=== PATIENT | male | born 1990 ===

== ENCOUNTER 2020-04-14 12:07 | Inpatient (IN) | payer OTHER, SELFPAY ==
[2020-04-14 12:13] VITALS: BP 138/104; PULSE 88; RESP 20; TEMP 36.9; O2SAT 97; BMI 32.1
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
--- NOTE | 2020-04-14 12:43 | PC.NURSE ---
A Lashawn in, pt w/ red raised area left arm due to injecting meth per pt.
[2020-04-14] MEDS: Lidocaine HCl 2 % MPF 5 ML VIAL SUBCUT (13:12)
--- NOTE | 2020-04-14 13:29 | PC.NURSE ---
Pt resting in room- was seen by Cortez Hardin, left arm abscess drained. Dressing clean, no drainage noted. Packing to be removed in 48 hrs per Cortez Hardin.
[2020-04-14 13:35] LABS: Amphetamine Screen Urine Not Detected (Not Detect); Barbiturates, Urine Not Detected (Not Detect); Benzodiazepines Screen Urine Not Detected (Not Detect); Cannabinoid Screen Urine Not Detected (Not Detect); Cocaine Screen Urine Not Detected (Not Detect); Opiate Screen Urine Not Detected (Not Detect); Phencyclidine Screen Urine Not Detected (Not Detect)
[2020-04-14 13:49] LABS: COVID-19 Test Negative (Negative)
[2020-04-14 14:00] VITALS: RESP 20
[2020-04-14 14:49] LABS: MANUAL DIFF FLAG NO
[2020-04-14 14:53] LABS: Basophils Percent Auto 0.2 % (0-2); Eosinophils Absolute Auto 0.1 X10*3/uL (0.0-0.4); Eosinophils Percent Auto 1.4 % (0-4); Hematocrit 37.1 % (42-52); Hemoglobin 12.5 g/dl (14.0-18.0); Imm Gran Abs Auto 0.01 X10*3/uL (0.00-0.03); Imm Gran Pct Auto 0.1 % (0.0-0.4); Lymphocytes Absolute Auto 2.3 X10*3/uL (1.2-4.9); Lymphocytes Percent Auto 25.5 % (20-40); Mean Corpuscular HGB Conc 33.7 g/dl (31.0-36.0); Mean Corpuscular Hemoglobin 29.5 pg (27.0-33.0); Mean Corpuscular Volume 87.5 fL (80-98); Mean Platelet Volume 9.9 fL (9.4-12.4); Monocytes Absolute Auto 0.4 X10*3/uL (0.1-1.2); Monocytes Percent Auto 4.9 % (2-11); Neutrophils Absolute Auto 6.1 X10*3/uL (2.0-8.3); Neutrophils Percent Auto 67.9 % (45-73); Platelet Count 242 X10*3/uL (160-400); Red Blood Count 4.24 X10*6/uL (4.60-5.80); Red Cell Distribution Width 13.4 % (11.0-16.0)
--- NOTE | 2020-04-14 15:02 | PC.NURSE ---
Called Clearance Representative in [place] to verify prespciption. Pt last received a week's prescription on 03/25/20.
[2020-04-14 15:18] LABS: Ethanol < 10 mg/dL
[2020-04-14 15:24] LABS: Alanine Aminotransferase 179 U/L (0-40); Albumin Level 3.6 g/dL (3.5-5.0); Alkaline Phosphatase 60 U/L (39-117); Anion Gap 9 (12-20); Aspartate Amino Transferase 105 U/L (5-37); Bilirubin Direct < 0.2 mg/dL (0.0-0.5); Bilirubin Total 0.2 mg/dL (0.0-1.0); Blood Urea Nitrogen 10 mg/dL (9-16); Calcium 8.9 mg/dL (8.4-10.2); Carbon Dioxide 30 mmol/L (22-29); Chloride 106 mmol/L (96-108); Creatinine Clr Calc Pharmacy 219.2; Estimated Glomerular Filt Rate > 60; Glucose Random 115 mg/dL (60-115); Potassium 4.2 mmol/L (3.3-5.1); Sodium 141 mmol/L (135-145); Total Protein 6.2 g/dL (6.5-8.0)
[2020-04-14] MEDS: Buprenorphine/Naloxone 8/2 mg FILM 1 FILM SUBLINGUAL ×2 (15:51→20:22)
[2020-04-14 16:00] VITALS: RESP 20
--- NOTE | 2020-04-14 16:34 | PC.NURSE ---
BHN in to evaluate
[2020-04-14 17:26] VITALS: BP 150/102; PULSE 78; RESP 16; TEMP 36.2; O2SAT 97
[2020-04-14 18:00] VITALS: RESP 20
--- NOTE | 2020-04-14 18:11 | PC.NURSE ---
Pt awake, dressing to left arm dry, intact, no concerns reported.
[2020-04-14 20:22] VITALS: BP 131/74; PULSE 75; RESP 18; TEMP 36.8; O2SAT 96
[2020-04-14] MEDS: Prazosin HCL 1 MG CAPSULE 2 MG PO (20:22)
--- NOTE | 2020-04-14 20:37 | PC.NURSE ---
Patient in bed resting quietly, no distress reported, compliant with HS PO medication, will continue to monitor.
[2020-04-15 01:05] VITALS: BP 140/72; PULSE 114; RESP 18; TEMP 36.7; O2SAT 97
[2020-04-15 01:56] VITALS: BMI 30.4
--- NOTE | 2020-04-15 02:33 | PC.ADMIT ---
Addendum entered by Cherry Britt RN 04/15/20 03:27: Medical hx: Tibia Tortion, IBS, HTN, per crisis information Original Note: Patient is a 29 year old Serbian speaking identified self as not a male which was confirmed with patient on admission. Pt was put in 505 to sleep tonight as the result. Communicate to staff coming to next shift to make room change and accommodate for this need as other patients may be d/c'd later on of the day. Patient was brought to [facility] ED via EMS secondary to patient contacting them for SI with plan to OD on meds or on heroin. Patient denied currently SI on admission but reports that he had SI with plan to OD on meds and stated that he experienced more nightmares but feel safe while on the unit. Patient disclosed the conflict between him and his mother and his sister about his SA. As the result he could not go back to the house. Patient stated that but I will able to be back to the house in 2 weeks . Patient did not staff to let his mother know about his SA. Patient denied any recent suicide attempts but reports he had had done in the past but not disclose any details. Medical hx: asthma ? , abscess on L upper arm which was drained while as in the ED on 04/14/20. Patient started on doxycycline 100 BID x7 days first dose given on the evening 04/14/20 with unknown dressing change order. Pysch hx: ADD, PTSD, anxiety, depression. Patient has hx of inpatient detox before for IV drug use heroin. Patient reports that his last use IV Meth a week ago which he had the abscess drained prior to be admitted to . Patient appeared angry/agitated and irritable, guarded on admission. He minimized his SA which lead to his stress and housing issues and family conflict. Utox neg and BAL neg. AST/ALT elevated (105/179). Patient is currently on Suboxone 8/2 mg BID which patient usually take 16mg once a day at home. Patient denied any alcohol abuse with last drink was a month ago. Patient signed CV, on 15 min checks for safety, contracted for safety. Most of medications were verified by this chief writer through [facility] preferred [facility] is currently closed. [facility]al [facility] as Pharm D from [facility] cannot access to the instruction how to take it. VSs stable, HR elevated at 114 as he got agitated prior to be brought up to M5. Continue to monitor for safety and recheck VS in the AM.
[2020-04-15] MEDS: lamoTRIgine 25 MG TABLET 50 MG PO (10:32)
[2020-04-15] MEDS: Buprenorphine/Naloxone 8/2 mg FILM 1 FILM SUBLINGUAL ×2 (10:34→21:07)
[2020-04-15 12:06] VITALS: BP 121/65; PULSE 87; RESP 18; TEMP 37.1; O2SAT 99
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
[2020-04-15 18:00] VITALS: BP 134/75; PULSE 79; TEMP 36.9
[2020-04-15 21:07] VITALS: BP 128/65; PULSE 72
[2020-04-15] MEDS: Prazosin HCL 1 MG CAPSULE 2 MG PO (21:07)
[2020-04-16 06:25] VITALS: BP 104/57; PULSE 66; RESP 18; TEMP 36.8; O2SAT 98
[2020-04-16 09:18] LABS: Cholesterol 140 mg/dL; HDL Cholesterol 44 mg/dL; LDL Cholesterol Calculated 82 mg/dl; Triglycerides 70 mg/dL
[2020-04-16 09:37] LABS: HBS Num1 122.35 mIU/mL (0-7.99); HBc Num1 0.31 S/CO (0.00-0.79); Hepatitis A Antibody IgM 0.13 Index (0-0.79); Hepatitis B Core Antibody Nonreactive (Nonreactive); ~HepC Num1 18.78 S/CO (0.00-0.79); ~Hepatitis A Antibody IgM Nonreactive (Nonreactive); ~Hepatitis B Surface Antibody REACTIVE (Nonreactive); ~Hepatitis C Antibody Reactive (Nonreactive)
[2020-04-16 09:40] LABS: Estimated Average Glucose 91 mg/dL; Hemoglobin A1c % 4.8 %
[2020-04-16 09:41] LABS: HBsAGNum1 0.22 S/CO (0.00-0.99); Hepatitis B Surface Antigen Negative (Negative)
[2020-04-16] MEDS: Buprenorphine/Naloxone 8/2 mg FILM 1 FILM SUBLINGUAL ×2 (09:53→21:29)
[2020-04-16] MEDS: lamoTRIgine 25 MG TABLET 50 MG PO (09:53)
[2020-04-16 10:30] LABS: Folate 14.5 ng/mL (> or = 4.0); Vitamin B12 640 pg/mL (200-900)
[2020-04-16 15:39] LABS: Influenza A PCR NEGATIVE (Negative); Influenza B PCR NEGATIVE (Negative); Resp Syncy Virus RNA Qual PCR NEGATIVE (Negative); SARS COV2 PCR INHOUSE NEGATIVE (Negative)
--- NOTE | 2020-04-16 16:03 | HO.PSYCHPN ---
Subjective Subjective Date of Service: 04/16/20 Reason For Visit: SI Interim History: Wayne has been in her room, no interaction with peers or staff. At times presents as irritable and minimally cooperative. Pt reports she continues to feel depressed. She reports everyone in my life has done something wrong to me, I can't trust anyone. She report she does not have anything to look forward to. She did agree that as she gets more stable she would like referrals to OP psychiatric treatment. She became very tearful talking about her son, and asked that I do not ask about him during our session today. Pt encourage to be more visible in the unit. He denies any plan or intent to hurt herself but does endorse passive suicidal ideation. No VH/AH. Medication Compliance: Yes Side effects from medications: No Attending Groups: No Review of Systems Review of Systems Yes all other systems are reviewed and are negative Constitutional: Reports no additional constitutional complaints, Denies body ache(s), Denies chills, Denies fever(s), Denies headache(s) and Denies weakness Eyes: Reports no additional eye complaints and Denies change in vision Reports system reviewed and no additional complaints, except as documented, Denies dizziness, Denies headache(s), Denies nasal congestion, Denies nasal discharge and Denies neck pain Cardiovascular: Reports no additional cardiovascular complaints, Denies chest pain, Denies leg edema and Denies dyspnea Respiratory: Reports no additional respiratory complaints, Denies cough and Denies dyspnea Gastrointestinal: Reports no additional gastrointestinal complaints, Denies abdominal pain, Denies diarrhea, Denies nausea and Denies vomiting Genitourinary: Denies urinary incontinence Musculoskeletal: Reports no additional musculoskeletal complaints, Denies back pain, Denies arthralgias, Denies joint swelling, Denies neck pain, Denies numbness and Denies tingling Skin/Breast: Reports system reviewed and no additional complaints, except as docu, Reports furuncle and Denies rash Reports system reviewed and no additional complaints, except as documented, Denies Abnormal speech present, Denies dizziness, Denies headache(s), Denies numbness, Denies tingling and Denies weakness Psychiatric: Denies anxiety, Reports depression, Denies visual hallucinations, Denies hallucinations, Denies tactile hallucinations, Denies homicidal ideation and Reports suicidal ideation Mental Status Exam Mental Status Exam Narrative: Appearance: MO, wearing hospital gown, disheveled, poor hygiene Behavior: irritable, guarded Psychomotor: intermittent agitation at times Speech: clear, normal rate/rhythm/volume, spontaneous TP: linear TC: no signs of psychosis, feeling depressed, suicidal, anxious Mood: depressed Affect: very irritable VH/AH: none Delusions: none Insight/judgment: poor x 2. memory/cog: alert, oriented x 3. Diagnostics Vital Signs (24Hr): Vital Signs - 24 hr 04/15/20 18:00 04/15/20 21:07 04/16/20 06:25 Temperature 98.5 F 98.3 F Pulse Rate 79 72 66 Respiratory Rate 18 Blood Pressure 134/75 128/65 104/57 L Pulse Oximetry 98 Body Mass Index 30.4 Labs Results: 04/14/20 14:42 04/14/20 14:42 Labs: Laboratory Results - last 48 hr 04/16/20 04/16/20 04/16/20 08:04 08:04 08:04 Estimat Average Glucose 91 Hemoglobin A1c % 4.8 Triglycerides Cholesterol LDL Cholesterol, Calc HDL Cholesterol Vitamin B12 640 Folate 14.5 Coronavirus (PCR) Hepatitis A IgM Ab Nonreactive Hep Bs Antigen Negative Hep Bs Antibody REACTIVE Hep B Core Total Ab Nonreactive Hepatitis C Ab (EIA) Reactive H Influenza Type A (PCR) Influenza Type B (PCR) RSV RNA Qual (PCR) 04/16/20 04/16/20 08:06 14:37 Estimat Average Glucose Hemoglobin A1c % Triglycerides 70 Cholesterol 140 LDL Cholesterol, Calc 82 HDL Cholesterol 44 Vitamin B12 Folate Coronavirus (PCR) NEGATIVE Hepatitis A IgM Ab Hep Bs Antigen Hep Bs Antibody Hep B Core Total Ab Hepatitis C Ab (EIA) Influenza Type A (PCR) NEGATIVE Influenza Type B (PCR) NEGATIVE RSV RNA Qual (PCR) NEGATIVE Medications Medications Current Medications Generic Name Dose Route Start Last Admin Trade Name Freq PRN Reason Stop Dose Admin Buprenorphine/Naloxone 1 film 04/14/20 21:00 04/16/20 09:53 Buprenorphine/Naloxone 8/2 Mg Film SUBLINGUAL 1 film BID ANGELES Administration Docusate Sodium 100 mg 04/15/20 00:29 Docusate Sodium 100 Mg Capsule PO BID PRN Constipation Doxycycline Hyclate 100 mg 04/14/20 21:00 04/16/20 09:53 Doxycycline Hyclate 100 Mg Tablet PO 04/21/20 21:00 100 mg BID ANGELES Administration Famotidine 20 mg 04/15/20 00:29 Famotidine 20 Mg Tablet PO TID PRN gerd Hydroxyzine HCl 50 mg 04/15/20 00:29 Hydroxyzine Hcl 25 Mg Tablet PO QID PRN Anxiety Ibuprofen 600 mg 04/15/20 00:29 Ibuprofen 600 Mg Tablet PO Q8H PRN Pain, Mild (Pain Scale 1-3) Lamotrigine 50 mg 04/15/20 09:00 04/16/20 09:53 Lamotrigine 25 Mg Tablet PO 50 mg DAILY ANGELES Administration Nicotine 21 mg 04/15/20 09:00 04/16/20 09:56 Nicotine 21 Mg Patch.Td24 TRANSDERMA Not Given DAILY ANGELES Nicotine Polacrilex 4 mg 04/15/20 00:29 Nicotine Polacrilex 2 Mg Gum BUCCAL Q2H PRN Nicotine Cravings Prazosin HCl 2 mg 04/14/20 21:00 04/15/20 21:07 Prazosin Hcl 1 Mg Capsule PO 2 mg BEDTIME ANGELES Administration Protocol Trazodone HCl 50 mg 04/15/20 00:29 Trazodone Hcl 50 Mg Tablet PO BEDTIME PRN Insomnia Allergies Allergies Allergy/AdvReac Type Severity Reaction Status Date / Time aripiprazole [From ABILIFY] Allergy Unknown UNKNOWN Unverified 11/22/19 19:33 Assessment & Plan Assessment & Plan (1) PTSD (post-traumatic stress disorder): Status: Acute Code(s): F43.10 - Post-traumatic stress disorder, unspecified Assessment and Plan: 1. Admit to M5 2. Increase Lamictal to 50mg po BID 3. Atarax 50mg po q6h 4. Prazosin 2mg po qhs. 5. Pt reports antidepressants have not been helpful. (2) Stimulant abuse: Status: Acute Code(s): F15.10 - Other stimulant abuse, uncomplicated Greater than 50% of the session was spent on counseling and/or coordination of care Reason for contiued inpatient stay Substantial Risk for: harm to self
[2020-04-16 18:00] VITALS: BP 129/70; PULSE 95; TEMP 36.4
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
[2020-04-16 21:28] VITALS: BP 141/70; PULSE 95
[2020-04-16] MEDS: Prazosin HCL 1 MG CAPSULE 2 MG PO (21:28)
[2020-04-17 06:30] VITALS: BP 107/66; PULSE 71; RESP 16; TEMP 36.6; O2SAT 99
[2020-04-17 07:00] VITALS: BMI 30.9
[2020-04-17] MEDS: lamoTRIgine 25 MG TABLET 50 MG PO ×2 (09:05→20:27)
[2020-04-17] MEDS: Buprenorphine/Naloxone 8/2 mg FILM 1 FILM SUBLINGUAL ×2 (09:06→20:28)
[2020-04-17] MEDS: Nicotine 21 MG PATCH.TD24 TRANSDERMA (09:06)
--- NOTE | 2020-04-17 15:20 | P.PNPSI_ITS ---
Subjective Subjective Date of Service: 04/17/20 Reason For Visit: SI Interim History: Wayne has been more visible today. She reports she feels less overwhelmed and depressed. She continues to report feeling hopeless and anxious at times but denies any plan or intent to hurt herself. She was encouraged to go to groups. She reports sleeping and eating better. She denies nightmares with prazosin but agrees to go back to higher dose as it also helps with anxiety. Review of Systems Review of Systems Yes all other systems are reviewed and are negative Constitutional: Reports no additional constitutional complaints, Denies body ac he(s), Denies chills, Denies fever(s), Denies headache(s) and Denies weakness Eyes: Reports no additional eye complaints and Denies change in vision Reports system reviewed and no additional complaints, except as documented, Denies dizziness, Denies headache(s), Denies nasal congestion, Denies nasal discharge and Denies neck pain Cardiovascular: Reports no additional cardiovascular complaints, Denies chest pain, Denies leg edema and Denies dyspnea Respiratory: Reports no additional respiratory complaints, Denies cough and Denies dyspnea Gastrointestinal: Reports no additional gastrointestinal complaints, Denies abdominal pain, Denies diarrhea, Denies nausea and Denies vomiting Genitourinary: Denies urinary incontinence Musculoskeletal: Reports no additional musculoskeletal complaints, Denies back pain, Denies arthralgias, Denies joint swelling, Denies neck pain, Denies numbness and Denies tingling Skin/Breast: Reports system reviewed and no additional complaints, except as docu, Reports furuncle and Denies rash Reports system reviewed and no additional complaints, except as documented, Denies Abnormal speech present, Denies dizziness, Denies headache(s), Denies numbness, Denies tingling and Denies weakness Psychiatric: Denies anxiety, Reports depression, Denies visual hallucinations, Denies hallucinations, Denies tactile hallucinations, Denies homicidal ideation and Reports suicidal ideation Mental Status Exam Mental Status Exam Narrative: Appearance: MO, wearing hospital gown, disheveled, poor hygiene Behavior: irritable, guarded Psychomotor: intermittent agitation at times Speech: clear, normal rate/rhythm/volume, spontaneous TP: linear TC: no signs of psychosis, feeling depressed, suicidal, anxious Mood: depressed Affect: very irritable VH/AH: none Delusions: none Insight/judgment: poor x 2. memory/cog: alert, oriented x 3. Diagnostics Vital Signs (24Hr): Vital Signs - 24 hr 04/16/20 18:00 04/16/20 21:28 04/17/20 06:30 Temperature 97.5 F 98 F Pulse Rate 95 95 71 Respiratory Rate 16 Blood Pressure 129/70 141/70 H 107/66 Pulse Oximetry 99 Body Mass Index 30.9 Labs Results: 04/14/20 14:42 04/14/20 14:42 Labs: Laboratory Results - last 48 hr 04/16/20 04/16/20 04/16/20 08:04 08:04 08:04 Estimat Average Glucose 91 Hemoglobin A1c % 4.8 Triglycerides Cholesterol LDL Cholesterol, Calc HDL Cholesterol Vitamin B12 640 Folate 14.5 Coronavirus (PCR) Hepatitis A IgM Ab Nonreactive Hep Bs Antigen Negative Hep Bs Antibody REACTIVE Hep B Core Total Ab Nonreactive Hepatitis C Ab (EIA) Reactive H Influenza Type A (PCR) Influenza Type B (PCR) RSV RNA Qual (PCR) 04/16/20 04/16/20 08:06 14:37 Estimat Average Glucose Hemoglobin A1c % Triglycerides 70 Cholesterol 140 LDL Cholesterol, Calc 82 HDL Cholesterol 44 Vitamin B12 Folate Coronavirus (PCR) NEGATIVE Hepatitis A IgM Ab Hep Bs Antigen Hep Bs Antibody Hep B Core Total Ab Hepatitis C Ab (EIA) Influenza Type A (PCR) NEGATIVE Influenza Type B (PCR) NEGATIVE RSV RNA Qual (PCR) NEGATIVE Medications Medications Current Medications Generic Name Dose Route Start Last Admin Trade Name Freq PRN Reason Stop Dose Admin Buprenorphine/Naloxone 1 film 04/14/20 21:00 04/17/20 09:06 Buprenorphine/Naloxone 8/2 Mg Film SUBLINGUAL 1 film BID ANGELES Administration Docusate Sodium 100 mg 04/15/20 00:29 Docusate Sodium 100 Mg Capsule PO BID PRN Constipation Doxycycline Hyclate 100 mg 04/14/20 21:00 04/17/20 09:06 Doxycycline Hyclate 100 Mg Tablet PO 04/21/20 21:00 100 mg BID ANGELES Administration Famotidine 20 mg 04/15/20 00:29 Famotidine 20 Mg Tablet PO TID PRN gerd Hydroxyzine HCl 50 mg 04/15/20 00:29 Hydroxyzine Hcl 25 Mg Tablet PO QID PRN Anxiety Ibuprofen 600 mg 04/15/20 00:29 Ibuprofen 600 Mg Tablet PO Q8H PRN Pain, Mild (Pain Scale 1-3) Lamotrigine 50 mg 04/15/20 09:00 04/17/20 09:05 Lamotrigine 25 Mg Tablet PO 50 mg DAILY ANGELES Administration Nicotine 21 mg 04/15/20 09:00 04/17/20 09:06 Nicotine 21 Mg Patch.Td24 TRANSDERMA 21 mg DAILY ANGELES Administration Nicotine Polacrilex 4 mg 04/15/20 00:29 Nicotine Polacrilex 2 Mg Gum BUCCAL Q2H PRN Nicotine Cravings Prazosin HCl 2 mg 04/14/20 21:00 04/16/20 21:28 Prazosin Hcl 1 Mg Capsule PO 2 mg BEDTIME ANGELES Administration Protocol Trazodone HCl 50 mg 04/15/20 00:29 Trazodone Hcl 50 Mg Tablet PO BEDTIME PRN Insomnia Allergies Allergies Allergy/AdvReac Type Severity Reaction Status Date / Time aripiprazole [From ABILIY] Allergy Unknown UNKNOWN Unverified 11/22/19 19:33 Assessment & Plan Assessment & Plan (1) Abscess: Status: Acute Code(s): L02.91 - Cutaneous abscess, unspecified Assessment and Plan: 1. Continue wound care, antibiotics (2) Acute post-traumatic stress disorder: Status: Acute Code(s): F43.11 - Post-traumatic stress disorder, acute Assessment and Plan: 1. increase Prazosin to 4mg po qhs 2. continue lamictal (3) PTSD (post-traumatic stress disorder): Status: Acute Code(s): F43.10 - Post-traumatic stress disorder, unspecified (4) Stimulant abuse: Status: Acute Code(s): F15.10 - Other stimulant abuse, uncomplicated Greater than 50% of the session was spent on counseling and/or coordination of care Reason for contiued inpatient stay Substantial Risk for: harm to self
[2020-04-17] MEDS: Nicotine Polacrilex 2 MG GUM 4 MG BUCCAL ×2 (16:23→19:25)
[2020-04-17 19:30] VITALS: BP 135/82; PULSE 99; TEMP 36.8
[2020-04-17 20:26] VITALS: BP 135/82; PULSE 99
[2020-04-17] MEDS: Prazosin HCL 1 MG CAPSULE 4 MG PO (20:26)
--- NOTE | 2020-04-17 23:26 | PC.NURSE ---
Pt expressed to this tag writer at that she would like her Suboxone 8/2mg SL BID order changed. Pt said she doesn't like to take the second dose of Suboxone so late. Pt said she hoped she could take it all at once in the AM, 16/4mg SL Daily. This tag writer explained that that might be too sedating and asked if she would tolerate Suboxone 8/2mg SL BID at 0800 and 1700 better and avoid the sedation of getting it all in one dose. Pt agreed that it would be acceptable if she got the second dose at 1700.
[2020-04-17] MEDS: hydrOXYzine HCL 25 MG TABLET 50 MG PO (23:45)
[2020-04-18 06:25] VITALS: BP 114/58; PULSE 76; RESP 18; TEMP 36.9; O2SAT 96
[2020-04-18] MEDS: Buprenorphine/Naloxone 8/2 mg FILM 1 FILM SUBLINGUAL ×2 (09:21→14:12)
[2020-04-18] MEDS: lamoTRIgine 25 MG TABLET 50 MG PO ×2 (09:21→20:22)
--- NOTE | 2020-04-18 13:26 | HO.PSYCHPN ---
Subjective Subjective Date of Service: 04/18/20 Reason For Visit: SI Interim History: Wayne was up this morning, more visible in the unit. She reports sleeping better, denies having nightmares. She reports feeling slightly more hopeful about her future but continues to report depressed mood. She reports eating as usual. However, she does continue to stay mostly in bed, minimally interactive with peers. Fair hygiene. Review of Systems Review of Systems Yes all other systems are reviewed and are negative Constitutional: Reports no additional constitutional complaints, Denies body ache(s), Denies chills, Denies fever(s), Denies headache(s) and Denies weakness Eyes: Reports no additional eye complaints and Denies change in vision Reports system reviewed and no additional complaints, except as documented, Denies dizziness, Denies headache(s), Denies nasal congestion, Denies nasal discharge and Denies neck pain Cardiovascular: Reports no additional cardiovascular complaints, Denies chest pain, Denies leg edema and Denies dyspnea Respiratory: Reports no additional respiratory complaints, Denies cough and Denies dyspnea Gastrointestinal: Reports no additional gastrointestinal complaints, Denies abdominal pain, Denies diarrhea, Denies nausea and Denies vomiting Genitourinary: Denies urinary incontinence Musculoskeletal: Reports no additional musculoskeletal complaints, Denies back pain, Denies arthralgias, Denies joint swelling, Denies neck pain, Denies numbness and Denies tingling Skin/Breast: Reports system reviewed and no additional complaints, except as docu, Reports furuncle and Denies rash Reports system reviewed and no additional complaints, except as documented, Denies Abnormal speech present, Denies dizziness, Denies headache(s), Denies numbness, Denies tingling and Denies weakness Psychiatric: Denies anxiety, Reports depression, Denies visual hallucinations, Denies hallucinations, Denies tactile hallucinations, Denies homicidal ideation and Reports suicidal ideation Mental Status Exam Mental Status Exam Narrative: Appearance: [place], wearing hospital gown, disheveled, poor hygiene Behavior: irritable, guarded Psychomotor: intermittent agitation at times Speech: clear, normal rate/rhythm/volume, spontaneous TP: linear TC: no signs of psychosis, feeling depressed, suicidal, anxious Mood: depressed Affect: very irritable VH/AH: none Si: passive, no plan HI: denies Delusions: none Insight/judgment: poor x 2. memory/cog: alert, oriented x 3. Diagnostics Vital Signs (24Hr): Vital Signs - 24 hr 04/17/20 19:30 04/17/20 20:26 04/18/20 06:25 Temperature 98.3 F 98.5 F Pulse Rate 99 99 76 Respiratory Rate 18 Blood Pressure 135/82 135/82 114/58 L Pulse Oximetry 96 Body Mass Index 30.9 Labs Results: 04/14/20 14:42 04/14/20 14:42 Labs: Laboratory Results - last 48 hr 04/16/20 14:37 Coronavirus (PCR) NEGATIVE Influenza Type A (PCR) NEGATIVE Influenza Type B (PCR) NEGATIVE RSV RNA Qual (PCR) NEGATIVE Medications Medications Current Medications Generic Name Dose Route Start Last Admin Trade Name Freq PRN Reason Stop Dose Admin Buprenorphine/Naloxone 1 film 04/14/20 21:00 04/18/20 09:21 Buprenorphine/Naloxone 8/2 Mg Film SUBLINGUAL 1 film BID ANGELES Administration Docusate Sodium 100 mg 04/15/20 00:29 Docusate Sodium 100 Mg Capsule PO BID PRN Constipation Doxycycline Hyclate 100 mg 04/14/20 21:00 04/18/20 09:21 Doxycycline Hyclate 100 Mg Tablet PO 04/21/20 21:00 100 mg BID ANGLEES Administration Famotidine 20 mg 04/15/20 00:29 Famotidine 20 Mg Tablet PO TID PRN gerd Hydroxyzine HCl 50 mg 04/15/20 00:29 04/17/20 23:45 Hydroxyzine Hcl 25 Mg Tablet PO 50 mg QID PRN Administration Anxiety Ibuprofen 600 mg 04/15/20 00:29 Ibuprofen 600 Mg Tablet PO Q8H PRN Pain, Mild (Pain Scale 1-3) Lamotrigine 50 mg 04/17/20 21:00 04/18/20 09:21 Lamotrigine 25 Mg Tablet PO 50 mg BID ANGELES Administration Nicotine 21 mg 04/15/20 09:00 04/18/20 12:15 Nicotine 21 Mg Patch.Td24 TRANSDERMA Not Given DAILY ANGELES Nicotine Polacrilex 4 mg 04/15/20 00:29 04/17/20 19:25 Nicotine Polacrilex 2 Mg Gum BUCCAL 4 mg Q2H PRN Administration Nicotine Cravings Prazosin HCl 4 mg 04/17/20 21:00 04/17/20 20:26 Prazosin Hcl 1 Mg Capsule PO 4 mg BEDTIME ANGELES Administration Protocol Trazodone HCl 50 mg 04/15/20 00:29 Trazodone Hcl 50 Mg Tablet PO BEDTIME PRN Insomnia Allergies Allergies Allergy/AdvReac Type Severity Reaction Status Date / Time aripiprazole [From [facility]] Allergy Unknown UNKNOWN Unverified 11/22/19 19:33 Assessment & Plan Assessment & Plan (1) Abscess: Status: Acute Code(s): L02.91 - Cutaneous abscess, unspecified Assessment and Plan: 1. Continue wound care, antibiotics (2) Acute post-traumatic stress disorder: Status: Acute Code(s): F43.11 - Post-traumatic stress disorder, acute Assessment and Plan: 1. increase Prazosin to 4mg po qhs 2. continue lamictal 50mg po BID (3) PTSD (post-traumatic stress disorder): Status: Acute Code(s): F43.10 - Post-traumatic stress disorder, unspecified (4) Stimulant abuse: Status: Acute Code(s): F15.10 - Other stimulant abuse, uncomplicated Greater than 50% of the session was spent on counseling and/or coordination of care Reason for contiued inpatient stay Substantial Risk for: harm to self
[2020-04-18] MEDS: Nicotine Polacrilex 2 MG GUM 4 MG BUCCAL ×2 (18:26→20:22)
[2020-04-18 20:15] VITALS: BP 125/70; PULSE 100; TEMP 37.4; O2SAT 100
[2020-04-18 20:23] VITALS: BP 125/70; PULSE 100
[2020-04-18] MEDS: Prazosin HCL 1 MG CAPSULE 4 MG PO (20:23)
[2020-04-18] MEDS: hydrOXYzine HCL 25 MG TABLET 50 MG PO (21:28)
[2020-04-18 22:40] VITALS: TEMP 37.1
[2020-04-19 06:45] VITALS: BP 92/49; PULSE 72; RESP 14; TEMP 36.3; O2SAT 98
[2020-04-19] MEDS: lamoTRIgine 25 MG TABLET 50 MG PO ×2 (09:19→20:33)
[2020-04-19] MEDS: Buprenorphine/Naloxone 8/2 mg FILM 2 FILM SUBLINGUAL (09:19)
[2020-04-19] MEDS: Nicotine 21 MG PATCH.TD24 TRANSDERMA (09:20)
[2020-04-19] MEDS: Nicotine Polacrilex 2 MG GUM 4 MG BUCCAL ×3 (10:09→21:11)
--- NOTE | 2020-04-19 14:50 | PC.NURSE ---
Gauze changed on L antecubital. No drainage, no complaints offered.
[2020-04-19 17:09] VITALS: BP 132/75; PULSE 109; RESP 18; TEMP 37.2; O2SAT 100
[2020-04-19 19:08] VITALS: BP 128/64; PULSE 83; TEMP 37.1
[2020-04-19 20:33] VITALS: BP 128/64; PULSE 83
[2020-04-19] MEDS: Prazosin HCL 1 MG CAPSULE 4 MG PO (20:33)
[2020-04-19] MEDS: hydrOXYzine HCL 25 MG TABLET 50 MG PO (20:36)
--- NOTE | 2020-04-19 22:16 | HO.PSYCHPN ---
Subjective Subjective Date of Service: 04/19/20 Reason For Visit: SI Interim History: Pt seen, chart reviewed, case discussed vitals reviewed: temp:99.7 Pt sitting in dark room; avoids eye contact; marginally cooperative. Pt says he's fine and agrees that he's better than when first admitted which he thinks is related to getting back on Lamictal. Pt says he's sleeping well. He denies SI. Pt says he does not need anything or have any complaints. Medication Compliance: Yes Attending Groups: No Mental Status Exam Mental Status Exam Narrative: Patient Appearance: Unkempt hair Patient Orientation: Person, Place, Time and Situation Level of Consciousness: Awake and Appropriate Patient Behavior: marginally Cooperative; avoiding Eye Contact Mood Description: irritable Affect Description: congruent Ability to Follow Directions: fair Speech Pattern: Clear and Appropriate Hallucinations: None Delusions: Not Present Thought Process: Intact Thought Content: denies SI Judgement and Insight: appears intact Diagnostics Vital Signs (24Hr): Vital Signs - 24 hr 04/18/20 22:40 04/19/20 06:45 04/19/20 17:09 Temperature 98.8 F 97.4 F 98.9 F Pulse Rate 72 109 H Respiratory Rate 14 18 Blood Pressure 92/49 L 132/75 Pulse Oximetry 98 100 04/19/20 19:08 04/19/20 20:33 Temperature 98.7 F Pulse Rate 83 83 Respiratory Rate Blood Pressure 128/64 128/64 Pulse Oximetry Body Mass Index 30.9 Labs Results: 04/14/20 14:42 04/14/20 14:42 Medications Medications Current Medications Generic Name Dose Route Start Last Admin Trade Name Kolbyq PRN Reason Stop Dose Admin Buprenorphine/Naloxone 2 film 04/19/20 09:00 04/19/20 09:19 Buprenorphine/Naloxone 8/2 Mg Film SUBLINGUAL 2 film DAILY ANGELES Administration Docusate Sodium 100 mg 04/15/20 00:29 Docusate Sodium 100 Mg Capsule PO BID PRN Constipation Doxycycline Hyclate 100 mg 04/14/20 21:00 04/19/20 20:33 Doxycycline Hyclate 100 Mg Tablet PO 04/21/20 21:00 100 mg BID ANGEELS Administration Famotidine 20 mg 04/15/20 00:29 Famotidine 20 Mg Tablet PO TID PRN gerd Hydroxyzine HCl 50 mg 04/15/20 00:29 04/19/20 20:36 Hydroxyzine Hcl 25 Mg Tablet PO 50 mg QID PRN Administration Anxiety Ibuprofen 600 mg 04/15/20 00:29 Ibuprofen 600 Mg Tablet PO Q8H PRN Pain, Mild (Pain Scale 1-3) Lamotrigine 50 mg 04/17/20 21:00 04/19/20 20:33 Lamotrigine 25 Mg Tablet PO 50 mg BID ANGELES Administration Nicotine 21 mg 04/15/20 09:00 04/19/20 09:20 Nicotine 21 Mg Patch.Td24 TRANSDERMA 21 mg DAILY ANGELES Administration Nicotine Polacrilex 4 mg 04/15/20 00:29 04/19/20 21:11 Nicotine Polacrilex 2 Mg Gum BUCCAL 4 mg Q2H PRN Administration Nicotine Cravings Prazosin HCl 4 mg 04/17/20 21:00 04/19/20 20:33 Prazosin Hcl 1 Mg Capsule PO 4 mg BEDTIME ANGELES Administration Protocol Trazodone HCl 50 mg 04/15/20 00:29 Trazodone Hcl 50 Mg Tablet PO BEDTIME PRN Insomnia Allergies Allergies Allergy/AdvReac Type Severity Reaction Status Date / Time aripiprazole [From [facility]] Allergy Unknown UNKNOWN Unverified 11/22/19 19:33 Assessment & Plan Impression: stabilizing; remains mostly isolated; adhering with meds DX ptsd, chronic plan: continue with current tx plan Greater than 50% of the session was spent on counseling and/or coordination of care Reason for contiued inpatient stay Substantial Risk for: med/psych decompensation
[2020-04-20 06:50] VITALS: BP 98/57; PULSE 65; RESP 1; TEMP 37.1; O2SAT 98
[2020-04-20] MEDS: Buprenorphine/Naloxone 8/2 mg FILM 2 FILM SUBLINGUAL (09:48)
[2020-04-20] MEDS: Nicotine 21 MG PATCH.TD24 TRANSDERMA (09:49)
[2020-04-20] MEDS: lamoTRIgine 25 MG TABLET 50 MG PO ×2 (09:49→21:00)
--- NOTE | 2020-04-20 10:30 | HO.PSYCHPN ---
Subjective Subjective Date of Service: 04/20/20 Reason For Visit: SI Interim History: Pt seen, chart reviewed, case discussed vitals reviewed: WNL Pt guarded; says he's good. He denies any complaints; says he does not need anything. Medication Compliance: Yes Attending Groups: No Mental Status Exam Mental Status Exam Narrative: Patient Appearance: Unkempt hair Patient Orientation: Person, Place, Time and Situation Level of Consciousness: Awake and Appropriate Patient Behavior: marginally Cooperative; avoiding Eye Contact Mood Description: irritable Affect Description: congruent Ability to Follow Directions: fair Speech Pattern: Clear and Appropriate Hallucinations: None Delusions: Not Present Thought Process: Intact Thought Content: denies SI Judgement and Insight: appears intact Diagnostics Vital Signs (24Hr): Vital Signs - 24 hr 04/19/20 17:09 04/19/20 19:08 04/19/20 20:33 Temperature 98.9 F 98.7 F Pulse Rate 109 H 83 83 Respiratory Rate 18 Blood Pressure 132/75 128/64 128/64 Pulse Oximetry 100 04/20/20 06:50 Temperature 98.7 F Pulse Rate 65 Respiratory Rate 1 L Blood Pressure 98/57 L Pulse Oximetry 98 Body Mass Index 30.9 Labs Results: 04/14/20 14:42 04/14/20 14:42 Medications Medications Current Medications Generic Name Dose Route Start Last Admin Trade Name Freq PRN Reason Stop Dose Admin Buprenorphine/Naloxone 2 film 04/19/20 09:00 04/20/20 09:48 Buprenorphine/Naloxone 8/2 Mg Film SUBLINGUAL 2 film DAILY ANGELES Administration Docusate Sodium 100 mg 04/15/20 00:29 Docusate Sodium 100 Mg Capsule PO BID PRN Constipation Doxycycline Hyclate 100 mg 04/14/20 21:00 04/20/20 09:49 Doxycycline Hyclate 100 Mg Tablet PO 04/21/20 21:00 100 mg BID ANGELES Administration Famotidine 20 mg 04/15/20 00:29 Famotidine 20 Mg Tablet PO TID PRN gerd Hydroxyzine HCl 50 mg 04/15/20 00:29 04/19/20 20:36 Hydroxyzine Hcl 25 Mg Tablet PO 50 mg QID PRN Administration Anxiety Ibuprofen 600 mg 04/15/20 00:29 Ibuprofen 600 Mg Tablet PO Q8H PRN Pain, Mild (Pain Scale 1-3) Lamotrigine 50 mg 04/17/20 21:00 04/20/20 09:49 Lamotrigine 25 Mg Tablet PO 50 mg BID ANGELES Administration Nicotine 21 mg 04/15/20 09:00 04/20/20 09:49 Nicotine 21 Mg Patch.Td24 TRANSDERMA 21 mg DAILY ANGELES Administration Nicotine Polacrilex 4 mg 04/15/20 00:29 04/19/20 21:11 Nicotine Polacrilex 2 Mg Gum BUCCAL 4 mg Q2H PRN Administration Nicotine Cravings Prazosin HCl 4 mg 04/17/20 21:00 04/19/20 20:33 Prazosin Hcl 1 Mg Capsule PO 4 mg BEDTIME ANGELES Administration Protocol Trazodone HCl 50 mg 04/15/20 00:29 Trazodone Hcl 50 Mg Tablet PO BEDTIME PRN Insomnia Allergies Allergies Allergy/AdvReac Type Severity Reaction Status Date / Time aripiprazole [From [facility]] Allergy Unknown UNKNOWN Unverified 11/22/19 19:33 Assessment & Plan Impression: stabilizing; less isolated today, out in milue more; adhering with meds DX ptsd, chronic plan: continue with current tx plan Greater than 50% of the session was spent on counseling and/or coordination of care Reason for contiued inpatient stay Substantial Risk for: med/psych decompensation
[2020-04-20] MEDS: Nicotine Polacrilex 2 MG GUM 4 MG BUCCAL ×3 (13:04→18:47)
[2020-04-20] MEDS: hydrOXYzine HCL 25 MG TABLET 50 MG PO ×2 (15:27→21:00)
[2020-04-20 16:51] VITALS: BP 123/68; PULSE 89; TEMP 37.2
[2020-04-20 21:00] VITALS: BP 149/84; PULSE 89
[2020-04-20] MEDS: Prazosin HCL 1 MG CAPSULE 4 MG PO (21:00)
[2020-04-21 06:50] VITALS: BP 113/57; PULSE 69; RESP 18; TEMP 36.9; O2SAT 98
[2020-04-21] MEDS: Nicotine 21 MG PATCH.TD24 TRANSDERMA (09:29)
[2020-04-21] MEDS: Buprenorphine/Naloxone 8/2 mg FILM 2 FILM SUBLINGUAL (09:29)
[2020-04-21] MEDS: lamoTRIgine 25 MG TABLET 50 MG PO ×2 (09:29→20:57)
[2020-04-21] MEDS: Nicotine Polacrilex 2 MG GUM 4 MG BUCCAL ×5 (13:59→23:18)
[2020-04-21 18:00] VITALS: BP 123/67; PULSE 79; TEMP 36.8
[2020-04-21] MEDS: hydrOXYzine HCL 25 MG TABLET 50 MG PO ×2 (18:24→21:05)
[2020-04-21 20:57] VITALS: BP 123/67; PULSE 79
[2020-04-21] MEDS: Prazosin HCL 1 MG CAPSULE 4 MG PO (20:57)
[2020-04-22 06:40] VITALS: BP 103/55; PULSE 72; RESP 16; TEMP 36.1; O2SAT 96
[2020-04-22] MEDS: lamoTRIgine 25 MG TABLET 50 MG PO (09:25)
[2020-04-22] MEDS: Nicotine 21 MG PATCH.TD24 TRANSDERMA (09:25)
[2020-04-22] MEDS: Buprenorphine/Naloxone 8/2 mg FILM 2 FILM SUBLINGUAL (09:25)
--- NOTE | 2020-04-22 09:34 | P.PNPSI_ITS ---
Subjective Subjective Date of Service: 04/21/20 Reason For Visit: SI Interim History: Pt seen, chart reviewed, case discussed vitals reviewed Pt guarded; asleep in dark room. [employer] woke pt up; pt says he's good. He denies any complaints; says he does not need anything. Medication Compliance: Yes Attending Groups: No Mental Status Exam Mental Status Exam Narrative: Patient Appearance: Unkempt hair Patient Orientation: Person, Place, Time and Situation Level of Consciousness: Awake and Appropriate Patient Behavior: marginally Cooperative; avoiding Eye Contact Mood Description: irritable Affect Description: congruent Ability to Follow Directions: fair Speech Pattern: Clear and Appropriate Hallucinations: None Delusions: Not Present Thought Process: Intact Thought Content: denies SI Judgement and Insight: appears intact Diagnostics Vital Signs (24Hr): Vital Signs - 24 hr 04/21/20 18:00 04/21/20 20:57 04/22/20 06:40 Temperature 98.3 F 96.9 F Pulse Rate 79 79 72 Respiratory Rate 16 Blood Pressure 123/67 123/67 103/55 L Pulse Oximetry 96 Body Mass Index 30.9 Labs Results: 04/14/20 14:42 04/14/20 14:42 Medications Medications Current Medications Generic Name Dose Route Start Last Admin Trade Name Freq PRN Reason Stop Dose Admin Buprenorphine/Naloxone 2 film 04/19/20 09:00 04/22/20 09:25 Buprenorphine/Naloxone 8/2 Mg Film SUBLINGUAL 2 film DAILY ANGELES Administration Docusate Sodium 100 mg 04/15/20 00:29 Docusate Sodium 100 Mg Capsule PO BID PRN Constipation Famotidine 20 mg 04/15/20 00:29 Famotidine 20 Mg Tablet PO TID PRN gerd Hydroxyzine HCl 50 mg 04/15/20 00:29 04/21/20 21:05 Hydroxyzine Hcl 25 Mg Tablet PO 50 mg QID PRN Administration Anxiety Ibuprofen 600 mg 04/15/20 00:29 Ibuprofen 600 Mg Tablet PO Q8H PRN Pain, Mild (Pain Scale 1-3) Lamotrigine 50 mg 04/17/20 21:00 04/22/20 09:25 Lamotrigine 25 Mg Tablet PO 50 mg BID ANGELES Administration Nicotine 21 mg 04/15/20 09:00 04/22/20 09:25 Nicotine 21 Mg Patch.Td24 TRANSDERMA 21 mg DAILY ANGELES Administration Nicotine Polacrilex 4 mg 04/15/20 00:29 04/21/20 23:18 Nicotine Polacrilex 2 Mg Gum BUCCAL 4 mg Q2H PRN Administration Nicotine Cravings Prazosin HCl 4 mg 04/17/20 21:00 04/21/20 20:57 Prazosin Hcl 1 Mg Capsule PO 4 mg BEDTIME ANGELES Administration Protocol Trazodone HCl 50 mg 04/15/20 00:29 Trazodone Hcl 50 Mg Tablet PO BEDTIME PRN Insomnia Allergies Allergies Allergy/AdvReac Type Severity Reaction Status Date / Time aripiprazole [From [facility]] Allergy Unknown UNKNOWN Unverified 11/22/19 19:33 Assessment & Plan Impression: stabilizing; less isolated today, out in milue more; adhering with meds DX ptsd, chronic plan: continue with current tx plan Greater than 50% of the session was spent on counseling and/or coordination of care Reason for contiued inpatient stay Substantial Risk for: med/psych decompensation
--- NOTE | 2020-04-22 10:49 | P.PNPSI_ITS ---
Subjective Subjective Date of Service: 04/22/20 Reason For Visit: SI Interim History: Pt slightly more visible over the weekend but does not attend groups, nor she interacts with peers. She reports overall feeling less overwhelmed. She reports decreased nightmares with prazosin. She continues to talk about self as someone who everybody despises, no one cares about me. She reports decreased anxious mood. She continues to endorse depressed mood, anhedonia, intermittent suicidal ideation but denies any plan or intent to hurt self. We discussed increasing Lamictal. Review of Systems Review of Systems Yes all other systems are reviewed and are negative Constitutional: Reports no additional constitutional complaints, Denies body ache(s), Denies chills, Denies fever(s), Denies headache(s) and Denies weakness Eyes: Reports no additional eye complaints and Denies change in vision Reports system reviewed and no additional complaints, except as documented, Denies dizziness, Denies headache(s), Denies nasal congestion, Denies nasal dis charge and Denies neck pain Cardiovascular: Reports no additional cardiovascular complaints, Denies chest pain, Denies leg edema and Denies dyspnea Respiratory: Reports no additional respiratory complaints, Denies cough and Denies dyspnea Gastrointestinal: Reports no additional gastrointestinal complaints, Denies abdominal pain, Denies diarrhea, Denies nausea and Denies vomiting Genitourinary: Denies urinary incontinence Musculoskeletal: Reports no additional musculoskeletal complaints, Denies back pain, Denies arthralgias, Denies joint swelling, Denies neck pain, Denies numbness and Denies tingling Skin/Breast: Reports system reviewed and no additional complaints, except as docu, Reports furuncle and Denies rash Reports system reviewed and no additional complaints, except as documented, Denies Abnormal speech present, Denies dizziness, Denies headache(s), Denies numbness, Denies tingling and Denies weakness Psychiatric: Denies anxiety, Reports depression, Denies visual hallucinations, Denies hallucinations, Denies tactile hallucinations, Denies homicidal ideation and Reports suicidal ideation Mental Status Exam Mental Status Exam Narrative: Patient Appearance: Unkempt hair Patient Orientation: Person, Place, Time and Situation Level of Consciousness: Awake and Appropriate Patient Behavior: marginally Cooperative; avoiding Eye Contact Mood Description: irritable Affect Description: congruent Ability to Follow Directions: fair Speech Pattern: Clear and Appropriate Hallucinations: None Delusions: Not Present Thought Process: Intact Thought Content: denies SI Judgement and Insight: appears intact Diagnostics Vital Signs (24Hr): Vital Signs - 24 hr 04/21/20 18:00 04/21/20 20:57 04/22/20 06:40 Temperature 98.3 F 96.9 F Pulse Rate 79 79 72 Respiratory Rate 16 Blood Pressure 123/67 123/67 103/55 L Pulse Oximetry 96 Body Mass Index 30.9 Labs Results: 04/14/20 14:42 04/14/20 14:42 Medications Medications Current Medications Generic Name Dose Route Start Last Admin Trade Name Freq PRN Reason Stop Dose Admin Buprenorphine/Naloxone 2 film 04/19/20 09:00 04/22/20 09:25 Buprenorphine/Naloxone 8/2 Mg Film SUBLINGUAL 2 film DAILY ANGELES Administration Docusate Sodium 100 mg 04/15/20 00:29 Docusate Sodium 100 Mg Capsule PO BID PRN Constipation Famotidine 20 mg 04/15/20 00:29 Famotidine 20 Mg Tablet PO TID PRN gerd Hydroxyzine HCl 50 mg 04/15/20 00:29 04/21/20 21:05 Hydroxyzine Hcl 25 Mg Tablet PO 50 mg QID PRN Administration Anxiety Ibuprofen 600 mg 04/15/20 00:29 Ibuprofen 600 Mg Tablet PO Q8H PRN Pain, Mild (Pain Scale 1-3) Nicotine 21 mg 04/15/20 09:00 04/22/20 09:25 Nicotine 21 Mg Patch.Td24 TRANSDERMA 21 mg DAILY ANGELES Administration Nicotine Polacrilex 4 mg 04/15/20 00:29 04/21/20 23:18 Nicotine Polacrilex 2 Mg Gum BUCCAL 4 mg Q2H PRN Administration Nicotine Cravings Prazosin HCl 4 mg 04/17/20 21:00 04/21/20 20:57 Prazosin Hcl 1 Mg Capsule PO 4 mg BEDTIME ANGELES Administration Protocol Trazodone HCl 50 mg 04/15/20 00:29 Trazodone Hcl 50 Mg Tablet PO BEDTIME PRN Insomnia Allergies Allergies Allergy/AdvReac Type Severity Reaction Status Date / Time aripiprazole [From [facility]] Allergy Unknown UNKNOWN Unverified 11/22/19 19:33 Assessment & Plan Assessment & Plan (1) Abscess: Status: Acute Code(s): L02.91 - Cutaneous abscess, unspecified Assessment and Plan: 1. Healed- no signs of infection. (2) Acute post-traumatic stress disorder: Status: Acute Code(s): F43.11 - Post-traumatic stress disorder, acute Assessment and Plan: 1. Continue Prazosin to 4mg po qhs 2. Increase lamictal 50mg po daily and 100mg po qhs. (3) PTSD (post-traumatic stress disorder): Status: Acute Code(s): F43.10 - Post-traumatic stress disorder, unspecified (4) Stimulant abuse: Status: Acute Code(s): F15.10 - Other stimulant abuse, uncomplicated Greater than 50% of the session was spent on counseling and/or coordination of care Reason for contiued inpatient stay Substantial Risk for: harm to self
[2020-04-22] MEDS: Nicotine Polacrilex 2 MG GUM 4 MG BUCCAL ×3 (13:30→21:40)
[2020-04-22] MEDS: hydrOXYzine HCL 25 MG TABLET 50 MG PO ×2 (14:03→21:40)
[2020-04-22] MEDS: Ibuprofen 600 MG TABLET PO (14:03)
[2020-04-22 21:35] VITALS: BP 121/65; PULSE 101; TEMP 37.1
[2020-04-22 21:41] VITALS: BP 121/65; PULSE 101
[2020-04-22] MEDS: lamoTRIgine 100 MG TABLET PO (21:41)
[2020-04-22] MEDS: Prazosin HCL 1 MG CAPSULE 4 MG PO (21:41)
[2020-04-23 06:25] VITALS: BP 102/54; PULSE 68; RESP 18; TEMP 36.7; O2SAT 97
[2020-04-23] MEDS: lamoTRIgine 25 MG TABLET 50 MG PO (09:28)
[2020-04-23] MEDS: Buprenorphine/Naloxone 8/2 mg FILM 2 FILM SUBLINGUAL (09:29)
[2020-04-23] MEDS: Nicotine 21 MG PATCH.TD24 TRANSDERMA (09:29)
[2020-04-23] MEDS: Nicotine Polacrilex 2 MG GUM 4 MG BUCCAL ×4 (10:25→20:35)
--- NOTE | 2020-04-23 10:51 | HO.PSYCHPN ---
Subjective Subjective Date of Service: 04/23/20 Reason For Visit: SI Interim History: Pt continues to present with brighter affect, non labile and much less irritable. She reports having some nightmares last night but states much better than without prazosin. She reports decreased symptoms of depression in that she is future oriented and willing to engage in OP psychiatric treatment. She reports less anxious mood during the day, but using PRN. She denies suicidal or homicidal ideation. Pt encouraged to attend groups. Review of Systems Review of Systems Yes all other systems are reviewed and are negative Constitutional: Reports no additional constitutional complaints, Denies body ache(s), Denies chills, Denies fever(s), Denies headache(s) and Denies weakness Eyes: Reports no additional eye complaints and Denies change in vision Reports system reviewed and no additional complaints, except as documented, Denies dizziness, Denies headache(s), Denies nasal congestion, Denies nasal discharge and Denies neck pain Cardiovascular: Reports no additional cardiovascular complaints, Denies chest pain, Denies leg edema and Denies dyspnea Respiratory: Reports no additional respiratory complaints, Denies cough and Denies dyspnea Gastrointestinal: Reports no additional gastrointestinal complaints, Denies abdominal pain, Denies diarrhea, Denies nausea and Denies vomiting Genitourinary: Denies urinary incontinence Musculoskeletal: Reports no additional musculoskeletal complaints, Denies back pain, Denies arthralgias, Denies joint swelling, Denies neck pain, Denies numbness and Denies tingling Skin/Breast: Reports system reviewed and no additional complaints, except as docu, Reports furuncle and Denies rash Reports system reviewed and no additional complaints, except as documented, Denies Abnormal speech present, Denies dizziness, Denies headache(s), Denies numbness, Denies tingling and Denies weakness Psychiatric: Denies anxiety, Reports depression, Denies visual hallucinations, Denies hallucinations, Denies tactile hallucinations, Denies homicidal ideation and Reports suicidal ideation Mental Status Exam Mental Status Exam Narrative: Patient Appearance: Unkempt hair Patient Orientation: Person, Place, Time and Situation Level of Consciousness: Awake and Appropriate Patient Behavior: marginally Cooperative; avoiding Eye Contact Mood Description: irritable Affect Description: congruent Ability to Follow Directions: fair Speech Pattern: Clear and Appropriate Hallucinations: None Delusions: Not Present Thought Process: Intact Thought Content: denies SI Judgement and Insight: appears intact Diagnostics Vital Signs (24Hr): Vital Signs - 24 hr 04/22/20 21:35 04/22/20 21:41 04/23/20 06:25 Temperature 98.7 F 98.1 F Pulse Rate 101 H 101 H 68 Respiratory Rate 18 Blood Pressure 121/65 121/65 102/54 L Pulse Oximetry 97 Body Mass Index 30.9 Labs Results: 04/14/20 14:42 04/14/20 14:42 Medications Medications Current Medications Generic Name Dose Route Start Last Admin Trade Name Freq PRN Reason Stop Dose Admin Buprenorphine/Naloxone 2 film 04/19/20 09:00 04/23/20 09:29 Buprenorphine/Naloxone 8/2 Mg Film SUBLINGUAL 2 film DAILY ANGELES Administration Docusate Sodium 100 mg 04/15/20 00:29 Docusate Sodium 100 Mg Capsule PO BID PRN Constipation Famotidine 20 mg 04/15/20 00:29 Famotidine 20 Mg Tablet PO TID PRN gerd Hydroxyzine HCl 50 mg 04/15/20 00:29 04/22/20 21:40 Hydroxyzine Hcl 25 Mg Tablet PO 50 mg QID PRN Administration Anxiety Ibuprofen 600 mg 04/15/20 00:29 04/22/20 14:03 Ibuprofen 600 Mg Tablet PO 600 mg Q8H PRN Administration Pain, Mild (Pain Scale 1-3) Lamotrigine 100 mg 04/22/20 21:00 04/22/20 21:41 Lamotrigine 100 Mg Tablet PO 100 mg BEDTIME ANGELES Administration Lamotrigine 50 mg 04/23/20 09:00 04/23/20 09:28 Lamotrigine 25 Mg Tablet PO 50 mg DAILY ANGELES Administration Nicotine 21 mg 04/15/20 09:00 04/23/20 09:29 Nicotine 21 Mg Patch.Td24 TRANSDERMA 21 mg DAILY ANGELES Administration Nicotine Polacrilex 4 mg 04/15/20 00:29 04/23/20 10:25 Nicotine Polacrilex 2 Mg Gum BUCCAL 4 mg Q2H PRN Administration Nicotine Cravings Prazosin HCl 4 mg 04/17/20 21:00 04/22/20 21:41 Prazosin Hcl 1 Mg Capsule PO 4 mg BEDTIME ANGELES Administration Protocol Trazodone HCl 50 mg 04/15/20 00:29 Trazodone Hcl 50 Mg Tablet PO BEDTIME PRN Insomnia Allergies Allergies Allergy/AdvReac Type Severity Reaction Status Date / Time aripiprazole [From ABILIFY] Allergy Unknown UNKNOWN Unverified 11/22/19 19:33 Assessment & Plan Assessment & Plan (1) Abscess: Status: Acute Code(s): L02.91 - Cutaneous abscess, unspecified Assessment and Plan: 1. Healed- no signs of infection. (2) Acute post-traumatic stress disorder: Status: Acute Code(s): F43.11 - Post-traumatic stress disorder, acute Assessment and Plan: 1. Continue Prazosin to 4mg po qhs 2. Increase lamictal 50mg po daily and 100mg po qhs. (3) PTSD (post-traumatic stress disorder): Status: Acute Code(s): F43.10 - Post-traumatic stress disorder, unspecified (4) Stimulant abuse: Status: Acute Code(s): F15.10 - Other stimulant abuse, uncomplicated Greater than 50% of the session was spent on counseling and/or coordination of care Reason for contiued inpatient stay Substantial Risk for: harm to self
[2020-04-23] MEDS: Ibuprofen 600 MG TABLET PO (10:58)
[2020-04-23] MEDS: hydrOXYzine HCL 25 MG TABLET 50 MG PO ×2 (15:53→20:48)
[2020-04-23] MEDS: Acetaminophen 325 MG TABLET 650 MG PO (16:38)
[2020-04-23 18:00] VITALS: BP 125/60; PULSE 97; TEMP 36.5
[2020-04-23 20:47] VITALS: BP 125/60; PULSE 97
[2020-04-23] MEDS: Prazosin HCL 1 MG CAPSULE 4 MG PO (20:47)
[2020-04-23] MEDS: lamoTRIgine 100 MG TABLET PO (20:48)
[2020-04-24 06:40] VITALS: BP 123/61; PULSE 77; RESP 16; TEMP 36; O2SAT 98
[2020-04-24] MEDS: lamoTRIgine 25 MG TABLET 50 MG PO (09:01)
[2020-04-24] MEDS: Nicotine 21 MG PATCH.TD24 TRANSDERMA (09:02)
[2020-04-24] MEDS: Buprenorphine/Naloxone 8/2 mg FILM 2 FILM SUBLINGUAL (09:02)
[2020-04-24 09:23] VITALS: BMI 32.8
--- NOTE | 2020-04-24 11:24 | PM.PSYDC ---
DS: Providers Provider Date of Service: 05/26/20 Date of admission: 04/14/20 23:33 Primary care physician: Unknown Physician Consults: 04/16/20 16:21 Consult to Wound Care Provider Routine Consulting Provider: Page Fay Reason for consultation: l antecubital dsd recommendations Has provider been notified: Yes DS: Diagnosis Discharge Diagnosis (1) Abscess: Status: Deleted Problem details: pt with PTSD other psych issues but with iv drug abuse and abscess in left antecubital area drained by ER - looks ok- cont with po antibx to completion, no need for packing just superficial gauze to be changed daily. pt and nursing staff understand and agree with the plan. warm compress prn (2) Acute post-traumatic stress disorder: Status: Deleted (3) PTSD (post-traumatic stress disorder): Status: Acute (4) Stimulant abuse: Status: Acute (5) Borderline personality disorder: Status: Acute DS: Medications Discharge Medications Home Medications: Home Medications Medication Instructions Recorded Confirmed buprenorphine-naloxone [Suboxone] 2 film BUCCAL DAILY 04/14/20 04/15/20 albuterol sulfate 180 puff PO Q4-6H PRN 04/15/20 04/15/20 Previous Rx's Medication Instructions Recorded acetaminophen 650 mg PO Q4H PRN 15 Days #30 tab 04/24/20 docusate sodium 100 mg PO BID PRN 30 Days #60 cap 04/24/20 famotidine 20 mg PO TID PRN 15 Days #45 tab 04/24/20 ibuprofen 600 mg PO Q8H PRN 15 Days #30 tab 04/24/20 lamotrigine 50 mg PO DAILY 30 Days #60 tab 04/24/20 lamotrigine 100 mg PO BEDTIME 30 Days #30 tab 04/24/20 nicotine 21 mg TRANSDERMAL DAILY 30 Days 04/24/20 #30 ea nicotine (polacrilex) 4 mg BUCCAL Q2H PRN 15 Days #60 ea 04/24/20 prazosin 4 mg PO BEDTIME 15 Days #60 cap 04/24/20 trazodone 50 mg PO BEDTIME PRN 30 Days #30 04/24/20 tab Discharge Plan Discharge Patient Disposition: Home, Self-Care Referrals: [facility] [Other] (Message left. Please follow up, or walk in if needed.) Discharge Medications: New acetaminophen 325 mg Tablet 650 mg PO Q4H PRN (Reason: Pain, Moderate (Pain Scale 4-6) 15 Days Qty: 30 RF: 0 trazodone 50 mg Tablet 50 mg PO BEDTIME PRN (Reason: Insomnia) 30 Days Qty: 30 RF: 0 nicotine (polacrilex) 2 mg Gum 4 mg buccal Q2H PRN (Reason: Nicotine Cravings) 15 Days Qty: 60 RF: 0 prazosin 1 mg Capsule 4 mg PO BEDTIME 15 Days Qty: 60 RF: 1 lamotrigine 25 mg Tablet 50 mg PO DAILY 30 Days Qty: 60 RF: 0 famotidine 20 mg Tablet 20 mg PO TID PRN (Reason: gerd) 15 Days Qty: 45 RF: 0 nicotine 21 mg/24 hr Patch 24 Hour 21 mg transdermal DAILY 30 Days Qty: 30 RF: 0 docusate sodium 100 mg Capsule 100 mg PO BID PRN (Reason: Constipation) 30 Days Qty: 60 RF: 0 ibuprofen 600 mg Tablet 600 mg PO Q8H PRN (Reason: Pain, Mild (Pain Scale 1-3)) 15 Days Qty: 30 RF: 0 lamotrigine 100 mg Tablet 100 mg PO BEDTIME 30 Days Qty: 30 RF: 0 buprenorphine-naloxone [Suboxone] 8-2 mg film 2 film buccal DAILY Qty: 14 RF: 0 Continued albuterol sulfate 90 mcg 180 puff PO Q4-6H PRN (Reason: Shortness Of Breath Or Wheezing) RF: 0 Discontinued lamotrigine 25 mg Tablet 50 mg PO DAILY RF: 0 prazosin 2 mg Capsule 4 mg PO BEDTIME RF: 0 buprenorphine-naloxone [Suboxone] 8-2 mg Film 2 film BUCCAL DAILY RF: 0 Discharge Orders: Discharge Order (Routine); Ordered 04/24/20 Ordered By: Page Fay Diet: regular diet Activity on Discharge: As tolerated Stand Alone Forms: Patient Portal Discharge page, Community Support Visit Report Forms: Patient Portal Discharge page Care Plan Goals: 1. Follow up with referrals 2. Take medications as prescribed. Health Concerns: 1. Follow up with PCP Plan of Treatment: 1. Follow up with referrals 2. Take medications as prescribed. Discharge Date/Time: 04/24/20 13:34 Mental Status Exam Mental Status Exam Narrative: Patient Appearance: Unkempt hair Patient Orientation: Person, Place, Time and Situation Level of Consciousness: Awake and Appropriate Patient Behavior: marginally Cooperative; avoiding Eye Contact Mood Description: irritable Affect Description: congruent Ability to Follow Directions: fair Speech Pattern: Clear and Appropriate Hallucinations: None Delusions: Not Present Thought Process: Intact Thought Content: denies SI Judgement and Insight: appears intact DS: Summary Hospital Course Hospital Course: Wayne is a 29 y/o transgender male to female (prefers she pronoun) who was brought [place] [facility] [place] after he called 911 reporting suicidal ideation with plan to either OD on heroin or on his medications. He reported that in past several days he has experienced increased flashbacks of past traumatic experiences, increased anxious mood, racing thoughts, suicidal ideation. Pt denies hx of VH/AH. He reports poor sleep, poor appetite. He continues to endorse suicidal ideation but denies any intent. Past Psychiatric History: Inpatient: 5 previous inpatient admissions. Most recent one at [facility] Jan 2020. OP: none currently. Suicide attempts: 2 OD 5-6 years ago and in 2019 he OD on heroin. PAST MEDICATION TRIALS: Depakote, trileptal, abilify, lamictal (reports it helpful at higher doses), prazosin, clonidine HOSPITAL COURSE On the unit, Wayne presented as very irritable, minimally cooperative with treatment team. She reported increased depression, suicidal ideation and a overall feeling of being rejected and not loved by anyone in the world. She was very hopeless, with themes of emptiness and despair. She did report no plan or intent to hurt herself. We discussed risks, benefits and alternative treatment options. She reported lamictal being helpful for mood. She also reported prazosin being helpful for anxiety. We discussed adding an antipsychotic for mood regulation but Wayne declined stating she had been on many in the past with no effect. Her affect gradually appear much less irritable, she was engaging appropriately with treatment team. She reported improved sleep, less nightmares of past trauma with prazosin. She was more visible in the unit and attended some groups. She continued to denied SI/HI. She minimized her substance use and need for ongoing dual diagnosis treatment. However, she agreed to be referred to OP psychiatric services. There were no incidences of disruptive behaviors nor use of restraints. Collateral information was gathered from mother who denied safety concerns in terms of suicidal or homicidal ideation and agreed that pt was back to baseline or close to. Time Spent with Patient Time attestation: Total time spent providing and/or coordinating discharge services:
[2020-04-24 12:44] LABS: COVID-19 Test Negative (Negative); IDNOW Serial# 9DD0AD1C
== END 2020-04-24 13:34 | disposition home or self-care (01) | DRG 755 ==
LOC: HO.ED 12:59 → HO.PM5 23:46
PROVIDERS: Nurse Practitioner Family; Psychiatry & Neurology Psychiatry; Admitting Provider Psychiatry & Neurology Psychiatry; Emergency Provider Emergency Medicine; Visit Provider Social Worker
DX: F43.10 Post-traumatic stress disorder, unspecified (principal); R45.851 Suicidal ideations; F11.20 Opioid dependence, uncomplicated; F15.10 Other stimulant abuse, uncomplicated; L02.414 Cutaneous abscess of left upper limb; Z91.5 Personal history of self-harm; F17.210 Nicotine dependence, cigarettes, uncomplicated; Z20.822 Contact with and (suspected) exposure to COVID-19; Z71.6 Tobacco abuse counseling; Z79.1 Long term (current) use of non-steroidal anti-inflammatories (NSAID); Z79.899 Other long term (current) drug therapy
CPT/HCPCS: 0241U; 36415; 80048; 80061; 80076; 80307; 80320; 82607; 82746; 83036; 85025; 86704; 86706; 86709; 86803; 87340; 87635; 99285

== ENCOUNTER 2020-05-26 04:51 | Emergency (ER) | payer MEDICAID, SELFPAY ==
[2020-05-26 04:56] VITALS: PULSE 70; RESP 18; TEMP 36.4; O2SAT 100; BMI 33.7
--- NOTE | 2020-05-26 05:16 | ED.PSYCH ---
HPI - Psych General Chief Complaint: Psychiatric Symptoms Stated Complaint: CRISIS,CALM AND COOP PER EMS Time Seen by Provider: 05/26/20 05:10 Source: patient and EMS Mode of arrival: EMS Limitations: no limitations History of Present Illness HPI Narrative: Patient is brought to the emergency room via EMS. Patient states that he feels suicidal, not homicidal. Patient asked several bystanders to call EMS. Patient states that he wants to kill himself by overdosing. Patient states that he used heroin last night. MD complaint: suicidal ideation and feels depressed Related Data Home Medications Medication Instructions Recorded Confirmed albuterol sulfate 180 puff PO Q4-6H PRN 04/15/20 04/15/20 Previous Rx's Medication Instructions Recorded acetaminophen 650 mg PO Q4H PRN 15 Days #30 tab 04/24/20 buprenorphine-naloxone [Suboxone] 2 film BUCCAL DAILY #14 ea 04/24/20 docusate sodium 100 mg PO BID PRN 30 Days #60 cap 04/24/20 famotidine 20 mg PO TID PRN 15 Days #45 tab 04/24/20 ibuprofen 600 mg PO Q8H PRN 15 Days #30 tab 04/24/20 lamotrigine 50 mg PO DAILY 30 Days #60 tab 04/24/20 lamotrigine 100 mg PO BEDTIME 30 Days #30 tab 04/24/20 nicotine 21 mg TRANSDERMAL DAILY 30 Days 04/24/20 #30 ea nicotine (polacrilex) 4 mg BUCCAL Q2H PRN 15 Days #60 ea 04/24/20 prazosin 4 mg PO BEDTIME 15 Days #60 cap 04/24/20 trazodone 50 mg PO BEDTIME PRN 30 Days #30 04/24/20 tab Allergies Allergy/AdvReac Type Severity Reaction Status Date / Time aripiprazole [From ABILIFY] Allergy Unknown UNKNOWN Unverified 11/22/19 19:33 Review of Systems Review of Systems: Constitutional : No Weight loss, No Fever, No Chills, No Night Sweats, No Fatigue, No Malaise ENT/Mouth : No Hearing loss, No Ear Pain, No Nasal Congestion, No Sinus Pain, No Hoarseness, No sore throat, No Rhinorrhea, No Swallowing Difficulty Eyes: No Eye Pain, No Swelling, No Redness, No Foreign Body, No Discharge, No Vision Changes Cardiovascular : No Chest Pain, No SOB, No Dyspnea on Exertion, No Orthopnea, No Edema, No Palpitations Respiratory : No Cough, No Sputum, No Wheezing, No Smoke Exposure, No Dyspnea Gastrointestinal : No Nausea, No Vomiting, No Diarrhea, No Constipation, No abdominal Pain, No Hematochezia, No Melena Genitourinary : no irregular bleeding, No Dysuria, No Urinary Frequency, No Hematuria, No Urinary Incontinence, No Urgency, No Flank Pain, No Urinary Flow Changes, No Hesitancy Musculoskeletal : No joint pain, No Myalgias, No Joint Swelling Skin : Denies having any abscesses Neuro : No Weakness, No Numbness, No Paresthesias, No Loss of Consciousness, No Dizziness, No Headache Psych : Denies hearing voices, complaining of feeling a bit anxious, depressed and suicidal, not homicidal Heme/Lymph: No Bruising, No Bleeding,No Lymphadenopathy Endocrine : No Polyuria, No Polydipsia, No Temperature Intolerance PMFSH Past Medical History Medical History Abscess of left upper extremity ADHD Anxiety Asthma Depression HTN (hypertension) IBS (irritable bowel syndrome) PTSD (post-traumatic stress disorder) Tibial torsion, bilateral Social History Social History Household Members: Family Housing: Apartment Smoking Status: Current every day smoker Packs Per Day: 1 Cigarettes Per Day: 20.0 Second Hand Smoke Exposure: Yes Substance Use Type: IV Drugs and Methamphetamine service: No Physical Exam Vital Signs: Vital Signs: Last Vital Signs Temp 97.5 F 05/26/20 04:56 Pulse 70 05/26/20 04:56 Resp 18 05/26/20 04:56 Pulse Ox 100 05/26/20 04:56 Body Mass Index 33.7 Appearance: Alert. Oriented X3. No acute distress. Disheveled Eyes: Pupils equal, round and reactive to light. ENT: Pharynx normal. Neck: Normal inspection. Neck supple. No lymph nodes noted. No crepitus CVS: Normal heart rate and rhythm. Pulses normal. Normal S1 and S2 Respiratory: No respiratory distress. Breath sounds normal. No Wheezing. No rales Abdomen: Soft and nontender. No rigidity. No distention. Skin: Skin warm and dry. Normal skin color. Normal skin turgor. Extremities: No lower extremity edema. No lower extremity edema. No Lacerations. No Rash Neuro: Oriented X 3. No motor deficit. No sensory deficit. Moving all extermities. No slurred speech. Psych: Calm, cooperative but angry, does not want to talk much, avoids eye contact, normal speech Course Course Course Narrative: Urine drug screen pending, consult to crisis pending as well. Sign-out given to Dr. Keane Discharge Plan Discharge Clinical Impression: Suicidal ideation, Substance abuse Prescriptions: No Action albuterol sulfate 90 mcg 180 puff PO Q4-6H PRN (Reason: Shortness Of Breath Or Wheezing) RF: 0 acetaminophen 325 mg Tablet 650 mg PO Q4H PRN (Reason: Pain, Moderate (Pain Scale 4-6) 15 Days Qty: 30 RF: 0 trazodone 50 mg Tablet 50 mg PO BEDTIME PRN (Reason: Insomnia) 30 Days Qty: 30 RF: 0 nicotine (polacrilex) 2 mg Gum 4 mg buccal Q2H PRN (Reason: Nicotine Cravings) 15 Days Qty: 60 RF: 0 prazosin 1 mg Capsule 4 mg PO BEDTIME 15 Days Qty: 60 RF: 1 lamotrigine 25 mg Tablet 50 mg PO DAILY 30 Days Qty: 60 RF: 0 famotidine 20 mg Tablet 20 mg PO TID PRN (Reason: gerd) 15 Days Qty: 45 RF: 0 nicotine 21 mg/24 hr Patch 24 Hour 21 mg transdermal DAILY 30 Days Qty: 30 RF: 0 docusate sodium 100 mg Capsule 100 mg PO BID PRN (Reason: Constipation) 30 Days Qty: 60 RF: 0 ibuprofen 600 mg Tablet 600 mg PO Q8H PRN (Reason: Pain, Mild (Pain Scale 1-3)) 15 Days Qty: 30 RF: 0 lamotrigine 100 mg Tablet 100 mg PO BEDTIME 30 Days Qty: 30 RF: 0 buprenorphine-naloxone [Suboxone] 8-2 mg film 2 film buccal DAILY Qty: 14 RF: 0
[2020-05-26 05:46] LABS: MANUAL DIFF FLAG NO
[2020-05-26 05:47] LABS: Basophils Percent Auto 0.5 % (0-2); Eosinophils Absolute Auto 0.4 X10*3/uL (0.0-0.4); Hematocrit 35.2 % (42-52); Hemoglobin 11.9 g/dl (14.0-18.0); Imm Gran Abs Auto 0.02 X10*3/uL (0.00-0.03); Imm Gran Pct Auto 0.2 % (0.0-0.4); Mean Corpuscular HGB Conc 33.8 g/dl (31.0-36.0); Mean Corpuscular Hemoglobin 29.3 pg (27.0-33.0); Mean Corpuscular Volume 86.7 fL (80-98); Neutrophils Absolute Auto 4.2 X10*3/uL (2.0-8.3); Neutrophils Percent Auto 48.3 % (45-73); Platelet Count 212 X10*3/uL (160-400); Red Blood Count 4.06 X10*6/uL (4.60-5.80); White Blood Count 8.7 X10*3/uL (4.8-10.8)
--- NOTE | 2020-05-26 05:51 | PC.NURSE ---
Patient wants to be referred to with female pronouns and she identifies as a woman
[2020-05-26 06:11] LABS: Alanine Aminotransferase 94 U/L (0-40); Albumin Level 3.9 g/dL (3.5-5.0); Alkaline Phosphatase 65 U/L (39-117); Anion Gap 13 (12-20); Aspartate Amino Transferase 89 U/L (5-37); Bilirubin Direct 0.4 mg/dL (0.0-0.5); Bilirubin Total 0.7 mg/dL (0.0-1.0); Blood Urea Nitrogen 15 mg/dL (9-16); Calcium 8.2 mg/dL (8.4-10.2); Carbon Dioxide 25 mmol/L (22-29); Chloride 101 mmol/L (96-108); Creatinine Clr Calc Pharmacy 189.6; Estimated Glomerular Filt Rate > 60; Glucose Random 109 mg/dL (60-115); Potassium 3.3 mmol/L (3.3-5.1); Sodium 136 mmol/L (135-145); Total Protein 6.5 g/dL (6.5-8.0)
--- NOTE | 2020-05-26 08:02 | PC.NURSE ---
Pt transferred from main ED to pod. Pt reports he is familiar w/ pod, no concerns reported. Pt awaiting [facility] evaluation.
[2020-05-26 08:06] LABS: COVID-19 Test Negative (Negative)
[2020-05-26 08:16] VITALS: BP 117/70; PULSE 73; RESP 16; TEMP 36.8; O2SAT 97
--- NOTE | 2020-05-26 08:59 | PC.NURSE ---
Pt resting out in common area- pt continues to be drowsy, arousable- encouraged to give urine sample.
[2020-05-26 10:00] VITALS: RESP 18
--- NOTE | 2020-05-26 11:58 | PC.NURSE ---
[facility] called to ask when a clinician might be available to evaluate- spoke w/ Clarissa, who states that a clinician should be available soon. Pt currently resting, resp unlabored.
[2020-05-26 12:00] VITALS: RESP 20
--- NOTE | 2020-05-26 13:02 | PC.NURSE ---
Pt resting in common area, [facility] in to evaluate.
[2020-05-26 14:00] VITALS: RESP 20
--- NOTE | 2020-05-26 14:00 | PC.NURSE ---
Pt seen by N, to be discharged to the waiting room to await N transportation to the Livingroom, pt aware of plan, no concerns reported.
--- NOTE | 2020-05-26 14:05 | PC.NURSE ---
[facility] in to transport pt to the Livingroom. Pt cooperative w/ transfer, no concerns reported.
== END 2020-05-26 14:09 | disposition home or self-care (01) ==
PROVIDERS: Emergency Provider Emergency Medicine
DX: F33.1 Major depressive disorder, recurrent, moderate (principal); R45.851 Suicidal ideations; F11.10 Opioid abuse, uncomplicated; F17.210 Nicotine dependence, cigarettes, uncomplicated; Z71.6 Tobacco abuse counseling; Z20.822 Contact with and (suspected) exposure to COVID-19; Z79.899 Other long term (current) drug therapy
CPT/HCPCS: 36415; 80053; 80076; 82248; 85025; 87635; 99285

== ENCOUNTER 2020-09-16 16:36 | Inpatient (IN) | payer MEDICAID, OTHER, SELFPAY ==
[2020-09-16 16:43] VITALS: BMI 31.5
--- NOTE | 2020-09-16 16:53 | ED_ITS ---
HPI - Overdose General Chief Complaint: Overdose <Guillermo Keane MD - Last Filed: 09/16/20 16:57> Stated Complaint: overdose <Guillermo Keane MD - Last Filed: 09/16/20 16:57> Time Seen by Provider: 09/16/20 16:53 <Guillermo Keane MD - Last Filed: 09/16/20 16:57> Source: patient and EMS <Guillermo Keane MD - Last Filed: 09/16/20 16:57> Mode of arrival: EMS <Guillermo Keane MD - Last Filed: 09/16/20 16:57> Limitations: no limitations <Guillermo Keane MD - Last Filed: 09/16/20 16:57> History of Present Illness HPI Narrative: A 29-year-old male came in by EMS after given Narcan, patient is known homeless, known IV drug abuser, patient confirmed that he used few bags of heroin and also IV injected heroin with cocaine, patient became responsive patient was given Narcan by his friends then patient responded to Narcan. On arrival to the emergency department patient is awake alert with stable vital signs. Patient IV claiming that his suicidal with no specific plan. <Guillermo Keane MD - Last Filed: 09/16/20 16:57> Related Data Home Medications: Home Medications Medication Instructions Recorded Confirmed albuterol sulfate 180 puff PO Q4-6H PRN 04/15/20 05/26/20 Previous Rx's Medication Instructions Recorded acetaminophen 650 mg PO Q4H PRN 15 Days #30 tab 04/24/20 buprenorphine-naloxone [Suboxone] 2 film BUCCAL DAILY #14 ea 04/24/20 docusate sodium 100 mg PO BID PRN 30 Days #60 cap 04/24/20 famotidine 20 mg PO TID PRN 15 Days #45 tab 04/24/20 ibuprofen 600 mg PO Q8H PRN 15 Days #30 tab 04/24/20 lamotrigine 50 mg PO DAILY 30 Days #60 tab 04/24/20 lamotrigine 100 mg PO BEDTIME 30 Days #30 tab 04/24/20 nicotine 21 mg TRANSDERMAL DAILY 30 Days 04/24/20 #30 ea nicotine (polacrilex) 4 mg BUCCAL Q2H PRN 15 Days #60 ea 04/24/20 prazosin 4 mg PO BEDTIME 15 Days #60 cap 04/24/20 trazodone 50 mg PO BEDTIME PRN 30 Days #30 04/24/20 tab <Guillermo Keane MD - Last Filed: 09/16/20 16:57> Allergies/Adverse Reactions: Allergies Allergy/AdvReac Type Severity Reaction Status Date / Time aripiprazole [From [facility]] Allergy Unknown UNKNOWN Unverified 05/26/20 05:24 <Guillermo Keane MD - Last Filed: 09/16/20 16:57> Review of Systems Review of Systems: All other systems are reviewed and are negative Constitutional: Reports as per HPI and Reports no additional constitutional complaints Eyes: Reports as per HPI and Reports no additional eye complaints Reports system reviewed and no additional complaints, except as documented Cardiovascular: Reports as per HPI and Reports no additional cardiovascular complaints Respiratory: Reports as per HPI and Reports no additional respiratory complaints Gastrointestinal: Reports as per HPI and Reports no additional gastrointestinal complaints Genitourinary: Reports no additional female genitourinary complaints Musculoskeletal: Reports no additional musculoskeletal complaints Skin/Breast: Reports system reviewed and no additional complaints, except as docu Psychiatric: Reports no additional psychiatric complaints Endocrine: Reports no additional endocrine complaints Hematologic/Lymphatic: Reports no additional hematologic/lymphatic complaints Allergic/Immunologic: Reports no additional allergic/immunologic complaints Reports system reviewed and no additional complaints, except as documented and Reports Abnormal speech present <Guillermo Keane MD - Last Filed: 09/16/20 16:57> [facility] Past Medical History Medical History: Medical History Abscess of left upper extremity ADHD Anxiety Asthma Depression HTN (hypertension) IBS (irritable bowel syndrome) PTSD (post-traumatic stress disorder) Tibial torsion, bilateral <Guillermo Keane MD - Last Filed: 09/16/20 16:57> Social History Social History: Social History Household Members: Family Housing: Apartment Do you presently have visiting nurse or other home services: No Alcohol intake: current Alcohol intake frequency: a few times a week Patient Tobacco Use Status: Current everyday Tobacco user Cigarette Packs Per Day: 1 Cigarettes Per Day: 20.0 Second Hand Smoke Exposure: Yes Use of substances other than those prescribed or required for medical reasons: Yes Substance Use Type: Crack/Cocaine and Heroin Advance Directives: No Advance Directives Information Provided: No service: No <Guillermo Keane MD - Last Filed: 09/16/20 16:57> Physical Exam Vital Signs: Vital Signs: Last Vital Signs Temp 97.8 F 09/16/20 22:07 Pulse 85 09/16/20 22:07 Resp 20 09/16/20 22:07 BP 127/73 09/16/20 22:07 Pulse Ox 97 09/16/20 22:07 Body Mass Index 31.5 Vital signs have been reviewed as appeared to be correct. Blood pressure normal. Heart rate normal. Respiration rate normal. Temperature normal. Oxygen saturation normal. <Guillermo Keane MD - Last Filed: 09/16/20 16:57> Vital Signs: Last Vital Signs Temp 97.8 F 09/16/20 22:07 Pulse 85 09/16/20 22:07 Resp 20 09/16/20 22:07 BP 127/73 09/16/20 22:07 Pulse Ox 97 09/16/20 22:07 Body Mass Index 31.5 <PRESTON Alonso - Last Filed: 09/17/20 08:40> Appearance: Alert. Oriented X3. No acute distress. Head: Normal external exam. Normocephalic. Atraumatic. No Dahl signs noted. No raccoon eyes noted Eyes: PERRLA. EOMI. Conjunctiva and sclera normal. Eyelids normal. ENT: TM's Normal. Pharynx normal. Uvula midline. Moist mucous membranes. No trismus noted. No drooling noted. No muffled voice noted. Neck: Normal inspection. Neck supple. FROM. No adenopathy. Thyroid Normal. No meningeal signs. No neck mass noted. CVS: Normal heart rate and rhythm. Heart sound normal. No murmurs noted. Pulses normal throughout. Respiratory: No respiratory distress. Painless inspiration. Breath sounds normal. No wheezes/rales/rhonchi noted. Chest nontender. No accessory muscle usage noted or decreased air movement noted. Abdomen: Soft and nontender. Bowel sounds normal in all 4 quadrants. No distention noted. No organomegaly noted. No visible injury noted. Back: No CVA tenderness. Full range of motion noted. Skin: Skin warm and dry. Normal skin color. Normal skin turgor. No rashes/lesions/lacerations noted. Extremities: No lower extremity edema. Extremities exhibit normal range of motion. Extremities nontender. Neuro: Oriented X 3. No motor deficit. No sensory deficit. Reflexes normal. <Guillermo Keane MD - Last Filed: 09/16/20 16:57> Course Course Course Narrative: Physician observation started at 5:00 . Patient placed in physician observation because the patient needed more time for N for evaluation, patient's vital sign were stable, patient is alert and oriented , neuro exam unchanged, unremarkable rest of physical exam. <Guillermo Keane MD - Last Filed: 09/16/20 16:57> Reevaluation(s) Reevaluation #1: 09/17/2020--physician observation continued. Vital signs are stable, patient is resting comfortably, respirations unlabored, pending evaluation by [facility]. <PRESTON Alonso - Last Filed: 09/17/20 08:40> Time: 08:39 <PRESTON Alonso - Last Filed: 09/17/20 08:40> MDM - Overdose Lab Data Labs: Lab Results 09/16/20 09/17/20 Range/Units 18:34 03:13 Urine Opiates Screen POSITIVE H (Not Detect) Ur Barbiturates Screen Not Detected (Not Detect) Ur Phencyclidine Scrn Not Detected (Not Detect) Ur Amphetamines Screen POSITIVE H (Not Detect) U Benzodiazepines Scrn Not Detected (Not Detect) Urine Cocaine Screen POSITIVE H (Not Detect) U Marijuana (THC) Screen POSITIVE H (Not Detect) COVID-19 (LOS) Negative (Negative) COVID-19 Clin Com See Note <Guillermo Keane MD - Last Filed: 09/16/20 16:57> Lab Results 09/16/20 09/17/20 Range/Units 18:34 03:13 Urine Opiates Screen POSITIVE H (Not Detect) Ur Barbiturates Screen Not Detected (Not Detect) Ur Phencyclidine Scrn Not Detected (Not Detect) Ur Amphetamines Screen POSITIVE H (Not Detect) U Benzodiazepines Scrn Not Detected (Not Detect) Urine Cocaine Screen POSITIVE H (Not Detect) U Marijuana (THC) Screen POSITIVE H (Not Detect) COVID-19 (LOS) Negative (Negative) COVID-19 Clin Com See Note <PRESTON Alonso - Last Filed: 09/17/20 08:40> Discharge Plan Discharge Clinical Impression: Drug overdose, Depression <Guillermo Keane MD - Last Filed: 09/16/20 16:57> Prescriptions: No Action albuterol sulfate 90 mcg 180 puff PO Q4-6H PRN (Reason: Shortness Of Breath Or Wheezing) RF: 0 acetaminophen 325 mg Tablet 650 mg PO Q4H PRN (Reason: Pain, Moderate (Pain Scale 4-6) 15 Days Qty: 30 RF: 0 trazodone 50 mg Tablet 50 mg PO BEDTIME PRN (Reason: Insomnia) 30 Days Qty: 30 RF: 0 nicotine (polacrilex) 2 mg Gum 4 mg buccal Q2H PRN (Reason: Nicotine Cravings) 15 Days Qty: 60 RF: 0 prazosin 1 mg Capsule 4 mg PO BEDTIME 15 Days Qty: 60 RF: 1 lamotrigine 25 mg Tablet 50 mg PO DAILY 30 Days Qty: 60 RF: 0 famotidine 20 mg Tablet 20 mg PO TID PRN (Reason: gerd) 15 Days Qty: 45 RF: 0 nicotine 21 mg/24 hr Patch 24 Hour 21 mg transdermal DAILY 30 Days Qty: 30 RF: 0 docusate sodium 100 mg Capsule 100 mg PO BID PRN (Reason: Constipation) 30 Days Qty: 60 RF: 0 ibuprofen 600 mg Tablet 600 mg PO Q8H PRN (Reason: Pain, Mild (Pain Scale 1-3)) 15 Days Qty: 30 RF: 0 lamotrigine 100 mg Tablet 100 mg PO BEDTIME 30 Days Qty: 30 RF: 0 buprenorphine-naloxone [Suboxone] 8-2 mg film 2 film buccal DAILY Qty: 14 RF: 0 <Guillermo Keane MD - Last Filed: 09/16/20 16:57>
[2020-09-16 16:56] VITALS: BP 134/72; PULSE 99; RESP 20; TEMP 36.4; O2SAT 99
[2020-09-16 19:21] LABS: Amphetamine Screen Urine POSITIVE (Not Detect); Barbiturates, Urine Not Detected (Not Detect); Benzodiazepines Screen Urine Not Detected (Not Detect); Cannabinoid Screen Urine POSITIVE (Not Detect); Cocaine Screen Urine POSITIVE (Not Detect); Opiate Screen Urine POSITIVE (Not Detect); Phencyclidine Screen Urine Not Detected (Not Detect)
--- NOTE | 2020-09-16 20:43 | MHC.RECOVSUP ---
Recovery support o Current location: [facility] o Identified substance use concern: OPIOID/COCAINE - Overdose - Withdrawal <del>-</del> <del>Seeking</del> <del>ATS</del> <del>(detox)</del> - Support ? Intervention: <del>o</del> <del>ATS</del> <del>bed</del> <del>search</del> <del>started/completed/in</del> <del>process</del> <del>o</del> <del>MAT</del> <del>started</del> <del>or</del> <del>to</del> <del>be</del> <del>started</del> o Community resources provided o Harm reduction discussion ? Plan: o Referral to [facility] <del>o</del> <del>Bed</del> <del>search</del> <del>in</del> <del>progress</del> <del>to</del> <del>o</del> <del>Follow</del> <del>up</del> <del>tomorrow</del> <del>o</del> <del>Patient</del> <del>awaiting</del> <del>crisis</del> <del>evaluation</del> o Patient to follow up with H after discharge ? Additional information: I was able to speak briefly with pt and he stated that he has been experiencing homelessness for more than a year. pt has been on MAT in the past but is not currently on MAT. pt also stated that he does have a hx of mental health. pt was not seeking to go into ATS and so I was able to provide him with recovery resources.
[2020-09-16 22:07] VITALS: BP 127/73; PULSE 85; RESP 20; TEMP 36.6; O2SAT 97
--- NOTE | 2020-09-17 03:04 | ECG_ITS ---
Test Reason : ETOH Blood Pressure : / mmHG Vent. Rate : 080 BPM Atrial Rate : 080 BPM P-R Int : 148 ms QRS Dur : 094 ms QT Int : 386 ms P-R-T Axes : 045 019 041 degrees QTc Int : 445 ms Normal sinus rhythm Normal ECG No previous ECGs available Referred By: Guillermo Keane Electronically Signed By:Tim Bell
[2020-09-17 03:35] LABS: COVID-19 Test Negative (Negative); IDNOW Serial# 9DD0AD1C
--- NOTE | 2020-09-17 07:15 | PC.NURSE ---
Patient is in bed asleep in no distress under 1:1 observation. Respirations are even and nonlabored
--- NOTE | 2020-09-17 07:28 | PC.NURSE ---
[facility] CALLED, CONFIRMED THAT PT IS ON THE LIST FOR CONSULT. PT HAS BEEN SLEEPING ALL NIGHT, COOPERATIVE WHILE AWAKE. NO SIGNS OR SYMPTOMS OF WITHDRAWAL.
--- NOTE | 2020-09-17 07:55 | PC.NURSE ---
MIKE callled to say someone would be in to see patient later this morning
[2020-09-17 08:46] VITALS: BP 132/60; PULSE 65; RESP 19; TEMP 36.8; O2SAT 99
--- NOTE | 2020-09-17 09:41 | PC.NURSE ---
Patient is lying in bed resting quietly in no distress
--- NOTE | 2020-09-17 10:52 | PC.NURSE ---
report taken from jasbir rn pt ambulated w this rn over to pod, calm and cooperative, pleasant w this rn. awaiting to meet w care team. javier.
--- NOTE | 2020-09-17 12:35 | MHC.CARE ---
Patient evaluated by the CARE Team to need inpatient psychiatric treatment, will remain in the ED until a placement is secured. Provider updated
--- NOTE | 2020-09-17 16:36 | PC.NURSE ---
Pt resting comfortably in bed at current, no complaints at this time, in behavioral control.
[2020-09-17 19:45] VITALS: BP 140/77; PULSE 97; TEMP 36.6; O2SAT 99
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
[2020-09-18 06:41] VITALS: BP 121/71; PULSE 61; TEMP 36.1; O2SAT 98
[2020-09-18 13:55] VITALS: BP 148/84; PULSE 94; PULSE 95
[2020-09-18] MEDS: Gabapentin 400 MG CAPSULE PO ×2 (14:47→21:30)
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
[2020-09-18 16:00] VITALS: PULSE 73
--- NOTE | 2020-09-18 16:00 | MHC.RECOVRN ---
T/w met with pt in 515 after consult placed to Addiction Medicine for pt to possibly restart MOUD. Pt reports being prescribed Suboxone through [facility] in [place] for a few years. Last dose approximately 2 weeks ago. Pt reports being prescribed two 8 mg films, taken together daily. Per [facility], pt has had two Sublocade prescriptions filled within the last two months. Pt reports not receiving them due to missing the appointments. Pt has been using heroin, IV, 1 bundle daily. Pt also reports using cocaine, IV. Last use 09/16. Pt reports hot/cold, body aches, difficulty sitting still but is able to, upset stomach. Pt not yawning, slightly irritable. Pt educated regarding precipitated withdrawal, pt understands and feels ready to start Suboxone. Case discussed with Laisha Huff APRN.
[2020-09-18] MEDS: Buprenorphine/Naloxone 2/0.5mg FILM 1 FILM SUBLINGUAL (16:15)
[2020-09-18] MEDS: Buprenorphine/Naloxone 4/1 mg FILM 1 FILM SUBLINGUAL ×2 (17:15→21:29)
[2020-09-18 21:15] VITALS: BP 130/65; PULSE 73; TEMP 36.3; O2SAT 97
[2020-09-18 21:30] VITALS: BP 130/65; PULSE 73
[2020-09-18] MEDS: lamoTRIgine 25 MG TABLET PO (21:30)
[2020-09-18] MEDS: Prazosin HCL 1 MG CAPSULE 2 MG PO (21:30)
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
[2020-09-19 06:00] VITALS: BP 118/68; PULSE 60; RESP 16; TEMP 36; O2SAT 95
[2020-09-19 08:00] VITALS: BP 118/68; PULSE 60; RESP 16; TEMP 36; O2SAT 95
[2020-09-19] MEDS: Buprenorphine/Naloxone 8/2 mg FILM 1 FILM SUBLINGUAL ×2 (08:25→20:41)
[2020-09-19] MEDS: Nicotine 21 MG PATCH.TD24 TRANSDERMA (08:25)
[2020-09-19] MEDS: Gabapentin 400 MG CAPSULE PO ×3 (08:25→20:41)
[2020-09-19 08:41] LABS: MANUAL DIFF FLAG NO
[2020-09-19 08:44] LABS: Basophils Absolute Auto 0.1 X10*3/uL (0.0-0.2); Basophils Percent Auto 0.9 % (0-2); Eosinophils Absolute Auto 0.3 X10*3/uL (0.0-0.4); Eosinophils Percent Auto 4.2 % (0-4); Hematocrit 39.9 % (42-52); Hemoglobin 12.8 g/dl (14.0-18.0); Imm Gran Abs Auto 0.01 X10*3/uL (0.00-0.03); Imm Gran Pct Auto 0.1 % (0.0-0.4); Lymphocytes Absolute Auto 2.5 X10*3/uL (1.2-4.9); Lymphocytes Percent Auto 37.7 % (20-40); Mean Corpuscular HGB Conc 32.1 g/dl (31.0-36.0); Mean Corpuscular Hemoglobin 29.5 pg (27.0-33.0); Mean Corpuscular Volume 91.9 fL (80-98); Mean Platelet Volume 9.6 fL (9.4-12.4); Monocytes Absolute Auto 0.5 X10*3/uL (0.1-1.2); Monocytes Percent Auto 7.6 % (2-11); Neutrophils Absolute Auto 3.3 X10*3/uL (2.0-8.3); Neutrophils Percent Auto 49.5 % (45-73); Platelet Count 308 X10*3/uL (160-400); Red Blood Count 4.34 X10*6/uL (4.60-5.80); White Blood Count 6.7 X10*3/uL (4.8-10.8)
[2020-09-19 09:07] LABS: Estimated Average Glucose 94 mg/dL; Hemoglobin A1c % 4.9 %
[2020-09-19 09:12] LABS: Alanine Aminotransferase 117 U/L (0-40); Albumin Level 3.8 g/dL (3.5-5.0); Alkaline Phosphatase 56 U/L (39-117); Anion Gap 11 (12-20); Aspartate Amino Transferase 64 U/L (5-37); Bilirubin Total 0.3 mg/dL (0.0-1.0); Blood Urea Nitrogen 13 mg/dL (9-16); Calcium 9.2 mg/dL (8.4-10.2); Carbon Dioxide 32 mmol/L (22-29); Chloride 106 mmol/L (96-108); Cholesterol 153 mg/dL; Creatinine Clr Calc Pharmacy 166.7; Estimated Glomerular Filt Rate > 60; Glucose Random 91 mg/dL (60-115); HDL Cholesterol 47 mg/dL; Iron 31 mcg/dL (45-160); LDL Cholesterol Calculated 91 mg/dl; Percent Iron Saturation 9 % (15-50); Potassium 4.8 mmol/L (3.3-5.1); Sodium 144 mmol/L (135-145); Total Iron Binding Capacity 359 mcg/dL (228-428); Total Protein 6.7 g/dL (6.5-8.0); Triglycerides 78 mg/dL; Unsaturated Iron Binding 328 ug/dL
[2020-09-19 09:27] LABS: HIV AB/AG Nonreactive (Nonreactive); HIV Num 1 0.09 S/CO (0.00-0.99)
[2020-09-19 09:30] LABS: Vitamin D 25-OH Total 27.4 ng/mL (>30)
[2020-09-19 09:35] LABS: Syphilis Screen Nonreactive (Nonreactive)
[2020-09-19 09:43] LABS: Folate 11.3 ng/mL (> or = 4.0); Vitamin B12 429 pg/mL (200-900)
[2020-09-19] MEDS: Nicotine Polacrilex 2 MG GUM BUCCAL ×2 (10:49→13:16)
--- NOTE | 2020-09-19 11:06 | MHC.RECOVRN ---
T/w met with pt to f/u after restarting Suboxone. Pt received a total of 10 mg on 09/18. Pt scheduled to receive 8/2mg BID starting today. Pt reports Suboxone is helping, denies withdrawal symptoms. Pt agreeable to BID scheduling. T/w available as needed. Case discussed with Christine Nowak NP.
[2020-09-19] MEDS: hydrOXYzine HCL 50 MG TABLET PO (13:16)
[2020-09-19 16:00] VITALS: BP 142/75; PULSE 76; RESP 14; TEMP 36.7; O2SAT 99
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
[2020-09-19 16:57] VITALS: BP 142/75; PULSE 76; RESP 14; TEMP 36.7; O2SAT 99
[2020-09-19] MEDS: Nicotine Polacrilex 2 MG GUM 4 MG BUCCAL (18:43)
[2020-09-19 20:00] VITALS: BP 138/73; PULSE 78; RESP 14; O2SAT 99
[2020-09-19 20:41] VITALS: BP 116/53; PULSE 76
[2020-09-19] MEDS: lamoTRIgine 25 MG TABLET PO (20:41)
[2020-09-19] MEDS: Prazosin HCL 1 MG CAPSULE 4 MG PO (20:41)
[2020-09-20 06:00] VITALS: BP 127/69; PULSE 70; RESP 16; TEMP 36.4; O2SAT 95
[2020-09-20 08:00] VITALS: PULSE 70
[2020-09-20] MEDS: Gabapentin 400 MG CAPSULE PO ×3 (09:31→20:25)
[2020-09-20] MEDS: Nicotine 21 MG PATCH.TD24 TRANSDERMA (09:31)
[2020-09-20] MEDS: Buprenorphine/Naloxone 8/2 mg FILM 1 FILM SUBLINGUAL ×2 (09:31→20:26)
[2020-09-20] MEDS: hydrOXYzine HCL 50 MG TABLET PO ×2 (11:02→20:25)
[2020-09-20] MEDS: Nicotine Polacrilex 2 MG GUM 4 MG BUCCAL ×3 (11:02→18:45)
[2020-09-20 18:00] VITALS: BP 178/80; PULSE 93
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
[2020-09-20] MEDS: lamoTRIgine 25 MG TABLET PO (20:25)
[2020-09-20 20:26] VITALS: BP 140/78; PULSE 104
[2020-09-20] MEDS: Prazosin HCL 1 MG CAPSULE 4 MG PO (20:26)
[2020-09-21 06:00] VITALS: BP 103/54; PULSE 67; RESP 16; TEMP 36.4; O2SAT 98
[2020-09-21] MEDS: Gabapentin 400 MG CAPSULE PO ×3 (07:58→20:07)
[2020-09-21] MEDS: Buprenorphine/Naloxone 8/2 mg FILM 1 FILM SUBLINGUAL ×2 (07:58→20:08)
[2020-09-21] MEDS: Nicotine 21 MG PATCH.TD24 TRANSDERMA (07:58)
[2020-09-21 08:00] VITALS: PULSE 67
--- NOTE | 2020-09-21 12:05 | MHC.RECOVSUP ---
Recovery Support note: This show card writer met with patient to discuss recovery and to see how she is doing with the Suboxone as prescribed. Patient reports that the Suboxone is helpful and that she does not have any issues with it. Patient reports previously getting Suboxone through [facility] in [place] however expressed interest in getting connected with a clinic in [place]. This show card writer discussed the CCC with patient and informed her that an appointment will be made prior to discharge. Patient reports no questions regarding this at time of consult. Patient reports nightmares last night and that she is currently trying to rest. Discussed nightmares and coping skills with patient. Encouraged patient to reach out to staff for support as needed.
[2020-09-21] MEDS: hydrOXYzine HCL 50 MG TABLET PO ×2 (13:05→20:07)
[2020-09-21] MEDS: Nicotine Polacrilex 2 MG GUM 4 MG BUCCAL ×3 (13:05→19:07)
[2020-09-21 14:20] VITALS: BP 137/69; PULSE 96; RESP 16; TEMP 36.6; O2SAT 98
[2020-09-21 16:00] VITALS: BP 143/77; PULSE 96; TEMP 37; O2SAT 97
--- NOTE | 2020-09-21 18:10 | P.PNPSI_ITS ---
Subjective Subjective Date of Service: 09/21/20 Reason For Visit: overdose Interim History: Visited with family. Agreeable to a room change (will continue in a private room). More interactive with peers, especially during the evening time but with evidenced anxious sx Medication Compliance: Yes Side effects from medications: No Attending Groups: Intermittent Review of Systems Psychiatric: Reports anxiety, Reports depression, Reports irritability and Reports mood swings Mental Status Exam Mental Status Exam Patient Appearance: Appropriate Patient Orientation: Person, Place, Time and Situation Level of Consciousness: Alert Patient Behavior: Talkative Mood Description: Anxious and Apprehensive Affect Description: Anxious and Apprehensive Patient Cognition Impaired: No Ability to Follow Directions: Good Speech Pattern: Spontaneous Speech Memory Description: Episodic Impaired Hallucinations: None Delusions: Not Present Thought Process: Intact Thought Content: positive for [place] and positive for Circumstantial Depressive Symptoms: Increased Anxiety, Increased Irritability and Low Self Es teem Judgement: Fair Diagnostics Vital Signs (24Hr): Vital Signs - 24 hr 09/20/20 20:26 09/21/20 06:00 09/21/20 14:20 Temperature 97.5 F 97.9 F Pulse Rate 104 H 67 96 Respiratory Rate 16 16 Blood Pressure 140/78 H 103/54 L 137/69 Pulse Oximetry 98 98 Body Mass Index 31.5 Labs Results: 09/19/20 08:29 09/19/20 08:29 Medications Medications Current Medications Generic Name Dose Route Start Last Admin Trade Name Freq PRN Reason Stop Dose Admin Acetaminophen 650 mg 09/17/20 18:24 Acetaminophen 325 Mg Tablet PO Q6H PRN Headache/Pain Mild Scale (1-3) Al Hydroxide/Mg Hydroxide 30 ml 09/17/20 18:24 Magnesium Hydrox/Alum Hydrox 30 Ml Oral.Susp PO Q6H PRN Heartburn/Nausea Albuterol Sulfate 1 puff 09/18/20 11:56 Albuterol Sulfate 90 Mcg 8 Gm Inhaler INHALE RQ6H PRN Wheezing Buprenorphine/Naloxone 1 film 09/19/20 09:00 09/21/20 07:58 Buprenorphine/Naloxone 8/2 Mg Film SUBLINGUAL 1 film BID ANGELES Administration Clonidine HCl 0.1 mg 09/17/20 20:15 Clonidine Hcl 0.1 Mg Tablet PO Q6H PRN Opiate Withdrawal Protocol Docusate Sodium 100 mg 09/18/20 11:59 Docusate Sodium 100 Mg Capsule PO BID PRN Constipation Famotidine 20 mg 09/18/20 11:58 Famotidine 20 Mg Tablet PO BID PRN GERD Gabapentin 400 mg 09/18/20 15:00 09/21/20 14:16 Gabapentin 400 Mg Capsule PO 400 mg TID ANGELES Administration Hydroxyzine HCl 50 mg 09/18/20 11:54 09/21/20 13:05 Hydroxyzine Hcl 50 Mg Tablet PO 50 mg Q6H PRN Administration Anxiety Ibuprofen 600 mg 09/18/20 12:00 Ibuprofen 600 Mg Tablet PO Q8H PRN Pain, Mild (Pain Scale 1-3) Lamotrigine 25 mg 09/18/20 21:00 09/20/20 20:25 Lamotrigine 25 Mg Tablet PO 25 mg BEDTIME ANGELES Administration Lorazepam 1 mg 09/18/20 12:02 Lorazepam 1 Mg Tablet PO Q4H PRN agitation Magnesium Hydroxide 30 ml 09/17/20 18:24 Milk Of Magnesia 30 Ml Oral.Susp PO DAILY PRN Constipation Nicotine 21 mg 09/18/20 11:00 09/21/20 07:58 Nicotine 21 Mg Patch.Td24 TRANSDERMA 21 mg DAILY ANGELES Administration Nicotine Polacrilex 4 mg 09/19/20 16:43 09/21/20 16:10 Nicotine Polacrilex 2 Mg Gum BUCCAL 4 mg Q2H PRN Administration Nicotine Cravings Non-Formulary Medication 30 mg 09/20/20 09:00 Vyvanse PO DAILY ANGELES Olanzapine 5 mg 09/18/20 12:01 Olanzapine 5 Mg Tablet PO Q4H PRN agitation Ondansetron HCl 4 mg 09/17/20 20:16 Ondansetron Odt 4 Mg Tab.Rapdis TRANSLINGU Q6H PRN Nausea Pharmacy Consult 1 each 09/17/20 16:27 Consult Rx Perform Med Rec MISCELLANE ONCE PRN Consult order Prazosin HCl 4 mg 09/19/20 21:00 09/20/20 20:26 Prazosin Hcl 1 Mg Capsule PO 4 mg BEDTIME ANGELES Administration Protocol Trazodone HCl 50 mg 09/17/20 18:24 Trazodone Hcl 50 Mg Tablet PO BEDTIME PRN Insomnia Allergies Allergies Allergy/AdvReac Type Severity Reaction Status Date / Time aripiprazole [From [facility]] Allergy Unknown UNKNOWN Unverified 05/26/20 05:24 Assessment & Plan Assessment & Plan (1) Opioid use disorder, severe, dependence: Status: Acute Code(s): F11.20 - Opioid dependence, uncomplicated Assessment and Plan: * suboxone 2mg given with no effect * additional 4mg ordered at dinner then another 4mg at HS (total of 10mg) * ordered 8mg BID for the morning. * Recovery support RN will follow up in AM (2) ADHD: Status: Acute Code(s): F90.9 - Attention-deficit hyperactivity disorder, unspecified type Assessment and Plan: By recent history pt has done well with Vyvanse 40 mg, 30 mg requested to re- start regime (3) PTSD (post-traumatic stress disorder): Status: Acute Code(s): F43.10 - Post-traumatic stress disorder, unspecified Assessment and Plan: 29 yo transgender male to female, with preference for female pronouns reports OD of cocaine and heroin in the community requiring Narcan with resulting reports of SI. Several stressors including inability to see 9 yo son who was adopted by pt's sister, boyfriend who is missing (came to ER before patient for treatment and has not been heard from), homelessness, need to re-establish Suboxone treatment and upcoming pre trial for possession of mushrooms. 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 (5) Cannabis use disorder, moderate, dependence: Status: Acute Code(s): F12.20 - Cannabis dependence, uncomplicated (6) Psychoactive substance-induced mood disorder: Status: Acute Code(s): F19.94 - Other psychoactive substance use, unspecified with psychoactive substance-induced mood disorder Greater than 50% of the session was spent on counseling and/or coordination of care Reason for contiued inpatient stay Substantial Risk for: harm to self, harm to others, inability to function and rapid decompensation
[2020-09-21 20:06] VITALS: BP 140/73; PULSE 95
[2020-09-21] MEDS: Prazosin HCL 1 MG CAPSULE 4 MG PO (20:06)
[2020-09-21] MEDS: lamoTRIgine 25 MG TABLET PO (20:07)
[2020-09-22 06:00] VITALS: BP 117/77; PULSE 86; RESP 16; TEMP 36.9; O2SAT 98
[2020-09-22 08:00] VITALS: BP 144/80; PULSE 99; RESP 18; TEMP 36.6
[2020-09-22] MEDS: Gabapentin 400 MG CAPSULE PO ×3 (08:21→20:45)
[2020-09-22] MEDS: Buprenorphine/Naloxone 8/2 mg FILM 1 FILM SUBLINGUAL ×2 (08:21→20:48)
[2020-09-22] MEDS: Nicotine Polacrilex 2 MG GUM 4 MG BUCCAL ×3 (12:30→18:45)
--- NOTE | 2020-09-22 12:51 | P.PNPSI_ITS ---
Subjective Subjective Date of Service: 09/22/20 Reason For Visit: overdose Interim History: pt reports feeling a bit depressed and more anxious today due to tenuous housing situation. he states he needs to make a lot of calls today, and that is always stressful for him. something about the effort and interaction with others. he has no other complaints. he does request that his hydroxyzine PRN dosing be increased from 50 mg each to 100 mg each, as the 50 mg dose does not touch him. MD agrees to the change. per staff, attending groups, euphoric. 0/10 depression and 3/10 anxiety last night. slept poorly. c/o restlessness. Mental Status Exam Mental Status Exam Narrative: low light in room. appropriately dressed and groomed as far as could be ascertained. no PMA/PMR. cooperative with interview. speech nml in amount, rate, loudness, tone, latency. thoughts linear and logical. affect constricted. no SI/HI/AVH expressed. Diagnostics Vital Signs (24Hr): Vital Signs - 24 hr 09/21/20 14:20 09/21/20 16:00 09/21/20 20:06 Temperature 97.9 F 98.6 F Pulse Rate 96 96 95 Respiratory Rate 16 Blood Pressure 137/69 143/77 H 140/73 H Pulse Oximetry 98 97 09/22/20 06:00 Temperature 98.4 F Pulse Rate 86 Respiratory Rate 16 Blood Pressure 117/77 Pulse Oximetry 98 Body Mass Index 31.5 Labs Results: 09/19/20 08:29 09/19/20 08:29 Medications Medications Current Medications Generic Name Dose Route Start Last Admin Trade Name Kolbyq PRN Reason Stop Dose Admin Acetaminophen 650 mg 09/17/20 18:24 Acetaminophen 325 Mg Tablet PO Q6H PRN Headache/Pain Mild Scale (1-3) Al Hydroxide/Mg Hydroxide 30 ml 09/17/20 18:24 Magnesium Hydrox/Alum Hydrox 30 Ml Oral.Susp PO Q6H PRN Heartburn/Nausea Albuterol Sulfate 1 puff 09/18/20 11:56 Albuterol Sulfate 90 Mcg 8 Gm Inhaler INHALE RQ6H PRN Wheezing Buprenorphine/Naloxone 1 film 09/19/20 09:00 09/22/20 08:21 Buprenorphine/Naloxone 8/2 Mg Film SUBLINGUAL 1 film BID ANGELES Administration Clonidine HCl 0.1 mg 09/17/20 20:15 Clonidine Hcl 0.1 Mg Tablet PO Q6H PRN Opiate Withdrawal Protocol Docusate Sodium 100 mg 09/18/20 11:59 Docusate Sodium 100 Mg Capsule PO BID PRN Constipation Famotidine 20 mg 09/18/20 11:58 Famotidine 20 Mg Tablet PO BID PRN GERD Gabapentin 400 mg 09/18/20 15:00 09/22/20 08:21 Gabapentin 400 Mg Capsule PO 400 mg TID ANGELES Administration Hydroxyzine HCl 100 mg 09/22/20 12:50 Hydroxyzine Hcl 50 Mg Tablet PO Q6H PRN Anxiety Ibuprofen 600 mg 09/18/20 12:00 Ibuprofen 600 Mg Tablet PO Q8H PRN Pain, Mild (Pain Scale 1-3) Lamotrigine 25 mg 09/18/20 21:00 09/21/20 20:07 Lamotrigine 25 Mg Tablet PO 25 mg BEDTIME ANGELES Administration Lorazepam 1 mg 09/18/20 12:02 Lorazepam 1 Mg Tablet PO Q4H PRN agitation Magnesium Hydroxide 30 ml 09/17/20 18:24 Milk Of Magnesia 30 Ml Oral.Susp PO DAILY PRN Constipation Nicotine 21 mg 09/18/20 11:00 09/21/20 07:58 Nicotine 21 Mg Patch.Td24 TRANSDERMA 21 mg DAILY ANGELES Administration Nicotine Polacrilex 4 mg 09/19/20 16:43 09/22/20 12:30 Nicotine Polacrilex 2 Mg Gum BUCCAL 4 mg Q2H PRN Administration Nicotine Cravings Non-Formulary Medication 30 mg 09/20/20 09:00 Vyvanse PO DAILY ANGELES Olanzapine 5 mg 09/18/20 12:01 Olanzapine 5 Mg Tablet PO Q4H PRN agitation Ondansetron HCl 4 mg 09/17/20 20:16 Ondansetron Odt 4 Mg Tab.Rapdis TRANSLINGU Q6H PRN Nausea Pharmacy Consult 1 each 09/17/20 16:27 Consult Rx Perform Med Rec MISCELLANE ONCE PRN Consult order Prazosin HCl 4 mg 09/19/20 21:00 09/21/20 20:06 Prazosin Hcl 1 Mg Capsule PO 4 mg BEDTIME ANGELES Administration Protocol Trazodone HCl 50 mg 09/17/20 18:24 Trazodone Hcl 50 Mg Tablet PO BEDTIME PRN Insomnia Allergies Allergies Allergy/AdvReac Type Severity Reaction Status Date / Time aripiprazole [From [facility]] Allergy Unknown UNKNOWN Unverified 05/26/20 05:24 Assessment & Plan Assessment & Plan (1) Opioid use disorder, severe, dependence: Status: Acute Code(s): F11.20 - Opioid dependence, uncomplicated Assessment and Plan: * suboxone 2mg given with no effect * additional 4mg ordered at dinner then another 4mg at HS (total of 10mg) * ordered 8mg BID for the morning. * Recovery support RN will follow up in AM (2) ADHD: Status: Acute Code(s): F90.9 - Attention-deficit hyperactivity disorder, unspecified type Assessment and Plan: By recent history pt has done well with Vyvanse 40 mg, 30 mg requested to re- start regime (3) PTSD (post-traumatic stress disorder): Status: Acute Code(s): F43.10 - Post-traumatic stress disorder, unspecified Assessment and Plan: 29 yo transgender male to female, with preference for female pronouns reports OD of cocaine and heroin in the community requiring Narcan with resulting reports of SI. Several stressors including inability to see 9 yo son who was adopted by pt's sister, boyfriend who is missing (came to ER before patient for treatment and has not been heard from), homelessness, need to re-establish Suboxone treatment and upcoming pre trial for possession of mushrooms. 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 (5) Cannabis use disorder, moderate, dependence: Status: Acute Code(s): F12.20 - Cannabis dependence, uncomplicated (6) Psychoactive substance-induced mood disorder: Status: Acute Code(s): F19.94 - Other psychoactive substance use, unspecified with psychoactive substance-induced mood disorder Greater than 50% of the session was spent on counseling and/or coordination of care Reason for contiued inpatient stay Substantial Risk for: harm to self, inability to function and rapid decompensation
[2020-09-22] MEDS: Nicotine 21 MG PATCH.TD24 TRANSDERMA (13:29)
--- NOTE | 2020-09-22 16:22 | MHC.CLN ---
NUTRITION CONSULT PATIENT REPORTED 30# WEIGHT LOSS OVER 3 WEEKS. STATED THAT [place]IVING [place] [address] . REPORTS THAT IS EATING WELL HERE AND GAINING BACK SOME WEIGHT. NO NEW NUTRITION INTERVENTIONS.
[2020-09-22 20:40] VITALS: BP 135/73; PULSE 91; TEMP 36.1
[2020-09-22 20:45] VITALS: PULSE 91
[2020-09-22] MEDS: lamoTRIgine 25 MG TABLET PO (20:45)
[2020-09-22 20:46] VITALS: BP 135/73; PULSE 91
[2020-09-22] MEDS: Prazosin HCL 1 MG CAPSULE 4 MG PO (20:46)
[2020-09-22] MEDS: hydrOXYzine HCL 50 MG TABLET 100 MG PO (20:52)
[2020-09-23 06:51] VITALS: BP 104/57; PULSE 89; RESP 14; TEMP 36.8; O2SAT 94
[2020-09-23] MEDS: Buprenorphine/Naloxone 8/2 mg FILM 1 FILM SUBLINGUAL ×2 (08:19→20:01)
[2020-09-23] MEDS: Gabapentin 400 MG CAPSULE PO ×3 (08:19→20:02)
[2020-09-23] MEDS: Nicotine 21 MG PATCH.TD24 TRANSDERMA (12:39)
[2020-09-23] MEDS: Nicotine Polacrilex 2 MG GUM 4 MG BUCCAL ×2 (12:42→19:06)
[2020-09-23 14:19] VITALS: BP 119/56; PULSE 87; RESP 16
[2020-09-23 16:00] VITALS: PULSE 95
[2020-09-23 16:48] VITALS: BP 108/54; PULSE 84; TEMP 36.3
--- NOTE | 2020-09-23 17:33 | P.PNPSI_ITS ---
Subjective Subjective Date of Service: 09/23/20 Reason For Visit: overdose Subjective Notes: Conditional Voluntary Healthcare Proxy: No Guardianship: No Medical Problems Affecting Mental Status: No Interim History: Max reports ongoing nightmares. Discussed adding another agent prn at hs and he agreed. [place] not approved for [place] [facility] [place]Adderall 10 mg bid ordered. By history pt approved for Vyvanse as an out patient-will file needed paperwork on discharge. Lamictal titrated to 50 mg HS. Medication Compliance: Yes Side effects from medications: No Attending Groups: Yes Review of Systems Reports behavioral changes Psychiatric: Reports anxiety, Reports behavioral changes, Reports depression, Reports difficulty concentrating, Reports hopelessness, Reports irritability, Reports anhedonia, Reports mood swings, Reports panic attacks, Reports paranoia and Reports suicidal ideation Mental Status Exam Mental Status Exam Patient Appearance: Fatigued and Appropriate Patient Orientation: Person, Place, Time and Situation Level of Consciousness: Awake and Alert Patient Behavior: Guarded, Talkative, Cooperative, Anxious, Fearful, Invasion - Personal Space, Fatigued, Distractible, Isolative and Good Eye Contact Mood Description: Labile Affect Description: Labile Patient Cognition Impaired: No Ability to Follow Directions: Good Speech Pattern: Clear, Perseverating, Appropriate, Spontaneous Speech, Coherent and Soft-Spoken Memory Description: Intact and Episodic Impaired Hallucinations: None Delusions: Not Present Perceptual Disturbances: Depersonalization and Derealization Thought Process: Intact, Racing, Distracted, Rumination and Goal Oriented Thought Content: positive for Racing, positive for Circumstantial and positive for Suicidal Ideation Depressive Symptoms: Increased Anxiety, Diff. Making Decisions, Increased Irritability, Loss of Int. in Activity, Feelings of Worthlessness, Hopelessness, Feelings of Guilt, Unhappiness, Increased Fatigue, Low Self Esteem, Loss of Energy and Difficulty Concentrating Judgement: Fair Diagnostics Vital Signs (24Hr): Vital Signs - 24 hr 09/22/20 20:40 09/22/20 20:46 09/23/20 06:51 Temperature 96.9 F 98.2 F Pulse Rate 91 91 89 Respiratory Rate 14 Blood Pressure 135/73 135/73 104/57 L Pulse Oximetry 94 09/23/20 14:19 09/23/20 16:48 Temperature 97.3 F Pulse Rate 87 84 Respiratory Rate 16 Blood Pressure 119/56 L 108/54 L Pulse Oximetry Body Mass Index 31.5 Labs Results: 09/19/20 08:29 09/19/20 08:29 Medications Medications Current Medications Generic Name Dose Route Start Last Admin Trade Name Freq PRN Reason Stop Dose Admin Acetaminophen 650 mg 09/17/20 18:24 Acetaminophen 325 Mg Tablet PO Q6H PRN Headache/Pain Mild Scale (1-3) Al Hydroxide/Mg Hydroxide 30 ml 09/17/20 18:24 Magnesium Hydrox/Alum Hydrox 30 Ml Oral.Susp PO Q6H PRN Heartburn/Nausea Albuterol Sulfate 1 puff 09/18/20 11:56 Albuterol Sulfate 90 Mcg 8 Gm Inhaler INHALE RQ6H PRN Wheezing Amphetamine/Dextroamphetamine 10 mg 09/24/20 08:00 Amphetamine Mixed Salts 10 Mg Tablet PO BID@0800,1700 ANGELES Buprenorphine/Naloxone 1 film 09/19/20 09:00 09/23/20 08:19 Buprenorphine/Naloxone 8/2 Mg Film SUBLINGUAL 1 film BID ANGELES Administration Clonidine HCl 0.1 mg 09/17/20 20:15 Clonidine Hcl 0.1 Mg Tablet PO Q6H PRN Opiate Withdrawal Protocol Docusate Sodium 100 mg 09/18/20 11:59 Docusate Sodium 100 Mg Capsule PO BID PRN Constipation Famotidine 20 mg 09/18/20 11:58 Famotidine 20 Mg Tablet PO BID PRN GERD Gabapentin 400 mg 09/18/20 15:00 09/23/20 14:12 Gabapentin 400 Mg Capsule PO 400 mg TID ANGELES Administration Hydroxyzine HCl 100 mg 09/22/20 12:50 09/22/20 20:52 Hydroxyzine Hcl 50 Mg Tablet PO 100 mg Q6H PRN Administration Anxiety Ibuprofen 600 mg 09/18/20 12:00 Ibuprofen 600 Mg Tablet PO Q8H PRN Pain, Mild (Pain Scale 1-3) Lamotrigine 50 mg 09/23/20 21:00 Lamotrigine 25 Mg Tablet PO BEDTIME ANGELES Lorazepam 1 mg 09/18/20 12:02 Lorazepam 1 Mg Tablet PO Q4H PRN agitation Magnesium Hydroxide 30 ml 09/17/20 18:24 Milk Of Magnesia 30 Ml Oral.Susp PO DAILY PRN Constipation Nicotine 21 mg 09/18/20 11:00 09/23/20 12:39 Nicotine 21 Mg Patch.Td24 TRANSDERMA 21 mg DAILY ANGELES Administration Nicotine Polacrilex 4 mg 09/19/20 16:43 09/23/20 12:42 Nicotine Polacrilex 2 Mg Gum BUCCAL 4 mg Q2H PRN Administration Nicotine Cravings Olanzapine 5 mg 09/18/20 12:01 Olanzapine 5 Mg Tablet PO Q4H PRN agitation Ondansetron HCl 4 mg 09/17/20 20:16 Ondansetron Odt 4 Mg Tab.Rapdis TRANSLINGU Q6H PRN Nausea Pharmacy Consult 1 each 09/17/20 16:27 Consult Rx Perform Med Rec MISCELLANE ONCE PRN Consult order Prazosin HCl 4 mg 09/19/20 21:00 09/22/20 20:46 Prazosin Hcl 1 Mg Capsule PO 4 mg BEDTIME ANGELES Administration Protocol Quetiapine Fumarate 50 mg 09/23/20 17:32 Quetiapine Fumarate 50 Mg Tablet PO BEDTIME PRN nightmares Trazodone HCl 50 mg 09/17/20 18:24 Trazodone Hcl 50 Mg Tablet PO BEDTIME PRN Insomnia Allergies Allergies Allergy/AdvReac Type Severity Reaction Status Date / Time [facility] Allergy Unknown UNKNOWN Unverified 05/26/20 05:24 Assessment & Plan Assessment & Plan (1) Opioid use disorder, severe, dependence: Status: Acute Code(s): F11.20 - Opioid dependence, uncomplicated Assessment and Plan: * suboxone 2mg given with no effect * additional 4mg ordered at dinner then another 4mg at HS (total of 10mg) * ordered 8mg BID for the morning. * Recovery support RN will follow up in AM (2) ADHD: Status: Acute Code(s): F90.9 - Attention-deficit hyperactivity disorder, unspecified type Assessment and Plan: By recent history pt has done well with Vyvanse 40 mg, 30 mg requested to re- start regime. Not [place] [facility] Adderall 10 mg bid (3) PTSD (post-traumatic stress disorder): Status: Acute Code(s): F43.10 - Post-traumatic stress disorder, unspecified Assessment and Plan: 29 yo transgender male to female, with preference for female pronouns reports OD of cocaine and heroin in the community requiring Narcan with resulting reports of SI. Several stressors including inability to see 9 yo son who was adopted by pt's sister, boyfriend who is missing (came to ER before patient for treatment and has not been heard from), homelessness, need to re-establish Suboxone treatment and upcoming pre trial for possession of mushrooms. 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 Plan: -Continue to re-establish regime- Lamictal, Gabapentin, Hydroxyzine, Prazosin (increase to 4 mg hs), Albuterol, Trazodone, Pepcid, Colace -09/23/20 Increase Lamictal to 50 mg HS -Seroquel 50 mg HS prn to help with mgt of nightmares. 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 (5) Cannabis use disorder, moderate, dependence: Status: Acute Code(s): F12.20 - Cannabis dependence, uncomplicated (6) Psychoactive substance-induced mood disorder: Status: Acute Code(s): F19.94 - Other psychoactive substance use, unspecified with psychoactive substance-induced mood disorder Greater than 50% of the session was spent on counseling and/or coordination of care Reason for contiued inpatient stay Substantial Risk for: harm to self, inability to function, rapid decompensation and med/psych decompensation
[2020-09-23 20:02] VITALS: BP 138/79; PULSE 96
[2020-09-23] MEDS: lamoTRIgine 25 MG TABLET 50 MG PO (20:02)
[2020-09-23] MEDS: Prazosin HCL 1 MG CAPSULE 4 MG PO (20:02)
[2020-09-23] MEDS: hydrOXYzine HCL 50 MG TABLET 100 MG PO (20:11)
[2020-09-23] MEDS: QUEtiapine Fumarate 50 MG TABLET PO (22:47)
[2020-09-24 05:45] VITALS: BP 121/78; PULSE 92; TEMP 36.1
[2020-09-24] MEDS: Nicotine 21 MG PATCH.TD24 TRANSDERMA (08:58)
[2020-09-24] MEDS: Amphetamine Mixed Salts 10 MG TABLET PO ×2 (08:58→13:51)
[2020-09-24] MEDS: Gabapentin 400 MG CAPSULE PO ×3 (08:58→20:24)
[2020-09-24] MEDS: Buprenorphine/Naloxone 8/2 mg FILM 1 FILM SUBLINGUAL ×2 (08:59→20:25)
[2020-09-24] MEDS: Ibuprofen 600 MG TABLET PO (12:38)
[2020-09-24] MEDS: Nicotine Polacrilex 2 MG GUM 4 MG BUCCAL ×2 (13:51→15:57)
[2020-09-24] MEDS: LORazepam 1 MG TABLET PO ×2 (15:03→20:24)
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
[2020-09-24 18:00] VITALS: BP 162/71; PULSE 87; TEMP 36.2
[2020-09-24] MEDS: lamoTRIgine 25 MG TABLET 50 MG PO (20:24)
[2020-09-24] MEDS: hydrOXYzine HCL 50 MG TABLET 100 MG PO (20:24)
[2020-09-24 20:25] VITALS: BP 162/71; PULSE 87
[2020-09-24] MEDS: Prazosin HCL 1 MG CAPSULE 4 MG PO (20:25)
[2020-09-25 06:00] VITALS: BP 111/51; PULSE 75; TEMP 35.9; O2SAT 97
[2020-09-25] MEDS: Amphetamine Mixed Salts 10 MG TABLET PO ×2 (07:50→13:11)
[2020-09-25] MEDS: Buprenorphine/Naloxone 8/2 mg FILM 1 FILM SUBLINGUAL ×2 (07:50→21:03)
[2020-09-25] MEDS: Gabapentin 400 MG CAPSULE PO ×3 (07:50→21:03)
[2020-09-25] MEDS: Nicotine Polacrilex 2 MG GUM 4 MG BUCCAL ×2 (11:24→16:10)
[2020-09-25] MEDS: Nicotine 21 MG PATCH.TD24 TRANSDERMA (11:24)
--- NOTE | 2020-09-25 12:12 | P.PNPSI_ITS ---
Subjective Subjective Date of Service: 09/25/20 Reason For Visit: overdose Subjective Notes: Conditional Voluntary Healthcare Proxy: No Guardianship: No Medical Problems Affecting Mental Status: No Interim History: Reports regime to be helpful-cites Lamictal/Adderall as helping him to organize thoughts. Anxious about discharge. Discussed feelings of vulnerability. Medication Compliance: Yes Side effects from medications: No Attending Groups: Intermittent Review of Systems Psychiatric: Reports anxiety, Reports depression, Reports hopelessness, Reports mood swings, Reports paranoia and Reports suicidal ideation (denies) Mental Status Exam Mental Status Exam Patient Appearance: Appropriate Patient Orientation: Person, Place, Time and Situation Level of Consciousness: Alert Patient Behavior: Appropriate, Talkative, Cooperative, Anxious and Good Eye Contact Mood Description: Anxious Affect Description: Constricted and Anxious Patient Cognition Impaired: No Ability to Follow Directions: Good Speech Pattern: Clear, Appropriate, Spontaneous Speech and Coherent Memory Description: Episodic Impaired Hallucinations: None Delusions: Not Present and Paranoid Ideation (trauma based) Thought Process: Distracted and Rumination Thought Content: positive for Circumstantial, positive for Goal Oriented and positive for Suicidal Ideation (denies) Depressive Symptoms: Increased Anxiety and Low Self Esteem Judgement: Good Diagnostics Vital Signs (24Hr): Vital Signs - 24 hr 09/24/20 18:00 09/24/20 20:25 09/25/20 06:00 Temperature 97.1 F 96.7 F L Pulse Rate 87 87 75 Blood Pressure 162/71 H 162/71 H 111/51 L Pulse Oximetry 97 Body Mass Index 31.5 Labs Results: 09/19/20 08:29 09/19/20 08:29 Medications Medications Current Medications Generic Name Dose Route Start Last Admin Trade Name Kolbyq PRN Reason Stop Dose Admin Acetaminophen 650 mg 09/17/20 18:24 Acetaminophen 325 Mg Tablet PO Q6H PRN Headache/Pain Mild Scale (1-3) Al Hydroxide/Mg Hydroxide 30 ml 09/17/20 18:24 Magnesium Hydrox/Alum Hydrox 30 Ml Oral.Susp PO Q6H PRN Heartburn/Nausea Albuterol Sulfate 1 puff 09/18/20 11:56 Albuterol Sulfate 90 Mcg 8 Gm Inhaler INHALE RQ6H PRN Wheezing Amphetamine/Dextroamphetamine 10 mg 09/24/20 13:45 09/25/20 07:50 Amphetamine Mixed Salts 10 Mg Tablet PO 10 mg 0800,1300 ANGELES Administration Buprenorphine/Naloxone 1 film 09/19/20 09:00 09/25/20 07:50 Buprenorphine/Naloxone 8/2 Mg Film SUBLINGUAL 1 film BID ANGELES Administration Clonidine HCl 0.1 mg 09/17/20 20:15 Clonidine Hcl 0.1 Mg Tablet PO Q6H PRN Opiate Withdrawal Protocol Docusate Sodium 100 mg 09/18/20 11:59 Docusate Sodium 100 Mg Capsule PO BID PRN Constipation Famotidine 20 mg 09/18/20 11:58 Famotidine 20 Mg Tablet PO BID PRN GERD Gabapentin 400 mg 09/18/20 15:00 09/25/20 07:50 Gabapentin 400 Mg Capsule PO 400 mg TID ANGELES Administration Hydroxyzine HCl 100 mg 09/22/20 12:50 09/24/20 20:24 Hydroxyzine Hcl 50 Mg Tablet PO 100 mg Q6H PRN Administration Anxiety Ibuprofen 600 mg 09/18/20 12:00 09/24/20 12:38 Ibuprofen 600 Mg Tablet PO 600 mg Q8H PRN Administration Pain, Mild (Pain Scale 1-3) Lamotrigine 50 mg 09/23/20 21:00 09/24/20 20:24 Lamotrigine 25 Mg Tablet PO 50 mg BEDTIME ANGELES Administration Lorazepam 1 mg 09/18/20 12:02 09/24/20 20:24 Lorazepam 1 Mg Tablet PO 1 mg Q4H PRN Administration agitation Magnesium Hydroxide 30 ml 09/17/20 18:24 Milk Of Magnesia 30 Ml Oral.Susp PO DAILY PRN Constipation Nicotine 21 mg 09/18/20 11:00 09/25/20 11:24 Nicotine 21 Mg Patch.Td24 TRANSDERMA 21 mg DAILY ANGELES Administration Nicotine Polacrilex 4 mg 09/19/20 16:43 09/25/20 11:24 Nicotine Polacrilex 2 Mg Gum BUCCAL 4 mg Q2H PRN Administration Nicotine Cravings Olanzapine 5 mg 09/18/20 12:01 Olanzapine 5 Mg Tablet PO Q4H PRN agitation Ondansetron HCl 4 mg 09/17/20 20:16 Ondansetron Odt 4 Mg Tab.Rapdis TRANSLINGU Q6H PRN Nausea Pharmacy Consult 1 each 09/17/20 16:27 Consult Rx Perform Med Rec MISCELLANE ONCE PRN Consult order Prazosin HCl 4 mg 09/19/20 21:00 09/24/20 20:25 Prazosin Hcl 1 Mg Capsule PO 4 mg BEDTIME ANGELES Administration Protocol Quetiapine Fumarate 50 mg 09/23/20 17:32 09/23/20 22:47 Quetiapine Fumarate 50 Mg Tablet PO 50 mg BEDTIME PRN Administration nightmares Trazodone HCl 50 mg 09/17/20 18:24 Trazodone Hcl 50 Mg Tablet PO BEDTIME PRN Insomnia Allergies Allergies Allergy/AdvReac Type Severity Reaction Status Date / Time aripiprazole [From [facility]] Allergy Unknown UNKNOWN Unverified 05/26/20 05:24 Assessment & Plan Assessment & Plan (1) Opioid use disorder, severe, dependence: Status: Acute Code(s): F11.20 - Opioid dependence, uncomplicated Assessment and Plan: * suboxone 2mg given with no effect * additional 4mg ordered at dinner then another 4mg at HS (total of 10mg) * ordered 8mg BID for the morning. * Recovery support RN will follow up in AM (2) ADHD: Status: Acute Code(s): F90.9 - Attention-deficit hyperactivity disorder, unspecified type Assessment and Plan: By recent history pt has done well with Vyvanse 40 mg, 30 mg requested to re- start regime. Not [place] [facility] [place] [facility] Increase Adderall 15 mg bid- 0800, 1300 (3) PTSD (post-traumatic stress disorder): Status: Acute Code(s): F43.10 - Post-traumatic stress disorder, unspecified Assessment and Plan: 29 yo transgender male to female, with preference for female pronouns reports OD of cocaine and heroin in the community requiring Narcan with resulting reports of SI. Several stressors including inability to see 9 yo son who was adopted by pt's sister, boyfriend who is missing (came to ER before patient for treatment and has not been heard from), homelessness, need to re-establish Suboxone treatment and upcoming pre trial for possession of mushrooms. 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 09/24/20: Continue current regime. 09/25/20: Continue current regime. 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 (5) Cannabis use disorder, moderate, dependence: Status: Acute Code(s): F12.20 - Cannabis dependence, uncomplicated (6) Psychoactive substance-induced mood disorder: Status: Acute Code(s): F19.94 - Other psychoactive substance use, unspecified with psychoactive substance-induced mood disorder Greater than 50% of the session was spent on counseling and/or coordination of care Reason for contiued inpatient stay Substantial Risk for: harm to self, inability to function and rapid decompensation
[2020-09-25] MEDS: LORazepam 1 MG TABLET PO ×2 (13:11→21:03)
[2020-09-25 18:20] VITALS: BP 153/85; PULSE 80; TEMP 36.5
[2020-09-25 21:02] VITALS: BP 145/89; PULSE 100
[2020-09-25] MEDS: Prazosin HCL 1 MG CAPSULE 4 MG PO (21:02)
[2020-09-25] MEDS: lamoTRIgine 25 MG TABLET 50 MG PO (21:03)
[2020-09-25] MEDS: hydrOXYzine HCL 50 MG TABLET 100 MG PO (21:03)
[2020-09-26 06:43] VITALS: BP 101/53; PULSE 73; RESP 16; TEMP 36.3; O2SAT 98
[2020-09-26] MEDS: Amphetamine Mixed Salts 10 MG TABLET 15 MG PO ×2 (08:37→12:40)
[2020-09-26] MEDS: Gabapentin 400 MG CAPSULE PO ×2 (08:38→14:00)
[2020-09-26] MEDS: Buprenorphine/Naloxone 8/2 mg FILM 1 FILM SUBLINGUAL ×2 (08:38→21:23)
[2020-09-26] MEDS: Nicotine 21 MG PATCH.TD24 TRANSDERMA (12:40)
[2020-09-26] MEDS: Ibuprofen 600 MG TABLET PO (12:41)
[2020-09-26 16:20] VITALS: BP 161/93; PULSE 95; TEMP 36.8
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
[2020-09-26] MEDS: LORazepam 1 MG TABLET PO ×2 (18:30→23:28)
[2020-09-26] MEDS: Docusate Sodium 100 MG CAPSULE PO ×2 (18:31→21:23)
[2020-09-26] MEDS: Nicotine Polacrilex 2 MG GUM 4 MG BUCCAL (18:31)
[2020-09-26 21:23] VITALS: BP 153/86; PULSE 99
[2020-09-26] MEDS: Prazosin HCL 1 MG CAPSULE 4 MG PO (21:23)
[2020-09-26] MEDS: Gabapentin 300 MG CAPSULE 600 MG PO (21:23)
[2020-09-26] MEDS: lamoTRIgine 25 MG TABLET 50 MG PO (21:23)
[2020-09-27] MEDS: Amphetamine Mixed Salts 10 MG TABLET 15 MG PO ×2 (08:45→12:34)
[2020-09-27] MEDS: Gabapentin 300 MG CAPSULE 600 MG PO ×3 (08:45→21:38)
[2020-09-27] MEDS: Docusate Sodium 100 MG CAPSULE PO ×2 (08:45→21:38)
[2020-09-27 10:14] VITALS: BP 108/54; PULSE 89; RESP 16; O2SAT 98
[2020-09-27] MEDS: Buprenorphine/Naloxone 8/2 mg FILM 1 FILM SUBLINGUAL ×2 (10:40→21:38)
[2020-09-27] MEDS: Nicotine Polacrilex 2 MG GUM 4 MG BUCCAL (12:35)
[2020-09-27] MEDS: Ibuprofen 600 MG TABLET PO ×2 (12:35→21:37)
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
[2020-09-27 21:38] VITALS: BP 170/99; PULSE 99
[2020-09-27] MEDS: lamoTRIgine 25 MG TABLET 50 MG PO (21:38)
[2020-09-27] MEDS: Prazosin HCL 1 MG CAPSULE 4 MG PO (21:38)
[2020-09-27] MEDS: hydrOXYzine HCL 50 MG TABLET 100 MG PO (21:41)
[2020-09-27] MEDS: LORazepam 1 MG TABLET PO (21:41)
[2020-09-27 21:45] VITALS: BP 170/99; PULSE 99; TEMP 36.1
[2020-09-28 06:00] VITALS: BP 111/65; PULSE 75; RESP 18; TEMP 36.4; O2SAT 100
[2020-09-28] MEDS: Docusate Sodium 100 MG CAPSULE PO ×2 (08:08→20:35)
[2020-09-28] MEDS: Gabapentin 300 MG CAPSULE 600 MG PO ×3 (08:08→20:34)
[2020-09-28] MEDS: Amphetamine Mixed Salts 10 MG TABLET 15 MG PO ×2 (08:08→13:13)
[2020-09-28] MEDS: Buprenorphine/Naloxone 8/2 mg FILM 1 FILM SUBLINGUAL ×2 (08:08→20:34)
[2020-09-28] MEDS: Nicotine 21 MG PATCH.TD24 TRANSDERMA (13:14)
[2020-09-28] MEDS: Nicotine Polacrilex 2 MG GUM 4 MG BUCCAL ×2 (14:39→18:31)
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
[2020-09-28] MEDS: Ibuprofen 600 MG TABLET PO (18:30)
[2020-09-28] MEDS: LORazepam 1 MG TABLET PO ×2 (18:30→22:38)
[2020-09-28] MEDS: lamoTRIgine 25 MG TABLET 50 MG PO (20:34)
[2020-09-28] MEDS: Prazosin HCL 1 MG CAPSULE 4 MG PO (20:35)
[2020-09-28] MEDS: hydrOXYzine HCL 50 MG TABLET 100 MG PO (20:36)
[2020-09-28 20:43] VITALS: BP 138/78; PULSE 96; TEMP 36.6
[2020-09-29 06:00] VITALS: BP 95/49; PULSE 75; RESP 18; TEMP 35.8; O2SAT 97
[2020-09-29] MEDS: Gabapentin 300 MG CAPSULE 600 MG PO ×3 (08:06→20:55)
[2020-09-29] MEDS: Amphetamine Mixed Salts 10 MG TABLET 15 MG PO ×2 (08:07→12:33)
[2020-09-29] MEDS: Buprenorphine/Naloxone 8/2 mg FILM 1 FILM SUBLINGUAL ×2 (08:08→20:56)
[2020-09-29] MEDS: Nicotine Polacrilex 2 MG GUM 4 MG BUCCAL ×2 (09:43→15:13)
[2020-09-29] MEDS: Ibuprofen 600 MG TABLET PO (12:33)
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
[2020-09-29] MEDS: LORazepam 1 MG TABLET PO ×2 (15:13→20:55)
[2020-09-29] MEDS: Nicotine 21 MG PATCH.TD24 TRANSDERMA (15:13)
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
[2020-09-29 18:00] VITALS: BP 142/87; PULSE 107; TEMP 37.1
[2020-09-29 20:55] VITALS: BP 142/85; PULSE 107
[2020-09-29] MEDS: hydrOXYzine HCL 50 MG TABLET 100 MG PO (20:55)
[2020-09-29] MEDS: Prazosin HCL 1 MG CAPSULE 4 MG PO (20:55)
[2020-09-29] MEDS: lamoTRIgine 25 MG TABLET 50 MG PO (20:55)
[2020-09-29] MEDS: Docusate Sodium 100 MG CAPSULE PO (20:55)
[2020-09-30 06:00] VITALS: BP 150/63; PULSE 85; RESP 18; TEMP 36.8; O2SAT 99
[2020-09-30] MEDS: Amphetamine Mixed Salts 10 MG TABLET 15 MG PO ×2 (09:06→12:03)
[2020-09-30] MEDS: Buprenorphine/Naloxone 8/2 mg FILM 1 FILM SUBLINGUAL ×2 (09:06→22:03)
[2020-09-30] MEDS: Gabapentin 300 MG CAPSULE 600 MG PO ×3 (09:06→22:04)
--- NOTE | 2020-09-30 11:07 | HO.PSYCHPN ---
Subjective Subjective Date of Service: 09/30/20 Reason For Visit: overdose Subjective Notes: Conditional Voluntary Healthcare Proxy: No Guardianship: No Medical Problems Affecting Mental Status: No Interim History: Pt interviewed with [facility] today- is in process of an eligibility interview and will probably have a bed early next week. Calmer today. Retracted TDN. Discussed Suboxone Rx. Pt prefers to dose once per day, in the a.m. Will make these changes. Discussed conflicts yesterday and was clear, on point and cohesive regarding how she wants these issues to be addressed. Medication Compliance: Yes Side effects from medications: No Attending Groups: Yes Review of Systems Psychiatric: Reports anxiety, Reports depression, Reports difficulty concentrating, Reports irritability, Reports panic attacks and Reports suicidal ideation Mental Status Exam Mental Status Exam Patient Appearance: Appropriate Patient Orientation: Person, Place, Time and Situation Level of Consciousness: Alert Patient Behavior: Appropriate, Talkative, Cooperative and Good Eye Contact Mood Description: Depressed and Anxious Affect Description: Flat Patient Cognition Impaired: No Ability to Follow Directions: Good Speech Pattern: Spontaneous Speech Memory Description: Episodic Impaired Hallucinations: None Delusions: Not Present Thought Process: Goal Oriented Thought Content: positive for [place], positive for Circumstantial and positive for Suicidal Ideation Depressive Symptoms: Increased Anxiety, Diff. Making Decisions, Thoughts of /Suicide and Low Self Esteem Judgement: Fair Diagnostics Vital Signs (24Hr): Vital Signs - 24 hr 09/29/20 18:00 09/29/20 20:55 09/30/20 06:00 Temperature 98.7 F 98.2 F Pulse Rate 107 H 107 H 85 Respiratory Rate 18 Blood Pressure 142/87 H 142/85 H 150/63 H Pulse Oximetry 99 Body Mass Index 31.5 Labs Results: 09/19/20 08:29 09/19/20 08:29 Medications Medications Current Medications Generic Name Dose Route Start Last Admin Trade Name Freq PRN Reason Stop Dose Admin Acetaminophen 650 mg 09/17/20 18:24 Acetaminophen 325 Mg Tablet PO Q6H PRN Headache/Pain Mild Scale (1-3) Al Hydroxide/Mg Hydroxide 30 ml 09/17/20 18:24 Magnesium Hydrox/Alum Hydrox 30 Ml Oral.Susp PO Q6H PRN Heartburn/Nausea Albuterol Sulfate 1 puff 09/18/20 11:56 Albuterol Sulfate 90 Mcg 8 Gm Inhaler INHALE RQ6H PRN Wheezing Amphetamine/Dextroamphetamine 15 mg 09/26/20 08:00 09/30/20 09:06 Amphetamine Mixed Salts 10 Mg Tablet PO 15 mg 0800,1300 ANGELES Administration Buprenorphine/Naloxone 1 film 09/19/20 09:00 09/30/20 09:06 Buprenorphine/Naloxone 8/2 Mg Film SUBLINGUAL 1 film BID ANGELES Administration Clonidine HCl 0.1 mg 09/17/20 20:15 Clonidine Hcl 0.1 Mg Tablet PO Q6H PRN Opiate Withdrawal Protocol Docusate Sodium 100 mg 09/18/20 11:59 09/26/20 18:31 Docusate Sodium 100 Mg Capsule PO 100 mg BID PRN Administration Constipation Docusate Sodium 100 mg 09/26/20 21:00 09/30/20 09:09 Docusate Sodium 100 Mg Capsule PO Not Given BID ANGELES Famotidine 20 mg 09/18/20 11:58 Famotidine 20 Mg Tablet PO BID PRN GERD Gabapentin 600 mg 09/26/20 21:00 09/30/20 09:06 Gabapentin 300 Mg Capsule PO 600 mg TID ANGELES Administration Hydroxyzine HCl 100 mg 09/22/20 12:50 09/29/20 20:55 Hydroxyzine Hcl 50 Mg Tablet PO 100 mg Q6H PRN Administration Anxiety Ibuprofen 600 mg 09/18/20 12:00 09/29/20 12:33 Ibuprofen 600 Mg Tablet PO 600 mg Q8H PRN Administration Pain, Mild (Pain Scale 1-3) Lamotrigine 100 mg 09/30/20 21:00 Lamotrigine 100 Mg Tablet PO BEDTIME ANGELES Lorazepam 1 mg 09/18/20 12:02 09/29/20 20:55 Lorazepam 1 Mg Tablet PO 1 mg Q4H PRN Administration agitation Magnesium Hydroxide 30 ml 09/17/20 18:24 Milk Of Magnesia 30 Ml Oral.Susp PO DAILY PRN Constipation Nicotine 21 mg 09/18/20 11:00 09/29/20 15:13 Nicotine 21 Mg Patch.Td24 TRANSDERMA 21 mg DAILY ANGELES Administration Nicotine Polacrilex 4 mg 09/19/20 16:43 09/29/20 15:13 Nicotine Polacrilex 2 Mg Gum BUCCAL 4 mg Q2H PRN Administration Nicotine Cravings Olanzapine 5 mg 09/18/20 12:01 Olanzapine 5 Mg Tablet PO Q4H PRN agitation Ondansetron HCl 4 mg 09/17/20 20:16 Ondansetron Odt 4 Mg Tab.Rapdis TRANSLINGU Q6H PRN Nausea Pharmacy Consult 1 each 09/17/20 16:27 Consult Rx Perform Med Rec MISCELLANE ONCE PRN Consult order Prazosin HCl 4 mg 09/19/20 21:00 09/29/20 20:55 Prazosin Hcl 1 Mg Capsule PO 4 mg BEDTIME ANEGLES Administration Protocol Quetiapine Fumarate 50 mg 09/23/20 17:32 09/23/20 22:47 Quetiapine Fumarate 50 Mg Tablet PO 50 mg BEDTIME PRN Administration nightmares Trazodone HCl 50 mg 09/17/20 18:24 Trazodone Hcl 50 Mg Tablet PO BEDTIME PRN Insomnia Allergies Allergies Allergy/AdvReac Type Severity Reaction Status Date / Time aripiprazole [From [facility]] Allergy Unknown UNKNOWN Unverified 05/26/20 05:24 Assessment & Plan Assessment & Plan (1) PTSD (post-traumatic stress disorder): Status: Acute Code(s): F43.10 - Post-traumatic stress disorder, unspecified Assessment and Plan: -Continue current regime -Three day notice is retracted -Continue to work with pt on safe discharge planning. Possible bed with [facility] early next week. Pt participating in the process. (2) Opioid use disorder, severe, dependence: Status: Acute Code(s): F11.20 - Opioid dependence, uncomplicated Assessment and Plan: -Continue Suboxone Greater than 50% of the session was spent on counseling and/or coordination of care Reason for contiued inpatient stay Substantial Risk for: harm to self, inability to function and rapid decompensation
[2020-09-30] MEDS: LORazepam 1 MG TABLET PO ×3 (11:44→22:04)
[2020-09-30] MEDS: Nicotine 21 MG PATCH.TD24 TRANSDERMA (11:45)
[2020-09-30] MEDS: Nicotine Polacrilex 2 MG GUM 4 MG BUCCAL ×3 (11:45→17:49)
[2020-09-30 18:00] VITALS: BP 144/88; PULSE 91; TEMP 37
[2020-09-30] MEDS: lamoTRIgine 100 MG TABLET PO (22:04)
[2020-09-30] MEDS: Docusate Sodium 100 MG CAPSULE PO (22:04)
[2020-09-30] MEDS: hydrOXYzine HCL 50 MG TABLET 100 MG PO (22:04)
[2020-09-30] MEDS: Prazosin HCL 1 MG CAPSULE 4 MG PO (22:04)
[2020-10-01 06:44] VITALS: BP 90/46; PULSE 80; TEMP 36.1; O2SAT 90
[2020-10-01] MEDS: Amphetamine Mixed Salts 10 MG TABLET 15 MG PO ×2 (09:08→12:28)
[2020-10-01] MEDS: Gabapentin 300 MG CAPSULE 600 MG PO ×3 (09:09→21:02)
[2020-10-01] MEDS: Buprenorphine/Naloxone 8/2 mg FILM 2 FILM SUBLINGUAL (09:28)
[2020-10-01] MEDS: Nicotine Polacrilex 2 MG GUM 4 MG BUCCAL ×2 (12:28→21:18)
[2020-10-01] MEDS: Nicotine 21 MG PATCH.TD24 TRANSDERMA (12:30)
[2020-10-01] MEDS: LORazepam 1 MG TABLET PO ×2 (12:38→21:19)
--- NOTE | 2020-10-01 17:09 | HO.PSYCHPN ---
Subjective Subjective Date of Service: 10/01/20 Reason For Visit: overdose Review of Systems Pleased with plan for admission to residential for next week. Does report difficulty with sleep and nightmares. Will increase Prazosin to 5 mg hs as she has had by history. Review of Systems Reports behavioral changes Psychiatric: Reports abnormal sleep pattern, Reports anxiety, Reports behavioral changes, Reports depression, Reports irritability, Reports mood swings and Reports suicidal ideation (denies-pleased with current plan of care.) Mental Status Exam Mental Status Exam Patient Appearance: Appropriate Patient Orientation: Person, Place, Time and Situation Level of Consciousness: Awake and Alert Patient Behavior: Appropriate, Talkative, Cooperative and Good Eye Contact Mood Description: Apprehensive Affect Description: Constricted Patient Cognition Impaired: No Ability to Follow Directions: Good Speech Pattern: Spontaneous Speech Memory Description: Intact Hallucinations: None Delusions: Not Present Thought Content: positive for [place], positive for Circumstantial and positive for Goal Oriented Depressive Symptoms: Increased Anxiety, Insomnia, Difficulty Sleeping, Thoughts of /Suicide (denies) and Low Self Esteem Judgement: Good Diagnostics Vital Signs (24Hr): Vital Signs - 24 hr 09/30/20 18:00 10/01/20 06:44 Temperature 98.6 F 96.9 F Pulse Rate 91 80 Blood Pressure 144/88 H 90/46 L Pulse Oximetry 90 L Body Mass Index 31.5 Labs Results: 09/19/20 08:29 09/19/20 08:29 Medications Medications Current Medications Generic Name Dose Route Start Last Admin Trade Name Freq PRN Reason Stop Dose Admin Acetaminophen 650 mg 09/17/20 18:24 Acetaminophen 325 Mg Tablet PO Q6H PRN Headache/Pain Mild Scale (1-3) Al Hydroxide/Mg Hydroxide 30 ml 09/17/20 18:24 Magnesium Hydrox/Alum Hydrox 30 Ml Oral.Susp PO Q6H PRN Heartburn/Nausea Albuterol Sulfate 1 puff 09/18/20 11:56 Albuterol Sulfate 90 Mcg 8 Gm Inhaler INHALE RQ6H PRN Wheezing Amphetamine/Dextroamphetamine 15 mg 09/26/20 08:00 10/01/20 12:28 Amphetamine Mixed Salts 10 Mg Tablet PO 15 mg 0800,1300 ANGELES Administration Buprenorphine/Naloxone 2 film 10/01/20 09:20 10/01/20 09:28 Buprenorphine/Naloxone 8/2 Mg Film SUBLINGUAL 2 film DAILY ANGELES Administration Clonidine HCl 0.1 mg 09/17/20 20:15 Clonidine Hcl 0.1 Mg Tablet PO Q6H PRN Opiate Withdrawal Protocol Docusate Sodium 100 mg 09/18/20 11:59 09/26/20 18:31 Docusate Sodium 100 Mg Capsule PO 100 mg BID PRN Administration Constipation Docusate Sodium 100 mg 09/26/20 21:00 10/01/20 09:11 Docusate Sodium 100 Mg Capsule PO Not Given BID ANGELES Famotidine 20 mg 09/18/20 11:58 Famotidine 20 Mg Tablet PO BID PRN GERD Gabapentin 600 mg 09/26/20 21:00 10/01/20 14:21 Gabapentin 300 Mg Capsule PO 600 mg TID ANGELES Administration Hydroxyzine HCl 100 mg 09/22/20 12:50 09/30/20 22:04 Hydroxyzine Hcl 50 Mg Tablet PO 100 mg Q6H PRN Administration Anxiety Ibuprofen 600 mg 09/18/20 12:00 09/29/20 12:33 Ibuprofen 600 Mg Tablet PO 600 mg Q8H PRN Administration Pain, Mild (Pain Scale 1-3) Lamotrigine 100 mg 09/30/20 21:00 09/30/20 22:04 Lamotrigine 100 Mg Tablet PO 100 mg BEDTIME ANGELES Administration Lorazepam 1 mg 09/18/20 12:02 10/01/20 12:38 Lorazepam 1 Mg Tablet PO 1 mg Q4H PRN Administration agitation Magnesium Hydroxide 30 ml 09/17/20 18:24 Milk Of Magnesia 30 Ml Oral.Susp PO DAILY PRN Constipation Nicotine 21 mg 09/18/20 11:00 10/01/20 12:30 Nicotine 21 Mg Patch.Td24 TRANSDERMA 21 mg DAILY ANGELES Administration Nicotine Polacrilex 4 mg 09/19/20 16:43 10/01/20 12:28 Nicotine Polacrilex 2 Mg Gum BUCCAL 4 mg Q2H PRN Administration Nicotine Cravings Olanzapine 5 mg 09/18/20 12:01 Olanzapine 5 Mg Tablet PO Q4H PRN agitation Ondansetron HCl 4 mg 09/17/20 20:16 Ondansetron Odt 4 Mg Tab.Rapdis TRANSLINGU Q6H PRN Nausea Pharmacy Consult 1 each 09/17/20 16:27 Consult Rx Perform Med Rec MISCELLANE ONCE PRN Consult order Prazosin HCl 5 mg 10/01/20 21:00 Prazosin Hcl 5 Mg Capsule PO BEDTIME ANGELES Protocol Quetiapine Fumarate 50 mg 09/23/20 17:32 09/23/20 22:47 Quetiapine Fumarate 50 Mg Tablet PO 50 mg BEDTIME PRN Administration nightmares Trazodone HCl 50 mg 09/17/20 18:24 Trazodone Hcl 50 Mg Tablet PO BEDTIME PRN Insomnia Allergies Allergies Allergy/AdvReac Type Severity Reaction Status Date / Time aripiprazole [From [facility]] Allergy Unknown UNKNOWN Unverified 05/26/20 05:24 Assessment & Plan Assessment & Plan (1) PTSD (post-traumatic stress disorder): Status: Acute Code(s): F43.10 - Post-traumatic stress disorder, unspecified Assessment and Plan: -Continue current regime -Three day notice is retracted -Continue to work with pt on safe discharge planning. Will discharge to [facility] on October 06, 2020. -Increase Prazosin to 5 mg HS. (2) Opioid use disorder, severe, dependence: Status: Acute Code(s): F11.20 - Opioid dependence, uncomplicated Assessment and Plan: -Continue Suboxone Greater than 50% of the session was spent on counseling and/or coordination of care Patient educated on: medication risk/benefits and therapeutic strategies Reason for contiued inpatient stay Substantial Risk for: harm to self, inability to function and rapid decompensation
[2020-10-01 18:00] VITALS: BP 152/81; PULSE 84; RESP 18; TEMP 35.9; O2SAT 98
[2020-10-01] MEDS: Ibuprofen 600 MG TABLET PO (21:03)
[2020-10-01 21:04] VITALS: BP 154/89; PULSE 93
[2020-10-01] MEDS: lamoTRIgine 100 MG TABLET PO (21:04)
[2020-10-01] MEDS: Prazosin HCL 5 MG CAPSULE PO (21:04)
[2020-10-01] MEDS: Docusate Sodium 100 MG CAPSULE PO (21:04)
[2020-10-01] MEDS: hydrOXYzine HCL 50 MG TABLET 100 MG PO (21:18)
[2020-10-02 06:26] VITALS: BP 88/45; PULSE 141; RESP 16; TEMP 36.1; O2SAT 96
[2020-10-02] MEDS: Buprenorphine/Naloxone 8/2 mg FILM 2 FILM SUBLINGUAL (09:22)
[2020-10-02] MEDS: Amphetamine Mixed Salts 10 MG TABLET 15 MG PO ×2 (09:22→12:44)
[2020-10-02] MEDS: Gabapentin 300 MG CAPSULE 600 MG PO ×3 (09:22→22:25)
[2020-10-02] MEDS: Nicotine 21 MG PATCH.TD24 TRANSDERMA (09:24)
[2020-10-02] MEDS: LORazepam 1 MG TABLET PO ×3 (11:05→22:25)
[2020-10-02] MEDS: Nicotine Polacrilex 2 MG GUM 4 MG BUCCAL ×2 (11:05→18:47)
[2020-10-02 12:34] VITALS: BMI 37.8
--- NOTE | 2020-10-02 13:23 | P.PNPSI_ITS ---
Subjective Subjective Date of Service: 10/02/20 Reason For Visit: overdose Subjective Notes: Conditional Voluntary Healthcare Proxy: No Guardianship: No Medical Problems Affecting Mental Status: No Interim History: Continues to report high levels of depressive and anxious sx, however, states he is very satisfied with discharge plan for 10/06/20 and his anticipation about this may be contributing. Reports increase in Prazosin helped him with improved sleep last night. Medication Compliance: Yes Side effects from medications: No Attending Groups: Intermittent Review of Systems Acute medical concerns: No Review of Systems Reports behavioral changes and Reports memory loss Psychiatric: Reports anxiety, Reports behavioral changes, Reports depression, Reports difficulty concentrating, Reports irritability, Reports anhedonia, Reports memory loss and Reports suicidal ideation (denies) Mental Status Exam Mental Status Exam Patient Appearance: Appropriate Patient Orientation: Person, Place and Time Level of Consciousness: Alert Patient Behavior: Talkative, Anxious and Good Eye Contact Mood Description: Constricted Affect Description: Constricted Patient Cognition Impaired: No Ability to Follow Directions: Good Speech Pattern: Spontaneous Speech Memory Description: Episodic Impaired Hallucinations: None Delusions: Not Present Perceptual Disturbances: Depersonalization Thought Process: Goal Oriented Thought Content: positive for Goal Oriented and positive for Suicidal Ideation (denies) Depressive Symptoms: Increased Anxiety, Diff. Making Decisions and Low Self Est eem Judgement: Fair Diagnostics Vital Signs (24Hr): Vital Signs - 24 hr 10/01/20 18:00 10/01/20 21:04 10/02/20 06:26 Temperature 96.7 F L 96.9 F Pulse Rate 84 93 141 H Respiratory Rate 18 16 Blood Pressure 152/81 H 154/89 H 88/45 L Pulse Oximetry 98 96 Body Mass Index 37.8 Labs Results: 09/19/20 08:29 09/19/20 08:29 Medications Medications Current Medications Generic Name Dose Route Start Last Admin Trade Name Freq PRN Reason Stop Dose Admin Acetaminophen 650 mg 09/17/20 18:24 Acetaminophen 325 Mg Tablet PO Q6H PRN Headache/Pain Mild Scale (1-3) Al Hydroxide/Mg Hydroxide 30 ml 09/17/20 18:24 Magnesium Hydrox/Alum Hydrox 30 Ml Oral.Susp PO Q6H PRN Heartburn/Nausea Albuterol Sulfate 1 puff 09/18/20 11:56 Albuterol Sulfate 90 Mcg 8 Gm Inhaler INHALE RQ6H PRN Wheezing Amphetamine/Dextroamphetamine 15 mg 09/26/20 08:00 10/02/20 12:44 Amphetamine Mixed Salts 10 Mg Tablet PO 15 mg 0800,1300 ANGELES Administration Buprenorphine/Naloxone 2 film 10/01/20 09:20 10/02/20 09:22 Buprenorphine/Naloxone 8/2 Mg Film SUBLINGUAL 2 film DAILY ANGELES Administration Clonidine HCl 0.1 mg 09/17/20 20:15 Clonidine Hcl 0.1 Mg Tablet PO Q6H PRN Opiate Withdrawal Protocol Docusate Sodium 100 mg 09/18/20 11:59 09/26/20 18:31 Docusate Sodium 100 Mg Capsule PO 100 mg BID PRN Administration Constipation Docusate Sodium 100 mg 09/26/20 21:00 10/02/20 09:24 Docusate Sodium 100 Mg Capsule PO Not Given BID ANGELES Famotidine 20 mg 09/18/20 11:58 Famotidine 20 Mg Tablet PO BID PRN GERD Gabapentin 600 mg 09/26/20 21:00 10/02/20 09:22 Gabapentin 300 Mg Capsule PO 600 mg TID ANGELES Administration Hydroxyzine HCl 100 mg 09/22/20 12:50 10/01/20 21:18 Hydroxyzine Hcl 50 Mg Tablet PO 100 mg Q6H PRN Administration Anxiety Ibuprofen 600 mg 09/18/20 12:00 10/01/20 21:03 Ibuprofen 600 Mg Tablet PO 600 mg Q8H PRN Administration Pain, Mild (Pain Scale 1-3) Lamotrigine 100 mg 09/30/20 21:00 10/01/20 21:04 Lamotrigine 100 Mg Tablet PO 100 mg BEDTIME ANGELES Administration Lorazepam 1 mg 09/18/20 12:02 10/02/20 11:05 Lorazepam 1 Mg Tablet PO 1 mg Q4H PRN Administration agitation Magnesium Hydroxide 30 ml 09/17/20 18:24 Milk Of Magnesia 30 Ml Oral.Susp PO DAILY PRN Constipation Nicotine 21 mg 09/18/20 11:00 10/02/20 09:24 Nicotine 21 Mg Patch.Td24 TRANSDERMA 21 mg DAILY ANGELES Administration Nicotine Polacrilex 4 mg 09/19/20 16:43 10/02/20 11:05 Nicotine Polacrilex 2 Mg Gum BUCCAL 4 mg Q2H PRN Administration Nicotine Cravings Olanzapine 5 mg 09/18/20 12:01 Olanzapine 5 Mg Tablet PO Q4H PRN agitation Ondansetron HCl 4 mg 09/17/20 20:16 Ondansetron Odt 4 Mg Tab.Rapdis TRANSLINGU Q6H PRN Nausea Pharmacy Consult 1 each 09/17/20 16:27 Consult Rx Perform Med Rec MISCELLANE ONCE PRN Consult order Prazosin HCl 5 mg 10/01/20 21:00 10/01/20 21:04 Prazosin Hcl 5 Mg Capsule PO 5 mg BEDTIME ANGELES Administration Protocol Trazodone HCl 50 mg 09/17/20 18:24 Trazodone Hcl 50 Mg Tablet PO BEDTIME PRN Insomnia Allergies Allergies Allergy/AdvReac Type Severity Reaction Status Date / Time aripiprazole [From [facility]] Allergy Unknown UNKNOWN Unverified 05/26/20 05:24 Assessment & Plan Assessment & Plan (1) PTSD (post-traumatic stress disorder): Status: Acute Code(s): F43.10 - Post-traumatic stress disorder, unspecified Assessment and Plan: -Continue current regime -Three day notice is retracted -Continue to work with pt on safe discharge planning. Will discharge to [facility] on October 06, 2020. -Continue Prazosin 5 mg HS-pt reports it has been helpful. (2) Opioid use disorder, severe, dependence: Status: Acute Code(s): F11.20 - Opioid dependence, uncomplicated Assessment and Plan: -Continue Suboxone Greater than 50% of the session was spent on counseling and/or coordination of care Patient educated on: medication risk/benefits and therapeutic strategies Informed Consent: understands and further education needed Reason for contiued inpatient stay Substantial Risk for: harm to self, harm to others, inability to function and rapid decompensation
[2020-10-02 17:30] VITALS: BP 108/64; PULSE 84; TEMP 36.4
[2020-10-02 22:25] VITALS: BP 126/59; PULSE 96
[2020-10-02] MEDS: Prazosin HCL 5 MG CAPSULE PO (22:25)
[2020-10-02] MEDS: lamoTRIgine 100 MG TABLET PO (22:25)
[2020-10-03] MEDS: hydrOXYzine HCL 50 MG TABLET 100 MG PO ×2 (01:51→21:05)
[2020-10-03] MEDS: Amphetamine Mixed Salts 10 MG TABLET 15 MG PO ×2 (08:49→12:54)
[2020-10-03] MEDS: Buprenorphine/Naloxone 8/2 mg FILM 2 FILM SUBLINGUAL (08:50)
[2020-10-03] MEDS: Gabapentin 300 MG CAPSULE 600 MG PO ×3 (08:50→20:59)
[2020-10-03 09:55] VITALS: BP 88/52; PULSE 81; RESP 16; O2SAT 96
[2020-10-03] MEDS: Nicotine 21 MG PATCH.TD24 TRANSDERMA (12:52)
[2020-10-03] MEDS: Nicotine Polacrilex 2 MG GUM 4 MG BUCCAL ×2 (12:52→16:48)
--- NOTE | 2020-10-03 16:22 | HO.PSYCHPN ---
Subjective Subjective Date of Service: 10/03/20 Reason For Visit: overdose Subjective Notes: Conditional Voluntary Healthcare Proxy: No Guardianship: No Medical Problems Affecting Mental Status: No Interim History: Expressed ambivalence about attending [facility] as she believes the rules are too constricting. Review of medicaitons-reports constipation not relieved with MOM/Colace. Magnesium Citrate ordered prn. Expressed anger that her opportunity to live with another patient was taken . It was not shared that the patient being referred to asked that this plan not take place as it was not a mutual agreement, but a plan pt's peer felt was forced upon her. Medication Compliance: Yes Side effects from medications: No Attending Groups: Intermittent Review of Systems Acute medical concerns: No constipation Medical Review of Systems: unchanged Review of Systems Reports behavioral changes Psychiatric: Reports anxiety, Reports behavioral changes, Reports difficulty concentrating, Reports irritability, Reports anhedonia and Reports mood swings Mental Status Exam Mental Status Exam Patient Appearance: Appropriate Patient Orientation: Person, Place, Time and Situation Level of Consciousness: Alert Patient Behavior: Talkative Mood Description: Constricted and Angry Affect Description: Constricted and Angry Patient Cognition Impaired: No Ability to Follow Directions: Good Speech Pattern: Spontaneous Speech Memory Description: Intact Hallucinations: None Delusions: Not Present Thought Process: Distracted and Goal Oriented Thought Content: positive for Circumstantial and positive for Goal Oriented Depressive Symptoms: Increased Irritability Judgement: Fair Diagnostics Vital Signs (24Hr): Vital Signs - 24 hr 10/02/20 17:30 10/02/20 22:25 10/03/20 09:55 Temperature 97.5 F Pulse Rate 84 96 81 Respiratory Rate 16 Blood Pressure 108/64 126/59 L 88/52 L Pulse Oximetry 96 Body Mass Index 37.8 Labs Results: 09/19/20 08:29 09/19/20 08:29 Medications Medications Current Medications Generic Name Dose Route Start Last Admin Trade Name Freq PRN Reason Stop Dose Admin Acetaminophen 650 mg 09/17/20 18:24 Acetaminophen 325 Mg Tablet PO Q6H PRN Headache/Pain Mild Scale (1-3) Al Hydroxide/Mg Hydroxide 30 ml 09/17/20 18:24 Magnesium Hydrox/Alum Hydrox 30 Ml Oral.Susp PO Q6H PRN Heartburn/Nausea Albuterol Sulfate 1 puff 09/18/20 11:56 Albuterol Sulfate 90 Mcg 8 Gm Inhaler INHALE RQ6H PRN Wheezing Amphetamine/Dextroamphetamine 15 mg 09/26/20 08:00 10/03/20 12:54 Amphetamine Mixed Salts 10 Mg Tablet PO 15 mg 0800,1300 ANGELES Administration Buprenorphine/Naloxone 2 film 10/01/20 09:20 10/03/20 08:50 Buprenorphine/Naloxone 8/2 Mg Film SUBLINGUAL 2 film DAILY ANGELES Administration Clonidine HCl 0.1 mg 09/17/20 20:15 Clonidine Hcl 0.1 Mg Tablet PO Q6H PRN Opiate Withdrawal Protocol Docusate Sodium 100 mg 09/18/20 11:59 09/26/20 18:31 Docusate Sodium 100 Mg Capsule PO 100 mg BID PRN Administration Constipation Docusate Sodium 100 mg 09/26/20 21:00 10/03/20 08:57 Docusate Sodium 100 Mg Capsule PO Not Given BID ANGELES Famotidine 20 mg 09/18/20 11:58 Famotidine 20 Mg Tablet PO BID PRN GERD Gabapentin 600 mg 09/26/20 21:00 10/03/20 14:43 Gabapentin 300 Mg Capsule PO 600 mg TID ANGELES Administration Hydroxyzine HCl 100 mg 09/22/20 12:50 10/03/20 01:51 Hydroxyzine Hcl 50 Mg Tablet PO 100 mg Q6H PRN Administration Anxiety Ibuprofen 600 mg 09/18/20 12:00 10/01/20 21:03 Ibuprofen 600 Mg Tablet PO 600 mg Q8H PRN Administration Pain, Mild (Pain Scale 1-3) Lamotrigine 100 mg 09/30/20 21:00 10/02/20 22:25 Lamotrigine 100 Mg Tablet PO 100 mg BEDTIME ANGELES Administration Lorazepam 1 mg 09/18/20 12:02 10/02/20 22:25 Lorazepam 1 Mg Tablet PO 1 mg Q4H PRN Administration agitation Magnesium Citrate 300 ml 10/03/20 16:16 Magnesium Citrate 300 Ml Solution PO ONCE PRN Constipation Magnesium Hydroxide 30 ml 09/17/20 18:24 Milk Of Magnesia 30 Ml Oral.Susp PO DAILY PRN Constipation Nicotine 21 mg 09/18/20 11:00 10/03/20 12:52 Nicotine 21 Mg Patch.Td24 TRANSDERMA 21 mg DAILY ANGELES Administration Nicotine Polacrilex 4 mg 09/19/20 16:43 10/03/20 12:52 Nicotine Polacrilex 2 Mg Gum BUCCAL 4 mg Q2H PRN Administration Nicotine Cravings Olanzapine 5 mg 09/18/20 12:01 Olanzapine 5 Mg Tablet PO Q4H PRN agitation Ondansetron HCl 4 mg 09/17/20 20:16 Ondansetron Odt 4 Mg Tab.Rapdis TRANSLINGU Q6H PRN Nausea Pharmacy Consult 1 each 09/17/20 16:27 Consult Rx Perform Med Rec MISCELLANE ONCE PRN Consult order Prazosin HCl 5 mg 10/01/20 21:00 10/02/20 22:25 Prazosin Hcl 5 Mg Capsule PO 5 mg BEDTIME ANGELES Administration Protocol Trazodone HCl 50 mg 09/17/20 18:24 Trazodone Hcl 50 Mg Tablet PO BEDTIME PRN Insomnia Allergies Allergies Allergy/AdvReac Type Severity Reaction Status Date / Time aripiprazole [From [facility]] Allergy Unknown UNKNOWN Unverified 05/26/20 05:24 Assessment & Plan Assessment & Plan (1) PTSD (post-traumatic stress disorder): Status: Acute Code(s): F43.10 - Post-traumatic stress disorder, unspecified Assessment and Plan: -Continue current regime -Three day notice is retracted -Continue to work with pt on safe discharge planning. Will discharge to [facility] on October 06, 2020. -Continue Prazosin 5 mg HS-pt reports it has been helpful. (2) Opioid use disorder, severe, dependence: Status: Acute Code(s): F11.20 - Opioid dependence, uncomplicated Assessment and Plan: -Continue Suboxone Greater than 50% of the session was spent on counseling and/or coordination of care Patient educated on: medication risk/benefits and therapeutic strategies Informed Consent: understands and further education needed Reason for contiued inpatient stay Substantial Risk for: harm to self, harm to others, inability to function and rapid decompensation
[2020-10-03] MEDS: LORazepam 1 MG TABLET PO ×2 (16:48→21:01)
[2020-10-03 18:00] VITALS: BP 141/77; PULSE 92; TEMP 36.7
[2020-10-03 20:58] VITALS: BP 141/77; PULSE 92
[2020-10-03] MEDS: Prazosin HCL 5 MG CAPSULE PO (20:58)
[2020-10-03] MEDS: lamoTRIgine 100 MG TABLET PO (20:59)
[2020-10-04 06:00] VITALS: BP 99/49; PULSE 80; RESP 18; TEMP 36.4; O2SAT 96
[2020-10-04] MEDS: Docusate Sodium 100 MG CAPSULE PO ×2 (08:55→20:24)
[2020-10-04] MEDS: Amphetamine Mixed Salts 10 MG TABLET 15 MG PO ×2 (08:55→12:39)
[2020-10-04] MEDS: Gabapentin 300 MG CAPSULE 600 MG PO ×3 (08:55→20:25)
[2020-10-04] MEDS: Buprenorphine/Naloxone 8/2 mg FILM 2 FILM SUBLINGUAL (08:56)
[2020-10-04] MEDS: Nicotine 21 MG PATCH.TD24 TRANSDERMA (08:56)
[2020-10-04] MEDS: Nicotine Polacrilex 2 MG GUM 4 MG BUCCAL (10:14)
[2020-10-04] MEDS: LORazepam 1 MG TABLET PO ×3 (10:14→20:25)
--- NOTE | 2020-10-04 14:21 | PC.NURSE ---
Pt signed a 3-Day Notice on TuesdayOctober 04, up on TuesdayOctober 08.
--- NOTE | 2020-10-04 15:55 | HO.PSYCHPN ---
Subjective Subjective Date of Service: 10/04/20 Reason For Visit: overdose Subjective Notes: Conditional Voluntary Interim History: Individual reports feeling trapped. She was found to have engaged in auto-erotic self strangulation and is angry that as a result she is on 5 minute checks. She is adamant that this was not a gesture of self harm but rather a way to relieve stress. Medication Compliance: Yes Side effects from medications: No Attending Groups: No Review of Systems Acute medical concerns: No Medical Review of Systems: unchanged Review of Systems Review of Systems Nothing new. Surgery consult pending for anal cysts Constitutional: Reports as per HPI, Denies chills and Denies fever(s) Cardiovascular: Denies chest pain, Denies dyspnea and Denies dyspnea on exertion Respiratory: Denies cough, Denies dyspnea and Denies dyspnea on exertion Gastrointestinal: Denies hematochezia and Denies change in bowel habits Genitourinary: Denies hematuria and Denies difficulty urinating Musculoskeletal: Denies back pain and Denies limited range of motion Reports behavioral changes, Reports confusion, Denies focal weakness, Reports memory loss and Denies convulsions Psychiatric: Reports abnormal sleep pattern, Reports anxiety, Reports behavioral changes, Reports change in appetite, Reports confusion, Reports depression, Reports difficulty concentrating, Reports hopelessness, Reports irritability, Reports anhedonia, Reports memory loss, Reports mood swings, Reports panic attacks, Reports paranoia and Reports suicidal ideation (denies) Mental Status Exam Mental Status Exam Narrative: Trans male to female, facial and body hair evidence with female clothing. Working on shaving all body hair. Irritable and angry. Engaged. Fair hygiene. Pressured speech. Reports mood is much improved and appears bright with some anxiety. No SI. No HI. No psychosis. Insight and judgment fair Patient Appearance: Appropriate Patient Orientation: Person, Place, Time and Situation Level of Consciousness: Alert Patient Behavior: Talkative and Belligerent Mood Description: Constricted and Angry Affect Description: Constricted and Angry Patient Cognition Impaired: No Ability to Follow Directions: Good Speech Pattern: Perseverating and Spontaneous Speech Memory Description: Intact Thought Process: Goal Oriented Thought Content: negative for Suicidal Ideation or negative for Homicidal Ideation Judgement: Fair Diagnostics Vital Signs (24Hr): Vital Signs - 24 hr 10/03/20 18:00 10/03/20 20:58 10/04/20 06:00 Temperature 98.1 F 97.6 F Pulse Rate 92 92 80 Respiratory Rate 18 Blood Pressure 141/77 H 141/77 H 99/49 L Pulse Oximetry 96 Body Mass Index 37.8 Labs Results: 09/19/20 08:29 09/19/20 08:29 Medications Medications Current Medications Generic Name Dose Route Start Last Admin Trade Name Freq PRN Reason Stop Dose Admin Acetaminophen 650 mg 09/17/20 18:24 Acetaminophen 325 Mg Tablet PO Q6H PRN Headache/Pain Mild Scale (1-3) Al Hydroxide/Mg Hydroxide 30 ml 09/17/20 18:24 Magnesium Hydrox/Alum Hydrox 30 Ml Oral.Susp PO Q6H PRN Heartburn/Nausea Albuterol Sulfate 1 puff 09/18/20 11:56 Albuterol Sulfate 90 Mcg 8 Gm Inhaler INHALE RQ6H PRN Wheezing Amphetamine/Dextroamphetamine 15 mg 09/26/20 08:00 10/04/20 12:39 Amphetamine Mixed Salts 10 Mg Tablet PO 15 mg 0800,1300 ANGELES Administration Buprenorphine/Naloxone 2 film 10/01/20 09:20 10/04/20 08:56 Buprenorphine/Naloxone 8/2 Mg Film SUBLINGUAL 2 film DAILY ANGELES Administration Clonidine HCl 0.1 mg 09/17/20 20:15 Clonidine Hcl 0.1 Mg Tablet PO Q6H PRN Opiate Withdrawal Protocol Docusate Sodium 100 mg 09/18/20 11:59 09/26/20 18:31 Docusate Sodium 100 Mg Capsule PO 100 mg BID PRN Administration Constipation Docusate Sodium 100 mg 09/26/20 21:00 10/04/20 08:55 Docusate Sodium 100 Mg Capsule PO 100 mg BID ANGELES Administration Famotidine 20 mg 09/18/20 11:58 Famotidine 20 Mg Tablet PO BID PRN GERD Gabapentin 600 mg 09/26/20 21:00 10/04/20 14:50 Gabapentin 300 Mg Capsule PO 600 mg TID ANGELES Administration Hydroxyzine HCl 100 mg 09/22/20 12:50 10/03/20 21:05 Hydroxyzine Hcl 50 Mg Tablet PO 100 mg Q6H PRN Administration Anxiety Ibuprofen 600 mg 09/18/20 12:00 10/01/20 21:03 Ibuprofen 600 Mg Tablet PO 600 mg Q8H PRN Administration Pain, Mild (Pain Scale 1-3) Lamotrigine 100 mg 09/30/20 21:00 10/03/20 20:59 Lamotrigine 100 Mg Tablet PO 100 mg BEDTIME ANGELES Administration Lorazepam 1 mg 09/18/20 12:02 10/04/20 14:50 Lorazepam 1 Mg Tablet PO 1 mg Q4H PRN Administration agitation Magnesium Citrate 300 ml 10/03/20 16:16 Magnesium Citrate 300 Ml Solution PO ONCE PRN Constipation Magnesium Hydroxide 30 ml 09/17/20 18:24 Milk Of Magnesia 30 Ml Oral.Susp PO DAILY PRN Constipation Nicotine 21 mg 09/18/20 11:00 10/04/20 08:56 Nicotine 21 Mg Patch.Td24 TRANSDERMA 21 mg DAILY ANGELES Administration Nicotine Polacrilex 4 mg 09/19/20 16:43 10/04/20 10:14 Nicotine Polacrilex 2 Mg Gum BUCCAL 4 mg Q2H PRN Administration Nicotine Cravings Olanzapine 5 mg 09/18/20 12:01 Olanzapine 5 Mg Tablet PO Q4H PRN agitation Ondansetron HCl 4 mg 09/17/20 20:16 Ondansetron Odt 4 Mg Tab.Rapdis TRANSLINGU Q6H PRN Nausea Pharmacy Consult 1 each 09/17/20 16:27 Consult Rx Perform Med Rec MISCELLANE ONCE PRN Consult order Prazosin HCl 5 mg 10/01/20 21:00 10/03/20 20:58 Prazosin Hcl 5 Mg Capsule PO 5 mg BEDTIME ANGELES Administration Protocol Trazodone HCl 50 mg 09/17/20 18:24 Trazodone Hcl 50 Mg Tablet PO BEDTIME PRN Insomnia Allergies Allergies Allergy/AdvReac Type Severity Reaction Status Date / Time aripiprazole [From [facility]] Allergy Unknown UNKNOWN Unverified 05/26/20 05:24 Assessment & Plan Assessment & Plan (1) PTSD (post-traumatic stress disorder): Status: Acute Code(s): F43.10 - Post-traumatic stress disorder, unspecified Assessment and Plan: -Continue current regime -Three day notice is retracted -Continue to work with pt on safe discharge planning. [facility] on October [facility], 2020. -Continue Prazosin 5 mg HS-pt reports it has been helpful. (2) Opioid use disorder, severe, dependence: Status: Acute Code(s): F11.20 - Opioid dependence, uncomplicated Assessment and Plan: -Continue Suboxone Assessment and Plan: Continue above treatment plan Greater than 50% of the session was spent on counseling and/or coordination of care Patient educated on: diagnosis and medication risk/benefits Informed Consent: further education needed Reason for contiued inpatient stay Substantial Risk for: inability to function and rapid decompensation
[2020-10-04 18:00] VITALS: BP 144/83; PULSE 104; TEMP 35.9
[2020-10-04] MEDS: hydrOXYzine HCL 50 MG TABLET 100 MG PO (20:25)
[2020-10-04] MEDS: lamoTRIgine 100 MG TABLET PO (20:25)
[2020-10-04 20:26] VITALS: BP 144/83; PULSE 104
[2020-10-04] MEDS: Prazosin HCL 5 MG CAPSULE PO (20:26)
[2020-10-05] MEDS: Gabapentin 300 MG CAPSULE 600 MG PO ×3 (09:13→20:32)
[2020-10-05] MEDS: Amphetamine Mixed Salts 10 MG TABLET 15 MG PO ×2 (09:13→12:17)
[2020-10-05] MEDS: Buprenorphine/Naloxone 8/2 mg FILM 2 FILM SUBLINGUAL (09:13)
[2020-10-05] MEDS: Nicotine 21 MG PATCH.TD24 TRANSDERMA (09:14)
[2020-10-05 09:18] VITALS: BP 112/53; PULSE 74; RESP 18; TEMP 36.5; O2SAT 99
[2020-10-05] MEDS: LORazepam 1 MG TABLET PO ×3 (10:44→20:34)
[2020-10-05] MEDS: Nicotine Polacrilex 2 MG GUM 4 MG BUCCAL ×2 (11:43→16:07)
--- NOTE | 2020-10-05 17:18 | P.PNPSI_ITS ---
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 There have been no further behavioral issues Medication Compliance: Yes Side effects from medications: No Attending Groups: No Review of Systems Acute medical concerns: No Medical Review of Systems: unchanged Review of Systems Review of Systems Nothing new. Surgery consult pending for anal cysts Constitutional: Reports as per HPI, Denies chills and Denies fever(s) Cardiovascular: Denies chest pain, Denies dyspnea and Denies dyspnea on exertion Respiratory: Denies cough, Denies dyspnea and Denies dyspnea on exertion Gastrointestinal: Denies hematochezia and Denies change in bowel habits Genitourinary: Denies hematuria and Denies difficulty urinating Musculoskeletal: Denies back pain and Denies limited range of motion Reports behavioral changes, Reports confusion, Denies focal weakness, Reports memory loss and Denies convulsions Psychiatric: Reports abnormal sleep pattern, Reports anxiety, Reports behavioral changes, Reports change in appetite, Reports confusion, Reports depression, Reports difficulty concentrating, Reports hopelessness, Reports irritability, Reports anhedonia, Reports memory loss, Reports mood swings, Reports panic attacks, Reports paranoia and Reports suicidal ideation (denies) Mental Status Exam Mental Status Exam Narrative: Trans male to female, facial and body hair evidence with female clothing. Working on shaving all body hair. Irritable and angry. Engaged. Fair hygiene. Pressured speech. Reports mood is much improved and appears bright with some anxiety. No SI. No HI. No psychosis. Insight and judgment fair Patient Appearance: Appropriate Patient Orientation: Person, Place, Time and Situation Level of Consciousness: Alert Patient Behavior: Guarded Mood Description: Constricted and Angry Affect Description: Constricted and Angry Patient Cognition Impaired: No Ability to Follow Directions: Good Speech Pattern: Perseverating and Spontaneous Speech Memory Description: Intact Thought Content: negative for Suicidal Ideation or negative for Homicidal Ideation Diagnostics Vital Signs (24Hr): Vital Signs - 24 hr 10/04/20 18:00 10/04/20 20:26 10/05/20 09:18 Temperature 96.7 F L 97.7 F Pulse Rate 104 H 104 H 74 Respiratory Rate 18 Blood Pressure 144/83 H 144/83 H 112/53 L Pulse Oximetry 99 Body Mass Index 37.8 Labs Results: 09/19/20 08:29 09/19/20 08:29 Medications Medications Current Medications Generic Name Dose Route Start Last Admin Trade Name Freq PRN Reason Stop Dose Admin Acetaminophen 650 mg 09/17/20 18:24 Acetaminophen 325 Mg Tablet PO Q6H PRN Headache/Pain Mild Scale (1-3) Al Hydroxide/Mg Hydroxide 30 ml 09/17/20 18:24 Magnesium Hydrox/Alum Hydrox 30 Ml Oral.Susp PO Q6H PRN Heartburn/Nausea Albuterol Sulfate 1 puff 09/18/20 11:56 Albuterol Sulfate 90 Mcg 8 Gm Inhaler INHALE RQ6H PRN Wheezing Amphetamine/Dextroamphetamine 15 mg 09/26/20 08:00 10/05/20 12:17 Amphetamine Mixed Salts 10 Mg Tablet PO 15 mg 0800,1300 ANGELES Administration Buprenorphine/Naloxone 2 film 10/01/20 09:20 10/05/20 09:13 Buprenorphine/Naloxone 8/2 Mg Film SUBLINGUAL 2 film DAILY ANGELES Administration Clonidine HCl 0.1 mg 09/17/20 20:15 Clonidine Hcl 0.1 Mg Tablet PO Q6H PRN Opiate Withdrawal Protocol Docusate Sodium 100 mg 09/18/20 11:59 09/26/20 18:31 Docusate Sodium 100 Mg Capsule PO 100 mg BID PRN Administration Constipation Docusate Sodium 100 mg 09/26/20 21:00 10/05/20 09:18 Docusate Sodium 100 Mg Capsule PO Not Given BID ANGELES Famotidine 20 mg 09/18/20 11:58 Famotidine 20 Mg Tablet PO BID PRN GERD Gabapentin 600 mg 09/26/20 21:00 10/05/20 14:35 Gabapentin 300 Mg Capsule PO 600 mg TID ANGELES Administration Hydroxyzine HCl 100 mg 09/22/20 12:50 10/04/20 20:25 Hydroxyzine Hcl 50 Mg Tablet PO 100 mg Q6H PRN Administration Anxiety Ibuprofen 600 mg 09/18/20 12:00 10/01/20 21:03 Ibuprofen 600 Mg Tablet PO 600 mg Q8H PRN Administration Pain, Mild (Pain Scale 1-3) Lamotrigine 100 mg 09/30/20 21:00 10/04/20 20:25 Lamotrigine 100 Mg Tablet PO 100 mg BEDTIME ANGELES Administration Lorazepam 1 mg 09/18/20 12:02 10/05/20 16:07 Lorazepam 1 Mg Tablet PO 1 mg Q4H PRN Administration agitation Magnesium Citrate 300 ml 10/03/20 16:16 Magnesium Citrate 300 Ml Solution PO ONCE PRN Constipation Magnesium Hydroxide 30 ml 09/17/20 18:24 Milk Of Magnesia 30 Ml Oral.Susp PO DAILY PRN Constipation Nicotine 21 mg 09/18/20 11:00 10/05/20 09:14 Nicotine 21 Mg Patch.Td24 TRANSDERMA 21 mg DAILY ANGELES Administration Nicotine Polacrilex 4 mg 09/19/20 16:43 10/05/20 16:07 Nicotine Polacrilex 2 Mg Gum BUCCAL 4 mg Q2H PRN Administration Nicotine Cravings Olanzapine 5 mg 09/18/20 12:01 Olanzapine 5 Mg Tablet PO Q4H PRN agitation Ondansetron HCl 4 mg 09/17/20 20:16 Ondansetron Odt 4 Mg Tab.Rapdis TRANSLINGU Q6H PRN Nausea Pharmacy Consult 1 each 09/17/20 16:27 Consult Rx Perform Med Rec MISCELLANE ONCE PRN Consult order Prazosin HCl 5 mg 10/01/20 21:00 10/04/20 20:26 Prazosin Hcl 5 Mg Capsule PO 5 mg BEDTIME ANGELES Administration Protocol Trazodone HCl 50 mg 09/17/20 18:24 Trazodone Hcl 50 Mg Tablet PO BEDTIME PRN Insomnia Allergies Allergies Allergy/AdvReac Type Severity Reaction Status Date / Time aripiprazole [From [facility]] Allergy Unknown UNKNOWN Unverified 05/26/20 05:24 Assessment & Plan Assessment & Plan (1) PTSD (post-traumatic stress disorder): Status: Acute Code(s): F43.10 - Post-traumatic stress disorder, unspecified Assessment and Plan: -Continue current regime -Three day notice is retracted -Continue to work with pt on safe discharge planning. Will discharge to [facility] on October 06, 2020. -Continue Prazosin 5 mg HS-pt reports it has been helpful. (2) Opioid use disorder, severe, dependence: Status: Acute Code(s): F11.20 - Opioid dependence, uncomplicated Assessment and Plan: -Continue Suboxone Assessment and Plan: Continue above treatment plan Greater than 50% of the session was spent on counseling and/or coordination of care Patient educated on: diagnosis and medication risk/benefits Informed Consent: further education needed Reason for contiued inpatient stay Substantial Risk for: rapid decompensation
[2020-10-05 18:00] VITALS: BP 145/73; PULSE 94; TEMP 36.7
[2020-10-05 20:31] VITALS: BP 145/73; PULSE 94
[2020-10-05] MEDS: Prazosin HCL 5 MG CAPSULE PO (20:31)
[2020-10-05] MEDS: lamoTRIgine 100 MG TABLET PO (20:32)
[2020-10-05] MEDS: hydrOXYzine HCL 50 MG TABLET 100 MG PO (20:34)
[2020-10-06] MEDS: LORazepam 1 MG TABLET PO ×2 (00:11→09:23)
[2020-10-06] MEDS: Amphetamine Mixed Salts 10 MG TABLET 15 MG PO (08:28)
[2020-10-06] MEDS: Buprenorphine/Naloxone 8/2 mg FILM 2 FILM SUBLINGUAL (08:29)
[2020-10-06] MEDS: Gabapentin 300 MG CAPSULE 600 MG PO (08:29)
--- NOTE | 2020-10-06 10:03 | P.DS_ITS ---
DS: Providers Provider Date of Service: 10/06/20 Date of admission: 09/17/20 18:24 Date of discharge: 10/06/20 Primary care physician: Lilian Francis DNP [facility] Admitting clinician: Vero Rosario Attending physician on admission: Erasto Gamboa Consults: 09/18/20 12:00 Addiction Medicine Routine Consulting Provider: Laisha Huff Reason for consultation: Pt interested in CCC and Suboxone Has provider been notified: No 09/26/20 12:06 Consult to General Surgery Routine Consulting Provider: Rae Capps Reason for consultation: cyst near anus with pain, warmth, edema Has provider been notified: No Attending physician on discharge: Erasto Gamboa Discharging clinician: Vero Rosario DS: Diagnosis Discharge Diagnosis (1) PTSD (post-traumatic stress disorder): Start date: 09/18/20 Status: Acute (2) Opioid use disorder, severe, dependence: Start date: 09/18/20 Status: Acute DS: Medications Discharge Medications Home Medications: Home Medications Medication Instructions Recorded Confirmed buprenorphine 8 mg-naloxone 2 mg 2 strip SUBLINGUAL DAILY 09/17/20 09/17/20 sublingual film (Suboxone) Previous Rx's Medication Instructions Recorded albuterol sulfate 90 mcg/actuation 1 puff INHALATION RQ6H PRN #1 g 10/03/20 aerosol inhaler (Ventolin HFA) clonidine HCl 0.1 mg tablet 0.1 mg PO Q6H PRN #30 tab 10/03/20 dextroamphetamine-amphetamine 10 15 mg PO 0800,1300 #14 tab 10/03/20 mg tablet docusate sodium 100 mg capsule 100 mg PO BID PRN #60 cap 10/03/20 famotidine 20 mg tablet 20 mg PO BID PRN #60 tab 10/03/20 gabapentin 300 mg capsule 600 mg PO TID #42 cap 10/03/20 hydroxyzine HCl 50 mg tablet 100 mg PO Q6H PRN #60 tab 10/03/20 lamotrigine 100 mg tablet 100 mg PO BEDTIME #30 tab 10/03/20 lisdexamfetamine 30 mg capsule 30 mg PO DAILY #14 cap 10/03/20 (Vyvanse) lorazepam 1 mg tablet 1 mg PO Q4H PRN #7 tab 10/03/20 naloxone 4 mg/actuation nasal 4 mg INTRANASAL Q2M PRN #2 ea 10/03/20 spray (Narcan) polyethylene glycol 3350 17 17 g PO DAILY PRN #119 g 10/03/20 gram/dose oral powder (Miralax) prazosin 5 mg capsule 1 cap PO BEDTIME #30 cap 10/03/20 trazodone 50 mg tablet 50 mg PO BEDTIME PRN #7 tab 10/03/20 Mental Status Exam Mental Status Exam Narrative: Trans male to female, facial and body hair evidence with female clothing. Working on shaving all body hair. Irritable and angry. Engaged. Fair hygiene. Pressured speech. Reports mood is much improved and appears bright with some anxiety. No SI. No HI. No psychosis. Insight and judgment fair Patient Appearance: Appropriate Patient Orientation: Person, Place, Time and Situation Level of Consciousness: Alert Patient Behavior: Guarded Mood Description: Constricted and Angry Affect Description: Constricted and Angry Patient Cognition Impaired: No Ability to Follow Directions: Good Speech Pattern: Perseverating and Spontaneous Speech Memory Description: Intact Thought Content: negative for Suicidal Ideation or negative for Homicidal Ideation DS: Summary Hospital Course Hospital Course: Pt admitted on a conditional voluntary with filing and retractions of three day notices throughout her admission. Pt was assisted with withdrawl symptom mgt and re-establishement of psychopharmacology regime. Lamictal was titrated to 100 mg and will need to continue in out patient care as by history 200 mg has had the best symptom management. Adderall 15 mg bid was initiated for ADHD as hospital pharmacy does not stock Vyvanse. Vyvanse was prescribed upon discharge and approved by insurance, so Adderall was stopped. Pt struggled with boundaries while in patient. 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 She became angry when told that this was a boundary violation and could not proceed and she proceeded with plans irregardless. Other patient asked for assistance in declining her plans to live with them and provide NEUROLOGIST services. Pt before discharge was reported to have constructed an area in her room for sexual asphyxia as she was bored with milieu activites. This act she assured was not an act of suicidality, but of erotic intent. Pt accepted admission to [facility] for ongoing support and structure for her addiction and psychiatric issues. Upon discharge she was non suicidal, non manic, non psychotic and willing to trial GRIT although she remained irritated that she was not allowed to pursue other patients for housing/work related matters. Time spent discussing smoking cessation with patient: 3 to 10 minutes Status at Discharge Cognitive/behavioral status at discharge: alert, oriented, non psychotic, non- manic, denies SI plan or intent. Functional status at discharge: independent ambulation Overall status at discharge: patient is progressing back to baseline Time Spent with Patient Time attestation: Total time spent providing and/or coordinating discharge services:40 Time spent: Greater than 30 minutes Discharge Plan Discharge Anticipated Discharge Date/Time: 10/06/20 11:00 Patient Disposition: Xfer Inpatient Rehab Fac Discharge Diagnosis: Bipolar Disorder ADHD PTSD Opiate Use Disorder, Severe, On Suboxone Therapy Cannabis Use Disorder, Severe Psychoactive Stimulant Use Disorder, Cocaine Referrals: Suboxone: [facility] [Other] - 10/09/20 2:00 pm Residential Program: [facility] [Other] - 1 Week (This program provides therapy and prescriber. ) PCP: Lilian Francis DNP, [facility]ICAL INSURANCE COLLECTOR ([facility]) [Other] - 10/27/20 2:00 pm Therapy & Medicaion: [facility] [Other] - 1 Week (If you decide you want a separate therapist from your program or you need services because you left the program call the above number. ) José Sandoval MD [Physician] - 3 Weeks (Tuesday, November 03 3pm. Call [phone] to see if you may be seen earlier due to cancellations. Email sent to [email or web address]) Discharge Medications: New clonidine HCl 0.1 mg Tablet 0.1 mg PO Q6H PRN (Reason: Opiate Withdrawal) Qty: 30 RF: 0 trazodone 50 mg Tablet 50 mg PO BEDTIME PRN (Reason: Insomnia) Qty: 7 RF: 4 dextroamphetamine-amphetamine 10 mg Tablet 15 mg PO 0800,1300 Qty: 14 RF: 0 hydroxyzine HCl 50 mg Tablet 100 mg PO Q6H PRN (Reason: Anxiety) Qty: 60 RF: 0 gabapentin 300 mg Capsule 600 mg PO TID Qty: 42 RF: 4 lorazepam 1 mg Tablet 1 mg PO Q4H PRN (Reason: agitation) Qty: 7 RF: 4 albuterol sulfate [Ventolin HFA] 90 mcg/actuation Hfa Aerosol Inhaler 1 puff inhalation RQ6H PRN (Reason: Wheezing) Qty: 1 RF: 0 lamotrigine 100 mg Tablet 100 mg PO BEDTIME Qty: 30 RF: 0 famotidine 20 mg Tablet 20 mg PO BID PRN (Reason: GERD) Qty: 60 RF: 0 docusate sodium 100 mg Capsule 100 mg PO BID PRN (Reason: Constipation) Qty: 60 RF: 0 Narcan 4 mg/actuation spray,non-aerosol 4 mg intranasal Q2M PRN (Reason: opioid overdose) Qty: 2 RF: 0 Vyvanse 30 mg capsule 30 mg PO DAILY Qty: 14 RF: 0 polyethylene glycol 3350 [Miralax] 17 gram/dose powder 17 g PO DAILY PRN (Reason: constipation) Qty: 119 RF: 0 Continued buprenorphine-naloxone [Suboxone] 8-2 mg film 2 strip sublingual DAILY RF: 0 prazosin 5 mg capsule 1 cap PO BEDTIME Qty: 30 RF: 0 Discontinued hydroxyzine HCl 50 mg tablet 1 tab PO QID PRN (Reason: anxiety) RF: 0 gabapentin 300 mg capsule 1 cap PO Q8H RF: 0 lamotrigine 25 mg tablet 50 mg PO DAILY RF: 0 nicotine (polacrilex) 2 mg Gum 4 mg buccal Q2H PRN (Reason: Nicotine Cravings) 15 Days Qty: 60 RF: 0 nicotine 21 mg/24 hr Patch 24 Hour 21 mg transdermal DAILY 30 Days Qty: 30 RF: 0 ibuprofen 600 mg Tablet 600 mg PO Q8H PRN (Reason: Pain, Mild (Pain Scale 1-3)) 15 Days Qty: 30 RF: 0 Discharge Orders: Discharge Order (Routine); Ordered 10/06/20 Ordered By: Vero Rosario Diet: advance to usual diet Activity on Discharge: As tolerated Stand Alone Forms: Patient Portal Discharge page, Community Support Care Plan Goals: Mood Stabilization Sobriety Health Concerns: Bipolar Disorder, ADHD, PTSD Opiate, Cocaine, Cannabis use disorder-on Suboxone Therapy Plan of Treatment: Transfer to [facility] program Take medications as directed Attend scheduled appointments Assessment: Alert, non-psychotic, non suicidal, no sx of farzana Discharge Date/Time: 10/06/20 10:00
== END 2020-10-06 10:00 | DRG 755 ==
LOC: HO.ED 09-17 17:44 → HO.PM5 09-17 18:33
PROVIDERS: Admitting Provider Psychiatry & Neurology Psychiatry; Emergency Provider Emergency Medicine; Visit Provider Clinical Nurse Specialist Psychiatric/Mental Health, Adult
DX: F43.10 Post-traumatic stress disorder, unspecified (principal); R45.851 Suicidal ideations; F11.20 Opioid dependence, uncomplicated; F17.210 Nicotine dependence, cigarettes, uncomplicated; F64.0 Transsexualism; K62.89 Other specified diseases of anus and rectum; F15.10 Other stimulant abuse, uncomplicated; Z71.6 Tobacco abuse counseling; F90.9 Attention-deficit hyperactivity disorder, unspecified type; F12.20 Cannabis dependence, uncomplicated; Z20.822 Contact with and (suspected) exposure to COVID-19; Z79.899 Other long term (current) drug therapy
CPT/HCPCS: 36415; 80053; 80061; 80307; 82306; 82607; 82746; 83036; 83540; 84443; 85025; 86780; 87389; 87635; 93005; 99285

== ENCOUNTER 2020-10-18 16:18 | Emergency (ER) | payer MEDICAID, SELFPAY ==
[2020-10-18 16:28] VITALS: BP 146/88; PULSE 84; RESP 16; TEMP 37; O2SAT 98; BMI 37.6
--- NOTE | 2020-10-18 16:52 | ED.GENADULT ---
HPI - General Adult General Chief complaint: General Medical Stated complaint: withdrawal Time Seen by Provider: 10/18/20 16:51 Source: patient Mode of arrival: ambulatory Limitations: no limitations History of Present Illness HPI narrative: 29-year-old trans male to female knee Emil but likes to be called Mahendra who presents ambulatory with program staff for reports to me that today has some nausea and vomiting after day at the pool. States over the past several weeks have been weaning down on the lorazepam she was initially on 1 mg q.4 hours and has been on 1 mg daily for the past several days has been doing well with this today would not able to fill her prescription as the pharmacy was closed and thought she may be in withdrawal from the lorazepam. Current dosing is 1 mg a day, otherwise no symptoms of muscle spasms, anxiety attacks, insomnia, seizure-like activity, abnormal body sensation, myalgias, delirium however does have mild nausea and episode of vomiting today. Overall aside from this has been doing well no recent travel, sick contact. Onset (ago): day(s) Radiation: non-radiation Severity: mild Quality: aching Pain Consistency: constant Exacerbating factors: none Associated symptoms: denies other symptoms Treatments prior to arrival: none Related Data Home Medications Medication Instructions Recorded Confirmed buprenorphine 8 mg-naloxone 2 mg 2 strip SUBLINGUAL DAILY 09/17/20 09/17/20 sublingual film (Suboxone) Previous Rx's Medication Instructions Recorded albuterol sulfate 90 mcg/actuation 1 puff INHALATION RQ6H PRN #1 g 10/03/20 aerosol inhaler (Ventolin HFA) clonidine HCl 0.1 mg tablet 0.1 mg PO Q6H PRN #30 tab 10/03/20 dextroamphetamine-amphetamine 10 15 mg PO 0800,1300 #14 tab 10/03/20 mg tablet docusate sodium 100 mg capsule 100 mg PO BID PRN #60 cap 10/03/20 famotidine 20 mg tablet 20 mg PO BID PRN #60 tab 10/03/20 gabapentin 300 mg capsule 600 mg PO TID #42 cap 10/03/20 hydroxyzine HCl 50 mg tablet 100 mg PO Q6H PRN #60 tab 10/03/20 lamotrigine 100 mg tablet 100 mg PO BEDTIME #30 tab 10/03/20 lisdexamfetamine 30 mg capsule 30 mg PO DAILY #14 cap 10/03/20 (Vyvanse) lorazepam 1 mg tablet 1 mg PO Q4H PRN #7 tab 10/03/20 naloxone 4 mg/actuation nasal 4 mg INTRANASAL Q2M PRN #2 ea 10/03/20 spray (Narcan) polyethylene glycol 3350 17 17 g PO DAILY PRN #119 g 10/03/20 gram/dose oral powder (Miralax) prazosin 5 mg capsule 1 cap PO BEDTIME #30 cap 10/03/20 trazodone 50 mg tablet 50 mg PO BEDTIME PRN #7 tab 10/03/20 Allergies Allergy/AdvReac Type Severity Reaction Status Date / Time aripiprazole [From ABILIFY] Allergy Unknown UNKNOWN Verified 10/18/20 16:33 Review of Systems Review of Systems: Constitutional: No Weight loss, No Fever, No Chills, No Night Sweats, No Fatigue, No Malaise ENT/Mouth: No Hearing loss, No Ear Pain, No Nasal Congestion, No Sinus Pain, No Hoarseness, No sore throat, No Rhinorrhea, No Swallowing Difficulty Eyes: No Eye Pain, No Swelling, No Redness, No Foreign Body, No Discharge, No Vision Changes Cardiovascular: No Chest Pain, No SOB, No Dyspnea on Exertion, No Orthopnea, No Edema, No Palpitations Respiratory: No Cough, No Sputum, No Wheezing, No Smoke Exposure, No Dyspnea Gastrointestinal: + Nausea, + Vomiting, No Diarrhea, No Constipation, No abdominal Pain, No Hematochezia, No Melena Genitourinary: no irregular bleeding, No Dysuria, No Urinary Frequency, No Hematuria, No Urinary Incontinence, No Urgency, No Flank Pain, No Urinary Flow Changes, No Hesitancy Musculoskeletal: No joint pain, No Myalgias, No Joint Swelling Skin: No Skin Lesions, No rash Neuro: No Weakness, No Numbness, No Paresthesias, No Loss of Consciousness, No Dizziness, No Headache Psych: No Anxiety/Panic, No Depression, No SI/HI/AH/VH, No Social Issues Heme/Lymph: No Bruising, No Bleeding,No Lymphadenopathy Endocrine: No Polyuria, No Polydipsia, No Temperature Intolerance Yes all other systems are reviewed and are negative PMFSH Past Medical History Medical History Abscess of left upper extremity ADHD Anxiety Asthma Borderline personality disorder Cocaine substance abuse Depression HTN (hypertension) IBS (irritable bowel syndrome) Opiate misuse Opioid use disorder, severe, dependence Perianal cyst PTSD (post-traumatic stress disorder) Tibial torsion, bilateral Social History Social History Household Members: None Housing: Homeless Do you presently have visiting nurse or other home services: No Alcohol intake: never Patient Tobacco Use Status: Current everyday Tobacco user Tobacco use type: Cigarette Cigarette Packs Per Day: 1 Cigarettes Per Day: 20.0 e-Cigarette/Vaping Use: Never Used Second Hand Smoke Exposure: Yes Use of substances other than those prescribed or required for medical reasons: No Substance Use Type: Crack/Cocaine, Heroin and Methamphetamine Substance Use Frequency: Chronic Longstanding Substance Use Frequency Other:: Remission x1 month Last Used Substance: Weeks (ago) Advance Directives: No Advance Directives Information Provided: Yes service: No Sexual orientation: Did not discuss Physical Exam Vital Signs: Vital Signs: Last Vital Signs Temp 98.6 F 10/18/20 16:28 Pulse 86 10/18/20 16:54 Resp 19 10/18/20 16:54 BP 137/86 10/18/20 16:54 Pulse Ox 99 10/18/20 16:54 Body Mass Index 37.6 Const: Other: Found patient resting comfortably with eyes closed and easy to arouse to her name General: cooperative and healthy appearing; No acute distress or intoxicated appearing Nutritional Appearance: average body habitus Orientation/consciousness: patient oriented x3 HENMT: Head: Yes normal to inspection Ears: hearing grossly normal bilaterally Eyes: General: appearance normal, both eyes and all related structures Visual James: normal visual james by confrontation Neck: Neck: Yes normal visual inspection, No positive Brudzinski's sign, No positive Kernig's sign and No tender Thyroid: Thyroid normal Chest: Chest palpation & inspection: normal inspection of the chest Resp: Effort & Inspection: normal respiratory effort Cardio: Jugular venous distension: no JVD Palpation: normal PMI Rate: regular rate Heart sounds: S1 normal heart sound present and S2 normal heart sound present GI: Inspection: Yes normal to inspection Percussion: Yes normal to percussion Auscultation: normal bowel sounds : General: Yes no CVA tenderness Back/Spine/Pelvis: Back: no CVA tenderness Skin: General skin exam: no rashes or lesions noted Neuro: General: patient oriented x3 and moves all extremities Cranial nerves: Yes CN's II-XII intact bilaterally Cognition (Neuro): normal cognition Gait exam (Neuro): Normal gait present Motor exam (neuro): 5/5 motor strength present throughout Sensory Exam: Normal double simultaneous stimulation for sensation Extrem: General: Yes normal to inspection Course Reevaluation(s) Reevaluation #1: Currently on 1 mg lorazepam was given today's dose that she missed. Otherwise well nontoxic appearing. Does not appear to be any withdrawal. Did have episode of nausea and vomiting which was acute question underlying mild gastroenteritis otherwise no complaint abdominal pain has been tolerating p.o. intake well here. Produce urine and ambulatory status with gait. Tolerating p.o. intake here. No signs or symptoms suggest benzodiazepine withdrawal syndrome. Labs reviewed with the patient as well as staff will follow-up with outpatient provider. Feels comfortable plan. Stable for discharge. Medical Decision Making Lab Data Result diagrams: 10/18/20 17:35 10/18/20 17:35 Labs: Lab Results 10/18/20 10/18/20 10/18/20 Range/Units 17:35 17:35 17:35 WBC 6.8 (4.8-10.8) X10*3/uL RBC 4.30 L (4.60-5.80) X10*6/uL Hgb 12.2 L (14.0-18.0) g/dl Hct 37.5 L (42-52) % MCV 87.2 (80-98) fL MCH 28.4 (27.0-33.0) pg MCHC 32.5 (31.0-36.0) g/dl RDW 13.5 (11.0-16.0) % Plt Count 240 (160-400) X10*3/uL MPV 9.4 (9.4-12.4) fL Immature Gran % (Auto) 0.1 (0.0-0.4) % Neut % (Auto) 40.4 L (45-73) % Lymph % (Auto) 45.3 H (20-40) % Crisp % (Auto) 9.5 (2-11) % Eos % (Auto) 4.1 H (0-4) % Baso % (Auto) 0.6 (0-2) % Lymph # (Auto) 3.1 (1.2-4.9) X10*3/uL Crisp # (Auto) 0.7 (0.1-1.2) X10*3/uL Eos # (Auto) 0.3 (0.0-0.4) X10*3/uL Baso # (Auto) 0.0 (0.0-0.2) X10*3/uL Abs Immat Gran (auto) 0.01 (0.00-0.03) X10*3/uL Absolute Neuts (auto) 2.8 (2.0-8.3) X10*3/uL Absolute Nucleated RBC 0.000 (0.0-0.012) X10*3/uL Nucleated RBC % (auto) 0.0 (0.0-0.2) /100WBC Sodium 140 (135-145) mmol/L Potassium 4.4 (3.3-5.1) mmol/L Chloride 107 (96-108) mmol/L Carbon Dioxide 23 (22-29) mmol/L Anion Gap 14 (12-20) BUN 12 (9-16) mg/dL Creatinine 0.77 (0.5-1.4) mg/dL Estim Creat Clear Calc 185.1 Estimated GFR > 60 Random Glucose 84 (60-115) mg/dL Calcium 9.1 (8.4-10.2) mg/dL Total Bilirubin 0.6 (0.0-1.0) mg/dL AST 73 H (5-37) U/L ALT 134 H (0-40) U/L Alkaline Phosphatase 72 D (39-117) U/L Total Protein 7.0 (6.5-8.0) g/dL Albumin 4.0 (3.5-5.0) g/dL Urine Color YELLOW Urine Appearance CLEAR Urine pH 5.5 (5.0-8.0) Ur Specific [place] <= 1.005 (1.005-1.025) Urine Protein NEG (NEG-TRACE) MG/DL Urine Glucose (UA) NEG (NEG) MG/DL Urine Ketones NEG (NEG) MG/DL Urine Blood NEG (NEG) Urine Nitrite NEG (NEG) Ur Leukocyte Esterase NEG (NEG) Urine RBC 0 (0) /HPF Urine WBC 0 (0-4) /HPF Ur Squamous Epith Cells NONE /LPF Urine Bacteria NONE /LPF Urine Opiates Screen (Not Detect) Urine Fentanyl Screen (Not Detect) Ur Barbiturates Screen (Not Detect) Ur Phencyclidine Scrn (Not Detect) Ur Amphetamines Screen (Not Detect) U Benzodiazepines Scrn (Not Detect) Urine Cocaine Screen (Not Detect) U Marijuana (THC) Screen (Not Detect) 10/18/20 Range/Units 17:35 WBC (4.8-10.8) X10*3/uL RBC (4.60-5.80) X10*6/uL Hgb (14.0-18.0) g/dl Hct (42-52) % MCV (80-98) fL MCH (27.0-33.0) pg MCHC (31.0-36.0) g/dl RDW (11.0-16.0) % Plt Count (160-400) X10*3/uL MPV (9.4-12.4) fL Immature Gran % (Auto) (0.0-0.4) % Neut % (Auto) (45-73) % Lymph % (Auto) (20-40) % Crisp % (Auto) (2-11) % Eos % (Auto) (0-4) % Baso % (Auto) (0-2) % Lymph # (Auto) (1.2-4.9) X10*3/uL Crisp # (Auto) (0.1-1.2) X10*3/uL Eos # (Auto) (0.0-0.4) X10*3/uL Baso # (Auto) (0.0-0.2) X10*3/uL Abs Immat Gran (auto) (0.00-0.03) X10*3/uL Absolute Neuts (auto) (2.0-8.3) X10*3/uL Absolute Nucleated RBC (0.0-0.012) X10*3/uL Nucleated RBC % (auto) (0.0-0.2) /100WBC Sodium (135-145) mmol/L Potassium (3.3-5.1) mmol/L Chloride (96-108) mmol/L Carbon Dioxide (22-29) mmol/L Anion Gap (12-20) BUN (9-16) mg/dL Creatinine (0.5-1.4) mg/dL Estim Creat Clear Calc Estimated GFR Random Glucose (60-115) mg/dL Calcium (8.4-10.2) mg/dL Total Bilirubin (0.0-1.0) mg/dL AST (5-37) U/L ALT (0-40) U/L Alkaline Phosphatase (39-117) U/L Total Protein (6.5-8.0) g/dL Albumin (3.5-5.0) g/dL Urine Color Urine Appearance Urine pH (5.0-8.0) Ur Specific [place] (1.005-1.025) Urine Protein (NEG-TRACE) MG/DL Urine Glucose (UA) (NEG) MG/DL Urine Ketones (NEG) MG/DL Urine Blood (NEG) Urine Nitrite (NEG) Ur Leukocyte Esterase (NEG) Urine RBC (0) /HPF Urine WBC (0-4) /HPF Ur Squamous Epith Cells /LPF Urine Bacteria /LPF Urine Opiates Screen Not Detected (Not Detect) Urine Fentanyl Screen Not Detected (Not Detect) Ur Barbiturates Screen Not Detected (Not Detect) Ur Phencyclidine Scrn Not Detected (Not Detect) Ur Amphetamines Screen POSITIVE H (Not Detect) U Benzodiazepines Scrn Not Detected (Not Detect) Urine Cocaine Screen Not Detected (Not Detect) U Marijuana (THC) Screen Not Detected (Not Detect) Discharge Plan Discharge Clinical Impression: Nausea & vomiting Patient Disposition: Home, Self-Care Instructions: Acute Nausea and Vomiting (ED) Additional Instructions: Rest, drink plenty of fluids Gradually increase diet as tolerated Taking medications prescribed Follow up with outpatient providers on Tuesday Return to emergency room if any concerns or worsening symptoms Thank you Prescriptions: No Action buprenorphine-naloxone [Suboxone] 8-2 mg film 2 strip sublingual DAILY RF: 0 clonidine HCl 0.1 mg Tablet 0.1 mg PO Q6H PRN (Reason: Opiate Withdrawal) Qty: 30 RF: 0 trazodone 50 mg Tablet 50 mg PO BEDTIME PRN (Reason: Insomnia) Qty: 7 RF: 4 dextroamphetamine-amphetamine 10 mg Tablet 15 mg PO 0800,1300 Qty: 14 RF: 0 hydroxyzine HCl 50 mg Tablet 100 mg PO Q6H PRN (Reason: Anxiety) Qty: 60 RF: 0 gabapentin 300 mg Capsule 600 mg PO TID Qty: 42 RF: 4 lorazepam 1 mg Tablet 1 mg PO Q4H PRN (Reason: agitation) Qty: 7 RF: 4 albuterol sulfate [Ventolin HFA] 90 mcg/actuation Hfa Aerosol Inhaler 1 puff inhalation RQ6H PRN (Reason: Wheezing) Qty: 1 RF: 0 lamotrigine 100 mg Tablet 100 mg PO BEDTIME Qty: 30 RF: 0 famotidine 20 mg Tablet 20 mg PO BID PRN (Reason: GERD) Qty: 60 RF: 0 docusate sodium 100 mg Capsule 100 mg PO BID PRN (Reason: Constipation) Qty: 60 RF: 0 Narcan 4 mg/actuation spray,non-aerosol 4 mg intranasal Q2M PRN (Reason: opioid overdose) Qty: 2 RF: 0 Vyvanse 30 mg capsule 30 mg PO DAILY Qty: 14 RF: 0 polyethylene glycol 3350 [Miralax] 17 gram/dose powder 17 g PO DAILY PRN (Reason: constipation) Qty: 119 RF: 0 prazosin 5 mg capsule 1 cap PO BEDTIME Qty: 30 RF: 0 Referrals: ED Physician,Generic [Emergency Provider] - 2 days
[2020-10-18 16:54] VITALS: BP 137/86; PULSE 86; RESP 19; O2SAT 99
[2020-10-18] MEDS: LORazepam 1 MG TABLET PO (17:25)
[2020-10-18] MEDS: 0.9 % Sodium Chloride 1,000 ML 999 ML IV (17:38)
[2020-10-18 17:42] LABS: MANUAL DIFF FLAG NO
[2020-10-18 17:43] LABS: Basophils Percent Auto 0.6 % (0-2); Eosinophils Absolute Auto 0.3 X10*3/uL (0.0-0.4); Eosinophils Percent Auto 4.1 % (0-4); Glucose Urine UA NEG (NEG); Hematocrit 37.5 % (42-52); Hemoglobin 12.2 g/dl (14.0-18.0); Imm Gran Abs Auto 0.01 X10*3/uL (0.00-0.03); Imm Gran Pct Auto 0.1 % (0.0-0.4); Leukocyte Esterase Urine NEG (NEG); Lymphocytes Absolute Auto 3.1 X10*3/uL (1.2-4.9); Lymphocytes Percent Auto 45.3 % (20-40); Mean Corpuscular HGB Conc 32.5 g/dl (31.0-36.0); Mean Corpuscular Hemoglobin 28.4 pg (27.0-33.0); Mean Corpuscular Volume 87.2 fL (80-98); Mean Platelet Volume 9.4 fL (9.4-12.4); Monocytes Absolute Auto 0.7 X10*3/uL (0.1-1.2); Monocytes Percent Auto 9.5 % (2-11); Neutrophils Absolute Auto 2.8 X10*3/uL (2.0-8.3); Neutrophils Percent Auto 40.4 % (45-73); Nitrite Urine NEG (NEG); PH 5.5 (5.0-8.0); Platelet Count 240 X10*3/uL (160-400); Red Cell Distribution Width 13.5 % (11.0-16.0); Specific Gravity - Urine <= 1.005 (1.005-1.025); Urine Blood NEG (NEG); Urine Ketones NEG (NEG); Urine Protein NEG (NEG-TRACE); White Blood Count 6.8 X10*3/uL (4.8-10.8)
[2020-10-18 17:44] LABS: Appearance Urine CLEAR; Color Urine YELLOW
[2020-10-18 17:50] LABS: RBC Urine 0 /HPF (0); WBC Urine 0 /HPF (0-4)
[2020-10-18 18:13] LABS: Alanine Aminotransferase 134 U/L (0-40); Alkaline Phosphatase 72 U/L (39-117); Anion Gap 14 (12-20); Aspartate Amino Transferase 73 U/L (5-37); Bilirubin Total 0.6 mg/dL (0.0-1.0); Blood Urea Nitrogen 12 mg/dL (9-16); Calcium 9.1 mg/dL (8.4-10.2); Carbon Dioxide 23 mmol/L (22-29); Chloride 107 mmol/L (96-108); Creatinine Clr Calc Pharmacy 185.1; Estimated Glomerular Filt Rate > 60; Glucose Random 84 mg/dL (60-115); Potassium 4.4 mmol/L (3.3-5.1); Sodium 140 mmol/L (135-145)
[2020-10-18 18:14] LABS: Amphetamine Screen Urine POSITIVE (Not Detect); Barbiturates, Urine Not Detected (Not Detect); Benzodiazepines Screen Urine Not Detected (Not Detect); Cannabinoid Screen Urine Not Detected (Not Detect); Cocaine Screen Urine Not Detected (Not Detect); Fentanyl, urine Not Detected (Not Detect); Opiate Screen Urine Not Detected (Not Detect); Phencyclidine Screen Urine Not Detected (Not Detect)
[2020-10-18 18:59] VITALS: BP 157/74; PULSE 78; RESP 20; O2SAT 99
== END 2020-10-18 19:05 | disposition home or self-care (01) ==
PROVIDERS: Nurse Practitioner Primary Care; Emergency Provider Emergency Medicine
DX: R11.2 Nausea with vomiting, unspecified (principal); I10 Essential (primary) hypertension; F11.20 Opioid dependence, uncomplicated; F14.10 Cocaine abuse, uncomplicated; F17.210 Nicotine dependence, cigarettes, uncomplicated; Z79.899 Other long term (current) drug therapy; Z59.0 Homelessness
CPT/HCPCS: 36415; 80053; 80307; 81001; 85025; 96360; 99284

== ENCOUNTER 2021-08-07 12:07 | Inpatient (IN) | payer MEDICAID, SELFPAY ==
--- NOTE | ~2021-08-07 | US_ITS ---
EXAMINATION: US VENOUS ULTRASOUND WITH DOPPLER LOWER EXTREMITY, RIGHT CLINICAL INFORMATION: Right swollen painful right lower extremity COMPARISON: None TECHNIQUE: Ultrasound of the deep veins is performed from the hip to the calf with compression sonography and color and pulse Doppler assessment. Spectral analysis with color-flow imaging is performed. FINDINGS: There is normal venous compression and respiratory variation and augmented flow. The visualized common femoral vein, superficial femoral vein, profunda femoral vein, popliteal vein, and the trifurcation region shows no evidence of deep venous thrombosis. There is no significant popliteal fossa cyst. No popliteal artery aneurysm. Edema is present within the subcutaneous soft tissues. US/US venous duplex LE RT IMPRESSION: No acute DVT demonstrated in the right lower extremity.
[2021-08-07 12:24] VITALS: BP 128/78; PULSE 95; RESP 17; TEMP 36.8; O2SAT 96; BMI 47.3
[2021-08-07 12:57] LABS: MANUAL DIFF FLAG NO
[2021-08-07 12:58] LABS: Appearance Urine HAZY; Color Urine YELLOW; Glucose Urine UA NEG (NEG); Leukocyte Esterase Urine NEG (NEG); Nitrite Urine NEG (NEG); Specific Gravity - Urine 1.015 (1.005-1.025); UACC Culture Trigger NO; Urine Blood NEG (NEG); Urine Ketones >=80 MG/DL (NEG); Urine Protein 1+ MG/DL (NEG-TRACE)
[2021-08-07 13:03] LABS: Basophils Percent Auto 0.1 % (0-2); Hematocrit 39.7 % (42.0-52.0); Hemoglobin 13.6 g/dl (14.0-18.0); Imm Gran Abs Auto 0.07 X10*3/uL (0.00-0.03); Imm Gran Pct Auto 0.4 % (0.0-0.4); Lymphocytes Absolute Auto 1.4 X10*3/uL (1.2-4.9); Lymphocytes Percent Auto 8.4 % (20-40); Mean Corpuscular HGB Conc 34.3 g/dl (31.0-36.0); Mean Corpuscular Hemoglobin 28.2 pg (27.0-33.0); Mean Corpuscular Volume 82.2 fL (80.0-98.0); Mean Platelet Volume 10.1 fL (9.4-12.4); Monocytes Percent Auto 5.7 % (2-11); Neutrophils Absolute Auto 14.6 x10*3/uL (2.0-8.3); Neutrophils Percent Auto 85.4 % (45-73); Platelet Count 257 X10*3/uL (160-400); Red Blood Count 4.83 X10*6/uL (4.60-5.80); Red Cell Distribution Width 13.1 % (11.0-16.0); White Blood Count 17.1 X10*3/uL (4.8-10.8)
[2021-08-07 13:06] LABS: Squamous Epithelial Cell Urine 2+ /LPF
[2021-08-07 13:07] LABS: UACC CULT YES
[2021-08-07 13:14] LABS: Alanine Aminotransferase 29 U/L (0-40); Albumin Level 3.6 g/dL (3.5-5.0); Alkaline Phosphatase 70 U/L (39-117); Anion Gap 15 (12-20); Aspartate Amino Transferase 23 U/L (5-37); Bilirubin Total 0.5 mg/dL (0.0-1.0); Blood Urea Nitrogen 9 mg/dL (9-16); C Reactive Protein 18.86 mg/dL (< or = 0.50); Calcium 9.3 mg/dL (8.4-10.2); Carbon Dioxide 25 mmol/L (22-29); Chloride 96 mmol/L (96-108); Creatinine Clr Calc Pharmacy 242.9; Estimated Glomerular Filt Rate > 60; Glucose Random 125 mg/dL (60-115); Potassium 3.5 mmol/L (3.3-5.1); Sodium 132 mmol/L (135-145); Total Protein 6.7 g/dL (6.5-8.0)
--- NOTE | 2021-08-07 13:26 | ED.GENADULT ---
HPI - General Adult General Chief complaint: General Medical Stated complaint: R leg pain no inj/Dizzy Time Seen by Provider: 08/07/21 12:53 Source: patient Mode of arrival: ambulatory Limitations: no limitations History of Present Illness HPI narrative: 30-year-old transgender female presents for 3 days of right lower extremity redness, swelling, warmth, and pain. Patient cut her leg shaving, and then the rash appeared. Patient has felt chills at home, but no fevers. Also endorses a headache for the last 3 days. The headache is frontal and started gradually. No fevers, no elevated blood pressure, headache is 3/10. Patient states the headache is worse with thinking . Patient did vomit once 2 days ago. She is on estrogen, 6 mg orally, which she took today. No history blood clots. Patient lives at the [facility], a residential treatment program for co occurring mental health and substance abuse disorder patient has past medical history of ADHD, IBS, hypertension, PTSD, borderline personality disorder, opioid use disorder, psychoactive substance induced mood disorder Related Data Home Medications Medication Instructions Recorded Confirmed albuterol sulfate 90 mcg/actuation 1 puff INHALATION Q6H PRN 08/07/21 08/07/21 aerosol inhaler (Ventolin HFA) buprenorphine 300 mg/1.5 mL 300 mg SUBCUT QMONTH 08/07/21 08/07/21 solution,exten.rel.subcutaneous syringe (Sublocade) clonidine HCl 0.1 mg tablet 0.1 mg PO BEDTIME PRN 08/07/21 08/07/21 clonidine HCl 0.1 mg tablet 0.1 mg PO DAILY 08/07/21 08/07/21 docusate sodium 100 mg capsule 100 mg PO BID 08/07/21 08/07/21 estradiol 2 mg tablet 2 mg PO TID 08/07/21 08/07/21 lamotrigine 100 mg tablet 200 mg PO DAILY 08/07/21 08/07/21 lisdexamfetamine 60 mg capsule 60 mg PO DAILY 08/07/21 08/07/21 (Vyvanse) lorazepam 1 mg tablet 1 mg PO BID PRN 08/07/21 08/07/21 ondansetron 4 mg disintegrating 4 mg PO Q8H PRN 08/07/21 08/07/21 tablet prazosin 2 mg capsule 2 mg PO BEDTIME 08/07/21 08/07/21 prazosin 5 mg capsule 5 mg PO BEDTIME 08/07/21 08/07/21 spironolactone 50 mg tablet 50 mg PO BID 08/07/21 08/07/21 Previous Rx's Medication Instructions Recorded famotidine 20 mg tablet 20 mg PO BID PRN #60 tab 10/03/20 gabapentin 300 mg capsule 600 mg PO TID #42 cap 10/03/20 hydroxyzine HCl 50 mg tablet 100 mg PO Q6H PRN #60 tab 10/03/20 naloxone 4 mg/actuation nasal 4 mg INTRANASAL Q2M PRN #2 ea 10/03/20 spray (Narcan) polyethylene glycol 3350 17 17 g PO DAILY PRN #119 g 10/03/20 gram/dose oral powder (Miralax) Allergies Allergy/AdvReac Type Severity Reaction Status Date / Time aripiprazole [From [facility]] Allergy Unknown UNKNOWN Verified 10/18/20 16:33 Review of Systems Constitutional: Constitutional: Denies body ache(s), Reports chills, Reports fatigue, Denies fever(s), Reports headache(s), Reports malaise and Denies weakness Eyes: Eyes: Denies diplopia ENT: Reports Normal hearing present, Denies vertigo, Denies dizziness, Denies otalgia, Reports headache(s), Denies nasal congestion, Denies nasal discharge, Denies neck pain, Denies sore throat and Denies throat swelling Cardiovascular: Cardiovascular: Denies chest pain, Denies syncope, Reports leg edema, Denies lightheadedness, Denies Loss of Consciousness, Denies palpitations, Denies dyspnea and Denies dyspnea on exertion Respiratory: Respiratory: Denies chest congestion, Denies cough, Denies dyspnea and Denies dyspnea on exertion Gastrointestinal: Gastrointestinal: Denies abdominal pain, Denies melena, Denies hematochezia, Denies constipation, Denies diarrhea, Denies nausea, Reports vomiting and Denies hematemesis Musculoskeletal: Musculoskeletal: Denies muscle cramps, Denies neck pain and Denies numbness Comments: swelling, redness, pain right lower extremity Integumentary/Breasts: Skin/Breast: Reports swelling, Reports erythema, Reports rash, Reports skin pain, Reports skin swelling and Reports wounds Neurologic: Reports Normal hearing present, Denies Abnormal speech present, Denies confusion, Denies vertigo, Denies dizziness, Denies syncope, Reports headache(s), Denies numbness, Denies Sensory deficit (Neuro) and Denies weakness Psychiatric: Psychiatric: Denies anxiety, Denies confusion and Denies depression Endocrine: Endocrine: Reports fatigue and Denies palpitations Allergic/Immunologic: Allergic/Immunologic: Denies throat swelling PMFSH Past Medical History Medical History Abscess of left upper extremity ADHD Anxiety Asthma Borderline personality disorder Cocaine substance abuse Depression HTN (hypertension) IBS (irritable bowel syndrome) Opiate misuse Opioid use disorder, severe, dependence Perianal cyst PTSD (post-traumatic stress disorder) Tibial torsion, bilateral Social History Social History Household Members: None Housing: Homeless Do you presently have visiting nurse or other home services: No Alcohol intake: never Patient Tobacco Use Status: Current everyday Tobacco user Tobacco use type: Cigarette Cigarette Packs Per Day: 1 Cigarettes Per Day: 20.0 e-Cigarette/Vaping Use: Never Used Second Hand Smoke Exposure: Yes Substance Use Type: Crack/Cocaine, Heroin and Methamphetamine Advance Directives: No Advance Directives Information Provided: No service: No Sexual orientation: Did not discuss Physical Exam ED Vital Signs: Vital Signs - 24 hr 08/07/21 12:24 08/07/21 16:47 Temperature 98.3 F 98.8 F Pulse Rate 95 82 Respiratory Rate 17 18 Blood Pressure 128/78 127/82 Pulse Oximetry 96 98 BMI result Body Mass Index 47.3 Const General: alert, awake, poor hygiene and tired appearing; No confusion Nutritional Appearance: obese centrally obese Orientation/consciousness: patient oriented x3 and No confusion Limitations: no limitations HENMT Head: Yes normal to inspection, Yes normocephalic and Yes atraumatic Ears: hearing grossly normal bilaterally and external ears normal General nose exam: Normal external nose present Face and sinus: Yes normal facial exam and Yes sinuses nontender Mouth: Normal oral and palatal mucosa present Throat: Yes posterior oropharynx normal Eyes Conjunctivae: conjunctivae normal Pupils: Equal, round and reactive pupils present EOM: EOMs intact bilaterally and No Nystagmus present Neck Neck: Yes full ROM, Yes no lymphadenopathy and Yes supple Resp Effort & Inspection: normal respiratory effort and able to speak in complete sentences Auscultation: clear to auscultation bilaterally, no crackles, no rales, no rhonchi and no wheezes Cardio Rate: regular rate Rhythm: regular rhythm Heart sounds: S1 normal heart sound present and S2 normal heart sound present GI Inspection: Yes Abdominal panniculus present and Yes obesity Palpation (GI): Soft to palpation, nontender, no guarding and not rigid Percussion: Yes normal to percussion Auscultation: normal bowel sounds Skin Other: redness, swelling, warmth, right lower extremity Neuro General: patient oriented x3 and No confusion Cranial nerves: Yes CN's II-XII intact bilaterally, Yes Facial sensation intact/muscles of mastication intact, Yes Equal, round and reactive pupils present, Yes Normal accommodation reflex present, Yes Bilaterally intact EOM present, Yes Nystagmus not present, Yes Normal facial strength present, Yes Midline tongue present, Yes Normal hearing present, Yes Ability to bilaterally rotate head present, Yes Ability to bilaterally elevate shoulders present and No Nystagmus present Cognition (Neuro): normal cognition Speech: No Abnormal speech present Gait exam (Neuro): Normal gait present Motor exam (neuro): 5/5 motor strength present throughout Sensory Exam: No Sensory deficit (Neuro) Deep tendon reflexes (DTR's): Right patellar reflex intensity grade: 1+ and Left patellar reflex intensity grade: 1+ Coordination: [id number] test normal and [id number] test normal Pupils: Normal pupillary reactivity/response: bilateral Extrem Right lower extremity: full ROM, normal capillary refill, edema Details: pitting and 2+, lower leg Details: erythema Location: of the proximal lower leg, of the mid lower leg and of the distal lower leg, tenderness Location: of the posterior calf, localized swelling Location: of the proximal lower leg, of the mid lower leg and of the distal lower leg, pitting edema Details: 2+, abrasion (anterior distal right henry) and warmth Location: of the proximal lower leg, of the mid lower leg and of the distal lower leg; Negative for no ecchymosis and no crepitus and foot Details: normal capillary refill, tenderness, toes with normal ROM and edema Location: diffusely; Negative for no unusual warmth Psych Appearance: grossly normal Affect: normal affect Attitude: cooperative Thought process: Normal thought process present Course Course Course Narrative: 30-year-old transgender female who is on estrogen presents for right lower extremity pain, swelling, redness for the last 3 days. the symptoms started after patient had some cuts on her leg after shaving. Also endorses a mild headache on exam, patient is neurologically intact, vital signs are stable, she is afebrile and normotensive patient has severe pain to palpation of right lower extremity, right lower extremity has diffuse +2 pitting edema, patchy erythematous areas, and is extremely tender to palpation. there are some healing abrasions on distal anterior henry, most likely from razor cuts from shaving patient has a leukocytosis of 17.1, elevated inflammatory markers; her ESR is 60, her CRP is 18.8. Patient has a sodium of 132, her lactic is 1.0. Got blood cultures, gave Tylenol, IV fluids, started IV antibiotic Ultrasound negative for DVT Covid negative Will persue admission due to extent of edema and erythema, going all the way into the foot, and patient's WBC count of 17.1 and elevated inflammatory markers Medical Decision Making Lab Data Result diagrams: 08/07/21 12:49 08/07/21 12:49 Labs: Lab Results 08/07/21 08/07/21 08/07/21 Range/Units 12:48 12:48 12:49 WBC 17.1 H (4.8-10.8) X10*3/uL RBC 4.83 (4.60-5.80) X10*6/uL Hgb 13.6 L (14.0-18.0) g/dl Hct 39.7 L (42.0-52.0) % MCV 82.2 (80.0-98.0) fL MCH 28.2 (27.0-33.0) pg MCHC 34.3 (31.0-36.0) g/dl RDW 13.1 (11.0-16.0) % Plt Count 257 (160-400) X10*3/uL MPV 10.1 (9.4-12.4) fL Immature Gran % (Auto) 0.4 (0.0-0.4) % Neut % (Auto) 85.4 H (45-73) % Lymph % (Auto) 8.4 L (20-40) % [place] % (Auto) 5.7 (2-11) % Eos % (Auto) 0.0 (0-4) % Baso % (Auto) 0.1 (0-2) % Lymph # (Auto) 1.4 (1.2-4.9) X10*3/uL [place] # (Auto) 1.0 (0.1-1.2) X10*3/uL Eos # (Auto) 0.0 (0.0-0.4) X10*3/uL Baso # (Auto) 0.0 (0.0-0.2) X10*3/uL Abs Immat Gran (auto) 0.07 H (0.00-0.03) X10*3/uL Absolute Neuts (auto) 14.6 H (2.0-8.3) x10*3/uL Absolute Nucleated RBC 0.000 (0.0-0.012) X10*3/uL Nucleated RBC % (auto) 0.0 (0.0-0.2) /100WBC ESR 60 H (0-15) MM/HR PT (9.9-13.0) SEC INR (0.9-1.1) APTT (24.1-38.0) SEC Sodium (135-145) mmol/L Potassium (3.3-5.1) mmol/L Chloride (96-108) mmol/L Carbon Dioxide (22-29) mmol/L Anion Gap (12-20) BUN (9-16) mg/dL Creatinine (0.5-1.4) mg/dL Estim Creat Clear Calc Estimated GFR Random Glucose (60-115) mg/dL Lactic Acid 1.0 (0.5-2.0) mmol/L Calcium (8.4-10.2) mg/dL Total Bilirubin (0.0-1.0) mg/dL AST (5-37) U/L ALT (0-40) U/L Alkaline Phosphatase (39-117) U/L C-Reactive Protein (< or = 0.50) mg/dL Total Protein (6.5-8.0) g/dL Albumin (3.5-5.0) g/dL Urine Color Urine Appearance Urine pH (5.0-8.0) Ur Specific [place] (1.005-1.025) Urine Protein (NEG-TRACE) MG/DL Urine Glucose (UA) (NEG) MG/DL Urine Ketones (NEG) MG/DL Urine Blood (NEG) Urine Nitrite (NEG) Ur Leukocyte Esterase (NEG) Urine RBC (0) /HPF Urine WBC (0-4) /HPF Ur Squamous Epith Cells /LPF Urine Bacteria /LPF Urine Opiates Screen (Not Detect) Urine Fentanyl Screen (Not Detect) Ur Barbiturates Screen (Not Detect) Ur Phencyclidine Scrn (Not Detect) Ur Amphetamines Screen (Not Detect) U Benzodiazepines Scrn (Not Detect) Urine Cocaine Screen (Not Detect) U Marijuana (THC) Screen (Not Detect) COVID-19 (LOS) (Negative) COVID-19 Clin Com 08/07/21 08/07/21 08/07/21 Range/Units 12:49 12:49 12:49 WBC (4.8-10.8) X10*3/uL RBC (4.60-5.80) X10*6/uL Hgb (14.0-18.0) g/dl Hct (42.0-52.0) % MCV (80.0-98.0) fL MCH (27.0-33.0) pg MCHC (31.0-36.0) g/dl RDW (11.0-16.0) % Plt Count (160-400) X10*3/uL MPV (9.4-12.4) fL Immature Gran % (Auto) (0.0-0.4) % Neut % (Auto) (45-73) % Lymph % (Auto) (20-40) % [place] % (Auto) (2-11) % Eos % (Auto) (0-4) % Baso % (Auto) (0-2) % Lymph # (Auto) (1.2-4.9) X10*3/uL [place] # (Auto) (0.1-1.2) X10*3/uL Eos # (Auto) (0.0-0.4) X10*3/uL Baso # (Auto) (0.0-0.2) X10*3/uL Abs Immat Gran (auto) (0.00-0.03) X10*3/uL Absolute Neuts (auto) (2.0-8.3) x10*3/uL Absolute Nucleated RBC (0.0-0.012) X10*3/uL Nucleated RBC % (auto) (0.0-0.2) /100WBC ESR (0-15) MM/HR PT (9.9-13.0) SEC INR (0.9-1.1) APTT (24.1-38.0) SEC Sodium 132 L (135-145) mmol/L Potassium 3.5 D (3.3-5.1) mmol/L Chloride 96 (96-108) mmol/L Carbon Dioxide 25 (22-29) mmol/L Anion Gap 15 (12-20) BUN 9 (9-16) mg/dL Creatinine 0.64 (0.5-1.4) mg/dL Estim Creat Clear Calc 242.9 Estimated GFR > 60 Random Glucose 125 H D (60-115) mg/dL Lactic Acid (0.5-2.0) mmol/L Calcium 9.3 (8.4-10.2) mg/dL Total Bilirubin 0.5 (0.0-1.0) mg/dL AST 23 D (5-37) U/L ALT 29 (0-40) U/L Alkaline Phosphatase 70 (39-117) U/L C-Reactive Protein 18.86 H (< or = 0.50) mg/dL Total Protein 6.7 (6.5-8.0) g/dL Albumin 3.6 (3.5-5.0) g/dL Urine Color YELLOW Urine Appearance HAZY Urine pH 7.0 (5.0-8.0) Ur Specific [place] 1.015 (1.005-1.025) Urine Protein 1+ H (NEG-TRACE) MG/DL Urine Glucose (UA) NEG (NEG) MG/DL Urine Ketones >=80 (NEG) MG/DL Urine Blood NEG (NEG) Urine Nitrite NEG (NEG) Ur Leukocyte Esterase NEG (NEG) Urine RBC 5-9 H (0) /HPF Urine WBC 5-9 H (0-4) /HPF Ur Squamous Epith Cells 2+ /LPF Urine Bacteria NONE /LPF Urine Opiates Screen Not Detected (Not Detect) Urine Fentanyl Screen Not Detected (Not Detect) Ur Barbiturates Screen Not Detected (Not Detect) Ur Phencyclidine Scrn Not Detected (Not Detect) Ur Amphetamines Screen POSITIVE H (Not Detect) U Benzodiazepines Scrn Not Detected (Not Detect) Urine Cocaine Screen Not Detected (Not Detect) U Marijuana (THC) Screen Not Detected (Not Detect) COVID-19 (LOS) (Negative) COVID-19 Clin Com 08/07/21 08/07/21 Range/Units 13:58 14:42 WBC (4.8-10.8) X10*3/uL RBC (4.60-5.80) X10*6/uL Hgb (14.0-18.0) g/dl Hct (42.0-52.0) % MCV (80.0-98.0) fL MCH (27.0-33.0) pg MCHC (31.0-36.0) g/dl RDW (11.0-16.0) % Plt Count (160-400) X10*3/uL MPV (9.4-12.4) fL Immature Gran % (Auto) (0.0-0.4) % Neut % (Auto) (45-73) % Lymph % (Auto) (20-40) % [place] % (Auto) (2-11) % Eos % (Auto) (0-4) % Baso % (Auto) (0-2) % Lymph # (Auto) (1.2-4.9) X10*3/uL [place] # (Auto) (0.1-1.2) X10*3/uL Eos # (Auto) (0.0-0.4) X10*3/uL Baso # (Auto) (0.0-0.2) X10*3/uL Abs Immat Gran (auto) (0.00-0.03) X10*3/uL Absolute Neuts (auto) (2.0-8.3) x10*3/uL Absolute Nucleated RBC (0.0-0.012) X10*3/uL Nucleated RBC % (auto) (0.0-0.2) /100WBC ESR (0-15) MM/HR PT 12.5 (9.9-13.0) SEC INR 1.1 (0.9-1.1) APTT 28.3 (24.1-38.0) SEC Sodium (135-145) mmol/L Potassium (3.3-5.1) mmol/L Chloride (96-108) mmol/L Carbon Dioxide (22-29) mmol/L Anion Gap (12-20) BUN (9-16) mg/dL Creatinine (0.5-1.4) mg/dL Estim Creat Clear Calc Estimated GFR Random Glucose (60-115) mg/dL Lactic Acid (0.5-2.0) mmol/L Calcium (8.4-10.2) mg/dL Total Bilirubin (0.0-1.0) mg/dL AST (5-37) U/L ALT (0-40) U/L Alkaline Phosphatase (39-117) U/L C-Reactive Protein (< or = 0.50) mg/dL Total Protein (6.5-8.0) g/dL Albumin (3.5-5.0) g/dL Urine Color Urine Appearance Urine pH (5.0-8.0) Ur Specific [place] (1.005-1.025) Urine Protein (NEG-TRACE) MG/DL Urine Glucose (UA) (NEG) MG/DL Urine Ketones (NEG) MG/DL Urine Blood (NEG) Urine Nitrite (NEG) Ur Leukocyte Esterase (NEG) Urine RBC (0) /HPF Urine WBC (0-4) /HPF Ur Squamous Epith Cells /LPF Urine Bacteria /LPF Urine Opiates Screen (Not Detect) Urine Fentanyl Screen (Not Detect) Ur Barbiturates Screen (Not Detect) Ur Phencyclidine Scrn (Not Detect) Ur Amphetamines Screen (Not Detect) U Benzodiazepines Scrn (Not Detect) Urine Cocaine Screen (Not Detect) U Marijuana (THC) Screen (Not Detect) COVID-19 (LOS) Negative (Negative) COVID-19 Clin Com See Note Discharge Plan Discharge Clinical Impression: Cellulitis Patient Disposition: Admitted As Inpatient
[2021-08-07 13:41] LABS: Erythrocyte Sedimentation Rate 60 MM/HR (0-15)
--- NOTE | 2021-08-07 14:04 | PC.NURSE ---
PT TOUGH STICK, 3RD RN TO TRY WITH US.
[2021-08-07 14:18] LABS: COVID-19 Test Negative (Negative)
[2021-08-07] MEDS: LORazepam 1 MG TABLET PO (14:22)
[2021-08-07] MEDS: Acetaminophen 325 MG TABLET 975 MG PO (14:23)
[2021-08-07] MEDS: ceFAZolin Sodium/Dextrose,Iso 2 GM/50 ML PIGGYBACK IV ×2 (14:46→22:33)
[2021-08-07] MEDS: 0.9 % Sodium Chloride 1,000 ML 999 ML IV (14:46)
[2021-08-07 14:57] LABS: INTERNATIONAL NORM RATIO 1.1 (0.9-1.1); Prothrombin Time 12.5 SEC (9.9-13.0)
[2021-08-07 15:00] LABS: Partial Thromboplastin Time 28.3 SEC (24.1-38.0)
--- NOTE | 2021-08-07 16:04 | PC.NURSE ---
PT SLEEPING, EASILY AWOKEN, TOLERATING IV FLUIDS, AWAITING RE EVAL.
[2021-08-07 16:47] VITALS: BP 127/82; PULSE 82; RESP 18; TEMP 37.1; O2SAT 98
--- NOTE | 2021-08-07 16:50 | PHA.MEDREC ---
MED REC COMPLETE, NO ISSUES Pharmacy Consult ? Medication Reconciliation Pharmacy has completed the medication reconciliation.
--- NOTE | 2021-08-07 16:52 | MHC.CM.PN ---
CM was asked to verify this patient's suboxone dosage by Savanna JOHNSTON and Chaya GUALLPA. Normally, suboxone is verified with the med rec. CM spoke with patient. She tells CM that she no longer takes suboxone and is unsure what pharmacy she uses. Pt tells CM that she now gets a monthly injection of Sublocaid. WALDEMAR spoke with Ian who suggested that a consult be made to Laisha Huff in Addiction/Recovery. Per Ian, this patient will need suboxone while hospitalized and then can continue her monthly injections when discharged at [facility], as this medication is given at the clinic only. Chaya GUALLPA notified.
[2021-08-07 17:09] LABS: Amphetamine Screen Urine POSITIVE (Not Detect); Barbiturates, Urine Not Detected (Not Detect); Benzodiazepines Screen Urine Not Detected (Not Detect); Cannabinoid Screen Urine Not Detected (Not Detect); Cocaine Screen Urine Not Detected (Not Detect); Fentanyl, urine Not Detected (Not Detect); Opiate Screen Urine Not Detected (Not Detect); Phencyclidine Screen Urine Not Detected (Not Detect)
--- NOTE | 2021-08-07 18:07 | PM.IMHP ---
History of Present Illness Date of Service: 08/07/21 Attending physician on admission: Kiersten Bhagat Chief Complaint: sepsis/leg cellulitis 30-year-old transgender female On estrogen, history of PTSD, ADHD, borderline personality, opioid use- who came to the hospital because of right leg erythema and pain- she says that 3-4 days ago she try to save her leg and afterwards started having erythema, swelling and pain- subsequently decided to come to the hospital for pain swelling of right leg area.headaches when she thinks? . patient denies any fever or chills or nausea or vomiting or abdominal pain or cough or phlegm or weakness or numbness. patient was seen by ED physician: Patient has white count of 17 and also was mild tachycardic heart rate of 95 initially. lactic acid normal, DVT study negative for the leg ESR and CRP elevated, blood cultures sent Qualified for sepsis, patient was given IV antibiotics and requested admission for cellulitis/sepsis. patient received IV antibiotic, Tylenol and lorazepam in the ED. Patient lives at the [facility],? a residential treatment program for co occurring mental health and substance abuse disorder Review of Systems Review of Systems: As above. Yes all other systems are reviewed and are negative PMFSH Medical History Abscess of left upper extremity ADHD Anxiety Asthma Borderline personality disorder Cocaine substance abuse Depression HTN (hypertension) IBS (irritable bowel syndrome) Opiate misuse Opioid use disorder, severe, dependence Perianal cyst PTSD (post-traumatic stress disorder) Tibial torsion, bilateral Pertinent family history: Patient is not sure about his family history of any medical problem Social History Household Members: None Housing: Homeless Do you presently have visiting nurse or other home services: No Alcohol intake: never Patient Tobacco Use Status: Current everyday Tobacco user Tobacco use type: Cigarette Cigarette Packs Per Day: 1 Cigarettes Per Day: 20.0 e-Cigarette/Vaping Use: Never Used Second Hand Smoke Exposure: Yes Substance Use Type: Crack/Cocaine, Heroin and Methamphetamine Advance Directives: No Advance Directives Information Provided: No service: No Sexual orientation: Did not discuss Meds Allergies Allergy/AdvReac Type Severity Reaction Status Date / Time aripiprazole [From ABILIFY] Allergy Unknown UNKNOWN Verified 10/18/20 16:33 Active Medications: Current Medications Albuterol Sulfate (Albuterol Sulfate 90 Mcg 8 Gm Inhaler) 1 puff INHALE Q6H PRN PRN Reason: Wheezing Clonidine HCl (Clonidine Hcl 0.1 Mg Tablet) 0.1 mg PO BEDTIME PRN; Protocol PRN Reason: Anxiety Clonidine HCl (Clonidine Hcl 0.1 Mg Tablet) 0.1 mg PO DAILY ANGELES; Protocol Docusate Sodium (Docusate Sodium 100 Mg Capsule) 100 mg PO BID ANGELES Estradiol (Estradiol 0.5 Mg Tablet) 2 mg PO TID ANGELES Famotidine (Famotidine 20 Mg Tablet) 20 mg PO BID PRN PRN Reason: GERD Gabapentin (Gabapentin 300 Mg Capsule) 600 mg PO TID ANGELES Heparin Sodium (Porcine) (Heparin Sodium,Porcine 5,000 Unit/Ml Vial) 5,000 unit SUBCUT Q8H ANGELES Hydroxyzine HCl (Hydroxyzine Hcl 50 Mg Tablet) 100 mg PO Q6H PRN PRN Reason: Anxiety Lactated Ringer's (Lr) 1,000 mls @ 100 mls/hr IVCONT .Q10H ANGELES Cefazolin Sodium 2 gm/ Sodium (Chloride) 50 mls @ 100 mls/hr IV Q8H ANGELES Lamotrigine (Lamotrigine 100 Mg Tablet) 200 mg PO DAILY ANGELES Lorazepam (Lorazepam 1 Mg Tablet) 1 mg PO BID PRN PRN Reason: Anxiety Naloxone HCl (Naloxone Hcl Nasal 4 Mg [place]) 4 mg NOSTRILALT Q2M PRN PRN Reason: opioid overdose Non-Formulary Medication (Lisdexamfetamine [Vyvanse]) 60 mg PO DAILY [facility] Non-Formulary Medication (Buprenorphine) 300 mg SUBCUT QMONTH ANGELES Ondansetron HCl (Ondansetron Odt 4 Mg Tab.Rapdis) 4 mg TRANSLINGU Q8H PRN PRN Reason: Nausea Pharmacy Consult (Consult Rx Perform Med Rec) 1 each MISCELLANE ONCE PRN PRN Reason: Consult order Polyethylene Glycol (Polyethylene Glycol 3350 17 Gm Powd.Pack) 17 gm PO DAILY PRN PRN Reason: constipation Prazosin HCl (Prazosin Hcl 1 Mg Capsule) 2 mg PO BEDTIME ANGELES; Protocol Prazosin HCl (Prazosin Hcl 5 Mg Capsule) 5 mg PO BEDTIME ANGELES; Protocol Sodium Chloride (0.9 % Sodium Chloride Flush 3 Ml Syringe) 3 ml IVFLUSH QSHIFT [facility] Spironolactone (Spironolactone 25 Mg Tablet) 50 mg PO BID [facility]; Protocol Home Medications Medication Instructions Recorded Confirmed Last Taken Type albuterol sulfate 90 mcg/actuation 1 puff INHALATION Q6H PRN 08/07/21 08/07/21 Unknown History aerosol inhaler (Ventolin HFA) buprenorphine 300 mg/1.5 mL 300 mg SUBCUT QMONTH 08/07/21 08/07/21 Unknown History solution,exten.rel.subcutaneous syringe (Sublocade) clonidine HCl 0.1 mg tablet 0.1 mg PO BEDTIME PRN 08/07/21 08/07/21 Unknown History clonidine HCl 0.1 mg tablet 0.1 mg PO DAILY 08/07/21 08/07/21 Unknown History docusate sodium 100 mg capsule 100 mg PO BID 08/07/21 08/07/21 Unknown History estradiol 2 mg tablet 2 mg PO TID 08/07/21 08/07/21 Unknown History lamotrigine 100 mg tablet 200 mg PO DAILY 08/07/21 08/07/21 Unknown History lisdexamfetamine 60 mg capsule 60 mg PO DAILY 08/07/21 08/07/21 Unknown History (Vyvanse) lorazepam 1 mg tablet 1 mg PO BID PRN 08/07/21 08/07/21 Unknown History ondansetron 4 mg disintegrating 4 mg PO Q8H PRN 08/07/21 08/07/21 Unknown History tablet prazosin 2 mg capsule 2 mg PO BEDTIME 08/07/21 08/07/21 Unknown History prazosin 5 mg capsule 5 mg PO BEDTIME 08/07/21 08/07/21 Unknown History spironolactone 50 mg tablet 50 mg PO BID 08/07/21 08/07/21 Unknown History Physical Exam Vital Signs and Narrative: Vital Signs: Last Vital Signs Temp 98.8 F 08/07/21 16:47 Pulse 82 08/07/21 16:47 Resp 18 08/07/21 16:47 BP 127/82 08/07/21 16:47 Pulse Ox 98 08/07/21 16:47 BMI result Body Mass Index 47.3 Appearance: Alert.? Oriented X3.? not in distress.? Eyes: Pupils equal, round and reactive to light.? Sclera nonicteric.? ENT: Pharynx normal.? Moist mucous membranes. cvs: [id number], [id number] , no murmur res: clear to auscultation ,no rhonchii or wheezing abd: no rebound or guarding ,nt, bs present. ext pulses present , no cyanosis ,right leg ext erythema/swelling , no flacutation ,warm-up [place] area . neuro: axo3 , nonfocal. Results Labs CBC and Chem 7: 08/07/21 12:49 08/07/21 12:49 Labs: Laboratory Results - last 24 hr 08/07/21 08/07/21 08/07/21 12:48 12:48 12:49 MCV 82.2 MCH 28.2 MCHC 34.3 RDW 13.1 Plt Count 257 MPV 10.1 Immature Gran % (Auto) 0.4 Neut % (Auto) 85.4 H Lymph % (Auto) 8.4 L [place] % (Auto) 5.7 Eos % (Auto) 0.0 Baso % (Auto) 0.1 Lymph # (Auto) 1.4 [place] # (Auto) 1.0 Eos # (Auto) 0.0 Baso # (Auto) 0.0 Abs Immat Gran (auto) 0.07 H Absolute Neuts (auto) 14.6 H Absolute Nucleated RBC 0.000 Nucleated RBC % (auto) 0.0 ESR 60 H PT INR APTT Anion Gap Estim Creat Clear Calc Estimated GFR Random Glucose Lactic Acid 1.0 Calcium Total Bilirubin AST ALT Alkaline Phosphatase C-Reactive Protein Total Protein Albumin Urine Color Urine Appearance Urine pH Ur Specific [place] Urine Protein Urine Glucose (UA) Urine Ketones Urine Blood Urine Nitrite Ur Leukocyte Esterase Urine RBC Urine WBC Ur Squamous Epith Cells Urine Bacteria Urine Opiates Screen Urine Fentanyl Screen Ur Barbiturates Screen Ur Phencyclidine Scrn Ur Amphetamines Screen U Benzodiazepines Scrn Urine Cocaine Screen U Marijuana (THC) Screen COVID-19 (LOS) COVID-19 Clin Com 08/07/21 08/07/21 08/07/21 12:49 12:49 12:49 MCV MCH MCHC RDW Plt Count MPV Immature Gran % (Auto) Neut % (Auto) Lymph % (Auto) [place] % (Auto) Eos % (Auto) Baso % (Auto) Lymph # (Auto) [place] # (Auto) Eos # (Auto) Baso # (Auto) Abs Immat Gran (auto) Absolute Neuts (auto) Absolute Nucleated RBC Nucleated RBC % (auto) ESR PT INR APTT Anion Gap 15 Estim Creat Clear Calc 242.9 Estimated GFR > 60 Random Glucose 125 H D Lactic Acid Calcium 9.3 Total Bilirubin 0.5 AST 23 D ALT 29 Alkaline Phosphatase 70 C-Reactive Protein 18.86 H Total Protein 6.7 Albumin 3.6 Urine Color YELLOW Urine Appearance HAZY Urine pH 7.0 Ur Specific [place] 1.015 Urine Protein 1+ H Urine Glucose (UA) NEG Urine Ketones >=80 Urine Blood NEG Urine Nitrite NEG Ur Leukocyte Esterase NEG Urine RBC 5-9 H Urine WBC 5-9 H Ur Squamous Epith Cells 2+ Urine Bacteria NONE Urine Opiates Screen Not Detected Urine Fentanyl Screen Not Detected Ur Barbiturates Screen Not Detected Ur Phencyclidine Scrn Not Detected Ur Amphetamines Screen POSITIVE H U Benzodiazepines Scrn Not Detected Urine Cocaine Screen Not Detected U Marijuana (THC) Screen Not Detected COVID-19 (LOS) COVID-19 MUBI 08/07/21 08/07/21 13:58 14:42 MCV MCH MCHC RDW Plt Count MPV Immature Gran % (Auto) Neut % (Auto) Lymph % (Auto) [place] % (Auto) Eos % (Auto) Baso % (Auto) Lymph # (Auto) [place] # (Auto) Eos # (Auto) Baso # (Auto) Abs Immat Gran (auto) Absolute Neuts (auto) Absolute Nucleated RBC Nucleated RBC % (auto) ESR PT 12.5 INR 1.1 APTT 28.3 Anion Gap Estim Creat Clear Calc Estimated GFR Random Glucose Lactic Acid Calcium Total Bilirubin AST ALT Alkaline Phosphatase C-Reactive Protein Total Protein Albumin Urine Color Urine Appearance Urine pH Ur Specific [place] Urine Protein Urine Glucose (UA) Urine Ketones Urine Blood Urine Nitrite Ur Leukocyte Esterase Urine RBC Urine WBC Ur Squamous Epith Cells Urine Bacteria Urine Opiates Screen Urine Fentanyl Screen Ur Barbiturates Screen Ur Phencyclidine Scrn Ur Amphetamines Screen U Benzodiazepines Scrn Urine Cocaine Screen U Marijuana (THC) Screen COVID-19 (LOS) Negative COVID-19 Clin Com See Note Imaging Radiologist's Impressions: Impressions Venous Duplex 08/07/21 15:04 IMPRESSION: No acute DVT demonstrated in the right lower extremity. Assessment and Plan (1) Cellulitis: Status: Acute (2) Sepsis: Status: Acute Plan 30-year-old transgender female with Sepsis/cellulitis. Sepsis/cellulitis ESR, CRP elevated, leukocytosis normal lactic acid blood cultures sent, sepsis exam completed started in on Kefzol, continue to monitor. gentle iv hydration id evaluation PTSD/ADHD/ borderline personality/psychoactive substance induced mood use disorder: continue home medications. history of opioid use disorder: On sublocade. addiction consult is placed. Morbid obesity: encouraged to cut down calories and weight loss. DVT prophylaxis:s/c lovenox. Above management discussed the patient in detail length she understand and in agreement with the above plan, time spent 70 minute, patient is full code. considering sepsis and cellulitis need of antibiotic and wait for blood culture, patient may benefit from 2 midnight. Quality Stroke Does the patient have a stroke diagnosis?: No VTE Prior VTE?: No VTE Risk Level:: Medical - moderate - high VTE Device Contraindication: N/A - Device Ordered VTE Drug Contraindication: N/A - Med Ordered
[2021-08-07] MEDS: Lactated Ringers 1,000 ML 100 ML IVCONT (18:26)
[2021-08-07 18:28] VITALS: BP 121/77; PULSE 91; RESP 18; TEMP 37.5; O2SAT 100
[2021-08-07 20:26] VITALS: BP 135/75; PULSE 86; RESP 18; TEMP 37.2; O2SAT 97
[2021-08-07 21:10] VITALS: BP 136/79; PULSE 80; RESP 17; TEMP 37; O2SAT 100
[2021-08-07] MEDS: Acetaminophen 325 MG TABLET 650 MG PO (22:28)
[2021-08-07] MEDS: estradioL 0.5 MG TABLET 2 MG PO (22:29)
[2021-08-07] MEDS: Enoxaparin Sodium 40 MG/0.4 ML SYRINGE SUBCUT (22:29)
[2021-08-07] MEDS: Gabapentin 300 MG CAPSULE 600 MG PO (22:29)
[2021-08-07] MEDS: Spironolactone 25 MG TABLET 50 MG PO (22:29)
[2021-08-07] MEDS: Prazosin HCL 5 MG CAPSULE PO (22:29)
[2021-08-07] MEDS: Prazosin HCL 1 MG CAPSULE 2 MG PO (22:29)
[2021-08-07] MEDS: 0.9 % Sodium Chloride Flush 3 ML SYRINGE IVFLUSH (22:45)
[2021-08-07 22:47] VITALS: BMI 46.5
[2021-08-07 23:48] VITALS: BP 102/55; PULSE 100; RESP 18; TEMP 37.3; O2SAT 94
[2021-08-08] VITALS (8 sets, daily range): BP systolic 106–131; BP diastolic 55–64; PULSE 78–90; RESP 16–19; TEMP 36.9–37.6; O2SAT 95–96
[2021-08-08] MEDS: Lactated Ringers 1,000 ML 100 ML IVCONT ×3 (03:52→22:09)
[2021-08-08] MEDS: ceFAZolin Sodium/Dextrose,Iso 2 GM/50 ML PIGGYBACK IV (05:50)
[2021-08-08 06:11] LABS: Hematocrit 34.4 % (42.0-52.0); Hemoglobin 11.9 g/dl (14.0-18.0); Mean Corpuscular HGB Conc 34.6 g/dl (31.0-36.0); Mean Corpuscular Hemoglobin 28.6 pg (27.0-33.0); Mean Corpuscular Volume 82.7 fL (80.0-98.0); Mean Platelet Volume 10.3 fL (9.4-12.4); Platelet Count 261 X10*3/uL (160-400); Red Blood Count 4.16 X10*6/uL (4.60-5.80); Red Cell Distribution Width 13.2 % (11.0-16.0); White Blood Count 13.5 X10*3/uL (4.8-10.8)
[2021-08-08 06:48] LABS: Anion Gap 12 (12-20); Blood Urea Nitrogen 8 mg/dL (9-16); Calcium 8.3 mg/dL (8.4-10.2); Carbon Dioxide 27 mmol/L (22-29); Chloride 99 mmol/L (96-108); Creatinine Clr Calc Pharmacy 236.7; Estimated Glomerular Filt Rate > 60; Glucose Random 101 mg/dL (60-115); Potassium 3.1 mmol/L (3.3-5.1); Sodium 135 mmol/L (135-145)
[2021-08-08 09:12] LABS: MRSA Nasal PCR POSITIVE (Negative); SA Nasal PCR POSITIVE (Negative)
[2021-08-08] MEDS: LORazepam 1 MG TABLET PO ×2 (09:14→20:46)
[2021-08-08] MEDS: Spironolactone 25 MG TABLET 50 MG PO ×2 (09:15→20:46)
[2021-08-08] MEDS: lamoTRIgine 100 MG TABLET 200 MG PO (09:15)
[2021-08-08] MEDS: Gabapentin 300 MG CAPSULE 600 MG PO ×3 (09:16→20:47)
[2021-08-08] MEDS: estradioL 0.5 MG TABLET 2 MG PO ×3 (09:16→20:45)
--- NOTE | 2021-08-08 09:33 | PM.EVENT ---
Event Note Date of Service: 08/08/21 Event Note: Patient's sublocade dosing verified, due for monthly injection. Substitute suboxone 16mg/4mg daily sub lingual while inpatient. Addiction/recovery clinician met with patient yesterday and this am.
[2021-08-08] MEDS: Buprenorphine/Naloxone 8/2 mg FILM 2 FILM SUBLINGUAL (10:29)
--- NOTE | 2021-08-08 10:40 | MHC.RECOVSUP ---
Recovery Support note: Patient is a 30 year old Bangladeshi speaking biological male who uses she/her pronouns and goes by Jaelyn. Patient reported to staff that she is due for her Sublocade injection. This mortgage or loan underwriter met with patient to discuss this. Patient reports no recent substance use and toxicology is negative for opiates and fentanyl. Patient is unsure of when her last injection was and the clinic is not open to confirm. [facility] indicates patient received injection around 07/11. Patient reports she would be prescribed 16mg Suboxone once daily when she was late for her injection. Patient is requesting Suboxone at this time. Discussed case with Maya CAMERON and patient's hospitalist. Plan for patient to receive Suboxone while in the hospital and follow up with her clinic outpatient for injection.
--- NOTE | 2021-08-08 11:55 | P.PNIM_ITS ---
Subjective Subjective Date of Service: 08/08/21 Interval History: sepsis/cellulitis Review of Systems Leg erythema slow slightly improving nasal MRSA came positive. Denies any chest pain or shortness of breath or abdominal pain or fever chills or cough or phlegm. Physical Exam Vital Signs: Vital Signs: Last Vital Signs Temp 98.9 F 08/08/21 07:53 Pulse 84 08/08/21 07:53 Resp 18 08/08/21 07:53 BP 124/61 08/08/21 07:53 Pulse Ox 96 08/08/21 07:53 BMI result Body Mass Index 46.5 ? Appearance: Alert.? Oriented X3.? not in distress.? cvs: rrr, [id number] , no murmur res: clear to auscultation ,no rhonchii or wheezing abd: no rebound or guarding ,nt, bs present. ext pulses present , no cyanosis ,right leg? ext erythema/swelling , no flacutation ,warm-up to knee area(please see Ed note pic) . neuro: axo3 , nonfocal. Objective Data Active Medications Acetaminophen (Acetaminophen 325 Mg Tablet) 650 mg PO Q6H PRN PRN Reason: Pain, Mild (Pain Scale 1-3) Last Admin: 08/07/21 22:28 Dose: 650 mg Documented by: JANEE Albuterol Sulfate (Albuterol Sulfate 90 Mcg 8 Gm Inhaler) 1 puff INHALE Q6H PRN PRN Reason: Wheezing Buprenorphine/Naloxone (Buprenorphine/Naloxone 8/2 Mg Film) 2 film SUBLINGUAL DAILY [facility] Last Admin: 08/08/21 10:29 Dose: 2 film Documented by: EMILIANO Clonidine HCl (Clonidine Hcl 0.1 Mg Tablet) 0.1 mg PO BEDTIME PRN; Protocol PRN Reason: Anxiety Clonidine HCl (Clonidine Hcl 0.1 Mg Tablet) 0.1 mg PO DAILY [facility]; Protocol Last Admin: 08/08/21 09:00 Dose: Not Given Documented by: EMILIANO Non-Admin Reason: Patient Refused Docusate Sodium (Docusate Sodium 100 Mg Capsule) 100 mg PO BID [facility] Last Admin: 08/08/21 09:01 Dose: Not Given Documented by: EMILIANO Non-Admin Reason: Patient Refused Enoxaparin Sodium (Enoxaparin Sodium 40 Mg/0.4 Ml Syringe) 40 mg SUBCUT Q24H [facility] Last Admin: 08/07/21 22:29 Dose: 40 mg Documented by: JANEE Estradiol (Estradiol 0.5 Mg Tablet) 2 mg PO TID [facility] Last Admin: 08/08/21 09:16 Dose: 2 mg Documented by: EMILIANO Famotidine (Famotidine 20 Mg Tablet) 20 mg PO BID PRN PRN Reason: GERD Gabapentin (Gabapentin 300 Mg Capsule) 600 mg PO TID [facility] Last Admin: 08/08/21 09:16 Dose: 600 mg Documented by: EMILIANO Hydroxyzine HCl (Hydroxyzine Hcl 50 Mg Tablet) 100 mg PO Q6H PRN PRN Reason: Anxiety Lactated Ringer's (Lr) 1,000 mls @ 100 mls/hr IVCONT .Q10H [facility] Last Admin: 08/08/21 03:52 Dose: 100 mls/hr Documented by: JANEE Lamotrigine (Lamotrigine 100 Mg Tablet) 200 mg PO DAILY [facility] Last Admin: 08/08/21 09:15 Dose: 200 mg Documented by: EMILIANO Lorazepam (Lorazepam 1 Mg Tablet) 1 mg PO BID PRN PRN Reason: Anxiety Last Admin: 08/08/21 09:14 Dose: 1 mg Documented by: EMILIANO Naloxone HCl (Naloxone Hcl Nasal 4 Mg [place]) 4 mg NOSTRILALT Q2M PRN PRN Reason: opioid overdose Non-Formulary Medication (Lisdexamfetamine [Vyvanse]) 60 mg PO DAILY [facility] Non-Formulary Medication (Buprenorphine) 300 mg SUBCUT Q30D [facility] Ondansetron HCl (Ondansetron Odt 4 Mg Tab.Rapdis) 4 mg TRANSLINGU Q8H PRN PRN Reason: Nausea Pharmacy Consult (Consult Rx Perform Med Rec) 1 each MISCELLANE ONCE PRN PRN Reason: Consult order Pharmacy Consult (Consult Rx Vancomycin Dosing) 1 each MISCELLANE DAILY PRN PRN Reason: Consult order Polyethylene Glycol (Polyethylene Glycol 3350 17 Gm Powd.Pack) 17 gm PO DAILY PRN PRN Reason: constipation Prazosin HCl (Prazosin Hcl 1 Mg Capsule) 2 mg PO BEDTIME [facility]; Protocol Last Admin: 08/07/21 22:29 Dose: 2 mg Documented by: JANEE Prazosin HCl (Prazosin Hcl 5 Mg Capsule) 5 mg PO BEDTIME ANGELES; Protocol Last Admin: 08/07/21 22:29 Dose: 5 mg Documented by: JANEE Sodium Chloride (0.9 % Sodium Chloride Flush 3 Ml Syringe) 3 ml IVFLUSH QSHIFT [facility] Last Admin: 08/08/21 09:12 Dose: Not Given Documented by: EMILIANO Non-Admin Reason: IV Running Spironolactone (Spironolactone 25 Mg Tablet) 50 mg PO BID ANGELES; Protocol Last Admin: 08/08/21 09:15 Dose: 50 mg Documented by: EMILIANO Labs CBC & Chem 7: 08/08/21 05:20 08/08/21 05:20 Labs: Laboratory Results - last 24 hr 08/07/21 08/07/21 08/07/21 12:48 12:48 12:49 MCV 82.2 MCH 28.2 MCHC 34.3 RDW 13.1 Plt Count 257 MPV 10.1 Immature Gran % (Auto) 0.4 Neut % (Auto) 85.4 H Lymph % (Auto) 8.4 L [place] % (Auto) 5.7 Eos % (Auto) 0.0 Baso % (Auto) 0.1 Lymph # (Auto) 1.4 [place] # (Auto) 1.0 Eos # (Auto) 0.0 Baso # (Auto) 0.0 Abs Immat Gran (auto) 0.07 H Absolute Neuts (auto) 14.6 H Absolute Nucleated RBC 0.000 Nucleated RBC % (auto) 0.0 ESR 60 H PT INR APTT Anion Gap Estim Creat Clear Calc Estimated GFR Random Glucose Lactic Acid 1.0 Calcium Total Bilirubin AST ALT Alkaline Phosphatase C-Reactive Protein Total Protein Albumin Urine Color Urine Appearance Urine pH Ur Specific [place] Urine Protein Urine Glucose (UA) Urine Ketones Urine Blood Urine Nitrite Ur Leukocyte Esterase Urine RBC Urine WBC Ur Squamous Epith Cells Urine Bacteria Nasal Screen MRSA (PCR) Nasal S. aureus Screen Nasal MRSA/S.aureus Interp Urine Opiates Screen Urine Fentanyl Screen Ur Barbiturates Screen Ur Phencyclidine Scrn Ur Amphetamines Screen U Benzodiazepines Scrn Urine Cocaine Screen U Marijuana (THC) Screen COVID-19 (LOS) COVID-19 Clin Com 08/07/21 08/07/21 08/07/21 12:49 12:49 12:49 MCV MCH MCHC RDW Plt Count MPV Immature Gran % (Auto) Neut % (Auto) Lymph % (Auto) [place] % (Auto) Eos % (Auto) Baso % (Auto) Lymph # (Auto) [place] # (Auto) Eos # (Auto) Baso # (Auto) Abs Immat Gran (auto) Absolute Neuts (auto) Absolute Nucleated RBC Nucleated RBC % (auto) ESR PT INR APTT Anion Gap 15 Estim Creat Clear Calc 242.9 Estimated GFR > 60 Random Glucose 125 H D Lactic Acid Calcium 9.3 Total Bilirubin 0.5 AST 23 D ALT 29 Alkaline Phosphatase 70 C-Reactive Protein 18.86 H Total Protein 6.7 Albumin 3.6 Urine Color YELLOW Urine Appearance HAZY Urine pH 7.0 Ur Specific [place] 1.015 Urine Protein 1+ H Urine Glucose (UA) NEG Urine Ketones >=80 Urine Blood NEG Urine Nitrite NEG Ur Leukocyte Esterase NEG Urine RBC 5-9 H Urine WBC 5-9 H Ur Squamous Epith Cells 2+ Urine Bacteria NONE Nasal Screen MRSA (PCR) Nasal S. aureus Screen Nasal MRSA/S.aureus Interp Urine Opiates Screen Not Detected Urine Fentanyl Screen Not Detected Ur Barbiturates Screen Not Detected Ur Phencyclidine Scrn Not Detected Ur Amphetamines Screen POSITIVE H U Benzodiazepines Scrn Not Detected Urine Cocaine Screen Not Detected U Marijuana (THC) Screen Not Detected COVID-19 (LOS) COVID-19 Clin Com 08/07/21 08/07/21 08/07/21 13:58 14:42 18:35 MCV MCH MCHC RDW Plt Count MPV Immature Gran % (Auto) Neut % (Auto) Lymph % (Auto) [place] % (Auto) Eos % (Auto) Baso % (Auto) Lymph # (Auto) [place] # (Auto) Eos # (Auto) Baso # (Auto) Abs Immat Gran (auto) Absolute Neuts (auto) Absolute Nucleated RBC Nucleated RBC % (auto) ESR PT 12.5 INR 1.1 APTT 28.3 Anion Gap Estim Creat Clear Calc Estimated GFR Random Glucose Lactic Acid Calcium Total Bilirubin AST ALT Alkaline Phosphatase C-Reactive Protein Total Protein Albumin Urine Color Urine Appearance Urine pH Ur Specific [place] Urine Protein Urine Glucose (UA) Urine Ketones Urine Blood Urine Nitrite Ur Leukocyte Esterase Urine RBC Urine WBC Ur Squamous Epith Cells Urine Bacteria Nasal Screen MRSA (PCR) POSITIVE A Nasal S. aureus Screen POSITIVE A Nasal MRSA/S.aureus Interp SEE NOTE Urine Opiates Screen Urine Fentanyl Screen Ur Barbiturates Screen Ur Phencyclidine Scrn Ur Amphetamines Screen U Benzodiazepines Scrn Urine Cocaine Screen U Marijuana (THC) Screen COVID-19 (LOS) Negative COVID-19 Clin Com See Note 08/08/21 08/08/21 05:20 05:20 MCV 82.7 MCH 28.6 MCHC 34.6 RDW 13.2 Plt Count 261 MPV 10.3 Immature Gran % (Auto) Neut % (Auto) Lymph % (Auto) [place] % (Auto) Eos % (Auto) Baso % (Auto) Lymph # (Auto) [place] # (Auto) Eos # (Auto) Baso # (Auto) Abs Immat Gran (auto) Absolute Neuts (auto) Absolute Nucleated RBC 0.000 Nucleated RBC % (auto) 0.0 ESR PT INR APTT Anion Gap 12 Estim Creat Clear Calc 236.7 Estimated GFR > 60 Random Glucose 101 Lactic Acid Calcium 8.3 L D Total Bilirubin AST ALT Alkaline Phosphatase C-Reactive Protein Total Protein Albumin Urine Color Urine Appearance Urine pH Ur Specific [place] Urine Protein Urine Glucose (UA) Urine Ketones Urine Blood Urine Nitrite Ur Leukocyte Esterase Urine RBC Urine WBC Ur Squamous Epith Cells Urine Bacteria Nasal Screen MRSA (PCR) Nasal S. aureus Screen Nasal MRSA/S.aureus Interp Urine Opiates Screen Urine Fentanyl Screen Ur Barbiturates Screen Ur Phencyclidine Scrn Ur Amphetamines Screen U Benzodiazepines Scrn Urine Cocaine Screen U Marijuana (THC) Screen COVID-19 (LOS) COVID-19 Clin Com Assessment and Plan (1) Sepsis: Status: Acute (2) Cellulitis: Status: Acute Plan 30-year-old? transgender female with ? Sepsis/cellulitis. ? Sepsis/cellulitis ?ESR, CRP elevated, leukocytosis nasal mrsa sceen possitive ?normal lactic acid ?blood cultures sent, sepsis exam completed gentle iv hydration antibiotics changed to vanco/add zosyn ?id evaluation PTSD/ADHD/ borderline personality/psychoactive substance induced mood use disorder: ?continue home medications. history of opioid use disorder:? On? sublocade. ?addiction consult is placed. Morbid obesity: encouraged to cut down calories and weight loss. ?DVT prophylaxis:s/c lovenox. inpatient need: sepsis/cellulitis- need iv antibiotics Quality Stroke Does the patient have a stroke diagnosis?: No VTE Prior VTE?: No VTE Risk Level:: Medical - moderate - high VTE Device Contraindication: N/A - Device Ordered VTE Drug Contraindication: N/A - Med Ordered
--- NOTE | 2021-08-08 12:12 | PHA.PROG ---
Admission Date/Time: August 07, 2021 17:57 Indication: skin/skin structure Weight in k kg Adjusted body weight in K.6 kg [place] body weight in K kg Obesity Dosing Indication % IBW: Serum Creatinine - Last 168 Hours 08/07/21 08/08/21 12:49 05:20 Creatinine 0.64 0.65 Estimated CrCl and GFR - Last 168 Hours 08/07/21 08/08/21 12:49 05:20 Estim Creat Clear Calc 242.9 236.7 Estimated GFR > 60 > 60 Vancomycin Loading Dose: 2000 mg Current Vancomycin Dosing Regimen: 1250 mg q12h Vancomycin Monitoring using AUC goal of 400 - 600 range with trough as surrogate marker: predicted auc 555 Date and Time for next Vancomycin Level to be drawn: 08/09/21 @2100 ( 3 hours prior to 4th dose) Pharmacist Comments on Vancomycin Plan: obese model used. monitor cr daily. Vancomycin dosing will take advantage of [employer] as a clinical decision support tool that uses Bayesian modeling to calculate individual patient's pharmacokinetic parameters and forecast the patient's drug concentration time course with the target goal AUC 24 range of 400 - 600 mg/L/hr.
[2021-08-08] MEDS: Piperacillin Sodium/Tazobactam 3.375 GM in 0.9 % Sodium Chloride 50 ML IV ×2 (12:41→18:45)
--- NOTE | 2021-08-08 14:22 | MHC.CM.PN ---
EMR REVIEWED, CM MET W/PT WHO IS A&O, [facility], PT RECEIVES BOTH [facility] AND [facility]. PT REPORTS BEING OFF HEROIN X1 YR AND GIVES CREDIT TO HER SUBOXONE, PT IS INDEP W/ALL CARE AND DENIES USE OF DME. PT REPORTS HER PCP IS AT [facility], HAD J&J VACCINE AND NO BOOSTER, PT DECLINES TO COMPLETE A HCP W/CM AND DECLINES NEED FOR EDUCATION. PT REPORTS HE DOESN'T HAVE CONTACT INFO FOR PROGRAM AND REQUESTS CM EMAIL HER CLINICIAN NASIM AT [email or web address] TO LET HER KNOW SHE WAS ADMITTED, REASON FOR ADMISSION AND THAT SHE WILL REMAIN INPT. CM WILL CONTACT AFTER COMPLETING THIS NOTE. D/C PLAN: RETURN TO [facility] W/STAFF FOR TRANSPORT.
[2021-08-08] MEDS: Acetaminophen 325 MG TABLET 650 MG PO (15:59)
[2021-08-08] MEDS: Prazosin HCL 1 MG CAPSULE 2 MG PO (20:46)
[2021-08-08] MEDS: Prazosin HCL 5 MG CAPSULE PO (20:47)
[2021-08-08] MEDS: Docusate Sodium 100 MG CAPSULE PO (20:48)
[2021-08-08] MEDS: Enoxaparin Sodium 40 MG/0.4 ML SYRINGE SUBCUT (20:48)
[2021-08-08] MEDS: vancomycin HCL 1,250 MG in 0.9 % Sodium Chloride 250 ML 166.67 MG IV (23:03)
[2021-08-09] MEDS: Piperacillin Sodium/Tazobactam 3.375 GM in 0.9 % Sodium Chloride 50 ML IV ×4 (00:52→18:07)
[2021-08-09 03:09] VITALS: BP 115/56; PULSE 83; RESP 18; TEMP 37.1; O2SAT 94
[2021-08-09 07:14] VITALS: BP 117/59; PULSE 77; RESP 16; TEMP 36.6; O2SAT 97
--- NOTE | 2021-08-09 07:35 | HO.PM.IMPN ---
Subjective Subjective Date of Service: 08/09/21 Interval History: ?Leg erythema slow slightly improving Review of Systems leg swelling and erythema as somewhat better today, still has lot leg pain denies any chest pain or shortness of breath or abdominal pain or fever chills Physical Exam Vital Signs: Vital Signs: Last Vital Signs Temp 97.8 F 08/09/21 07:14 Pulse 77 08/09/21 07:14 Resp 16 08/09/21 07:14 BP 117/59 L 08/09/21 07:14 Pulse Ox 97 08/09/21 07:14 BMI result Body Mass Index 46.5 Appearance: Alert.? Oriented X3.? not in distress.? cvs: rrr, [id number] , no murmur res: clear to auscultation ,no rhonchii or wheezing abd: no rebound or guarding ,nt, bs present. ext pulses present , no cyanosis ,right leg? ext erythema/swelling , no flacutation ,warm-up to knee area(please see Ed note pic) . neuro: axo3 , nonfocal. Objective Data Active Medications Acetaminophen (Acetaminophen 325 Mg Tablet) 650 mg PO Q6H PRN PRN Reason: Pain, Mild (Pain Scale 1-3) Last Admin: 08/08/21 15:59 Dose: 650 mg Documented by: EMILIANO Albuterol Sulfate (Albuterol Sulfate 90 Mcg 8 Gm Inhaler) 1 puff INHALE Q6H PRN PRN Reason: Wheezing Amphetamine/Dextroamphetamine (Dextroamphetamine/Amphetamine Xr 10 Mg Cap.Er.24h) 10 mg PO DAILY [facility] Buprenorphine/Naloxone (Buprenorphine/Naloxone 8/2 Mg Film) 2 film SUBLINGUAL DAILY [facility] Last Admin: 08/08/21 10:29 Dose: 2 film Documented by: EMILIANO Clonidine HCl (Clonidine Hcl 0.1 Mg Tablet) 0.1 mg PO BEDTIME PRN; Protocol PRN Reason: Anxiety Clonidine HCl (Clonidine Hcl 0.1 Mg Tablet) 0.1 mg PO DAILY [facility]; Protocol Last Admin: 08/08/21 09:00 Dose: Not Given Documented by: EMILIANO Non-Admin Reason: Patient Refused Docusate Sodium (Docusate Sodium 100 Mg Capsule) 100 mg PO BID [facility] Last Admin: 08/08/21 20:48 Dose: 100 mg Documented by: ZACKARY Enoxaparin Sodium (Enoxaparin Sodium 40 Mg/0.4 Ml Syringe) 40 mg SUBCUT Q24H [facility] Last Admin: 08/08/21 20:48 Dose: 40 mg Documented by: ZACKARY Estradiol (Estradiol 0.5 Mg Tablet) 2 mg PO TID [facility] Last Admin: 08/08/21 20:45 Dose: 2 mg Documented by: ZACKARY Famotidine (Famotidine 20 Mg Tablet) 20 mg PO BID PRN PRN Reason: GERD Gabapentin (Gabapentin 300 Mg Capsule) 600 mg PO TID [facility] Last Admin: 08/08/21 20:47 Dose: 600 mg Documented by: ZACKARY Hydroxyzine HCl (Hydroxyzine Hcl 50 Mg Tablet) 100 mg PO Q6H PRN PRN Reason: Anxiety Lactated Ringer's (Lr) 1,000 mls @ 100 mls/hr IVCONT .Q10H [facility] Last Infusion: 08/09/21 06:02 Dose: 0 mls/hr Documented by: ZACKARY Piperacillin Sod/Tazobactam (Sod 3.375 gm/ Sodium Chloride) 50 mls @ 100 mls/hr IV Q6H [facility] Last Infusion: 08/09/21 06:31 Dose: 0 mls/hr Documented by: JONA Vancomycin HCl 1,250 mg/ (Sodium Chloride) 250 mls @ 166.667 mls/hr IV Q12H [facility] Last Infusion: 08/09/21 00:35 Dose: 0 mls/hr Documented by: ZACKARY Lamotrigine (Lamotrigine 100 Mg Tablet) 200 mg PO DAILY [facility] Last Admin: 08/08/21 09:15 Dose: 200 mg Documented by: EMILIANO Lorazepam (Lorazepam 1 Mg Tablet) 1 mg PO BID PRN PRN Reason: Anxiety Last Admin: 08/08/21 20:46 Dose: 1 mg Documented by: ZACKARY Naloxone HCl (Naloxone Hcl Nasal 4 Mg [place]) 4 mg NOSTRILALT Q2M PRN PRN Reason: opioid overdose Non-Formulary Medication (Buprenorphine) 300 mg SUBCUT Q30D [facility] Ondansetron HCl (Ondansetron Odt 4 Mg Tab.Rapdis) 4 mg TRANSLINGU Q8H PRN PRN Reason: Nausea Pharmacy Consult (Consult Rx Perform Med Rec) 1 each MISCELLANE ONCE PRN PRN Reason: Consult order Pharmacy Consult (Consult Rx Vancomycin Dosing) 1 each MISCELLANE DAILY PRN PRN Reason: Consult order Polyethylene Glycol (Polyethylene Glycol 3350 17 Gm Powd.Pack) 17 gm PO DAILY PRN PRN Reason: constipation Prazosin HCl (Prazosin Hcl 1 Mg Capsule) 2 mg PO BEDTIME ANGEL[facility]; Protocol Last Admin: 08/08/21 20:46 Dose: 2 mg Documented by: ZACKARY Prazosin HCl (Prazosin Hcl 5 Mg Capsule) 5 mg PO BEDTIME AGNEL[facility]; Protocol Last Admin: 08/08/21 20:47 Dose: 5 mg Documented by: ZACKARY Sodium Chloride (0.9 % Sodium Chloride Flush 3 Ml Syringe) 3 ml IVFLUSH QSHIFT ANGELES Last Admin: 08/09/21 07:33 Dose: Not Given Documented by: JONA Non-Admin Reason: IV Running Spironolactone (Spironolactone 25 Mg Tablet) 50 mg PO BID AN[facility]; Protocol Last Admin: 08/08/21 20:46 Dose: 50 mg Documented by: ZACKARY Labs CBC & Chem 7: 08/08/21 05:20 08/09/21 06:10 Labs: Laboratory Results - last 24 hr 08/07/21 18:35 Nasal Screen MRSA (PCR) POSITIVE A Nasal S. aureus Screen POSITIVE A Nasal MRSA/S.aureus Interp SEE NOTE Microbiology Microbiology Results: Microbiology 08/07/21 14:42 Blood Culture - Preliminary Blood - Venous No growth after 24 hours. 08/07/21 12:48 Blood Culture - Preliminary Blood - Venous No growth after 24 hours. 08/07/21 Unknown Urine Culture - Final Urine clean catch - Urine bolton top No growth. Assessment and Plan (1) Sepsis: Status: Acute (2) Cellulitis: Status: Acute Plan 30-year-old? transgender female with ? Sepsis/cellulitis. ? Sepsis/cellulitis ?ESR, CRP elevated, leukocytosis nasal mrsa sceen possitive ?normal lactic acid ?blood cultures pendin gentle iv hydration antibiotics changed to vanco/add zosyn vanco trough ?id evaluation PTSD/ADHD/ borderline personality/psychoactive substance induced mood use disorder: ?continue home medications. history of opioid use disorder:? On? sublocade. ?addiction consult is placed. Morbid obesity: encouraged to cut down calories and weight loss. ?DVT prophylaxis:s/c lovenox. inpatient need: sepsis/cellulitis- need iv antibiotics Quality Stroke Does the patient have a stroke diagnosis?: No VTE Prior VTE?: No VTE Risk Level:: Medical - moderate - high VTE Device Contraindication: N/A - Device Ordered VTE Drug Contraindication: N/A - Med Ordered
[2021-08-09 07:37] LABS: Creatinine Clr Calc Pharmacy 244.2; Estimated Glomerular Filt Rate > 60
[2021-08-09 07:47] LABS: Potassium 3.4 mmol/L (3.3-5.1)
--- NOTE | 2021-08-09 08:18 | HE.PHANOTE ---
VANCO DOSING Continue the same dosing. Next trough tonight at 2100
[2021-08-09] MEDS: lamoTRIgine 100 MG TABLET 200 MG PO (09:12)
[2021-08-09] MEDS: Spironolactone 25 MG TABLET 50 MG PO ×2 (09:12→20:55)
[2021-08-09] MEDS: Gabapentin 300 MG CAPSULE 600 MG PO ×3 (09:13→20:55)
[2021-08-09] MEDS: Buprenorphine/Naloxone 8/2 mg FILM 2 FILM SUBLINGUAL (09:13)
[2021-08-09] MEDS: Dextroamphetamine/Amphetamine XR 10 MG CAP.ER.24H PO (09:13)
[2021-08-09] MEDS: LORazepam 1 MG TABLET PO ×2 (09:16→20:58)
[2021-08-09] MEDS: Lactated Ringers 1,000 ML 100 ML IVCONT (10:12)
[2021-08-09] MEDS: estradioL 0.5 MG TABLET 2 MG PO ×3 (10:12→20:55)
[2021-08-09 11:20] VITALS: BP 109/64; PULSE 75; RESP 18; TEMP 36.4; O2SAT 96
[2021-08-09] MEDS: vancomycin HCL 1,250 MG in 0.9 % Sodium Chloride 250 ML 166.67 MG IV (11:43)
[2021-08-09 15:33] VITALS: BP 132/61; PULSE 77; RESP 18; TEMP 36.4; O2SAT 99
[2021-08-09 19:39] VITALS: BP 132/60; PULSE 80; RESP 18; TEMP 36.2; O2SAT 96
[2021-08-09] MEDS: Enoxaparin Sodium 40 MG/0.4 ML SYRINGE SUBCUT (20:55)
[2021-08-09] MEDS: Prazosin HCL 5 MG CAPSULE PO (20:55)
[2021-08-09] MEDS: Prazosin HCL 1 MG CAPSULE 2 MG PO (20:55)
[2021-08-09] MEDS: Docusate Sodium 100 MG CAPSULE PO (20:55)
[2021-08-09 22:03] LABS: Vancomycin Trough 5.7 mcg/mL (10.0-20.0)
--- NOTE | 2021-08-09 22:46 | W.PM.IDCN ---
History of Present Illness Data of Consult Service Date: 08/08/21 Requesting physician: Kiersten Bhagat Primary Care Provider: Unknown Physician HPI Reason for consult: sepsis,cellulitis She presents to hospital with right lower extremity redness and swelling. She has WBC of 17,000 as well as heart rate of 95. She has had symptoms for three days and cut leg shaving before then. Review of Systems Review of Systems: Yes all other systems are reviewed and are negative PMFSH Past Medical History Medical History Abscess of left upper extremity ADHD Anxiety Asthma Borderline personality disorder Cocaine substance abuse Depression HTN (hypertension) IBS (irritable bowel syndrome) Opiate misuse Opioid use disorder, severe, dependence Perianal cyst PTSD (post-traumatic stress disorder) Tibial torsion, bilateral Family History Family history: reviewed and not pertinent Social History Social History Household Members: Other Housing: Other Housing Other:: [facility] Do you presently have visiting nurse or other home services: No Alcohol intake: never Patient Tobacco Use Status: Current everyday Tobacco user Tobacco use type: Cigarette Cigarette Packs Per Day: 1 Cigarettes Per Day: 20.0 e-Cigarette/Vaping Use: Never Used Second Hand Smoke Exposure: Yes Substance Use Type: Crack/Cocaine, Heroin and Methamphetamine service: No Current occupational status: unemployed Sexual orientation: Did not discuss Meds Allergies Allergy/AdvReac Type Severity Reaction Status Date / Time aripiprazole [From ABILIFY] Allergy Unknown UNKNOWN Verified 10/18/20 16:33 Active Medications: Current Medications Acetaminophen (Acetaminophen 325 Mg Tablet) 650 mg PO Q6H PRN PRN Reason: Pain, Mild (Pain Scale 1-3) Last Admin: 08/08/21 15:59 Dose: 650 mg Documented by: Albuterol Sulfate (Albuterol Sulfate 90 Mcg 8 Gm Inhaler) 1 puff INHALE Q6H PRN PRN Reason: Wheezing Amphetamine/Dextroamphetamine (Dextroamphetamine/Amphetamine Xr 10 Mg Cap.Er.24h) 10 mg PO DAILY [facility] Last Admin: 08/09/21 09:13 Dose: 10 mg Documented by: Buprenorphine/Naloxone (Buprenorphine/Naloxone 8/2 Mg Film) 2 film SUBLINGUAL DAILY [facility] Last Admin: 08/09/21 09:13 Dose: 2 film Documented by: Clonidine HCl (Clonidine Hcl 0.1 Mg Tablet) 0.1 mg PO BEDTIME PRN; Protocol PRN Reason: Anxiety Clonidine HCl (Clonidine Hcl 0.1 Mg Tablet) 0.1 mg PO DAILY [facility]; Protocol Last Admin: 08/09/21 09:13 Dose: Not Given Documented by: Docusate Sodium (Docusate Sodium 100 Mg Capsule) 100 mg PO BID [facility] Last Admin: 08/09/21 20:55 Dose: 100 mg Documented by: Enoxaparin Sodium (Enoxaparin Sodium 40 Mg/0.4 Ml Syringe) 40 mg SUBCUT Q24H [facility] Last Admin: 08/09/21 20:55 Dose: 40 mg Documented by: Estradiol (Estradiol 0.5 Mg Tablet) 2 mg PO TID [facility] Last Admin: 08/09/21 20:55 Dose: 2 mg Documented by: Famotidine (Famotidine 20 Mg Tablet) 20 mg PO BID PRN PRN Reason: GERD Gabapentin (Gabapentin 300 Mg Capsule) 600 mg PO TID [facility] Last Admin: 08/09/21 20:55 Dose: 600 mg Documented by: Hydroxyzine HCl (Hydroxyzine Hcl 50 Mg Tablet) 100 mg PO Q6H PRN PRN Reason: Anxiety Piperacillin Sod/Tazobactam (Sod 3.375 gm/ Sodium Chloride) 50 mls @ 100 mls/hr IV Q6H [facility] Last Infusion: 08/09/21 18:37 Dose: Infused Documented by: Vancomycin HCl 1,250 mg/ (Sodium Chloride) 250 mls @ 166.667 mls/hr IV Q12H [facility] Last Infusion: 08/09/21 13:13 Dose: Infused Documented by: Lamotrigine (Lamotrigine 100 Mg Tablet) 200 mg PO DAILY [facility] Last Admin: 08/09/21 09:12 Dose: 200 mg Documented by: Lorazepam (Lorazepam 1 Mg Tablet) 1 mg PO BID PRN PRN Reason: Anxiety Last Admin: 08/09/21 20:58 Dose: 1 mg Documented by: Naloxone HCl (Naloxone Hcl Nasal 4 Mg [place]) 4 mg NOSTRILALT Q2M PRN PRN Reason: opioid overdose Ondansetron HCl (Ondansetron Odt 4 Mg Tab.Rapdis) 4 mg TRANSLINGU Q8H PRN PRN Reason: Nausea Pharmacy Consult (Consult Rx Perform Med Rec) 1 each MISCELLANE ONCE PRN PRN Reason: Consult order Pharmacy Consult (Consult Rx Vancomycin Dosing) 1 each MISCELLANE DAILY PRN PRN Reason: Consult order Polyethylene Glycol (Polyethylene Glycol 3350 17 Gm Powd.Pack) 17 gm PO DAILY PRN PRN Reason: constipation Prazosin HCl (Prazosin Hcl 1 Mg Capsule) 2 mg PO BEDTIME ANGEL[facility]; Protocol Last Admin: 08/09/21 20:55 Dose: 2 mg Documented by: Prazosin HCl (Prazosin Hcl 5 Mg Capsule) 5 mg PO BEDTIME [facility]; Protocol Last Admin: 08/09/21 20:55 Dose: 5 mg Documented by: Sodium Chloride (0.9 % Sodium Chloride Flush 3 Ml Syringe) 3 ml IVFLUSH QSHIFT [facility] Last Admin: 08/09/21 14:58 Dose: Not Given Documented by: Spironolactone (Spironolactone 25 Mg Tablet) 50 mg PO BID [facility]; Protocol Last Admin: 08/09/21 20:55 Dose: 50 mg Documented by: Home Medications Medication Instructions Recorded Confirmed Last Taken Type albuterol sulfate 90 mcg/actuation 1 puff INHALATION Q6H PRN 08/07/21 08/07/21 Unknown History aerosol inhaler (Ventolin HFA) buprenorphine 300 mg/1.5 mL 300 mg SUBCUT QMONTH 08/07/21 08/07/21 Unknown History solution,exten.rel.subcutaneous syringe (Sublocade) clonidine HCl 0.1 mg tablet 0.1 mg PO BEDTIME PRN 08/07/21 08/07/21 Unknown History clonidine HCl 0.1 mg tablet 0.1 mg PO DAILY 08/07/21 08/07/21 Unknown History docusate sodium 100 mg capsule 100 mg PO BID 08/07/21 08/07/21 Unknown History estradiol 2 mg tablet 2 mg PO TID 08/07/21 08/07/21 Unknown History lamotrigine 100 mg tablet 200 mg PO DAILY 08/07/21 08/07/21 Unknown History lisdexamfetamine 60 mg capsule 60 mg PO DAILY 08/07/21 08/07/21 Unknown History (Vyvanse) lorazepam 1 mg tablet 1 mg PO BID PRN 08/07/21 08/07/21 Unknown History ondansetron 4 mg disintegrating 4 mg PO Q8H PRN 08/07/21 08/07/21 Unknown History tablet prazosin 2 mg capsule 2 mg PO BEDTIME 08/07/21 08/07/21 Unknown History prazosin 5 mg capsule 5 mg PO BEDTIME 08/07/21 08/07/21 Unknown History spironolactone 50 mg tablet 50 mg PO BID 08/07/21 08/07/21 Unknown History Physical Exam Vital Signs: Vital Signs: Last Vital Signs Temp 97.2 F 08/09/21 19:39 Pulse 80 08/09/21 19:39 Resp 18 08/09/21 19:39 BP 132/60 08/09/21 19:39 Pulse Ox 96 08/09/21 19:39 BMI result Body Mass Index 46.5 Const: General: cooperative HEENT: Head: Yes normal to inspection Mouth: Normal oral and palatal mucosa present Eyes: General: appearance normal, both eyes and all related structures Pupils: Equal, round and reactive pupils present Resp: Effort & Inspection: normal respiratory effort Cardio: Rate: regular rate Rhythm: regular rhythm GI: Palpation (GI): Soft to palpation and nontender : General: Yes no CVA tenderness Back/Spine/Pelvis: Back: no CVA tenderness Neuro: Cranial nerves: Yes Equal, round and reactive pupils present Extrem: Other: RLE redness and swelling knee down Results Labs CBC & Chem 7: 08/08/21 05:20 08/09/21 06:10 Labs: BMP 08/09/21 06:10 Potassium 3.4 Creatinine 0.63 Microbiology Microbiology Results: Microbiology 08/07/21 14:42 Blood - Venous Blood Culture - Preliminary No growth after 48 hours. 08/07/21 12:48 Blood - Venous Blood Culture - Preliminary No growth after 48 hours. 08/07/21 Unknown Urine clean catch - Urine bolton top Urine Culture - Final No growth. Assessment and Plan (1) Sepsis: Status: Acute She has possible strep or staph She is responding to antibiotics (2) Cellulitis: Status: Acute Plan Would continue Vancomycin and Zosyn for now Await cultures When improved po Doxycycline and Augmentin for 10 days total. Better shaving practices. Lamisil between toes for a week
[2021-08-09] MEDS: vancomycin HCL 1,250 MG in 0.9 % Sodium Chloride 250 ML 166.6 MG IV (23:21)
[2021-08-09] MEDS: 0.9 % Sodium Chloride Flush 3 ML SYRINGE IVFLUSH (23:21)
[2021-08-09 23:50] VITALS: BP 122/64; PULSE 87; RESP 18; TEMP 37.2; O2SAT 98
[2021-08-10] MEDS: Piperacillin Sodium/Tazobactam 3.375 GM in 0.9 % Sodium Chloride 50 ML IV ×4 (02:16→20:50)
[2021-08-10 03:33] VITALS: BP 116/62; PULSE 76; RESP 18; TEMP 36.8; O2SAT 98
[2021-08-10 06:29] LABS: Anion Gap 12 (12-20); Blood Urea Nitrogen 6 mg/dL (9-16); C Reactive Protein 5.76 mg/dL (< or = 0.50); Calcium 8.1 mg/dL (8.4-10.2); Carbon Dioxide 30 mmol/L (22-29); Chloride 103 mmol/L (96-108); Creatinine Clr Calc Pharmacy 252.2; Estimated Glomerular Filt Rate > 60; Glucose Random 107 mg/dL (60-115); Potassium 3.5 mmol/L (3.3-5.1); Sodium 141 mmol/L (135-145)
[2021-08-10 07:31] VITALS: BP 105/55; PULSE 74; RESP 18; TEMP 36.6; O2SAT 94
--- NOTE | 2021-08-10 07:37 | HO.PM.IMPN ---
Subjective Subjective Date of Service: 08/10/21 Interval History: cellulitis Review of Systems slight improvement from yesterday, still has leg pain and erythema. Physical Exam Vital Signs: Vital Signs: Last Vital Signs Temp 97.9 F 08/10/21 07:31 Pulse 74 08/10/21 07:31 Resp 18 08/10/21 07:31 BP 105/55 L 08/10/21 07:31 Pulse Ox 94 08/10/21 07:31 BMI result Body Mass Index 46.5 ? Appearance: Alert.? Oriented X3.? not in distress.? cvs: rrr, [id number] , no murmur res: clear to auscultation ,no rhonchii or wheezing abd: no rebound or guarding ,nt, bs present. ext pulses present , no cyanosis ,right leg? ext erythema/swelling , no flacutation ,warm-up to knee area(please see Ed note pic) and upper thigh area . neuro: axo3 , nonfocal. Objective Data Active Medications Acetaminophen (Acetaminophen 325 Mg Tablet) 650 mg PO Q6H PRN PRN Reason: Pain, Mild (Pain Scale 1-3) Last Admin: 08/08/21 15:59 Dose: 650 mg Documented by: EMILIANO Albuterol Sulfate (Albuterol Sulfate 90 Mcg 8 Gm Inhaler) 1 puff INHALE Q6H PRN PRN Reason: Wheezing Amphetamine/Dextroamphetamine (Dextroamphetamine/Amphetamine Xr 10 Mg Cap.Er.24h) 10 mg PO DAILY [facility] Last Admin: 08/09/21 09:13 Dose: 10 mg Documented by: JONA Buprenorphine/Naloxone (Buprenorphine/Naloxone 8/2 Mg Film) 2 film SUBLINGUAL DAILY [facility] Last Admin: 08/09/21 09:13 Dose: 2 film Documented by: JONA Clonidine HCl (Clonidine Hcl 0.1 Mg Tablet) 0.1 mg PO BEDTIME PRN; Protocol PRN Reason: Anxiety Clonidine HCl (Clonidine Hcl 0.1 Mg Tablet) 0.1 mg PO DAILY [facility]; Protocol Last Admin: 08/09/21 09:13 Dose: Not Given Documented by: JONA Non-Admin Reason: Patient Refused Docusate Sodium (Docusate Sodium 100 Mg Capsule) 100 mg PO BID [facility] Last Admin: 08/09/21 20:55 Dose: 100 mg Documented by: DALLIN Enoxaparin Sodium (Enoxaparin Sodium 40 Mg/0.4 Ml Syringe) 40 mg SUBCUT Q24H [facility] Last Admin: 08/09/21 20:55 Dose: 40 mg Documented by: DALLIN Estradiol (Estradiol 0.5 Mg Tablet) 2 mg PO TID [facility] Last Admin: 08/09/21 20:55 Dose: 2 mg Documented by: DALLIN Famotidine (Famotidine 20 Mg Tablet) 20 mg PO BID PRN PRN Reason: GERD Gabapentin (Gabapentin 300 Mg Capsule) 600 mg PO TID [facility] Last Admin: 08/09/21 20:55 Dose: 600 mg Documented by: DALLIN Hydroxyzine HCl (Hydroxyzine Hcl 50 Mg Tablet) 100 mg PO Q6H PRN PRN Reason: Anxiety Piperacillin Sod/Tazobactam (Sod 3.375 gm/ Sodium Chloride) 50 mls @ 100 mls/hr IV Q6H [facility] Last Infusion: 08/10/21 03:12 Dose: 0 mls/hr Documented by: DALLIN Vancomycin HCl 1,250 mg/ (Sodium Chloride) 250 mls @ 166.667 mls/hr IV Q12H [facility] Last Infusion: 08/10/21 01:33 Dose: 0 mls/hr Documented by: DALLIN Lamotrigine (Lamotrigine 100 Mg Tablet) 200 mg PO DAILY [facility] Last Admin: 08/09/21 09:12 Dose: 200 mg Documented by: JONA Lorazepam (Lorazepam 1 Mg Tablet) 1 mg PO BID PRN PRN Reason: Anxiety Last Admin: 08/09/21 20:58 Dose: 1 mg Documented by: DALLIN Naloxone HCl (Naloxone Hcl Nasal 4 Mg [place]) 4 mg NOSTRILALT Q2M PRN PRN Reason: opioid overdose Ondansetron HCl (Ondansetron Odt 4 Mg Tab.Rapdis) 4 mg TRANSLINGU Q8H PRN PRN Reason: Nausea Pharmacy Consult (Consult Rx Perform Med Rec) 1 each MISCELLANE ONCE PRN PRN Reason: Consult order Pharmacy Consult (Consult Rx Vancomycin Dosing) 1 each MISCELLANE DAILY PRN PRN Reason: Consult order Polyethylene Glycol (Polyethylene Glycol 3350 17 Gm Powd.Pack) 17 gm PO DAILY PRN PRN Reason: constipation Prazosin HCl (Prazosin Hcl 1 Mg Capsule) 2 mg PO BEDTIME [facility]; Protocol Last Admin: 08/09/21 20:55 Dose: 2 mg Documented by: DALLIN Prazosin HCl (Prazosin Hcl 5 Mg Capsule) 5 mg PO BEDTIME [facility]; Protocol Last Admin: 08/09/21 20:55 Dose: 5 mg Documented by: DALLIN Sodium Chloride (0.9 % Sodium Chloride Flush 3 Ml Syringe) 3 ml IVFLUSH QSHIFT [facility] Last Admin: 08/09/21 23:21 Dose: 3 ml Documented by: DALLIN Spironolactone (Spironolactone 25 Mg Tablet) 50 mg PO BID [facility]; Protocol Last Admin: 08/09/21 20:55 Dose: 50 mg Documented by: DALLIN Labs CBC & Chem 7: 08/08/21 05:20 08/10/21 05:57 Labs: Laboratory Results - last 24 hr 08/09/21 08/09/21 08/10/21 06:10 21:16 05:57 Anion Gap Estim Creat Clear Calc 244.2 Cancelled Estimated GFR > 60 Cancelled Random Glucose Calcium C-Reactive Protein Vancomycin Trough 5.7 L 08/10/21 05:57 Anion Gap 12 Estim Creat Clear Calc 252.2 Estimated GFR > 60 Random Glucose 107 Calcium 8.1 L C-Reactive Protein 5.76 H Vancomycin Trough Microbiology Microbiology Results: Microbiology 08/07/21 14:42 Blood Culture - Preliminary Blood - Venous No growth after 48 hours. 08/07/21 12:48 Blood Culture - Preliminary Blood - Venous No growth after 48 hours. Assessment and Plan (1) Sepsis: Status: Acute (2) Cellulitis: Status: Acute Plan 30-year-old? transgender female with ? Sepsis/cellulitis. ? Sepsis/cellulitis ?ESR elevated -repeat pending, CRP elevated but improving, leukocytosis nasal mrsa sceen possitive ?normal lactic acid ?blood cultures pendin gentle iv hydration antibiotics changed to vanco/add zosyn vanco trough 5.7 ?id evaluation noteed- continue antibiotics above, may need to switch to po antibiotics once imporves. PTSD/ADHD/ borderline personality/psychoactive substance induced mood use disorder: ?continue home medications. history of opioid use disorder:? On? sublocade. ?addiction consult is placed. Morbid obesity: encouraged to cut down calories and weight loss. ?DVT prophylaxis:s/c lovenox. inpatient need: sepsis/cellulitis- need iv antibiotics Quality Stroke Does the patient have a stroke diagnosis?: No VTE Prior VTE?: No VTE Risk Level:: Medical - moderate - high VTE Device Contraindication: N/A - Device Ordered VTE Drug Contraindication: N/A - Med Ordered
[2021-08-10 07:44] LABS: HIV AB/AG Nonreactive (Nonreactive)
[2021-08-10 07:50] LABS: Erythrocyte Sedimentation Rate 59 MM/HR (0-15)
[2021-08-10] MEDS: Gabapentin 300 MG CAPSULE 600 MG PO ×3 (09:08→20:50)
[2021-08-10] MEDS: estradioL 0.5 MG TABLET 2 MG PO ×3 (09:09→20:49)
[2021-08-10] MEDS: Docusate Sodium 100 MG CAPSULE PO ×2 (09:09→20:50)
[2021-08-10] MEDS: Dextroamphetamine/Amphetamine XR 10 MG CAP.ER.24H PO (09:09)
[2021-08-10] MEDS: Spironolactone 25 MG TABLET 50 MG PO ×2 (09:10→20:50)
[2021-08-10] MEDS: 0.9 % Sodium Chloride Flush 3 ML SYRINGE IVFLUSH ×3 (09:10→20:50)
[2021-08-10] MEDS: lamoTRIgine 100 MG TABLET 200 MG PO (09:10)
[2021-08-10] MEDS: Buprenorphine/Naloxone 8/2 mg FILM 2 FILM SUBLINGUAL (09:10)
--- NOTE | 2021-08-10 09:22 | HE.PHANOTE ---
Addendum entered by Tori Cuellar [facility] 08/10/21 09:28: next trough 08/11/21 @0900 ( not 1100) Addendum entered by Tori Cuellar [facility] 08/10/21 09:27: predicted auc with 1750 q12h = [id number] Original Note: Vancomycin Dosing Addendum Vancomycin trough last night 5.7 and same dose continued. Today Increased dose to 1750 q12h to attain higher therapeutic levels and will get a level after two doses and then reassess. Cr stable. Next trough 08/11/21 @1100.
[2021-08-10 12:00] VITALS: BP 141/76; PULSE 85; RESP 18; TEMP 36.2; O2SAT 96
[2021-08-10] MEDS: vancomycin HCL 1,000 MG, vancomycin HCL 750 MG in 0.9 % Sodium Chloride 500 ML 267.5 MG IV ×2 (12:14→23:38)
[2021-08-10] MEDS: LORazepam 1 MG TABLET PO ×2 (12:18→20:50)
[2021-08-10 15:13] VITALS: BP 132/75; PULSE 74; RESP 18; TEMP 36.3; O2SAT 98
[2021-08-10 19:35] VITALS: BP 132/60; PULSE 82; RESP 18; TEMP 36.1; O2SAT 99
[2021-08-10] MEDS: Prazosin HCL 5 MG CAPSULE PO (20:49)
[2021-08-10] MEDS: Prazosin HCL 1 MG CAPSULE 2 MG PO (20:49)
[2021-08-10] MEDS: Enoxaparin Sodium 40 MG/0.4 ML SYRINGE SUBCUT (20:50)
[2021-08-10 23:30] VITALS: BP 102/53; PULSE 85; RESP 18; TEMP 36.3; O2SAT 96
[2021-08-11] MEDS: Piperacillin Sodium/Tazobactam 3.375 GM in 0.9 % Sodium Chloride 50 ML IV ×4 (01:44→21:55)
[2021-08-11 03:32] VITALS: BP 110/52; PULSE 68; RESP 16; TEMP 36.3; O2SAT 98
[2021-08-11 07:48] VITALS: BP 100/65; PULSE 75; RESP 20; TEMP 36.9; O2SAT 95
[2021-08-11 08:59] LABS: Estimated Glomerular Filt Rate > 60
[2021-08-11 09:08] LABS: Vancomycin Trough 9.4 mcg/mL (10.0-20.0)
[2021-08-11] MEDS: Docusate Sodium 100 MG CAPSULE PO ×2 (09:32→20:13)
[2021-08-11] MEDS: Gabapentin 300 MG CAPSULE 600 MG PO ×3 (09:32→20:13)
[2021-08-11] MEDS: lamoTRIgine 100 MG TABLET 200 MG PO (09:32)
[2021-08-11] MEDS: Spironolactone 25 MG TABLET 50 MG PO ×2 (09:33→20:14)
[2021-08-11] MEDS: estradioL 0.5 MG TABLET 2 MG PO ×3 (09:34→20:13)
[2021-08-11] MEDS: Dextroamphetamine/Amphetamine XR 10 MG CAP.ER.24H PO (09:34)
[2021-08-11] MEDS: Buprenorphine/Naloxone 8/2 mg FILM 2 FILM SUBLINGUAL (09:35)
[2021-08-11] MEDS: 0.9 % Sodium Chloride Flush 3 ML SYRINGE IVFLUSH ×2 (09:35→15:55)
--- NOTE | 2021-08-11 09:40 | HE.PHANOTE ---
vancomycin addendum: new level after 2 doses of 1750 mg increased to 9.4. Insight is predicting auc of 454, keep current regimen, will check a new level miriam
[2021-08-11 11:20] VITALS: BP 133/74; PULSE 75; RESP 18; TEMP 36.2; O2SAT 96
--- NOTE | 2021-08-11 11:55 | P.PNIM_ITS ---
Subjective Subjective Date of Service: 08/11/21 Interval History: no acute issues overnight; states feels somewhat improved Review of Systems denies chest pain Denies shortness of breath Denies nausea vomiting diarrhea Denies fever chills Physical Exam Vital Signs: Vital Signs: Last Vital Signs Temp 97.2 F 08/11/21 11:20 Pulse 75 08/11/21 11:20 Resp 18 08/11/21 11:20 BP 133/74 08/11/21 11:20 Pulse Ox 96 08/11/21 11:20 BMI result Body Mass Index 46.5 Const: Other: no acute distress Resp: Other: clear to auscultation bilaterally no rales rhonchi or wheezes Cardio: Other: no S4; positive S1-S2; no S3 murmurs rubs or gallops GI: Other: soft nontender nondistended normoactive bowel sounds Extrem: Other: right lower extremity erythema improved from yesterday; no warmth Objective Data Active Medications Acetaminophen (Acetaminophen 325 Mg Tablet) 650 mg PO Q6H PRN PRN Reason: Pain, Mild (Pain Scale 1-3) Last Admin: 08/08/21 15:59 Dose: 650 mg Documented by: EMILIANO Albuterol Sulfate (Albuterol Sulfate 90 Mcg 8 Gm Inhaler) 1 puff INHALE Q6H PRN PRN Reason: Wheezing Amphetamine/Dextroamphetamine (Dextroamphetamine/Amphetamine Xr 10 Mg Cap.Er.24h) 10 mg PO DAILY [facility] Last Admin: 08/11/21 09:34 Dose: 10 mg Documented by: TISH Buprenorphine/Naloxone (Buprenorphine/Naloxone 8/2 Mg Film) 2 film SUBLINGUAL DAILY [facility] Last Admin: 08/11/21 09:35 Dose: 2 film Documented by: TISH Clonidine HCl (Clonidine Hcl 0.1 Mg Tablet) 0.1 mg PO BEDTIME PRN; Protocol PRN Reason: Anxiety Clonidine HCl (Clonidine Hcl 0.1 Mg Tablet) 0.1 mg PO DAILY [facility]; Protocol Last Admin: 08/11/21 09:37 Dose: Not Given Documented by: TISH Non-Admin Reason: Patient Refused Docusate Sodium (Docusate Sodium 100 Mg Capsule) 100 mg PO BID [facility] Last Admin: 08/11/21 09:32 Dose: 100 mg Documented by: TISH Enoxaparin Sodium (Enoxaparin Sodium 40 Mg/0.4 Ml Syringe) 40 mg SUBCUT Q24H [facility] Last Admin: 08/10/21 20:50 Dose: 40 mg Documented by: DALLIN Estradiol (Estradiol 0.5 Mg Tablet) 2 mg PO TID [facility] Last Admin: 08/11/21 09:34 Dose: 2 mg Documented by: TISH Famotidine (Famotidine 20 Mg Tablet) 20 mg PO BID PRN PRN Reason: GERD Gabapentin (Gabapentin 300 Mg Capsule) 600 mg PO TID [facility] Last Admin: 08/11/21 09:32 Dose: 600 mg Documented by: TISH Hydroxyzine HCl (Hydroxyzine Hcl 50 Mg Tablet) 100 mg PO Q6H PRN PRN Reason: Anxiety Piperacillin Sod/Tazobactam (Sod 3.375 gm/ Sodium Chloride) 50 mls @ 100 mls/hr IV Q6H [facility] Last Infusion: 08/11/21 07:22 Dose: 0 mls/hr Documented by: TISH Vancomycin HCl 1,000 mg/Vancomycin HCl 750 mg/ Sodium Chloride 535 mls @ 267.5 mls/hr IV Q12H [facility] Last Infusion: 08/11/21 02:00 Dose: 0 mls/hr Documented by: DALLIN Lamotrigine (Lamotrigine 100 Mg Tablet) 200 mg PO DAILY [facility] Last Admin: 08/11/21 09:32 Dose: 200 mg Documented by: TISH Lorazepam (Lorazepam 1 Mg Tablet) 1 mg PO BID PRN PRN Reason: Anxiety Last Admin: 08/10/21 20:50 Dose: 1 mg Documented by: DALLIN Naloxone HCl (Naloxone Hcl Nasal 4 Mg [place]) 4 mg NOSTRILALT Q2M PRN PRN Reason: opioid overdose Ondansetron HCl (Ondansetron Odt 4 Mg Tab.Rapdis) 4 mg TRANSLINGU Q8H PRN PRN Reason: Nausea Pharmacy Consult (Consult Rx Perform Med Rec) 1 each MISCELLANE ONCE PRN PRN Reason: Consult order Pharmacy Consult (Consult Rx Vancomycin Dosing) 1 each MISCELLANE DAILY PRN PRN Reason: Consult order Polyethylene Glycol (Polyethylene Glycol 3350 17 Gm Powd.Pack) 17 gm PO DAILY PRN PRN Reason: constipation Prazosin HCl (Prazosin Hcl 1 Mg Capsule) 2 mg PO BEDTIME [facility]; Protocol Last Admin: 08/10/21 20:49 Dose: 2 mg Documented by: DALLIN Prazosin HCl (Prazosin Hcl 5 Mg Capsule) 5 mg PO BEDTIME [facility]; Protocol Last Admin: 08/10/21 20:49 Dose: 5 mg Documented by: DALLIN Sodium Chloride (0.9 % Sodium Chloride Flush 3 Ml Syringe) 3 ml IVFLUSH QSHIFT [facility] Last Admin: 08/11/21 09:35 Dose: 3 ml Documented by: TISH Spironolactone (Spironolactone 25 Mg Tablet) 50 mg PO BID [facility]; Protocol Last Admin: 08/11/21 09:33 Dose: 50 mg Documented by: TISH Labs CBC & Chem 7: 08/08/21 05:20 08/11/21 08:41 Labs: Laboratory Results - last 24 hr 08/11/21 08/11/21 08:41 08:41 Estim Creat Clear Calc 285.0 Estimated GFR > 60 Vancomycin Trough 9.4 L Assessment and Plan (1) Sepsis: Status: Acute (2) Cellulitis: Status: Acute Assessment and Plan: 30-year-old transgender female presents with cellulitis and sepsis ( not severe). Slowly responding to therapies 1. Cellulitis RLE (sepsis resolved) - continue Vancomycin/Zosyn - switch to Augmentin and doxycycline as per ID when improved 2. Opiate use disorder - continue Suboxone as ordered 3. PTSD - continue all outpatient therapies Lovenox Full Code (3) PTSD (post-traumatic stress disorder): Status: Acute (4) Opioid use disorder, severe, dependence: Status: Acute Plan 30-year-old? transgender female with ? Sepsis/cellulitis. ? Sepsis/cellulitis ?ESR elevated -repeat pending, CRP elevated but improving, leukocytosis nasal mrsa sceen possitive ?normal lactic acid ?blood cultures pendin gentle iv hydration antibiotics changed to vanco/add zosyn vanco trough 5.7 ?id evaluation noteed- continue antibiotics above, may need to switch to po antibiotics once imporves. PTSD/ADHD/ borderline personality/psychoactive substance induced mood use dis order: ?continue home medications. history of opioid use disorder:? On? sublocade. ?addiction consult is placed. Morbid obesity: encouraged to cut down calories and weight loss. ?DVT prophylaxis:s/c lovenox. inpatient need: sepsis/cellulitis- need iv antibiotics Quality Stroke Does the patient have a stroke diagnosis?: No VTE Prior VTE?: No VTE Risk Level:: Medical - moderate - high VTE Device Contraindication: N/A - Device Ordered VTE Drug Contraindication: N/A - Med Ordered
[2021-08-11] MEDS: LORazepam 1 MG TABLET PO ×2 (12:11→20:18)
[2021-08-11] MEDS: vancomycin HCL 1,000 MG, vancomycin HCL 750 MG in 0.9 % Sodium Chloride 500 ML 267.5 MG IV ×2 (12:33→22:56)
[2021-08-11 15:27] VITALS: BP 124/76; PULSE 80; RESP 18; TEMP 34.9; O2SAT 97
[2021-08-11 19:32] VITALS: BP 128/64; PULSE 78; RESP 18; TEMP 35.4; O2SAT 96
[2021-08-11] MEDS: Enoxaparin Sodium 40 MG/0.4 ML SYRINGE SUBCUT (20:12)
[2021-08-11] MEDS: Prazosin HCL 5 MG CAPSULE PO (20:13)
[2021-08-11] MEDS: Prazosin HCL 1 MG CAPSULE 2 MG PO (20:14)
[2021-08-11 23:48] VITALS: BP 118/57; PULSE 74; RESP 17; TEMP 36.3; O2SAT 97
[2021-08-12] VITALS (8 sets, daily range): BP systolic 114–165; BP diastolic 49–96; PULSE 65–88; RESP 17–20; TEMP 36.2–37.3; O2SAT 94–99
[2021-08-12] MEDS: Piperacillin Sodium/Tazobactam 3.375 GM in 0.9 % Sodium Chloride 50 ML IV (04:00)
[2021-08-12 06:31] LABS: MANUAL DIFF FLAG NO
[2021-08-12 06:44] LABS: Basophils Percent Auto 0.3 % (0-2); Eosinophils Absolute Auto 0.5 X10*3/uL (0.0-0.4); Eosinophils Percent Auto 4.5 % (0-4); Hematocrit 33.3 % (42.0-52.0); Imm Gran Abs Auto 0.15 X10*3/uL (0.00-0.03); Imm Gran Pct Auto 1.4 % (0.0-0.4); Lymphocytes Percent Auto 28.3 % (20-40); Mean Corpuscular Hemoglobin 28.6 pg (27.0-33.0); Mean Corpuscular Volume 86.7 fL (80.0-98.0); Mean Platelet Volume 9.9 fL (9.4-12.4); Monocytes Absolute Auto 0.8 X10*3/uL (0.1-1.2); Monocytes Percent Auto 7.6 % (2-11); Neutrophils Absolute Auto 6.1 x10*3/uL (2.0-8.3); Neutrophils Percent Auto 57.9 % (45-73); Platelet Count 377 X10*3/uL (160-400); Red Blood Count 3.84 X10*6/uL (4.60-5.80); Red Cell Distribution Width 14.1 % (11.0-16.0); White Blood Count 10.6 X10*3/uL (4.8-10.8)
[2021-08-12 07:11] LABS: Alanine Aminotransferase 24 U/L (0-40); Albumin Level 2.8 g/dL (3.5-5.0); Alkaline Phosphatase 82 U/L (39-117); Anion Gap 11 (12-20); Aspartate Amino Transferase 13 U/L (5-37); Blood Urea Nitrogen 7 mg/dL (9-16); Calcium 8.2 mg/dL (8.4-10.2); Carbon Dioxide 29 mmol/L (22-29); Chloride 104 mmol/L (96-108); Creatinine Clr Calc Pharmacy 244.2; Estimated Glomerular Filt Rate > 60; Glucose Fasting 114 mg/dL (60-99); Potassium 3.6 mmol/L (3.3-5.1); Sodium 140 mmol/L (135-145); Total Protein 5.2 g/dL (6.5-8.0)
[2021-08-12 07:24] LABS: Bilirubin Total < 0.2 mg/dL (0.0-1.0)
[2021-08-12] MEDS: Docusate Sodium 100 MG CAPSULE PO ×2 (09:44→20:47)
[2021-08-12] MEDS: lamoTRIgine 100 MG TABLET 200 MG PO (09:44)
[2021-08-12] MEDS: estradioL 0.5 MG TABLET 2 MG PO ×3 (09:44→20:47)
[2021-08-12] MEDS: Dextroamphetamine/Amphetamine XR 10 MG CAP.ER.24H PO (09:44)
[2021-08-12] MEDS: Gabapentin 300 MG CAPSULE 600 MG PO ×3 (09:44→20:46)
[2021-08-12] MEDS: Buprenorphine/Naloxone 8/2 mg FILM 2 FILM SUBLINGUAL (09:45)
[2021-08-12] MEDS: Spironolactone 25 MG TABLET 50 MG PO ×2 (09:45→20:47)
--- NOTE | 2021-08-12 09:46 | PC.NURSE ---
IV infiltrated and patient is refusing new access. MD Villalobos aware
--- NOTE | 2021-08-12 13:36 | P.PNIM_ITS ---
Subjective Subjective Date of Service: 08/12/21 Interval History: no acute issues overnight; remains afebrile Review of Systems denies chest pain Denies shortness of breath Denies nausea vomiting diarrhea Denies fever chills Physical Exam Vital Signs: Vital Signs: Last Vital Signs Temp 98.3 F 08/12/21 12:00 Pulse 78 08/12/21 12:00 Resp 20 08/12/21 12:00 BP 148/71 H 08/12/21 12:00 Pulse Ox 96 08/12/21 12:00 O2 Del Method 08/12/21 12:00 BMI result Body Mass Index 46.5 Const: Other: no acute distress Resp: Other: clear to auscultation bilaterally no rales rhonchi or wheezes Cardio: Other: no S4; positive S1-S2; no S3 murmurs rubs or gallops GI: Other: soft nontender nondistended normoactive bowel sounds Extrem: Other: right lower extremity erythema improved from yesterday; no warmth Objective Data Active Medications Acetaminophen (Acetaminophen 325 Mg Tablet) 650 mg PO Q6H PRN PRN Reason: Pain, Mild (Pain Scale 1-3) Last Admin: 08/08/21 15:59 Dose: 650 mg Documented By: EMILIANO Albuterol Sulfate (Albuterol Sulfate 90 Mcg 8 Gm Inhaler) 1 puff INHALE Q6H PRN PRN Reason: Wheezing Amoxicillin/Clavulanate Potassium (Amoxicillin/Potassium Clav 875 Mg Tablet) 875 mg PO Q12H [facility] Amphetamine/Dextroamphetamine (Dextroamphetamine/Amphetamine Xr 10 Mg Cap.Er.24h) 10 mg PO DAILY [facility] Last Admin: 08/12/21 09:44 Dose: 10 mg Documented By: DEVIN Buprenorphine/Naloxone (Buprenorphine/Naloxone 8/2 Mg Film) 2 film SUBLINGUAL DAILY [facility] Last Admin: 08/12/21 09:45 Dose: 2 film Documented By: DEVIN Clonidine HCl (Clonidine Hcl 0.1 Mg Tablet) 0.1 mg PO BEDTIME PRN; Protocol PRN Reason: Anxiety Clonidine HCl (Clonidine Hcl 0.1 Mg Tablet) 0.1 mg PO DAILY [facility]; Protocol Last Admin: 08/12/21 09:48 Dose: Not Given Documented By: DEVIN Non-Admin Reason: Patient Refused Docusate Sodium (Docusate Sodium 100 Mg Capsule) 100 mg PO BID [facility] Last Admin: 08/12/21 09:44 Dose: 100 mg Documented By: DEVIN Doxycycline Hyclate (Doxycycline Hyclate 100 Mg Tablet) 100 mg PO Q12H [facility] Enoxaparin Sodium (Enoxaparin Sodium 40 Mg/0.4 Ml Syringe) 40 mg SUBCUT Q24H [facility] Last Admin: 08/11/21 20:12 Dose: 40 mg Documented By: TERESA Estradiol (Estradiol 0.5 Mg Tablet) 2 mg PO TID [facility] Last Admin: 08/12/21 09:44 Dose: 2 mg Documented By: DEVIN Famotidine (Famotidine 20 Mg Tablet) 20 mg PO BID PRN PRN Reason: GERD Gabapentin (Gabapentin 300 Mg Capsule) 600 mg PO TID [facility] Last Admin: 08/12/21 09:44 Dose: 600 mg Documented By: DEVIN Hydroxyzine HCl (Hydroxyzine Hcl 50 Mg Tablet) 100 mg PO Q6H PRN PRN Reason: Anxiety Lamotrigine (Lamotrigine 100 Mg Tablet) 200 mg PO DAILY [facility] Last Admin: 08/12/21 09:44 Dose: 200 mg Documented By: DEVIN Lorazepam (Lorazepam 1 Mg Tablet) 1 mg PO BID PRN PRN Reason: Anxiety Last Admin: 08/11/21 20:18 Dose: 1 mg Documented By: TERESA Naloxone HCl (Naloxone Hcl Nasal 4 Mg [place]) 4 mg NOSTRILALT Q2M PRN PRN Reason: opioid overdose Ondansetron HCl (Ondansetron Odt 4 Mg Tab.Rapdis) 4 mg TRANSLINGU Q8H PRN PRN Reason: Nausea Pharmacy Consult (Consult Rx Perform Med Rec) 1 each MISCELLANE ONCE PRN PRN Reason: Consult order Pharmacy Consult (Consult Rx Vancomycin Dosing) 1 each MISCELLANE DAILY PRN PRN Reason: Consult order Polyethylene Glycol (Polyethylene Glycol 3350 17 Gm Powd.Pack) 17 gm PO DAILY PRN PRN Reason: constipation Prazosin HCl (Prazosin Hcl 1 Mg Capsule) 2 mg PO BEDTIME [facility]; Protocol Last Admin: 08/11/21 20:14 Dose: 2 mg Documented By: TERESA Prazosin HCl (Prazosin Hcl 5 Mg Capsule) 5 mg PO BEDTIME [facility]; Protocol Last Admin: 08/11/21 20:13 Dose: 5 mg Documented By: TERESA Sodium Chloride (0.9 % Sodium Chloride Flush 3 Ml Syringe) 3 ml IVFLUSH QSHIFT [facility] Last Admin: 08/12/21 09:45 Dose: Not Given Documented By: DEVIN Non-Admin Reason: No Access Spironolactone (Spironolactone 25 Mg Tablet) 50 mg PO BID [facility]; Protocol Last Admin: 08/12/21 09:45 Dose: 50 mg Documented By: DEVIN Labs CBC & Chem 7: 08/12/21 04:35 08/12/21 04:35 Labs: Laboratory Results - last 24 hr 08/12/21 08/12/21 04:35 04:35 MCV 86.7 MCH 28.6 MCHC 33.0 RDW 14.1 Plt Count 377 D MPV 9.9 Immature Gran % (Auto) 1.4 H Neut % (Auto) 57.9 Lymph % (Auto) 28.3 [place] % (Auto) 7.6 Eos % (Auto) 4.5 H Baso % (Auto) 0.3 Lymph # (Auto) 3.0 [place] # (Auto) 0.8 Eos # (Auto) 0.5 H Baso # (Auto) 0.0 Abs Immat Gran (auto) 0.15 H Absolute Neuts (auto) 6.1 Absolute Nucleated RBC 0.000 Nucleated RBC % (auto) 0.0 Anion Gap 11 L Estim Creat Clear Calc 244.2 Estimated GFR > 60 Fasting Glucose 114 H Calcium 8.2 L Total Bilirubin < 0.2 AST 13 D ALT 24 Alkaline Phosphatase 82 Total Protein 5.2 L D Albumin 2.8 L D Assessment and Plan (1) Cellulitis: Status: Acute Assessment and Plan: 30-year-old transgender female presents with cellulitis and sepsis ( not severe). Slowly responding to therapies 1. Cellulitis RLE (sepsis resolved) -Augmentin and doxycycline as per ID - follow CBC in a.m. 2. Opiate use disorder - continue Suboxone as ordered 3. PTSD - continue all outpatient therapies Lovenox Full Code (2) Opioid use disorder, severe, dependence: Status: Acute (3) PTSD (post-traumatic stress disorder): Status: Acute Plan 30-year-old? transgender female with ? Sepsis/cellulitis. ? Sepsis/cellulitis ?ESR elevated -repeat pending, CRP elevated but improving, leukocytosis nasal mrsa sceen possitive ?normal lactic acid ?blood cultures pendin gentle iv hydration antibiotics changed to vanco/add zosyn vanco trough 5.7 ?id evaluation noteed- continue antibiotics above, may need to switch to po antibiotics once imporves. PTSD/ADHD/ borderline personality/psychoactive substance induced mood use disorder: ?continue home medications. history of opioid use disorder:? On? sublocade. ?addiction consult is placed. Morbid obesity: encouraged to cut down calories and weight loss. ?DVT prophylaxis:s/c lovenox. inpatient need: sepsis/cellulitis- need iv antibiotics Quality Stroke Does the patient have a stroke diagnosis?: No VTE Prior VTE?: No VTE Risk Level:: Medical - moderate - high VTE Device Contraindication: N/A - Device Ordered VTE Drug Contraindication: N/A - Med Ordered
[2021-08-12] MEDS: Amoxicillin/Potassium Clav 875 MG TABLET PO (13:41)
[2021-08-12] MEDS: LORazepam 1 MG TABLET PO ×2 (13:42→20:46)
[2021-08-12] MEDS: Prazosin HCL 1 MG CAPSULE 2 MG PO (20:46)
[2021-08-12] MEDS: Prazosin HCL 5 MG CAPSULE PO (20:47)
[2021-08-12] MEDS: Enoxaparin Sodium 40 MG/0.4 ML SYRINGE SUBCUT (20:48)
[2021-08-13] MEDS: Amoxicillin/Potassium Clav 875 MG TABLET PO (00:20)
[2021-08-13 04:00] VITALS: BP 118/46; PULSE 70; RESP 17; TEMP 36.3; O2SAT 97
[2021-08-13 06:01] LABS: MANUAL DIFF FLAG NO
[2021-08-13 06:10] LABS: Basophils Percent Auto 0.3 % (0-2); Eosinophils Absolute Auto 0.3 X10*3/uL (0.0-0.4); Eosinophils Percent Auto 3.1 % (0-4); Hematocrit 34.8 % (42.0-52.0); Hemoglobin 11.5 g/dl (14.0-18.0); Imm Gran Abs Auto 0.13 X10*3/uL (0.00-0.03); Imm Gran Pct Auto 1.3 % (0.0-0.4); Mean Corpuscular Hemoglobin 28.3 pg (27.0-33.0); Mean Corpuscular Volume 85.7 fL (80.0-98.0); Mean Platelet Volume 9.1 fL (9.4-12.4); Monocytes Absolute Auto 0.9 X10*3/uL (0.1-1.2); Monocytes Percent Auto 8.8 % (2-11); Neutrophils Absolute Auto 5.6 x10*3/uL (2.0-8.3); Neutrophils Percent Auto 56.5 % (45-73); Platelet Count 386 X10*3/uL (160-400); Red Blood Count 4.06 X10*6/uL (4.60-5.80); Red Cell Distribution Width 13.9 % (11.0-16.0)
[2021-08-13 06:24] LABS: Alanine Aminotransferase 20 U/L (0-40); Alkaline Phosphatase 95 U/L (39-117); Anion Gap 13 (12-20); Aspartate Amino Transferase 13 U/L (5-37); Bilirubin Total 0.2 mg/dL (0.0-1.0); Blood Urea Nitrogen 7 mg/dL (9-16); Calcium 8.6 mg/dL (8.4-10.2); Carbon Dioxide 27 mmol/L (22-29); Chloride 105 mmol/L (96-108); Estimated Glomerular Filt Rate > 60; Glucose Fasting 110 mg/dL (60-99); Potassium 3.9 mmol/L (3.3-5.1); Sodium 141 mmol/L (135-145); Total Protein 5.6 g/dL (6.5-8.0)
[2021-08-13 07:28] VITALS: BP 112/54; PULSE 89; RESP 18; TEMP 36.9; O2SAT 95
[2021-08-13] MEDS: Spironolactone 25 MG TABLET 50 MG PO (07:46)
[2021-08-13] MEDS: Gabapentin 300 MG CAPSULE 600 MG PO (07:46)
[2021-08-13] MEDS: estradioL 0.5 MG TABLET 2 MG PO (07:47)
[2021-08-13] MEDS: Docusate Sodium 100 MG CAPSULE PO (07:47)
[2021-08-13] MEDS: Buprenorphine/Naloxone 8/2 mg FILM 2 FILM SUBLINGUAL (07:47)
[2021-08-13] MEDS: lamoTRIgine 100 MG TABLET 200 MG PO (07:47)
[2021-08-13] MEDS: Dextroamphetamine/Amphetamine XR 10 MG CAP.ER.24H PO (07:47)
[2021-08-13 07:50] VITALS: BP 112/54; PULSE 89; RESP 18; TEMP 36.9; O2SAT 95
--- NOTE | 2021-08-13 10:25 | P.DS_ITS ---
DS: Providers Provider Date of Service: 08/13/21 Date of admission: 08/07/21 17:57 Date of discharge: 08/13/21 Primary care physician: Unknown Physician Consults: 08/07/21 16:50 Addiction Medicine Stat Consulting Provider: Laisha Huff Reason for consultation: On sublocade, will need to be dosed here with suboxone 08/07/21 18:13 Consult to Infectious Diseases Routine Consulting Provider: Sherley Silveira Reason for consultation: sepsis/cellulitis Has provider been notified: No DS: Diagnosis Discharge Diagnosis (1) Cellulitis: Status: Acute (2) Opioid use disorder, severe, dependence: Status: Acute (3) PTSD (post-traumatic stress disorder): Status: Acute DS: Summary Hospital Course Hospital Course: 30-year-old? transgender female ? On estrogen, history of PTSD, ADHD, borderline personality, opioid use- who came to the hospital because of right leg erythema and pain- she says that 3-4 days ago she try to save her leg and afterwards started having erythema, swelling and pain- subsequently decided to come to the hospital for pain swelling of right leg [facility] admitted to general medical floor and started on vancomycin and Zosyn. Over the course of next several days his leg slowly improved and backdrop of negative venous duplex. Day prior to discharge he was started on Augmentin and doxycycline as per Infectious Disease. He will be discharged to complete a 10 day course of same Time Spent with Patient Time attestation: Total time spent providing and/or coordinating discharge services: Discharge coordination time: Greater than 30 minutes Quality: Safe Use of Opioids Does Pt have an Active Cancer Diagnosis on the Problem List?: No Quality: Stroke Does the patient have a stroke diagnosis?: No Physical Exam Vital Signs: Vital Signs: Last Vital Signs Temp 98.5 F 08/13/21 07:50 Pulse 89 08/13/21 07:50 Resp 18 08/13/21 07:50 BP 112/54 L 08/13/21 07:50 Pulse Ox 95 08/13/21 07:50 O2 Del Method 08/13/21 07:50 BMI result Body Mass Index 46.5 Const: Other: no acute distress Resp: Other: clear to auscultation bilaterally no rales rhonchi or wheezes Cardio: Other: no S4; positive S1-S2; no S3 murmurs rubs or gallops GI: Other: soft nontender nondistended normoactive bowel sounds Extrem: Other: right lower extremity erythema improved from yesterday; no warmth DS: Data Data Completed and Pending Completed studies during hospitalization [Text1]: Procedures Drainage of Left Upper Arm Skin, External Approach (04/14/20) Labs on day of discharge: Laboratory Results - last 24 hr 08/13/21 08/13/21 05:21 05:34 WBC 10.0 RBC 4.06 L Hgb 11.5 L Hct 34.8 L MCV 85.7 MCH 28.3 MCHC 33.0 RDW 13.9 Plt Count 386 MPV 9.1 L Immature Gran % (Auto) 1.3 H Neut % (Auto) 56.5 Lymph % (Auto) 30.0 [place] % (Auto) 8.8 Eos % (Auto) 3.1 Baso % (Auto) 0.3 Lymph # (Auto) 3.0 [place] # (Auto) 0.9 Eos # (Auto) 0.3 Baso # (Auto) 0.0 Abs Immat Gran (auto) 0.13 H Absolute Neuts (auto) 5.6 Absolute Nucleated RBC 0.000 Nucleated RBC % (auto) 0.0 Sodium 141 Potassium 3.9 Chloride 105 Carbon Dioxide 27 Anion Gap 13 BUN 7 L Creatinine 0.69 Estim Creat Clear Calc 223.0 Estimated GFR > 60 Fasting Glucose 110 H Calcium 8.6 Total Bilirubin 0.2 AST 13 ALT 20 Alkaline Phosphatase 95 Total Protein 5.6 L Albumin 3.0 L Discharge Plan Discharge Patient Disposition: Home, Self-Care Discharge Diagnosis: RLE cellulitis Referrals: Physician,Unknown J [Primary Care Provider] - 1 Week Discharge Medications: New doxycycline hyclate 100 mg Tablet 100 mg PO Q12H Qty: 20 0RF amoxicillin-pot clavulanate 875-125 mg Tablet 875 mg PO Q12H Qty: 20 0RF Continued hydroxyzine HCl 50 mg Tablet 100 mg PO Q6H PRN (Reason: Anxiety) Qty: 60 0RF gabapentin 300 mg Capsule 600 mg PO TID Qty: 42 4RF famotidine 20 mg Tablet 20 mg PO BID PRN (Reason: GERD) Qty: 60 0RF naloxone [Narcan] 4 mg/actuation spray,non-aerosol 4 mg intranasal Q2M PRN (Reason: opioid overdose) Qty: 2 0RF Rx Instructions: spray 1 dose into ONE nostril; alternate nostrils w each dose until help arrives polyethylene glycol 3350 [Miralax] 17 gram/dose powder 17 g PO DAILY PRN (Reason: constipation) Qty: 119 0RF albuterol sulfate [Ventolin HFA] 90 mcg/actuation HFA aerosol inhaler 1 puff inhalation Q6H PRN (Reason: Wheezing) clonidine HCl 0.1 mg tablet 0.1 mg PO BEDTIME PRN (Reason: Anxiety) Protocol: Hold for SBP< HOLD for SBP < : 90 clonidine HCl 0.1 mg Tablet 0.1 mg PO DAILY lamotrigine 100 mg tablet 200 mg PO DAILY prazosin 5 mg capsule 5 mg PO BEDTIME Rx Instructions: TAKE TOGETHER WITH 2 MG CAPSULE, TOTAL DOSE OF 7 MG prazosin 2 mg Capsule 2 mg PO BEDTIME Rx Instructions: TAKE TOGETHER WITH 5 MG CAPSULE, TOTAL DOSE OF 7 MG Vyvanse 60 mg Capsule 60 mg PO DAILY docusate sodium 100 mg capsule 100 mg PO BID Sublocade 300 mg/1.5 mL Solution, Extended Rel Syringe 300 mg SUBCUT QMONTH ondansetron 4 mg Tablet,Disintegrating 4 mg PO Q8H PRN (Reason: Nausea) spironolactone 50 mg Tablet 50 mg PO BID lorazepam 1 mg tablet 1 mg PO BID PRN (Reason: Anxiety) Rx Instructions: DOSES AT LEAST 4 HOURS APART estradiol 2 mg Tablet 2 mg PO TID Discharge Orders: Discharge Order (Routine); Ordered 08/13/21 Ordered By: Tulio Villalobos Diet: advance to usual diet Activity on Discharge: As tolerated Stand Alone Forms: Patient Portal Discharge page Care Plan Goals: complete course of Augmentin and doxycycline as ordered Health Concerns: elevate leg whenever possible Plan of Treatment: follow-up with PCP 1-2 weeks Assessment: see discharge summary
--- NOTE | 2021-08-13 11:28 | MHC.CM.PN ---
PT MEDICALLY CLEARED FOR D/C HOME BABAR-CARE, PT WILL RETURN TO [facility] AND WILL CALL HER PROGRAM TO ARRANGE TRANSPORT SHE DOES NOT WANT TO WAIT FOR SHUTTLE/TAXI.
== END 2021-08-13 12:23 | disposition home or self-care (01) | DRG 720 ==
LOC: HO.ED 16:06 → HO.EDOVER 18:03 → HO.S3 19:43
PROVIDERS: Physician Assistant; Admitting Provider Internal Medicine; Emergency Provider Student in an Organized Health Care Education/Training Program; PCP Nurse Practitioner Family; Visit Provider Hospitalist
DX: A41.9 Sepsis, unspecified organism (principal); L03.115 Cellulitis of right lower limb; E66.01 Morbid (severe) obesity due to excess calories; F11.20 Opioid dependence, uncomplicated; F41.9 Anxiety disorder, unspecified; F43.10 Post-traumatic stress disorder, unspecified; F90.9 Attention-deficit hyperactivity disorder, unspecified type; K58.9 Irritable bowel syndrome, unspecified; F64.0 Transsexualism; B95.62 Methicillin resistant Staphylococcus aureus infection as the cause of diseases classified elsewhere; F17.210 Nicotine dependence, cigarettes, uncomplicated; Z20.822 Contact with and (suspected) exposure to COVID-19; Z71.3 Dietary counseling and surveillance; Z68.42 Body mass index [BMI] 45.0-49.9, adult; Z71.6 Tobacco abuse counseling; Z79.899 Other long term (current) drug therapy
CPT/HCPCS: 36415; 80048; 80053; 80202; 80307; 81001; 82565; 83605; 84132; 85025; 85027; 85610; 85652; 85730; 86140; 87040; 87086; 87389; 87635; 87640; 87641; 93971; 96361; 96365; 99285; J0690; J1650; J2543; J3370

== ENCOUNTER 2021-08-25 09:50 | Emergency (ER) | payer MEDICAID, SELFPAY ==
[2021-08-25 09:55] VITALS: BP 147/72; PULSE 102; RESP 20; TEMP 36.6; O2SAT 98; BMI 47.3
[2021-08-25 10:05] VITALS: BP 131/75; PULSE 82; RESP 18; TEMP 36.9; O2SAT 97
--- NOTE | 2021-08-25 10:15 | ED_ITS ---
HPI - Skin/Abscess/Foreign Bdy General Chief complaint: Urogenital-Male Stated complaint: CELLUITIS SPREAD TO GENITAL Time Seen by Provider: 08/25/21 10:04 Source: patient and old records reviewed Mode of arrival: ambulatory Limitations: no limitations History of Present Illness HPI narrative: 30 yo patient with hx of anxiety, opiate use disorder, treated for cellulitis and DC on 08/13 sent home with doxycycline and augemtin after RLE cellulitis infection that started after shaving complaint: rash and lesion Onset (ago): day(s) (10+, now penis is sore and rash noted to foreskin past few days) Tetanus up to date: yes Location: genitals and RLE Severity: moderate Quality: burning Pain Consistency: intermittent Relieving factors: none Exacerbating factors: other (hurts when she pees) Context: recent illness, recent antibiotic and other (on estrogen) Treatments prior to arrival: other (finished augmentin and doxy) Related Data Home Medications Medication Instructions Recorded Confirmed albuterol sulfate 90 mcg/actuation 1 puff inhalation Q6H PRN Wheezing 08/07/21 08/07/21 aerosol inhaler (Ventolin HFA) buprenorphine 300 mg/1.5 mL 300 mg subcut QMONTH 08/07/21 08/07/21 solution,exten.rel.subcutaneous syringe (Sublocade) clonidine HCl 0.1 mg tablet 0.1 mg PO BEDTIME PRN Anxiety 08/07/21 08/07/21 clonidine HCl 0.1 mg tablet 0.1 mg PO DAILY 08/07/21 08/07/21 docusate sodium 100 mg capsule 100 mg PO BID 08/07/21 08/07/21 estradiol 2 mg tablet 2 mg PO TID 08/07/21 08/07/21 lamotrigine 100 mg tablet 200 mg PO DAILY 08/07/21 08/07/21 lisdexamfetamine 60 mg capsule 60 mg PO DAILY 08/07/21 08/07/21 (Vyvanse) lorazepam 1 mg tablet 1 mg PO BID PRN Anxiety 08/07/21 08/07/21 ondansetron 4 mg disintegrating 4 mg PO Q8H PRN Nausea 08/07/21 08/07/21 tablet prazosin 2 mg capsule 2 mg PO BEDTIME 08/07/21 08/07/21 prazosin 5 mg capsule 5 mg PO BEDTIME 08/07/21 08/07/21 spironolactone 50 mg tablet 50 mg PO BID 08/07/21 08/07/21 Previous Rx's Medication Instructions Recorded famotidine 20 mg tablet 20 mg PO BID PRN GERD #60 tabs 10/03/20 gabapentin 300 mg capsule 600 mg PO TID #42 caps 10/03/20 hydroxyzine HCl 50 mg tablet 100 mg PO Q6H PRN Anxiety #60 tabs 10/03/20 naloxone 4 mg/actuation nasal 4 mg intranasal Q2M PRN opioid 10/03/20 spray (Narcan) overdose #2 ea polyethylene glycol 3350 17 17 g PO DAILY PRN constipation 10/03/20 gram/dose oral powder (Miralax) #119 grams amoxicillin 875 mg-potassium 875 mg PO Q12H #20 tabs 08/13/21 clavulanate 125 mg tablet doxycycline hyclate 100 mg tablet 100 mg PO Q12H #20 tabs 08/13/21 amoxicillin 875 mg-potassium 1 tab PO BID 5 days #10 tabs 08/25/21 clavulanate 125 mg tablet clotrimazole 1 % topical cream 1 appl topical BID 2 weeks #30 08/25/21 grams doxycycline hyclate 100 mg tablet 100 mg PO BID 5 days #10 tabs 08/25/21 mupirocin 2 % topical ointment 1 appl topical BID 7 days #15 grams 08/25/21 Allergies Allergy/AdvReac Type Severity Reaction Status Date / Time aripiprazole [From [facility]] Allergy Unknown UNKNOWN Verified 10/18/20 16:33 Review of Systems Review of Systems: Constitutional : No Fever, No Chills ENT/Mouth : No sore throat, No Rhinorrhea Eyes: No Eye Pain, No Swelling, No Redness Cardiovascular : No Chest Pain, No SOB Respiratory : No Cough, No Sputum Gastrointestinal : No Nausea, No Vomiting, No Diarrhea, No abdominal Pain Genitourinary : No Dysuria, No Hematuria Musculoskeletal : No joint pain, No Myalgias, No Joint Swelling Skin : No Skin Lesions, positive skin rash Neuro : No Weakness, No Numbness, No Headache Psych : No Anxiety, No Depression All other systems reviewed and are negative PMFSH Past Medical History Attestation statement: The following information was validated with the patient. Medical History Abscess of left upper extremity ADHD Anxiety Asthma Cocaine substance abuse Depression HTN (hypertension) IBS (irritable bowel syndrome) Opiate misuse Opioid use disorder, severe, dependence Perianal cyst PTSD (post-traumatic stress disorder) PTSD (post-traumatic stress disorder) Tibial torsion, bilateral Social History Social History Household Members: Other Housing: Other Housing Other:: [employer] [facility] Do you presently have visiting nurse or other home services: No Alcohol intake: never Patient Tobacco Use Status: Current everyday Tobacco user Tobacco use type: Cigarette Cigarette Packs Per Day: 1 Cigarettes Per Day: 20.0 e-Cigarette/Vaping Use: Never Used Second Hand Smoke Exposure: Yes Substance Use Type: Crack/Cocaine, Heroin and Methamphetamine Advance Directives: No Advance Directives Information Provided: No service: No Current occupational status: unemployed Sexual orientation: Did not discuss Physical Exam Vital Signs: Vital Signs: Last Vital Signs Temp 98.5 F 08/25/21 10:05 Pulse 82 08/25/21 10:05 Resp 18 08/25/21 10:05 BP 131/75 08/25/21 10:05 Pulse Ox 97 08/25/21 10:05 O2 Del Method 08/25/21 10:05 BMI result Body Mass Index 47.3 Appearance: Alert. Oriented X3. No acute distress. Eyes: Pupils equal, round and reactive to light. ENT: Pharynx normal. Neck: Normal inspection. Neck supple. CVS: Normal heart rate and rhythm. Pulses normal. Respiratory: No respiratory distress. Breath sounds normal. Abdomen: Soft and nontender. : penis no erythema but foreskin has slight cracking, scant white discharge noted, mild erythema yeast like appearance Skin: Skin warm and dry. Normal skin color. Normal skin turgor. Extremities: R light ext mild trace pitting edema mild erythema not circumferential abrasion R lateral aspect of henry erythema only covers R anterior henry minimal warmth Neuro: Oriented X 3. No motor deficit. No sensory deficit. MDM - Skin/Abscess/Foreign Bdy MDM Narrative Medical decision making narrative: 30 yo female with hx of cellulitis on RLE it is improving but still slightly red will add on additional 5 days of augmentin of doxycycline. Patient also has mild balanitis seems like yeast infection possible yeast infection from estrogen and antibiotics will start on clotrimazole. No extension of redness to genital area. Overall leg is improving and no systemic symptoms. Stable for Rx at home has good PCP follow up. Discharge Plan Discharge Clinical Impression: Balanitis Cellulitis Qualifiers: Site of cellulitis: extremity Site of cellulitis of extremity: lower extremity Laterality: right Qualified Code(s): L03.115 - Cellulitis of right lower limb Patient Disposition: Home, Self-Care Instructions: Cellulitis (ED), Balanitis (ED) Additional Instructions: return to ED for any worsening symptoms or concerns please do not use the bacitracin only mupirocin on leg area clotrimazole to genital area Prescriptions: New amoxicillin-pot clavulanate 875-125 mg tablet 1 tab PO BID 5 Days Qty: 10 0RF doxycycline hyclate 100 mg tablet 100 mg PO BID 5 Days Qty: 10 0RF mupirocin 2 % ointment 1 appl topical BID 7 Days Qty: 15 0RF clotrimazole 1 % cream 1 appl topical BID 14 Days Qty: 30 0RF No Action hydroxyzine HCl 50 mg Tablet 100 mg PO Q6H PRN (Reason: Anxiety) Qty: 60 0RF gabapentin 300 mg Capsule 600 mg PO TID Qty: 42 4RF famotidine 20 mg Tablet 20 mg PO BID PRN (Reason: GERD) Qty: 60 0RF naloxone [Narcan] 4 mg/actuation spray,non-aerosol 4 mg intranasal Q2M PRN (Reason: opioid overdose) Qty: 2 0RF Rx Instructions: spray 1 dose into ONE nostril; alternate nostrils w each dose until help arrives polyethylene glycol 3350 [Miralax] 17 gram/dose powder 17 g PO DAILY PRN (Reason: constipation) Qty: 119 0RF albuterol sulfate [Ventolin HFA] 90 mcg/actuation HFA aerosol inhaler 1 puff inhalation Q6H PRN (Reason: Wheezing) clonidine HCl 0.1 mg tablet 0.1 mg PO BEDTIME PRN (Reason: Anxiety) Protocol: Hold for SBP< HOLD for SBP < : 90 clonidine HCl 0.1 mg Tablet 0.1 mg PO DAILY lamotrigine 100 mg tablet 200 mg PO DAILY prazosin 5 mg capsule 5 mg PO BEDTIME Rx Instructions: TAKE TOGETHER WITH 2 MG CAPSULE, TOTAL DOSE OF 7 MG prazosin 2 mg Capsule 2 mg PO BEDTIME Rx Instructions: TAKE TOGETHER WITH 5 MG CAPSULE, TOTAL DOSE OF 7 MG Vyvanse 60 mg Capsule 60 mg PO DAILY docusate sodium 100 mg capsule 100 mg PO BID Sublocade 300 mg/1.5 mL Solution, Extended Rel Syringe 300 mg SUBCUT QMONTH ondansetron 4 mg Tablet,Disintegrating 4 mg PO Q8H PRN (Reason: Nausea) spironolactone 50 mg Tablet 50 mg PO BID lorazepam 1 mg tablet 1 mg PO BID PRN (Reason: Anxiety) Rx Instructions: DOSES AT LEAST 4 HOURS APART estradiol 2 mg Tablet 2 mg PO TID doxycycline hyclate 100 mg Tablet 100 mg PO Q12H Qty: 20 0RF amoxicillin-pot clavulanate 875-125 mg Tablet 875 mg PO Q12H Qty: 20 0RF Referrals: Physician,Unknown J [Primary Care Provider] - (PCP doctor in 3 days if no better)
== END 2021-08-25 10:48 | disposition home or self-care (01) ==
PROVIDERS: Emergency Provider Emergency Medicine
DX: N48.1 Balanitis (principal); L03.115 Cellulitis of right lower limb; R30.0 Dysuria; F17.210 Nicotine dependence, cigarettes, uncomplicated; F11.10 Opioid abuse, uncomplicated; F14.10 Cocaine abuse, uncomplicated; Z79.899 Other long term (current) drug therapy; Z71.6 Tobacco abuse counseling
CPT/HCPCS: 99283

== ENCOUNTER 2021-12-31 17:22 | Inpatient (IN) | payer OTHER, MEDICAID, SELFPAY ==
[2021-12-31 17:26] VITALS: BP 163/108; PULSE 105; RESP 18; TEMP 36.4; O2SAT 96; BMI 44.3
--- NOTE | 2021-12-31 17:28 | ECG_ITS ---
Test Reason : substamce use Blood Pressure : / mmHG Vent. Rate : 084 BPM Atrial Rate : 084 BPM P-R Int : 154 ms QRS Dur : 094 ms QT Int : 392 ms P-R-T Axes : 052 002 035 degrees QTc Int : 463 ms Normal sinus rhythm with sinus arrhythmia Minimal voltage criteria for LVH, may be normal variant ( R in aVL ) Nonspecific ST abnormality Abnormal ECG When compared with ECG of 17-SEP-2020 03:17, No significant change was found Referred By: Generic ED Physician Electronically Signed By:SUSAN DE LEON MD
--- NOTE | 2021-12-31 17:31 | PC.NURSE ---
per pt plan to run into traffic and get hit by car
[2021-12-31 17:57] LABS: COVID-19 Test Negative (Negative); IDNOW Serial# 16C4AD1C
--- NOTE | 2021-12-31 18:02 | ED.GENADULT ---
HPI - General Adult General Chief complaint: General Medical Stated complaint: possible infection in arm Time Seen by Provider: 12/31/21 17:44 Source: patient Mode of arrival: ambulatory Limitations: no limitations History of Present Illness HPI narrative: 31-year-old male transitioning to female presents for multiple complaints. States to be suicidal, has significant life stressors, is in debt for a lot of money, has been noncompliant with his medications, has been injecting heroin and has few suspected abscesses on her arms. Patient tried multiple times to inject heroin today, but was unable find a vessel so she had to snort it. She also reports not taking her spironolactone, and has had significant edema because of it. She does not report fevers, chills, chest pain or pressure, abdominal pain, palpitations, nausea, vomiting, diarrhea, weakness or dizziness. Onset (ago): week(s) Location: left, right and upper extremity Radiation: non-radiation Severity: mild Severity scale (1-10): 4 Quality: aching Pain Consistency: constant Relieving factors: none Associated symptoms: other (Suicidal ideation) Related Data Home Medications Medication Instructions Recorded Confirmed albuterol sulfate 90 mcg/actuation 1 puff inhalation Q6H PRN Wheezing 08/07/21 12/31/21 aerosol inhaler (Ventolin HFA) estradiol 2 mg tablet 2 mg PO TID 08/07/21 12/31/21 lamotrigine 100 mg tablet 200 mg PO DAILY 08/07/21 12/31/21 clonidine HCl 0.1 mg tablet 1 tab PO BID 12/31/21 12/31/21 gabapentin 300 mg capsule 1 cap PO TID 12/31/21 12/31/21 lamotrigine 200 mg tablet 1 tab PO DAILY 12/31/21 12/31/21 lisdexamfetamine 60 mg capsule 1 cap PO QAM 12/31/21 12/31/21 (Vyvanse) prazosin 2 mg capsule 1 cap PO BEDTIME 12/31/21 12/31/21 prazosin 5 mg capsule 1 cap PO BEDTIME 12/31/21 12/31/21 Allergies Allergy/AdvReac Type Severity Reaction Status Date / Time aripiprazole [From [facility]] Allergy Unknown UNKNOWN Verified 10/18/20 16:33 Review of Systems Review of Systems: Constitutional: No Fever, No Chills ENT/Mouth: No Ear Pain, No Nasal Congestion, No sore throat Eyes: No Eye Pain, No Swelling, No Redness Cardiovascular: No Chest Pain, No SOB Respiratory: No Cough, No Sputum, No Dyspnea Gastrointestinal: No Nausea, No Vomiting, No Diarrhea, No Hematochezia, No Melena Genitourinary: No Dysuria, No Urinary Frequency, No Hematuria Musculoskeletal: No Myalgias Skin: Multiple hard red areas to both arms, No Skin Lesions, No rash Neuro: No Weakness, No Numbness, No Paresthesias, No Dizziness, No Headache Psych: positive Anxiety, positive Depression, positive SI Heme/Lymph: No Lymphadenopathy Endocrine: No Polyuria, No Polydipsia Yes all other systems are reviewed and are negative PMFSH Past Medical History Attestation statement: The following information was validated with the patient. Source: old records reviewed Medical History Abscess of left upper extremity ADHD Anxiety Asthma Borderline personality disorder Cocaine substance abuse Depression HTN (hypertension) IBS (irritable bowel syndrome) Opiate misuse Opioid use disorder, severe, dependence Perianal cyst PTSD (post-traumatic stress disorder) PTSD (post-traumatic stress disorder) Tibial torsion, bilateral Social History Social History Household Members: Other Housing: Other Housing Other:: [place] [facility] Do you presently have visiting nurse or other home services: No Alcohol intake: never Patient Tobacco Use Status: Current everyday Tobacco user Tobacco use type: Cigarette Cigarette Packs Per Day: 1 Cigarettes Per Day: 20.0 e-Cigarette/Vaping Use: Never Used Second Hand Smoke Exposure: Yes Substance Use Type: Crack/Cocaine, Heroin and Methamphetamine Advance Directives: No Advance Directives Information Provided: No service: No Current occupational status: unemployed Sexual orientation: Did not discuss Physical Exam ED Vital Signs: Vital Signs - 24 hr 12/31/21 17:26 Temperature 97.6 F Pulse Rate 105 H Respiratory Rate 18 Blood Pressure 163/108 H Pulse Oximetry 96 Oxygen Delivery Method Room Air BMI result Body Mass Index 44.3 Appearance: Alert. Oriented X3. Moderate emotional distress. Eyes: Pupils equal, round and reactive to light. Sclera nonicteric ENT: Pharynx normal. Moist mucous membranes Neck: Normal inspection. Neck supple. No vertebral tenderness or step-offs. No nuchal rigidity. CVS: Normal heart rate and rhythm. Pulses normal. Respiratory: No respiratory distress. Breath sounds normal. Abdomen: Soft and nontender. Skin: Multiple indurated areas measuring from 1 cm to 0.5 cm in diameter to the right AC, and left AC. Extremities: +2 pitting lower extremity edema. Gait well-balanced well coordinated. Neuro: No motor deficit. No sensory deficit. Cranial nerves 2-12 intact. Course Course Course Narrative: 31-year-old male transitioning to female currently on hormones with past medical history borderline personality disorder, substance abuse disorder presents for suicidal ideation, and multiple hard area suspected to be abscesses to bilateral ACs. Patient does not report breaking off any needle into her arms, does not report fevers or chills. Vital signs are stable, heart rate is elevated at 105, afebrile, alert oriented x4. Plan of care for lab is fingerstick as patient does not have any accessible vessels. Will order BHN consult. For edema, will give 40 mg of p.o. Lasix. Multiple hard areas to bilateral ACs, no areas of fluctuance, no erythema or warmth. Will give p.o. doxycycline for cellulitis. 18:34 tox screen positive for fentanyl, heroin, amphetamines, cocaine, and marijuana. EKG normal sinus without ST elevation or depression. 00:50 potassium 3.1 will replete 40 mEq p.o.. BHN pending. Medically cleared. Physician observation at this time. Medical Decision Making Differential Diagnosis Differential Diagnosis: Abscess, cellulitis, psychosis, suicidal ideation Medical Records Medical records reviewed: Yes I reviewed the patient's medical records. Lab Data Lab results reviewed: Yes I reviewed the patient's lab results. Result diagrams: 12/31/21 19:50 12/31/21 19:50 Labs: Lab Results 12/31/21 12/31/21 12/31/21 Range/Units 17:38 18:03 18:03 WBC (4.8-10.8) X10*3/uL RBC (4.60-5.80) X10*6/uL Hgb (14.0-18.0) g/dl Hct (42.0-52.0) % MCV (80.0-98.0) fL MCH (27.0-33.0) pg MCHC (31.0-36.0) g/dl RDW (11.0-16.0) % Plt Count (160-400) X10*3/uL MPV (9.4-12.4) fL Immature Gran % (Auto) (0.0-0.4) % Neut % (Auto) (45-73) % Lymph % (Auto) (20-40) % [place] % (Auto) (2-11) % Eos % (Auto) (0-4) % Baso % (Auto) (0-2) % Lymph # (Auto) (1.2-4.9) X10*3/uL [place] # (Auto) (0.1-1.2) X10*3/uL Eos # (Auto) (0.0-0.4) X10*3/uL Baso # (Auto) (0.0-0.2) X10*3/uL Abs Immat Gran (auto) (0.00-0.03) X10*3/uL Absolute Neuts (auto) (2.0-8.3) x10*3/uL Absolute Nucleated RBC (0.0-0.012) X10*3/uL Nucleated RBC % (auto) (0.0-0.2) /100WBC Sodium (135-145) mmol/L Potassium (3.3-5.1) mmol/L Chloride (96-108) mmol/L Carbon Dioxide (22-29) mmol/L Anion Gap (12-20) BUN (9-16) mg/dL Creatinine (0.5-1.4) mg/dL Estim Creat Clear Calc Estimated GFR Random Glucose (60-115) mg/dL Calcium (8.4-10.2) mg/dL Total Bilirubin (0.0-1.0) mg/dL Direct Bilirubin (0.0-0.5) mg/dL AST (5-37) U/L ALT (0-40) U/L Alkaline Phosphatase (39-117) U/L Total Protein (6.5-8.0) g/dL Albumin (3.5-5.0) g/dL Lipase (8-78) U/L Urine Color Yellow Urine Appearance Clear Urine pH 6.5 (5.0-9.0) Ur Specific [place] 1.010 (1.005-1.025) Urine Protein Negative (Neg-Trace) mg/dL Urine Glucose (UA) Negative (Negative) mg/dL Urine Ketones Trace (Negative) mg/dL Urine Blood Negative (Negative) Urine Nitrite Negative (Negative) Ur Leukocyte Esterase Negative (Negative) Urine Opiates Screen POSITIVE H (Not Detect) Urine Fentanyl Screen POSITIVE H (Not Detect) Ur Barbiturates Screen Not Detected (Not Detect) Ur Phencyclidine Scrn Not Detected (Not Detect) Ur Amphetamines Screen POSITIVE H (Not Detect) U Benzodiazepines Scrn Not Detected (Not Detect) Urine Cocaine Screen POSITIVE H (Not Detect) U Marijuana (THC) Screen POSITIVE H (Not Detect) Ethyl Alcohol mg/dL COVID-19 (LOS) Negative (Negative) COVID-19 Clin Com See Note 12/31/21 12/31/21 12/31/21 Range/Units 19:50 19:50 19:50 WBC 5.5 (4.8-10.8) X10*3/uL RBC 4.71 (4.60-5.80) X10*6/uL Hgb 13.5 L (14.0-18.0) g/dl Hct 39.9 L (42.0-52.0) % MCV 84.7 (80.0-98.0) fL MCH 28.7 (27.0-33.0) pg MCHC 33.8 (31.0-36.0) g/dl RDW 13.9 (11.0-16.0) % Plt Count 278 D (160-400) X10*3/uL MPV 10.1 (9.4-12.4) fL Immature Gran % (Auto) 0.2 (0.0-0.4) % Neut % (Auto) 51.7 (45-73) % Lymph % (Auto) 35.8 (20-40) % [place] % (Auto) 8.5 (2-11) % Eos % (Auto) 3.3 (0-4) % Baso % (Auto) 0.5 (0-2) % Lymph # (Auto) 2.0 (1.2-4.9) X10*3/uL [place] # (Auto) 0.5 (0.1-1.2) X10*3/uL Eos # (Auto) 0.2 (0.0-0.4) X10*3/uL Baso # (Auto) 0.0 (0.0-0.2) X10*3/uL Abs Immat Gran (auto) 0.01 (0.00-0.03) X10*3/uL Absolute Neuts (auto) 2.9 (2.0-8.3) x10*3/uL Absolute Nucleated RBC 0.000 (0.0-0.012) X10*3/uL Nucleated RBC % (auto) 0.0 (0.0-0.2) /100WBC Sodium 142 (135-145) mmol/L Potassium 3.1 L D (3.3-5.1) mmol/L Chloride 101 (96-108) mmol/L Carbon Dioxide 28 (22-29) mmol/L Anion Gap 16 (12-20) BUN 5 L (9-16) mg/dL Creatinine 0.62 (0.5-1.4) mg/dL Estim Creat Clear Calc 232.1 Estimated GFR > 60 Random Glucose 130 H (60-115) mg/dL Calcium 8.9 (8.4-10.2) mg/dL Total Bilirubin 0.3 (0.0-1.0) mg/dL Direct Bilirubin 0.2 (0.0-0.5) mg/dL AST 29 D (5-37) U/L ALT 30 (0-40) U/L Alkaline Phosphatase 57 D (39-117) U/L Total Protein 6.1 L (6.5-8.0) g/dL Albumin 3.4 L (3.5-5.0) g/dL Lipase 15 (8-78) U/L Urine Color Urine Appearance Urine pH (5.0-9.0) Ur Specific [place] (1.005-1.025) Urine Protein (Neg-Trace) mg/dL Urine Glucose (UA) (Negative) mg/dL Urine Ketones (Negative) mg/dL Urine Blood (Negative) Urine Nitrite (Negative) Ur Leukocyte Esterase (Negative) Urine Opiates Screen (Not Detect) Urine Fentanyl Screen (Not Detect) Ur Barbiturates Screen (Not Detect) Ur Phencyclidine Scrn (Not Detect) Ur Amphetamines Screen (Not Detect) U Benzodiazepines Scrn (Not Detect) Urine Cocaine Screen (Not Detect) U Marijuana (THC) Screen (Not Detect) Ethyl Alcohol < 10 mg/dL COVID-19 (LOS) (Negative) COVID-19 Clin Com ECG Data Attestation: I personally reviewed and interpreted this ECG as follows: Prior ECG tracings: available for review Interpretation: Vent. rate 84 BPM MN interval 154 ms QRS duration 94 ms QT/QTc 392/463 ms P-R-T axes 52 2 35 Normal sinus rhythm with sinus arrhythmia Minimal voltage criteria for LVH, may be normal variant ( R in aVL ) Borderline ECG When compared with ECG of 17-SEP-2020 03:17, No significant change was found 31-DEC-2021 17:31:31 Discharge Plan Discharge Clinical Impression: Borderline personality disorder, Polysubstance abuse, Depression with suicidal ideation Patient Disposition: Still a Patient Prescriptions: No Action albuterol sulfate [Ventolin HFA] 90 mcg/actuation HFA aerosol inhaler 1 puff inhalation Q6H PRN (Reason: Wheezing) lamotrigine 100 mg tablet 200 mg PO DAILY estradiol 2 mg Tablet 2 mg PO TID clonidine HCl 0.1 mg tablet 1 tab PO BID lamotrigine 200 mg tablet 1 tab PO DAILY prazosin 5 mg capsule 1 cap PO BEDTIME gabapentin 300 mg capsule 1 cap PO TID prazosin 2 mg capsule 1 cap PO BEDTIME Vyvanse 60 mg capsule 1 cap PO QAM
[2021-12-31] MEDS: Furosemide 40 MG TABLET PO (18:10)
[2021-12-31 18:14] LABS: Appearance Urine Clear; Color Urine Yellow; Glucose Urine UA Negative (Negative); Leukocyte Esterase Urine Negative (Negative); Nitrite Urine Negative (Negative); PH 6.5 (5.0-9.0); Urine Blood Negative (Negative); Urine Ketones Trace mg/dL (Negative); Urine Protein Negative (Neg-Trace)
[2021-12-31 18:29] LABS: Amphetamine Screen Urine POSITIVE (Not Detect); Barbiturates, Urine Not Detected (Not Detect); Benzodiazepines Screen Urine Not Detected (Not Detect); Cannabinoid Screen Urine POSITIVE (Not Detect); Cocaine Screen Urine POSITIVE (Not Detect); Fentanyl, urine POSITIVE (Not Detect); Opiate Screen Urine POSITIVE (Not Detect); Phencyclidine Screen Urine Not Detected (Not Detect)
[2021-12-31 19:56] LABS: MANUAL DIFF FLAG NO
[2021-12-31 20:04] LABS: Basophils Percent Auto 0.5 % (0-2); Eosinophils Absolute Auto 0.2 X10*3/uL (0.0-0.4); Eosinophils Percent Auto 3.3 % (0-4); Hematocrit 39.9 % (42.0-52.0); Hemoglobin 13.5 g/dl (14.0-18.0); Imm Gran Abs Auto 0.01 X10*3/uL (0.00-0.03); Imm Gran Pct Auto 0.2 % (0.0-0.4); Lymphocytes Percent Auto 35.8 % (20-40); Mean Corpuscular HGB Conc 33.8 g/dl (31.0-36.0); Mean Corpuscular Hemoglobin 28.7 pg (27.0-33.0); Mean Corpuscular Volume 84.7 fL (80.0-98.0); Mean Platelet Volume 10.1 fL (9.4-12.4); Monocytes Absolute Auto 0.5 X10*3/uL (0.1-1.2); Monocytes Percent Auto 8.5 % (2-11); Neutrophils Absolute Auto 2.9 x10*3/uL (2.0-8.3); Neutrophils Percent Auto 51.7 % (45-73); Platelet Count 278 X10*3/uL (160-400); Red Blood Count 4.71 X10*6/uL (4.60-5.80); Red Cell Distribution Width 13.9 % (11.0-16.0); White Blood Count 5.5 X10*3/uL (4.8-10.8)
[2021-12-31 20:25] LABS: Ethanol < 10 mg/dL
[2021-12-31 20:28] LABS: Alanine Aminotransferase 30 U/L (0-40); Albumin Level 3.4 g/dL (3.5-5.0); Alkaline Phosphatase 57 U/L (39-117); Anion Gap 16 (12-20); Aspartate Amino Transferase 29 U/L (5-37); Bilirubin Direct 0.2 mg/dL (0.0-0.5); Bilirubin Total 0.3 mg/dL (0.0-1.0); Blood Urea Nitrogen 5 mg/dL (9-16); Calcium 8.9 mg/dL (8.4-10.2); Carbon Dioxide 28 mmol/L (22-29); Chloride 101 mmol/L (96-108); Creatinine Clr Calc Pharmacy 232.1; Estimated Glomerular Filt Rate > 60; Glucose Random 130 mg/dL (60-115); Lipase 15 U/L (8-78); Potassium 3.1 mmol/L (3.3-5.1); Sodium 142 mmol/L (135-145); Total Protein 6.1 g/dL (6.5-8.0)
--- NOTE | 2021-12-31 20:56 | MHC.CARE ---
Care Team completed smart sheet.
[2022-01-01] MEDS: Potassium Chloride Packet 20 MEQ PACKET 40 MEQ PO (01:27)
--- NOTE | 2022-01-01 01:42 | MHC.CARE ---
Pt prefers female pronouns and to be called Maxee. T/w attempted to assess pt. Pt is agitated with CARE Team and increasingly agitated with questions asked an jumps up out of bed with an angry outburst. Pt states that she is tired of being homeless. She reports she has not been on her medications for some time now and wants to get back on them. Pt reports that she has providers. She denies AH/VH. She reports her mood has been shitty . Appetite is described as fair and sleep is awful Pt states she wants to go inpatient and wants to get back onto her suboxone. She reports wanting to kill herself and has been using a lot of things . Pt would not elaborate on SI plan. She was hard to engage. Pt is known to the CARE Team due to an previous assessment and has a hx of inpatient admissions. Pt report to provider that she has significant life stressors, is in debt for a lot of money, has been injecting heroin and tried multiple times to inject heroin today, but was unable find a vessel so she had to snort it. Pt has a son and expressed she needs to get better so she can see him. Due to pt's lack of engagement, pt will benefit from an risk assessment tomorrow to determine pt's risk/acuity. It is unclear if pt's suicidality is in the context of homelessness and substance use.
--- NOTE | 2022-01-01 06:00 | PC.NURSE ---
Patient slept through the night, no distress observed/reported, med rec completed/pending provider's approval, patient is being treated with Doxy 100 mg BID for cellulites bilateral arm from IV drug abuse, care team clinician clinician attempted to assess the patient however patient was not compliant, disposition is [facility]YSHA follow by care team in the morning, behavior non concerning mostly, will continue to monitor.
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
[2022-01-01] MEDS: Gabapentin 300 MG CAPSULE 600 MG PO ×2 (14:34→22:44)
[2022-01-01] MEDS: LORazepam 1 MG TABLET PO (14:34)
[2022-01-01] MEDS: Buprenorphine/Naloxone 8/2 mg FILM 2 FILM SUBLINGUAL (14:34)
[2022-01-01] MEDS: estradioL 0.5 MG TABLET 2 MG PO ×2 (14:34→22:43)
[2022-01-01 15:43] VITALS: BP 140/90; PULSE 78; RESP 15; TEMP 36.8; O2SAT 98
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
[2022-01-01] MEDS: Spironolactone 25 MG TABLET 50 MG PO (18:47)
[2022-01-01 22:30] VITALS: BP 125/71; PULSE 91
[2022-01-01] MEDS: Prazosin HCL 5 MG CAPSULE PO (22:43)
[2022-01-01] MEDS: Prazosin HCL 1 MG CAPSULE 2 MG PO (22:43)
[2022-01-02 08:30] VITALS: BP 132/72; PULSE 83; RESP 20; TEMP 36.7; O2SAT 95
[2022-01-02] MEDS: estradioL 0.5 MG TABLET 2 MG PO ×3 (08:56→22:41)
[2022-01-02] MEDS: Gabapentin 300 MG CAPSULE 600 MG PO ×3 (08:57→22:42)
[2022-01-02] MEDS: Spironolactone 25 MG TABLET 50 MG PO ×2 (08:58→17:54)
[2022-01-02] MEDS: lamoTRIgine 100 MG TABLET 200 MG PO (08:58)
[2022-01-02] MEDS: Buprenorphine/Naloxone 8/2 mg FILM 2 FILM SUBLINGUAL (08:59)
[2022-01-02] MEDS: Nicotine 21 MG PATCH.TD24 TRANSDERMA (09:00)
[2022-01-02 09:08] LABS: Estimated Average Glucose 103 mg/dL; Hemoglobin A1c % 5.2 %
[2022-01-02 09:23] LABS: Alanine Aminotransferase 20 U/L (0-40); Albumin Level 3.2 g/dL (3.5-5.0); Alkaline Phosphatase 58 U/L (39-117); Anion Gap 18 (12-20); Aspartate Amino Transferase 17 U/L (5-37); Bilirubin Total 0.2 mg/dL (0.0-1.0); Blood Urea Nitrogen 17 mg/dL (9-16); Calcium 8.5 mg/dL (8.4-10.2); Carbon Dioxide 25 mmol/L (22-29); Chloride 102 mmol/L (96-108); Cholesterol 116 mg/dL; Creatinine Clr Calc Pharmacy 239.8; Estimated Glomerular Filt Rate > 60; Glucose Fasting 91 mg/dL (60-99); HDL Cholesterol 34 mg/dL; LDL Cholesterol Calculated 64 mg/dl; Potassium 3.9 mmol/L (3.3-5.1); Sodium 141 mmol/L (135-145); Total Protein 5.8 g/dL (6.5-8.0); Triglycerides 94 mg/dL
[2022-01-02 09:42] LABS: Thyroid Stimulating Hormone 2.22 uIU/mL (0.32-4.0)
[2022-01-02 09:53] LABS: Folate 10.2 ng/mL (> or = 4.0); Vitamin B12 844 pg/mL (200-900)
--- NOTE | 2022-01-02 10:00 | P.PNPSI_ITS ---
Subjective Subjective Date of Service: 01/02/22 Reason For Visit: SI Subjective Notes: Conditional Voluntary Interim History: Pt reports feeling very depressed, hopeless. She reports slightly better sleep last night. However, she reports having nightmares. She reports passive SI. No VH/AH. Mostly in room no behavioral concerns. Medication Compliance: Yes Side effects from medications: No Attending Groups: No Review of Systems Review of Systems Constitutional: No Fever, No Chills ENT/Mouth: No Ear Pain, No Nasal Congestion, No sore throat Eyes: No Eye Pain, No Swelling, No Redness Cardiovascular: No Chest Pain, No SOB Respiratory: No Cough, No Sputum, No Dyspnea Gastrointestinal: No Nausea, No Vomiting, No Diarrhea, No Hematochezia, No Melena Genitourinary: No Dysuria, No Urinary Frequency, No Hematuria Musculoskeletal: No Myalgias Skin: Multiple hard red areas to both arms, No Skin Lesions, No rash Neuro: No Weakness, No Numbness, No Paresthesias, No Dizziness, No Headache Psych: positive Anxiety, positive Depression, positive SI Heme/Lymph: No Lymphadenopathy Endocrine: No Polyuria, No Polydipsia Yes all other systems are reviewed and are negative Mental Status Exam Mental Status Exam Narrative: Appearance: wearing hospital gown, fair hygiene in NAD Behavior:cooperative psychomotor: no agitation or retardation noted Speech:clear, normal rate/rhythm/volume, spontaneous Thought process:linear Thought content:no signs of psychosis, overwhelmed, hopeless. Mood: depressed Affect: congruent, blunted. SI:passive HI:none VH/AH:none Delusions: none Insight/judgment: poor x 2. Memory/cog: alert, oriented x 3. Diagnostics Vital Signs (24Hr): Vital Signs - 24 hr 01/03/22 09:25 01/03/22 18:00 Temperature 98.0 F Pulse Rate 86 97 Respiratory Rate 18 20 Blood Pressure 138/78 136/85 Pulse Oximetry 97 97 Oxygen Delivery Method Room Air Room Air BMI result Body Mass Index 44.3 Labs Results: 12/31/21 19:50 01/02/22 08:04 Labs: Laboratory Results - last 48 hr 01/02/22 01/02/22 01/02/22 08:04 08:04 08:05 Sodium 141 Potassium 3.9 D Chloride 102 Carbon Dioxide 25 Anion Gap 18 BUN 17 H D Creatinine 0.60 Estim Creat Clear Calc 239.8 Estimated GFR > 60 Fasting Glucose 91 Estimat Average Glucose 103 Hemoglobin A1c % 5.2 Calcium 8.5 Total Bilirubin 0.2 AST 17 D ALT 20 Alkaline Phosphatase 58 Total Protein 5.8 L Albumin 3.2 L Triglycerides 94 Cholesterol 116 D LDL Cholesterol, Calc 64 HDL Cholesterol 34 D Vitamin B12 844 Folate 10.2 TSH 2.22 Medications Medications Current Medications Acetaminophen (Acetaminophen 325 Mg Tablet) 650 mg PO Q6H PRN PRN Reason: Headache/Pain Mild Scale (1-3) Al Hydroxide/Mg Hydroxide (Magnesium Hydrox/Alum Hydrox 30 Ml Oral.Susp) 30 ml PO Q6H PRN PRN Reason: Heartburn/Nausea Albuterol Sulfate (Albuterol Sulfate 90 Mcg 8 Gm Inhaler) 1 puff INHALE Q6H PRN PRN Reason: Wheezing Amphetamine/Dextroamphetamine (Dextroamphetamine/Amphetamine Xr 10 Mg Cap.Er.24h) 10 mg PO DAILY [facility] Last Admin: 01/03/22 09:31 Dose: 10 mg Buprenorphine/Naloxone (Buprenorphine/Naloxone 8/2 Mg Film) 2 film SUBLINGUAL DAILY [facility] Last Admin: 01/03/22 09:32 Dose: 2 film Clonidine HCl (Clonidine Hcl 0.1 Mg Tablet) 0.1 mg PO BID PRN; Protocol PRN Reason: anxiety Doxycycline Hyclate (Doxycycline Hyclate 100 Mg Tablet) 100 mg PO Q12H [facility] Last Admin: 01/03/22 21:18 Dose: 100 mg Estradiol (Estradiol 0.5 Mg Tablet) 2 mg PO TID [facility] Last Admin: 01/03/22 21:18 Dose: 2 mg Gabapentin (Gabapentin 300 Mg Capsule) 600 mg PO TID [facility] Last Admin: 01/03/22 21:19 Dose: 600 mg Hydroxyzine HCl (Hydroxyzine Hcl 25 Mg Tablet) 25 mg PO Q6H PRN PRN Reason: Anxiety Lamotrigine (Lamotrigine 100 Mg Tablet) 200 mg PO DAILY [facility] Last Admin: 01/03/22 09:30 Dose: 200 mg Lorazepam (Lorazepam 1 Mg Tablet) 1 mg PO BID PRN PRN Reason: Anxiety Last Admin: 01/03/22 17:11 Dose: 1 mg Magnesium Hydroxide (Milk Of Magnesia 30 Ml Oral.Susp) 30 ml PO DAILY PRN PRN Reason: Constipation Nicotine (Nicotine 21 Mg Patch.Td24) 21 mg TRANSDERMA DAILY [facility] Last Admin: 01/03/22 09:34 Dose: 21 mg Nicotine Polacrilex (Nicotine Polacrilex 2 Mg Gum) 2 mg BUCCAL Q1H PRN PRN Reason: Nicotine Cravings Last Admin: 01/03/22 17:11 Dose: 2 mg Pharmacy Consult (Consult Rx Perform Med Rec) 1 each MISCELLANE ONCE PRN PRN Reason: Consult order Prazosin HCl (Prazosin Hcl 5 Mg Capsule) 5 mg PO BEDTIME [facility]; Protocol Last Admin: 01/03/22 21:20 Dose: 5 mg Prazosin HCl (Prazosin Hcl 1 Mg Capsule) 2 mg PO BEDTIME [facility]; Protocol Last Admin: 01/03/22 21:19 Dose: 2 mg Spironolactone (Spironolactone 25 Mg Tablet) 50 mg PO BID@0900,1800 [facility]; Protocol Last Admin: 01/03/22 18:07 Dose: 50 mg Trazodone HCl (Trazodone Hcl 50 Mg Tablet) 50 mg PO BEDTIME PRN PRN Reason: Insomnia Allergies Allergies Allergy/AdvReac Type Severity Reaction Status Date / Time aripiprazole [From [facility]] Allergy Unknown UNKNOWN Verified 10/18/20 16:33 Assessment & Plan Assessment & Plan (1) Bipolar 2 disorder, major depressive episode: Status: Acute Code(s): F31.81 - Bipolar II disorder (2) Borderline personality disorder: Status: Acute Code(s): F60.3 - Borderline personality disorder (3) Opioid use disorder, moderate, dependence: Status: Acute Code(s): F11.20 - Opioid dependence, uncomplicated (4) Cocaine use disorder, moderate, dependence: Status: Acute Code(s): F14.20 - Cocaine dependence, uncomplicated Plan Li is a 31 M-to-F trans woman who self presented to [facility] ED reporting increase depression, SI in context of recent relapsed on opioids and cocaine and multiple psychosocial stressors including lack of housing and owing money to people she reports are dangerous and she worries about retaliation. Utox positive for opioids, cocaine, amphetamine, cannabinoids. we discussed risks, benefits and alternative treatment options. PLAN 1. Admit to M3, CV, 15 minutes checks for safety 2. restart suboxone 16mg SL daily- plan for pt to be referred to clinic to get sublocade IM 3. continue lamictal, clonidine. pt's out provider rx vyvanse, pt informed she will have to follow up with OP provider to contiunes RX given concerns of abuse or misuse as she continues to work on recovery. 4. aftercare planning. 01/02- continue tx. while on unit may be prescribed adderall in lie of vyvanse, however, pt understands this medication will not be rx on discharge as she will follow up with OP prescriber for rx of vyvvanse. I spent minutes with the patient and/or on the patient floor today, greater than?50% of which was spent counseling/coordinating care. Reason for contiued inpatient stay Substantial Risk for: harm to self
[2022-01-02] MEDS: Dextroamphetamine/Amphetamine XR 10 MG CAP.ER.24H PO (15:10)
[2022-01-02 18:23] VITALS: BP 142/93; PULSE 97; RESP 20; O2SAT 98
[2022-01-02 22:40] VITALS: BP 132/67; PULSE 85; RESP 16; TEMP 36.2; O2SAT 95
[2022-01-02] MEDS: Prazosin HCL 5 MG CAPSULE PO (22:41)
[2022-01-02] MEDS: Prazosin HCL 1 MG CAPSULE 2 MG PO (22:42)
[2022-01-03 09:25] VITALS: BP 138/78; PULSE 86; RESP 18; TEMP 36.7; O2SAT 97
[2022-01-03] MEDS: Spironolactone 25 MG TABLET 50 MG PO ×2 (09:29→18:07)
[2022-01-03] MEDS: Gabapentin 300 MG CAPSULE 600 MG PO ×3 (09:30→21:19)
[2022-01-03] MEDS: lamoTRIgine 100 MG TABLET 200 MG PO (09:30)
[2022-01-03] MEDS: Dextroamphetamine/Amphetamine XR 10 MG CAP.ER.24H PO (09:31)
[2022-01-03] MEDS: Buprenorphine/Naloxone 8/2 mg FILM 2 FILM SUBLINGUAL (09:32)
[2022-01-03] MEDS: Nicotine 21 MG PATCH.TD24 TRANSDERMA (09:34)
--- NOTE | 2022-01-03 10:02 | HO.PSYCHPN ---
Subjective Subjective Date of Service: 01/03/22 Reason For Visit: SI Subjective Notes: Conditional Voluntary Interim History: Pt very tearful today. Pt continues to report feeling very depressed, hopeless. She remembers friends she has lost. She reports feeling lonely. She reports slightly better sleep last night. However, she reports having nightmares. She reports passive SI. No VH/AH. Mostly in room no behavioral concerns. Review of Systems Review of Systems Constitutional: No Fever, No Chills ENT/Mouth: No Ear Pain, No Nasal Congestion, No sore throat Eyes: No Eye Pain, No Swelling, No Redness Cardiovascular: No Chest Pain, No SOB Respiratory: No Cough, No Sputum, No Dyspnea Gastrointestinal: No Nausea, No Vomiting, No Diarrhea, No Hematochezia, No Melena Genitourinary: No Dysuria, No Urinary Frequency, No Hematuria Musculoskeletal: No Myalgias Skin: Multiple hard red areas to both arms, No Skin Lesions, No rash Neuro: No Weakness, No Numbness, No Paresthesias, No Dizziness, No Headache Psych: positive Anxiety, positive Depression, positive SI Heme/Lymph: No Lymphadenopathy Endocrine: No Polyuria, No Polydipsia Yes all other systems are reviewed and are negative Mental Status Exam Mental Status Exam Narrative: Appearance: wearing hospital gown, fair hygiene in NAD Behavior:cooperative psychomotor: no agitation or retardation noted Speech:clear, normal rate/rhythm/volume, spontaneous Thought process:linear Thought content:no signs of psychosis, overwhelmed, hopeless. Mood: depressed Affect: congruent, blunted. SI:passive HI:none VH/AH:none Delusions: none Insight/judgment: poor x 2. Memory/cog: alert, oriented x 3. Diagnostics Vital Signs (24Hr): Vital Signs - 24 hr 01/03/22 09:25 01/03/22 18:00 Temperature 98.0 F Pulse Rate 86 97 Respiratory Rate 18 20 Blood Pressure 138/78 136/85 Pulse Oximetry 97 97 Oxygen Delivery Method Room Air Room Air BMI result Body Mass Index 44.3 Labs Results: 12/31/21 19:50 01/02/22 08:04 Labs: Laboratory Results - last 48 hr 01/02/22 01/02/22 01/02/22 08:04 08:04 08:05 Sodium 141 Potassium 3.9 D Chloride 102 Carbon Dioxide 25 Anion Gap 18 BUN 17 H D Creatinine 0.60 Estim Creat Clear Calc 239.8 Estimated GFR > 60 Fasting Glucose 91 Estimat Average Glucose 103 Hemoglobin A1c % 5.2 Calcium 8.5 Total Bilirubin 0.2 AST 17 D ALT 20 Alkaline Phosphatase 58 Total Protein 5.8 L Albumin 3.2 L Triglycerides 94 Cholesterol 116 D LDL Cholesterol, Calc 64 HDL Cholesterol 34 D Vitamin B12 844 Folate 10.2 TSH 2.22 Medications Medications Current Medications Acetaminophen (Acetaminophen 325 Mg Tablet) 650 mg PO Q6H PRN PRN Reason: Headache/Pain Mild Scale (1-3) Al Hydroxide/Mg Hydroxide (Magnesium Hydrox/Alum Hydrox 30 Ml Oral.Susp) 30 ml PO Q6H PRN PRN Reason: Heartburn/Nausea Albuterol Sulfate (Albuterol Sulfate 90 Mcg 8 Gm Inhaler) 1 puff INHALE Q6H PRN PRN Reason: Wheezing Amphetamine/Dextroamphetamine (Dextroamphetamine/Amphetamine Xr 10 Mg Cap.Er.24h) 10 mg PO DAILY [facility] Last Admin: 01/03/22 09:31 Dose: 10 mg Buprenorphine/Naloxone (Buprenorphine/Naloxone 8/2 Mg Film) 2 film SUBLINGUAL DAILY [facility] Last Admin: 01/03/22 09:32 Dose: 2 film Clonidine HCl (Clonidine Hcl 0.1 Mg Tablet) 0.1 mg PO BID PRN; Protocol PRN Reason: anxiety Doxycycline Hyclate (Doxycycline Hyclate 100 Mg Tablet) 100 mg PO Q12H [facility] Last Admin: 01/03/22 21:18 Dose: 100 mg Estradiol (Estradiol 0.5 Mg Tablet) 2 mg PO TID [facility] Last Admin: 01/03/22 21:18 Dose: 2 mg Gabapentin (Gabapentin 300 Mg Capsule) 600 mg PO TID [facility] Last Admin: 01/03/22 21:19 Dose: 600 mg Hydroxyzine HCl (Hydroxyzine Hcl 25 Mg Tablet) 25 mg PO Q6H PRN PRN Reason: Anxiety Lamotrigine (Lamotrigine 100 Mg Tablet) 200 mg PO DAILY [facility] Last Admin: 01/03/22 09:30 Dose: 200 mg Lorazepam (Lorazepam 1 Mg Tablet) 1 mg PO BID PRN PRN Reason: Anxiety Last Admin: 01/03/22 17:11 Dose: 1 mg Magnesium Hydroxide (Milk Of Magnesia 30 Ml Oral.Susp) 30 ml PO DAILY PRN PRN Reason: Constipation Nicotine (Nicotine 21 Mg Patch.Td24) 21 mg TRANSDERMA DAILY [facility] Last Admin: 01/03/22 09:34 Dose: 21 mg Nicotine Polacrilex (Nicotine Polacrilex 2 Mg Gum) 2 mg BUCCAL Q1H PRN PRN Reason: Nicotine Cravings Last Admin: 01/03/22 17:11 Dose: 2 mg Pharmacy Consult (Consult Rx Perform Med Rec) 1 each MISCELLANE ONCE PRN PRN Reason: Consult order Prazosin HCl (Prazosin Hcl 5 Mg Capsule) 5 mg PO BEDTIME [facility]; Protocol Last Admin: 01/03/22 21:20 Dose: 5 mg Prazosin HCl (Prazosin Hcl 1 Mg Capsule) 2 mg PO BEDTIME [facility]; Protocol Last Admin: 01/03/22 21:19 Dose: 2 mg Spironolactone (Spironolactone 25 Mg Tablet) 50 mg PO BID@0900,1800 [facility]; Protocol Last Admin: 01/03/22 18:07 Dose: 50 mg Trazodone HCl (Trazodone Hcl 50 Mg Tablet) 50 mg PO BEDTIME PRN PRN Reason: Insomnia Allergies Allergies Allergy/AdvReac Type Severity Reaction Status Date / Time aripiprazole [From [facility]] Allergy Unknown UNKNOWN Verified 10/18/20 16:33 Assessment & Plan Assessment & Plan (1) Bipolar 2 disorder, major depressive episode: Status: Acute Code(s): F31.81 - Bipolar II disorder (2) Borderline personality disorder: Status: Acute Code(s): F60.3 - Borderline personality disorder (3) Opioid use disorder, moderate, dependence: Status: Acute Code(s): F11.20 - Opioid dependence, uncomplicated (4) Cocaine use disorder, moderate, dependence: Status: Acute Code(s): F14.20 - Cocaine dependence, uncomplicated Plan Li is a 31 M-to-F trans woman who self presented to [facility] ED reporting increase depression, SI in context of recent relapsed on opioids and cocaine and multiple psychosocial stressors including lack of housing and owing money to people she reports are dangerous and she worries about retaliation. Utox positive for opioids, cocaine, amphetamine, cannabinoids. we discussed risks, benefits and alternative treatment options. PLAN 1. Admit to M3, CV, 15 minutes checks for safety 2. restart suboxone 16mg SL daily- plan for pt to be referred to clinic to get sublocade IM 3. continue lamictal, clonidine. pt's out provider rx vyvanse, pt informed she will have to follow up with OP provider to contiunes RX given concerns of abuse or misuse as she continues to work on recovery. 4. aftercare planning. 01/02- continue tx. while on unit may be prescribed adderall in lie of vyvanse, however, pt understands this medication will not be rx on discharge as she will follow up with OP prescriber for rx of vyvvanse. 01/03 continue tx. I spent minutes with the patient and/or on the patient floor today, greater than?50% of which was spent counseling/coordinating care. Reason for contiued inpatient stay Substantial Risk for: harm to self and inability to function
[2022-01-03] MEDS: estradioL 0.5 MG TABLET 2 MG PO ×3 (10:04→21:18)
[2022-01-03] MEDS: LORazepam 1 MG TABLET PO (17:11)
[2022-01-03] MEDS: Nicotine Polacrilex 2 MG GUM BUCCAL (17:11)
[2022-01-03 18:00] VITALS: BP 136/85; PULSE 97; RESP 20; O2SAT 97
[2022-01-03] MEDS: Prazosin HCL 1 MG CAPSULE 2 MG PO (21:19)
[2022-01-03] MEDS: Prazosin HCL 5 MG CAPSULE PO (21:20)
[2022-01-04] MEDS: Nicotine 21 MG PATCH.TD24 TRANSDERMA (09:51)
[2022-01-04] MEDS: estradioL 0.5 MG TABLET 2 MG PO ×3 (09:52→21:04)
[2022-01-04] MEDS: Dextroamphetamine/Amphetamine XR 10 MG CAP.ER.24H PO (09:52)
[2022-01-04] MEDS: Gabapentin 300 MG CAPSULE 600 MG PO ×3 (09:53→21:05)
[2022-01-04] MEDS: Spironolactone 25 MG TABLET 50 MG PO ×2 (09:54→18:40)
[2022-01-04] MEDS: lamoTRIgine 100 MG TABLET 200 MG PO (09:54)
[2022-01-04] MEDS: Buprenorphine/Naloxone 8/2 mg FILM 2 FILM SUBLINGUAL (09:55)
[2022-01-04 09:59] VITALS: BP 123/60; PULSE 86; TEMP 36.6; O2SAT 98
[2022-01-04] MEDS: LORazepam 1 MG TABLET PO (13:28)
--- NOTE | 2022-01-04 13:45 | P.PNPSI_ITS ---
Subjective Subjective Date of Service: 01/04/22 Reason For Visit: SI Subjective Notes: Conditional Voluntary Interim History: Pt reports feeling better less depressed. No SI/HI. She reports she talked with friend who will let her stay with her. Pt reports sleeping well. Wants to get sublocade. Medication Compliance: Yes Side effects from medications: No Diagnostics Vital Signs (24Hr): Vital Signs - 24 hr 01/03/22 18:00 01/04/22 09:59 Temperature 98 F Pulse Rate 97 86 Respiratory Rate 20 Blood Pressure 136/85 123/60 Pulse Oximetry 97 98 Oxygen Delivery Method Room Air Room Air BMI result Body Mass Index 44.3 Labs Results: 12/31/21 19:50 01/02/22 08:04 Medications Medications Current Medications Acetaminophen (Acetaminophen 325 Mg Tablet) 650 mg PO Q6H PRN PRN Reason: Headache/Pain Mild Scale (1-3) Al Hydroxide/Mg Hydroxide (Magnesium Hydrox/Alum Hydrox 30 Ml Oral.Susp) 30 ml PO Q6H PRN PRN Reason: Heartburn/Nausea Albuterol Sulfate (Albuterol Sulfate 90 Mcg 8 Gm Inhaler) 1 puff INHALE Q6H PRN PRN Reason: Wheezing Amphetamine/Dextroamphetamine (Dextroamphetamine/Amphetamine Xr 10 Mg Cap.Er.24h ) 20 mg PO DAILY [facility] Buprenorphine/Naloxone (Buprenorphine/Naloxone 8/2 Mg Film) 2 film SUBLINGUAL DAILY [facility] Last Admin: 01/04/22 09:55 Dose: 2 film Clonidine HCl (Clonidine Hcl 0.1 Mg Tablet) 0.1 mg PO BID PRN; Protocol PRN Reason: anxiety Doxycycline Hyclate (Doxycycline Hyclate 100 Mg Tablet) 100 mg PO Q12H [facility] Last Admin: 01/04/22 09:54 Dose: 100 mg Estradiol (Estradiol 0.5 Mg Tablet) 2 mg PO TID [facility] Last Admin: 01/04/22 09:52 Dose: 2 mg Gabapentin (Gabapentin 300 Mg Capsule) 600 mg PO TID [facility] Last Admin: 01/04/22 09:53 Dose: 600 mg Hydroxyzine HCl (Hydroxyzine Hcl 25 Mg Tablet) 25 mg PO Q6H PRN PRN Reason: Anxiety Lamotrigine (Lamotrigine 100 Mg Tablet) 200 mg PO DAILY [facility] Last Admin: 01/04/22 09:54 Dose: 200 mg Lorazepam (Lorazepam 1 Mg Tablet) 1 mg PO BID PRN PRN Reason: Anxiety Last Admin: 01/04/22 13:28 Dose: 1 mg Magnesium Hydroxide (Milk Of Magnesia 30 Ml Oral.Susp) 30 ml PO DAILY PRN PRN Reason: Constipation Nicotine (Nicotine 21 Mg Patch.Td24) 21 mg TRANSDERMA DAILY [facility] Last Admin: 01/04/22 09:51 Dose: 21 mg Nicotine Polacrilex (Nicotine Polacrilex 2 Mg Gum) 2 mg BUCCAL Q1H PRN PRN Reason: Nicotine Cravings Last Admin: 01/03/22 17:11 Dose: 2 mg Pharmacy Consult (Consult Rx Perform Med Rec) 1 each MISCELLANE ONCE PRN PRN Reason: Consult order Prazosin HCl (Prazosin Hcl 5 Mg Capsule) 5 mg PO BEDTIME [facility]; Protocol Last Admin: 01/03/22 21:20 Dose: 5 mg Prazosin HCl (Prazosin Hcl 1 Mg Capsule) 2 mg PO BEDTIME [facility]; Protocol Last Admin: 01/03/22 21:19 Dose: 2 mg Spironolactone (Spironolactone 25 Mg Tablet) 50 mg PO BID@0900,1800 [facility]; Protocol Last Admin: 01/04/22 09:54 Dose: 50 mg Trazodone HCl (Trazodone Hcl 50 Mg Tablet) 50 mg PO BEDTIME PRN PRN Reason: Insomnia Allergies Allergies Allergy/AdvReac Type Severity Reaction Status Date / Time aripiprazole [From ABILIY] Allergy Unknown UNKNOWN Verified 10/18/20 16:33 Assessment & Plan Assessment & Plan (1) Bipolar 2 disorder, major depressive episode: Status: Acute Code(s): F31.81 - Bipolar II disorder (2) Borderline personality disorder: Status: Acute Code(s): F60.3 - Borderline personality disorder (3) Opioid use disorder, moderate, dependence: Status: Acute Code(s): F11.20 - Opioid dependence, uncomplicated (4) Cocaine use disorder, moderate, dependence: Status: Acute Code(s): F14.20 - Cocaine dependence, uncomplicated Plan Li is a 31 M-to-F trans woman who self presented to [facility] reporting increase depression, SI in context of recent relapsed on opioids and cocaine and multiple psychosocial stressors including lack of housing and owing money to people she reports are dangerous and she worries about retaliation. Utox positive for opioids, cocaine, amphetamine, cannabinoids. we discussed risks, benefits and alternative treatment options. PLAN 1. Admit to M3, CV, 15 minutes checks for safety 2. restart suboxone 16mg SL daily- plan for pt to be referred to clinic to get sublocade IM 3. continue lamictal, clonidine. pt's out provider rx vyvanse, pt informed she will have to follow up with OP provider to contiunes RX given concerns of abuse or misuse as she continues to work on recovery. 4. aftercare planning. 01/02- continue tx. while on unit may be prescribed adderall in lie of vyvanse, however, pt understands this medication will not be rx on discharge as she will follow up with OP prescriber for rx of vyvvanse. 01/03 continue tx. 01/04 continue tx/ I spent minutes with the patient and/or on the patient floor today, greater than?50% of which was spent counseling/coordinating care. Reason for contiued inpatient stay Substantial Risk for: harm to self
[2022-01-04 18:30] VITALS: BP 122/56; PULSE 91; RESP 16; TEMP 36.3; O2SAT 95
[2022-01-04 21:00] VITALS: BP 135/76; PULSE 91; RESP 16; TEMP 36.9; O2SAT 94
[2022-01-04] MEDS: Prazosin HCL 1 MG CAPSULE 2 MG PO (21:05)
[2022-01-04] MEDS: Prazosin HCL 5 MG CAPSULE PO (21:05)
[2022-01-04] MEDS: Acetaminophen 325 MG TABLET 650 MG PO (23:16)
--- NOTE | 2022-01-05 07:54 | P.PNPSI_ITS ---
Subjective Subjective Date of Service: 01/05/22 Reason For Visit: SI Subjective Notes: Conditional Voluntary Interim History: Pt continues reports feeling better less depressed. No SI/HI. No side effects to meds. Worried that her OP psych provider does not know that she relapsed. She reports she talked with friend who will let her stay with her. Pt reports sleepi ng well. Wants to get sublocade. Medication Compliance: Yes Review of Systems Review of Systems Constitutional: No Fever, No Chills ENT/Mouth: No Ear Pain, No Nasal Congestion, No sore throat Eyes: No Eye Pain, No Swelling, No Redness Cardiovascular: No Chest Pain, No SOB Respiratory: No Cough, No Sputum, No Dyspnea Gastrointestinal: No Nausea, No Vomiting, No Diarrhea, No Hematochezia, No Melena Genitourinary: No Dysuria, No Urinary Frequency, No Hematuria Musculoskeletal: No Myalgias Skin: Multiple hard red areas to both arms, No Skin Lesions, No rash Neuro: No Weakness, No Numbness, No Paresthesias, No Dizziness, No Headache Psych: positive Anxiety, positive Depression, positive SI Heme/Lymph: No Lymphadenopathy Endocrine: No Polyuria, No Polydipsia Yes all other systems are reviewed and are negative Mental Status Exam Mental Status Exam Narrative: Appearance: wearing hospital gown, fair hygiene in NAD Behavior:cooperative psychomotor: no agitation or retardation noted Speech:clear, normal rate/rhythm/volume, spontaneous Thought process:linear Thought content:no signs of psychosis, overwhelmed, hopeless. Mood: depressed Affect: congruent, blunted. SI:passive HI:none VH/AH:none Delusions: none Insight/judgment: poor x 2. Memory/cog: alert, oriented x 3. Diagnostics Vital Signs (24Hr): Vital Signs - 24 hr 01/06/22 09:05 01/06/22 18:31 01/06/22 20:20 Temperature 98.2 F 97.2 F Pulse Rate 91 113 H 99 Respiratory Rate 18 18 Blood Pressure 122/61 168/89 H 125/59 L Pulse Oximetry 94 95 Oxygen Delivery Method Room Air Room Air BMI result Body Mass Index 44.3 Labs Results: 12/31/21 19:50 01/02/22 08:04 Medications Medications Current Medications Acetaminophen (Acetaminophen 325 Mg Tablet) 650 mg PO Q6H PRN PRN Reason: Headache/Pain Mild Scale (1-3) Last Admin: 01/06/22 11:14 Dose: 650 mg Al Hydroxide/Mg Hydroxide (Magnesium Hydrox/Alum Hydrox 30 Ml Oral.Susp) 30 ml PO Q6H PRN PRN Reason: Heartburn/Nausea Albuterol Sulfate (Albuterol Sulfate 90 Mcg 8 Gm Inhaler) 1 puff INHALE Q6H PRN PRN Reason: Wheezing Amphetamine/Dextroamphetamine (Dextroamphetamine/Amphetamine Xr 10 Mg Cap.Er.24h) 20 mg PO DAILY [facility] Last Admin: 01/06/22 09:09 Dose: 20 mg Buprenorphine/Naloxone (Buprenorphine/Naloxone 8/2 Mg Film) 2 film SUBLINGUAL DAILY [facility] Last Admin: 01/06/22 09:09 Dose: 2 film Clonidine HCl (Clonidine Hcl 0.1 Mg Tablet) 0.1 mg PO BID PRN; Protocol PRN Reason: anxiety Doxycycline Hyclate (Doxycycline Hyclate 100 Mg Tablet) 100 mg PO Q12H [facility] Last Admin: 01/06/22 20:23 Dose: 100 mg Estradiol (Estradiol 0.5 Mg Tablet) 2 mg PO TID [facility] Last Admin: 01/06/22 20:22 Dose: 2 mg Gabapentin (Gabapentin 300 Mg Capsule) 600 mg PO TID [facility] Last Admin: 01/06/22 20:22 Dose: 600 mg Hydroxyzine HCl (Hydroxyzine Hcl 25 Mg Tablet) 25 mg PO Q6H PRN PRN Reason: Anxiety Lamotrigine (Lamotrigine 100 Mg Tablet) 200 mg PO DAILY [facility] Last Admin: 01/06/22 09:09 Dose: 200 mg Lorazepam (Lorazepam 1 Mg Tablet) 1 mg PO BID PRN PRN Reason: anxiety Last Admin: 01/06/22 20:42 Dose: 1 mg Magnesium Hydroxide (Milk Of Magnesia 30 Ml Oral.Susp) 30 ml PO DAILY PRN PRN Reason: Constipation Nicotine (Nicotine 21 Mg Patch.Td24) 21 mg TRANSDERMA DAILY [facility] Last Admin: 01/06/22 09:07 Dose: 21 mg Nicotine Polacrilex (Nicotine Polacrilex 2 Mg Gum) 2 mg BUCCAL Q1H PRN PRN Reason: Nicotine Cravings Last Admin: 01/05/22 19:49 Dose: 2 mg Ondansetron HCl (Ondansetron Odt 4 Mg Tab.Rapdis) 4 mg TRANSLINGU Q4H PRN PRN Reason: Nausea Pharmacy Consult (Consult Rx Perform Med Rec) 1 each MISCELLANE ONCE PRN PRN Reason: Consult order Prazosin HCl (Prazosin Hcl 5 Mg Capsule) 5 mg PO BEDTIME [facility]; Protocol Last Admin: 01/06/22 20:23 Dose: 5 mg Prazosin HCl (Prazosin Hcl 1 Mg Capsule) 2 mg PO BEDTIME [facility]; Protocol Last Admin: 01/06/22 20:23 Dose: 2 mg Spironolactone (Spironolactone 25 Mg Tablet) 50 mg PO BID@0900,1800 [facility]; Protocol Last Admin: 01/06/22 18:23 Dose: 50 mg Trazodone HCl (Trazodone Hcl 50 Mg Tablet) 50 mg PO BEDTIME PRN PRN Reason: Insomnia Allergies Allergies Allergy/AdvReac Type Severity Reaction Status Date / Time aripiprazole [From ABILIFY] Allergy Unknown UNKNOWN Verified 10/18/20 16:33 Assessment & Plan Assessment & Plan (1) Bipolar 2 disorder, major depressive episode: Status: Acute Code(s): F31.81 - Bipolar II disorder (2) Borderline personality disorder: Status: Acute Code(s): F60.3 - Borderline personality disorder (3) Opioid use disorder, moderate, dependence: Status: Acute Code(s): F11.20 - Opioid dependence, uncomplicated (4) Cocaine use disorder, moderate, dependence: Status: Acute Code(s): F14.20 - Cocaine dependence, uncomplicated Plan Li is a 31 M-to-F trans woman who self presented to [facility] reporting increase depression, SI in context of recent relapsed on opioids and cocaine and multiple psychosocial stressors including lack of housing and owing money to people she reports are dangerous and she worries about retaliation. Utox positive for opioids, cocaine, amphetamine, cannabinoids. we discussed risks, benefits and alternative treatment options. PLAN 1. Admit to M3, CV, 15 minutes checks for safety 2. restart suboxone 16mg SL daily- plan for pt to be referred to clinic to get sublocade IM 3. continue lamictal, clonidine. pt's out provider rx makenna pt informed she will have to follow up with OP provider to contiunes RX given concerns of abuse or misuse as she continues to work on recovery. 4. aftercare planning. 01/02- continue tx. while on unit may be prescribed adderall in lie of vyvanse, however, pt understands this medication will not be rx on discharge as she will follow up with OP prescriber for rx of vyvvanse. 01/03 continue tx. 01/04 continue tx/ 01/05 continue tx. I spent minutes with the patient and/or on the patient floor today, greater than?50% of which was spent counseling/coordinating care. Reason for contiued inpatient stay Substantial Risk for: harm to self
[2022-01-05 08:35] VITALS: BP 126/60; PULSE 89; RESP 20; TEMP 36.4; O2SAT 93
[2022-01-05] MEDS: Acetaminophen 325 MG TABLET 650 MG PO ×3 (08:37→23:37)
[2022-01-05] MEDS: estradioL 0.5 MG TABLET 2 MG PO ×3 (08:39→21:01)
[2022-01-05] MEDS: Dextroamphetamine/Amphetamine XR 10 MG CAP.ER.24H 20 MG PO (08:39)
[2022-01-05] MEDS: lamoTRIgine 100 MG TABLET 200 MG PO (08:40)
[2022-01-05] MEDS: Gabapentin 300 MG CAPSULE 600 MG PO ×3 (08:40→21:01)
[2022-01-05] MEDS: Spironolactone 25 MG TABLET 50 MG PO ×2 (08:40→17:49)
[2022-01-05] MEDS: Nicotine 21 MG PATCH.TD24 TRANSDERMA (08:41)
[2022-01-05] MEDS: Buprenorphine/Naloxone 8/2 mg FILM 2 FILM SUBLINGUAL (08:42)
[2022-01-05] MEDS: LORazepam 1 MG TABLET PO ×2 (11:46→19:07)
--- NOTE | 2022-01-05 14:28 | MHC.RECOVRN ---
This engineering writer met w/ pt, as per discussed w/ Provider. Pt interested in Sublocade Injection. Pt reports received 12, 300mg Sublocade injections at [facility] in [place], last injection received a few months ago. Pt reports Sublocade was helpful. Pt states stayed on 300mg dose, as towards end of month would experience some withdrawals, pt states this lessened the longer pt was on Sublocade. This engineering writer discussed intake appt at [facility], appointment card provided, discussed prior approval and delivery process for Sublocade taking 7-10 days. Pt verbalized understanding. Pt gave consent to change patient demographic information to reflect pronouns/name in EHR.
[2022-01-05] MEDS: Nicotine Polacrilex 2 MG GUM BUCCAL (19:49)
[2022-01-05 20:00] VITALS: BP 129/89; PULSE 100; RESP 18; TEMP 36.3; O2SAT 99
[2022-01-05] MEDS: Prazosin HCL 1 MG CAPSULE 2 MG PO (21:02)
[2022-01-05] MEDS: Prazosin HCL 5 MG CAPSULE PO (21:02)
[2022-01-06 09:05] VITALS: BP 122/61; PULSE 91; RESP 18; TEMP 36.8; O2SAT 94
[2022-01-06] MEDS: Nicotine 21 MG PATCH.TD24 TRANSDERMA (09:07)
[2022-01-06] MEDS: estradioL 0.5 MG TABLET 2 MG PO ×3 (09:08→20:22)
[2022-01-06] MEDS: Gabapentin 300 MG CAPSULE 600 MG PO ×3 (09:08→20:22)
[2022-01-06] MEDS: lamoTRIgine 100 MG TABLET 200 MG PO (09:09)
[2022-01-06] MEDS: Dextroamphetamine/Amphetamine XR 10 MG CAP.ER.24H 20 MG PO (09:09)
[2022-01-06] MEDS: Spironolactone 25 MG TABLET 50 MG PO ×2 (09:09→18:23)
[2022-01-06] MEDS: Buprenorphine/Naloxone 8/2 mg FILM 2 FILM SUBLINGUAL (09:09)
[2022-01-06] MEDS: LORazepam 1 MG TABLET PO ×2 (11:14→20:42)
[2022-01-06] MEDS: Acetaminophen 325 MG TABLET 650 MG PO (11:14)
[2022-01-06 18:31] VITALS: BP 168/89; PULSE 113
[2022-01-06 20:20] VITALS: BP 125/59; PULSE 99; RESP 18; TEMP 36.2; O2SAT 95
[2022-01-06] MEDS: Prazosin HCL 1 MG CAPSULE 2 MG PO (20:23)
[2022-01-06] MEDS: Prazosin HCL 5 MG CAPSULE PO (20:23)
[2022-01-07 06:00] VITALS: BP 126/78; PULSE 93; RESP 18; TEMP 36.7; O2SAT 95
--- NOTE | 2022-01-07 07:55 | P.PNPSI_ITS ---
Subjective Subjective Date of Service: 01/06/22 Reason For Visit: SI Interim History: Pt continues reports feeling better less depressed. No SI/HI. No side effects to meds. Worried that her OP psych provider does not know that she relapsed. She reports she talked with friend who will let her stay with her. Pt reports sleeping well. Wants to get sublocade. Review of Systems Review of Systems Constitutional: No Fever, No Chills ENT/Mouth: No Ear Pain, No Nasal Congestion, No sore throat Eyes: No Eye Pain, No Swelling, No Redness Cardiovascular: No Chest Pain, No SOB Respiratory: No Cough, No Sputum, No Dyspnea Gastrointestinal: No Nausea, No Vomiting, No Diarrhea, No Hematochezia, No Melena Genitourinary: No Dysuria, No Urinary Frequency, No Hematuria Musculoskeletal: No Myalgias Skin: Multiple hard red areas to both arms, No Skin Lesions, No rash Neuro: No Weakness, No Numbness, No Paresthesias, No Dizziness, No Headache Psych: positive Anxiety, positive Depression, positive SI Heme/Lymph: No Lymphadenopathy Endocrine: No Polyuria, No Polydipsia Yes all other systems are reviewed and are negative Mental Status Exam Mental Status Exam Narrative: Appearance: wearing hospital gown, fair hygiene in NAD Behavior:cooperative psychomotor: no agitation or retardation noted Speech:clear, normal rate/rhythm/volume, spontaneous Thought process:linear Thought content:no signs of psychosis, future oriented, hopeful Mood: better Affect: congruent, brighter SI:none HI:none VH/AH:none Delusions: none Insight/judgment: poor x 2. Memory/cog: alert, oriented x 3. Diagnostics Vital Signs (24Hr): Vital Signs - 24 hr 01/06/22 09:05 01/06/22 18:31 01/06/22 20:20 Temperature 98.2 F 97.2 F Pulse Rate 91 113 H 99 Respiratory Rate 18 18 Blood Pressure 122/61 168/89 H 125/59 L Pulse Oximetry 94 95 Oxygen Delivery Method Room Air Room Air BMI result Body Mass Index 44.3 Labs Results: 12/31/21 19:50 01/02/22 08:04 Medications Medications Current Medications Acetaminophen (Acetaminophen 325 Mg Tablet) 650 mg PO Q6H PRN PRN Reason: Headache/Pain Mild Scale (1-3) Last Admin: 01/06/22 11:14 Dose: 650 mg Al Hydroxide/Mg Hydroxide (Magnesium Hydrox/Alum Hydrox 30 Ml Oral.Susp) 30 ml PO Q6H PRN PRN Reason: Heartburn/Nausea Albuterol Sulfate (Albuterol Sulfate 90 Mcg 8 Gm Inhaler) 1 puff INHALE Q6H PRN PRN Reason: Wheezing Amphetamine/Dextroamphetamine (Dextroamphetamine/Amphetamine Xr 10 Mg Cap.Er.24h) 20 mg PO DAILY [facility] Last Admin: 01/06/22 09:09 Dose: 20 mg Buprenorphine/Naloxone (Buprenorphine/Naloxone 8/2 Mg Film) 2 film SUBLINGUAL DAILY [facility] Last Admin: 01/06/22 09:09 Dose: 2 film Clonidine HCl (Clonidine Hcl 0.1 Mg Tablet) 0.1 mg PO BID PRN; Protocol PRN Reason: anxiety Doxycycline Hyclate (Doxycycline Hyclate 100 Mg Tablet) 100 mg PO Q12H [facility] Last Admin: 01/06/22 20:23 Dose: 100 mg Estradiol (Estradiol 0.5 Mg Tablet) 2 mg PO TID [facility] Last Admin: 01/06/22 20:22 Dose: 2 mg Gabapentin (Gabapentin 300 Mg Capsule) 600 mg PO TID [facility] Last Admin: 01/06/22 20:22 Dose: 600 mg Hydroxyzine HCl (Hydroxyzine Hcl 25 Mg Tablet) 25 mg PO Q6H PRN PRN Reason: Anxiety Lamotrigine (Lamotrigine 100 Mg Tablet) 200 mg PO DAILY [facility] Last Admin: 01/06/22 09:09 Dose: 200 mg Lorazepam (Lorazepam 1 Mg Tablet) 1 mg PO BID PRN PRN Reason: anxiety Last Admin: 01/06/22 20:42 Dose: 1 mg Magnesium Hydroxide (Milk Of Magnesia 30 Ml Oral.Susp) 30 ml PO DAILY PRN PRN Reason: Constipation Nicotine (Nicotine 21 Mg Patch.Td24) 21 mg TRANSDERMA DAILY [facility] Last Admin: 01/06/22 09:07 Dose: 21 mg Nicotine Polacrilex (Nicotine Polacrilex 2 Mg Gum) 2 mg BUCCAL Q1H PRN PRN Reason: Nicotine Cravings Last Admin: 01/05/22 19:49 Dose: 2 mg Ondansetron HCl (Ondansetron Odt 4 Mg Tab.Rapdis) 4 mg TRANSLINGU Q4H PRN PRN Reason: Nausea Pharmacy Consult (Consult Rx Perform Med Rec) 1 each MISCELLANE ONCE PRN PRN Reason: Consult order Prazosin HCl (Prazosin Hcl 5 Mg Capsule) 5 mg PO BEDTIME [facility]; Protocol Last Admin: 01/06/22 20:23 Dose: 5 mg Prazosin HCl (Prazosin Hcl 1 Mg Capsule) 2 mg PO BEDTIME [facility]; Protocol Last Admin: 01/06/22 20:23 Dose: 2 mg Spironolactone (Spironolactone 25 Mg Tablet) 50 mg PO BID@0900,1800 [facility]; Protocol Last Admin: 01/06/22 18:23 Dose: 50 mg Trazodone HCl (Trazodone Hcl 50 Mg Tablet) 50 mg PO BEDTIME PRN PRN Reason: Insomnia Allergies Allergies Allergy/AdvReac Type Severity Reaction Status Date / Time aripiprazole [From ABILIFY] Allergy Unknown UNKNOWN Verified 10/18/20 16:33 Assessment & Plan Assessment & Plan (1) Bipolar 2 disorder, major depressive episode: Status: Acute Code(s): F31.81 - Bipolar II disorder (2) Borderline personality disorder: Status: Acute Code(s): F60.3 - Borderline personality disorder (3) Opioid use disorder, moderate, dependence: Status: Acute Code(s): F11.20 - Opioid dependence, uncomplicated (4) Cocaine use disorder, moderate, dependence: Status: Acute Code(s): F14.20 - Cocaine dependence, uncomplicated Plan Li is a 31 M-to-F trans woman who self presented to [facility] reporting increase depression, SI in context of recent relapsed on opioids and cocaine and multiple psychosocial stressors including lack of housing and owing money to people she reports are dangerous and she worries about retaliation. Utox positive for opioids, cocaine, amphetamine, cannabinoids. we discussed risks, benefits and alternative treatment options. PLAN 1. Admit to M3, CV, 15 minutes checks for safety 2. restart suboxone 16mg SL daily- plan for pt to be referred to clinic to get sublocade IM 3. continue lamictal, clonidine. pt's out provider rx makenna, pt informed she will have to follow up with OP provider to contiunes RX given concerns of abuse or misuse as she continues to work on recovery. 4. aftercare planning. 01/02- continue tx. while on unit may be prescribed adderall in lie of vyvanse, however, pt understands this medication will not be rx on discharge as she will follow up with OP prescriber for rx of vyvvanse. 01/03 continue tx. 01/04 continue tx/ 01/05 continue tx. 01/06 continue tx. dc tomorrow. I spent minutes with the patient and/or on the patient floor today, greater than?50% of which was spent counseling/coordinating care. Reason for contiued inpatient stay Substantial Risk for: stable for discharge
--- NOTE | 2022-01-07 08:05 | P.DS_ITS ---
DS: Providers Provider Date of Service: 01/07/22 Date of admission: 01/01/22 12:11 Primary care physician: Unknown Physician DS: Diagnosis Discharge Diagnosis (1) Bipolar 2 disorder, major depressive episode: Status: Acute (2) Borderline personality disorder: Status: Acute (3) Opioid use disorder, moderate, dependence: Status: Acute (4) Cocaine use disorder, moderate, dependence: Status: Acute DS: Medications Discharge Medications Home Medications: Home Medications Medication Instructions Recorded Confirmed albuterol sulfate 90 mcg/actuation 1 puff inhalation Q6H PRN Wheezing 08/07/21 12/31/21 aerosol inhaler (Ventolin HFA) estradiol 2 mg tablet 2 mg PO TID 08/07/21 12/31/21 lisdexamfetamine 60 mg capsule 1 cap PO QAM 12/31/21 12/31/21 (Vyvanse) Previous Rx's Medication Instructions Recorded buprenorphine 300 mg/1.5 mL 300 mg (1.5 mL) subcut QMONTH #1.5 01/05/22 solution,exten.rel.subcutaneous mL syringe (Sublocade) gabapentin 300 mg capsule 600 mg PO TID #180 caps 01/07/22 lamotrigine 200 mg tablet 1 tab PO DAILY #30 tabs 01/07/22 prazosin 2 mg capsule 1 cap PO BEDTIME #60 caps 01/07/22 prazosin 5 mg capsule 1 cap PO BEDTIME #30 caps 01/07/22 spironolactone 50 mg tablet 1 tab PO BID #60 tabs 01/07/22 Mental Status Exam Mental Status Exam Narrative: Appearance: wearing hospital gown, fair hygiene in NAD Behavior:cooperative psychomotor: no agitation or retardation noted Speech:clear, normal rate/rhythm/volume, spontaneous Thought process:linear Thought content:no signs of psychosis, future oriented, hopeful Mood: better Affect: congruent, brighter SI:none HI:none VH/AH:none Delusions: none Insight/judgment: poor x 2. Memory/cog: alert, oriented x 3. Data Data Completed and Pending Completed studies during hospitalization [Text1]: 12/31/21 12/31/21 12/31/21 17:38 18:03 18:03 WBC RBC Hgb Hct MCV MCH MCHC RDW Plt Count MPV Immature Gran % (Auto) Neut % (Auto) Lymph % (Auto) [place] % (Auto) Eos % (Auto) Baso % (Auto) Lymph # (Auto) [place] # (Auto) Eos # (Auto) Baso # (Auto) Abs Immat Gran (auto) Absolute Neuts (auto) Absolute Nucleated RBC Nucleated RBC % (auto) Sodium Potassium Chloride Carbon Dioxide Anion Gap BUN Creatinine Estim Creat Clear Calc Estimated GFR Random Glucose Fasting Glucose Estimat Average Glucose Hemoglobin A1c % Calcium Total Bilirubin Direct Bilirubin AST ALT Alkaline Phosphatase Total Protein Albumin Triglycerides Cholesterol LDL Cholesterol, Calc HDL Cholesterol Lipase Vitamin B12 Folate TSH Urine Color Yellow Urine Appearance Clear Urine pH 6.5 Ur Specific [place] 1.010 Urine Protein Negative Urine Glucose (UA) Negative Urine Ketones Trace Urine Blood Negative Urine Nitrite Negative Ur Leukocyte Esterase Negative Urine Opiates Screen POSITIVE H Urine Fentanyl Screen POSITIVE H Ur Barbiturates Screen Not Detected Ur Phencyclidine Scrn Not Detected Ur Amphetamines Screen POSITIVE H U Benzodiazepines Scrn Not Detected Urine Cocaine Screen POSITIVE H U Marijuana (THC) Screen POSITIVE H Ethyl Alcohol COVID-19 (LOS) Negative COVID-19 Clin Com See Note 12/31/21 12/31/21 12/31/21 19:50 19:50 19:50 WBC 5.5 RBC 4.71 Hgb 13.5 L Hct 39.9 L MCV 84.7 MCH 28.7 MCHC 33.8 RDW 13.9 Plt Count 278 D MPV 10.1 Immature Gran % (Auto) 0.2 Neut % (Auto) 51.7 Lymph % (Auto) 35.8 [place] % (Auto) 8.5 Eos % (Auto) 3.3 Baso % (Auto) 0.5 Lymph # (Auto) 2.0 [place] # (Auto) 0.5 Eos # (Auto) 0.2 Baso # (Auto) 0.0 Abs Immat Gran (auto) 0.01 Absolute Neuts (auto) 2.9 Absolute Nucleated RBC 0.000 Nucleated RBC % (auto) 0.0 Sodium 142 Potassium 3.1 L D Chloride 101 Carbon Dioxide 28 Anion Gap 16 BUN 5 L Creatinine 0.62 Estim Creat Clear Calc 232.1 Estimated GFR > 60 Random Glucose 130 H Fasting Glucose Estimat Average Glucose Hemoglobin A1c % Calcium 8.9 Total Bilirubin 0.3 Direct Bilirubin 0.2 AST 29 D ALT 30 Alkaline Phosphatase 57 D Total Protein 6.1 L Albumin 3.4 L Triglycerides Cholesterol LDL Cholesterol, Calc HDL Cholesterol Lipase 15 Vitamin B12 Folate TSH Urine Color Urine Appearance Urine pH Ur Specific [place] Urine Protein Urine Glucose (UA) Urine Ketones Urine Blood Urine Nitrite Ur Leukocyte Esterase Urine Opiates Screen Urine Fentanyl Screen Ur Barbiturates Screen Ur Phencyclidine Scrn Ur Amphetamines Screen U Benzodiazepines Scrn Urine Cocaine Screen U Marijuana (THC) Screen Ethyl Alcohol < 10 COVID-19 (LOS) COVID-19 Clin Com 01/02/22 01/02/22 01/02/22 08:04 08:04 08:05 WBC RBC Hgb Hct MCV MCH MCHC RDW Plt Count MPV Immature Gran % (Auto) Neut % (Auto) Lymph % (Auto) [place] % (Auto) Eos % (Auto) Baso % (Auto) Lymph # (Auto) [place] # (Auto) Eos # (Auto) Baso # (Auto) Abs Immat Gran (auto) Absolute Neuts (auto) Absolute Nucleated RBC Nucleated RBC % (auto) Sodium 141 Potassium 3.9 D Chloride 102 Carbon Dioxide 25 Anion Gap 18 BUN 17 H D Creatinine 0.60 Estim Creat Clear Calc 239.8 Estimated GFR > 60 Random Glucose Fasting Glucose 91 Estimat Average Glucose 103 Hemoglobin A1c % 5.2 Calcium 8.5 Total Bilirubin 0.2 Direct Bilirubin AST 17 D ALT 20 Alkaline Phosphatase 58 Total Protein 5.8 L Albumin 3.2 L Triglycerides 94 Cholesterol 116 D LDL Cholesterol, Calc 64 HDL Cholesterol 34 D Lipase Vitamin B12 844 Folate 10.2 TSH 2.22 Urine Color Urine Appearance Urine pH Ur Specific [place] Urine Protein Urine Glucose (UA) Urine Ketones Urine Blood Urine Nitrite Ur Leukocyte Esterase Urine Opiates Screen Urine Fentanyl Screen Ur Barbiturates Screen Ur Phencyclidine Scrn Ur Amphetamines Screen U Benzodiazepines Scrn Urine Cocaine Screen U Marijuana (THC) Screen Ethyl Alcohol COVID-19 (LOS) COVID-19 Clin Com DS: Summary Hospital Course Hospital Course: Subjective Notes: Tolbert Warning and Conditional Voluntary Narrative: Jaelyn is a [id number] trans woman with self presented to [facility] ED reporting increase depression, suicidal ideation. She reports she was in residential substance use treatment program for almost one year. She reports she relapsed about one month ago. She reports she owes money to dangerous people. Pt reports feeling overwhelmed, anxious, very depressed, hopeless. Utox in ED is positive for opioids, cocaine, amphetamines, cannabinoids. On the unit, Li continues to endorse depressed mood, feeling hopeless. She reports feeling very overwhelmed about financial situation, lack of housing. She is very overwhelmed about the fact that she owes money to people who can potentially hurt her. She presents as dysphoric. At this moment, she reports she does not know if she wants to be referred to substance use treatment or be referred to program. She reports she wants to be back on sublocade, restart suboxone here and connect her to clinic for [facility]. She denies VH/AH. She reports poor sleep. Past Psychiatric History: Inpatient: 6 previous inpatient admissions. Most recent one at [facility] Jan 2020, [facility] 04/2020 ? OP: none currently.? HOSPITAL COURSE On the unit, Mahendra was admitted on a CV and placed on 15 minutes checks for safety. She reported feeling depressed, guilt and shame related to recent relapsed on substances. She reported wanted to be back on sublocade for opioid use disorder. She declined referral for residential substance use disorder. After reviewing risks, benefits and alternative treatment options, she agreed to continue combination of lamictal and prazosin. Her affect gradually presented as brighter, less labile. She reported less depressed mood, increasingly more future oriented. No SI/HI. She was discharged to [facility] clinic to continue sublocade. She declined referrals to dual residential treatment program. There were no incidences of disruptive behaviors nor use of restraints. Status at Discharge Cognitive/behavioral status at discharge: Pt with brigther, non labile affect. No SI/HI. No AH/VH. No overt delusional content noted or reported. Harm reduction- given narcan on discharge. No signs of aggression towards self or others. Functional status at discharge: independent ambulation Overall status at discharge: patient is progressing back to baseline Time Spent with Patient Time attestation: Total time spent providing and/or coordinating discharge services: Discharge Plan Discharge Anticipated Discharge Date/Time: 01/07/22 07:56 Patient Disposition: Home Health Service Discharge Diagnosis: BD BPD Cocaine use OPioid Use disorder Referrals: [facility] [Other] - 01/07/22 9:00 am Physician,Unknown J [Primary Care Provider] - 1 Week Discharge Medications: New gabapentin 300 mg Capsule 600 mg PO TID Qty: 180 0RF Continued albuterol sulfate [Ventolin HFA] 90 mcg/actuation HFA aerosol inhaler 1 puff inhalation Q6H PRN (Reason: Wheezing) estradiol 2 mg Tablet 2 mg PO TID Vyvanse 60 mg capsule 1 cap PO QAM lamotrigine 200 mg tablet 1 tab PO DAILY Qty: 30 0RF prazosin 5 mg capsule 1 cap PO BEDTIME Qty: 30 0RF prazosin 2 mg capsule 1 cap PO BEDTIME Qty: 60 0RF spironolactone 50 mg tablet 1 tab PO BID Qty: 60 0RF Discontinued lamotrigine 100 mg tablet 200 mg PO DAILY clonidine HCl 0.1 mg tablet 1 tab PO BID gabapentin 300 mg capsule 1 cap PO TID No Action aloe vera Gel 1 appl topical 6XD 7 Days Qty: 170 0RF naproxen 500 mg tablet 500 mg PO BID PRN (Reason: pain) 10 Days Qty: 20 0RF Sublocade 300 mg/1.5 mL solution, extended rel syringe 300 mg subcut QMONTH Qty: 1.5 1RF buprenorphine-naloxone [Suboxone] 12-3 mg film 1 film sublingual BID Qty: 28 0RF Rx Instructions: VIDALEALucia:[id number] Discharge Orders: Discharge Order (Routine); Ordered 01/07/22 Ordered By: Page Fay Diet: Regular diet Activity on Discharge: As tolerated Stand Alone Forms: Patient Portal Discharge page, Community Support Care Plan Goals: 1. Maintain mood 2. No SI/HI HARM REDUCTION- NArcan given on discharge Health Concerns: Follow up with PCP Plan of Treatment: 1. Take meds as prescribed. 2. Go to nearest ED or call 911 in event of emergency Assessment: Pt with brighter, non labile. No SI/HI. No signs of psychosis. Future oriented. No signs of aggression towards self or others. HArm reduction discussed at lengths given narcan on discharge. Discharge Date/Time: 01/07/22 09:09
[2022-01-07] MEDS: Naloxone HCl Nasal TAKE HOME 4 MG SPRAY NOSTRILALT (08:19)
[2022-01-07] MEDS: lamoTRIgine 100 MG TABLET 200 MG PO (08:19)
[2022-01-07] MEDS: Nicotine 21 MG PATCH.TD24 TRANSDERMA (08:19)
[2022-01-07] MEDS: Spironolactone 25 MG TABLET 50 MG PO (08:20)
[2022-01-07] MEDS: LORazepam 1 MG TABLET PO (08:20)
[2022-01-07] MEDS: estradioL 0.5 MG TABLET 2 MG PO (08:20)
[2022-01-07] MEDS: Buprenorphine/Naloxone 8/2 mg FILM 2 FILM SUBLINGUAL (08:20)
[2022-01-07] MEDS: Acetaminophen 325 MG TABLET 650 MG PO (08:20)
[2022-01-07] MEDS: Dextroamphetamine/Amphetamine XR 10 MG CAP.ER.24H 20 MG PO (08:20)
[2022-01-07] MEDS: Gabapentin 300 MG CAPSULE 600 MG PO (08:21)
== END 2022-01-07 09:09 | disposition home health service (06) | DRG 753 ==
LOC: HO.ED 01-01 01:04 → HO.PADLT16 01-01 12:17
PROVIDERS: Admitting Provider Psychiatry & Neurology Psychiatry; Emergency Provider Emergency Medicine; Visit Provider Social Worker
DX: F31.81 Bipolar II disorder (principal); R45.851 Suicidal ideations; F11.20 Opioid dependence, uncomplicated; F64.0 Transsexualism; F43.10 Post-traumatic stress disorder, unspecified; F14.20 Cocaine dependence, uncomplicated; F90.9 Attention-deficit hyperactivity disorder, unspecified type; F17.210 Nicotine dependence, cigarettes, uncomplicated; Z20.822 Contact with and (suspected) exposure to COVID-19; Z59.02 Unsheltered homelessness; Z71.6 Tobacco abuse counseling; Z79.899 Other long term (current) drug therapy
CPT/HCPCS: 36415; 80053; 80061; 80307; 81003; 82077; 82248; 82607; 82746; 83036; 83690; 84443; 85025; 87635; 93005; 99285

== ENCOUNTER → 2022-01-07 09:09 | Outpatient (BNVA) | payer MEDICAID, SELFPAY | PROVIDERS: Visit Provider Nurse Practitioner Psychiatric/Mental Health | DX: F11.20 Opioid dependence, uncomplicated (principal) | CPT/HCPCS: 99212 ==

== ENCOUNTER → 2022-01-21 11:15 | Outpatient (BNVA) | payer MEDICAID, SELFPAY | PROVIDERS: Visit Provider Nurse Practitioner Psychiatric/Mental Health | DX: Z51.81 Encounter for therapeutic drug level monitoring (principal); F11.20 Opioid dependence, uncomplicated | CPT/HCPCS: 99212 ==

== ENCOUNTER 2022-01-24 17:46 | Emergency (ER) | payer MEDICAID, SELFPAY ==
[2022-01-24 18:08] VITALS: BP 107/71; PULSE 95; RESP 16; TEMP 36.7; O2SAT 95; BMI 44.3
[2022-01-24 19:18] VITALS: BP 124/77; PULSE 76; RESP 16; TEMP 36.4; O2SAT 98
--- NOTE | 2022-01-24 19:19 | PC.NURSE ---
patient a&ox3, c/o bilateral hand pain/burning 06/14, vss, pt awaiting provider and requesting food- pt was asked to wait until provider has seen them, will continue to monitor.
--- NOTE | 2022-01-24 20:12 | ED.GENADULT ---
HPI - General Adult General Chief complaint: General Medical Stated complaint: freezing, hypothermia? Time Seen by Provider: 01/24/22 19:46 Source: patient Mode of arrival: ambulatory Limitations: no limitations History of Present Illness HPI narrative: 31-year-old transgender female brought to the ED for frostbite of her hands. Patient states yesterday she was on the street and was very cold. Patient states she was homeless and hand started turning red painful. Patient denies any trauma to the hands or IV drug use. Related Data Home Medications Medication Instructions Recorded Confirmed albuterol sulfate 90 mcg/actuation 1 puff inhalation Q6H PRN Wheezing 08/07/21 12/31/21 aerosol inhaler (Ventolin HFA) estradiol 2 mg tablet 2 mg PO TID 08/07/21 12/31/21 lisdexamfetamine 60 mg capsule 1 cap PO QAM 12/31/21 12/31/21 (Vyvanse) Previous Rx's Medication Instructions Recorded buprenorphine 300 mg/1.5 mL 300 mg (1.5 mL) subcut QMONTH #1.5 01/07/22 solution,exten.rel.subcutaneous mL syringe (Sublocade) gabapentin 300 mg capsule 600 mg PO TID #180 caps 01/07/22 lamotrigine 200 mg tablet 1 tab PO DAILY #30 tabs 01/07/22 prazosin 2 mg capsule 1 cap PO BEDTIME #60 caps 01/07/22 prazosin 5 mg capsule 1 cap PO BEDTIME #30 caps 01/07/22 spironolactone 50 mg tablet 1 tab PO BID #60 tabs 01/07/22 buprenorphine 12 mg-naloxone 3 mg 1 film sublingual BID #28 ea 01/21/22 sublingual film (Suboxone) aloe vera 1 appl topical 6XD 7 days #170 01/24/22 grams naproxen 500 mg tablet 500 mg PO BID PRN pain 10 days #20 01/24/22 tabs Allergies Allergy/AdvReac Type Severity Reaction Status Date / Time aripiprazole [From ABILIFY] Allergy Unknown UNKNOWN Verified 01/24/22 18:08 Review of Systems Review of Systems: Homeless. Outside all night in the cold. From bites of hands. Patient had no gloves. Negative for any free complaint Yes all other systems are reviewed and are negative PMFSH Past Medical History Medical History Abscess of left upper extremity ADHD Anxiety Asthma Borderline personality disorder Cocaine substance abuse Depression HTN (hypertension) IBS (irritable bowel syndrome) Opiate misuse Opioid use disorder, severe, dependence Perianal cyst PTSD (post-traumatic stress disorder) PTSD (post-traumatic stress disorder) Tibial torsion, bilateral Social History Social History Household Members: None Housing: Homeless Housing Other:: [place] [facility] Do you presently have visiting nurse or other home services: No Alcohol intake: never Patient Tobacco Use Status: Current everyday Tobacco user Tobacco use type: Cigarette Cigarette Packs Per Day: 1 Cigarettes Per Day: 20.0 Years Smoked: 20 e-Cigarette/Vaping Use: Never Used Second Hand Smoke Exposure: No Substance Use Type: Heroin and Marijuana Advance Directives: No Advance Directives Information Provided: Yes service: No Current occupational status: unemployed Sexual orientation: attracted to men Physical Exam ED Vital Signs: Vital Signs - 24 hr 01/24/22 18:08 01/24/22 19:18 Temperature 98.1 F 97.6 F Pulse Rate 95 76 Respiratory Rate 16 16 Blood Pressure 107/71 124/77 Pulse Oximetry 95 98 Oxygen Delivery Method Room Air Room Air BMI result Body Mass Index 44.3 Const General: cooperative, healthy appearing, comfortable, no acute distress, well developed, alert and awake Orientation/consciousness: oriented to time and patient oriented x3 HENMT Head: Yes normal to inspection, Yes No palpable skull fracture present, Yes normocephalic, Yes atraumatic and No abrasion Eyes General: appearance normal, both eyes and all related structures Neck Neck: Yes normal visual inspection, Yes full ROM, Yes no lymphadenopathy, Yes no meningeal signs, Yes trachea midline, Yes supple, No anterior neck swelling and No tender Chest Chest palpation & inspection: normal inspection of the chest and normal palpation of entire chest wall Resp Effort & Inspection: normal respiratory effort and able to speak in complete sentences Auscultation: clear to auscultation bilaterally Cardio Jugular venous distension: no JVD Heart sounds: S1 normal heart sound present and S2 normal heart sound present GI Inspection: Yes normal to inspection and No abdominal wall ecchymosis Palpation (GI): Soft to palpation, not firm, nontender, no guarding and not rigid General: No CVA tenderness and Yes no CVA tenderness Back/Spine/Pelvis Back: no CVA tenderness, No CVA tenderness and No back tenderness Skin General skin exam: no rashes or lesions noted and elasticity normal Neuro General: oriented to time, patient oriented x3, gait normal, no meningeal signs and CN's II-XI intact bilaterally Cranial nerves: Yes CN's II-XII intact bilaterally Extrem Hand/finger images: 1. Tips fingers indicate 1st stage of frostbite. Erythematous. Negative for blackness. No fluctuant mass or pus discharge. Neuro/motor/vascular exam intact 2. Tips fingers indicate 1st stage of frostbite. Erythematous. Negative for blackness. No fluctuant mass or pus discharge. Neuro/motor/vascular exam intact Psych Appearance: grossly normal, well kempt and not disheveled Course Course Course Narrative: Nurse will put warm water on hands. place bacitracin and placed dressing. Tdap ordered Reevaluation(s) Reevaluation #1: Patient will be discharged [facility]dirah[facility] place on frostbite. Patient evaluated by care team for resources for prison and also for Lyft to friend's house. Time: 20:42 Medications Administered Discontinued Medications Generic Name Dose Route Start Last Admin Trade Name Freq PRN Reason Stop Dose Admin Diphtheria/Tetanus/Acell Pertussis 0.5 ml 01/24/22 20:49 01/24/22 21:02 Diphth,Pertus(Acell),Tet Adult 0.5 Ml Syringe IM 01/24/22 20:50 0.5 ml .ONCE ONE Administration Medical Decision Making [facility] Narrative Medical decision making narrative: Ghassan bites Discharge Plan Discharge Clinical Impression: Frostbite of both hands Patient Disposition: Home, Self-Care Instructions: Frostbite (ED) Additional Instructions: You will be discharged with topical aloe for frostbite and pain medication. You were given resources for shelters for you not to be homeless and prevent further frostbite. Return to the ED immediately if fingertips become black, swelling, redness, bluish discoloration, numbness, or any other concerning symptoms Prescriptions: New aloe vera Gel 1 appl topical 6XD 7 Days Qty: 170 0RF naproxen 500 mg tablet 500 mg PO BID PRN (Reason: pain) 10 Days Qty: 20 0RF No Action albuterol sulfate [Ventolin HFA] 90 mcg/actuation HFA aerosol inhaler 1 puff inhalation Q6H PRN (Reason: Wheezing) estradiol 2 mg Tablet 2 mg PO TID Vyvanse 60 mg capsule 1 cap PO QAM gabapentin 300 mg Capsule 600 mg PO TID Qty: 180 0RF lamotrigine 200 mg tablet 1 tab PO DAILY Qty: 30 0RF prazosin 5 mg capsule 1 cap PO BEDTIME Qty: 30 0RF prazosin 2 mg capsule 1 cap PO BEDTIME Qty: 60 0RF spironolactone 50 mg tablet 1 tab PO BID Qty: 60 0RF Sublocade 300 mg/1.5 mL solution, extended rel syringe 300 mg subcut QMONTH Qty: 1.5 1RF buprenorphine-naloxone [Suboxone] 12-3 mg film 1 film sublingual BID Qty: 28 0RF Rx Instructions: NADEAN:[id number] Referrals: [facility] Wound Care Management [Provider Group] (Hand frostbite) Interventions: ED Discharge Assessment Last Done: 01/24/22 21:19 Discharge Date/Time: 01/24/22 21:21 Print Language: Sami
--- NOTE | 2022-01-24 20:41 | MHC.CARE ---
CARE team consulted received for 31 year old trans female (she/her/hers) who presented to the ED with complaints of frostbite on her hands secondary to homelessness and freezing temperatures. Pt requested to speak with a social director for support and resources. This publicity writer met with the pt in [facility] room 3. She startled easily when this publicity writer entered the room but engaged easily in conversation. She was alert and oriented, hygiene and grooming were poor, eye contact was avoidant, speech was clear with even tone, mood was dysthymic with congruent affect. She denied SI/HI/AVH and did not demonstrate any symptoms of psychosis. She expressed that she has been staying with a friend in [place], and while this friend is overall supportive they do have a negative impact on her sobriety. She reported that she has been taking her medications and continues to meet with her outpatient providers. She requested information about food pantries and soup robert in the [place] area. This publicity writer provided pt with information for [employer] and [employer]. CARE team will assist pt with getting to her friend's house via lyft. ED provider updated re: consult.
[2022-01-24] MEDS: Diphth,Pertus(ACell),Tet Adult 0.5 ML SYRINGE IM (21:02)
== END 2022-01-24 21:21 | disposition home or self-care (01) ==
PROVIDERS: Emergency Provider Internal Medicine
DX: T33.521A Superficial frostbite of right hand, initial encounter (principal); T33.522A Superficial frostbite of left hand, initial encounter; T69.9XXA Effect of reduced temperature, unspecified, initial encounter; X31.XXXA Exposure to excessive natural cold, initial encounter; Y93.9 Activity, unspecified; Y92.9 Unspecified place or not applicable; Y99.9 Unspecified external cause status; Z79.899 Other long term (current) drug therapy; F17.210 Nicotine dependence, cigarettes, uncomplicated; Z71.6 Tobacco abuse counseling
CPT/HCPCS: 90471; 90715; 99283; 99284

== ENCOUNTER → 2022-01-27 13:05 | Outpatient (BNVA) | payer MEDICAID, SELFPAY | PROVIDERS: Visit Provider Nurse Practitioner Psychiatric/Mental Health | DX: Z51.81 Encounter for therapeutic drug level monitoring (principal); F11.20 Opioid dependence, uncomplicated; F14.20 Cocaine dependence, uncomplicated | CPT/HCPCS: 80305; 99212 ==

== ENCOUNTER → 2022-02-08 15:55 | Outpatient (BNVA) | payer MEDICAID, SELFPAY | PROVIDERS: Visit Provider Nurse Practitioner Psychiatric/Mental Health | DX: F11.20 Opioid dependence, uncomplicated (principal) | CPT/HCPCS: 80305; 96372; 99212 ==

== ENCOUNTER 2022-03-21 00:28 | Emergency (ER) | payer MEDICAID, SELFPAY ==
[2022-03-21 00:33] VITALS: BP 158/85; PULSE 91; RESP 20; TEMP 36.4; O2SAT 97; BMI 38.7
--- NOTE | 2022-03-21 00:35 | MHC.EDTECH ---
patient came in via [facility] ,myself and kristal Woodward in room ,vitals sign taken ,md Dumont saw patient and said to give patient food ,patient had 2 sun butter and jelly sandwich ,coffee and milk for snack .
[2022-03-21 00:42] VITALS: BP 158/85; PULSE 99; RESP 20; TEMP 36.4; O2SAT 96
--- NOTE | 2022-03-21 00:56 | ED.GENADULT ---
HPI - General Adult General Chief complaint: Anxiety Stated complaint: cold in distraught Time Seen by Provider: 03/21/22 00:47 Source: patient Mode of arrival: EMS History of Present Illness HPI narrative: Patient comes as cold outside anxious asking for the foot no other medical complaints Related Data Home Medications Medication Instructions Recorded Confirmed albuterol sulfate 90 mcg/actuation 1 puff inhalation Q6H PRN Wheezing 08/07/21 12/31/21 aerosol inhaler (Ventolin HFA) estradiol 2 mg tablet 2 mg PO TID 08/07/21 12/31/21 lisdexamfetamine 60 mg capsule 1 cap PO QAM 12/31/21 12/31/21 (Vyvanse) Previous Rx's Medication Instructions Recorded buprenorphine 300 mg/1.5 mL 300 mg (1.5 mL) subcut QMONTH #1.5 01/07/22 solution,exten.rel.subcutaneous mL syringe (Sublocade) gabapentin 300 mg capsule 600 mg PO TID #180 caps 01/07/22 lamotrigine 200 mg tablet 1 tab PO DAILY #30 tabs 01/07/22 prazosin 2 mg capsule 1 cap PO BEDTIME #60 caps 01/07/22 prazosin 5 mg capsule 1 cap PO BEDTIME #30 caps 01/07/22 spironolactone 50 mg tablet 1 tab PO BID #60 tabs 01/07/22 buprenorphine 12 mg-naloxone 3 mg 1 film sublingual BID #28 ea 01/21/22 sublingual film (Suboxone) aloe vera 1 appl topical 6XD 7 days #170 01/24/22 grams naproxen 500 mg tablet 500 mg PO BID PRN pain 10 days #20 01/24/22 tabs buprenorphine 100 mg/0.5 mL 100 mg (0.5 mL) subcut .monthly 03/11/22 solution,exten.rel.subcutaneous #0.5 mL syringe (Sublocade) Allergies Allergy/AdvReac Type Severity Reaction Status Date / Time aripiprazole [From ABILIFY] Allergy Unknown UNKNOWN Verified 02/08/22 16:09 Review of Systems Review of Systems: Yes all other systems are reviewed and are negative PMFSH Past Medical History Medical History Abscess of left upper extremity ADHD Anxiety Asthma Borderline personality disorder Cocaine substance abuse Depression HTN (hypertension) IBS (irritable bowel syndrome) Opiate misuse Opioid use disorder, severe, dependence Perianal cyst PTSD (post-traumatic stress disorder) PTSD (post-traumatic stress disorder) Tibial torsion, bilateral Social History Social History Household Members: None Housing: Homeless Housing Other:: [place] [facility] Do you presently have visiting nurse or other home services: No Alcohol intake: never Patient Tobacco Use Status: Current everyday Tobacco user Tobacco use type: Cigarette Cigarette Packs Per Day: 1 Cigarettes Per Day: 20.0 Years Smoked: 20 Smoked in Last 30 Days: Yes e-Cigarette/Vaping Use: Never Used Second Hand Smoke Exposure: No Use of substances other than those prescribed or required for medical reasons: Yes Substance Use Type: Marijuana Advance Directives: No Advance Directives Information Provided: No service: No Current occupational status: unemployed Sexual orientation: attracted to men Physical Exam ED Vital Signs: Vital Signs - 24 hr 03/21/22 00:33 03/21/22 00:42 Temperature 97.6 F 97.6 F Pulse Rate 91 99 Respiratory Rate 20 20 Blood Pressure 158/85 H 158/85 H Pulse Oximetry 97 96 Oxygen Delivery Method Room Air Room Air BMI result Body Mass Index 38.7 Appearance: Alert. Oriented X3. No acute distress. Eyes: PERRLA, No Nystagmus ENT: Pharynx normal. Oral Mucosa moist Neck: Normal inspection. Neck supple. CVS: Normal heart rate and rhythm. Pulses normal. Respiratory: No respiratory distress. Equal air entry bilateral, no wheezing/rales/rhonchi Abdomen: Soft and nontender. Bowel sounds are present, no mass palpable, no CVA tenderness Skin: Skin warm and dry. Normal skin color. Normal skin turgor. Extremities: No lower extremity edema. No calf tenderness Neuro: Oriented X 3. No motor deficit. No sensory deficit.No cerebellar signs , cranial nerves II-XII intact Medical Decision Making Medical Decision Making MDM Narrative: Patient came to ER for nonmedical reasons had food in the ER will discharge patient home Discharge Plan Discharge Clinical Impression: Acute anxiety Patient Disposition: Home, Self-Care Instructions: Anxiety (ED) Additional Instructions: Take your medication follow with PCP Prescriptions: No Action Sublocade 100 mg/0.5 mL solution, extended rel syringe 100 mg subcut .monthly Qty: 0.5 5RF albuterol sulfate [Ventolin HFA] 90 mcg/actuation HFA aerosol inhaler 1 puff inhalation Q6H PRN (Reason: Wheezing) estradiol 2 mg Tablet 2 mg PO TID Vyvanse 60 mg capsule 1 cap PO QAM gabapentin 300 mg Capsule 600 mg PO TID Qty: 180 0RF lamotrigine 200 mg tablet 1 tab PO DAILY Qty: 30 0RF prazosin 5 mg capsule 1 cap PO BEDTIME Qty: 30 0RF prazosin 2 mg capsule 1 cap PO BEDTIME Qty: 60 0RF spironolactone 50 mg tablet 1 tab PO BID Qty: 60 0RF aloe vera Gel 1 appl topical 6XD 7 Days Qty: 170 0RF naproxen 500 mg tablet 500 mg PO BID PRN (Reason: pain) 10 Days Qty: 20 0RF Sublocade 300 mg/1.5 mL solution, extended rel syringe 300 mg subcut QMONTH Qty: 1.5 1RF buprenorphine-naloxone [Suboxone] 12-3 mg film 1 film sublingual BID Qty: 28 0RF Rx Instructions: CHACHO:[id number] Interventions: ED Discharge Assessment Last Done: 03/21/22 01:11 Discharge Date/Time: 03/21/22 01:13
== END 2022-03-21 01:13 | disposition home or self-care (01) ==
LOC: HO.ED 01:05
PROVIDERS: Emergency Provider Internal Medicine
DX: F41.1 Generalized anxiety disorder (principal); F43.0 Acute stress reaction; Z79.899 Other long term (current) drug therapy; F17.210 Nicotine dependence, cigarettes, uncomplicated; Z71.6 Tobacco abuse counseling
CPT/HCPCS: 99284

== ENCOUNTER 2022-03-21 07:27 | Inpatient (IN) | payer OTHER, MEDICAID, SELFPAY ==
[2022-03-21 07:31] VITALS: BMI 24.3
[2022-03-21 08:13] LABS: COVID-19 Test Negative (Negative); IDNOW Serial# 16C4AD1C
--- NOTE | 2022-03-21 08:27 | ED.PSYCH ---
HPI - Psych General Chief Complaint: Psychiatric Symptoms Stated Complaint: crisis Time Seen by Provider: 03/21/22 07:58 Source: patient Mode of arrival: ambulatory Limitations: no limitations History of Present Illness HPI Narrative: This is a 31-year-old male who identifies as female with a past medical history of anxiety, depression, opiate use disorder, PTSD who presents with complaints of suicidal thoughts with no plan. No homicidal ideations, hallucinations. Patient reports has been on Suboxone and last dose was Tuesday morning. Did use half a bag of heroin yesterday IV. Patient denies no additional substance use. Patient with no physical complaints. Patient reports currently homeless. Related Data Home Medications Medication Instructions Recorded Confirmed albuterol sulfate 90 mcg/actuation 1 puff inhalation Q6H PRN Wheezing 08/07/21 03/21/22 aerosol inhaler (Ventolin HFA) estradiol 2 mg tablet 2 mg PO TID 08/07/21 03/21/22 lisdexamfetamine 60 mg capsule 1 cap PO QAM 12/31/21 03/21/22 (Vyvanse) clonidine HCl 0.1 mg tablet 1 tab PO BID 03/21/22 03/21/22 escitalopram oxalate 10 mg tablet 1 tab PO DAILY 03/21/22 03/21/22 lorazepam 1 mg tablet 1 tab PO QID PRN Anxiety 03/21/22 03/21/22 prazosin 2 mg capsule 1 cap PO BEDTIME 03/21/22 03/21/22 Previous Rx's Medication Instructions Recorded lamotrigine 200 mg tablet 1 tab PO DAILY #30 tabs 01/07/22 prazosin 5 mg capsule 1 cap PO BEDTIME #30 caps 01/07/22 spironolactone 50 mg tablet 1 tab PO BID #60 tabs 01/07/22 buprenorphine 12 mg-naloxone 3 mg 1 film sublingual BID #28 ea 01/21/22 sublingual film (Suboxone) Allergies Allergy/AdvReac Type Severity Reaction Status Date / Time aripiprazole [From ABILIFY] Allergy Unknown UNKNOWN Verified 02/08/22 16:09 Review of Systems Review of Systems: Yes all other systems are reviewed and are negative Constitutional: Constitutional: Reports no additional constitutional complaints, Denies body ache(s), Denies chills, Denies fever(s), Denies headache(s) and Denies weakness Eyes: Eyes: Reports no additional eye complaints and Denies change in vision ENT: Reports system reviewed and no additional complaints, except as documented, Denies dizziness, Denies headache(s), Denies nasal congestion, Denies nasal discharge and Denies neck pain Cardiovascular: Cardiovascular: Reports no additional cardiovascular complaints, Denies chest pain, Denies leg edema and Denies dyspnea Respiratory: Respiratory: Reports no additional respiratory complaints, Denies cough and Denies dyspnea Gastrointestinal: Gastrointestinal: Reports no additional gastrointestinal complaints, Denies abdominal pain, Denies diarrhea, Denies nausea and Denies vomiting Genitourinary: Genitourinary: Denies urinary incontinence Musculoskeletal: Musculoskeletal: Reports no additional musculoskeletal complaints, Denies back pain, Denies arthralgias, Denies joint swelling, Denies neck pain, Denies numbness and Denies tingling Integumentary/Breasts: Skin/Breast: Reports system reviewed and no additional complaints, except as docu and Denies rash Neurologic: Reports system reviewed and no additional complaints, except as documented, Denies Abnormal speech present, Denies dizziness, Denies headache(s), Denies numbness, Denies tingling and Denies weakness Psychiatric: Psychiatric: Denies anxiety, Reports depression, Denies visual hallucinations, Denies hallucinations, Denies homicidal ideation and Reports suicidal ideation FORMERLY [facility], [facility] Past Medical History Attestation statement: The following information was validated with the patient. Source: old records reviewed and nursing notes reviewed Medical History Abscess of left upper extremity ADHD Anxiety Asthma Borderline personality disorder Cocaine substance abuse Depression HTN (hypertension) IBS (irritable bowel syndrome) Opiate misuse Opioid use disorder, severe, dependence Perianal cyst PTSD (post-traumatic stress disorder) PTSD (post-traumatic stress disorder) Tibial torsion, bilateral Social History Social History Household Members: None Housing: Homeless Housing Other:: [place] [facility] Do you presently have visiting nurse or other home services: No Alcohol intake: never Patient Tobacco Use Status: Current everyday Tobacco user Tobacco use type: Cigarette Cigarette Packs Per Day: 1 Cigarettes Per Day: 20.0 Years Smoked: 20 Smoked in Last 30 Days: Yes e-Cigarette/Vaping Use: Never Used Second Hand Smoke Exposure: No Use of substances other than those prescribed or required for medical reasons: Yes Substance Use Type: Crack/Cocaine and Heroin Substance Use Frequency: Chronic Longstanding Last Used Substance: Days (ago) Any prior treatment program specific to substance use: Yes Advance Directives: No Suicidal Behavior: Pre-occupation with Current/Past Psychiatric Disorders: Chronic mental illess, PTSD and Substance abuse [place] Symptoms: Hopelessness and Worthlessness Access to Firearms: No service: No Current occupational status: unemployed Sexual orientation: attracted to men Physical Exam Vital Signs: Vital Signs: Last Vital Signs Pulse 84 03/21/22 10:02 BP 119/55 L 03/21/22 10:02 Pulse Ox 97 03/21/22 10:02 O2 Del Method 03/21/22 10:02 BMI result Body Mass Index 24.3 Const: General: cooperative, healthy appearing, comfortable and no acute distress Orientation/consciousness: patient oriented x3 Limitations: no limitations HEENT: Head: Yes normal to inspection Ears: hearing grossly normal bilaterally General nose exam: Normal external nose present Face and sinus: Yes normal facial exam Mouth: Normal oral and palatal mucosa present Throat: Yes posterior oropharynx normal Eyes: General: appearance normal, both eyes and all related structures Pupils: Equal, round and reactive pupils present Neck: Neck: Yes normal visual inspection Chest: Chest palpation & inspection: normal inspection of the chest Resp: Effort & Inspection: normal respiratory effort Auscultation: clear to auscultation bilaterally Cardio: Rate: regular rate Rhythm: regular rhythm Peripheral pulses: Peripheral pulses 2+ throughout GI: Inspection: Yes normal to inspection Palpation (GI): Soft to palpation and nontender Auscultation: normal bowel sounds Back/Spine/Pelvis: Thoracic/Lumbar Spine: thoracic and lumbar spine normal to inspection Skin: General skin exam: no rashes or lesions noted Neuro: General: patient oriented x3, no focal motor deficits and normal sensation to monofilament Cranial nerves: Yes Equal, round and reactive pupils present Cognition (Neuro): normal cognition Speech: No Abnormal speech present Gait exam (Neuro): Normal gait present Motor exam (neuro): 5/5 motor strength present throughout Extrem: General: Yes normal to inspection Course Course Course Narrative: 1530-patient was seen by care team. Plan for E SP follow-up in the morning. Patient be placed in physician observation pending disposition Medications Administered Generic Name Dose Route Start Last Admin Trade Name Freq PRN Reason Stop Dose Admin Buprenorphine/Naloxone 1 film 03/21/22 09:00 03/21/22 09:54 Buprenorphine/Naloxone 12/3 Mg Film SUBLINGUAL 1 film BID ANGELES Administration Clonidine HCl 0.1 mg 03/21/22 09:00 03/21/22 09:53 Clonidine Hcl 0.1 Mg Tablet PO 0.1 mg BID ANGELES Administration Protocol Escitalopram Oxalate 10 mg 03/21/22 09:00 03/21/22 09:53 Escitalopram Oxalate 10 Mg Tablet PO 10 mg DAILY ANGELES Administration Estradiol 2 mg 03/21/22 09:00 03/21/22 14:52 Estradiol 0.5 Mg Tablet PO 2 mg TID ANGELES Administration Lamotrigine 200 mg 03/21/22 09:00 03/21/22 09:53 Lamotrigine 100 Mg Tablet PO 200 mg DAILY ANGELES Administration Spironolactone 50 mg 03/21/22 09:00 03/21/22 09:53 Spironolactone 25 Mg Tablet PO 50 mg BID ANGELES Administration Protocol Discontinued Medications Generic Name Dose Route Start Last Admin Trade Name Virgie SMITHN Reason Stop Dose Admin Ibuprofen 600 mg 03/21/22 09:13 03/21/22 09:53 Ibuprofen 600 Mg Tablet PO 03/21/22 09:14 600 mg ONCE ONE Administration Medical Decision Making Medical Decision Making [facility] Narrative: 31-year-old patient here with suicidal thoughts with no plan No concern for acute ingestion or trauma No physical complaints Will obtain labs, drug screen, COVID screen, crisis consultation Differential Diagnosis Differential Diagnoses: The differential diagnosis associated with the presentation includes Depression, homelessness Lab Data [facility] Lab Attestation statement: I reviewed the patient's lab results. 03/21/22 08:42 03/21/22 13:35 Labs: Lab Results 03/21/22 03/21/22 03/21/22 Range/Units 07:52 08:42 13:35 WBC 6.4 (4.8-10.8) X10*3/uL RBC 4.70 (4.60-5.80) X10*6/uL Hgb 13.2 L (14.0-18.0) g/dl Hct 40.1 L (42.0-52.0) % MCV 85.3 (80.0-98.0) fL MCH 28.1 (27.0-33.0) pg MCHC 32.9 (31.0-36.0) g/dl RDW 14.5 (11.0-16.0) % Plt Count 223 (160-400) X10*3/uL MPV 9.9 (9.4-12.4) fL Immature Gran % (Auto) 0.3 (0.0-0.4) % Neut % (Auto) 62.7 (45-73) % Lymph % (Auto) 26.6 (20-40) % [place] % (Auto) 7.0 (2-11) % Eos % (Auto) 2.8 (0-4) % Baso % (Auto) 0.6 (0-2) % Lymph # (Auto) 1.7 (1.2-4.9) X10*3/uL [place]er # (Auto) 0.5 (0.1-1.2) X10*3/uL Eos # (Auto) 0.2 (0.0-0.4) X10*3/uL Baso # (Auto) 0.0 (0.0-0.2) X10*3/uL Abs Immat Gran (auto) 0.02 (0.00-0.03) X10*3/uL Absolute Neuts (auto) 4.0 (2.0-8.3) x10*3/uL Absolute Nucleated RBC 0.000 (0.0-0.012) X10*3/uL Nucleated RBC % (auto) 0.0 (0.0-0.2) /100WBC Sodium 140 (135-145) mmol/L Potassium 4.4 (3.3-5.1) mmol/L Chloride 106 (96-108) mmol/L Carbon Dioxide 26 (22-29) mmol/L Anion Gap 12 (12-20) BUN 22 H (9-16) mg/dL Creatinine 0.65 (0.5-1.4) mg/dL Estim Creat Clear Calc 156.3 Estimated GFR > 60 Random Glucose 101 (60-115) mg/dL Calcium 9.0 (8.4-10.2) mg/dL Total Bilirubin 0.5 (0.0-1.0) mg/dL Direct Bilirubin 0.2 (0.0-0.5) mg/dL AST 30 (5-37) U/L ALT 23 (0-40) U/L Alkaline Phosphatase 60 (39-117) U/L Total Protein 6.3 L (6.5-8.0) g/dL Albumin 3.8 (3.5-5.0) g/dL Salicylates < 5.0 L (15-30) mg/dL Acetaminophen < 17 (<30) mcg/mL Ethyl Alcohol mg/dL COVID-19 (LOS) Negative (Negative) COVID-19 Clin Com See Note 03/21/22 Range/Units 13:35 WBC (4.8-10.8) X10*3/uL RBC (4.60-5.80) X10*6/uL Hgb (14.0-18.0) g/dl Hct (42.0-52.0) % MCV (80.0-98.0) fL MCH (27.0-33.0) pg MCHC (31.0-36.0) g/dl RDW (11.0-16.0) % Plt Count (160-400) X10*3/uL MPV (9.4-12.4) fL Immature Gran % (Auto) (0.0-0.4) % Neut % (Auto) (45-73) % Lymph % (Auto) (20-40) % Hettinger % (Auto) (2-11) % Eos % (Auto) (0-4) % Baso % (Auto) (0-2) % Lymph # (Auto) (1.2-4.9) X10*3/uL [place] # (Auto) (0.1-1.2) X10*3/uL Eos # (Auto) (0.0-0.4) X10*3/uL Baso # (Auto) (0.0-0.2) X10*3/uL Abs Immat Gran (auto) (0.00-0.03) X10*3/uL Absolute Neuts (auto) (2.0-8.3) x10*3/uL Absolute Nucleated RBC (0.0-0.012) X10*3/uL Nucleated RBC % (auto) (0.0-0.2) /100WBC Sodium (135-145) mmol/L Potassium (3.3-5.1) mmol/L Chloride (96-108) mmol/L Carbon Dioxide (22-29) mmol/L Anion Gap (12-20) BUN (9-16) mg/dL Creatinine (0.5-1.4) mg/dL Estim Creat Clear Calc Estimated GFR Random Glucose (60-115) mg/dL Calcium (8.4-10.2) mg/dL Total Bilirubin (0.0-1.0) mg/dL Direct Bilirubin (0.0-0.5) mg/dL AST (5-37) U/L ALT (0-40) U/L Alkaline Phosphatase (39-117) U/L Total Protein (6.5-8.0) g/dL Albumin (3.5-5.0) g/dL Salicylates (15-30) mg/dL Acetaminophen (<30) mcg/mL Ethyl Alcohol < 10 mg/dL COVID-19 (LOS) (Negative) COVID-19 Clin Com Discharge Plan Discharge Clinical Impression: Adjustment disorder Patient Disposition: Still a Patient Prescriptions: No Action albuterol sulfate [Ventolin HFA] 90 mcg/actuation HFA aerosol inhaler 1 puff inhalation Q6H PRN (Reason: Wheezing) estradiol 2 mg Tablet 2 mg PO TID Vyvanse 60 mg capsule 1 cap PO QAM lamotrigine 200 mg tablet 1 tab PO DAILY Qty: 30 0RF prazosin 5 mg capsule 1 cap PO BEDTIME Qty: 30 0RF spironolactone 50 mg tablet 1 tab PO BID Qty: 60 0RF lorazepam 1 mg tablet 1 tab PO QID PRN (Reason: Anxiety) clonidine HCl 0.1 mg tablet 1 tab PO BID escitalopram oxalate 10 mg tablet 1 tab PO DAILY prazosin 2 mg capsule 1 cap PO BEDTIME buprenorphine-naloxone [Suboxone] 12-3 mg film 1 film sublingual BID Qty: 28 0RF Rx Instructions: ANNAN:[id number] Interventions: [place]-Suicide Risk Severity Scale Last Done: 03/21/22 10:14
--- NOTE | 2022-03-21 08:53 | PC.NURSE ---
PT ARRIVED ON UNIT, CALM AND COOPERATIVE. GIVEN SANDWICHES AND MILK. EXAM BY SORT OPERATIONS SUPERVISOR DONE. PHARMACY AND DISTILLERY WORKER IN TO SPEAK WITH PT
[2022-03-21 09:02] LABS: MANUAL DIFF FLAG NO
[2022-03-21 09:24] LABS: Basophils Percent Auto 0.6 % (0-2); Eosinophils Absolute Auto 0.2 X10*3/uL (0.0-0.4); Eosinophils Percent Auto 2.8 % (0-4); Hematocrit 40.1 % (42.0-52.0); Hemoglobin 13.2 g/dl (14.0-18.0); Imm Gran Abs Auto 0.02 X10*3/uL (0.00-0.03); Imm Gran Pct Auto 0.3 % (0.0-0.4); Lymphocytes Absolute Auto 1.7 X10*3/uL (1.2-4.9); Lymphocytes Percent Auto 26.6 % (20-40); Mean Corpuscular HGB Conc 32.9 g/dl (31.0-36.0); Mean Corpuscular Hemoglobin 28.1 pg (27.0-33.0); Mean Corpuscular Volume 85.3 fL (80.0-98.0); Mean Platelet Volume 9.9 fL (9.4-12.4); Monocytes Absolute Auto 0.5 X10*3/uL (0.1-1.2); Neutrophils Percent Auto 62.7 % (45-73); Platelet Count 223 X10*3/uL (160-400); Red Cell Distribution Width 14.5 % (11.0-16.0); White Blood Count 6.4 X10*3/uL (4.8-10.8)
[2022-03-21] MEDS: cloNIDine HCL 0.1 MG TABLET PO (09:53)
[2022-03-21] MEDS: Spironolactone 25 MG TABLET 50 MG PO (09:53)
[2022-03-21] MEDS: lamoTRIgine 100 MG TABLET 200 MG PO (09:53)
[2022-03-21] MEDS: Escitalopram Oxalate 10 MG TABLET PO (09:53)
[2022-03-21] MEDS: Ibuprofen 600 MG TABLET PO (09:53)
[2022-03-21] MEDS: Buprenorphine/Naloxone 12/3 mg FILM 1 FILM SUBLINGUAL ×2 (09:54→20:47)
[2022-03-21] MEDS: estradioL 0.5 MG TABLET 2 MG PO ×3 (09:55→21:06)
[2022-03-21 10:02] VITALS: BP 119/55; PULSE 84; O2SAT 97
--- NOTE | 2022-03-21 10:40 | PC.NURSE ---
PT SLEEPING AT THIS TIME. AWAITING CARE TEAM EVAL.
[2022-03-21 14:11] LABS: Acetaminophen LAB < 17 mcg/mL (<30); Alanine Aminotransferase 23 U/L (0-40); Albumin Level 3.8 g/dL (3.5-5.0); Alkaline Phosphatase 60 U/L (39-117); Anion Gap 12 (12-20); Aspartate Amino Transferase 30 U/L (5-37); Bilirubin Direct 0.2 mg/dL (0.0-0.5); Bilirubin Total 0.5 mg/dL (0.0-1.0); Blood Urea Nitrogen 22 mg/dL (9-16); Carbon Dioxide 26 mmol/L (22-29); Chloride 106 mmol/L (96-108); Creatinine Clr Calc Pharmacy 156.3; Estimated Glomerular Filt Rate > 60; Ethanol < 10 mg/dL; Glucose Random 101 mg/dL (60-115); Potassium 4.4 mmol/L (3.3-5.1); Salicylate < 5.0 mg/dL (15-30); Sodium 140 mmol/L (135-145); Total Protein 6.3 g/dL (6.5-8.0)
[2022-03-21 14:50] VITALS: BP 134/76; PULSE 73; RESP 16; TEMP 36.3; O2SAT 96
--- NOTE | 2022-03-21 15:48 | MHC.RECOVRN ---
This production underwriter met w/ patient, patient was laying in bed, under covers. Patient states was due for Sublocade at [facility] on 03/12/22, patient reports since last injection 02/08/22, patient went inpatient at the [facility], patient reports while at the [facility] received 8mg Suboxone TID, for past 2 weeks. Patient reports used one bag of heroin, once in past month. Patient states interested in making appt for Sublocade Injection at [facility].
[2022-03-21 20:45] VITALS: BP 98/58; PULSE 67; RESP 18; TEMP 36.5; O2SAT 98
[2022-03-21 20:52] LABS: Amphetamine Screen Urine POSITIVE (Not Detect); Barbiturates, Urine Not Detected (Not Detect); Benzodiazepines Screen Urine Not Detected (Not Detect); Cannabinoid Screen Urine Not Detected (Not Detect); Cocaine Screen Urine POSITIVE (Not Detect); Fentanyl, urine POSITIVE (Not Detect); Opiate Screen Urine Not Detected (Not Detect); Phencyclidine Screen Urine Not Detected (Not Detect)
[2022-03-21] MEDS: LORazepam 1 MG TABLET PO (21:46)
[2022-03-21 22:43] VITALS: BP 134/81
[2022-03-21] MEDS: Ibuprofen 800 MG TABLET PO (22:49)
[2022-03-21] MEDS: Prazosin HCL 1 MG CAPSULE 2 MG PO (22:50)
[2022-03-21] MEDS: Prazosin HCL 5 MG CAPSULE PO (22:50)
--- NOTE | 2022-03-22 05:39 | PC.NURSE ---
Patient slept through the night, no distress observed/reported, behavior non concerning, patient was assessed by care team pending disposition, patient will be reevaluated in the morning, medication compliant, will continue to monitor.
[2022-03-22 06:38] VITALS: BP 97/56; PULSE 97; RESP 14; TEMP 36.6; O2SAT 99
--- NOTE | 2022-03-22 07:54 | PC.NURSE ---
Report from Kody, care assumed for pt by this RN. Pt appears to be sleeping at this time. Resp reg and even, NAD.
[2022-03-22] MEDS: Escitalopram Oxalate 10 MG TABLET PO (09:06)
[2022-03-22] MEDS: estradioL 0.5 MG TABLET 2 MG PO ×3 (09:06→20:37)
[2022-03-22] MEDS: Buprenorphine/Naloxone 12/3 mg FILM 1 FILM SUBLINGUAL ×2 (09:07→20:37)
[2022-03-22] MEDS: Spironolactone 25 MG TABLET 50 MG PO ×2 (09:07→20:46)
[2022-03-22] MEDS: lamoTRIgine 100 MG TABLET 200 MG PO (09:07)
--- NOTE | 2022-03-22 12:53 | MHC.CARE ---
Patient is an inpatient psych bed search
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
[2022-03-22 14:00] VITALS: RESP 16
--- NOTE | 2022-03-22 15:15 | MHC.CARE ---
Care Team exhausted bedsearch.
[2022-03-22 20:26] VITALS: BP 109/59; PULSE 55; RESP 15; TEMP 36.6; O2SAT 98
[2022-03-22] MEDS: LORazepam 1 MG TABLET PO (21:35)
--- NOTE | 2022-03-23 | ECG_ITS ---
Test Reason : R/O PROLONGED QT Blood Pressure : / mmHG Vent. Rate : 065 BPM Atrial Rate : 065 BPM P-R Int : 160 ms QRS Dur : 088 ms QT Int : 386 ms P-R-T Axes : 027 015 015 degrees QTc Int : 401 ms Normal sinus rhythm Normal ECG When compared with ECG of 31-DEC-2021 17:31, QT has shortened Referred By: Page Fay Electronically Signed By:JACLYN AHN MD
--- NOTE | 2022-03-23 05:39 | PC.NURSE ---
Patient slept through the night, no distress observed/reported, medication compliant, behavior non concerning, disposition per care team is section 12 inpatient bed search, patient contracted for the safety, VSS, will continue to monitor.
--- NOTE | 2022-03-23 06:41 | MHC.EDTECH ---
Pt refused vitals.
--- NOTE | 2022-03-23 06:55 | PC.NURSE ---
patient appears to remain asleep at present respirations are even and unlabored patient appears in no distress
[2022-03-23 10:01] VITALS: BP 115/61; PULSE 63; RESP 20; TEMP 37; O2SAT 100
[2022-03-23] MEDS: Spironolactone 25 MG TABLET 50 MG PO ×2 (10:10→20:49)
[2022-03-23] MEDS: lamoTRIgine 100 MG TABLET 200 MG PO (10:11)
[2022-03-23] MEDS: Escitalopram Oxalate 10 MG TABLET PO (10:11)
[2022-03-23] MEDS: estradioL 0.5 MG TABLET 2 MG PO ×3 (10:11→20:49)
[2022-03-23] MEDS: Buprenorphine/Naloxone 12/3 mg FILM 1 FILM SUBLINGUAL ×2 (10:12→20:49)
[2022-03-23] MEDS: LORazepam 1 MG TABLET PO ×2 (14:10→20:49)
[2022-03-23 14:50] VITALS: BP 134/76; PULSE 73; RESP 16; TEMP 36.3; O2SAT 96
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
[2022-03-23 20:45] VITALS: BP 106/52; PULSE 66; RESP 16; TEMP 36.7; O2SAT 94
[2022-03-23] MEDS: Prazosin HCL 5 MG CAPSULE PO (20:49)
[2022-03-23] MEDS: Prazosin HCL 1 MG CAPSULE 2 MG PO (20:49)
[2022-03-23] MEDS: Acetaminophen 325 MG TABLET 650 MG PO (20:49)
[2022-03-23] MEDS: Nicotine Polacrilex 2 MG GUM BUCCAL (22:22)
[2022-03-24] MEDS: Buprenorphine/Naloxone 12/3 mg FILM 1 FILM SUBLINGUAL ×2 (08:23→21:26)
[2022-03-24] MEDS: Spironolactone 25 MG TABLET 50 MG PO ×2 (08:23→21:25)
[2022-03-24] MEDS: lamoTRIgine 100 MG TABLET 200 MG PO (08:23)
[2022-03-24] MEDS: estradioL 0.5 MG TABLET 2 MG PO ×3 (08:24→21:24)
[2022-03-24] MEDS: Ibuprofen 600 MG TABLET PO ×2 (08:24→21:25)
[2022-03-24] MEDS: Escitalopram Oxalate 10 MG TABLET PO (08:24)
[2022-03-24 08:32] VITALS: BP 93/54; PULSE 68; RESP 16; TEMP 36.6; O2SAT 96
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
[2022-03-24] MEDS: LORazepam 1 MG TABLET PO ×3 (09:28→21:25)
[2022-03-24] MEDS: Sennosides/Docusate Sodium TABLET 1 TAB PO ×2 (11:49→21:26)
[2022-03-24] MEDS: Dextroamphetamine/Amphetamine XR 10 MG CAP.ER.24H 20 MG PO (11:49)
[2022-03-24] MEDS: Prazosin HCL 1 MG CAPSULE 2 MG PO (21:25)
[2022-03-24] MEDS: Prazosin HCL 5 MG CAPSULE PO (21:26)
[2022-03-24 21:30] VITALS: BP 148/97; PULSE 66; TEMP 36.2; O2SAT 98
[2022-03-24] MEDS: hydrOXYzine HCL 25 MG TABLET PO (23:16)
[2022-03-24] MEDS: cloNIDine HCL 0.1 MG TABLET PO (23:17)
[2022-03-24 23:21] VITALS: BP 140/68; PULSE 68
[2022-03-25 09:00] VITALS: BP 100/56; PULSE 106; RESP 18; TEMP 36.7; O2SAT 98
[2022-03-25] MEDS: estradioL 0.5 MG TABLET 2 MG PO ×3 (09:17→20:33)
[2022-03-25] MEDS: Sennosides/Docusate Sodium TABLET 1 TAB PO ×2 (09:17→20:34)
[2022-03-25] MEDS: Dextroamphetamine/Amphetamine XR 10 MG CAP.ER.24H 20 MG PO (09:17)
[2022-03-25] MEDS: Buprenorphine/Naloxone 12/3 mg FILM 1 FILM SUBLINGUAL ×2 (09:17→20:34)
[2022-03-25] MEDS: Spironolactone 25 MG TABLET 50 MG PO ×2 (09:17→20:33)
[2022-03-25] MEDS: lamoTRIgine 100 MG TABLET 200 MG PO (09:18)
[2022-03-25] MEDS: Escitalopram Oxalate 10 MG TABLET PO (09:18)
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
[2022-03-25] MEDS: LORazepam 1 MG TABLET PO ×2 (12:28→20:34)
[2022-03-25] MEDS: Ibuprofen 600 MG TABLET PO ×2 (12:28→20:34)
[2022-03-25] MEDS: Nicotine 21 MG PATCH.TD24 TRANSDERMA (12:30)
[2022-03-25 20:30] VITALS: BP 140/85; PULSE 61; RESP 18; TEMP 36.6; O2SAT 96
[2022-03-25] MEDS: Prazosin HCL 5 MG CAPSULE PO (20:34)
[2022-03-25] MEDS: hydrOXYzine HCL 25 MG TABLET PO (20:34)
[2022-03-25] MEDS: Prazosin HCL 1 MG CAPSULE 2 MG PO (20:34)
[2022-03-26 06:00] VITALS: BP 108/62; PULSE 88; RESP 16; TEMP 37.1; O2SAT 98
[2022-03-26] MEDS: Nicotine 21 MG PATCH.TD24 TRANSDERMA (09:41)
[2022-03-26] MEDS: Buprenorphine/Naloxone 12/3 mg FILM 1 FILM SUBLINGUAL ×2 (09:41→20:48)
[2022-03-26] MEDS: lamoTRIgine 100 MG TABLET 200 MG PO (09:42)
[2022-03-26] MEDS: estradioL 0.5 MG TABLET 2 MG PO ×3 (09:42→20:48)
[2022-03-26] MEDS: Escitalopram Oxalate 10 MG TABLET PO (09:42)
[2022-03-26] MEDS: Dextroamphetamine/Amphetamine XR 10 MG CAP.ER.24H 20 MG PO (09:43)
[2022-03-26] MEDS: Spironolactone 25 MG TABLET 50 MG PO ×2 (09:43→20:48)
[2022-03-26] MEDS: Sennosides/Docusate Sodium TABLET 1 TAB PO ×2 (09:43→20:48)
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
[2022-03-26] MEDS: LORazepam 1 MG TABLET PO ×3 (10:16→20:48)
[2022-03-26 20:42] VITALS: BP 141/86; PULSE 75; RESP 18; TEMP 35.7; O2SAT 99
[2022-03-26] MEDS: Prazosin HCL 5 MG CAPSULE PO (20:48)
[2022-03-26] MEDS: Ibuprofen 600 MG TABLET PO (20:48)
[2022-03-26] MEDS: Prazosin HCL 1 MG CAPSULE 2 MG PO (20:48)
[2022-03-27] MEDS: lamoTRIgine 100 MG TABLET 200 MG PO (08:40)
[2022-03-27] MEDS: Sennosides/Docusate Sodium TABLET 1 TAB PO ×2 (08:40→20:23)
[2022-03-27] MEDS: Escitalopram Oxalate 5 MG TABLET 15 MG PO (08:40)
[2022-03-27] MEDS: estradioL 0.5 MG TABLET 2 MG PO ×3 (08:40→20:24)
[2022-03-27] MEDS: Dextroamphetamine/Amphetamine XR 10 MG CAP.ER.24H 20 MG PO (08:40)
[2022-03-27] MEDS: LORazepam 1 MG TABLET PO ×3 (08:41→20:23)
[2022-03-27] MEDS: Buprenorphine/Naloxone 12/3 mg FILM 1 FILM SUBLINGUAL ×2 (08:41→20:24)
[2022-03-27] MEDS: Spironolactone 25 MG TABLET 50 MG PO ×2 (08:41→20:24)
[2022-03-27] MEDS: Ibuprofen 600 MG TABLET PO ×2 (08:41→20:24)
[2022-03-27 09:05] VITALS: BP 97/55; PULSE 68; RESP 16; TEMP 36.2; O2SAT 95
[2022-03-27] MEDS: Nicotine 21 MG PATCH.TD24 TRANSDERMA (09:45)
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
[2022-03-27] MEDS: hydrOXYzine HCL 25 MG TABLET PO (18:17)
[2022-03-27] MEDS: Magnesium Hydrox/Alum Hydrox 30 ML ORAL.SUSP PO (18:19)
[2022-03-27 20:18] VITALS: BP 138/84; PULSE 95; RESP 18; TEMP 36.6; O2SAT 97
[2022-03-27] MEDS: Prazosin HCL 1 MG CAPSULE 2 MG PO (20:24)
[2022-03-27] MEDS: Prazosin HCL 5 MG CAPSULE PO (20:24)
[2022-03-27 21:50] VITALS: BP 116/60; PULSE 110; RESP 18; TEMP 36.3; O2SAT 100
[2022-03-27] MEDS: cloNIDine HCL 0.1 MG TABLET PO (21:53)
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
[2022-03-28 09:30] VITALS: BP 84/48; PULSE 58; RESP 16; TEMP 36.2; O2SAT 94
[2022-03-28 09:40] VITALS: BP 94/52; PULSE 60
[2022-03-28 10:00] VITALS: BP 117/68; PULSE 64; RESP 18; O2SAT 96
[2022-03-28] MEDS: Nicotine 21 MG PATCH.TD24 TRANSDERMA (10:09)
[2022-03-28] MEDS: Dextroamphetamine/Amphetamine XR 10 MG CAP.ER.24H 20 MG PO (10:09)
[2022-03-28] MEDS: Escitalopram Oxalate 5 MG TABLET 15 MG PO (10:10)
[2022-03-28] MEDS: estradioL 0.5 MG TABLET 2 MG PO ×3 (10:10→20:40)
[2022-03-28] MEDS: Spironolactone 25 MG TABLET 50 MG PO ×2 (10:15→20:41)
[2022-03-28] MEDS: lamoTRIgine 100 MG TABLET 200 MG PO (10:15)
[2022-03-28] MEDS: Buprenorphine/Naloxone 12/3 mg FILM 1 FILM SUBLINGUAL ×2 (10:16→20:41)
[2022-03-28] MEDS: Sennosides/Docusate Sodium TABLET 1 TAB PO ×2 (10:23→20:40)
[2022-03-28] MEDS: LORazepam 1 MG TABLET PO ×2 (12:17→20:41)
[2022-03-28] MEDS: Ibuprofen 600 MG TABLET PO (12:18)
[2022-03-28 20:30] VITALS: BP 137/73; PULSE 77; RESP 18; TEMP 36.6; O2SAT 98
[2022-03-28] MEDS: hydrOXYzine HCL 25 MG TABLET PO (20:40)
[2022-03-28] MEDS: Prazosin HCL 1 MG CAPSULE 2 MG PO (20:40)
[2022-03-28] MEDS: Prazosin HCL 5 MG CAPSULE PO (20:41)
[2022-03-29 09:30] VITALS: BP 102/52; PULSE 62; TEMP 36.8; O2SAT 97
[2022-03-29] MEDS: Dextroamphetamine/Amphetamine XR 10 MG CAP.ER.24H 20 MG PO (09:37)
[2022-03-29] MEDS: LORazepam 1 MG TABLET PO ×3 (09:37→20:10)
[2022-03-29] MEDS: estradioL 0.5 MG TABLET 2 MG PO ×3 (09:37→20:10)
[2022-03-29] MEDS: Escitalopram Oxalate 5 MG TABLET 15 MG PO (09:38)
[2022-03-29] MEDS: lamoTRIgine 100 MG TABLET 200 MG PO (09:39)
[2022-03-29] MEDS: Ibuprofen 600 MG TABLET PO ×2 (09:39→20:10)
[2022-03-29] MEDS: Spironolactone 25 MG TABLET 50 MG PO ×2 (09:39→20:10)
[2022-03-29] MEDS: Buprenorphine/Naloxone 12/3 mg FILM 1 FILM SUBLINGUAL ×2 (09:40→20:09)
[2022-03-29] MEDS: Sennosides/Docusate Sodium TABLET 1 TAB PO ×2 (09:40→20:10)
[2022-03-29] MEDS: Nicotine 21 MG PATCH.TD24 TRANSDERMA (09:40)
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
[2022-03-29] MEDS: Prazosin HCL 5 MG CAPSULE PO (20:09)
[2022-03-29] MEDS: Prazosin HCL 1 MG CAPSULE 2 MG PO (20:10)
[2022-03-29 20:15] VITALS: BP 130/92; PULSE 90; RESP 18; TEMP 36.6; O2SAT 97
[2022-03-30] MEDS: Sennosides/Docusate Sodium TABLET 1 TAB PO (07:32)
[2022-03-30] MEDS: LORazepam 1 MG TABLET PO (07:32)
[2022-03-30] MEDS: Escitalopram Oxalate 5 MG TABLET 15 MG PO (07:32)
[2022-03-30] MEDS: lamoTRIgine 100 MG TABLET 200 MG PO (07:33)
[2022-03-30] MEDS: estradioL 0.5 MG TABLET 2 MG PO (07:33)
[2022-03-30] MEDS: Buprenorphine/Naloxone 12/3 mg FILM 1 FILM SUBLINGUAL (07:33)
[2022-03-30] MEDS: Dextroamphetamine/Amphetamine XR 10 MG CAP.ER.24H 20 MG PO (07:33)
[2022-03-30] MEDS: Spironolactone 25 MG TABLET 50 MG PO (07:33)
[2022-03-30] MEDS: Ibuprofen 600 MG TABLET PO (07:34)
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
[2022-03-30] MEDS: Naloxone HCl Nasal TAKE HOME 4 MG SPRAY NOSTRILALT (10:00)
== END 2022-03-30 09:30 | disposition home or self-care (01) | DRG 753 ==
LOC: HO.ED 03-23 12:50 → HO.PADLT16 03-23 14:22
PROVIDERS: Nurse Practitioner Family; Admitting Provider Psychiatry & Neurology Psychiatry; Emergency Provider Emergency Medicine; Visit Provider Social Worker
DX: F31.81 Bipolar II disorder (principal); R45.851 Suicidal ideations; F43.10 Post-traumatic stress disorder, unspecified; F60.3 Borderline personality disorder; F64.0 Transsexualism; F14.20 Cocaine dependence, uncomplicated; F11.20 Opioid dependence, uncomplicated; F17.210 Nicotine dependence, cigarettes, uncomplicated; F90.9 Attention-deficit hyperactivity disorder, unspecified type; Z20.822 Contact with and (suspected) exposure to COVID-19; Z71.6 Tobacco abuse counseling; Z79.899 Other long term (current) drug therapy
CPT/HCPCS: 36415; 80048; 80076; 80143; 80179; 80307; 82077; 85025; 87635; 93005; 99284; 99285; S9485

== ENCOUNTER → 2022-03-30 09:43 | Outpatient (BNVA) | payer MEDICAID, SELFPAY | PROVIDERS: Visit Provider Nurse Practitioner Psychiatric/Mental Health | DX: F11.20 Opioid dependence, uncomplicated (principal); F14.20 Cocaine dependence, uncomplicated | CPT/HCPCS: 80305; 99212 ==

== ENCOUNTER 2022-04-03 19:13 | Emergency (ER) | payer MEDICAID, OTHER, SELFPAY ==
[2022-04-03 19:18] VITALS: BP 122/83; PULSE 77; RESP 16; TEMP 37.3; O2SAT 98; BMI 38.4
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
[2022-04-03 19:54] LABS: COVID-19 Test Negative (Negative); IDNOW Serial# 6674DD1D
[2022-04-03 21:04] LABS: Ethanol < 10 mg/dL
[2022-04-04 01:39] LABS: Appearance Urine Clear; Color Urine Yellow; Glucose Urine UA Negative (Negative); Leukocyte Esterase Urine Negative (Negative); Nitrite Urine Negative (Negative); Specific Gravity - Urine 1.015 (1.005-1.025); Urine Blood Negative (Negative); Urine Ketones Negative (Negative); Urine Protein Negative (Neg-Trace)
[2022-04-04 01:51] LABS: Amphetamine Screen Urine Not Detected (Not Detect); Barbiturates, Urine Not Detected (Not Detect); Benzodiazepines Screen Urine Not Detected (Not Detect); Cannabinoid Screen Urine POSITIVE (Not Detect); Cocaine Screen Urine POSITIVE (Not Detect); Fentanyl, urine POSITIVE (Not Detect); Opiate Screen Urine POSITIVE (Not Detect); Phencyclidine Screen Urine Not Detected (Not Detect)
[2022-04-04 04:39] VITALS: BP 114/54; PULSE 65; RESP 17; TEMP 36.3; O2SAT 96
--- NOTE | 2022-04-04 04:39 | MHC.EDTECH ---
pt is watching tv, vitals were taken, and he wanted more gingerale
[2022-04-04] MEDS: LORazepam 1 MG TABLET PO (05:02)
[2022-04-04] MEDS: Buprenorphine/Naloxone 8/2 mg FILM 1 FILM BUCCAL ×3 (05:03→21:03)
--- NOTE | 2022-04-04 05:06 | PC.NURSE ---
Patient slept though the night, no distress observed/reported, HS medication were not administered patient was sound sleep, PRN Ativan 1 mg administered pending effect, patient is awaiting care team assessment, behavior appropriate and non concerning, will continue to monitor.
--- NOTE | 2022-04-04 10:22 | PC.NURSE ---
PT REMAINS ASLEEP. WAITING CARE TEAM ASSESSMENT
[2022-04-04] MEDS: Escitalopram Oxalate 10 MG TABLET PO (10:43)
[2022-04-04] MEDS: Sennosides/Docusate Sodium TABLET 1 TAB PO ×2 (10:43→21:03)
[2022-04-04] MEDS: lamoTRIgine 100 MG TABLET 200 MG PO (10:43)
[2022-04-04] MEDS: Spironolactone 25 MG TABLET 50 MG PO ×2 (10:44→21:03)
[2022-04-04 10:46] VITALS: BP 111/53; PULSE 64; RESP 16; O2SAT 95
--- NOTE | 2022-04-04 17:04 | MHC.RECOVSUP ---
? Reason for consult:Recovery Support o Current location: [facility]? o Identified substance use concern: [place]ARRIS Heroine ? - Seeking ATS (detox) - Support ? ?Intervention: o ATS bed search started/completed/in process o Community resources provided o Harm reduction discussion ? Plan: o Referral to [facility] o Bed search in progress to [facility] ? Additional information:?Pt consultation with Care Team prior to entry. I connected with Pt she agreed to detox. I connected with [facility] . Paperwork was sent over to both facilities and Pt is currently doing an intake over the phone with [facility] at this time.
[2022-04-04 20:00] VITALS: BP 129/68; PULSE 66; RESP 16; TEMP 37.1; O2SAT 97
[2022-04-04] MEDS: Prazosin HCL 1 MG CAPSULE 2 MG PO (21:03)
[2022-04-04] MEDS: Prazosin HCL 5 MG CAPSULE PO (21:03)
[2022-04-05 05:35] VITALS: BP 129/69; PULSE 79; RESP 17; TEMP 36.6; O2SAT 97
[2022-04-05 09:28] VITALS: BP 139/89; PULSE 67; RESP 14; O2SAT 96
[2022-04-05] MEDS: lamoTRIgine 100 MG TABLET 200 MG PO (09:58)
[2022-04-05] MEDS: Sennosides/Docusate Sodium TABLET 1 TAB PO (09:58)
[2022-04-05] MEDS: Escitalopram Oxalate 10 MG TABLET PO (09:58)
[2022-04-05] MEDS: Buprenorphine/Naloxone 8/2 mg FILM 1 FILM BUCCAL ×2 (09:58→14:32)
[2022-04-05] MEDS: Spironolactone 25 MG TABLET 50 MG PO (09:58)
--- NOTE | 2022-04-05 11:21 | MHC.RECOVRN ---
This mortgage or loan underwriter met w/ patient, who was sleeping, awake to verbal stimuli. Patient agreeable to detox search in [facility]. At this time, [facility] does not have open detox beds. This mortgage or loan underwriter experienced barriers to care for patient. [facility] does not accommodate transgender patients. [facility] and [facility] do not accept patients insurance. This mortgage or loan underwriter attempted to contact [facility], [facility], [facility], left voicemails at facilities. This mortgage or loan underwriter reviewed facilities at bedside with patient for patient to call and follow up from the community, encouraged to follow up with [facility] as these facilities confirmed accommodating transgender patients. Patient reminded of appointment tomorrow at the [facility] at 10:45am. Patient verbalized understanding.
--- NOTE | 2022-04-05 11:44 | PC.NURSE ---
Labs, meds and psych consult faxed over to [facility] per request.
--- NOTE | 2022-04-05 13:29 | PC.NURSE ---
Attempted call to [facility] for update x2, no answer
--- NOTE | 2022-04-05 14:41 | MHC.RECOVRN ---
ATS bedsearch exhausted, patient, ED RN, Provider aware.
[2022-04-05] MEDS: LORazepam 1 MG TABLET PO (15:56)
== END 2022-04-05 16:00 | disposition home or self-care (01) ==
PROVIDERS: Emergency Provider Internal Medicine
DX: R45.851 Suicidal ideations (principal); F43.10 Post-traumatic stress disorder, unspecified; F31.81 Bipolar II disorder; Z20.822 Contact with and (suspected) exposure to COVID-19; F14.20 Cocaine dependence, uncomplicated; F11.20 Opioid dependence, uncomplicated; F90.9 Attention-deficit hyperactivity disorder, unspecified type; F12.20 Cannabis dependence, uncomplicated; F19.94 Other psychoactive substance use, unspecified with psychoactive substance-induced mood disorder; F60.3 Borderline personality disorder; I10 Essential (primary) hypertension; J45.909 Unspecified asthma, uncomplicated; F17.210 Nicotine dependence, cigarettes, uncomplicated; Z79.899 Other long term (current) drug therapy
CPT/HCPCS: 36415; 80307; 81003; 82077; 87635; 99284; 99285; S9485

== ENCOUNTER → 2022-04-06 13:11 | Outpatient (BNVA) | payer MEDICAID, SELFPAY | PROVIDERS: Visit Provider Nurse Practitioner Psychiatric/Mental Health | DX: F11.20 Opioid dependence, uncomplicated (principal) | CPT/HCPCS: 99212 ==

== ENCOUNTER → 2022-04-15 15:09 | Outpatient (BNVA) | payer MEDICAID, SELFPAY | PROVIDERS: Visit Provider Nurse Practitioner Psychiatric/Mental Health | DX: Z51.81 Encounter for therapeutic drug level monitoring (principal); F11.20 Opioid dependence, uncomplicated | CPT/HCPCS: 99212 ==

== ENCOUNTER → 2022-04-22 15:03 | Outpatient (BNVA) | payer MEDICAID, SELFPAY | PROVIDERS: Visit Provider Nurse Practitioner Psychiatric/Mental Health | DX: F11.20 Opioid dependence, uncomplicated (principal); F14.20 Cocaine dependence, uncomplicated; F12.20 Cannabis dependence, uncomplicated | CPT/HCPCS: 99212 ==

== ENCOUNTER 2022-05-04 05:09 | Emergency (ER) | payer MEDICAID, SELFPAY ==
[2022-05-04 05:18] VITALS: BP 142/83; BP 160/112; PULSE 60; PULSE 70; RESP 16; TEMP 36.3; O2SAT 99; BMI 31.7
--- NOTE | 2022-05-04 05:37 | ED.DENTAL ---
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 when EMS arrived patient had here the toothache which is going on for a while got worse for last few days patient is homeless looking for a place to sleep Related Data Home Medications Medication Instructions Recorded Confirmed albuterol sulfate 90 mcg/actuation 1 puff inhalation Q6H PRN Wheezing 08/07/21 04/03/22 aerosol inhaler (Ventolin HFA) clonidine HCl 0.1 mg tablet 1 tab PO BID PRN anxiety 04/03/22 04/03/22 escitalopram oxalate 10 mg tablet 1 tab PO DAILY 04/03/22 04/03/22 lamotrigine 100 mg tablet 2 tab PO DAILY 04/03/22 04/03/22 lisdexamfetamine 60 mg capsule 1 cap PO DAILY 04/03/22 04/03/22 (Vyvanse) lorazepam 1 mg tablet 1 tab PO QID PRN Anxiety 04/03/22 04/03/22 nicotine 21 mg/24 hr daily 1 patch topical DAILY 04/03/22 04/03/22 transdermal patch prazosin 2 mg capsule 1 cap PO BEDTIME 04/03/22 04/03/22 prazosin 5 mg capsule 1 cap PO BEDTIME 04/03/22 04/03/22 sennosides 8.6 mg-docusate sodium 1 tab PO BID 04/03/22 04/03/22 50 mg tablet (Stimulant Laxative Plus) spironolactone 50 mg tablet 1 tab PO BID 04/03/22 04/03/22 estradiol 2 mg tablet 6 mg PO DAILY 04/05/22 04/05/22 Previous Rx's Medication Instructions Recorded buprenorphine 8 mg-naloxone 2 mg 1 film sublingual TID #42 ea 04/22/22 sublingual film amoxicillin 875 mg-potassium 1 tab PO BID #20 tabs 05/04/22 clavulanate 125 mg tablet ibuprofen 600 mg tablet 600 mg PO Q6H PRN fever or pain 05/04/22 #30 tabs Allergies Allergy/AdvReac Type Severity Reaction Status Date / Time aripiprazole [From [facility]] Allergy Unknown UNKNOWN Verified 04/22/22 15:07 Review of Systems Review of Systems: Yes all other systems are reviewed and are negative [facility] Past Medical History Medical History Abscess of left upper extremity ADHD Anxiety Asthma Borderline personality disorder Cocaine substance abuse Depression HTN (hypertension) IBS (irritable bowel syndrome) Opiate misuse Opioid use disorder, severe, dependence Perianal cyst PTSD (post-traumatic stress disorder) PTSD (post-traumatic stress disorder) Tibial torsion, bilateral Social History Social History Household Members: Family Housing: Homeless Housing Other:: [facility] Do you presently have visiting nurse or other home services: No Unable to assess alcohol history related to: Refusing to respond Alcohol intake: former Patient Tobacco Use Status: Current everyday Tobacco user Tobacco use type: Cigarette Cigarette Packs Per Day: 1 Cigarettes Per Day: 20.0 Years Smoked: 20 Smoked in Last 30 Days: Yes e-Cigarette/Vaping Use: Never Used Second Hand Smoke Exposure: No Use of substances other than those prescribed or required for medical reasons: Yes Substance Use Type: Marijuana Substance Use Frequency: Daily Last Used Substance: Hours (ago) Any prior treatment program specific to substance use: Yes Advance Directives: No service: No Current occupational status: unemployed Sexual orientation: Lesbian/Rao/Homosexual Physical Exam Vital Signs: Vital Signs: Last Vital Signs Temp 97.3 F 05/04/22 05:18 Pulse 60 05/04/22 05:18 Resp 16 05/04/22 05:18 BP 142/83 H 05/04/22 05:18 BMI result Body Mass Index 31.7 Const: General: comfortable HEENT: Teeth image: 1. Diffuse dental caries no gum swelling no pus discharge Resp: Effort & Inspection: normal respiratory effort Auscultation: clear to auscultation bilaterally Cardio: Palpation: normal PMI Rhythm: regular rhythm Heart sounds: S1 normal heart sound present and S2 normal heart sound present Medications Administered Discontinued Medications Generic Name Dose Route Start Last Admin Trade Name Freq PRN Reason Stop Dose Admin Amoxicillin/Clavulanate Potassium 875 mg 05/04/22 05:37 05/04/22 05:54 Amoxicillin/Potassium Clav 875 Mg Tablet PO 05/04/22 05:38 875 mg ONCE ONE Administration Ibuprofen 600 mg 05/04/22 05:37 05/04/22 05:54 Ibuprofen 600 Mg Tablet PO 05/04/22 05:38 600 mg ONCE ONE Administration Discharge Plan Discharge Clinical Impression: Dental caries Patient Disposition: Home, Self-Care Instructions: Toothache (ED) Additional Instructions: Take antibiotics and pain medicine as prescribed and follow up with dentist Prescriptions: New ibuprofen 600 mg tablet 600 mg PO Q6H PRN (Reason: fever or pain) Qty: 30 0RF amoxicillin-pot clavulanate 875-125 mg tablet 1 tab PO BID Qty: 20 0RF No Action albuterol sulfate [Ventolin HFA] 90 mcg/actuation HFA aerosol inhaler 1 puff inhalation Q6H PRN (Reason: Wheezing) clonidine HCl 0.1 mg tablet 1 tab PO BID PRN (Reason: anxiety) sennosides-docusate sodium [Stimulant Laxative Plus] 8.6-50 mg tablet 1 tab PO BID prazosin 5 mg capsule 1 cap PO BEDTIME nicotine 21 mg/24 hr patch 24 hour 1 patch topical DAILY lamotrigine 100 mg tablet 2 tab PO DAILY prazosin 2 mg capsule 1 cap PO BEDTIME spironolactone 50 mg tablet 1 tab PO BID escitalopram oxalate 10 mg tablet 1 tab PO DAILY Vyvanse 60 mg capsule 1 cap PO DAILY lorazepam 1 mg tablet 1 tab PO QID PRN (Reason: Anxiety) estradiol 2 mg tablet 6 mg PO DAILY buprenorphine-naloxone 8-2 mg film 1 film sublingual TID Qty: 42 0RF
[2022-05-04] MEDS: Ibuprofen 600 MG TABLET PO (05:54)
[2022-05-04] MEDS: Amoxicillin/Potassium Clav 875 MG TABLET PO (05:54)
== END 2022-05-04 07:14 | disposition home or self-care (01) ==
PROVIDERS: Emergency Provider Internal Medicine
DX: K02.9 Dental caries, unspecified (principal); K08.89 Other specified disorders of teeth and supporting structures; F17.210 Nicotine dependence, cigarettes, uncomplicated; Z71.6 Tobacco abuse counseling; Z79.899 Other long term (current) drug therapy
CPT/HCPCS: 99283; 99284

== ENCOUNTER → 2022-05-06 15:21 | Outpatient (BNVA) | payer MEDICAID, SELFPAY | PROVIDERS: Visit Provider Nurse Practitioner Psychiatric/Mental Health | DX: F11.20 Opioid dependence, uncomplicated (principal); F14.20 Cocaine dependence, uncomplicated; F43.10 Post-traumatic stress disorder, unspecified; F60.3 Borderline personality disorder; F41.9 Anxiety disorder, unspecified; F17.210 Nicotine dependence, cigarettes, uncomplicated; Z59.01 Sheltered homelessness | CPT/HCPCS: 99212 ==

== ENCOUNTER → 2022-05-20 16:04 | Outpatient (BNVA) | payer MEDICAID, SELFPAY | PROVIDERS: Visit Provider Nurse Practitioner Psychiatric/Mental Health | DX: F11.20 Opioid dependence, uncomplicated (principal); F14.20 Cocaine dependence, uncomplicated; M79.675 Pain in left toe(s); Z53.29 Procedure and treatment not carried out because of patient's decision for other reasons; F60.3 Borderline personality disorder; F43.10 Post-traumatic stress disorder, unspecified; F17.210 Nicotine dependence, cigarettes, uncomplicated; Z79.899 Other long term (current) drug therapy; Z51.81 Encounter for therapeutic drug level monitoring; Z59.01 Sheltered homelessness | CPT/HCPCS: 99212 ==

== ENCOUNTER 2022-07-12 10:30 | Inpatient (IN) | payer OTHER, SELFPAY ==
--- NOTE | 2022-07-12 | ECG_ITS ---
Test Reason : MED CLEARANCE Blood Pressure : / mmHG Vent. Rate : 058 BPM Atrial Rate : 058 BPM P-R Int : 144 ms QRS Dur : 084 ms QT Int : 414 ms P-R-T Axes : 032 040 027 degrees QTc Int : 406 ms Sinus bradycardia with Premature atrial complexes Otherwise normal ECG When compared with ECG of 23-MAR-2022 13:34, Premature atrial complexes are now Present Referred By: Cipriano Rushing Electronically Signed By:ANN GONZALEZ
--- NOTE | 2022-07-12 10:34 | ED.PSYCH ---
HPI - Psych General Chief Complaint: Psychiatric Symptoms <PRESTON Alva - Last Filed: 07/12/22 15:16> Stated Complaint: si with plan, wants detox per ems <PRESTON Alva Last Filed: 07/12/22 15:16> Time Seen by Provider: 07/12/22 10:33 <PRESTON Alva Last Filed: 07/12/22 15:16> Source: patient and EMS <PRESTON Alva Last Filed: 07/12/22 15:16> Mode of arrival: EMS <PRESTON Alva Last Filed: 07/12/22 15:16> Limitations: no limitations <PRETSON Alva Last Filed: 07/12/22 15:16> History of Present Illness HPI Narrative: 31-year-old male transgender to female with history of bipolar, PTSD, psychoactive substance induced mood disorder, borderline personality disorder, cocaine and opioid use disorder who presents to the ER for evaluation of suicidal ideation, depression, and dope sickness. patient reportedly has been off of their medications for the last couple of months. They have been feeling overly depressed, overwhelmed and resorted back to using IV drugs. Patient reports that they tried to overdose by injecting 30 bags 2 days ago. She never lost consciousness and was just very high for 24 hours. She plans to jump in front of a car or off a bridge. She states she last used yesterday morning and is feeling nauseated, having diarrhea and gooseflesh. <PRESTON Alva Last Filed: 07/12/22 15:16> MD complaint: suicidal ideation, feels depressed and substance abuse <PRESTON Alva - Last Filed: 07/12/22 15:16> Onset (ago): week(s) <PRESTON Alva Last Filed: 07/12/22 15:16> Duration: changing over time and getting worse <PRESTON Alva Last Filed: 07/12/22 15:16> History of same: Yes <PRESTON Alva Last Filed: 07/12/22 15:16> Relieving factors: medication <PRESTON Alva Last Filed: 07/12/22 15:16> Exacerbating factors: drug use <PRESTON Alva - Last Filed: 07/12/22 15:16> Context: recent drug abuse and significant life stressor <PRESTON Alva - Last Filed: 07/12/22 15:16> Associated psychiatric symptoms: depression and suicidal ideation <PRESTON Alva - Last Filed: 07/12/22 15:16> Associated symptoms: nausea and vomiting <PRESTON Alva - Last Filed: 07/12/22 15:16> If self harm: admits thoughts of self harm, has plan and has acted on plan <PRESTON Alva - Last Filed: 07/12/22 15:16> Related Data Home Medications: Home Medications Medication Instructions Recorded Confirmed No Known Home Meds 07/12/22 07/12/22 <PRESTON Alva - Last Filed: 07/12/22 15:16> Allergies/Adverse Reactions: Allergies Allergy/AdvReac Type Severity Reaction Status Date / Time aripiprazole [From ABILIFY] Allergy Unknown UNKNOWN Verified 06/04/22 11:40 <PRESTON Alva - Last Filed: 07/12/22 15:16> Review of Systems Review of Systems: Yes all other systems are reviewed and are negative <PRESTON Alva - Last Filed: 07/12/22 15:16> PMFSH Past Medical History Medical History: Medical History Abscess of left upper extremity ADHD Anxiety Asthma Borderline personality disorder Cocaine substance abuse Depression HTN (hypertension) IBS (irritable bowel syndrome) Opiate misuse Opioid use disorder, severe, dependence Perianal cyst PTSD (post-traumatic stress disorder) PTSD (post-traumatic stress disorder) Tibial torsion, bilateral <PRESTON Alva Last Filed: 07/12/22 15:16> Social History Social History: Social History Household Members: Family Housing: Homeless Housing Other:: [facility] Do you presently have visiting nurse or other home services: No Unable to assess alcohol history related to: Refusing to respond Alcohol intake: former Patient Tobacco Use Status: Current everyday Tobacco user Tobacco use type: Cigarette Cigarette Packs Per Day: 1 Cigarettes Per Day: 20.0 Years Smoked: 20 e-Cigarette/Vaping Use: Never Used Second Hand Smoke Exposure: No Substance Use Type: Marijuana Advance Directives: No service: No Current occupational status: unemployed Sexual orientation: Lesbian/Rao/Homosexual <PRESTON Alva - Last Filed: 07/12/22 15:16> Physical Exam Vital Signs: Vital Signs: Last Vital Signs Temp 97.8 F 07/13/22 04:15 Pulse 68 07/13/22 04:15 Resp 17 07/13/22 04:15 BP 148/92 H 07/13/22 04:15 Pulse Ox 98 07/13/22 04:15 O2 Del Method Room Air 07/13/22 04:15 BMI result Body Mass Index 32.5 <PRESTON Alva - Last Filed: 07/12/22 15:16> Vital Signs: Last Vital Signs Temp 97.8 F 07/13/22 04:15 Pulse 68 07/13/22 04:15 Resp 07/13/22 04:15 BP 148/92 H 07/13/22 04:15 Pulse Ox 98 07/13/22 04:15 O2 Del Method Room Air 07/13/22 04:15 BMI result Body Mass Index 32.5 <Cipriano Rushing MD - Last Filed: 07/13/22 07:57> Appearance: Alert. Oriented X3. Tearful, poorly kempt Head: normocephalic, atraumatic. Eyes: Pupils equal, round and reactive to light. ENT: Pharynx normal. No tonsillar swelling or exudate. Neck: Normal inspection. Neck supple. CVS: Normal heart rate and rhythm. Pulses normal. Respiratory: No respiratory distress. Breath sounds normal. Abdomen: Soft and nontender. +BS x4 Skin: Skin warm and dry. Normal skin color. Normal skin turgor. No rashes. Extremities: No lower extremity edema. No joint swelling. Bilateral forearms with a raised erythematous rash w/ excoriations. left AC area with track perez. Neuro/psych: Oriented X 3. No motor deficit. No sensory deficit. CN II-XII intact. Normal speech and cognition. Makes adequate eye contact, answers questions appropriately, tearful with terrible mood, active SI, no AH/VH, poor judgment <PRESTON Alva - Last Filed: 07/12/22 15:16> Course Reevaluation(s) Reevaluation #1: Patient's lab workup was unremarkable. Urine toxicology is positive for opiates, fentanyl, cocaine, marijuana. Alcohol level is less than 10. Will place patient in physician observation. Patient is pending evaluation from the care team to determine if inpatient psychiatric care is warranted. Case has been discussed with recovery team, given opiate withdrawal symptoms 30 mg of methadone has been administered. Will continue to monitor cows score Q shift. <PRESTON Alva - Last Filed: 07/12/22 15:16> Time: 13:04 <PRESTON Alva - Last Filed: 07/12/22 15:16> Reevaluation #2: physician observation: Patient remains a voluntary bedsearch, she is in observation to see if she improves while the bedsearch is continued. She had an uneventful night. <Cipriano Rushing MD - Last Filed: 07/13/22 07:57> Time: 07:57 <Cipriano Rushing MD - Last Filed: 07/13/22 07:57> Medications Administered Discontinued Medications Generic Name Dose Route Start Last Admin Trade Name Freq PRN Reason Stop Dose Admin Buprenorphine/Naloxone 1 film 07/12/22 21:35 07/12/22 21:37 Buprenorphine/Naloxone 8/2 Mg Film SUBLINGUAL 07/12/22 21:36 1 film ONCE ONE Administration Clonidine HCl 0.1 mg 07/12/22 22:41 07/12/22 22:43 Clonidine Hcl 0.1 Mg Tablet PO 07/12/22 22:42 0.1 mg ONCE ONE Administration Protocol Methadone HCl 30 mg 07/12/22 11:07 07/12/22 12:16 Methadone Hcl 20 Mg/2 Ml Oral.Conc PO 07/12/22 11:08 30 mg ONCE ONE Administration <PRESTON Alva - Last Filed: 07/12/22 15:16> Medications Administered Discontinued Medications Generic Name Dose Route Start Last Admin Trade Name Freq PRN Reason Stop Dose Admin Buprenorphine/Naloxone 1 film 07/12/22 21:35 07/12/22 21:37 Buprenorphine/Naloxone 8/2 Mg Film SUBLINGUAL 07/12/22 21:36 1 film ONCE ONE Administration Clonidine HCl 0.1 mg 07/12/22 22:41 07/12/22 22:43 Clonidine Hcl 0.1 Mg Tablet PO 07/12/22 22:42 0.1 mg ONCE ONE Administration Protocol Methadone HCl 30 mg 07/12/22 11:07 07/12/22 12:16 Methadone Hcl 20 Mg/2 Ml Oral.Conc PO 07/12/22 11:08 30 mg ONCE ONE Administration <Cipriano Rushing MD - Last Filed: 07/13/22 07:57> Medical Decision Making Medical Decision Making MDM Narrative: 31-year-old transgender male to female with history of PTSD, bipolar to with major depression, polysubstance abuse, ADHD, psycho active substance induced mood disorder, borderline personality disorder who presents to the ER for evaluation of increased depression, suicidality with several plans to kill himself ( jump off a bridge, jump out of a car, overdose). patient admits to being off of their psychiatric medications for the last couple of months. Medical workup is unremarkable. Patient is medically cleared. Care team to evaluate the patient for possible inpatient level of care. Patient is placed in physician observation at 13:00. Will continue to monitor and follow up with care team recommendations. <PRESTON Alva - Last Filed: 07/12/22 15:16> Differential Diagnosis Differential Diagnoses: The differential diagnosis associated with the presentation includes <PRESTON Alva - Last Filed: 07/12/22 15:16> substance induced mood disorder, acute psychosis, schizophrenia, schizoaffective disorder, PTSD, bipolar disorder, major depression with psychotic features <PRESTON Alva - Last Filed: 07/12/22 15:16> Admission/Observation Consideration of admission/observation: Escalation of care including admission/observation considered <PRESTON Alva Last Filed: 07/12/22 15:16> Consult Healthcare Provider Management of the patient was discussed with: [employer] <PRESTON Alva - Last Filed: 07/12/22 15:16> care team <PRESTON Alva - Last Filed: 07/12/22 15:16> Lab Data [facility] Lab Attestation statement: I reviewed the patient's lab results. <PRESTON Alva - Last Filed: 07/12/22 15:16> Result Diagrams: 07/12/22 10:53 07/12/22 10:53 <PRESTON Alva - Last Filed: 07/12/22 15:16> Labs: Lab Results 07/12/22 07/12/22 07/12/22 Range/Units 10:53 10:53 10:53 WBC 7.7 (4.8-10.8) X10*3/uL RBC 4.22 L (4.60-5.80) X10*6/uL Hgb 11.9 L (14.0-18.0) g/dl Hct 35.8 L (42.0-52.0) % MCV 84.8 (80.0-98.0) fL MCH 28.2 (27.0-33.0) pg MCHC 33.2 (31.0-36.0) g/dl RDW 13.4 (11.0-16.0) % Plt Count 228 (160-400) X10*3/uL MPV 9.1 L (9.4-12.4) fL Immature Gran % (Auto) 0.3 (0.0-0.4) % Neut % (Auto) 72.2 (45-73) % Lymph % (Auto) 21.5 (20-40) % Grady % (Auto) 4.9 (2-11) % Eos % (Auto) 0.6 (0-4) % Baso % (Auto) 0.5 (0-2) % Lymph # (Auto) 1.7 (1.2-4.9) X10*3/uL Grady # (Auto) 0.4 (0.1-1.2) X10*3/uL Eos # (Auto) 0.1 (0.0-0.4) X10*3/uL Baso # (Auto) 0.0 (0.0-0.2) X10*3/uL Abs Immat Gran (auto) 0.02 (0.00-0.03) X10*3/uL Absolute Neuts (auto) 5.6 (2.0-8.3) x10*3/uL Absolute Nucleated RBC 0.000 (0.0-0.012) X10*3/uL Nucleated RBC % (auto) 0.0 (0.0-0.2) /100WBC Sodium 141 (135-145) mmol/L Potassium 3.6 (3.3-5.1) mmol/L Chloride 108 (96-108) mmol/L Carbon Dioxide 26 (22-29) mmol/L Anion Gap 11 L (12-20) BUN 13 (9-16) mg/dL Creatinine 0.65 (0.5-1.4) mg/dL Estim Creat Clear Calc 188.2 Estimated GFR > 60 Random Glucose 105 (60-115) mg/dL Calcium 8.8 (8.4-10.2) mg/dL Magnesium 2.2 (1.6-2.6) mg/dL Total Bilirubin 0.7 (0.0-1.0) mg/dL Direct Bilirubin 0.2 (0.0-0.5) mg/dL AST 21 (5-37) U/L ALT 18 (0-40) U/L Alkaline Phosphatase 45 (39-117) U/L Total Protein 5.8 L (6.5-8.0) g/dL Albumin 3.6 (3.5-5.0) g/dL Urine Color Urine Appearance Urine pH (5.0-9.0) Ur Specific [place] (1.005-1.025) Urine Protein (Neg-Trace) mg/dL Urine Glucose (UA) (Negative) mg/dL Urine Ketones (Negative) mg/dL Urine Blood (Negative) Urine Nitrite (Negative) Ur Leukocyte Esterase (Negative) Urine RBC (0-2) /HPF Urine WBC (0-5) /HPF Ur Squamous Epith Cells (0-2) /HPF Urine Bacteria (None Seen) Hyaline Casts (0-2) /LPF Urine Opiates Screen (Not Detect) Urine Fentanyl Screen (Not Detect) Ur Barbiturates Screen (Not Detect) Ur Phencyclidine Scrn (Not Detect) Ur Amphetamines Screen (Not Detect) U Benzodiazepines Scrn (Not Detect) Urine Cocaine Screen (Not Detect) U Marijuana (THC) Screen (Not Detect) Ethyl Alcohol < 10 mg/dL COVID-19 (LOS) Negative (Negative) COVID-19 Clin Com See Note 07/12/22 07/12/22 Range/Units 11:03 11:03 WBC (4.8-10.8) X10*3/uL RBC (4.60-5.80) X10*6/uL Hgb (14.0-18.0) g/dl Hct (42.0-52.0) % MCV (80.0-98.0) fL MCH (27.0-33.0) pg MCHC (31.0-36.0) g/dl RDW (11.0-16.0) % Plt Count (160-400) X10*3/uL MPV (9.4-12.4) fL Immature Gran % (Auto) (0.0-0.4) % Neut % (Auto) (45-73) % Lymph % (Auto) (20-40) % Grady % (Auto) (2-11) % Eos % (Auto) (0-4) % Baso % (Auto) (0-2) % Lymph # (Auto) (1.2-4.9) X10*3/uL Grady # (Auto) (0.1-1.2) X10*3/uL Eos # (Auto) (0.0-0.4) X10*3/uL Baso # (Auto) (0.0-0.2) X10*3/uL Abs Immat Gran (auto) (0.00-0.03) X10*3/uL Absolute Neuts (auto) (2.0-8.3) x10*3/uL Absolute Nucleated RBC (0.0-0.012) X10*3/uL Nucleated RBC % (auto) (0.0-0.2) /100WBC Sodium (135-145) mmol/L Potassium (3.3-5.1) mmol/L Chloride (96-108) mmol/L Carbon Dioxide (22-29) mmol/L Anion Gap (12-20) BUN (9-16) mg/dL Creatinine (0.5-1.4) mg/dL Estim Creat Clear Calc Estimated GFR Random Glucose (60-115) mg/dL Calcium (8.4-10.2) mg/dL Magnesium (1.6-2.6) mg/dL Total Bilirubin (0.0-1.0) mg/dL Direct Bilirubin (0.0-0.5) mg/dL AST (5-37) U/L ALT (0-40) U/L Alkaline Phosphatase (39-117) U/L Total Protein (6.5-8.0) g/dL Albumin (3.5-5.0) g/dL Urine Color Yellow Urine Appearance Turbid Urine pH 8.5 (5.0-9.0) Ur Specific [place] 1.020 (1.005-1.025) Urine Protein Trace (Neg-Trace) mg/dL Urine Glucose (UA) Negative (Negative) mg/dL Urine Ketones 15 (Negative) mg/dL Urine Blood Negative (Negative) Urine Nitrite Negative (Negative) Ur Leukocyte Esterase Small (1+) H (Negative) Urine RBC 0-2 (0-2) /HPF Urine WBC 11-20 H (0-5) /HPF Ur Squamous Epith Cells 0-2 (0-2) /HPF Urine Bacteria None Seen (None Seen) Hyaline Casts 0-2 (0-2) /LPF Urine Opiates Screen POSITIVE H (Not Detect) Urine Fentanyl Screen POSITIVE H (Not Detect) Ur Barbiturates Screen Not Detected (Not Detect) Ur Phencyclidine Scrn Not Detected (Not Detect) Ur Amphetamines Screen Not Detected (Not Detect) U Benzodiazepines Scrn Not Detected (Not Detect) Urine Cocaine Screen POSITIVE H (Not Detect) U Marijuana (THC) Screen POSITIVE H (Not Detect) Ethyl Alcohol mg/dL COVID-19 (LOS) (Negative) COVID-19 Clin Com <PRESTON Alva - Last Filed: 07/12/22 15:16> Lab Results 07/12/22 07/12/22 07/12/22 Range/Units 10:53 10:53 10:53 WBC 7.7 (4.8-10.8) X10*3/uL RBC 4.22 L (4.60-5.80) X10*6/uL Hgb 11.9 L (14.0-18.0) g/dl Hct 35.8 L (42.0-52.0) % MCV 84.8 (80.0-98.0) fL MCH 28.2 (27.0-33.0) pg MCHC 33.2 (31.0-36.0) g/dl RDW 13.4 (11.0-16.0) % Plt Count 228 (160-400) X10*3/uL MPV 9.1 L (9.4-12.4) fL Immature Gran % (Auto) 0.3 (0.0-0.4) % Neut % (Auto) 72.2 (45-73) % Lymph % (Auto) 21.5 (20-40) % Grady % (Auto) 4.9 (2-11) % Eos % (Auto) 0.6 (0-4) % Baso % (Auto) 0.5 (0-2) % Lymph # (Auto) 1.7 (1.2-4.9) X10*3/uL Grady # (Auto) 0.4 (0.1-1.2) X10*3/uL Eos # (Auto) 0.1 (0.0-0.4) X10*3/uL Baso # (Auto) 0.0 (0.0-0.2) X10*3/uL Abs Immat Gran (auto) 0.02 (0.00-0.03) X10*3/uL Absolute Neuts (auto) 5.6 (2.0-8.3) x10*3/uL Absolute Nucleated RBC 0.000 (0.0-0.012) X10*3/uL Nucleated RBC % (auto) 0.0 (0.0-0.2) /100WBC Sodium 141 (135-145) mmol/L Potassium 3.6 (3.3-5.1) mmol/L Chloride 108 (96-108) mmol/L Carbon Dioxide 26 (22-29) mmol/L Anion Gap 11 L (12-20) BUN 13 (9-16) mg/dL Creatinine 0.65 (0.5-1.4) mg/dL Estim Creat Clear Calc 188.2 Estimated GFR > 60 Random Glucose 105 (60-115) mg/dL Calcium 8.8 (8.4-10.2) mg/dL Magnesium 2.2 (1.6-2.6) mg/dL Total Bilirubin 0.7 (0.0-1.0) mg/dL Direct Bilirubin 0.2 (0.0-0.5) mg/dL AST 21 (5-37) U/L ALT 18 (0-40) U/L Alkaline Phosphatase 45 (39-117) U/L Total Protein 5.8 L (6.5-8.0) g/dL Albumin 3.6 (3.5-5.0) g/dL Urine Color Urine Appearance Urine pH (5.0-9.0) Ur Specific [place] (1.005-1.025) Urine Protein (Neg-Trace) mg/dL Urine Glucose (UA) (Negative) mg/dL Urine Ketones (Negative) mg/dL Urine Blood (Negative) Urine Nitrite (Negative) Ur Leukocyte Esterase (Negative) Urine RBC (0-2) /HPF Urine WBC (0-5) /HPF Ur Squamous Epith Cells (0-2) /HPF Urine Bacteria (None Seen) Hyaline Casts (0-2) /LPF Urine Opiates Screen (Not Detect) Urine Fentanyl Screen (Not Detect) Ur Barbiturates Screen (Not Detect) Ur Phencyclidine Scrn (Not Detect) Ur Amphetamines Screen (Not Detect) U Benzodiazepines Scrn (Not Detect) Urine Cocaine Screen (Not Detect) U Marijuana (THC) Screen (Not Detect) Ethyl Alcohol < 10 mg/dL COVID-19 (LOS) Negative (Negative) COVID-19 Clin Com See Note 07/12/22 07/12/22 Range/Units 11:03 11:03 WBC (4.8-10.8) X10*3/uL RBC (4.60-5.80) X10*6/uL Hgb (14.0-18.0) g/dl Hct (42.0-52.0) % MCV (80.0-98.0) fL MCH (27.0-33.0) pg MCHC (31.0-36.0) g/dl RDW (11.0-16.0) % Plt Count (160-400) X10*3/uL MPV (9.4-12.4) fL Immature Gran % (Auto) (0.0-0.4) % Neut % (Auto) (45-73) % Lymph % (Auto) (20-40) % [place]ady % (Auto) (2-11) % Eos % (Auto) (0-4) % Baso % (Auto) (0-2) % Lymph # (Auto) (1.2-4.9) X10*3/uL [place] # (Auto) (0.1-1.2) X10*3/uL Eos # (Auto) (0.0-0.4) X10*3/uL Baso # (Auto) (0.0-0.2) X10*3/uL Abs Immat Gran (auto) (0.00-0.03) X10*3/uL Absolute Neuts (auto) (2.0-8.3) x10*3/uL Absolute Nucleated RBC (0.0-0.012) X10*3/uL Nucleated RBC % (auto) (0.0-0.2) /100WBC Sodium (135-145) mmol/L Potassium (3.3-5.1) mmol/L Chloride (96-108) mmol/L Carbon Dioxide (22-29) mmol/L Anion Gap (12-20) BUN (9-16) mg/dL Creatinine (0.5-1.4) mg/dL Estim Creat Clear Calc Estimated GFR Random Glucose (60-115) mg/dL Calcium (8.4-10.2) mg/dL Magnesium (1.6-2.6) mg/dL Total Bilirubin (0.0-1.0) mg/dL Direct Bilirubin (0.0-0.5) mg/dL AST (5-37) U/L ALT (0-40) U/L Alkaline Phosphatase (39-117) U/L Total Protein (6.5-8.0) g/dL Albumin (3.5-5.0) g/dL Urine Color Yellow Urine Appearance Turbid Urine pH 8.5 (5.0-9.0) Ur Specific [place] 1.020 (1.005-1.025) Urine Protein Trace (Neg-Trace) mg/dL Urine Glucose (UA) Negative (Negative) mg/dL Urine Ketones 15 (Negative) mg/dL Urine Blood Negative (Negative) Urine Nitrite Negative (Negative) Ur Leukocyte Esterase Small (1+) H (Negative) Urine RBC 0-2 (0-2) /HPF Urine WBC 11-20 H (0-5) /HPF Ur Squamous Epith Cells 0-2 (0-2) /HPF Urine Bacteria None Seen (None Seen) Hyaline Casts 0-2 (0-2) /LPF Urine Opiates Screen POSITIVE H (Not Detect) Urine Fentanyl Screen POSITIVE H (Not Detect) Ur Barbiturates Screen Not Detected (Not Detect) Ur Phencyclidine Scrn Not Detected (Not Detect) Ur Amphetamines Screen Not Detected (Not Detect) U Benzodiazepines Scrn Not Detected (Not Detect) Urine Cocaine Screen POSITIVE H (Not Detect) U Marijuana (THC) Screen POSITIVE H (Not Detect) Ethyl Alcohol mg/dL COVID-19 (LOS) (Negative) COVID-19 Clin Com <Cipriano Rushing MD - Last Filed: 07/13/22 07:57> Independent Historian Clinical information obtained from an independent historian. History obtained from or confirmed by: EMS <PRESTON Alva - Last Filed: 07/12/22 15:16> External Record Review External record reviewed: Outpatient record, Prior outpatient labs and Prior outpatient radiology <PRESTON Alva - Last Filed: 07/12/22 15:16> Prescription Management I considered prescription management with: Other (methadone) <PRESTON Alva - Last Filed: 07/12/22 15:16> Chronic Conditions Patient?s care impacted by: Other (polysubstance abuse) <PRESTON Alva - Last Filed: 07/12/22 15:16> Social Determinants Patient?s care significantly limited by Social Determinants of Health including: Inadequate housing, Alcoholism and drug addiction in family, Unemployment and Other Social Determinant of Health <PRESTON Alva - Last Filed: 07/12/22 15:16> Critical Care Time Critical Care Time Critical Care Time: No <PRESTON Alva - Last Filed: 07/12/22 15:16> Discharge Plan Discharge Clinical Impression: Suicidal ideation, Polysubstance abuse <PRESTON Alva - Last Filed: 07/12/22 15:16> Patient Disposition: Still a Patient <PRESTON Alva - Last Filed: 07/12/22 15:16> Prescriptions: No Action No Known Home Meds <PRESTON Alva - Last Filed: 07/12/22 15:16> Interventions: [place]-Suicide Risk Severity Scale Last Done: 07/13/22 03:17 <PRESTON Alva Last Filed: 07/12/22 15:16>
[2022-07-12 10:38] VITALS: BP 140/68; BP 188/100; PULSE 68; PULSE 81; RESP 18; TEMP 36.6; O2SAT 98; O2SAT 99; BMI 32.5
[2022-07-12 10:57] LABS: MANUAL DIFF FLAG NO
[2022-07-12 11:03] LABS: Basophils Percent Auto 0.5 % (0-2); Eosinophils Absolute Auto 0.1 X10*3/uL (0.0-0.4); Eosinophils Percent Auto 0.6 % (0-4); Hematocrit 35.8 % (42.0-52.0); Hemoglobin 11.9 g/dl (14.0-18.0); Imm Gran Abs Auto 0.02 X10*3/uL (0.00-0.03); Imm Gran Pct Auto 0.3 % (0.0-0.4); Lymphocytes Absolute Auto 1.7 X10*3/uL (1.2-4.9); Lymphocytes Percent Auto 21.5 % (20-40); Mean Corpuscular HGB Conc 33.2 g/dl (31.0-36.0); Mean Corpuscular Hemoglobin 28.2 pg (27.0-33.0); Mean Corpuscular Volume 84.8 fL (80.0-98.0); Mean Platelet Volume 9.1 fL (9.4-12.4); Monocytes Absolute Auto 0.4 X10*3/uL (0.1-1.2); Monocytes Percent Auto 4.9 % (2-11); Neutrophils Absolute Auto 5.6 x10*3/uL (2.0-8.3); Neutrophils Percent Auto 72.2 % (45-73); Platelet Count 228 X10*3/uL (160-400); Red Blood Count 4.22 X10*6/uL (4.60-5.80); Red Cell Distribution Width 13.4 % (11.0-16.0); White Blood Count 7.7 X10*3/uL (4.8-10.8)
[2022-07-12 11:19] LABS: COVID-19 Test Negative (Negative); IDNOW Serial# BCCEAD1C
[2022-07-12 11:21] LABS: Appearance Urine Turbid; Color Urine Yellow; Glucose Urine UA Negative (Negative); Leukocyte Esterase Urine Small (1+) (Negative); Nitrite Urine Negative (Negative); PH 8.5 (5.0-9.0); UMIC TRIGGER UACC YES; Urine Blood Negative (Negative); Urine Ketones 15 mg/dL (Negative); Urine Protein Trace mg/dL (Neg-Trace)
[2022-07-12 11:22] LABS: Alanine Aminotransferase 18 U/L (0-40); Albumin Level 3.6 g/dL (3.5-5.0); Alkaline Phosphatase 45 U/L (39-117); Anion Gap 11 (12-20); Aspartate Amino Transferase 21 U/L (5-37); Bilirubin Direct 0.2 mg/dL (0.0-0.5); Bilirubin Total 0.7 mg/dL (0.0-1.0); Blood Urea Nitrogen 13 mg/dL (9-16); Calcium 8.8 mg/dL (8.4-10.2); Carbon Dioxide 26 mmol/L (22-29); Chloride 108 mmol/L (96-108); Creatinine Clr Calc Pharmacy 188.2; Estimated Glomerular Filt Rate > 60; Ethanol < 10 mg/dL; Glucose Random 105 mg/dL (60-115); Magnesium 2.2 mg/dL (1.6-2.6); Potassium 3.6 mmol/L (3.3-5.1); Sodium 141 mmol/L (135-145); Total Protein 5.8 g/dL (6.5-8.0)
[2022-07-12 11:23] LABS: Bacteria Urine None Seen (None Seen); Hyaline Casts Urine 0-2 /LPF (0-2); RBC Urine 0-2 /HPF (0-2); Squamous Epithelial Cell Urine 0-2 /HPF (0-2); UACC Culture Trigger YES
[2022-07-12 11:30] LABS: Amphetamine Screen Urine Not Detected (Not Detect); Barbiturates, Urine Not Detected (Not Detect); Benzodiazepines Screen Urine Not Detected (Not Detect); Cannabinoid Screen Urine POSITIVE (Not Detect); Cocaine Screen Urine POSITIVE (Not Detect); Fentanyl, urine POSITIVE (Not Detect); Opiate Screen Urine POSITIVE (Not Detect); Phencyclidine Screen Urine Not Detected (Not Detect)
[2022-07-12] MEDS: methADONE HCl 20 MG/2 ML ORAL.CONC 30 MG PO (12:16)
[2022-07-12 19:51] VITALS: PULSE 50
[2022-07-12 21:14] VITALS: BP 143/82; PULSE 67; RESP 17; TEMP 37; O2SAT 99
[2022-07-12] MEDS: Buprenorphine/Naloxone 8/2 mg FILM 1 FILM SUBLINGUAL (21:37)
[2022-07-12 22:43] VITALS: BP 156/100; PULSE 60; RESP 17; TEMP 37.1; O2SAT 97
[2022-07-12] MEDS: cloNIDine HCL 0.1 MG TABLET PO (22:43)
--- NOTE | 2022-07-13 03:19 | PC.NURSE ---
Patient currently in bed appears sleeping, no distress observed/reported, Suboxone 8/2 mg administered@ 2136 as ordered and Clonidine 0.1 mg @ 2242 with + effect, behavior non concerning but may escalate, med rec completed/off his medication, will continue to monitor.
[2022-07-13 04:15] VITALS: BP 148/92; PULSE 68; RESP 17; TEMP 36.6; O2SAT 98
--- NOTE | 2022-07-13 06:21 | PC.NURSE ---
Patient slept through the night, no distress observed/reported, VSS, disposition per care team voluntary inpatient bed search, behavior non concerning, will continue to monitor.
[2022-07-13 09:23] VITALS: BP 144/86; PULSE 51; RESP 12; TEMP 37.3; O2SAT 100
--- NOTE | 2022-07-13 09:25 | PC.NURSE ---
Patient scheduled to get suboxone 10/06. Pulse is 51 bpm, Dr. Rushing notified and stated that it was ok to give the medication.
[2022-07-13] MEDS: Buprenorphine/Naloxone 8/2 mg FILM 1 FILM SUBLINGUAL ×3 (09:27→18:49)
--- NOTE | 2022-07-13 13:15 | MHC.CARE ---
Pt signed CV and was provided notice of rights.
--- NOTE | 2022-07-13 14:57 | MHC.RECOVRN ---
Met with pt in [facility] to discuss Suboxone induction. Pt received 30 mg methadone yesterday and 8 mg Suboxone last night. Pt denies any precipitated withdrawal. Reports feeling a little better after methadone and about the same after Suboxone. Pt received Suboxone, 8 mg, this morning with positive effect. Pt would like to reconnect with the [facility] and continue Suboxone after dc. Discussed with Laisha Huff APRN. Pt to return to 8 mg TID dosing. RN aware.
[2022-07-13 16:14] VITALS: BP 108/70; PULSE 55; RESP 16; TEMP 36.8; O2SAT 97
[2022-07-13 16:46] VITALS: BP 164/88; PULSE 60
--- NOTE | 2022-07-13 18:32 | PC.ADMIT ---
Pt is a 31 year old trans woman who presented to [facility] on a cv status from [facility]. Pt is covid - tox screen + for opiods, cocaine, THC, fentanyl. Per chart review, pt was last admitted to [facility] in 03/2022. Pt is known to [facility] from prior behavioral health interventions. pt denied current HI/AH/VH Pt has hx of SI, cutting, burning and intentional overdose. During admit, pt answered yes and no questions. Pt was pleasant and immediately wanted to go to bed. start treatment plan and monitor for safety. Provider was called and notified.
[2022-07-13] MEDS: hydrOXYzine HCL 25 MG TABLET PO (22:00)
[2022-07-14 08:00] VITALS: PULSE 80
[2022-07-14] MEDS: Buprenorphine/Naloxone 8/2 mg FILM 1 FILM SUBLINGUAL ×3 (08:31→19:57)
[2022-07-14 08:36] VITALS: BP 120/70; PULSE 80; RESP 18; TEMP 37.2; O2SAT 98
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
[2022-07-14] MEDS: Escitalopram Oxalate 5 MG TABLET PO (12:15)
[2022-07-14] MEDS: lamoTRIgine 25 MG TABLET PO (12:15)
[2022-07-14 16:00] VITALS: PULSE 76
[2022-07-14 18:00] VITALS: BP 166/96; PULSE 76; RESP 20; TEMP 36.6; O2SAT 98
[2022-07-14] MEDS: Prazosin HCL 1 MG CAPSULE PO (19:53)
[2022-07-14] MEDS: hydrOXYzine HCL 25 MG TABLET PO (19:53)
[2022-07-15] MEDS: Escitalopram Oxalate 10 MG TABLET PO (08:25)
[2022-07-15] MEDS: estradioL 0.5 MG TABLET 1 MG PO (08:25)
[2022-07-15] MEDS: Spironolactone 25 MG TABLET PO (08:25)
[2022-07-15] MEDS: Buprenorphine/Naloxone 8/2 mg FILM 1 FILM SUBLINGUAL ×3 (08:25→18:55)
[2022-07-15] MEDS: lamoTRIgine 25 MG TABLET PO (08:26)
[2022-07-15 08:30] VITALS: BP 140/89; PULSE 71; RESP 18; TEMP 37.2; O2SAT 99
--- NOTE | 2022-07-15 10:06 | P.PNPSI_ITS ---
Subjective Subjective Date of Service: 07/15/22 Reason For Visit: Bipolar Disorder type 2 Opiate /Cocaine Personalii Interim History: Met with patient; discussed with team Patient remains very depressed and feeling suicidal. He is grateful that medications have been restarted. Patient says he has tolerated Adderall in the past and agrees to have that restarted as well. Patient reports history of bilateral tibial torsion for which she uses gabapentin; says that this source of pain has often fueled substance abuse Discussed CSS; patient said he still having a hard time focusing his thoughts but will consider Mental Status Exam Mental Status Exam Narrative: Pt is alert and oriented; behavior is cooperative, calm; patient is not in distress; dressed in hospital attire with improved hygiene;, unkempt hair, scruffy facial hair; mood is described as shitty and affect congruent, downcast; eye contact avoidant; Speech is a little soft, slowed; normal prosody; psychomotor retardation present; thought process is organized and goal directed; Thought content is on depressive, treatment; otherwise pertinent to relevant topics and without any delusional content, paranoid ideations or grandiosity; denies any SI/HI. There is no evidence of perceptual disturbance. Patients insight and judgment are impaired Diagnostics Vital Signs (24Hr): Vital Signs - 24 hr 07/14/22 18:00 07/15/22 08:30 Temperature 98 F 98.9 F Pulse Rate 76 71 Respiratory Rate 20 18 Blood Pressure 166/96 H 140/89 H Pulse Oximetry 98 99 Oxygen Delivery Method Room Air Room Air BMI result Body Mass Index 32.5 Labs 07/12/22 10:53 07/12/22 10:53 Medications Medications Current Medications Acetaminophen (Acetaminophen 325 Mg Tablet) 650 mg PO Q6H PRN PRN Reason: Headache/Pain Mild Scale (1-3) Al Hydroxide/Mg Hydroxide (Magnesium Hydrox/Alum Hydrox 30 Ml Oral.Susp) 30 ml PO Q6H PRN PRN Reason: Heartburn/Nausea Buprenorphine/Naloxone (Buprenorphine/Naloxone 8/2 Mg Film) 1 film SUBLINGUAL TID [facility] Last Admin: 07/15/22 08:25 Dose: 1 film Escitalopram Oxalate (Escitalopram Oxalate 10 Mg Tablet) 10 mg PO DAILY [facility] Last Admin: 07/15/22 08:25 Dose: 10 mg Estradiol (Estradiol 0.5 Mg Tablet) 1 mg PO DAILY [facility] Last Admin: 07/15/22 08:25 Dose: 1 mg Hydroxyzine HCl (Hydroxyzine Hcl 25 Mg Tablet) 25 mg PO Q6H PRN PRN Reason: Anxiety Last Admin: 07/14/22 19:53 Dose: 25 mg Lamotrigine (Lamotrigine 25 Mg Tablet) 25 mg PO DAILY [facility] Last Admin: 07/15/22 08:26 Dose: 25 mg Magnesium Hydroxide (Milk Of Magnesia 30 Ml Oral.Susp) 30 ml PO DAILY PRN PRN Reason: Constipation Nicotine Polacrilex (Nicotine Polacrilex 2 Mg Gum) 4 mg BUCCAL Q2H PRN PRN Reason: Nicotine Cravings Prazosin HCl (Prazosin Hcl 1 Mg Capsule) 1 mg PO BEDTIME [facility]; Protocol Last Admin: 07/14/22 19:53 Dose: 1 mg Spironolactone (Spironolactone 25 Mg Tablet) 25 mg PO DAILY [facility]; Protocol Last Admin: 07/15/22 08:25 Dose: 25 mg Trazodone HCl (Trazodone Hcl 50 Mg Tablet) 50 mg PO BEDTIME MRX1 PRN PRN Reason: Insomnia Allergies Allergies Allergy/AdvReac Type Severity Reaction Status Date / Time aripiprazole [From ABILIY] Allergy Unknown UNKNOWN Verified 06/04/22 11:40 Assessment & Plan Assessment & Plan (1) MDD (major depressive disorder), recurrent episode, severe: Status: Acute Code(s): F33.2 - Major depressive disorder, recurrent severe without psychotic features (2) PTSD (post-traumatic stress disorder): Status: Acute Code(s): F43.10 - Post-traumatic stress disorder, unspecified (3) Borderline personality disorder: Status: Acute Code(s): F60.3 - Borderline personality disorder (4) ADHD: Status: Acute Code(s): F90.9 - Attention-deficit hyperactivity disorder, unspecified type (5) Opioid use disorder, moderate, dependence: Status: Acute Code(s): F11.20 - Opioid dependence, uncomplicated (6) Cocaine use disorder, moderate, dependence: Status: Acute Code(s): F14.20 - Cocaine dependence, uncomplicated Plan Patient is a 31-year-old trans woman with history of PTSD, depression, cocaine and opioid addiction who presents for worsening depression and suicidality with intentional overdose in the face of being off his medication for a couple months. -patient reports that on medication he feels good enough; wants to get back on all home medications. Patient still has suicidal ideation but feels safe on the unit. Denies any alcohol use/abuse. Patient was restarted on Suboxone in the emergency room and he denies any precipitated withdrawal and that withdrawal symptoms are mostly resolved. Hospital course 07/15 patient remains with severe depression and is suicidal; hopefully is medications are restarted and titrated depression will tristian. Patient recently attempted suicide by overdose; patient requires continued inpatient level of care for safety and medication management and is at significant risk for self- harm were he to be discharged at this time Plan: CV Q 15 minute checks Will add Adderall XL 30mg daily; pt normally on Vyvanse Continue Suboxone 8/2 mg t.i.d. Continue Lexapro 10 mg daily increase to prazosin 2 mg q.h.s. (normally on 2 mg) Continue Lamictal 25 mg daily increase to estradiol 2 mg TID (outpt dose) Increase to spironolactone 50mg daily; eventually titrate to 50 mg b.i.d. 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
[2022-07-15 12:31] VITALS: BMI 31.0
[2022-07-15] MEDS: Dextroamphetamine/Amphetamine XR 10 MG CAP.ER.24H 30 MG PO (12:32)
[2022-07-15 16:00] VITALS: PULSE 90
[2022-07-15 16:48] VITALS: BP 157/86; PULSE 90; RESP 18; TEMP 36.1
[2022-07-15] MEDS: traZODone HCL 50 MG TABLET PO (18:54)
[2022-07-15] MEDS: Prazosin HCL 1 MG CAPSULE PO (18:54)
[2022-07-15] MEDS: hydrOXYzine HCL 25 MG TABLET PO (18:55)
[2022-07-16 08:00] VITALS: PULSE 110
[2022-07-16 08:25] VITALS: BP 152/99; PULSE 110; RESP 16; TEMP 36.9; O2SAT 99
[2022-07-16] MEDS: Dextroamphetamine/Amphetamine XR 10 MG CAP.ER.24H 30 MG PO (08:30)
[2022-07-16] MEDS: Spironolactone 25 MG TABLET PO (08:30)
[2022-07-16] MEDS: Escitalopram Oxalate 10 MG TABLET PO (08:30)
[2022-07-16] MEDS: Buprenorphine/Naloxone 8/2 mg FILM 1 FILM SUBLINGUAL ×3 (08:31→20:14)
[2022-07-16] MEDS: estradioL 0.5 MG TABLET 1 MG PO ×3 (08:31→20:14)
[2022-07-16] MEDS: lamoTRIgine 25 MG TABLET PO (08:31)
--- NOTE | 2022-07-16 10:23 | P.PNPSI_ITS ---
Subjective Subjective Date of Service: 07/16/22 Reason For Visit: Bipolar Disorder type 2 Opiate /Cocaine Personalii Interim History: Met with patient; discussed with team Pt with anxiety sleep disturbance Medication Compliance: Yes Mental Status Exam Mental Status Exam Narrative: Pt is alert and oriented; behavior is cooperative, calm; patient is not in distress; dressed in hospital attire with improved hygiene;, unkempt hair, scruffy facial hair; mood is described as shitty and affect congruent, downcast; eye contact avoidant; Speech is a little soft, slowed; normal prosody; psychomotor retardation present; thought process is organized and goal directed; Thought content is on depressive, treatment; otherwise pertinent to relevant topics and without any delusional content, paranoid ideations or grandiosity; denies any SI/HI. There is no evidence of perceptual disturbance. Patients insight and judgment are impaired Diagnostics Vital Signs (24Hr): Vital Signs - 24 hr 07/15/22 16:48 07/16/22 08:25 Temperature 97.0 F 98.5 F Pulse Rate 90 110 H Respiratory Rate 18 16 Blood Pressure 157/86 H 152/99 H Pulse Oximetry 99 Oxygen Delivery Method Room Air Room Air BMI result Body Mass Index 31.0 Labs 07/12/22 10:53 07/12/22 10:53 Medications Medications Current Medications Acetaminophen (Acetaminophen 325 Mg Tablet) 650 mg PO Q6H PRN PRN Reason: Headache/Pain Mild Scale (1-3) Al Hydroxide/Mg Hydroxide (Magnesium Hydrox/Alum Hydrox 30 Ml Oral.Susp) 30 ml PO Q6H PRN PRN Reason: Heartburn/Nausea Amphetamine/Dextroamphetamine (Dextroamphetamine/Amphetamine Xr 10 Mg Cap .Er.24h) 30 mg PO DAILY [facility] Last Admin: 07/16/22 08:30 Dose: 30 mg Buprenorphine/Naloxone (Buprenorphine/Naloxone 8/2 Mg Film) 1 film SUBLINGUAL TID [facility] Last Admin: 07/16/22 08:31 Dose: 1 film Escitalopram Oxalate (Escitalopram Oxalate 10 Mg Tablet) 10 mg PO DAILY [facility] Last Admin: 07/16/22 08:30 Dose: 10 mg Estradiol (Estradiol 0.5 Mg Tablet) 1 mg PO DAILY [facility] Last Admin: 07/16/22 08:31 Dose: 1 mg Hydroxyzine HCl (Hydroxyzine Hcl 25 Mg Tablet) 25 mg PO Q6H PRN PRN Reason: Anxiety Last Admin: 07/15/22 18:55 Dose: 25 mg Lamotrigine (Lamotrigine 25 Mg Tablet) 25 mg PO DAILY [facility] Last Admin: 07/16/22 08:31 Dose: 25 mg Magnesium Hydroxide (Milk Of Magnesia 30 Ml Oral.Susp) 30 ml PO DAILY PRN PRN Reason: Constipation Nicotine Polacrilex (Nicotine Polacrilex 2 Mg Gum) 4 mg BUCCAL Q2H PRN PRN Reason: Nicotine Cravings Prazosin HCl (Prazosin Hcl 1 Mg Capsule) 1 mg PO BEDTIME [facility]; Protocol Last Admin: 07/15/22 18:54 Dose: 1 mg Spironolactone (Spironolactone 25 Mg Tablet) 25 mg PO DAILY [facility]; Protocol Last Admin: 07/16/22 08:30 Dose: 25 mg Trazodone HCl (Trazodone Hcl 50 Mg Tablet) 50 mg PO BEDTIME MRX1 PRN PRN Reason: Insomnia Last Admin: 07/15/22 18:54 Dose: 50 mg Allergies Allergies Allergy/AdvReac Type Severity Reaction Status Date / Time [facility] Allergy Unknown UNKNOWN Verified 06/04/22 11:40 Assessment & Plan Assessment & Plan (1) MDD (major depressive disorder), recurrent episode, severe: Status: Acute Code(s): F33.2 - Major depressive disorder, recurrent severe without psychotic features (2) PTSD (post-traumatic stress disorder): Status: Acute Code(s): F43.10 - Post-traumatic stress disorder, unspecified (3) Borderline personality disorder: Status: Acute Code(s): F60.3 - Borderline personality disorder (4) ADHD: Status: Acute Code(s): F90.9 - Attention-deficit hyperactivity disorder, unspecified type (5) Opioid use disorder, moderate, dependence: Status: Acute Code(s): F11.20 - Opioid dependence, uncomplicated (6) Cocaine use disorder, moderate, dependence: Status: Acute Code(s): F14.20 - Cocaine dependence, uncomplicated Plan Patient is a 31-year-old trans woman with history of PTSD, depression, cocaine and opioid addiction who presents for worsening depression and suicidality with intentional overdose in the face of being off his medication for a couple months. -patient reports that on medication he feels good enough; wants to get back on all home medications. Patient still has suicidal ideation but feels safe on the unit. Denies any alcohol use/abuse. Patient was restarted on Suboxone in the emergency room and he denies any precipitated withdrawal and that withdrawal symptoms are mostly resolved. Hospital course 07/15 patient remains with severe depression and is suicidal; hopefully is medications are restarted and titrated depression will tristian. Patient recently attempted suicide by overdose; patient requires continued inpatient level of care for safety and medication management and is at significant risk for self- harm were he to be discharged at this time Plan: CV Q 15 minute checks Will add Adderall XL 30mg daily; pt normally on Vyvanse Continue Suboxone 8/2 mg t.i.d. Continue Lexapro 10 mg daily increase to prazosin 2 mg q.h.s. (normally on 2 mg) Continue Lamictal 25 mg daily increase to estradiol 2 mg TID (outpt dose) Increase to spironolactone 50mg daily; eventually titrate to 50 mg b.i.d. 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
[2022-07-16] MEDS: Nicotine 21 MG PATCH.TD24 TRANSDERMA (10:53)
[2022-07-16] MEDS: Prazosin HCL 1 MG CAPSULE 2 MG PO (20:13)
[2022-07-16 20:15] VITALS: BP 127/73; PULSE 99
[2022-07-16] MEDS: hydrOXYzine HCL 25 MG TABLET PO (20:22)
[2022-07-17] MEDS: traZODone HCL 50 MG TABLET PO (00:37)
[2022-07-17] MEDS: estradioL 0.5 MG TABLET 1 MG PO ×3 (08:22→20:49)
[2022-07-17] MEDS: Buprenorphine/Naloxone 8/2 mg FILM 1 FILM SUBLINGUAL ×3 (08:22→20:49)
[2022-07-17] MEDS: Nicotine 21 MG PATCH.TD24 TRANSDERMA (08:22)
[2022-07-17] MEDS: Escitalopram Oxalate 10 MG TABLET PO (08:22)
[2022-07-17] MEDS: lamoTRIgine 25 MG TABLET PO (08:23)
[2022-07-17] MEDS: Spironolactone 25 MG TABLET PO (08:23)
[2022-07-17] MEDS: Dextroamphetamine/Amphetamine XR 10 MG CAP.ER.24H 30 MG PO (08:23)
[2022-07-17 08:27] VITALS: BP 104/50; PULSE 68; RESP 18; TEMP 37.1; O2SAT 98
--- NOTE | 2022-07-17 11:45 | HO.PSYCHPN ---
Subjective Subjective Date of Service: 07/17/22 Reason For Visit: Bipolar Disorder type 2 Opiate /Cocaine Personalii Interim History: Met with patient; discussed with team Patient reports feeling some improvement. She is asking about increase in her Prazosin because she is having nightmares and difficulty sleeping. She reports being on up to 7 mg Prazosin at . She denies SI today. She is hopeful she will improve. Tolerating medications well. Review of Systems Review of Systems Yes all other systems are reviewed and are negative Mental Status Exam Mental Status Exam Narrative: Pt is alert and oriented; behavior is cooperative, calm; patient is not in distress; dressed in hospital attire with improved hygiene;, unkempt hair, scruffy facial hair; mood is described as shitty and affect congruent, downcast; eye contact avoidant; Speech is a little soft, slowed; normal prosody; psychomotor retardation present; thought process is organized and goal directed; Thought content is on depressive, treatment; otherwise pertinent to relevant topics and without any delusional content, paranoid ideations or grandiosity; denies any SI/HI. There is no evidence of perceptual disturbance. Patients insight and judgment are impaired Diagnostics Vital Signs (24Hr): Vital Signs - 24 hr 07/16/22 20:15 07/17/22 08:27 Temperature 98.8 F Pulse Rate 99 68 Respiratory Rate 18 Blood Pressure 127/73 104/50 L Pulse Oximetry 98 Oxygen Delivery Method Room Air BMI result Body Mass Index 31.0 Labs 07/12/22 10:53 07/12/22 10:53 Medications Medications Current Medications Acetaminophen (Acetaminophen 325 Mg Tablet) 650 mg PO Q6H PRN PRN Reason: Headache/Pain Mild Scale (1-3) Al Hydroxide/Mg Hydroxide (Magnesium Hydrox/Alum Hydrox 30 Ml Oral.Susp) 30 ml PO Q6H PRN PRN Reason: Heartburn/Nausea Amphetamine/Dextroamphetamine (Dextroamphetamine/Amphetamine Xr 10 Mg Cap.Er.24h) 30 mg PO DAILY [facility] Last Admin: 07/17/22 08:23 Dose: 30 mg Buprenorphine/Naloxone (Buprenorphine/Naloxone 8/2 Mg Film) 1 film SUBLINGUAL TID [facility] Last Admin: 07/17/22 08:22 Dose: 1 film Escitalopram Oxalate (Escitalopram Oxalate 10 Mg Tablet) 10 mg PO DAILY [facility] Last Admin: 07/17/22 08:22 Dose: 10 mg Estradiol (Estradiol 0.5 Mg Tablet) 1 mg PO TID [facility] Last Admin: 07/17/22 08:22 Dose: 1 mg Hydroxyzine HCl (Hydroxyzine Hcl 25 Mg Tablet) 25 mg PO Q6H PRN PRN Reason: Anxiety Last Admin: 07/16/22 20:22 Dose: 25 mg Lamotrigine (Lamotrigine 25 Mg Tablet) 25 mg PO DAILY [facility] Last Admin: 07/17/22 08:23 Dose: 25 mg Magnesium Hydroxide (Milk Of Magnesia 30 Ml Oral.Susp) 30 ml PO DAILY PRN PRN Reason: Constipation Nicotine (Nicotine 21 Mg Patch.Td24) 21 mg TRANSDERMA DAILY [facility] Last Admin: 07/17/22 08:22 Dose: 21 mg Nicotine Polacrilex (Nicotine Polacrilex 2 Mg Gum) 4 mg BUCCAL Q2H PRN PRN Reason: Nicotine Cravings Prazosin HCl (Prazosin Hcl 1 Mg Capsule) 2 mg PO BEDTIME [facility]; Protocol Last Admin: 07/16/22 20:13 Dose: 2 mg Spironolactone (Spironolactone 25 Mg Tablet) 25 mg PO DAILY [facility]; Protocol Last Admin: 07/17/22 08:23 Dose: 25 mg Trazodone HCl (Trazodone Hcl 50 Mg Tablet) 50 mg PO BEDTIME MRX1 PRN PRN Reason: Insomnia Last Admin: 07/17/22 00:37 Dose: 50 mg Allergies Allergies Allergy/AdvReac Type Severity Reaction Status Date / Time [facility] Allergy Unknown UNKNOWN Verified 06/04/22 11:40 Assessment & Plan Assessment & Plan (1) MDD (major depressive disorder), recurrent episode, severe: Status: Acute Code(s): F33.2 - Major depressive disorder, recurrent severe without psychotic features (2) PTSD (post-traumatic stress disorder): Status: Acute Code(s): F43.10 - Post-traumatic stress disorder, unspecified (3) Borderline personality disorder: Status: Acute Code(s): F60.3 - Borderline personality disorder (4) ADHD: Status: Acute Code(s): F90.9 - Attention-deficit hyperactivity disorder, unspecified type (5) Opioid use disorder, moderate, dependence: Status: Acute Code(s): F11.20 - Opioid dependence, uncomplicated (6) Cocaine use disorder, moderate, dependence: Status: Acute Code(s): F14.20 - Cocaine dependence, uncomplicated Plan Patient is a 31-year-old trans woman with history of PTSD, depression, cocaine and opioid addiction who presents for worsening depression and suicidality with intentional overdose in the face of being off his medication for a couple months. -patient reports that on medication he feels good enough; wants to get back on all home medications. Patient still has suicidal ideation but feels safe on the unit. Denies any alcohol use/abuse. Patient was restarted on Suboxone in the emergency room and he denies any precipitated withdrawal and that withdrawal symptoms are mostly resolved. Hospital course 07/15 patient remains with severe depression and is suicidal; hopefully is medications are restarted and titrated depression will tristian. Patient recently attempted suicide by overdose; patient requires continued inpatient level of care for safety and medication management and is at significant risk for self-harm were he to be discharged at this time Plan: CV Q 15 minute checks Will add Adderall XL 30mg daily; pt normally on Vyvanse Continue Suboxone 8/2 mg t.i.d. Continue Lexapro 10 mg daily increase to prazosin 2 mg q.h.s. (normally on 2 mg) Continue Lamictal 25 mg daily increase to estradiol 2 mg TID (outpt dose) Increase to spironolactone 50mg daily; eventually titrate to 50 mg b.i.d. Will consider restarting gabapentin; pt says for b/l tibial torsion, congenital Patient normally on Vyvanse however this is not on formula 07/17: Increase Prazosin to 4 mg HS tonight and 5 mg HS tomorrow if tolerated. Otherwise continue current tx plan. Reason for continued inpatient stay Substantial Risk for: harm to self and rapid decompensation Time Spent With Patient Time: Total time managing care of this patient today ____ minutes.
[2022-07-17 16:00] VITALS: PULSE 99
[2022-07-17 20:44] VITALS: BP 132/71; PULSE 99; RESP 16; TEMP 36.6; O2SAT 100
[2022-07-17] MEDS: hydrOXYzine HCL 25 MG TABLET PO (20:49)
[2022-07-17] MEDS: Prazosin HCL 1 MG CAPSULE 4 MG PO (20:49)
[2022-07-17] MEDS: Nicotine Polacrilex 2 MG GUM 4 MG BUCCAL (23:19)
[2022-07-18 08:45] VITALS: BP 143/82; PULSE 98; RESP 16; TEMP 36.5; O2SAT 99
[2022-07-18] MEDS: Nicotine 21 MG PATCH.TD24 TRANSDERMA (09:08)
[2022-07-18] MEDS: Escitalopram Oxalate 10 MG TABLET PO (09:08)
[2022-07-18] MEDS: Spironolactone 25 MG TABLET PO (09:08)
[2022-07-18] MEDS: lamoTRIgine 25 MG TABLET PO (09:08)
[2022-07-18] MEDS: Dextroamphetamine/Amphetamine XR 10 MG CAP.ER.24H 30 MG PO (09:08)
[2022-07-18] MEDS: estradioL 0.5 MG TABLET 1 MG PO ×3 (09:08→19:59)
[2022-07-18] MEDS: Buprenorphine/Naloxone 8/2 mg FILM 1 FILM SUBLINGUAL ×3 (09:09→19:59)
--- NOTE | 2022-07-18 10:28 | HO.PSYCHPN ---
Subjective Subjective Date of Service: 07/18/22 Reason For Visit: Bipolar Disorder type 2 Opiate /Cocaine Personalii Interim History: Met with patient; discussed with team. She is isolative. Patient reports feeling some improvement. She tolerated increasing Prazosin and it was helpful. She will be further titrated to 5 mg tonight. She denies SI today. She is hopeful she will improve. Tolerating medications well. Review of Systems Review of Systems Yes all other systems are reviewed and are negative Mental Status Exam Mental Status Exam Narrative: Pt is alert and oriented; behavior is cooperative, calm; patient is not in distress; dressed in hospital attire with improved hygiene;, unkempt hair, scruffy facial hair; mood is described as shitty and affect congruent, downcast; eye contact avoidant; Speech is a little soft, slowed; normal prosody; psychomotor retardation present; thought process is organized and goal directed; Thought content is on depressive, treatment; otherwise pertinent to relevant topics and without any delusional content, paranoid ideations or grandiosity; denies any SI/HI. There is no evidence of perceptual disturbance. Patients insight and judgment are impaired Diagnostics Vital Signs (24Hr): Vital Signs - 24 hr 07/17/22 20:44 Temperature 98 F Pulse Rate 99 Respiratory Rate 16 Blood Pressure 132/71 Pulse Oximetry 100 Oxygen Delivery Method Room Air BMI result Body Mass Index 31.0 Labs 07/12/22 10:53 07/12/22 10:53 Medications Medications Current Medications Acetaminophen (Acetaminophen 325 Mg Tablet) 650 mg PO Q6H PRN PRN Reason: Headache/Pain Mild Scale (1-3) Al Hydroxide/Mg Hydroxide (Magnesium Hydrox/Alum Hydrox 30 Ml Oral.Susp) 30 ml PO Q6H PRN PRN Reason: Heartburn/Nausea Amphetamine/Dextroamphetamine (Dextroamphetamine/Amphetamine Xr 10 Mg Cap.Er.24h) 30 mg PO DAILY [facility] Last Admin: 07/18/22 09:08 Dose: 30 mg Buprenorphine/Naloxone (Buprenorphine/Naloxone 8/2 Mg Film) 1 film SUBLINGUAL TID [facility] Last Admin: 07/18/22 09:09 Dose: 1 film Escitalopram Oxalate (Escitalopram Oxalate 10 Mg Tablet) 10 mg PO DAILY [facility] Last Admin: 07/18/22 09:08 Dose: 10 mg Estradiol (Estradiol 0.5 Mg Tablet) 1 mg PO TID [facility] Last Admin: 07/18/22 09:08 Dose: 1 mg Hydroxyzine HCl (Hydroxyzine Hcl 25 Mg Tablet) 25 mg PO Q6H PRN PRN Reason: Anxiety Last Admin: 07/17/22 20:49 Dose: 25 mg Lamotrigine (Lamotrigine 25 Mg Tablet) 25 mg PO DAILY [facility] Last Admin: 07/18/22 09:08 Dose: 25 mg Magnesium Hydroxide (Milk Of Magnesia 30 Ml Oral.Susp) 30 ml PO DAILY PRN PRN Reason: Constipation Nicotine (Nicotine 21 Mg Patch.Td24) 21 mg TRANSDERMA DAILY [facility] Last Admin: 07/18/22 09:08 Dose: 21 mg Nicotine Polacrilex (Nicotine Polacrilex 2 Mg Gum) 4 mg BUCCAL Q2H PRN PRN Reason: Nicotine Cravings Last Admin: 07/17/22 23:19 Dose: 4 mg Prazosin HCl (Prazosin Hcl 5 Mg Capsule) 5 mg PO BEDTIME [facility]; Protocol Spironolactone (Spironolactone 25 Mg Tablet) 25 mg PO DAILY [facility]; Protocol Last Admin: 07/18/22 09:08 Dose: 25 mg Trazodone HCl (Trazodone Hcl 50 Mg Tablet) 50 mg PO BEDTIME MRX1 PRN PRN Reason: Insomnia Last Admin: 07/17/22 00:37 Dose: 50 mg Allergies Allergies Allergy/AdvReac Type Severity Reaction Status Date / Time [facility] Allergy Unknown UNKNOWN Verified 06/04/22 11:40 Assessment & Plan Assessment & Plan (1) MDD (major depressive disorder), recurrent episode, severe: Status: Acute Code(s): F33.2 - Major depressive disorder, recurrent severe without psychotic features (2) PTSD (post-traumatic stress disorder): Status: Acute Code(s): F43.10 - Post-traumatic stress disorder, unspecified (3) Borderline personality disorder: Status: Acute Code(s): F60.3 - Borderline personality disorder (4) ADHD: Status: Acute Code(s): F90.9 - Attention-deficit hyperactivity disorder, unspecified type (5) Opioid use disorder, moderate, dependence: Status: Acute Code(s): F11.20 - Opioid dependence, uncomplicated (6) Cocaine use disorder, moderate, dependence: Status: Acute Code(s): F14.20 - Cocaine dependence, uncomplicated Plan Patient is a 31-year-old trans woman with history of PTSD, depression, cocaine and opioid addiction who presents for worsening depression and suicidality with intentional overdose in the face of being off his medication for a couple months. -patient reports that on medication he feels good enough; wants to get back on all home medications. Patient still has suicidal ideation but feels safe on the unit. Denies any alcohol use/abuse. Patient was restarted on Suboxone in the emergency room and he denies any precipitated withdrawal and that withdrawal symptoms are mostly resolved. Hospital course 07/15 patient remains with severe depression and is suicidal; hopefully is medications are restarted and titrated depression will tristian. Patient recently attempted suicide by overdose; patient requires continued inpatient level of care for safety and medication management and is at significant risk for self-harm were he to be discharged at this time Plan: CV Q 15 minute checks Will add Adderall XL 30mg daily; pt normally on Vyvanse Continue Suboxone 8/2 mg t.i.d. Continue Lexapro 10 mg daily increase to prazosin 2 mg q.h.s. (normally on 2 mg) Continue Lamictal 25 mg daily increase to estradiol 2 mg TID (outpt dose) Increase to spironolactone 50mg daily; eventually titrate to 50 mg b.i.d. Will consider restarting gabapentin; pt says for b/l tibial torsion, congenital Patient normally on Vyvanse however this is not on formula 07/17: Increase Prazosin to 4 mg HS tonight and 5 mg HS tomorrow if tolerated. Otherwise continue current tx plan. 07/18: Prazosin 5 mg tonight. Continue others as is. Continue treatment plan. Reason for continued inpatient stay Substantial Risk for: harm to self, inability to function and rapid decompensation Time Spent With Patient Time: Total time managing care of this patient today ____ minutes.
[2022-07-18 15:45] VITALS: BP 148/80; PULSE 95; TEMP 36.4
[2022-07-18] MEDS: Prazosin HCL 5 MG CAPSULE PO (19:59)
[2022-07-19] MEDS: estradioL 0.5 MG TABLET 1 MG PO (08:59)
[2022-07-19] MEDS: Dextroamphetamine/Amphetamine XR 10 MG CAP.ER.24H 30 MG PO (08:59)
[2022-07-19] MEDS: Escitalopram Oxalate 10 MG TABLET PO (08:59)
[2022-07-19] MEDS: Buprenorphine/Naloxone 8/2 mg FILM 1 FILM SUBLINGUAL ×3 (09:00→20:26)
[2022-07-19] MEDS: Spironolactone 25 MG TABLET PO (09:00)
[2022-07-19] MEDS: lamoTRIgine 25 MG TABLET PO (09:00)
[2022-07-19] MEDS: Nicotine 21 MG PATCH.TD24 TRANSDERMA (09:03)
--- NOTE | 2022-07-19 09:19 | HO.PSYCHPN ---
Subjective Subjective Date of Service: 07/19/22 Reason For Visit: Bipolar Disorder type 2 Opiate /Cocaine Personalii Interim History: Met with patient; discussed in team Patient reports she is doing much better. Of note, patient is with noticeably brighter affect and much more engaged in discussion. She reports she remains depressed however is no longer feeling overwhelmed and is hopeful about both staying sober and working on mood. Patient reports some intermittent SI which comes and goes (and is chronic) however it is not that bad and she is able to ignore it. Patient feels that Adderall has made a big difference in terms of getting back on her feet and appreciates being able to be on a here on the unit. Patient started talking about discharge plans which includes getting back in touch with outpatient providers and therapist. Mental Status Exam Mental Status Exam Narrative: Pt is alert and oriented; behavior is cooperative, calm; patient is not in distress; dressed in hospital attire with good hygiene;, unkempt hair, scruffy facial hair; mood is described as good and affect congruent, brighter, engaged; eye contact appropriate; Speech is normal rate, volume,l prosody; no psychomotor retardation present; thought process is organized and goal directed; Thought content is on discharging aftercare treatment; otherwise pertinent to relevant topics and without any delusional content, paranoid ideations or grandiosity; intermittent passive SI which is chronic, a femoral and able to be ignored; no HI. here is no evidence of perceptual disturbance. Patients insight and judgment much improved and fair. Diagnostics Vital Signs (24Hr): Vital Signs - 24 hr 07/18/22 15:45 Temperature 97.6 F Pulse Rate 95 Blood Pressure 148/80 H BMI result Body Mass Index 31.0 Labs 07/12/22 10:53 07/12/22 10:53 Medications Medications Current Medications Acetaminophen (Acetaminophen 325 Mg Tablet) 650 mg PO Q6H PRN PRN Reason: Headache/Pain Mild Scale (1-3) Al Hydroxide/Mg Hydroxide (Magnesium Hydrox/Alum Hydrox 30 Ml Oral.Susp) 30 ml PO Q6H PRN PRN Reason: Heartburn/Nausea Amphetamine/Dextroamphetamine (Dextroamphetamine/Amphetamine Xr 10 Mg Cap.Er.24h) 30 mg PO DAILY [facility] Last Admin: 07/19/22 08:59 Dose: 30 mg Buprenorphine/Naloxone (Buprenorphine/Naloxone 8/2 Mg Film) 1 film SUBLINGUAL TID [facility] Last Admin: 07/19/22 09:00 Dose: 1 film Escitalopram Oxalate (Escitalopram Oxalate 10 Mg Tablet) 10 mg PO DAILY [facility] Last Admin: 07/19/22 08:59 Dose: 10 mg Estradiol (Estradiol 0.5 Mg Tablet) 1 mg PO TID [facility] Last Admin: 07/19/22 08:59 Dose: 1 mg Hydroxyzine HCl (Hydroxyzine Hcl 25 Mg Tablet) 25 mg PO Q6H PRN PRN Reason: Anxiety Last Admin: 07/17/22 20:49 Dose: 25 mg Lamotrigine (Lamotrigine 25 Mg Tablet) 25 mg PO DAILY [facility] Last Admin: 07/19/22 09:00 Dose: 25 mg Magnesium Hydroxide (Milk Of Magnesia 30 Ml Oral.Susp) 30 ml PO DAILY PRN PRN Reason: Constipation Nicotine (Nicotine 21 Mg Patch.Td24) 21 mg TRANSDERMA DAILY [facility] Last Admin: 07/19/22 09:03 Dose: 21 mg Nicotine Polacrilex (Nicotine Polacrilex 2 Mg Gum) 4 mg BUCCAL Q2H PRN PRN Reason: Nicotine Cravings Last Admin: 07/17/22 23:19 Dose: 4 mg Prazosin HCl (Prazosin Hcl 5 Mg Capsule) 5 mg PO BEDTIME [facility]; Protocol Last Admin: 07/18/22 19:59 Dose: 5 mg Spironolactone (Spironolactone 25 Mg Tablet) 25 mg PO DAILY [facility]; Protocol Last Admin: 07/19/22 09:00 Dose: 25 mg Trazodone HCl (Trazodone Hcl 50 Mg Tablet) 50 mg PO BEDTIME MRX1 PRN PRN Reason: Insomnia Last Admin: 07/17/22 00:37 Dose: 50 mg Allergies Allergies Allergy/AdvReac Type Severity Reaction Status Date / Time aripiprazole [From [facility]] Allergy Unknown UNKNOWN Verified 06/04/22 11:40 Assessment & Plan Assessment & Plan (1) MDD (major depressive disorder), recurrent episode, severe: Status: Acute Code(s): F33.2 - Major depressive disorder, recurrent severe without psychotic features (2) PTSD (post-traumatic stress disorder): Status: Acute Code(s): F43.10 - Post-traumatic stress disorder, unspecified (3) Borderline personality disorder: Status: Acute Code(s): F60.3 - Borderline personality disorder (4) ADHD: Status: Acute Code(s): F90.9 - Attention-deficit hyperactivity disorder, unspecified type (5) Opioid use disorder, moderate, dependence: Status: Acute Code(s): F11.20 - Opioid dependence, uncomplicated (6) Cocaine use disorder, moderate, dependence: Status: Acute Code(s): F14.20 - Cocaine dependence, uncomplicated Plan Patient is a 31-year-old trans woman with history of PTSD, depression, cocaine and opioid addiction who presents for worsening depression and suicidality with intentional overdose in the face of being off his medication for a couple months. -patient reports that on medication he feels good enough; wants to get back on all home medications. Patient still has suicidal ideation but feels safe on the unit. Denies any alcohol use/abuse. Patient was restarted on Suboxone in the emergency room and he denies any precipitated withdrawal and that withdrawal symptoms are mostly resolved. Hospital course 07/15 patient remains with severe depression and is suicidal; hopefully is medications are restarted and titrated depression will tritsian. Patient recently attempted suicide by overdose; patient requires continued inpatient level of care for safety and medication management and is at significant risk for self-harm were he to be discharged at this time 07/17: Increase Prazosin to 4 mg HS tonight and 5 mg HS tomorrow if tolerated. Otherwise continue current tx plan. 07/18: Prazosin 5 mg tonight. Continue others as is. Continue treatment plan. 07/19 patient is feeling much better; says still depressed but overall headed in the right direction, feeling safe to progress with towards discharge. SI remains but it is at its chronic, baseline level and able to be ignored. Discussed discharge on Tuesday who; patient has talked with her mother who is going to help draft roller picker her medications. Discussed substance abuse and patient feels that it is mostly due to being off medications and trying to cope with both pain and negative feelings. Will keep patient on the unit another day or so in order to set up aftercare; otherwise if patient were to be discharged before access to treatment is established, patient would be at high risk for relapse and dysregulation. Plan: CV Q 15 minute checks Will add Adderall XL 30mg daily; pt normally on Vyvanse Continue Suboxone 8/2 mg t.i.d. Continue Lexapro 10 mg daily Increased to prazosin 5 mg q.h.s. 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
[2022-07-19 09:35] VITALS: BP 137/84; PULSE 88; RESP 18; TEMP 36.8; O2SAT 97
[2022-07-19] MEDS: estradioL 0.5 MG TABLET 2 MG PO ×2 (14:47→20:25)
[2022-07-19] MEDS: Prazosin HCL 5 MG CAPSULE PO (20:25)
[2022-07-19] MEDS: Spironolactone 25 MG TABLET 50 MG PO (20:26)
[2022-07-19 21:00] VITALS: BP 125/70; PULSE 90; TEMP 36.5; O2SAT 95
[2022-07-19] MEDS: hydrOXYzine HCL 25 MG TABLET PO (22:41)
--- NOTE | 2022-07-20 09:47 | P.PNPSI_ITS ---
Subjective Subjective Date of Service: 07/20/22 Reason For Visit: Bipolar Disorder type 2 Opiate /Cocaine Personalii Interim History: Met with patient; discussed with team Patient reports that depression is much better. Patient says had a flashback yesterday however is overall feeling much more calm and stable. Ready to discharge tomorrow. No SI at all. Mental Status Exam Mental Status Exam Narrative: Pt is alert and oriented; behavior is cooperative, calm; patient is not in distress; dressed in casual attire with good hygiene;, unkempt hair, scruffy facial hair; mood is described as good and affect congruent, brighter, engaged; eye contact appropriate; Speech is normal rate, volume,l prosody; no psychomotor retardation present; thought process is organized and goal directed; Thought content is on discharging aftercare treatment; otherwise pertinent to relevant topics and without any delusional content, paranoid ideations or grandiosity; intermittent passive SI which is chronic, a femoral and able to be ignored; no HI. here is no evidence of perceptual disturbance. Patients insight and judgment much improved and fair. Diagnostics Vital Signs (24Hr): Vital Signs - 24 hr 07/19/22 21:00 Temperature 97.7 F Pulse Rate 90 Blood Pressure 125/70 Pulse Oximetry 95 Oxygen Delivery Method Room Air BMI result Body Mass Index 31.0 Labs 07/12/22 10:53 07/12/22 10:53 Medications Medications Current Medications Acetaminophen (Acetaminophen 325 Mg Tablet) 650 mg PO Q6H PRN PRN Reason: Headache/Pain Mild Scale (1-3) Al Hydroxide/Mg Hydroxide (Magnesium Hydrox/Alum Hydrox 30 Ml Oral.Susp) 30 ml PO Q6H PRN PRN Reason: Heartburn/Nausea Amphetamine/Dextroamphetamine (Dextroamphetamine/Amphetamine Xr 10 Mg Cap.Er.24h) 30 mg PO DAILY [facility] Last Admin: 07/19/22 08:59 Dose: 30 mg Buprenorphine/Naloxone (Buprenorphine/Naloxone 8/2 Mg Film) 1 film SUBLINGUAL TID [facility] Last Admin: 07/19/22 20:26 Dose: 1 film Escitalopram Oxalate (Escitalopram Oxalate 10 Mg Tablet) 10 mg PO DAILY [facility] Last Admin: 07/19/22 08:59 Dose: 10 mg Estradiol (Estradiol 0.5 Mg Tablet) 2 mg PO TID [facility] Last Admin: 07/19/22 20:25 Dose: 2 mg Hydroxyzine HCl (Hydroxyzine Hcl 25 Mg Tablet) 25 mg PO Q6H PRN PRN Reason: Anxiety Last Admin: 07/19/22 22:41 Dose: 25 mg Lamotrigine (Lamotrigine 25 Mg Tablet) 25 mg PO DAILY [facility] Last Admin: 07/19/22 09:00 Dose: 25 mg Magnesium Hydroxide (Milk Of Magnesia 30 Ml Oral.Susp) 30 ml PO DAILY PRN PRN Reason: Constipation Nicotine (Nicotine 21 Mg Patch.Td24) 21 mg TRANSDERMA DAILY [facility] Last Admin: 07/19/22 09:03 Dose: 21 mg Nicotine Polacrilex (Nicotine Polacrilex 2 Mg Gum) 4 mg BUCCAL Q2H PRN PRN Reason: Nicotine Cravings Last Admin: 07/17/22 23:19 Dose: 4 mg Prazosin HCl (Prazosin Hcl 5 Mg Capsule) 5 mg PO BEDTIME [facility]; Protocol Last Admin: 07/19/22 20:25 Dose: 5 mg Spironolactone (Spironolactone 25 Mg Tablet) 50 mg PO BID [facility]; Protocol Last Admin: 07/19/22 20:26 Dose: 50 mg Trazodone HCl (Trazodone Hcl 50 Mg Tablet) 50 mg PO BEDTIME MRX1 PRN PRN Reason: Insomnia Last Admin: 07/17/22 00:37 Dose: 50 mg Allergies Allergies Allergy/AdvReac Type Severity Reaction Status Date / Time aripiprazole [From [facility]] Allergy Unknown UNKNOWN Verified 06/04/22 11:40 Assessment & Plan Assessment & Plan (1) MDD (major depressive disorder), recurrent episode, severe: Status: Acute Code(s): F33.2 - Major depressive disorder, recurrent severe without psychotic features (2) PTSD (post-traumatic stress disorder): Status: Acute Code(s): F43.10 - Post-traumatic stress disorder, unspecified (3) Borderline personality disorder: Status: Acute Code(s): F60.3 - Borderline personality disorder (4) ADHD: Status: Acute Code(s): F90.9 - Attention-deficit hyperactivity disorder, unspecified type (5) Opioid use disorder, moderate, dependence: Status: Acute Code(s): F11.20 - Opioid dependence, uncomplicated (6) Cocaine use disorder, moderate, dependence: Status: Acute Code(s): F14.20 - Cocaine dependence, uncomplicated Plan Patient is a 31-year-old trans woman with history of PTSD, depression, cocaine and opioid addiction who presents for worsening depression and suicidality with intentional overdose in the face of being off his medication for a couple months. -patient reports that on medication he feels good enough; wants to get back on all home medications. Patient still has suicidal ideation but feels safe on the unit. Denies any alcohol use/abuse. Patient was restarted on Suboxone in the emergency room and he denies any precipitated withdrawal and that withdrawal symptoms are mostly resolved. Hospital course 07/15 patient remains with severe depression and is suicidal; hopefully is medications are restarted and titrated depression will tristian. Patient recently attempted suicide by overdose; patient requires continued inpatient level of care for safety and medication management and is at significant risk for self- harm were he to be discharged at this time 07/17: Increase Prazosin to 4 mg HS tonight and 5 mg HS tomorrow if tolerated. Otherwise continue current tx plan. 07/18: Prazosin 5 mg tonight. Continue others as is. Continue treatment plan. 07/19 patient is feeling much better; says still depressed but overall headed in the right direction, feeling safe to progress with towards discharge. SI remai ns but it is at its chronic, baseline level and able to be ignored. 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 Discussed substance abuse and patient feels that it is mostly due to being off medications and trying to cope with both pain and negative feelings. Will keep patient on the unit another day or so in order to set up aftercare; otherwise if patient were to be discharged before access to treatment is established, patient would be at high risk for relapse and dysregulation. 07/20 patient remains stable and at baseline; will proceed with discharge plans Plan: CV Q 15 minute checks Will add Adderall XL 30mg daily; pt normally on Vyvanse Continue Suboxone 8/2 mg t.i.d. Continue Lexapro 10 mg daily Increased to prazosin 5 mg q.h.s. 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
[2022-07-20] MEDS: Nicotine 21 MG PATCH.TD24 TRANSDERMA (10:20)
[2022-07-20] MEDS: Dextroamphetamine/Amphetamine XR 10 MG CAP.ER.24H 30 MG PO (10:20)
[2022-07-20] MEDS: Spironolactone 25 MG TABLET 50 MG PO ×2 (10:20→20:03)
[2022-07-20] MEDS: Escitalopram Oxalate 10 MG TABLET PO (10:21)
[2022-07-20] MEDS: estradioL 0.5 MG TABLET 2 MG PO ×3 (10:21→20:04)
[2022-07-20] MEDS: lamoTRIgine 25 MG TABLET PO (10:21)
[2022-07-20] MEDS: Buprenorphine/Naloxone 8/2 mg FILM 1 FILM SUBLINGUAL ×3 (10:27→20:03)
[2022-07-20 10:28] VITALS: BP 131/81; PULSE 62; RESP 16; TEMP 36.2
[2022-07-20 20:00] VITALS: BP 140/82; PULSE 92; TEMP 36.3; O2SAT 99
[2022-07-20] MEDS: Prazosin HCL 5 MG CAPSULE PO (20:04)
[2022-07-21] MEDS: Buprenorphine/Naloxone 8/2 mg FILM 1 FILM SUBLINGUAL ×2 (08:42→14:01)
[2022-07-21] MEDS: Escitalopram Oxalate 10 MG TABLET PO (08:43)
[2022-07-21] MEDS: lamoTRIgine 25 MG TABLET PO (08:43)
[2022-07-21] MEDS: Spironolactone 25 MG TABLET 50 MG PO (08:43)
[2022-07-21] MEDS: Dextroamphetamine/Amphetamine XR 10 MG CAP.ER.24H 30 MG PO (08:43)
[2022-07-21 08:49] VITALS: BP 127/70; PULSE 71; RESP 16; TEMP 36.8; O2SAT 99
[2022-07-21] MEDS: estradioL 0.5 MG TABLET 2 MG PO ×2 (10:13→13:58)
--- NOTE | 2022-07-21 11:53 | PM.PSYDC ---
DS: Providers Provider Date of Service: 07/21/22 Date of admission: 07/13/22 16:01 Date of discharge: 07/21/22 Primary care physician: Unknown Physician DS: Diagnosis Discharge Diagnosis (1) MDD (major depressive disorder), recurrent episode, severe: Status: Acute (2) PTSD (post-traumatic stress disorder): Status: Acute (3) Borderline personality disorder: Status: Acute (4) ADHD: Status: Acute (5) Opioid use disorder, moderate, dependence: Status: Acute (6) Cocaine use disorder, moderate, dependence: Status: Acute DS: Medications Discharge Medications Home Medications: Previous Rx's Medication Instructions Recorded buprenorphine 8 mg-naloxone 2 mg 1 film sublingual TID #0 ea 07/21/22 sublingual film (Suboxone) escitalopram oxalate 10 mg tablet 10 mg PO DAILY 30 days #30 tabs 07/21/22 estradiol 2 mg tablet 2 mg PO TID 30 days #90 tabs 07/21/22 lamotrigine 25 mg tablet See Rx Instructions .Route 07/21/22 .COMPLEX #55 tabs nicotine 21 mg/24 hr daily 21 mg transdermal DAILY PRN 07/21/22 transdermal patch smoking cessation 28 days #28 ea prazosin 5 mg capsule 5 mg PO BEDTIME 30 days #30 caps 07/21/22 spironolactone 50 mg tablet 50 mg PO BID 30 days #60 tabs 07/21/22 Mental Status Exam Mental Status Exam Narrative: Pt is alert and oriented; behavior is cooperative, calm; patient is not in distress; dressed in casual attire with good hygiene;, unkempt hair, shaven; mood is described as good and affect congruent, brighter, engaged; eye contact appropriate; Speech is normal rate, volume,l prosody; no psychomotor retardation present; thought process is organized and goal directed; Thought content is on discharging aftercare treatment; otherwise pertinent to relevant topics and without any delusional content, paranoid ideations or grandiosity; no SI; no HI; no evidence of perceptual disturbance and denies AVH. Patients insight and judgment fair. Data Data Completed and Pending Completed studies during hospitalization [Text1]: 07/12/22 Unknown Urine clean catch - Urine bolotn top Urine Culture - Final No growth. DS: Summary Hospital Course Hospital Course: HPI: Patient is a 31-year-old trans woman with history of PTSD, depression, cocaine and opioid addiction who presents for worsening depression and suicidality with intentional overdose in the face of being off his medication for a couple months. -patient reports that on medication he feels good enough; wants to get back on all home medications.? Patient still has suicidal ideation but feels safe on the unit.? Denies any alcohol use/abuse.? Patient was restarted on Suboxone in the emergency room and he denies any precipitated withdrawal and that withdrawal symptoms are mostly resolved. Hospital course On admission patient was depressed and feeling suicidal. Her wanted to restart all her medications which she says are significantly helpful. Patient's Lexapro prazosin or restarted and titrated to home doses; she was placed on Adderall since Vyvanse not available; Lamictal was restarted at 25 mg. With medication and time, patient's depression abated; SI, though chronic, had resolved. Patient reported that he was actually in a good mood and optimistic about staying both sober and stable. Patient developed aftercare plan and said she felt ready for discharge. Patient had returned to baseline. And while she remains at risk for relapse and dysregulation, these are chronic issues for her which will not resolve with longer stay on inpatient unit. Patient is not in imminent risk for harm to self or others and request for discharge honored. Time spent discussing smoking cessation with patient: 3 to 10 minutes Status at Discharge Functional status at discharge: independent ambulation Overall status at discharge: patient is back to baseline Time Spent with Patient Time attestation: Total time managing care of this patient today ____ minutes. Time spent: Less than 30 minutes Discharge Plan Discharge Anticipated Discharge Date/Time: 07/21/22 14:30 Patient Disposition: Senior Care Discharge Diagnosis: MDD, recurrent, severe w/out psychotic features, in full remission Referrals: Psych Prescriber: Getachew Ray ([email or web address]) [Other] - 08/19/22 2:30 pm (Appointment is virtual; use the Zoom link in your patient [place] ) PCP: Odette Zuniga ([email or web address]) [Other] - 07/22/22 3:00 pm (Appointment is in person at the office. Take the elevator to the bottom floor and check in at temporary receptionist desk ) [facility] [Other] - 07/21/22 2:30 pm (Walk in after discharge. ) Discharge Medications: New nicotine 21 mg/24 hr Patch 24 Hour 21 mg transdermal DAILY PRN (Reason: smoking cessation) 28 Days Qty: 28 0RF prazosin 5 mg Capsule 5 mg PO BEDTIME 30 Days Qty: 30 0RF Protocol: Hold for SBP< HOLD for SBP < : 90 spironolactone 50 mg tablet 50 mg PO BID 30 Days Qty: 60 0RF escitalopram oxalate 10 mg Tablet 10 mg PO DAILY 30 Days Qty: 30 0RF lamotrigine 25 mg Tablet See Rx Instructions .ROUTE .COMPLEX Qty: 55 0RF Rx Instructions: take 1 tab daily for 5 days; then take 1 tab BID estradiol 2 mg tablet 2 mg PO TID 30 Days Qty: 90 0RF No Action buprenorphine-naloxone [Suboxone] 8-2 mg film 1 film sublingual TID Qty: 45 0RF Discharge Orders: Discharge Order (Routine); Ordered 07/21/22 Ordered By: Samson Deutsch Diet: Regular diet Activity on Discharge: As tolerated Stand Alone Forms: Patient Portal Discharge page, Community Support Care Plan Goals: Maintain mood and safe behaviors Take medications as prescribed Continue to pursue sobriety Practice coping skills Continue with outpatient providers and reach out to them as needed Health Concerns: Mood stability and behaviors Sobriety Plan of Treatment: Follow up with your PCP, psychiatric provider and other outpatient providers regarding above concerns Take medications as prescribed Assessment: Risk assessment at time of discharge:? Patient was interviewed prior to discharge and found to be fully oriented and without any SI or HI. Patient has insight and demonstrates good judgment in terms of wanting to pursue treatment. Patient is not in imminent risk of harm to self or others and has a safety plan that includes presenting to the closest ER or calling 911 if feeling unsafe.? Patient has been observed closely by nursing and unit staff throughout admission; patient has not engaged in any behaviors that suggest dangerousness to self or others and has demonstrated appropriate behaviors and impulse control Discharge Date/Time: 07/21/22 14:41
[2022-07-21] MEDS: Naloxone HCl Nasal TAKE HOME 4 MG SPRAY NOSTRILALT (12:19)
== END 2022-07-21 14:41 | disposition home or self-care (01) | DRG 885 ==
LOC: HO.ED 16:26 → HO.PM5 07-13 16:37
PROVIDERS: Physician Assistant; Admitting Provider Clinical Nurse Specialist Psychiatric/Mental Health, Adult; Emergency Provider Emergency Medicine; Visit Provider Psychiatry & Neurology Psychiatry
DX: F33.2 Major depressive disorder, recurrent severe without psychotic features (principal); R45.851 Suicidal ideations; F11.20 Opioid dependence, uncomplicated; F14.20 Cocaine dependence, uncomplicated; Z59.02 Unsheltered homelessness; F17.210 Nicotine dependence, cigarettes, uncomplicated; Z71.6 Tobacco abuse counseling; Z20.822 Contact with and (suspected) exposure to COVID-19; F43.10 Post-traumatic stress disorder, unspecified; F60.3 Borderline personality disorder; F90.9 Attention-deficit hyperactivity disorder, unspecified type
CPT/HCPCS: 36415; 80048; 80076; 80307; 81001; 83735; 85025; 87086; 87635; 93005; 99285; S9485

== ENCOUNTER → 2022-07-21 14:32 | Outpatient (BNVA) | payer OTHER, SELFPAY | PROVIDERS: Visit Provider Nurse Practitioner Psychiatric/Mental Health ==

== ENCOUNTER 2022-07-26 20:18 | Emergency (ER) | payer OTHER, SELFPAY ==
[2022-07-26 20:28] VITALS: BMI 28.7
[2022-07-26 20:33] VITALS: BP 156/66; PULSE 96; RESP 18; TEMP 35.7; O2SAT 95
[2022-07-26] MEDS: LORazepam 1 MG TABLET 2 MG PO (20:53)
[2022-07-26] MEDS: diphenhydrAMINE HCL 25 MG CAPSULE 50 MG PO (20:53)
--- NOTE | 2022-07-26 21:25 | ED.PSYCH ---
HPI - Psych General Chief Complaint: Psychiatric Symptoms Stated Complaint: crisis eval Time Seen by Provider: 07/26/22 20:30 Source: EMS and police Mode of arrival: EMS Limitations: other (uncooperative) History of Present Illness HPI Narrative: 31-year-old male history of cocaine use disorder, opiate use disorder, PTSD, major depression, ADHD, psychoactive substance induced mood disorder, borderline personality disorder presenting via ambulance on a [address] with police for abnormal or retic behavior found on the street, suspected polysubstance abuse. On arrival patient agitated, crying, refusing to answer questions however did make suicidal comments towards nursing without particular plan. States leave me alone . Security at bedside and over in 20 hypodermic needles were found in patient's bag with a variety of different medications. Related Data Previous Rx's Medication Instructions Recorded buprenorphine 8 mg-naloxone 2 mg 1 film sublingual TID #45 ea 07/21/22 sublingual film (Suboxone) escitalopram oxalate 10 mg tablet 10 mg PO DAILY 30 days #30 tabs 07/21/22 estradiol 2 mg tablet 2 mg PO TID 30 days #90 tabs 07/21/22 lamotrigine 25 mg tablet See Rx Instructions .Route 07/21/22 .COMPLEX #55 tabs nicotine 21 mg/24 hr daily 21 mg transdermal DAILY PRN 07/21/22 transdermal patch smoking cessation 28 days #28 ea prazosin 5 mg capsule 5 mg PO BEDTIME 30 days #30 caps 07/21/22 spironolactone 50 mg tablet 50 mg PO BID 30 days #60 tabs 07/21/22 lisdexamfetamine 60 mg capsule 60 mg PO DAILY 30 days #30 caps 07/22/22 (Vyvanse) Allergies Allergy/AdvReac Type Severity Reaction Status Date / Time aripiprazole [From [facility]] Allergy Unknown UNKNOWN Verified 07/21/22 14:43 Review of Systems Review of Systems: Uncooperative Yes Unobtainable due to mental status PMFSH Past Medical History Attestation statement: The following information was validated with the patient. Source: old records reviewed and nursing notes reviewed Medical History Abscess of left upper extremity ADHD Anxiety Asthma Borderline personality disorder Cocaine substance abuse Depression HTN (hypertension) IBS (irritable bowel syndrome) MDD (major depressive disorder), recurrent episode, severe Opiate misuse Opioid use disorder, severe, dependence Perianal cyst PTSD (post-traumatic stress disorder) PTSD (post-traumatic stress disorder) Tibial torsion, bilateral Social History Social History Household Members: None Housing: Homeless Housing Other:: [facility] Do you presently have visiting nurse or other home services: No Unable to assess alcohol history related to: Refusing to respond Alcohol intake: current Alcohol intake frequency: 3 or more drinks per day Patient Tobacco Use Status: Current everyday Tobacco user Tobacco use type: Cigarette Cigarette Packs Per Day: 1 Cigarettes Per Day: 20.0 Years Smoked: 15 e-Cigarette/Vaping Use: Never Used Second Hand Smoke Exposure: No Use of substances other than those prescribed or required for medical reasons: Yes Substance Use Type: Inhalants and IV Drugs Substance Use Frequency: Chronic Longstanding Advance Directives: No Advance Directives Information Provided: No service: No Current occupational status: unemployed Sexual orientation: Transgender Physical Exam Vital Signs: Vital Signs: Last Vital Signs Temp 96.3 F L 07/26/22 20:33 Pulse 96 07/26/22 20:33 Resp 18 07/26/22 20:33 BP 156/66 H 07/26/22 20:33 Pulse Ox 95 07/26/22 20:33 O2 Del Method Room Air 07/26/22 20:33 BMI result Body Mass Index 28.7 Vital signs stable Appearance: Alert.? Oriented X3.? No acute distress.? Patient appears disheveled, unkempt Head: Normocephalic, atraumatic, no step-offs or deformities Eyes: Pupils equal, round and reactive to light.? CVS: Normal heart rate and rhythm.? Pulses normal.? Respiratory: No respiratory distress.? Breath sounds normal.? Abdomen: Soft and nontender.? Skin: Skin warm and dry.? Normal skin color.? Normal skin turgor.? Extremities: No lower extremity edema.? No calf ttp. 5/5 strength to bilateral upper and lower extremities Neuro: Oriented X 3.? No motor deficit.? No sensory deficit. CN 2-12 intact Course Reevaluation(s) Reevaluation #1: Patient is sleeping peacefully. CBC with slight leukocytosis likely reactive secondary to acute agitation, patient noted to have a baseline normocytic anemia. Chemistry slightly elevated BUN likely secondary to dehydration/poor p.o. intake. Patient tolerating p.o. fluids. Patient with slight transaminase increase however no tenderness to palpation of abdomen. Patient's salicylates, acetaminophen and ethanol negative. Urine toxicology new a pending. At this time patient to be placed into observation to allow more time to be evaluated by the behavioral health team for suicidal ideation. Time: 23:06 Medications Administered Discontinued Medications Generic Name Dose Route Start Last Admin Trade Name Virgie PRN Reason Stop Dose Admin Diphenhydramine HCl 50 mg 07/26/22 20:28 07/26/22 20:53 Diphenhydramine Hcl 25 Mg Capsule PO 07/26/22 20:29 50 mg ONCE ONE Administration Lorazepam 2 mg 07/26/22 20:28 07/26/22 20:53 Lorazepam 1 Mg Tablet PO 07/26/22 20:29 2 mg ONCE ONE Administration Medical Decision Making Medical Decision Making [facility] Narrative: 31-year-old transgender male to female presents with agitation and bizarre behavior found on the street walking around. Physical exam significant for Patient appears disheveled, unkempt This is likely psychiatric in origin, bipolar versus PTSD versus major depression. I do not suspect metabolic derangements however will rule out. Will order UA, urine toxicology, ethanol. There is no trauma, unlikely traumatic injury to head, neck, chest, abdomen pelvis. Plan medical clearance evaluation by behavioral health Patient agitated willing to take p.o. medications. Differential Diagnosis Differential Diagnoses: The differential diagnosis associated with the presentation includes This is likely psychiatric in origin, bipolar versus PTSD versus major depression. I do not suspect metabolic derangements however will rule out. Will order UA, urine toxicology, ethanol. There is no trauma, unlikely traumatic injury to head, neck, chest, abdomen pelvis. Admission/Observation Consideration of admission/observation: Escalation of care including admission/observation considered Lab Data [facility] Lab Attestation statement: I reviewed the patient's lab results. 07/26/22 21:58 07/26/22 21:58 Labs: Lab Results 07/26/22 07/26/22 07/26/22 Range/Units 21:58 21:58 21:58 WBC 11.7 H (4.8-10.8) X10*3/uL RBC 3.89 L (4.60-5.80) X10*6/uL Hgb 11.0 L (14.0-18.0) g/dl Hct 32.4 L (42.0-52.0) % MCV 83.3 (80.0-98.0) fL MCH 28.3 (27.0-33.0) pg MCHC 34.0 (31.0-36.0) g/dl RDW 13.6 (11.0-16.0) % Plt Count 231 (160-400) X10*3/uL MPV 9.2 L (9.4-12.4) fL Immature Gran % (Auto) 0.3 (0.0-0.4) % Neut % (Auto) 76.5 H (45-73) % Lymph % (Auto) 15.4 L (20-40) % Price % (Auto) 7.0 (2-11) % Eos % (Auto) 0.5 (0-4) % Baso % (Auto) 0.3 (0-2) % Lymph # (Auto) 1.8 (1.2-4.9) X10*3/uL Price # (Auto) 0.8 (0.1-1.2) X10*3/uL Eos # (Auto) 0.1 (0.0-0.4) X10*3/uL Baso # (Auto) 0.0 (0.0-0.2) X10*3/uL Abs Immat Gran (auto) 0.04 H (0.00-0.03) X10*3/uL Absolute Neuts (auto) 9.0 H (2.0-8.3) x10*3/uL Absolute Nucleated RBC 0.000 (0.0-0.012) X10*3/uL Nucleated RBC % (auto) 0.0 (0.0-0.2) /100WBC Sodium 137 (135-145) mmol/L Potassium 3.6 (3.3-5.1) mmol/L Chloride 105 (96-108) mmol/L Carbon Dioxide 26 (22-29) mmol/L Anion Gap 10 L (12-20) BUN 21 H (9-16) mg/dL Creatinine 0.66 (0.5-1.4) mg/dL Estim Creat Clear Calc 180.3 Estimated GFR > 60 Random Glucose 105 (60-115) mg/dL Calcium 8.5 (8.4-10.2) mg/dL Magnesium 1.7 (1.6-2.6) mg/dL Total Bilirubin 0.8 (0.0-1.0) mg/dL AST 78 H (5-37) U/L ALT 61 H (0-40) U/L Alkaline Phosphatase 49 (39-117) U/L Total Protein 5.9 L (6.5-8.0) g/dL Albumin 3.7 (3.5-5.0) g/dL Lipase 7 L (8-78) U/L Salicylates < 5.0 L (15-30) mg/dL Acetaminophen < 17 (<30) mcg/mL Ethyl Alcohol < 10 Cancelled mg/dL COVID-19 (LOS) (Negative) COVID-19 Clin Com 07/26/22 Range/Units 21:58 WBC (4.8-10.8) X10*3/uL RBC (4.60-5.80) X10*6/uL Hgb (14.0-18.0) g/dl Hct (42.0-52.0) % MCV (80.0-98.0) fL MCH (27.0-33.0) pg MCHC (31.0-36.0) g/dl RDW (11.0-16.0) % Plt Count (160-400) X10*3/uL MPV (9.4-12.4) fL Immature Gran % (Auto) (0.0-0.4) % Neut % (Auto) (45-73) % Lymph % (Auto) (20-40) % Price % (Auto) (2-11) % Eos % (Auto) (0-4) % Baso % (Auto) (0-2) % Lymph # (Auto) (1.2-4.9) X10*3/uL Price # (Auto) (0.1-1.2) X10*3/uL Eos # (Auto) (0.0-0.4) X10*3/uL Baso # (Auto) (0.0-0.2) X10*3/uL Abs Immat Gran (auto) (0.00-0.03) X10*3/uL Absolute Neuts (auto) (2.0-8.3) x10*3/uL Absolute Nucleated RBC (0.0-0.012) X10*3/uL Nucleated RBC % (auto) (0.0-0.2) /100WBC Sodium (135-145) mmol/L Potassium (3.3-5.1) mmol/L Chloride (96-108) mmol/L Carbon Dioxide (22-29) mmol/L Anion Gap (12-20) BUN (9-16) mg/dL Creatinine (0.5-1.4) mg/dL Estim Creat Clear Calc Estimated GFR Random Glucose (60-115) mg/dL Calcium (8.4-10.2) mg/dL Magnesium (1.6-2.6) mg/dL Total Bilirubin (0.0-1.0) mg/dL AST (5-37) U/L ALT (0-40) U/L Alkaline Phosphatase (39-117) U/L Total Protein (6.5-8.0) g/dL Albumin (3.5-5.0) g/dL Lipase (8-78) U/L Salicylates (15-30) mg/dL Acetaminophen (<30) mcg/mL Ethyl Alcohol mg/dL COVID-19 (LOS) Negative (Negative) COVID-19 Clin Com See Note Core Measures AMI core measures followed: Yes Measure exclusions: not indicated Critical Care Time Critical Care Time Critical Care Time: No Discharge Plan Discharge Clinical Impression: Psychoactive substance-induced mood disorder, Suicidal ideation Patient Disposition: Still a Patient Prescriptions: No Action nicotine 21 mg/24 hr Patch 24 Hour 21 mg transdermal DAILY PRN (Reason: smoking cessation) 28 Days Qty: 28 0RF prazosin 5 mg Capsule 5 mg PO BEDTIME 30 Days Qty: 30 0RF Protocol: Hold for SBP< HOLD for SBP < : 90 spironolactone 50 mg tablet 50 mg PO BID 30 Days Qty: 60 0RF escitalopram oxalate 10 mg Tablet 10 mg PO DAILY 30 Days Qty: 30 0RF lamotrigine 25 mg Tablet See Rx Instructions .ROUTE .COMPLEX Qty: 55 0RF Rx Instructions: take 1 tab daily for 5 days; then take 1 tab BID estradiol 2 mg tablet 2 mg PO TID 30 Days Qty: 90 0RF Vyvanse 60 mg capsule 60 mg PO DAILY 30 Days Qty: 30 0RF Rx Instructions: Partial Fill upon patient request. buprenorphine-naloxone [Suboxone] 8-2 mg film 1 film sublingual TID Qty: 45 0RF Interventions: Berger-Suicide Risk Severity Scale Last Done: 07/26/22 20:28
[2022-07-26 22:04] LABS: MANUAL DIFF FLAG NO
[2022-07-26 22:06] LABS: Basophils Percent Auto 0.3 % (0-2); Eosinophils Absolute Auto 0.1 X10*3/uL (0.0-0.4); Eosinophils Percent Auto 0.5 % (0-4); Hematocrit 32.4 % (42.0-52.0); Imm Gran Abs Auto 0.04 X10*3/uL (0.00-0.03); Imm Gran Pct Auto 0.3 % (0.0-0.4); Lymphocytes Absolute Auto 1.8 X10*3/uL (1.2-4.9); Lymphocytes Percent Auto 15.4 % (20-40); Mean Corpuscular Hemoglobin 28.3 pg (27.0-33.0); Mean Corpuscular Volume 83.3 fL (80.0-98.0); Mean Platelet Volume 9.2 fL (9.4-12.4); Monocytes Absolute Auto 0.8 X10*3/uL (0.1-1.2); Neutrophils Percent Auto 76.5 % (45-73); Platelet Count 231 X10*3/uL (160-400); Red Blood Count 3.89 X10*6/uL (4.60-5.80); Red Cell Distribution Width 13.6 % (11.0-16.0); White Blood Count 11.7 X10*3/uL (4.8-10.8)
[2022-07-26 22:21] LABS: Acetaminophen LAB < 17 mcg/mL (<30); Alanine Aminotransferase 61 U/L (0-40); Albumin Level 3.7 g/dL (3.5-5.0); Alkaline Phosphatase 49 U/L (39-117); Anion Gap 10 (12-20); Aspartate Amino Transferase 78 U/L (5-37); Bilirubin Total 0.8 mg/dL (0.0-1.0); Blood Urea Nitrogen 21 mg/dL (9-16); Calcium 8.5 mg/dL (8.4-10.2); Carbon Dioxide 26 mmol/L (22-29); Chloride 105 mmol/L (96-108); Creatinine Clr Calc Pharmacy 180.3; Estimated Glomerular Filt Rate > 60; Glucose Random 105 mg/dL (60-115); Lipase 7 U/L (8-78); Magnesium 1.7 mg/dL (1.6-2.6); Potassium 3.6 mmol/L (3.3-5.1); Salicylate < 5.0 mg/dL (15-30); Sodium 137 mmol/L (135-145); Total Protein 5.9 g/dL (6.5-8.0)
[2022-07-26 22:22] LABS: COVID-19 Test Negative (Negative); IDNOW Serial# 08D9AD1C
[2022-07-26 22:58] LABS: Ethanol < 10 mg/dL
--- NOTE | 2022-07-26 23:24 | PC.NURSE ---
Pt sleeping, easily rousable, 1:1 sitter at bedside for safety, no acute distress noted at this time.
[2022-07-26 23:31] VITALS: RESP 16
--- NOTE | 2022-07-26 23:32 | MHC.EDTECH ---
this pct assumed care of patient at 2300 ,pt sleeping ,rn is aware we are unable to collect urine sample at this time ,patient observer at bedside .
--- NOTE | 2022-07-27 00:12 | PC.NURSE ---
Patient just got transferred from main ED in wheelchair due to drowsiness, currently in recliner appears sleeping, no distress observed/reported, respiration +/=/non-labored bilaterally, care consult ordered for endorsed suicidality secondary to polysubstance use, patient will be evaluated in the morning, patient's has been presented to [facility] ED for multiple times with similar presentation, med rec completed/pending provider's approval, will continue to monitor.
[2022-07-27 06:00] VITALS: BP 112/64; PULSE 72; RESP 17; TEMP 36.7; O2SAT 96
--- NOTE | 2022-07-27 06:06 | PC.NURSE ---
Patient slept through the night, no distress observed/reported, med rec completed/pending provider's approval, behavior non concerning at this time, care consult ordered/pending evaluation, urine sample pending, will continue to monitor
[2022-07-27] MEDS: estradioL 0.5 MG TABLET 2 MG PO ×3 (10:03→21:41)
[2022-07-27] MEDS: Escitalopram Oxalate 10 MG TABLET PO (10:04)
[2022-07-27] MEDS: Spironolactone 25 MG TABLET 50 MG PO ×2 (10:04→21:41)
[2022-07-27] MEDS: lamoTRIgine 25 MG TABLET PO ×2 (10:04→21:41)
[2022-07-27 11:06] LABS: Appearance Urine Cloudy; Color Urine Dark Yellow; Glucose Urine UA Negative (Negative); Leukocyte Esterase Urine Small (1+) (Negative); Nitrite Urine Negative (Negative); UMIC TRIGGER UACC YES; Urine Blood Negative (Negative); Urine Ketones 15 mg/dL (Negative); Urine Protein Trace mg/dL (Neg-Trace)
[2022-07-27 11:14] LABS: Amphetamine Screen Urine POSITIVE (Not Detect); Barbiturates, Urine Not Detected (Not Detect); Benzodiazepines Screen Urine Not Detected (Not Detect); Cannabinoid Screen Urine POSITIVE (Not Detect); Cocaine Screen Urine POSITIVE (Not Detect); Fentanyl, urine POSITIVE (Not Detect); Opiate Screen Urine Not Detected (Not Detect); Phencyclidine Screen Urine Not Detected (Not Detect)
--- NOTE | 2022-07-27 11:16 | PC.NURSE ---
Pt admits SI. Reports using Heroin yesterday and claiming someone accidently walked away with his Suboxone in his Back-pack. Pt has been sleeping this shift.
[2022-07-27 11:23] LABS: Bacteria Urine 4+ (None Seen); Hyaline Casts Urine 0-2 /LPF (0-2); RBC Urine 0-2 /HPF (0-2); UACC Culture Trigger YES; WBC Urine >50 /HPF (0-5)
[2022-07-27 11:24] LABS: Specific Gravity - Urine >= 1.030 (1.005-1.025)
--- NOTE | 2022-07-27 14:39 | MHC.RECOVSUP ---
Pt presented to ED for SI, pt cleared by care team. pt shares she has been on 24mg Suboxone and does not use other substances in addition to it. Pt informs she does not have her Suboxone anymore as it was in a backpack that someone took so she used yesterday, taking about 4 bags of heroin intravenously before presenting to the ED. Pt shares she would like to attend [facility]S, referral has been sent and bed search in process. Pt has no other questions or concerns at this time.
[2022-07-27 15:50] VITALS: BP 105/45; PULSE 72; RESP 17; TEMP 36.4; O2SAT 95
--- NOTE | 2022-07-27 16:31 | MHC.RECOVRN ---
Briefly met with pt in [facility] after pt requesting Suboxone. Pt prescribed 8 mg TID, last film on Tuesday. Pt reports between Tuesday evening and Tuesday morning using 5 bags heroin. Pt currently reporting body aches, appears diaphoretic. Pt educated regarding precipitated withdrawal, verbalizes understanding. Pt has historically not experienced precipitated withdrawal. Pt denies questions or concerns at this time. Discussed with Laisha Huff APRN.
[2022-07-27] MEDS: Buprenorphine/Naloxone 8/2 mg FILM 1 FILM SUBLINGUAL ×2 (16:43→21:42)
--- NOTE | 2022-07-27 18:08 | MHC.RECOVSUP ---
No beds available for pt at this time. [facility] suggested pt present to them in the morning with her discharge papers for intake, pt was informed of this. PT was provided recovery resources and will follow up from the community. Provider is aware.
[2022-07-27] MEDS: Prazosin HCL 5 MG CAPSULE PO (21:41)
[2022-07-28 03:04] VITALS: BP 138/82; PULSE 81; RESP 17; TEMP 36.7; O2SAT 96
--- NOTE | 2022-07-28 06:03 | MHC.EVENTN ---
Patient slept through the night, no distress observed/reported, medication compliant, behavior non concerning, disposition recovery team detox bed search, VSS, will continue to monitor.
--- NOTE | 2022-07-28 09:49 | MHC.RECOVRN ---
This instructional writer met with patient, patient requesting detox. Patient reports no adverse affects after receiving Suboxone medication. Detox referral sent to [facility].
[2022-07-28] MEDS: estradioL 0.5 MG TABLET 2 MG PO (10:02)
[2022-07-28] MEDS: Buprenorphine/Naloxone 8/2 mg FILM 1 FILM SUBLINGUAL (10:02)
[2022-07-28] MEDS: Spironolactone 25 MG TABLET 50 MG PO (10:03)
[2022-07-28] MEDS: lamoTRIgine 25 MG TABLET PO (10:03)
[2022-07-28] MEDS: Escitalopram Oxalate 10 MG TABLET PO (10:03)
--- NOTE | 2022-07-28 11:31 | MHC.RECOVSUP ---
Met with pt in [facility] to go over her medications she will need for ATS at [facility]. When talking with pt she informs that her backpack was not with someone else and that it is here in decon so she should have all her medications. Pt informs she is no longer interested in going to [facility]S and would like to leave. Nurse and Provider made aware that pt is ready for dc.
== END 2022-07-28 11:42 | disposition home or self-care (01) ==
PROVIDERS: Physician Assistant; Emergency Provider Emergency Medicine Emergency Medical Services
DX: F19.14 Other psychoactive substance abuse with psychoactive substance-induced mood disorder (principal); R45.851 Suicidal ideations; R45.1 Restlessness and agitation; D72.829 Elevated white blood cell count, unspecified; Z20.822 Contact with and (suspected) exposure to COVID-19; F43.10 Post-traumatic stress disorder, unspecified; F32.9 Major depressive disorder, single episode, unspecified; F90.9 Attention-deficit hyperactivity disorder, unspecified type; F41.9 Anxiety disorder, unspecified; F60.3 Borderline personality disorder; F64.0 Transsexualism; F11.20 Opioid dependence, uncomplicated; F17.210 Nicotine dependence, cigarettes, uncomplicated; Z79.899 Other long term (current) drug therapy
CPT/HCPCS: 36415; 80053; 80143; 80179; 80307; 81001; 81003; 83690; 83735; 85025; 87086; 87635; 99285; S9485

== ENCOUNTER 2022-08-11 02:27 | Emergency (ER) | payer OTHER, SELFPAY ==
--- NOTE | 2022-08-11 | ECG_ITS ---
Test Reason : sob Blood Pressure : / mmHG Vent. Rate : 090 BPM Atrial Rate : 090 BPM P-R Int : 136 ms QRS Dur : 088 ms QT Int : 360 ms P-R-T Axes : 050 026 039 degrees QTc Int : 440 ms Normal sinus rhythm Normal ECG When compared with ECG of 12-JUL-2022 15:26, Premature atrial complexes are no longer Present Vent. rate has increased BY 32 BPM Referred By: Generic ED Physician Electronically Signed By:Tim Bell
[2022-08-11 02:29] VITALS: BP 163/85; PULSE 100; TEMP 38.1; O2SAT 95; BMI 32.5
--- NOTE | 2022-08-11 02:44 | PC.NURSE ---
labs ordered, charge nurse notified of infection.
[2022-08-11 03:08] LABS: Hemoglobin 10.9 g/dl (14.0-18.0); Mean Corpuscular HGB Conc 34.1 g/dl (31.0-36.0); Mean Corpuscular Hemoglobin 28.2 pg (27.0-33.0); Mean Corpuscular Volume 82.7 fL (80.0-98.0); Mean Platelet Volume 9.7 fL (9.4-12.4); Platelet Count 303 X10*3/uL (160-400); Red Blood Count 3.87 X10*6/uL (4.60-5.80); Red Cell Distribution Width 14.1 % (11.0-16.0); White Blood Count 15.6 X10*3/uL (4.8-10.8)
[2022-08-11 03:15] LABS: Lactic Acid 0.7 mmol/L (0.5-2.0)
[2022-08-11 03:28] LABS: Alanine Aminotransferase 118 U/L (0-40); Albumin Level 3.5 g/dL (3.5-5.0); Alkaline Phosphatase 108 U/L (39-117); Anion Gap 13 (12-20); Aspartate Amino Transferase 98 U/L (5-37); Bilirubin Total 0.9 mg/dL (0.0-1.0); Blood Urea Nitrogen 13 mg/dL (9-16); Calcium 8.6 mg/dL (8.4-10.2); Carbon Dioxide 30 mmol/L (22-29); Chloride 93 mmol/L (96-108); Creatinine Clr Calc Pharmacy 165.3; Estimated Glomerular Filt Rate > 60; Glucose Random 116 mg/dL (60-115); Lipase 7 U/L (8-78); Potassium 3.8 mmol/L (3.3-5.1); Sodium 132 mmol/L (135-145); Total Protein 6.4 g/dL (6.5-8.0)
--- NOTE | 2022-08-11 05:13 | PC.NURSE ---
Pt temporarily moved to room for bedside procedure.
[2022-08-11] MEDS: Acetaminophen 325 MG TABLET 975 MG PO (05:28)
[2022-08-11] MEDS: Clindamycin HCL 300 MG CAPSULE 600 MG PO (05:31)
[2022-08-11] MEDS: Lidocaine HCl 1 % MPF 5 ML VIAL 15 ML SUBCUT (05:32)
--- NOTE | 2022-08-11 05:55 | ED_ITS ---
HPI - Skin/Abscess/Foreign Bdy General Chief complaint: Skin/Abscess/Foreign Body Stated complaint: Arm swelling/ abscess? Time Seen by Provider: 08/11/22 04:03 History of Present Illness HPI narrative: Patient is a 31-year-old with a history of IV drug use. History of cocaine abuse. History of heroin abuse. Complaining of swelling to right biceps area. Red, swollen patient last used heroin at 01:00 this morning along with cracked. Patient walks outside on a regular basis. She is homeless. Related Data Home Medications Medication Instructions Recorded Confirmed buprenorphine 8 mg-naloxone 2 mg 10 mg sublingual TID 07/27/22 07/27/22 sublingual film (Suboxone) escitalopram oxalate 10 mg tablet 10 mg PO DAILY 07/27/22 07/27/22 estradiol 2 mg tablet 2 mg PO TID 07/27/22 07/27/22 lamotrigine 25 mg tablet 25 mg PO BID 07/27/22 07/27/22 lisdexamfetamine 60 mg capsule 60 mg PO DAILY 07/27/22 07/27/22 (Vyvanse) nicotine 21 mg/24 hr daily 1 patch transdermal DAILY PRN 07/27/22 07/27/22 transdermal patch Nicotine Cravings prazosin 5 mg capsule 5 mg PO BEDTIME 07/27/22 07/27/22 spironolactone 50 mg tablet 50 mg PO BID 07/27/22 07/27/22 Previous Rx's Medication Instructions Recorded acetaminophen 325 mg tablet 650 mg PO Q6H PRN fever #20 tabs 08/11/22 (Tylenol) clindamycin HCl 300 mg capsule 300 mg PO QID 10 days #40 caps 08/11/22 Allergies Allergy/AdvReac Type Severity Reaction Status Date / Time aripiprazole [From ABILIFY] Allergy Unknown UNKNOWN Verified 07/21/22 14:43 Review of Systems Review of Systems: Positive pain to the right biceps area positive redness swelling Yes all other systems are reviewed and are negative PMFSH Past Medical History Attestation statement: The following information was validated with the patient. Medical History Abscess of left upper extremity ADHD Anxiety Asthma Borderline personality disorder Cocaine substance abuse Depression HTN (hypertension) IBS (irritable bowel syndrome) MDD (major depressive disorder), recurrent episode, severe Opiate misuse Opioid use disorder, severe, dependence Perianal cyst Polysubstance abuse PTSD (post-traumatic stress disorder) PTSD (post-traumatic stress disorder) Tibial torsion, bilateral Social History Social History Household Members: None Housing: Homeless Housing Other:: [place] [facility] Do you presently have visiting nurse or other home services: No Unable to assess alcohol history related to: Refusing to respond Alcohol intake: never Patient Tobacco Use Status: Current everyday Tobacco user Tobacco use type: Cigarette Cigarette Packs Per Day: 1 Cigarettes Per Day: 20.0 Years Smoked: 15 Smoked in Last 30 Days: Yes e-Cigarette/Vaping Use: Never Used Second Hand Smoke Exposure: No Use of substances other than those prescribed or required for medical reasons: Yes Substance Use Type: Crack/Cocaine and Heroin Substance Use Frequency: Chronic Longstanding Last Used Substance: Just Prior to Admission Any prior treatment program specific to substance use: No Advance Directives: No Advance Directives Information Provided: No service: No Current occupational status: unemployed Sexual orientation: Transgender Physical Exam Vital Signs: Vital Signs: Last Vital Signs Temp 99.6 F 08/11/22 05:56 Pulse 84 08/11/22 05:56 Resp 16 08/11/22 05:56 BP 127/61 08/11/22 05:56 Pulse Ox 96 08/11/22 05:56 O2 Del Method Room Air 08/11/22 05:56 BMI result Body Mass Index 32.5 Appearance: Alert. Oriented X3. No acute distress. Eyes: Pupils equal, round and reactive to light. ENT: Pharynx normal. Neck: Normal inspection. Neck supple. No lymph nodes noted. No crepitus CVS: Normal heart rate and rhythm. Pulses normal. Normal S1 and S2 Respiratory: No respiratory distress. Breath sounds normal. No Wheezing. No rales Abdomen: Soft and nontender. No rigidity. No distention. good BS x4 Skin: Multiple track perez noted. Positive redness swelling to the right biceps area with noted fluctuant area more distally. The area of redness is at least 6 cm x 4 cm in size. Extremities: No lower extremity edema. Neurovascular intact to all extremities. No Lacerations. Multiple track perez noted. Movement of the elbow wrist were intact bilaterally. Distal pulses intact capillary refill less than 2 seconds Neuro: Oriented X 3. No motor deficit. No sensory deficit. Moving all extermities. No slurred speech Medications Administered Discontinued Medications Generic Name Dose Route Start Last Admin Trade Name Virgie PRN Reason Stop Dose Admin Acetaminophen 975 mg 08/11/22 05:08 08/11/22 05:28 Acetaminophen 325 Mg Tablet PO 08/11/22 05:09 975 mg ONCE ONE Administration Clindamycin HCl 600 mg 08/11/22 05:08 08/11/22 05:31 Clindamycin Hcl 300 Mg Capsule PO 08/11/22 05:09 600 mg ONCE ONE Administration Lidocaine HCl 15 ml 08/11/22 05:10 08/11/22 05:32 Lidocaine Hcl 1 % Mpf 5 Ml Vial SUBCUT 08/11/22 05:11 15 ml ONCE ONE Administration Medical Decision Making Medical Decision Making [facility] Narrative: Patient has a large abscess to the right arm. With surrounding erythema. Labs were drawn by nursing prior to my arrival. Patient's white count was elevated, suggestive of the cellulitis. Lactate was normal. There is no evidence for severe sepsis. Patient abscess was drained. Started on clindamycin as patient walks outside a regular basis. Wanted to cover community-acquired MRSA. Will given the additional script of clindamycin. Tylenol for pain. Patient asked to come back in 2 days for close follow-up. Repeat wound check. Patient states understanding. Patient wants to leave. In stable condition. SHe will closely follow-up. Differential Diagnosis Differential Diagnoses: The differential diagnosis associated with the presentation includes Cellulitis, abscess, Lab Data [facility] Lab Attestation statement: I reviewed the patient's lab results. 08/11/22 02:57 08/11/22 02:57 Labs: Lab Results 08/11/22 08/11/22 08/11/22 Range/Units 02:57 02:57 02:58 WBC 15.6 H (4.8-10.8) X10*3/uL RBC 3.87 L (4.60-5.80) X10*6/uL Hgb 10.9 L (14.0-18.0) g/dl Hct 32.0 L (42.0-52.0) % MCV 82.7 (80.0-98.0) fL MCH 28.2 (27.0-33.0) pg MCHC 34.1 (31.0-36.0) g/dl RDW 14.1 (11.0-16.0) % Plt Count 303 D (160-400) X10*3/uL MPV 9.7 (9.4-12.4) fL Absolute Nucleated RBC 0.000 (0.0-0.012) X10*3/uL Nucleated RBC % (auto) 0.0 (0.0-0.2) /100WBC Sodium 132 L (135-145) mmol/L Potassium 3.8 (3.3-5.1) mmol/L Chloride 93 L (96-108) mmol/L Carbon Dioxide 30 H (22-29) mmol/L Anion Gap 13 (12-20) BUN 13 (9-16) mg/dL Creatinine 0.74 (0.5-1.4) mg/dL Estim Creat Clear Calc 165.3 Estimated GFR > 60 Random Glucose 116 H (60-115) mg/dL Lactic Acid 0.7 (0.5-2.0) mmol/L Calcium 8.6 (8.4-10.2) mg/dL Total Bilirubin 0.9 (0.0-1.0) mg/dL AST 98 H (5-37) U/L ALT 118 H (0-40) U/L Alkaline Phosphatase 108 (39-117) U/L Total Protein 6.4 L (6.5-8.0) g/dL Albumin 3.5 (3.5-5.0) g/dL Lipase 7 L (8-78) U/L Chronic Conditions IV drug use Social Determinants Patient?s care significantly limited by Social Determinants of Health including: Alcoholism and drug addiction in family Procedures Abscess I/D Site: other (Right biceps) Side (if applicable): right Local Anesthetic: lidocaine 1% Amount of anesthesia used (mL): 10 Technique: needle aspiration and incised with blade Amount of fluid expressed (mL): 5 Sent for culture/gram staining?: Yes Irrigation: Yes Packing used?: iodoform Discharge Plan Discharge Clinical Impression: Cellulitis, Abscess Patient Disposition: Home, Self-Care Instructions: Cellulitis (DC), Abscess (ED), Abscess Incision and Drainage (DC) Prescriptions: New clindamycin HCl 300 mg capsule 300 mg PO QID 10 Days Qty: 40 0RF acetaminophen [Tylenol] 325 mg tablet 650 mg PO Q6H PRN (Reason: fever) Qty: 20 0RF No Action lamotrigine 25 mg tablet 25 mg PO BID prazosin 5 mg capsule 5 mg PO BEDTIME nicotine 21 mg/24 hr patch 24 hour 1 patch transdermal DAILY PRN (Reason: Nicotine Cravings) estradiol 2 mg tablet 2 mg PO TID spironolactone 50 mg tablet 50 mg PO BID escitalopram oxalate 10 mg tablet 10 mg PO DAILY Vyvanse 60 mg capsule 60 mg PO DAILY buprenorphine-naloxone [Suboxone] 8-2 mg film 10 mg sublingual TID Referrals: Dumont,Jade Jimenez MD [Emergency Provider] - 08/13/22 (Please come back in 2 days for packing removal and wound check. Please take all your antibiotics.)
[2022-08-11 05:56] VITALS: BP 127/61; PULSE 84; RESP 16; TEMP 37.6; O2SAT 96
--- NOTE | 2022-08-11 06:06 | PC.NURSE ---
Pt tolerating PO intake with no complications, wound dressed after procedure. Plan for discharge when available.
== END 2022-08-11 06:17 | disposition home or self-care (01) ==
PROVIDERS: Emergency Provider Emergency Medicine Emergency Medical Services; PCP Family Medicine
DX: L02.413 Cutaneous abscess of right upper limb (principal); L03.113 Cellulitis of right upper limb; F19.10 Other psychoactive substance abuse, uncomplicated; F14.20 Cocaine dependence, uncomplicated; F11.20 Opioid dependence, uncomplicated
CPT/HCPCS: 10060; 36415; 80053; 83605; 83690; 85027; 87040; 87070; 87147; 87205; 93005; 99284; 99285

== ENCOUNTER 2022-08-13 10:04 | Emergency (ER) | payer OTHER, SELFPAY ==
[2022-08-13 10:08] VITALS: BP 130/100; BP 144/73; PULSE 70; PULSE 76; RESP 16; TEMP 36.6; O2SAT 96; O2SAT 97; BMI 31.7
--- NOTE | 2022-08-13 10:18 | PC.NURSE ---
Pt alert/oriented. Dressing removed to right upper arm, site with packing noted, redness around. Sl warm to touch. Taking abx as prescribed per pt. Lump noted to left hand, pt denies IVDA to this site. Pt reports taking Suboxone this AM and not using heroin at this time, but admits to cocaine use. Denies any drugs on person.
--- NOTE | 2022-08-13 10:41 | ED.GENADULT ---
HPI - General Adult General Chief complaint: Wound/Laceration Stated complaint: L hand and R arm abscess per EMS Time Seen by Provider: 08/13/22 10:35 Source: patient, RN notes reviewed and old records reviewed Mode of arrival: ambulatory History of Present Illness HPI narrative: 31-year-old male with a past medical history of ADHD, anxiety, asthma, looking her depression, HTN, IBS, PTSD, polysubstance abuse, IVDA, present to the ED for packing removal to right bicep and abscess to left hand. Patient was seen and treated in the ED on 08/11 at right biceps abscess I&D, has been taking clindamycin with compliance for patient, wound culture grew group a strep. Mid area overall improved, denies active drainage, fever/chills, increasing redness. Denies injecting to left hand. Onset (ago): day(s) Related Data Home Medications Medication Instructions Recorded Confirmed escitalopram oxalate 10 mg tablet 10 mg PO DAILY 07/27/22 07/27/22 estradiol 2 mg tablet 2 mg PO TID 07/27/22 07/27/22 lamotrigine 25 mg tablet 25 mg PO BID 07/27/22 07/27/22 lisdexamfetamine 60 mg capsule 60 mg PO DAILY 07/27/22 07/27/22 (Vyvanse) nicotine 21 mg/24 hr daily 1 patch transdermal DAILY PRN 07/27/22 07/27/22 transdermal patch Nicotine Cravings prazosin 5 mg capsule 5 mg PO BEDTIME 07/27/22 07/27/22 spironolactone 50 mg tablet 50 mg PO BID 07/27/22 07/27/22 Previous Rx's Medication Instructions Recorded acetaminophen 325 mg tablet 650 mg PO Q6H PRN fever #20 tabs 08/11/22 (Tylenol) clindamycin HCl 300 mg capsule 300 mg PO QID 10 days #40 caps 08/11/22 buprenorphine 8 mg-naloxone 2 mg 1 film sublingual TID #42 ea 08/13/22 sublingual film (Suboxone) Allergies Allergy/AdvReac Type Severity Reaction Status Date / Time aripiprazole [From ABILIFY] Allergy Unknown UNKNOWN Verified 07/21/22 14:43 Review of Systems Review of Systems: Constitutional: No Fever, No Chills ENT/Mouth: No Ear Pain, No Nasal Congestion, No sore throat, No Rhinorrhea, No Swallowing Difficulty Cardiovascular: No Chest Pain, No SOB Respiratory: No Cough, No Sputum, No Wheezing Gastrointestinal: No Nausea, No Vomiting, No Diarrhea, No Constipation, No Abdominal pain Musculoskeletal: No joint pain, No Myalgias, No Joint Swelling Skin: +Skin Lesions, No rash Neuro: No Weakness, No Numbness, No Paresthesias Yes all other systems are reviewed and are negative Constitutional: Constitutional: Reports as per [facility] Past Medical History Attestation statement: The following information was validated with the patient. Source: old records reviewed Medical History Abscess of left upper extremity ADHD Anxiety Asthma Borderline personality disorder Cocaine substance abuse Depression HTN (hypertension) IBS (irritable bowel syndrome) MDD (major depressive disorder), recurrent episode, severe Opiate misuse Opioid use disorder, severe, dependence Perianal cyst Polysubstance abuse PTSD (post-traumatic stress disorder) PTSD (post-traumatic stress disorder) Tibial torsion, bilateral Social History Social History Household Members: None Housing: Homeless Housing Other:: [place] [facility] Do you presently have visiting nurse or other home services: No Unable to assess alcohol history related to: Refusing to respond Alcohol intake: never Patient Tobacco Use Status: Current everyday Tobacco user Tobacco use type: Cigarette Cigarette Packs Per Day: 1 Cigarettes Per Day: 20.0 Years Smoked: 15 e-Cigarette/Vaping Use: Never Used Second Hand Smoke Exposure: No Substance Use Type: Crack/Cocaine and Heroin service: No Current occupational status: unemployed Sexual orientation: Transgender Physical Exam ED Vital Signs: Vital Signs - 24 hr 08/13/22 10:08 Temperature 97.9 F Pulse Rate 76 Respiratory Rate 16 Blood Pressure 144/73 H Pulse Oximetry 97 Oxygen Delivery Method Room Air BMI result Body Mass Index 31.7 Const General: cooperative, healthy appearing, comfortable and no acute distress Orientation/consciousness: patient oriented x3 Limitations: no limitations HENMT Head: Yes normal to inspection and Yes atraumatic Ears: hearing grossly normal bilaterally General nose exam: Normal external nose present Face and sinus: Yes normal facial exam Eyes General: appearance normal, both eyes and all related structures EOM: EOMs intact bilaterally Neck Neck: Yes normal visual inspection and Yes no meningeal signs Resp Effort & Inspection: normal respiratory effort and no respiratory distress Auscultation: clear to auscultation bilaterally Cardio Rate: regular rate Heart sounds: S1 normal heart sound present and S2 normal heart sound present Skin Other: + healing abscess noted to right biceps with packing in place. Small surrounding erythema, in previously created lines. Scant amount of expressible +, mildly tender, no fluctuance or induration. + small erythematous abscess with central fluctuance noted to left hand between 2nd and 3rd MCP. No pointing Rashes: no rashes Neuro General: patient oriented x3, tone normal and no meningeal signs Gait exam (Neuro): Normal gait present Extrem General: Yes normal to inspection Medications Administered Discontinued Medications Generic Name Dose Route Start Last Admin Trade Name Freq PRN Reason Stop Dose Admin Lidocaine HCl 5 ml 08/13/22 10:47 08/13/22 12:11 Lidocaine Hcl 1 % Mpf 5 Ml Vial INFILTRATI 08/13/22 10:48 5 ml ONCE ONE Administration Procedures Abscess I/D Site: hand Side (if applicable): left Local Anesthetic: lidocaine 1% Amount of anesthesia used (mL): 2 Technique: incised with blade Sent for culture/gram staining?: No Irrigation: No Packing used?: none Medical Decision Making Medical Decision Making [facility] Narrative: 31-year-old male with a past medical history of ADHD, anxiety, asthma, looking her depression, HTN, IBS, PTSD, polysubstance abuse, IVDA, present to the ED for packing removal to right bicep and abscess to left hand. On exam vital signs stable, NAD, nontoxic appearing, physical exam as above with appropriately healing abscess to right biceps, and new abscess to left hand. Packing removed. Appears appropriately healing. Low suspicion for persistent cellulitis/abscess Clindamycin appropriate for culture Plan: Packing removal, I & D of new abscess Please refer to course for remaining clinical decision making, interpretation of labs/imaging results, and discussions with consultants and/or family members. Differential Diagnosis Differential Diagnoses: The differential diagnosis associated with the presentation includes As above Admission/Observation Consideration of admission/observation: Escalation of care including admission/observation considered Lab Data [facility] Lab Attestation statement: I reviewed the patient's lab results. External Record Review External record reviewed: Inpatient record, Office record, Outpatient record, Prior outpatient labs, Prior outpatient radiology, Primary care record and Outside ED record Tests considered The following testing was considered but not selected: As above Discharge Plan Discharge Clinical Impression: Abscess, Abscess packing removal Patient Disposition: Home, Self-Care Instructions: Abscess Follow-up (ED), Abscess Incision and Drainage (DC) Additional Instructions: Continue taking previously prescribed antibiotic until completion Apply warm compresses to her abscesses If areas began to look worse, have increasing redness, persistent or worsening drainage or you have fever return to the ED Prescriptions: No Action clindamycin HCl 300 mg capsule 300 mg PO QID 10 Days Qty: 40 0RF acetaminophen [Tylenol] 325 mg tablet 650 mg PO Q6H PRN (Reason: fever) Qty: 20 0RF lamotrigine 25 mg tablet 25 mg PO BID prazosin 5 mg capsule 5 mg PO BEDTIME nicotine 21 mg/24 hr patch 24 hour 1 patch transdermal DAILY PRN (Reason: Nicotine Cravings) estradiol 2 mg tablet 2 mg PO TID spironolactone 50 mg tablet 50 mg PO BID escitalopram oxalate 10 mg tablet 10 mg PO DAILY Vyvanse 60 mg capsule 60 mg PO DAILY buprenorphine-naloxone [Suboxone] 8-2 mg film 1 film sublingual TID Qty: 42 0RF Referrals: Physician,Unknown J [Primary Care Provider] - 5 days Interventions: ED Discharge Assessment Last Done: 08/13/22 12:13 Discharge Date/Time: 08/13/22 12:19
[2022-08-13] MEDS: Lidocaine HCl 1 % MPF 5 ML VIAL INFILTRATI (12:11)
--- NOTE | 2022-08-13 12:12 | PC.NURSE ---
Alert and oriented. Reviewed discharge instructions. Patient verbalized need to continue taking prescribed abts`s and apply warm compress.
== END 2022-08-13 12:19 | disposition home or self-care (01) ==
PROVIDERS: Emergency Provider Internal Medicine
DX: L02.512 Cutaneous abscess of left hand (principal); Z79.899 Other long term (current) drug therapy
CPT/HCPCS: 10060; 99284

== ENCOUNTER 2022-08-22 14:43 | Emergency (ER) | payer OTHER, SELFPAY ==
[2022-08-22 14:47] VITALS: BP 158/78; PULSE 60; O2SAT 98; BMI 32.5
--- NOTE | 2022-08-22 14:56 | ED.PSYCH ---
HPI - Psych General Chief Complaint: ETOH/Substance Use Stated Complaint: WANTS DETOX PER EMS Time Seen by Provider: 08/22/22 14:56 Source: patient and EMS Mode of arrival: EMS Limitations: no limitations History of Present Illness HPI Narrative: 31-year-old transgener male to female with a past medical history of ADHD, anxiety, asthma, borderline personality disorder, depression, bipolar 2, HTN, IBS, PTSD, polysubstance abuse on suboxone, IVDA with recent RUE abscess s/p I&D and packing who presents to the ER via EMS from the street seeking detox. She states she has been using a bundle of IV heroin per day, last used yesterday. She has take home doses of Suboxone, usually on 24 mg per day. She had 8mg left over and took that today. She states she can't do this anymore. She is depressed but denies suicidal thoughts or homocidal thoughts. No ETOH use. MD complaint: substance abuse History of same: Yes Exacerbating factors: drug use Context: recent drug abuse Associated psychiatric symptoms: depression Associated symptoms: headache and nausea Treatments prior to arrival: none Related Data Home Medications Medication Instructions Recorded Confirmed escitalopram oxalate 10 mg tablet 10 mg PO DAILY 07/27/22 08/22/22 estradiol 2 mg tablet 2 mg PO TID 07/27/22 08/22/22 lamotrigine 25 mg tablet 25 mg PO BID 07/27/22 08/22/22 lisdexamfetamine 60 mg capsule 60 mg PO DAILY 07/27/22 08/22/22 (Vyvanse) nicotine 21 mg/24 hr daily 1 patch transdermal DAILY PRN 07/27/22 08/22/22 transdermal patch Nicotine Cravings prazosin 5 mg capsule 5 mg PO BEDTIME 07/27/22 08/22/22 spironolactone 50 mg tablet 50 mg PO BID 07/27/22 08/22/22 Previous Rx's Medication Instructions Recorded acetaminophen 325 mg tablet 650 mg PO Q6H PRN fever #20 tabs 08/11/22 (Tylenol) buprenorphine 8 mg-naloxone 2 mg 1 film sublingual TID #42 ea 08/13/22 sublingual film (Suboxone) Allergies Allergy/AdvReac Type Severity Reaction Status Date / Time aripiprazole [From [facility]] Allergy Unknown UNKNOWN Verified 08/22/22 14:59 Review of Systems Review of Systems: Yes all other systems are reviewed and are negative [facility] Past Medical History Medical History Abscess of left upper extremity ADHD Anxiety Asthma Borderline personality disorder Cocaine substance abuse Depression HTN (hypertension) IBS (irritable bowel syndrome) MDD (major depressive disorder), recurrent episode, severe Opiate misuse Opioid use disorder, severe, dependence Perianal cyst Polysubstance abuse PTSD (post-traumatic stress disorder) PTSD (post-traumatic stress disorder) Tibial torsion, bilateral Social History Social History Household Members: None Housing: Homeless Housing Other:: [place] [facility] Do you presently have visiting nurse or other home services: No Unable to assess alcohol history related to: Refusing to respond Alcohol intake: never Patient Tobacco Use Status: Current everyday Tobacco user Tobacco use type: Cigarette Cigarette Packs Per Day: 1 Cigarettes Per Day: 20.0 Years Smoked: 15 Smoked in Last 30 Days: Yes e-Cigarette/Vaping Use: Never Used Second Hand Smoke Exposure: No Use of substances other than those prescribed or required for medical reasons: No Substance Use Type: Crack/Cocaine and Heroin Substance Use Frequency: Chronic Longstanding Advance Directives: No Advance Directives Information Provided: No service: No Current occupational status: unemployed Sexual orientation: Transgender Physical Exam Vital Signs: Vital Signs: Last Vital Signs Temp 98.2 F 08/23/22 13:43 Pulse 83 08/23/22 14:00 Resp 12 08/23/22 14:00 BP 153/89 H 08/23/22 14:00 Pulse Ox 96 08/23/22 14:00 O2 Del Method Room Air 08/23/22 14:00 BMI result Body Mass Index 32.5 Appearance: Alert. Oriented X3. Malodorous, disheveled Head: normocephalic, atraumatic. Eyes: Pupils equal, round and reactive to light. Neck: Normal inspection. CVS: Normal heart rate and rhythm. Pulses normal. Respiratory: No respiratory distress. Abdomen: Soft and nontender. +BS x4 Skin: Skin warm and dry. Normal skin color. Normal skin turgor. No rashes. Extremities: No lower extremity edema. No joint swelling. Healing abscess of right bicep, no surrounding erythema or warmth. track perez on bilateral lower arms. Neuro/psych: Oriented X 3. No motor deficit. No sensory deficit. CN II-XII intact. Normal speech and cognition. Depressed mood, flat affect. not suicidial, no AH/VH Course Reevaluation(s) Reevaluation #1: no acute overnight events. pending detox placement. home meds restarted Time: 13:05 Reevaluation #2: unable to be placed at a detox. case d/w Laisha Huff NP who the patient sees as an outpatient - not due to suboxone refilled until tuesday. plan to give dose of sublocade today, dose available in the pharmacy. patient is stable for discharge. physician observation discontinued at this time. care team to provide longterm lists Time: 16:32 Medications Administered Generic Name Dose Route Start Last Admin Trade Name Freq PRN Reason Stop Dose Admin Buprenorphine/Naloxone 1 film 08/23/22 09:00 08/23/22 15:12 Buprenorphine/Naloxone 8/2 Mg Film SUBLINGUAL 1 film TID ANGELES Administration Escitalopram Oxalate 10 mg 08/23/22 09:00 08/23/22 10:30 Escitalopram Oxalate 10 Mg Tablet PO 10 mg DAILY ANGELES Administration Estradiol 2 mg 08/23/22 09:00 08/23/22 15:12 Estradiol 0.5 Mg Tablet PO 2 mg TID ANGELES Administration Lamotrigine 25 mg 08/23/22 09:00 08/23/22 10:30 Lamotrigine 25 Mg Tablet PO 25 mg BID ANGELES Administration Spironolactone 50 mg 08/23/22 09:00 08/23/22 10:30 Spironolactone 25 Mg Tablet PO 50 mg BID ANGELES Administration Protocol Discontinued Medications Generic Name Dose Route Start Last Admin Trade Name Freq PRN Reason Stop Dose Admin Buprenorphine/Naloxone 1 film 08/23/22 00:17 08/23/22 00:20 Buprenorphine/Naloxone 8/2 Mg Film SUBLINGUAL 08/23/22 00:18 1 film ONCE ONE Administration Lorazepam 2 mg 08/23/22 13:47 08/23/22 14:01 Lorazepam 1 Mg Tablet PO 08/23/22 13:48 2 mg ONCE ONE Administration Medical Decision Making Medical Decision Making MDM Narrative: 31-year-old transgener male to female with a past medical history of ADHD, anxiety, asthma, borderline personality disorder, depression, bipolar 2, HTN, IBS, PTSD, polysubstance abuse on suboxone, IVDA with recent RUE abscess s/p I&D and packing who presents to the ER via EMS from the street seeking detox. She state she is symptomatic and feels like she is withdrawing. Last heroin use yesterday. Will get medical clearance labs, utox, etoh level and have patient seen by Recovery team for possible detox placement. \ -MAsspat was checked, patient does take Suboxone 8/2 mg 3 times a day. Patient was given a dose at 00:19 Differential Diagnosis Differential Diagnoses: The differential diagnosis associated with the presentation includes substance induced mood disorder, acute psychosis, schizophrenia, schizoaffective disorder, PTSD, bipolar disorder, major depression with psychotic features Consult Healthcare Provider Management of the patient was discussed with: Broth Setter Lab Data [facility] Lab Attestation statement: I reviewed the patient's lab results. 08/22/22 15:59 08/22/22 15:59 Labs: Lab Results 08/22/22 08/22/22 08/22/22 Range/Units 15:59 15:59 15:59 WBC 11.2 H (4.8-10.8) X10*3/uL RBC 4.00 L (4.60-5.80) X10*6/uL Hgb 11.2 L (14.0-18.0) g/dl Hct 33.8 L (42.0-52.0) % MCV 84.5 (80.0-98.0) fL MCH 28.0 (27.0-33.0) pg MCHC 33.1 (31.0-36.0) g/dl RDW 15.1 (11.0-16.0) % Plt Count 398 D (160-400) X10*3/uL MPV 9.4 (9.4-12.4) fL Immature Gran % (Auto) 0.3 (0.0-0.4) % Neut % (Auto) 83.6 H (45-73) % Lymph % (Auto) 13.8 L (20-40) % Cache % (Auto) 1.9 L (2-11) % Eos % (Auto) 0.1 (0-4) % Baso % (Auto) 0.3 (0-2) % Lymph # (Auto) 1.6 (1.2-4.9) X10*3/uL Cache # (Auto) 0.2 (0.1-1.2) X10*3/uL Eos # (Auto) 0.0 (0.0-0.4) X10*3/uL Baso # (Auto) 0.0 (0.0-0.2) X10*3/uL Abs Immat Gran (auto) 0.03 (0.00-0.03) X10*3/uL Absolute Neuts (auto) 9.4 H (2.0-8.3) x10*3/uL Absolute Nucleated RBC 0.000 (0.0-0.012) X10*3/uL Nucleated RBC % (auto) 0.0 (0.0-0.2) /100WBC Sodium 138 (135-145) mmol/L Potassium 3.2 L (3.3-5.1) mmol/L Chloride 103 (96-108) mmol/L Carbon Dioxide 25 (22-29) mmol/L Anion Gap 13 (12-20) BUN 13 (9-16) mg/dL Creatinine 0.57 (0.5-1.4) mg/dL Estim Creat Clear Calc 214.6 Estimated GFR > 60 Random Glucose 157 H (60-115) mg/dL Calcium 8.8 (8.4-10.2) mg/dL Magnesium 1.5 L (1.6-2.6) mg/dL Total Bilirubin 0.7 (0.0-1.0) mg/dL Direct Bilirubin 0.2 (0.0-0.5) mg/dL AST 150 H (5-37) U/L ALT 247 H (0-40) U/L Alkaline Phosphatase 81 (39-117) U/L Total Protein 6.2 L (6.5-8.0) g/dL Albumin 3.0 L (3.5-5.0) g/dL Urine Color Urine Appearance Urine pH (5.0-9.0) Ur Specific Wentworth (1.005-1.025) Urine Protein (Neg-Trace) mg/dL Urine Glucose (UA) (Negative) mg/dL Urine Ketones (Negative) mg/dL Urine Blood (Negative) Urine Nitrite (Negative) Ur Leukocyte Esterase (Negative) Urine RBC (0-2) /HPF Urine WBC (0-5) /HPF Ur Squamous Epith Cells (0-2) /HPF Urine Bacteria (None Seen) Hyaline Casts (0-2) /LPF Urine Opiates Screen (Not Detect) Urine Fentanyl Screen (Not Detect) Ur Barbiturates Screen (Not Detect) Ur Phencyclidine Scrn (Not Detect) Ur Amphetamines Screen (Not Detect) U Benzodiazepines Scrn (Not Detect) Urine Cocaine Screen (Not Detect) U Marijuana (THC) Screen (Not Detect) Ethyl Alcohol mg/dL COVID-19 (LOS) Negative (Negative) COVID-19 Clin Com See Note 08/22/22 08/22/22 08/22/22 Range/Units 15:59 17:36 17:36 WBC (4.8-10.8) X10*3/uL RBC (4.60-5.80) X10*6/uL Hgb (14.0-18.0) g/dl Hct (42.0-52.0) % MCV (80.0-98.0) fL MCH (27.0-33.0) pg MCHC (31.0-36.0) g/dl RDW (11.0-16.0) % Plt Count (160-400) X10*3/uL MPV (9.4-12.4) fL Immature Gran % (Auto) (0.0-0.4) % Neut % (Auto) (45-73) % Lymph % (Auto) (20-40) % Cache % (Auto) (2-11) % Eos % (Auto) (0-4) % Baso % (Auto) (0-2) % Lymph # (Auto) (1.2-4.9) X10*3/uL Cache # (Auto) (0.1-1.2) X10*3/uL Eos # (Auto) (0.0-0.4) X10*3/uL Baso # (Auto) (0.0-0.2) X10*3/uL Abs Immat Gran (auto) (0.00-0.03) X10*3/uL Absolute Neuts (auto) (2.0-8.3) x10*3/uL Absolute Nucleated RBC (0.0-0.012) X10*3/uL Nucleated RBC % (auto) (0.0-0.2) /100WBC Sodium (135-145) mmol/L Potassium (3.3-5.1) mmol/L Chloride (96-108) mmol/L Carbon Dioxide (22-29) mmol/L Anion Gap (12-20) BUN (9-16) mg/dL Creatinine (0.5-1.4) mg/dL Estim Creat Clear Calc Estimated GFR Random Glucose (60-115) mg/dL Calcium (8.4-10.2) mg/dL Magnesium (1.6-2.6) mg/dL Total Bilirubin (0.0-1.0) mg/dL Direct Bilirubin (0.0-0.5) mg/dL AST (5-37) U/L ALT (0-40) U/L Alkaline Phosphatase (39-117) U/L Total Protein (6.5-8.0) g/dL Albumin (3.5-5.0) g/dL Urine Color Yellow Urine Appearance Clear Urine pH 6.0 (5.0-9.0) Ur Specific [place]worth 1.020 (1.005-1.025) Urine Protein Negative (Neg-Trace) mg/dL Urine Glucose (UA) Negative (Negative) mg/dL Urine Ketones Trace (Negative) mg/dL Urine Blood Negative (Negative) Urine Nitrite Negative (Negative) Ur Leukocyte Esterase Trace H (Negative) Urine RBC 0-2 (0-2) /HPF Urine WBC 0-5 (0-5) /HPF Ur Squamous Epith Cells 3-5 (0-2) /HPF Urine Bacteria None Seen (None Seen) Hyaline Casts 0-2 (0-2) /LPF Urine Opiates Screen Not Detected (Not Detect) Urine Fentanyl Screen POSITIVE H (Not Detect) Ur Barbiturates Screen Not Detected (Not Detect) Ur Phencyclidine Scrn Not Detected (Not Detect) Ur Amphetamines Screen Not Detected (Not Detect) U Benzodiazepines Scrn Not Detected (Not Detect) Urine Cocaine Screen POSITIVE H (Not Detect) U Marijuana (THC) Screen POSITIVE H (Not Detect) Ethyl Alcohol < 10 mg/dL COVID-19 (LOS) (Negative) COVID-19 Clin Com Independent Historian Clinical information obtained from an independent historian. History obtained from or confirmed by: EMS External Record Review External record reviewed: Outpatient record, Prior outpatient labs and Prior outpatient radiology Prescription Management I considered prescription management with: Other (suboxone) Chronic Conditions Patient?s care impacted by: Other (polysubstance abuse) Social Determinants Patient?s care significantly limited by Social Determinants of Health including: Inadequate housing, Alcoholism and drug addiction in family, Problems related to primary support group, Unemployment and Other Social Determinant of Health Critical Care Time Critical Care Time Critical Care Time: No Discharge Plan Discharge Clinical Impression: Opioid use disorder Patient Disposition: Home, Self-Care Instructions: Opioid Use Disorder (ED) Additional Instructions: do not use heroin, alcohol or illicit substances Prescriptions: No Action acetaminophen [Tylenol] 325 mg tablet 650 mg PO Q6H PRN (Reason: fever) Qty: 20 0RF lamotrigine 25 mg tablet 25 mg PO BID prazosin 5 mg capsule 5 mg PO BEDTIME nicotine 21 mg/24 hr patch 24 hour 1 patch transdermal DAILY PRN (Reason: Nicotine Cravings) estradiol 2 mg tablet 2 mg PO TID spironolactone 50 mg tablet 50 mg PO BID escitalopram oxalate 10 mg tablet 10 mg PO DAILY Vyvanse 60 mg capsule 60 mg PO DAILY buprenorphine-naloxone [Suboxone] 8-2 mg film 1 film sublingual TID Qty: 42 0RF
[2022-08-22 15:17] VITALS: BP 141/78; PULSE 71; RESP 16; TEMP 37.6; O2SAT 97
--- NOTE | 2022-08-22 15:25 | PC.NURSE ---
Pt arrived by EMS, pt stating they want detox, pt reporting I use one bundle of heroin a day, and suboxone pt reporting his suboxone dose as 24mg, but gets take home doseage and only took 8mg this morning because that is all they had left. Denying SI/HI at this time. groover operator with security, belongings took to security d/t bugs/open needles. Lab work ordered and being obtained. Recovery team already in to touch base with pt at this time.
[2022-08-22 16:10] LABS: MANUAL DIFF FLAG NO
[2022-08-22 16:16] LABS: Basophils Percent Auto 0.3 % (0-2); Eosinophils Percent Auto 0.1 % (0-4); Hematocrit 33.8 % (42.0-52.0); Hemoglobin 11.2 g/dl (14.0-18.0); Imm Gran Abs Auto 0.03 X10*3/uL (0.00-0.03); Imm Gran Pct Auto 0.3 % (0.0-0.4); Lymphocytes Absolute Auto 1.6 X10*3/uL (1.2-4.9); Lymphocytes Percent Auto 13.8 % (20-40); Mean Corpuscular HGB Conc 33.1 g/dl (31.0-36.0); Mean Corpuscular Volume 84.5 fL (80.0-98.0); Mean Platelet Volume 9.4 fL (9.4-12.4); Monocytes Absolute Auto 0.2 X10*3/uL (0.1-1.2); Monocytes Percent Auto 1.9 % (2-11); Neutrophils Absolute Auto 9.4 x10*3/uL (2.0-8.3); Neutrophils Percent Auto 83.6 % (45-73); Platelet Count 398 X10*3/uL (160-400); Red Cell Distribution Width 15.1 % (11.0-16.0); White Blood Count 11.2 X10*3/uL (4.8-10.8)
--- NOTE | 2022-08-22 16:16 | MHC.RECOVSUP ---
Met with pt in [facility] who is here for [facility] and seeking ATS. Pt informs she is ready for ATS this time and wants help. Pt has been using 1 bundle of heroin a day intravenously in addition to her 24mg of Suboxone. ATS Bed search in process, no beds available but will check back with Kory in the morning. Provider is aware of plan.
[2022-08-22 16:33] LABS: COVID-19 Test Negative (Negative); IDNOW Serial# 08D9AD1C
[2022-08-22 16:39] LABS: Alanine Aminotransferase 247 U/L (0-40); Alkaline Phosphatase 81 U/L (39-117); Anion Gap 13 (12-20); Aspartate Amino Transferase 150 U/L (5-37); Bilirubin Direct 0.2 mg/dL (0.0-0.5); Bilirubin Total 0.7 mg/dL (0.0-1.0); Blood Urea Nitrogen 13 mg/dL (9-16); Calcium 8.8 mg/dL (8.4-10.2); Carbon Dioxide 25 mmol/L (22-29); Chloride 103 mmol/L (96-108); Creatinine Clr Calc Pharmacy 214.6; Estimated Glomerular Filt Rate > 60; Glucose Random 157 mg/dL (60-115); Magnesium 1.5 mg/dL (1.6-2.6); Potassium 3.2 mmol/L (3.3-5.1); Sodium 138 mmol/L (135-145); Total Protein 6.2 g/dL (6.5-8.0)
[2022-08-22 16:40] LABS: Ethanol < 10 mg/dL
[2022-08-22 17:44] LABS: Appearance Urine Clear; Color Urine Yellow; Glucose Urine UA Negative (Negative); Leukocyte Esterase Urine Trace (Negative); Nitrite Urine Negative (Negative); UMIC TRIGGER UACC YES; Urine Blood Negative (Negative); Urine Ketones Trace mg/dL (Negative); Urine Protein Negative (Neg-Trace)
[2022-08-22 17:49] LABS: Bacteria Urine None Seen (None Seen); Hyaline Casts Urine 0-2 /LPF (0-2); RBC Urine 0-2 /HPF (0-2); WBC Urine 0-5 /HPF (0-5)
[2022-08-22 17:53] LABS: Amphetamine Screen Urine Not Detected (Not Detect); Barbiturates, Urine Not Detected (Not Detect); Benzodiazepines Screen Urine Not Detected (Not Detect); Cannabinoid Screen Urine POSITIVE (Not Detect); Cocaine Screen Urine POSITIVE (Not Detect); Fentanyl, urine POSITIVE (Not Detect); Opiate Screen Urine Not Detected (Not Detect); Phencyclidine Screen Urine Not Detected (Not Detect)
[2022-08-23 00:06] VITALS: BP 165/101; PULSE 75; RESP 19; TEMP 36.8; O2SAT 97
[2022-08-23 00:11] VITALS: PULSE 75
[2022-08-23] MEDS: Buprenorphine/Naloxone 8/2 mg FILM 1 FILM SUBLINGUAL ×3 (00:20→15:12)
[2022-08-23 07:52] VITALS: BP 151/88; PULSE 78; RESP 14; TEMP 37.1; O2SAT 99
--- NOTE | 2022-08-23 09:48 | MHC.RECOVRN ---
Briefly met with pt, pt c/o withdrawal and asking for Suboxone. Pt continues to be interested in ATS. Awaiting notification from [facility] regarding bed availability. RN aware.
[2022-08-23] MEDS: lamoTRIgine 25 MG TABLET PO (10:30)
[2022-08-23] MEDS: Escitalopram Oxalate 10 MG TABLET PO (10:30)
[2022-08-23] MEDS: Spironolactone 25 MG TABLET 50 MG PO (10:30)
[2022-08-23] MEDS: estradioL 0.5 MG TABLET 2 MG PO ×2 (10:31→15:12)
[2022-08-23 13:43] VITALS: BP 142/101; PULSE 77; RESP 17; TEMP 36.8; O2SAT 98
[2022-08-23 14:00] VITALS: BP 153/89; PULSE 83; RESP 12; O2SAT 96
[2022-08-23] MEDS: LORazepam 1 MG TABLET 2 MG PO (14:01)
--- NOTE | 2022-08-23 14:02 | PC.NURSE ---
pt reporting feeling diaphoretic and not right . CIWA a 0. VSS except for a BP of 142/101 - Yomaira JOHNSTON made aware of pts condition and BP. requested order for for Ativan. 2mg Ativan given per MAY. encouraged pt to shower to help her feel better at this time.
--- NOTE | 2022-08-23 14:27 | MHC.RECOVRN ---
[facility] does not have bed availability today. Pt, RN, and ED provider aware.
--- NOTE | 2022-08-23 14:57 | PC.NURSE ---
pt up to shower - reports feeling a little better.
--- NOTE | 2022-08-23 16:59 | MHC.RECOVRN ---
Plan of care reviewed with Provider Laisha Hfuf pt to receive BUP INJ and follow up with [facility]. Patient administered 300mg Sublocade INJ by this resume writer. Patient reminded to monitor for infection, pain, redness, swelling, exudate, fever and call [facility]. Pt verbalized understanding. Patient given bus passes. This resume writer reviewed [facility] options and process with Patient, i.e. [facility], Erna Dhillon. Patient given contact information to follow up with shelters. Pt verbalized understanding.
--- NOTE | 2022-08-23 17:24 | PC.NURSE ---
Patient medicated with Sublocade by Em, RN. Plan to discharge patient and attempting to find care home for patient to go to with CARE Team's help. Patient will be discharged to front of hospital to await Zachariah.
== END 2022-08-23 18:55 | disposition home or self-care (01) ==
PROVIDERS: Physician Assistant; Emergency Provider Student in an Organized Health Care Education/Training Program
DX: F11.20 Opioid dependence, uncomplicated (principal); F19.10 Other psychoactive substance abuse, uncomplicated; F33.9 Major depressive disorder, recurrent, unspecified; I10 Essential (primary) hypertension; F64.0 Transsexualism; F17.210 Nicotine dependence, cigarettes, uncomplicated; Z79.899 Other long term (current) drug therapy
CPT/HCPCS: 80048; 80076; 80307; 81001; 83735; 85025; 87635; 99285

== ENCOUNTER → 2022-08-23 15:45 | Outpatient (BNVA) | payer OTHER, SELFPAY | DX: F11.20 Opioid dependence, uncomplicated (principal) | CPT/HCPCS: 96372 ==

== ENCOUNTER 2022-09-18 23:53 | Emergency (ER) | payer OTHER, SELFPAY ==
[2022-09-19 00:09] VITALS: BP 137/77; PULSE 84; RESP 18; TEMP 36.9; O2SAT 96; BMI 29.7
[2022-09-19 01:56] LABS: MANUAL DIFF FLAG NO
[2022-09-19 01:57] LABS: Basophils Absolute Auto 0.1 X10*3/uL (0.0-0.2); Basophils Percent Auto 0.4 % (0-2); Eosinophils Absolute Auto 0.2 X10*3/uL (0.0-0.4); Eosinophils Percent Auto 1.3 % (0-4); Hematocrit 33.8 % (42.0-52.0); Hemoglobin 10.9 g/dl (14.0-18.0); Imm Gran Abs Auto 0.03 X10*3/uL (0.00-0.03); Imm Gran Pct Auto 0.3 % (0.0-0.4); Lymphocytes Absolute Auto 2.6 X10*3/uL (1.2-4.9); Lymphocytes Percent Auto 23.1 % (20-40); Mean Corpuscular HGB Conc 32.2 g/dl (31.0-36.0); Mean Corpuscular Hemoglobin 27.3 pg (27.0-33.0); Mean Corpuscular Volume 84.7 fL (80.0-98.0); Mean Platelet Volume 8.9 fL (9.4-12.4); Monocytes Absolute Auto 0.8 X10*3/uL (0.1-1.2); Monocytes Percent Auto 7.3 % (2-11); Neutrophils Absolute Auto 7.7 x10*3/uL (2.0-8.3); Neutrophils Percent Auto 67.6 % (45-73); Platelet Count 283 X10*3/uL (160-400); Red Blood Count 3.99 X10*6/uL (4.60-5.80); Red Cell Distribution Width 14.1 % (11.0-16.0); White Blood Count 11.4 X10*3/uL (4.8-10.8)
[2022-09-19 02:16] VITALS: RESP 18
[2022-09-19 02:23] LABS: Alanine Aminotransferase 15 U/L (0-40); Albumin Level 3.4 g/dL (3.5-5.0); Alkaline Phosphatase 61 U/L (39-117); Anion Gap 14 (12-20); Aspartate Amino Transferase 20 U/L (5-37); Bilirubin Total 0.3 mg/dL (0.0-1.0); Blood Urea Nitrogen 22 mg/dL (9-16); Calcium 9.3 mg/dL (8.4-10.2); Carbon Dioxide 27 mmol/L (22-29); Chloride 102 mmol/L (96-108); Creatinine Clr Calc Pharmacy 142.9; Estimated Glomerular Filt Rate > 60; Glucose Random 141 mg/dL (60-115); Potassium 3.5 mmol/L (3.3-5.1); Sodium 139 mmol/L (135-145); Total Protein 6.5 g/dL (6.5-8.0)
--- NOTE | 2022-09-19 03:02 | ED_ITS ---
HPI - Skin/Abscess/Foreign Bdy General Chief complaint: Skin/Abscess/Foreign Body Stated complaint: Abscess Time Seen by Provider: 09/19/22 02:50 Source: patient Mode of arrival: ambulatory Limitations: no limitations History of Present Illness HPI narrative: Patient comes to the emergency room complaining of an abscess in the left forearm. Patient admits to IV drug use. Patient states it has been there for approximately 2-3 days. Denies fever chills. Complaining of localized pain. Patient states that he has no pain in the hand or fingers. Related Data Home Medications Medication Instructions Recorded Confirmed escitalopram oxalate 10 mg tablet 10 mg PO DAILY 07/27/22 08/22/22 estradiol 2 mg tablet 2 mg PO TID 07/27/22 08/22/22 lamotrigine 25 mg tablet 25 mg PO BID 07/27/22 08/22/22 lisdexamfetamine 60 mg capsule 60 mg PO DAILY 07/27/22 08/22/22 (Vyvanse) nicotine 21 mg/24 hr daily 1 patch transdermal DAILY PRN 07/27/22 08/22/22 transdermal patch Nicotine Cravings prazosin 5 mg capsule 5 mg PO BEDTIME 07/27/22 08/22/22 spironolactone 50 mg tablet 50 mg PO BID 07/27/22 08/22/22 Previous Rx's Medication Instructions Recorded acetaminophen 325 mg tablet 650 mg PO Q6H PRN fever #20 tabs 08/11/22 (Tylenol) buprenorphine 8 mg-naloxone 2 mg 1 film sublingual TID #42 ea 08/13/22 sublingual film (Suboxone) sulfamethoxazole 800 1 tab PO BID #14 tabs 09/19/22 mg-trimethoprim 160 mg tablet (Bactrim DS) Allergies Allergy/AdvReac Type Severity Reaction Status Date / Time aripiprazole [From ABILIFY] Allergy Unknown UNKNOWN Verified 08/22/22 14:59 Review of Systems Review of Systems: Constitutional : No Weight loss, No Fever, No Chills, No Night Sweats, No Fatigue, No Malaise ENT/Mouth : No Hearing loss, No Ear Pain, No Nasal Congestion, No Sinus Pain, No Hoarseness, No sore throat, No Rhinorrhea, No Swallowing Difficulty Eyes: No Eye Pain, No Swelling, No Redness, No Foreign Body, No Discharge, No Vision Changes Cardiovascular : No Chest Pain, No SOB, No Dyspnea on Exertion, No Orthopnea, No Edema, No Palpitations Respiratory : No Cough, No Sputum, No Wheezing, No Smoke Exposure, No Dyspnea Gastrointestinal : No Nausea, No Vomiting, No Diarrhea, No Constipation, No abdominal Pain, No Hematochezia, No Melena Genitourinary : no irregular bleeding, No Dysuria, No Urinary Frequency, No Hematuria, No Urinary Incontinence, No Urgency, No Flank Pain, No Urinary Flow Changes, No Hesitancy Musculoskeletal : No joint pain, No Myalgias, No Joint Swelling Skin : Complaining of an abscess/cellulitis in the left forearm Neuro : No Weakness, No Numbness, No Paresthesias, No Loss of Consciousness, No Dizziness, No Headache Psych : No Anxiety/Panic, No Depression, No SI/HI/AH/VH, No Social Issues, Heme/Lymph: No Bruising, No Bleeding,No Lymphadenopathy Endocrine : No Polyuria, No Polydipsia, No Temperature Intolerance PMFSH Past Medical History Medical History Abscess of left upper extremity ADHD Anxiety Asthma Borderline personality disorder Cocaine substance abuse Depression HTN (hypertension) IBS (irritable bowel syndrome) MDD (major depressive disorder), recurrent episode, severe Opiate misuse Opioid use disorder, severe, dependence Perianal cyst Polysubstance abuse PTSD (post-traumatic stress disorder) PTSD (post-traumatic stress disorder) Tibial torsion, bilateral Social History Social History Household Members: None Housing: Homeless Housing Other:: [employer] [facility] Do you presently have visiting nurse or other home services: No Unable to assess alcohol history related to: Refusing to respond Alcohol intake: never Patient Tobacco Use Status: Current everyday Tobacco user Tobacco use type: Cigarette Cigarette Packs Per Day: 1 Cigarettes Per Day: 20.0 Years Smoked: 15 e-Cigarette/Vaping Use: Never Used Second Hand Smoke Exposure: No Substance Use Type: Crack/Cocaine and Heroin Advance Directives: No Advance Directives Information Provided: Yes service: No Current occupational status: unemployed Sexual orientation: Transgender Physical Exam Vital Signs: Vital Signs: Last Vital Signs Temp 98.4 F 09/19/22 00:09 Pulse 84 09/19/22 00:09 Resp 18 09/19/22 02:16 BP 137/77 09/19/22 00:09 Pulse Ox 96 09/19/22 00:09 O2 Del Method Room Air 09/19/22 00:09 BMI result Body Mass Index 29.7 Const: Other: Appearance: Alert. Oriented X3. No acute distress. Eyes: Pupils equal, round and reactive to light. ENT: Pharynx normal. Neck: Normal inspection. Neck supple. No lymph nodes noted. No crepitus CVS: Normal heart rate and rhythm. Pulses normal. Normal S1 and S2 Respiratory: No respiratory distress. Breath sounds normal. No Wheezing. No rales Abdomen: Soft and nontender. No rigidity. No distention. Skin: Skin warm and dry. There is cellulitis in the left forearm anteriorly. On bedside ultrasound, approximately 1 cm beneath the skin, there are 2 abscesses, 1 cm each, seemed to be loculated Extremities: No lower extremity edema. No Lacerations. No Rash , see skin above Neuro: Oriented X 3. No motor deficit. No sensory deficit. Moving all extremities. No slurred speech. CN 2 through 12 grossly intact Psych: calm, cooperative, normal affect Medical Decision Making Medical Decision Making [facility] Narrative: -I discussed the physical exam with the patient. Patient has 2 loculated abscesses in the left forearm. Patient may need IV antibiotics, admission considered. -patient able to flex and extend all fingers. Tenosynovitis not suspected -I discussed with the patient that this abscess is should be drained. However, patient asked if we can give her p.o. antibiotics and if this does not improve, she will return tomorrow. I discussed with the patient that very likely she will end up returning. Patient declined incision and drainage at this time. -my interpretation of hematology, white blood cell count elevated, chronic. -patient expected to return for inpatient treatment within 48 hours Differential Diagnosis Differential Diagnoses: The differential diagnosis associated with the presentation includes (Abscess, cellulitis) Admission/Observation Consideration of admission/observation: Escalation of care including admission/observation considered Lab Data [facility] Lab Attestation statement: I reviewed the patient's lab results. 09/19/22 01:51 09/19/22 01:51 Labs: Lab Results 09/19/22 09/19/22 Range/Units 01:51 01:51 WBC 11.4 H (4.8-10.8) X10*3/uL RBC 3.99 L (4.60-5.80) X10*6/uL Hgb 10.9 L (14.0-18.0) g/dl Hct 33.8 L (42.0-52.0) % MCV 84.7 (80.0-98.0) fL MCH 27.3 (27.0-33.0) pg MCHC 32.2 (31.0-36.0) g/dl RDW 14.1 (11.0-16.0) % Plt Count 283 D (160-400) X10*3/uL MPV 8.9 L (9.4-12.4) fL Immature Gran % (Auto) 0.3 (0.0-0.4) % Neut % (Auto) 67.6 (45-73) % Lymph % (Auto) 23.1 (20-40) % [place] % (Auto) 7.3 (2-11) % Eos % (Auto) 1.3 (0-4) % Baso % (Auto) 0.4 (0-2) % Lymph # (Auto) 2.6 (1.2-4.9) X10*3/uL [place] # (Auto) 0.8 (0.1-1.2) X10*3/uL Eos # (Auto) 0.2 (0.0-0.4) X10*3/uL Baso # (Auto) 0.1 (0.0-0.2) X10*3/uL Abs Immat Gran (auto) 0.03 (0.00-0.03) X10*3/uL Absolute Neuts (auto) 7.7 (2.0-8.3) x10*3/uL Absolute Nucleated RBC 0.000 (0.0-0.012) X10*3/uL Nucleated RBC % (auto) 0.0 (0.0-0.2) /100WBC Sodium 139 (135-145) mmol/L Potassium 3.5 (3.3-5.1) mmol/L Chloride 102 (96-108) mmol/L Carbon Dioxide 27 (22-29) mmol/L Anion Gap 14 (12-20) BUN 22 H (9-16) mg/dL Creatinine 0.82 (0.5-1.4) mg/dL Estim Creat Clear Calc 142.9 Estimated GFR > 60 Random Glucose 141 H (60-115) mg/dL Calcium 9.3 (8.4-10.2) mg/dL Total Bilirubin 0.3 (0.0-1.0) mg/dL AST 20 (5-37) U/L ALT 15 (0-40) U/L Alkaline Phosphatase 61 (39-117) U/L Total Protein 6.5 (6.5-8.0) g/dL Albumin 3.4 L (3.5-5.0) g/dL Critical Care Time Critical Care Time Critical Care Time: Yes Total Critical Care Time: 30 Attestation: I have personally provided critical care time. Time includes review of lab data, radiology results, discussion with consultants, and monitoring for potential decompensation. Intervention performed as documented. Discharge Plan Discharge Clinical Impression: Abscess of forearm, left Patient Disposition: Home, Self-Care Instructions: Abscess (ED) Additional Instructions: If the abscess gets any bigger or if you have any new symptoms, you to return to the emergency room. Please follow-up with your primary care physician tomorrow. If you have any worsening or new symptoms, please return to the emergency room or call 911 Prescriptions: New sulfamethoxazole-trimethoprim [Bactrim DS] 800-160 mg tablet 1 tab PO BID Qty: 14 0RF No Action acetaminophen [Tylenol] 325 mg tablet 650 mg PO Q6H PRN (Reason: fever) Qty: 20 0RF lamotrigine 25 mg tablet 25 mg PO BID prazosin 5 mg capsule 5 mg PO BEDTIME nicotine 21 mg/24 hr patch 24 hour 1 patch transdermal DAILY PRN (Reason: Nicotine Cravings) estradiol 2 mg tablet 2 mg PO TID spironolactone 50 mg tablet 50 mg PO BID escitalopram oxalate 10 mg tablet 10 mg PO DAILY Vyvanse 60 mg capsule 60 mg PO DAILY buprenorphine-naloxone [Suboxone] 8-2 mg film 1 film sublingual TID Qty: 42 0RF
[2022-09-19] MEDS: Sulfamethox/Trimeth 800/160 TABLET 1 TAB PO (03:20)
== END 2022-09-19 03:29 | disposition home or self-care (01) ==
PROVIDERS: Emergency Provider Emergency Medicine
DX: L02.414 Cutaneous abscess of left upper limb (principal); L03.114 Cellulitis of left upper limb; F14.10 Cocaine abuse, uncomplicated; F17.210 Nicotine dependence, cigarettes, uncomplicated; F11.10 Opioid abuse, uncomplicated; Z71.6 Tobacco abuse counseling; Z79.899 Other long term (current) drug therapy
CPT/HCPCS: 36415; 80053; 85025; 99284

== ENCOUNTER 2022-09-29 00:22 | Emergency (ER) | payer OTHER, SELFPAY ==
[2022-09-29 00:49] VITALS: BP 136/84; PULSE 95; RESP 17; TEMP 36.8; O2SAT 98; BMI 28.9
[2022-09-29 01:35] LABS: Appearance Urine Clear; Color Urine Yellow; Glucose Urine UA Negative (Negative); Leukocyte Esterase Urine Negative (Negative); Nitrite Urine Negative (Negative); PH 5.5 (5.0-9.0); Specific Gravity - Urine >= 1.030 (1.005-1.025); Urine Blood Negative (Negative); Urine Ketones Trace mg/dL (Negative); Urine Protein Trace mg/dL (Neg-Trace)
--- NOTE | 2022-09-29 01:36 | ED.PSYCH ---
HPI - Psych General Chief Complaint: Psychiatric Symptoms Stated Complaint: SI Time Seen by Provider: 09/29/22 00:58 Source: patient Mode of arrival: ambulatory Limitations: no limitations History of Present Illness HPI Narrative: Patient comes emergency room complaining of depression. Patient states that she has been considering jumping in front of cars and being people to hit her with their vehicles. Admits to using heroin and crack, use alcohol yesterday. Related Data Home Medications Medication Instructions Recorded Confirmed No Known Home Meds 09/29/22 09/29/22 Allergies Allergy/AdvReac Type Severity Reaction Status Date / Time aripiprazole [From ABILIFY] Allergy Unknown UNKNOWN Verified 08/22/22 14:59 Review of Systems Review of Systems: Constitutional : No Weight loss, No Fever, No Chills, No Night Sweats, No Fatigue, No Malaise ENT/Mouth : No Hearing loss, No Ear Pain, No Nasal Congestion, No Sinus Pain, No Hoarseness, No sore throat, No Rhinorrhea, No Swallowing Difficulty Eyes: No Eye Pain, No Swelling, No Redness, No Foreign Body, No Discharge, No Vision Changes Cardiovascular : No Chest Pain, No SOB, No Dyspnea on Exertion, No Orthopnea, No Edema, No Palpitations Respiratory : No Cough, No Sputum, No Wheezing, No Smoke Exposure, No Dyspnea Gastrointestinal : No Nausea, No Vomiting, No Diarrhea, No Constipation, No abdominal Pain, No Hematochezia, No Melena Genitourinary : no irregular bleeding, No Dysuria, No Urinary Frequency, No Hematuria, No Urinary Incontinence, No Urgency, No Flank Pain, No Urinary Flow Changes, No Hesitancy Musculoskeletal : No joint pain, No Myalgias, No Joint Swelling Skin : No Skin Lesions, No rash Neuro : No Weakness, No Numbness, No Paresthesias, No Loss of Consciousness, No Dizziness, No Headache Psych : Complaining of suicidal ideation, no homicidal ideation, admits to IV drug use, crack cocaine and alcohol Heme/Lymph: No Bruising, No Bleeding,No Lymphadenopathy Endocrine : No Polyuria, No Polydipsia, No Temperature Intolerance PMFSH Past Medical History Medical History Abscess of left upper extremity ADHD Anxiety Asthma Borderline personality disorder Cocaine substance abuse Depression HTN (hypertension) IBS (irritable bowel syndrome) MDD (major depressive disorder), recurrent episode, severe Opiate misuse Opioid use disorder, severe, dependence Perianal cyst Polysubstance abuse PTSD (post-traumatic stress disorder) PTSD (post-traumatic stress disorder) Tibial torsion, bilateral Social History Social History Household Members: None Housing: Homeless Housing Other:: [employer] [facility] Do you presently have visiting nurse or other home services: No Unable to assess alcohol history related to: Refusing to respond Alcohol intake: never Patient Tobacco Use Status: Current everyday Tobacco user Tobacco use type: Cigarette Cigarette Packs Per Day: 1 Cigarettes Per Day: 20.0 Years Smoked: 15 e-Cigarette/Vaping Use: Never Used Second Hand Smoke Exposure: No Substance Use Type: Crack/Cocaine and Heroin Advance Directives: No Advance Directives Information Provided: No service: No Current occupational status: unemployed Sexual orientation: Transgender Physical Exam Vital Signs: Vital Signs: Last Vital Signs Temp 98.3 F 09/29/22 00:49 Pulse 95 09/29/22 00:49 Resp 17 09/29/22 00:49 BP 136/84 09/29/22 00:49 Pulse Ox 98 09/29/22 00:49 O2 Del Method Room Air 09/29/22 00:49 BMI result Body Mass Index 28.9 Const: Other: Appearance: Alert. Oriented X3. No acute distress. Eyes: Pupils equal, round and reactive to light. ENT: Pharynx normal. Neck: Normal inspection. Neck supple. No lymph nodes noted. No crepitus CVS: Normal heart rate and rhythm. Pulses normal. Normal S1 and S2 Respiratory: No respiratory distress. Breath sounds normal. No Wheezing. No rales Abdomen: Soft and nontender. No rigidity. No distention. Skin: Skin warm and dry. Normal skin color. Normal skin turgor. Extremities: No lower extremity edema. No Lacerations. No Rash Neuro: Oriented X 3. No motor deficit. No sensory deficit. Moving all extremities. No slurred speech. CN 2 through 12 grossly intact Psych: calm, cooperative, pressured speech Course Course Course Narrative: -all of patient's labs are pending -care team consult pending -physician observation started at 01:38 -sign-out given to Dr. Taveras Medical Decision Making Differential Diagnosis Differential Diagnoses: The differential diagnosis associated with the presentation includes (Suicidal ideation, anxiety, depression, substance abuse, alcohol abuse) Admission/Observation Consideration of admission/observation: Escalation of care including admission/observation considered (Patient will be under observation until seen by the care team.) Lab Data MDM Lab Attestation statement: I reviewed the patient's lab results. Labs: Lab Results 09/29/22 Range/Units 01:20 Urine Color Yellow Urine Appearance Clear Urine pH 5.5 (5.0-9.0) Ur Specific [place] >= 1.030 H (1.005-1.025) Urine Protein Trace (Neg-Trace) mg/dL Urine Glucose (UA) Negative (Negative) mg/dL Urine Ketones Trace (Negative) mg/dL Urine Blood Negative (Negative) Urine Nitrite Negative (Negative) Ur Leukocyte Esterase Negative (Negative) Discharge Plan Discharge Clinical Impression: Suicide ideation Patient Disposition: Still a Patient Prescriptions: No Action No Known Home Meds
[2022-09-29 01:43] LABS: Amphetamine Screen Urine Not Detected (Not Detect); Barbiturates, Urine Not Detected (Not Detect); Benzodiazepines Screen Urine Not Detected (Not Detect); Cannabinoid Screen Urine POSITIVE (Not Detect); Cocaine Screen Urine POSITIVE (Not Detect); Fentanyl, urine POSITIVE (Not Detect); Opiate Screen Urine POSITIVE (Not Detect); Phencyclidine Screen Urine Not Detected (Not Detect)
--- NOTE | 2022-09-29 06:38 | PC.NURSE ---
Patient slept through the night, no distress observed/reported, care consult ordered/pending care team evaluation, blood work pending, behavior non concerning, patient is currently of his medication, VSS, will continue to monitor.
[2022-09-29 09:59] LABS: Hematocrit 35.9 % (42.0-52.0); Hemoglobin 11.5 g/dl (14.0-18.0); Mean Corpuscular Hemoglobin 27.2 pg (27.0-33.0); Mean Corpuscular Volume 84.9 fL (80.0-98.0); Mean Platelet Volume 8.8 fL (9.4-12.4); Platelet Count 310 X10*3/uL (160-400); Red Blood Count 4.23 X10*6/uL (4.60-5.80); Red Cell Distribution Width 13.8 % (11.0-16.0); White Blood Count 9.7 X10*3/uL (4.8-10.8)
[2022-09-29 10:15] VITALS: BP 120/70; PULSE 71; RESP 15; TEMP 36.7; O2SAT 100
[2022-09-29] MEDS: LORazepam 1 MG TABLET 2 MG PO ×2 (10:20→20:32)
[2022-09-29 10:25] LABS: Alanine Aminotransferase 15 U/L (0-40); Albumin Level 3.3 g/dL (3.5-5.0); Alkaline Phosphatase 70 U/L (39-117); Anion Gap 9 (12-20); Aspartate Amino Transferase 23 U/L (5-37); Bilirubin Total 0.3 mg/dL (0.0-1.0); Blood Urea Nitrogen 22 mg/dL (9-16); Carbon Dioxide 29 mmol/L (22-29); Chloride 105 mmol/L (96-108); Creatinine Clr Calc Pharmacy 183.6; Estimated Glomerular Filt Rate > 60; Ethanol < 10 mg/dL; Glucose Random 96 mg/dL (60-115); Potassium 4.3 mmol/L (3.3-5.1); Sodium 139 mmol/L (135-145); Total Protein 6.3 g/dL (6.5-8.0)
[2022-09-29] MEDS: Buprenorphine/Naloxone 8/2 mg FILM 1 FILM SUBLINGUAL (16:03)
--- NOTE | 2022-09-29 20:21 | MHC.RECOVSUP ---
Met with pt in [facility] after Care Team to inform pt that there are no beds tonight but that we can send her to [facility] tomorrow as a walk in. provider aware.
[2022-09-29 21:15] LABS: COVID-19 Test Negative (Negative); IDNOW Serial# 6674DD1D
--- NOTE | 2022-09-30 05:44 | PC.NURSE ---
Patient slept through the night, no distress observed/reported except GI upset Ativan 2 mg PO administered at 2031 with + effect, behavior non concerning, disposition per care team is detox bed search, recovery team is coordinating bed search possible bed at [facility] in [place], patient is currently not on any home medication, VSS, will continue to monitor.
[2022-09-30 06:44] VITALS: BP 143/97; PULSE 79; RESP 16; TEMP 36.1
[2022-09-30 07:51] VITALS: PULSE 72
[2022-09-30 08:06] VITALS: BP 147/94; PULSE 72; RESP 18; TEMP 37.6; O2SAT 99
[2022-09-30] MEDS: Buprenorphine/Naloxone 8/2 mg FILM 1 FILM SUBLINGUAL (08:33)
--- NOTE | 2022-09-30 09:01 | MHC.RECOVRN ---
Pt dc to [facility] to present as walk in. Transported via [employer].
== END 2022-09-30 08:49 | disposition home or self-care (01) ==
PROVIDERS: Emergency Medicine; Emergency Provider Emergency Medicine Emergency Medical Services
DX: R45.851 Suicidal ideations (principal); F11.23 Opioid dependence with withdrawal; F11.20 Opioid dependence, uncomplicated; F31.81 Bipolar II disorder; F41.9 Anxiety disorder, unspecified; F43.10 Post-traumatic stress disorder, unspecified; F60.3 Borderline personality disorder; F64.0 Transsexualism; F12.20 Cannabis dependence, uncomplicated; F17.210 Nicotine dependence, cigarettes, uncomplicated
CPT/HCPCS: 36415; 80053; 80307; 81003; 85027; 87635; 99285; S9485

== ENCOUNTER 2023-05-22 10:51 | Emergency (ER) | payer OTHER, SELFPAY ==
[2023-05-22 11:03] VITALS: BP 147/57; PULSE 60; RESP 16; TEMP 36.7; O2SAT 97; BMI 35.4
--- NOTE | 2023-05-22 11:06 | ED.GENADULT ---
HPI - General Adult General Chief complaint: General Medical Stated complaint: Methadone dose Time Seen by Provider: 05/22/23 11:12 Source: patient Mode of arrival: ambulatory Limitations: no limitations History of Present Illness HPI narrative: Patient is a 32-year-old assigned male at with history of PTSD, MDD, Bipolar disorder, cocaine use disorder, opioid use disorder currently on methadone, cannabis use disorder, borderline personality disorder, psychoactive substance-induced mood disorder presenting to the emergency department requesting daily methadone dose. woke up late and does not have time to take the bus to the clinic before it closes. [facility] last dose was 180mg yesterday at [facility]. Denies any other complaints. complaint: methadone dependence Onset (ago): hour(s) Associated symptoms: denies other symptoms Treatments prior to arrival: none Related Data Home Medications Medication Instructions Recorded Confirmed No Known Home Meds 09/29/22 09/29/22 Allergies Allergy/AdvReac Type Severity Reaction Status Date / Time aripiprazole [From ABILIFY] Allergy Unknown UNKNOWN Verified 08/22/22 14:59 Review of Systems Review of Systems: As per HPI. Yes all other systems are reviewed and are negative Constitutional: Constitutional: Reports as per HPI [facility] Past Medical History Medical History Abscess of left upper extremity ADHD Anxiety Asthma Borderline personality disorder Cocaine substance abuse Depression HTN (hypertension) IBS (irritable bowel syndrome) MDD (major depressive disorder), recurrent episode, severe Opiate misuse Opioid use disorder, severe, dependence Perianal cyst Polysubstance abuse PTSD (post-traumatic stress disorder) PTSD (post-traumatic stress disorder) Tibial torsion, bilateral Social History Social History Household Members: None Housing: Homeless Housing Other:: [employer] [facility] Do you presently have visiting nurse or other home services: No Unable to assess alcohol history related to: Refusing to respond Alcohol intake: never Patient Tobacco Use Status: Current everyday Tobacco user Tobacco use type: Cigarette Cigarette Packs Per Day: 1 Cigarettes Per Day: 20.0 Years Smoked: 15 e-Cigarette/Vaping Use: Never Used Second Hand Smoke Exposure: No Substance Use Type: Crack/Cocaine and Heroin Advance Directives: No Advance Directives Information Provided: No service: No Current occupational status: unemployed Sexual orientation: Transgender Physical Exam ED Vital Signs: Vital Signs - 24 hr 05/22/23 11:03 05/22/23 12:19 Temperature 98.0 F 98.0 F Pulse Rate 60 60 Respiratory Rate 16 16 Blood Pressure 147/57 H 147/57 H Pulse Oximetry 97 97 Oxygen Delivery Method Room Air Room Air BMI result Body Mass Index 35.4 Vital signs have been reviewed and appear to be correct. Blood pressure normal. Heart rate normal. Respiratory rate normal. Temperature normal. Oxygen saturation normal. Const General: cooperative, healthy appearing and no acute distress Orientation/consciousness: oriented to person, oriented to place, oriented to time and patient oriented x3 Limitations: no limitations HENMT Head: Yes normocephalic and Yes atraumatic Ears: external ears normal General nose exam: Normal external nose present Face and sinus: Yes face symmetric Mouth: oropharynx normal and moist mucous membranes Throat: Yes uvula midline Eyes Pupils: Equal, round and reactive pupils present Neck Neck: Yes normal visual inspection and Yes supple Resp Effort & Inspection: normal respiratory effort and able to speak in complete sentences Auscultation: clear to auscultation bilaterally Cardio Rate: regular rate Rhythm: regular rhythm Heart sounds: S1 normal heart sound present and S2 normal heart sound present GI Palpation (GI): Soft to palpation and nontender Auscultation: normoactive bowel sounds General: Yes no CVA tenderness Back/Spine/Pelvis Back: no CVA tenderness Skin General skin exam: elasticity normal and turgor normal Neuro General: oriented to person, oriented to place, oriented to time, patient oriented x3, moves all extremities, no focal motor deficits and CN's II-XI intact bilaterally Cranial nerves: Yes Equal, round and reactive pupils present Cognition (Neuro): normal cognition Extrem General: Yes full ROM, Yes no pedal edema and Yes no calf tenderness Psych Mental Status: mental status grossly normal Affect: normal affect Thought process: Normal thought process present Medications Administered Discontinued Medications Generic Name Dose Route Start Last Admin Trade Name Freq PRN Reason Stop Dose Admin Methadone HCl 180 mg 05/22/23 11:19 05/22/23 12:14 Methadone Hcl 20 Mg/2 Ml Oral.Conc PO 05/22/23 11:20 180 mg ONCE ONE Administration Medical Decision Making Medical Decision Making MDM Narrative: Patient is a 32-year-old assigned male at with history of PTSD, MDD, Bipolar disorder, cocaine use disorder, opioid use disorder currently on methadone, cannabis use disorder, borderline personality disorder, psychoactive substance-induced mood disorder presenting to the emergency department requesting daily methadone dose. On exam patient is awake, A+Ox3, VS WNL, afebrile, normal neurological exam without focal deficits, physical exam findings as above. Given reported symptoms and physical exam findings, initial differential includes methadone dependence, opiate withdrawal. Dose verified with Taylor at [facility] in [place], patient's last dose was 180mg at 10:51am yesterday, 05/20. Patient given dose in the ED. Return precautions discussed. Patient verbalized understanding of and agreement with plan. Differential Diagnosis Differential Diagnoses: The differential diagnosis associated with the presentation includes As per [facility] External Record Review External record reviewed: Inpatient record, Office record, Outpatient record and Other (verification of amount and last dose of methadone with [facility] clinic on [facility] in [place], spoke with Taylor) Prescription Management I considered prescription management with: Other Discharge Plan Discharge Clinical Impression: Methadone dependence Patient Disposition: Home, Self-Care Additional Instructions: You presented to the emergency department today for your daily methadone dose. You were medicated with your regular dose after verification with your clinic. Please follow up with your clinic tomorrow. Return with any concerning symptoms. Prescriptions: No Action No Known Home Meds Interventions: ED Discharge Assessment Last Done: 05/22/23 12:19 Discharge Date/Time: 05/22/23 12:23
--- NOTE | 2023-05-22 11:27 | HE.PHANOTE ---
Methadone Verification Pharmacy has received the methadone verification from Lyn. Patient last received methadone 180 mg from [facility] on 05/20 @ 1059, reported by Taylor.
[2023-05-22] MEDS: methADONE HCl 20 MG/2 ML ORAL.CONC 180 MG PO (12:14)
[2023-05-22 12:19] VITALS: BP 147/57; PULSE 60; RESP 16; TEMP 36.7; O2SAT 97
== END 2023-05-22 12:23 | disposition home or self-care (01) ==
LOC: HO.ED 12:21
PROVIDERS: Emergency Provider Emergency Medicine
DX: F11.20 Opioid dependence, uncomplicated (principal); F43.10 Post-traumatic stress disorder, unspecified; F31.9 Bipolar disorder, unspecified; F14.90 Cocaine use, unspecified, uncomplicated; F12.90 Cannabis use, unspecified, uncomplicated; F60.3 Borderline personality disorder; I10 Essential (primary) hypertension; J45.909 Unspecified asthma, uncomplicated
CPT/HCPCS: 99282; 99283

== ENCOUNTER 2023-06-03 01:21 | Inpatient (IN) | payer OTHER, SELFPAY ==
--- NOTE | 2023-06-03 | ECG_ITS ---
Test Reason : CHECK QTC PROLONGATION Blood Pressure : / mmHG Vent. Rate : 051 BPM Atrial Rate : 051 BPM P-R Int : 160 ms QRS Dur : 094 ms QT Int : 480 ms P-R-T Axes : 009 046 030 degrees QTc Int : 442 ms Sinus bradycardia Otherwise normal ECG When compared with ECG of 11-AUG-2022 02:56, Vent. rate has decreased BY 39 BPM Referred By: Paradise Denise Electronically Signed By:Tim Bell
[2023-06-03 01:29] VITALS: BP 148/84; PULSE 81; RESP 16; TEMP 36.7; O2SAT 99; BMI 35.5
--- NOTE | 2023-06-03 01:54 | ED.PSYCH ---
HPI - Psych General Chief Complaint: Psychiatric Symptoms Stated Complaint: crisis? Time Seen by Provider: 06/03/23 01:51 Source: patient Mode of arrival: ambulatory Limitations: no limitations History of Present Illness HPI Narrative: Patient comes to the emergency room complaining of suicidal ideation. Patient states he has had ups and Downs over last 2 months. Admits to feeling depressed. States that he is doing well on methadone. Requesting care team consult Related Data Home Medications Medication Instructions Recorded Confirmed No Known Home Meds 09/29/22 09/29/22 Allergies Allergy/AdvReac Type Severity Reaction Status Date / Time aripiprazole [From ABILIFY] Allergy Unknown UNKNOWN Verified 06/03/23 01:28 Review of Systems Review of Systems: Constitutional : No Weight loss, No Fever, No Chills, No Night Sweats, No Fatigue, No Malaise ENT/Mouth : No Hearing loss, No Ear Pain, No Nasal Congestion, No Sinus Pain, No Hoarseness, No sore throat, No Rhinorrhea, No Swallowing Difficulty Eyes: No Eye Pain, No Swelling, No Redness, No Foreign Body, No Discharge, No Vision Changes Cardiovascular : No Chest Pain, No SOB, No Dyspnea on Exertion, No Orthopnea, No Edema, No Palpitations Respiratory : No Cough, No Sputum, No Wheezing, No Smoke Exposure, No Dyspnea Gastrointestinal : No Nausea, No Vomiting, No Diarrhea, No Constipation, No abdominal Pain, No Hematochezia, No Melena Genitourinary : no irregular bleeding, No Dysuria, No Urinary Frequency, No Hematuria, No Urinary Incontinence, No Urgency, No Flank Pain, No Urinary Flow Changes, No Hesitancy Musculoskeletal : No joint pain, No Myalgias, No Joint Swelling Skin : No Skin Lesions, No rash Neuro : No Weakness, No Numbness, No Paresthesias, No Loss of Consciousness, No Dizziness, No Headache Psych : Complaining of anxiety, depression, doing well on methadone, suicidal ideation no homicidal ideation Heme/Lymph: No Bruising, No Bleeding,No Lymphadenopathy Endocrine : No Polyuria, No Polydipsia, No Temperature Intolerance PMFSH Past Medical History Medical History MDD (major depressive disorder), recurrent episode, severe Polysubstance abuse Perianal cyst Opioid use disorder, severe, dependence Opiate misuse Cocaine substance abuse Borderline personality disorder PTSD (post-traumatic stress disorder) HTN (hypertension) Tibial torsion, bilateral Asthma IBS (irritable bowel syndrome) Abscess of left upper extremity ADHD Depression Anxiety PTSD (post-traumatic stress disorder) Social History Social History Household Members: None Housing: Homeless Housing Other:: [place] [facility] Do you presently have visiting nurse or other home services: No Unable to assess alcohol history related to: Refusing to respond Alcohol intake: never Patient Tobacco Use Status: Current everyday Tobacco user Tobacco use type: Cigarette Cigarette Packs Per Day: 1 Cigarettes Per Day: 20.0 Years Smoked: 15 Smoked in Last 30 Days: Yes e-Cigarette/Vaping Use: Never Used Second Hand Smoke Exposure: No Use of substances other than those prescribed or required for medical reasons: Yes Substance Use Type: Crack/Cocaine and Opiates Substance Use Frequency: Daily Advance Directives: No Advance Directives Information Provided: No service: No Current occupational status: unemployed Sexual orientation: Transgender Physical Exam Vital Signs: Vital Signs: Last Vital Signs Temp 97 F 06/03/23 06:00 Pulse 62 06/03/23 06:00 Resp 16 06/03/23 06:00 BP 133/79 06/03/23 06:00 Pulse Ox 98 06/03/23 06:00 O2 Del Method Room Air 06/03/23 06:00 BMI result Body Mass Index 35.5 Const: Other: Appearance: Alert. Oriented X3. No acute distress. Eyes: Pupils equal, round and reactive to light. ENT: Pharynx normal. Neck: Normal inspection. Neck supple. No lymph nodes noted. No crepitus CVS: Normal heart rate and rhythm. Pulses normal. Normal S1 and S2 Respiratory: No respiratory distress. Breath sounds normal. No Wheezing. No rales Abdomen: Soft and nontender. No rigidity. No distention. Skin: Skin warm and dry. Normal skin color. Normal skin turgor. Extremities: No lower extremity edema. No Lacerations. No Rash, feet with multiple blisters Neuro: Oriented X 3. No motor deficit. No sensory deficit. Moving all extremities. No slurred speech. CN 2 through 12 grossly intact Psych: Anxious, hyperverbal Course Course Course Narrative: -all of patient's labs are pending -care team consult pending -physician observation started at 01:57 -patient is here voluntarily Medical Decision Making Differential Diagnosis Differential Diagnoses: The differential diagnosis associated with the presentation includes (Major depression, PTSD, ADHD, possible substance abuse) Admission/Observation Consideration of admission/observation: Escalation of care including admission/observation considered (Care team consult pending to determine patient's disposition) Lab Data 06/03/23 02:46 06/03/23 02:46 Labs: Lab Results 06/03/23 06/03/23 Range/Units 02:46 03:51 WBC 9.0 (4.8-10.8) X10*3/uL RBC 4.30 L (4.60-5.80) X10*6/uL Hgb 12.1 L (14.0-18.0) g/dl Hct 36.3 L (42.0-52.0) % MCV 84.4 (80.0-98.0) fL MCH 28.1 (27.0-33.0) pg MCHC 33.3 (31.0-36.0) g/dl RDW 14.6 (11.0-16.0) % Plt Count 217 D (160-400) X10*3/uL MPV 9.6 (9.4-12.4) fL Immature Gran % (Auto) 0.2 (0.0-0.4) % Neut % (Auto) 45.3 (45-73) % Lymph % (Auto) 46.1 H (20-40) % Crane % (Auto) 6.8 (2-11) % Eos % (Auto) 1.2 (0-4) % Baso % (Auto) 0.4 (0-2) % Lymph # (Auto) 4.2 (1.2-4.9) X10*3/uL Crane # (Auto) 0.6 (0.1-1.2) X10*3/uL Eos # (Auto) 0.1 (0.0-0.4) X10*3/uL Baso # (Auto) 0.0 (0.0-0.2) X10*3/uL Abs Immat Gran (auto) 0.02 (0.00-0.03) X10*3/uL Absolute Neuts (auto) 4.1 (2.0-8.3) x10*3/uL Absolute Nucleated RBC 0.000 (0.0-0.012) X10*3/uL Nucleated RBC % (auto) 0.0 (0.0-0.2) /100WBC Sodium 139 (135-145) mmol/L Potassium 3.7 (3.3-5.1) mmol/L Chloride 104 (96-108) mmol/L Carbon Dioxide 25 (22-29) mmol/L Anion Gap 14 (12-20) BUN 20 H (9-16) mg/dL Creatinine 0.90 (0.5-1.4) mg/dL Estim Creat Clear Calc 140.6 Estimated GFR > 60 Random Glucose 107 (60-115) mg/dL Calcium 8.8 (8.4-10.2) mg/dL Total Bilirubin 0.1 (0.0-1.0) mg/dL Direct Bilirubin < 0.2 (0.0-0.5) mg/dL AST 27 (5-37) U/L ALT 17 (0-40) U/L Alkaline Phosphatase 59 (39-117) U/L Total Protein 6.9 (6.5-8.0) g/dL Albumin 3.8 (3.5-5.0) g/dL Urine Color Yellow Urine Appearance Clear Urine pH 6.0 (5.0-9.0) Ur Specific [place] 1.025 (1.005-1.025) Urine Protein Negative (Neg-Trace) mg/dL Urine Glucose (UA) Negative (Negative) mg/dL Urine Ketones Negative (Negative) mg/dL Urine Blood Negative (Negative) Urine Nitrite Negative (Negative) Ur Leukocyte Esterase Negative (Negative) Urine Opiates Screen POSITIVE H (Not Detect) Urine Fentanyl Screen POSITIVE H (Not Detect) Ur Barbiturates Screen Not Detected (Not Detect) Ur Phencyclidine Scrn Not Detected (Not Detect) Ur Amphetamines Screen Not Detected (Not Detect) U Benzodiazepines Scrn Not Detected (Not Detect) Urine Cocaine Screen POSITIVE H (Not Detect) U Marijuana (THC) Screen POSITIVE H (Not Detect) Ethyl Alcohol < 10 mg/dL Discharge Plan Discharge Clinical Impression: Hyperverbal speech, Suicidal ideation Patient Disposition: Still a Patient Prescriptions: No Action No Known Home Meds Interventions: [place]-Suicide Risk Severity Scale Last Done: 06/03/23 05:59
[2023-06-03 02:50] LABS: Basophils Percent Auto 0.4 % (0-2); Eosinophils Absolute Auto 0.1 X10*3/uL (0.0-0.4); Eosinophils Percent Auto 1.2 % (0-4); Hematocrit 36.3 % (42.0-52.0); Hemoglobin 12.1 g/dl (14.0-18.0); Imm Gran Abs Auto 0.02 X10*3/uL (0.00-0.03); Imm Gran Pct Auto 0.2 % (0.0-0.4); Lymphocytes Absolute Auto 4.2 X10*3/uL (1.2-4.9); Lymphocytes Percent Auto 46.1 % (20-40); MANUAL DIFF FLAG NO; Mean Corpuscular HGB Conc 33.3 g/dl (31.0-36.0); Mean Corpuscular Hemoglobin 28.1 pg (27.0-33.0); Mean Corpuscular Volume 84.4 fL (80.0-98.0); Mean Platelet Volume 9.6 fL (9.4-12.4); Monocytes Absolute Auto 0.6 X10*3/uL (0.1-1.2); Monocytes Percent Auto 6.8 % (2-11); Neutrophils Absolute Auto 4.1 x10*3/uL (2.0-8.3); Neutrophils Percent Auto 45.3 % (45-73); Platelet Count 217 X10*3/uL (160-400); Red Cell Distribution Width 14.6 % (11.0-16.0)
[2023-06-03 03:05] LABS: Alanine Aminotransferase 17 U/L (0-40); Albumin Level 3.8 g/dL (3.5-5.0); Alkaline Phosphatase 59 U/L (39-117); Anion Gap 14 (12-20); Aspartate Amino Transferase 27 U/L (5-37); Bilirubin Direct < 0.2 mg/dL (0.0-0.5); Bilirubin Total 0.1 mg/dL (0.0-1.0); Blood Urea Nitrogen 20 mg/dL (9-16); Calcium 8.8 mg/dL (8.4-10.2); Carbon Dioxide 25 mmol/L (22-29); Chloride 104 mmol/L (96-108); Creatinine Clr Calc Pharmacy 140.6; Estimated Glomerular Filt Rate > 60; Ethanol < 10 mg/dL; Glucose Random 107 mg/dL (60-115); Potassium 3.7 mmol/L (3.3-5.1); Sodium 139 mmol/L (135-145); Total Protein 6.9 g/dL (6.5-8.0)
--- NOTE | 2023-06-03 03:48 | PC.NURSE ---
pt transferred from [facility], main ED. Reports he has not taken any medication in the last 30 days.
[2023-06-03 03:57] LABS: Appearance Urine Clear; Color Urine Yellow; Glucose Urine UA Negative (Negative); Leukocyte Esterase Urine Negative (Negative); Nitrite Urine Negative (Negative); Specific Gravity - Urine 1.025 (1.005-1.025); Urine Blood Negative (Negative); Urine Ketones Negative (Negative); Urine Protein Negative (Neg-Trace)
[2023-06-03 04:14] LABS: Amphetamine Screen Urine Not Detected (Not Detect); Barbiturates, Urine Not Detected (Not Detect); Benzodiazepines Screen Urine Not Detected (Not Detect); Cannabinoid Screen Urine POSITIVE (Not Detect); Cocaine Screen Urine POSITIVE (Not Detect); Fentanyl, urine POSITIVE (Not Detect); Opiate Screen Urine POSITIVE (Not Detect); Phencyclidine Screen Urine Not Detected (Not Detect)
[2023-06-03 06:00] VITALS: BP 133/79; PULSE 62; RESP 16; TEMP 36.1; O2SAT 98
--- NOTE | 2023-06-03 06:13 | PC.NURSE ---
Verified methadone dose- PT last dosed at [facility]- [phone] 06/01/23 10:11am 180mg
--- NOTE | 2023-06-03 06:47 | MHC.EDTECH ---
Per security, belongings in DECON. Pt phone left at desk in Pod, RN called security about this and they will come to fruit picker to put with rest of belongings in decon.
--- NOTE | 2023-06-03 06:56 | HE.PHANOTE ---
Methadone Verification Methadone dose 180 mg. Last dose given on 06/01/23 @1011, per MIKE Goodrich RN.
[2023-06-03] MEDS: methADONE HCl 20 MG/2 ML ORAL.CONC 180 MG PO (07:16)
--- NOTE | 2023-06-03 07:36 | PC.NURSE ---
Assumed care of patient at 0700, this RN administered methadone per MAY. Pt now back to sleep, respirations even and unlabored, no apparent distress noted at this time. Pending CARE eval
--- NOTE | 2023-06-03 07:37 | PC.NURSE ---
Patient reports being off all medications for over a month
--- NOTE | 2023-06-03 11:29 | PC.NURSE ---
Patient on phone doing intake with Serafin malave RN
[2023-06-03 11:49] VITALS: BP 105/58; PULSE 56; RESP 16; TEMP 36.6; O2SAT 96
[2023-06-03 13:07] LABS: COVID-19 Test Negative (Negative); IDNOW Serial# 152EDE1D
--- NOTE | 2023-06-03 14:13 | PC.NURSE ---
plan of care for patient to go inpatient however, male bed not available at this time
--- NOTE | 2023-06-03 18:57 | PC.NURSE ---
patient appears to remain at rest at present respirations are even and unlabored patient appears in no distress
[2023-06-03 21:01] VITALS: BP 140/92; PULSE 50; RESP 16; TEMP 36.7; O2SAT 98
[2023-06-04 10:02] VITALS: BP 118/68; PULSE 53; RESP 16; TEMP 37.2; O2SAT 98
[2023-06-04] MEDS: methADONE HCl 20 MG/2 ML ORAL.CONC 180 MG PO (11:59)
[2023-06-04 16:57] VITALS: BP 104/49; PULSE 51; RESP 16; TEMP 36.7; O2SAT 97
--- NOTE | 2023-06-04 18:57 | PHA.MEDREC ---
Addendum entered by Justina Dominguez [facility] 06/04/23 19:03: Patient confirms she has not taken them in a couple weeks. Original Note: Pharmacy Consult ? Medication Reconciliation Pharmacy has completed the medication reconciliation.
--- NOTE | 2023-06-04 19:23 | PC.NURSE ---
patient appears to remain at rest, snacks intermittently, patient mildly irritable seemingly because wifi has caused televisions to be out. patient appears in no distress.
[2023-06-04] MEDS: Prazosin HCL 5 MG CAPSULE 10 MG PO (20:56)
[2023-06-04] MEDS: Spironolactone 25 MG TABLET 100 MG PO (20:56)
[2023-06-04] MEDS: Sertraline HCL 100 MG TABLET 150 MG PO (20:56)
[2023-06-04] MEDS: lamoTRIgine 100 MG TABLET 200 MG PO (20:57)
[2023-06-04] MEDS: estradioL 0.5 MG TABLET 2 MG PO (21:23)
[2023-06-05 02:41] VITALS: BP 114/57; PULSE 79; RESP 18; TEMP 37.6; O2SAT 98
[2023-06-05 07:31] VITALS: BP 107/52; PULSE 73; RESP 14; TEMP 37.3; O2SAT 96
--- NOTE | 2023-06-05 07:40 | PC.NURSE ---
PT IS A/O X 4 NO SOB/STEFANIA NOTED SPEAKS IN FULL SENTENCES. PT DENIES ANY SI/HI. PT AMB (I) GAIT STEADY. PT C/O TATIANA LOWER EXT CHRONIC PAIN 07/14. PT AWARE OF PLAN OF CARE. WILL CONTINUE TO MONITOR.
[2023-06-05] MEDS: Sertraline HCL 100 MG TABLET 150 MG PO (07:51)
[2023-06-05] MEDS: estradioL 0.5 MG TABLET 2 MG PO ×3 (07:51→20:56)
[2023-06-05] MEDS: Spironolactone 25 MG TABLET 100 MG PO ×2 (07:52→20:56)
[2023-06-05] MEDS: lamoTRIgine 100 MG TABLET 200 MG PO (07:53)
[2023-06-05] MEDS: methADONE HCl 20 MG/2 ML ORAL.CONC 180 MG PO (07:53)
[2023-06-05] MEDS: Acetaminophen 325 MG TABLET 650 MG PO ×2 (08:41→19:05)
--- NOTE | 2023-06-05 08:50 | PC.NURSE ---
PT C/O HEADACHE 09/13. PT MED X 1 WITH APAP 650MG PO. WILL CONTINUE TO MONITOR.
[2023-06-05] MEDS: hydrOXYzine HCL 50 MG TABLET PO (11:01)
--- NOTE | 2023-06-05 11:06 | PC.NURSE ---
PT C/O INCREASE ANXIETY, MED X 1 ROYA HYRDOXINE 50MG PO. WILL CONTINUE TO MONITOR.
[2023-06-05 12:12] VITALS: BP 105/57; PULSE 56; RESP 16; TEMP 36.6; O2SAT 98
[2023-06-05] MEDS: OLANZapine 5 MG TABLET PO (12:35)
--- NOTE | 2023-06-05 12:39 | PC.NURSE ---
PT C/O INCREASE ANXIETY. MED X 1 WITH ZYPREXA 5MG PO. WILL CONTINUE TO MONITOR.
[2023-06-05 14:09] VITALS: BP 103/45; PULSE 62; RESP 14; TEMP 36.2; O2SAT 99
--- NOTE | 2023-06-05 19:00 | PC.NURSE ---
patient appears at rest on the whole, just got up to void and requesting tylenol for BUCKLEY, overall patint asking appropriate questions in regard to care. patient appears in no distress.
[2023-06-05] MEDS: Prazosin HCL 5 MG CAPSULE 10 MG PO (20:57)
[2023-06-05 21:45] VITALS: BP 118/64; PULSE 58; RESP 16; TEMP 36.7; O2SAT 98
--- NOTE | 2023-06-06 07:09 | PC.NURSE ---
Assumed care of patient at 0645, patient appears to be sleeping, respirations even and unlabored, no apparent distress noted at this time. Continue plan of care for inpatient bedsearch
[2023-06-06] MEDS: methADONE HCl 20 MG/2 ML ORAL.CONC 180 MG PO (08:07)
[2023-06-06] MEDS: lamoTRIgine 100 MG TABLET 200 MG PO (08:07)
[2023-06-06] MEDS: estradioL 0.5 MG TABLET 2 MG PO ×3 (08:07→20:50)
[2023-06-06] MEDS: Sertraline HCL 100 MG TABLET 150 MG PO (08:07)
[2023-06-06] MEDS: Spironolactone 25 MG TABLET 100 MG PO ×2 (08:12→20:51)
[2023-06-06 08:42] LABS: COVID-19 Test Negative (Negative); IDNOW Serial# 152EDE1D
[2023-06-06] MEDS: Acetaminophen 325 MG TABLET 975 MG PO (09:52)
[2023-06-06 13:40] VITALS: BMI 33.4
[2023-06-06] MEDS: hydrOXYzine HCL 50 MG TABLET PO (15:39)
--- NOTE | 2023-06-06 17:44 | PC.NURSE ---
Emil ( ?Waynei? - she/her pronouns) was admitted to M3 at 1320 from [facility] Pod on CV for treatment of bipolar disorder and ptsd with SI.? Precipitant of admission include stopping prescribed meds 1 month ago with relapse on heroin, cocaine and fentanyl on 06/02/23. Pt is alert, fully oriented, pleasant and cooperative with admission process.? Mood is depressed. Affect is anxious. She denies hallucinations with no overt psychosis noted. Thought Process is linear and organized. Mahendra reports ideation without a current plan or intent to harm self or others. Mahendra agrees to contact staff if this changes on the unit.? She denies recent weight change and reports good appetite. Sleep is reportedly variable? - stays awake all night sometimes and others can?t get out of bed. Pt denies this is related to drug use.? Focus is good. She denies current physical complaint. Goal of admission is to get back on prescribed meds and recommit to sobriety. She is placed on q 15 minute Safety Checks.
[2023-06-06 19:35] VITALS: BP 107/64; PULSE 69; RESP 15; TEMP 37.2; O2SAT 97
[2023-06-06] MEDS: Prazosin HCL 5 MG CAPSULE 10 MG PO (20:51)
[2023-06-07 07:32] VITALS: BP 111/55; PULSE 57; RESP 14; TEMP 37.1; O2SAT 98
[2023-06-07] MEDS: methADONE HCl 20 MG/2 ML ORAL.CONC 180 MG PO (08:31)
[2023-06-07] MEDS: Spironolactone 25 MG TABLET 100 MG PO ×2 (08:34→20:46)
[2023-06-07] MEDS: estradioL 0.5 MG TABLET 2 MG PO ×3 (08:35→20:46)
[2023-06-07] MEDS: Sertraline HCL 100 MG TABLET 150 MG PO (08:36)
[2023-06-07] MEDS: lamoTRIgine 100 MG TABLET 200 MG PO (08:36)
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
[2023-06-07] MEDS: Acetaminophen 325 MG TABLET 650 MG PO (14:35)
[2023-06-07] MEDS: hydrOXYzine HCL 50 MG TABLET PO (14:36)
[2023-06-07 20:15] VITALS: BP 95/55; PULSE 60; RESP 16; TEMP 36.6; O2SAT 94
[2023-06-07] MEDS: Prazosin HCL 1 MG CAPSULE 2 MG PO (20:46)
[2023-06-07] MEDS: Prazosin HCL 5 MG CAPSULE 10 MG PO (20:47)
--- NOTE | 2023-06-08 08:31 | PC.NURSE ---
Pt refused labs
[2023-06-08] MEDS: methADONE HCl 20 MG/2 ML ORAL.CONC 180 MG PO (08:54)
[2023-06-08 09:00] VITALS: BP 136/86; PULSE 70; RESP 16; TEMP 36.4; O2SAT 98
[2023-06-08] MEDS: Spironolactone 25 MG TABLET 100 MG PO ×2 (09:00→20:44)
[2023-06-08] MEDS: Sertraline HCL 100 MG TABLET 150 MG PO (09:01)
[2023-06-08] MEDS: estradioL 0.5 MG TABLET 2 MG PO ×3 (09:02→20:44)
[2023-06-08] MEDS: Dextroamphetamine/Amphetamine XR 10 MG CAP.ER.24H 30 MG PO (09:03)
[2023-06-08] MEDS: lamoTRIgine 100 MG TABLET 200 MG PO (09:04)
--- NOTE | 2023-06-08 12:04 | HO.PSYCHPN ---
Subjective Subjective Date of Service: 06/08/23 Reason For Visit: SI Interim History: calm, cooperative, pleasant. slept better, no nightmares. seen with LINDA Lovett, dispo planning discussed. continue current mgmt. per staff, flat/withdrawn. poor PO intake. not attending groups. passive SI. taking meds. slept more than 8 hours. refused labs. Mental Status Exam Mental Status Exam Narrative: Appearance: wearing street clothes, adequately groomed Behavior: cooperative psychomotor: fidgety/squirmy Speech:clear, incr rate and amount. decr latency. Thought process:linear Thought content:no signs of psychosis, future oriented, hopeful Mood: improving Affect: congruent, flexible SI: none expressed HI:none expressed VH/AH:none expressed Delusions: none expressed Insight/judgment: fair x 2. Memory/cog: alert, oriented x 3. Diagnostics Vital Signs (24Hr): Vital Signs - 24 hr 06/07/23 20:15 06/08/23 09:00 Temperature 97.8 F 97.6 F Pulse Rate 60 70 Respiratory Rate 16 16 Blood Pressure 95/55 L 136/86 Pulse Oximetry 94 98 Oxygen Delivery Method Room Air Room Air BMI result Body Mass Index 33.4 Labs 06/03/23 02:46 06/03/23 02:46 Medications Medications Current Medications Acetaminophen (Acetaminophen 325 Mg Tablet) 650 mg PO Q6H PRN PRN Reason: Headache/Pain Mild Scale (1-3) Last Admin: 06/07/23 14:35 Dose: 650 mg Al Hydroxide/Mg Hydroxide (Magnesium Hydrox/Alum Hydrox 30 Ml Oral.Susp) 30 ml PO Q6H PRN PRN Reason: Heartburn/Nausea Amphetamine/Dextroamphetamine (Dextroamphetamine/Amphetamine Xr 10 Mg Cap.Er.24h) 30 mg PO DAILY [facility] Last Admin: 06/08/23 09:03 Dose: 30 mg Clonidine HCl (Clonidine Hcl 0.1 Mg Tablet) 0.1 mg PO QID PRN; Protocol PRN Reason: agitation Estradiol (Estradiol 0.5 Mg Tablet) 2 mg PO TID [facility] Last Admin: 06/08/23 09:02 Dose: 2 mg Hydroxyzine HCl (Hydroxyzine Hcl 50 Mg Tablet) 50 mg PO TID PRN PRN Reason: anxiety Last Admin: 06/07/23 14:36 Dose: 50 mg Lamotrigine (Lamotrigine 100 Mg Tablet) 200 mg PO DAILY [facility] Last Admin: 06/08/23 09:04 Dose: 200 mg Magnesium Hydroxide (Milk Of Magnesia 30 Ml Oral.Susp) 30 ml PO DAILY PRN PRN Reason: Constipation Methadone HCl (Methadone Hcl 20 Mg/2 Ml Oral.Conc) 180 mg PO DAILY [facility] Last Admin: 06/08/23 08:54 Dose: 180 mg Nicotine Polacrilex (Nicotine Polacrilex 2 Mg Gum) 4 mg BUCCAL Q2H PRN PRN Reason: Nicotine Cravings Non-Formulary Medication (Estradiol Valerate) 10 mg IM QWEEK [facility] Non-Formulary Medication (Lisdexamfetamine [Vyvanse]) 70 mg PO QAM ANGELES Prazosin HCl (Prazosin Hcl 1 Mg Capsule) 2 mg PO BEDTIME [facility]; Protocol Last Admin: 06/07/23 20:46 Dose: 2 mg Prazosin HCl (Prazosin Hcl 5 Mg Capsule) 10 mg PO BEDTIME [facility]; Protocol Last Admin: 06/07/23 20:47 Dose: 10 mg Sertraline HCl (Sertraline Hcl 100 Mg Tablet) 150 mg PO DAILY [facility] Last Admin: 06/08/23 09:01 Dose: 150 mg Spironolactone (Spironolactone 25 Mg Tablet) 100 mg PO BID [facility]; Protocol Last Admin: 06/08/23 09:00 Dose: 100 mg Trazodone HCl (Trazodone Hcl 50 Mg Tablet) 50 mg PO BEDTIME MRX1 PRN PRN Reason: Insomnia Allergies Allergies Allergy/AdvReac Type Severity Reaction Status Date / Time aripiprazole [From [facility]] Allergy Unknown UNKNOWN Verified 06/03/23 01:28 Assessment & Plan Assessment & Plan (1) Suicidal ideation: Status: Acute Code(s): R45.851 - Suicidal ideations (2) PTSD (post-traumatic stress disorder): Status: Acute Code(s): F43.10 - Post-traumatic stress disorder, unspecified (3) MDD (major depressive disorder), recurrent episode, severe: Status: Acute Code(s): F33.2 - Major depressive disorder, recurrent severe without psychotic features (4) Cocaine use disorder, moderate, dependence: Status: Acute Code(s): F14.20 - Cocaine dependence, uncomplicated (5) Opioid use disorder, moderate, dependence: Status: Acute Code(s): F11.20 - Opioid dependence, uncomplicated (6) ADHD: Status: Acute Code(s): F90.9 - Attention-deficit hyperactivity disorder, unspecified type (7) Cannabis use disorder, moderate, dependence: Status: Acute Code(s): F12.20 - Cannabis dependence, uncomplicated (8) Borderline personality disorder: Status: Acute Code(s): F60.3 - Borderline personality disorder Plan /: restart/continue outpt meds. increase prazosin to 12 mg QHS for nightmares and insomnia. attempt to obtain vyvanse and estradiol IM from local pharmacy. use adderall XR [address] of vyvanse for now. T/C substance use Tx options. refer for therapy. 06/07: slept well, no nightmares. continue current mgmt. planning to D/C to respite after stabilization. Reason for continued inpatient stay Substantial Risk for: harm to self, inability to function and rapid decompensation Time Spent With Patient Time: Total time managing care of this patient today __25__ minutes.
[2023-06-08 20:12] VITALS: BP 136/75; PULSE 77; RESP 18; TEMP 36.4; O2SAT 96
[2023-06-08] MEDS: cloNIDine HCL 0.1 MG TABLET PO (20:43)
[2023-06-08] MEDS: Prazosin HCL 5 MG CAPSULE 10 MG PO (20:44)
[2023-06-08] MEDS: Prazosin HCL 1 MG CAPSULE 2 MG PO (20:44)
[2023-06-08] MEDS: hydrOXYzine HCL 50 MG TABLET PO (22:52)
[2023-06-09 06:00] VITALS: BP 108/55; PULSE 64; RESP 16; TEMP 36.4; O2SAT 95
[2023-06-09] MEDS: Sertraline HCL 100 MG TABLET 150 MG PO (09:43)
[2023-06-09] MEDS: estradioL 0.5 MG TABLET 2 MG PO ×3 (09:45→20:22)
[2023-06-09] MEDS: lamoTRIgine 100 MG TABLET 200 MG PO (09:46)
[2023-06-09] MEDS: Spironolactone 25 MG TABLET 100 MG PO ×2 (09:46→20:22)
[2023-06-09] MEDS: Dextroamphetamine/Amphetamine XR 10 MG CAP.ER.24H 30 MG PO (09:47)
[2023-06-09] MEDS: methADONE HCl 20 MG/2 ML ORAL.CONC 180 MG PO (09:50)
--- NOTE | 2023-06-09 15:02 | P.PNPSI_ITS ---
Subjective Subjective Date of Service: 06/09/23 Reason For Visit: SI Interim History: calm, cooperative. DFA but once asleep slept well. declines change in regimen. attempting to engage in staff splitting re getting meds from [facility]. per staff, increased dep/anx. ate dinner. not attending groups. taking meds. passive SI. decreased SI yesterday. slept after 0130. Mental Status Exam Mental Status Exam Narrative: Appearance: wearing street clothes, adequately groomed Behavior: cooperative psychomotor: fidgety/squirmy Speech:clear, incr rate and amount. decr latency. Thought process:linear Thought content:no signs of psychosis, future oriented, hopeful Mood: improving Affect: congruent, flexible SI: none expressed HI:none expressed VH/AH:none expressed Delusions: none expressed Insight/judgment: fair x 2. Memory/cog: alert, oriented x 3. Diagnostics Vital Signs (24Hr): Vital Signs - 24 hr 06/08/23 20:12 06/09/23 06:00 Temperature 97.6 F 97.5 F Pulse Rate 77 64 Respiratory Rate 18 16 Blood Pressure 136/75 108/55 L Pulse Oximetry 96 95 Oxygen Delivery Method Room Air BMI result Body Mass Index 33.4 Labs 06/03/23 02:46 06/03/23 02:46 Medications Medications Current Medications Acetaminophen (Acetaminophen 325 Mg Tablet) 650 mg PO Q6H PRN PRN Reason: Headache/Pain Mild Scale (1-3) Last Admin: 06/07/23 14:35 Dose: 650 mg Al Hydroxide/Mg Hydroxide (Magnesium Hydrox/Alum Hydrox 30 Ml Oral.Susp) 30 ml PO Q6H PRN PRN Reason: Heartburn/Nausea Amphetamine/Dextroamphetamine (Dextroamphetamine/Amphetamine Xr 10 Mg Cap.Er.24h) 30 mg PO DAILY [facility] Last Admin: 06/09/23 09:47 Dose: 30 mg Clonidine HCl (Clonidine Hcl 0.1 Mg Tablet) 0.1 mg PO QID PRN; Protocol PRN Reason: agitation Last Admin: 06/08/23 20:43 Dose: 0.1 mg Estradiol (Estradiol 0.5 Mg Tablet) 2 mg PO TID [facility] Last Admin: 06/09/23 14:36 Dose: 2 mg Hydroxyzine HCl (Hydroxyzine Hcl 50 Mg Tablet) 50 mg PO TID PRN PRN Reason: anxiety Last Admin: 06/08/23 22:52 Dose: 50 mg Lamotrigine (Lamotrigine 100 Mg Tablet) 200 mg PO DAILY [facility] Last Admin: 06/09/23 09:46 Dose: 200 mg Magnesium Hydroxide (Milk Of Magnesia 30 Ml Oral.Susp) 30 ml PO DAILY PRN PRN Reason: Constipation Methadone HCl (Methadone Hcl 20 Mg/2 Ml Oral.Conc) 180 mg PO DAILY [facility] Last Admin: 06/09/23 09:50 Dose: 180 mg Nicotine Polacrilex (Nicotine Polacrilex 2 Mg Gum) 4 mg BUCCAL Q2H PRN PRN Reason: Nicotine Cravings Non-Formulary Medication (Estradiol Valerate) 10 mg IM QWEEK [facility] Non-Formulary Medication (Lisdexamfetamine [Vyvanse]) 70 mg PO QAM [facility] Prazosin HCl (Prazosin Hcl 1 Mg Capsule) 2 mg PO BEDTIME [facility]; Protocol Last Admin: 06/08/23 20:44 Dose: 2 mg Prazosin HCl (Prazosin Hcl 5 Mg Capsule) 10 mg PO BEDTIME [facility]; Protocol Last Admin: 06/08/23 20:44 Dose: 10 mg Sertraline HCl (Sertraline Hcl 100 Mg Tablet) 150 mg PO DAILY [facility] Last Admin: 06/09/23 09:43 Dose: 150 mg Spironolactone (Spironolactone 25 Mg Tablet) 100 mg PO BID [facility]; Protocol Last Admin: 06/09/23 09:46 Dose: 100 mg Trazodone HCl (Trazodone Hcl 50 Mg Tablet) 50 mg PO BEDTIME MRX1 PRN PRN Reason: Insomnia Allergies Allergies Allergy/AdvReac Type Severity Reaction Status Date / Time aripiprazole [From [facility]] Allergy Unknown UNKNOWN Verified 06/03/23 01:28 Assessment & Plan Assessment & Plan (1) Suicidal ideation: Status: Acute Code(s): R45.851 - Suicidal ideations (2) PTSD (post-traumatic stress disorder): Status: Acute Code(s): F43.10 - Post-traumatic stress disorder, unspecified (3) MDD (major depressive disorder), recurrent episode, severe: Status: Acute Code(s): F33.2 - Major depressive disorder, recurrent severe without psychotic features (4) Cocaine use disorder, moderate, dependence: Status: Acute Code(s): F14.20 - Cocaine dependence, uncomplicated (5) Opioid use disorder, moderate, dependence: Status: Acute Code(s): F11.20 - Opioid dependence, uncomplicated (6) ADHD: Status: Acute Code(s): F90.9 - Attention-deficit hyperactivity disorder, unspecified type (7) Cannabis use disorder, moderate, dependence: Status: Acute Code(s): F12.20 - Cannabis dependence, uncomplicated (8) Borderline personality disorder: Status: Acute Code(s): F60.3 - Borderline personality disorder Plan 4/2: restart/continue outpt meds. increase prazosin to 12 mg QHS for nightmares and insomnia. attempt to obtain vyvanse and estradiol IM from local pharmacy. use adderall XR [address] of vyvanse for now. T/C substance use Tx options. refer for therapy. 4/3: slept well, no nightmares. continue current mgmt. planning to D/C to respite after stabilization. 4/4: slept well after falling asleep. engaging in staff splitting. continue current mgmt. discussed meds with [facility], they are working on them presently. Reason for continued inpatient stay Substantial Risk for: harm to self, inability to function and rapid decompensation Time Spent With Patient Time: Total time managing care of this patient today __35__ minutes.
[2023-06-09 18:00] VITALS: BP 146/93; PULSE 63; RESP 18; TEMP 36.4; O2SAT 99
[2023-06-09] MEDS: cloNIDine HCL 0.1 MG TABLET PO (19:14)
[2023-06-09] MEDS: hydrOXYzine HCL 50 MG TABLET PO (20:22)
[2023-06-09] MEDS: Prazosin HCL 1 MG CAPSULE 2 MG PO (20:22)
[2023-06-09] MEDS: Prazosin HCL 5 MG CAPSULE 10 MG PO (20:24)
[2023-06-10 10:06] VITALS: BP 111/56; PULSE 66; RESP 18; TEMP 36.5; O2SAT 99
[2023-06-10] MEDS: lamoTRIgine 100 MG TABLET 200 MG PO (10:07)
[2023-06-10] MEDS: Dextroamphetamine/Amphetamine XR 10 MG CAP.ER.24H 30 MG PO (10:07)
[2023-06-10] MEDS: estradioL 0.5 MG TABLET 2 MG PO ×3 (10:08→20:50)
[2023-06-10] MEDS: Spironolactone 25 MG TABLET 100 MG PO ×2 (10:08→20:49)
[2023-06-10] MEDS: Sertraline HCL 100 MG TABLET 150 MG PO (10:09)
[2023-06-10] MEDS: methADONE HCl 20 MG/2 ML ORAL.CONC 180 MG PO (10:11)
--- NOTE | 2023-06-10 12:40 | HO.PSYCHPN ---
Subjective Subjective Date of Service: 06/10/23 Reason For Visit: SI Interim History: slept well, no nightmares. feeling better. excited about seeing her son after discharge. would like to go tuesday or tuesday. reports she has made PCP appointment for herself and may have a therapist [facility] [place]. per staff, no dep/anx. irritable, withdrawn. guarded. slept about 8 hours. Mental Status Exam Mental Status Exam Narrative: Appearance: wearing street clothes, adequately groomed Behavior: cooperative psychomotor: fidgety Speech: clear, nml rate and amount. decr latency. Thought process:linear Thought content:no signs of psychosis, future oriented, hopeful Mood: improving Affect: congruent, flexible SI: none expressed HI: none expressed VH/AH: none expressed Delusions: none expressed Insight/judgment: fair x 2. Memory/cog: alert, oriented x 3. Diagnostics Vital Signs (24Hr): Vital Signs - 24 hr 06/09/23 18:00 06/10/23 10:06 Temperature 97.6 F 97.7 F Pulse Rate 63 66 Respiratory Rate 18 18 Blood Pressure 146/93 H 111/56 L Pulse Oximetry 99 99 Oxygen Delivery Method Room Air Room Air BMI result Body Mass Index 33.4 Labs 06/03/23 02:46 06/03/23 02:46 Medications Medications Current Medications Acetaminophen (Acetaminophen 325 Mg Tablet) 650 mg PO Q6H PRN PRN Reason: Headache/Pain Mild Scale (1-3) Last Admin: 06/07/23 14:35 Dose: 650 mg Al Hydroxide/Mg Hydroxide (Magnesium Hydrox/Alum Hydrox 30 Ml Oral.Susp) 30 ml PO Q6H PRN PRN Reason: Heartburn/Nausea Amphetamine/Dextroamphetamine (Dextroamphetamine/Amphetamine Xr 10 Mg Cap.Er.24h) 30 mg PO DAILY [facility] Last Admin: 06/10/23 10:07 Dose: 30 mg Clonidine HCl (Clonidine Hcl 0.1 Mg Tablet) 0.1 mg PO QID PRN; Protocol PRN Reason: agitation Last Admin: 06/09/23 19:14 Dose: 0.1 mg Estradiol (Estradiol 0.5 Mg Tablet) 2 mg PO TID [facility] Last Admin: 06/10/23 10:08 Dose: 2 mg Hydroxyzine HCl (Hydroxyzine Hcl 50 Mg Tablet) 50 mg PO TID PRN PRN Reason: anxiety Last Admin: 06/09/23 20:22 Dose: 50 mg Lamotrigine (Lamotrigine 100 Mg Tablet) 200 mg PO DAILY [facility] Last Admin: 06/10/23 10:07 Dose: 200 mg Magnesium Hydroxide (Milk Of Magnesia 30 Ml Oral.Susp) 30 ml PO DAILY PRN PRN Reason: Constipation Methadone HCl (Methadone Hcl 20 Mg/2 Ml Oral.Conc) 180 mg PO DAILY [facility] Last Admin: 06/10/23 10:11 Dose: 180 mg Nicotine Polacrilex (Nicotine Polacrilex 2 Mg Gum) 4 mg BUCCAL Q2H PRN PRN Reason: Nicotine Cravings Non-Formulary Medication (Estradiol Valerate) 10 mg IM QWEEK [facility] Non-Formulary Medication (Lisdexamfetamine [Vyvanse]) 70 mg PO QAM [facility] Prazosin HCl (Prazosin Hcl 1 Mg Capsule) 2 mg PO BEDTIME [facility]; Protocol Last Admin: 06/09/23 20:22 Dose: 2 mg Prazosin HCl (Prazosin Hcl 5 Mg Capsule) 10 mg PO BEDTIME [facility]; Protocol Last Admin: 06/09/23 20:24 Dose: 10 mg Sertraline HCl (Sertraline Hcl 100 Mg Tablet) 150 mg PO DAILY [facility] Last Admin: 06/10/23 10:09 Dose: 150 mg Spironolactone (Spironolactone 25 Mg Tablet) 100 mg PO BID [facility]; Protocol Last Admin: 06/10/23 10:08 Dose: 100 mg Trazodone HCl (Trazodone Hcl 50 Mg Tablet) 50 mg PO BEDTIME MRX1 PRN PRN Reason: Insomnia Allergies Allergies Allergy/AdvReac Type Severity Reaction Status Date / Time aripiprazole [From [facility]] Allergy Unknown UNKNOWN Verified 06/03/23 01:28 Assessment & Plan Assessment & Plan (1) Suicidal ideation: Status: Acute Code(s): R45.851 - Suicidal ideations (2) PTSD (post-traumatic stress disorder): Status: Acute Code(s): F43.10 - Post-traumatic stress disorder, unspecified (3) MDD (major depressive disorder), recurrent episode, severe: Status: Acute Code(s): F33.2 - Major depressive disorder, recurrent severe without psychotic features (4) Cocaine use disorder, moderate, dependence: Status: Acute Code(s): F14.20 - Cocaine dependence, uncomplicated (5) Opioid use disorder, moderate, dependence: Status: Acute Code(s): F11.20 - Opioid dependence, uncomplicated (6) ADHD: Status: Acute Code(s): F90.9 - Attention-deficit hyperactivity disorder, unspecified type (7) Cannabis use disorder, moderate, dependence: Status: Acute Code(s): F12.20 - Cannabis dependence, uncomplicated (8) Borderline personality disorder: Status: Acute Code(s): F60.3 - Borderline personality disorder Plan 4/2: restart/continue outpt meds. increase prazosin to 12 mg QHS for nightmares and insomnia. attempt to obtain vyvanse and estradiol IM from local pharmacy. use adderall XR [address] of vyvanse for now. T/C substance use Tx options. refer for therapy. /3: slept well, no nightmares. continue current mgmt. planning to D/C to respite after stabilization. 06/08: slept well after falling asleep. engaging in staff splitting. continue current mgmt. discussed meds with [facility], they are working on them presently. 06/09: slept well, no nightmares. feeling better, looking forward to seeing her son after discharge. planning for tuesday or tuesday discharge. continue current mgmt. awaiting meds from [facility] to be delivered. Reason for continued inpatient stay Substantial Risk for: inability to function and rapid decompensation Time Spent With Patient Time: Total time managing care of this patient today __25__ minutes.
[2023-06-10 20:00] VITALS: BP 148/90; PULSE 69; RESP 16; TEMP 36.4; O2SAT 96
[2023-06-10] MEDS: Prazosin HCL 1 MG CAPSULE 2 MG PO (20:51)
[2023-06-10] MEDS: Prazosin HCL 5 MG CAPSULE 10 MG PO (20:51)
[2023-06-10] MEDS: cloNIDine HCL 0.1 MG TABLET PO (20:53)
[2023-06-10] MEDS: hydrOXYzine HCL 50 MG TABLET PO (20:53)
[2023-06-11 07:50] VITALS: BP 87/42; PULSE 66; RESP 16; TEMP 36.8; O2SAT 95
[2023-06-11] MEDS: estradioL 0.5 MG TABLET 2 MG PO ×3 (09:57→20:21)
[2023-06-11] MEDS: Sertraline HCL 100 MG TABLET 150 MG PO (09:58)
[2023-06-11] MEDS: Dextroamphetamine/Amphetamine XR 10 MG CAP.ER.24H 30 MG PO (09:58)
[2023-06-11] MEDS: Spironolactone 25 MG TABLET 100 MG PO ×2 (09:58→20:20)
[2023-06-11] MEDS: lamoTRIgine 100 MG TABLET 200 MG PO (09:58)
[2023-06-11] MEDS: methADONE HCl 20 MG/2 ML ORAL.CONC 180 MG PO (10:01)
--- NOTE | 2023-06-11 11:30 | P.PNPSI_ITS ---
Subjective Subjective Date of Service: 06/11/23 Reason For Visit: SI Subjective Notes: Conditional Voluntary Interim History: met with patient. Discussed with Nursing. Med adherent. Some group attendance. Sleeping well. Overall reports feeling mood is stable. No concerns regarding medications. Looking forward to discharge after the weekend. Feels safe. Sleep good. Medication Compliance: Yes Side effects from medications: No Attending Groups: Intermittent Review of Systems Acute medical concerns: No Review of Systems Review of Systems Unremarkable Mental Status Exam Mental Status Exam Narrative: in bed. Hospital clothing. Fair hygiene. Organized. Euthymic. No SI. No HI. No agitation psychosis. Insight and judgment fair Diagnostics Vital Signs (24Hr): Vital Signs - 24 hr 06/10/23 20:00 06/11/23 07:50 Temperature 97.6 F 98.2 F Pulse Rate 69 66 Respiratory Rate 16 16 Blood Pressure 148/90 H 87/42 L Pulse Oximetry 96 95 Oxygen Delivery Method Room Air Room Air BMI result Body Mass Index 33.4 Labs 06/03/23 02:46 06/03/23 02:46 Medications Medications Current Medications Acetaminophen (Acetaminophen 325 Mg Tablet) 650 mg PO Q6H PRN PRN Reason: Headache/Pain Mild Scale (1-3) Last Admin: 06/07/23 14:35 Dose: 650 mg Al Hydroxide/Mg Hydroxide (Magnesium Hydrox/Alum Hydrox 30 Ml Oral.Susp) 30 ml PO Q6H PRN PRN Reason: Heartburn/Nausea Amphetamine/Dextroamphetamine (Dextroamphetamine/Amphetamine Xr 10 Mg Cap.Er.24h) 30 mg PO DAILY [facility] Last Admin: 06/11/23 09:58 Dose: 30 mg Clonidine HCl (Clonidine Hcl 0.1 Mg Tablet) 0.1 mg PO QID PRN; Protocol PRN Reason: agitation Last Admin: 06/10/23 20:53 Dose: 0.1 mg Estradiol (Estradiol 0.5 Mg Tablet) 2 mg PO TID [facility] Last Admin: 06/11/23 09:57 Dose: 2 mg Hydroxyzine HCl (Hydroxyzine Hcl 50 Mg Tablet) 50 mg PO TID PRN PRN Reason: anxiety Last Admin: 06/10/23 20:53 Dose: 50 mg Lamotrigine (Lamotrigine 100 Mg Tablet) 200 mg PO DAILY [facility] Last Admin: 06/11/23 09:58 Dose: 200 mg Magnesium Hydroxide (Milk Of Magnesia 30 Ml Oral.Susp) 30 ml PO DAILY PRN PRN Reason: Constipation Methadone HCl (Methadone Hcl 20 Mg/2 Ml Oral.Conc) 180 mg PO DAILY [facility] Last Admin: 06/11/23 10:01 Dose: 180 mg Nicotine Polacrilex (Nicotine Polacrilex 2 Mg Gum) 4 mg BUCCAL Q2H PRN PRN Reason: Nicotine Cravings Non-Formulary Medication (Estradiol Valerate) 10 mg IM QWEEK [facility] Non-Formulary Medication (Lisdexamfetamine [Vyvanse]) 70 mg PO QAM [facility] Prazosin HCl (Prazosin Hcl 1 Mg Capsule) 2 mg PO BEDTIME [facility]; Protocol Last Admin: 06/10/23 20:51 Dose: 2 mg Prazosin HCl (Prazosin Hcl 5 Mg Capsule) 10 mg PO BEDTIME [facility]; Protocol Last Admin: 06/10/23 20:51 Dose: 10 mg Sertraline HCl (Sertraline Hcl 100 Mg Tablet) 150 mg PO DAILY [facility] Last Admin: 06/11/23 09:58 Dose: 150 mg Spironolactone (Spironolactone 25 Mg Tablet) 100 mg PO BID [facility]; Protocol Last Admin: 06/11/23 09:58 Dose: 100 mg Trazodone HCl (Trazodone Hcl 50 Mg Tablet) 50 mg PO BEDTIME MRX1 PRN PRN Reason: Insomnia Allergies Allergies Allergy/AdvReac Type Severity Reaction Status Date / Time aripiprazole [From [facility]] Allergy Unknown UNKNOWN Verified 06/03/23 01:28 Assessment & Plan Assessment & Plan (1) Suicidal ideation: Status: Acute Code(s): R45.851 - Suicidal ideations (2) PTSD (post-traumatic stress disorder): Status: Acute Code(s): F43.10 - Post-traumatic stress disorder, unspecified (3) MDD (major depressive disorder), recurrent episode, severe: Status: Acute Code(s): F33.2 - Major depressive disorder, recurrent severe without psychotic features (4) Cocaine use disorder, moderate, dependence: Status: Acute Code(s): F14.20 - Cocaine dependence, uncomplicated (5) Opioid use disorder, moderate, dependence: Status: Acute Code(s): F11.20 - Opioid dependence, uncomplicated (6) ADHD: Status: Acute Code(s): F90.9 - Attention-deficit hyperactivity disorder, unspecified type (7) Cannabis use disorder, moderate, dependence: Status: Acute Code(s): F12.20 - Cannabis dependence, uncomplicated (8) Borderline personality disorder: Status: Acute Code(s): F60.3 - Borderline personality disorder Plan 06/06: restart/continue outpt meds. increase prazosin to 12 mg QHS for nightmares and insomnia. attempt to obtain vyvanse and estradiol IM from local pharmacy. use adderall XR [address] of vyvanse for now. T/C substance use Tx options. refer for therapy. 06/07: slept well, no nightmares. continue current mgmt. planning to D/C to respite after stabilization. 06/08: slept well after falling asleep. engaging in staff splitting. continue current mgmt. discussed meds with [facility], they are working on them presently. 06/09: slept well, no nightmares. feeling better, looking forward to seeing her son after discharge. planning for tuesday or tuesday discharge. continue current mgmt. awaiting meds from [facility] to be delivered. 06/10: no changes Reason for continued inpatient stay Substantial Risk for: rapid decompensation Time Spent With Patient Time: Total time managing care of this patient today ____ minutes.
[2023-06-11 19:55] VITALS: BP 117/69; PULSE 78; RESP 16; TEMP 37.1; O2SAT 97
[2023-06-11] MEDS: Prazosin HCL 1 MG CAPSULE 2 MG PO (20:19)
[2023-06-11] MEDS: Prazosin HCL 5 MG CAPSULE 10 MG PO (20:20)
[2023-06-11] MEDS: hydrOXYzine HCL 50 MG TABLET PO (20:21)
[2023-06-11] MEDS: cloNIDine HCL 0.1 MG TABLET PO (20:22)
[2023-06-12 07:20] VITALS: BP 95/52; PULSE 57; RESP 14; TEMP 36.4; O2SAT 98
[2023-06-12] MEDS: estradioL 0.5 MG TABLET 2 MG PO ×3 (08:24→20:12)
[2023-06-12] MEDS: lamoTRIgine 100 MG TABLET 200 MG PO (08:25)
[2023-06-12] MEDS: Spironolactone 25 MG TABLET 100 MG PO ×2 (08:25→20:12)
[2023-06-12] MEDS: Sertraline HCL 100 MG TABLET 150 MG PO (08:25)
[2023-06-12] MEDS: Dextroamphetamine/Amphetamine XR 10 MG CAP.ER.24H 30 MG PO (08:26)
[2023-06-12] MEDS: methADONE HCl 20 MG/2 ML ORAL.CONC 180 MG PO (08:27)
--- NOTE | 2023-06-12 12:06 | HO.PSYCHPN ---
Subjective Subjective Date of Service: 06/12/23 Reason For Visit: SI Interim History: met with patient. Discussed with Nursing. Med adherent. Sleeping well. Overall reports feeling mood is stable. main concern is having medications at home and there being issues with [facility] delivering medications. Also some anxiety that the 1st of the month his past and they do not want to miss paying the rent. Looking forward to discharge after the weekend. Feels safe. Sleep good. Medication Compliance: Yes Side effects from medications: No Attending Groups: Intermittent Review of Systems Acute medical concerns: No Review of Systems Review of Systems Unremarkable Mental Status Exam Mental Status Exam Narrative: in bed. Hospital clothing. Fair hygiene. Organized. Euthymic. No SI. No HI. No agitation psychosis. Insight and judgment fair Diagnostics Vital Signs (24Hr): Vital Signs - 24 hr 06/11/23 19:55 06/12/23 07:20 Temperature 98.7 F 97.5 F Pulse Rate 78 57 Respiratory Rate 16 14 Blood Pressure 117/69 95/52 L Pulse Oximetry 97 98 Oxygen Delivery Method Room Air Room Air BMI result Body Mass Index 33.4 Labs 06/03/23 02:46 06/03/23 02:46 Medications Medications Current Medications Acetaminophen (Acetaminophen 325 Mg Tablet) 650 mg PO Q6H PRN PRN Reason: Headache/Pain Mild Scale (1-3) Last Admin: 06/07/23 14:35 Dose: 650 mg Al Hydroxide/Mg Hydroxide (Magnesium Hydrox/Alum Hydrox 30 Ml Oral.Susp) 30 ml PO Q6H PRN PRN Reason: Heartburn/Nausea Amphetamine/Dextroamphetamine (Dextroamphetamine/Amphetamine Xr 10 Mg Cap.Er.24h) 30 mg PO DAILY [facility] Last Admin: 06/12/23 08:26 Dose: 30 mg Clonidine HCl (Clonidine Hcl 0.1 Mg Tablet) 0.1 mg PO QID PRN; Protocol PRN Reason: agitation Last Admin: 06/11/23 20:22 Dose: 0.1 mg Estradiol (Estradiol 0.5 Mg Tablet) 2 mg PO TID [facility] Last Admin: 06/12/23 08:24 Dose: 2 mg Hydroxyzine HCl (Hydroxyzine Hcl 50 Mg Tablet) 50 mg PO TID PRN PRN Reason: anxiety Last Admin: 06/11/23 20:21 Dose: 50 mg Lamotrigine (Lamotrigine 100 Mg Tablet) 200 mg PO DAILY [facility] Last Admin: 06/12/23 08:25 Dose: 200 mg Magnesium Hydroxide (Milk Of Magnesia 30 Ml Oral.Susp) 30 ml PO DAILY PRN PRN Reason: Constipation Methadone HCl (Methadone Hcl 20 Mg/2 Ml Oral.Conc) 180 mg PO DAILY [facility] Last Admin: 06/12/23 08:27 Dose: 180 mg Nicotine Polacrilex (Nicotine Polacrilex 2 Mg Gum) 4 mg BUCCAL Q2H PRN PRN Reason: Nicotine Cravings Non-Formulary Medication (Estradiol Valerate) 10 mg IM QWEEK ON LICENSE OF [facility] Non-Formulary Medication (Lisdexamfetamine [Vyvanse]) 70 mg PO QAM [facility] Prazosin HCl (Prazosin Hcl 1 Mg Capsule) 2 mg PO BEDTIME ON [facility] OF [facility]; Protocol Last Admin: 06/11/23 20:19 Dose: 2 mg Prazosin HCl (Prazosin Hcl 5 Mg Capsule) 10 mg PO BEDTIME [facility]; Protocol Last Admin: 06/11/23 20:20 Dose: 10 mg Sertraline HCl (Sertraline Hcl 100 Mg Tablet) 150 mg PO DAILY [facility] Last Admin: 06/12/23 08:25 Dose: 150 mg Spironolactone (Spironolactone 25 Mg Tablet) 100 mg PO BID [facility]; Protocol Last Admin: 06/12/23 08:25 Dose: 100 mg Trazodone HCl (Trazodone Hcl 50 Mg Tablet) 50 mg PO BEDTIME MRX1 PRN PRN Reason: Insomnia Allergies Allergies Allergy/AdvReac Type Severity Reaction Status Date / Time aripiprazole [From [facility]] Allergy Unknown UNKNOWN Verified 06/03/23 01:28 Assessment & Plan Assessment & Plan (1) Suicidal ideation: Status: Acute Code(s): R45.851 - Suicidal ideations (2) PTSD (post-traumatic stress disorder): Status: Acute Code(s): F43.10 - Post-traumatic stress disorder, unspecified (3) MDD (major depressive disorder), recurrent episode, severe: Status: Acute Code(s): F33.2 - Major depressive disorder, recurrent severe without psychotic features (4) Cocaine use disorder, moderate, dependence: Status: Acute Code(s): F14.20 - Cocaine dependence, uncomplicated (5) Opioid use disorder, moderate, dependence: Status: Acute Code(s): F11.20 - Opioid dependence, uncomplicated (6) ADHD: Status: Acute Code(s): F90.9 - Attention-deficit hyperactivity disorder, unspecified type (7) Cannabis use disorder, moderate, dependence: Status: Acute Code(s): F12.20 - Cannabis dependence, uncomplicated (8) Borderline personality disorder: Status: Acute Code(s): F60.3 - Borderline personality disorder Plan 06/06: restart/continue outpt meds. increase prazosin to 12 mg QHS for nightmares and insomnia. attempt to obtain vyvanse and estradiol IM from local pharmacy. use adderall XR [address] of vyvanse for now. T/C substance use Tx options. refer for therapy. 06/07: slept well, no nightmares. continue current mgmt. planning to D/C to respite after stabilization. 06/08: slept well after falling asleep. engaging in staff splitting. continue current mgmt. discussed meds with [facility], they are working on them presently. 06/09: slept well, no nightmares. feeling better, looking forward to seeing her son after discharge. planning for tuesday or tuesday discharge. continue current mgmt. awaiting meds from [facility] to be delivered. 06/10: no changes 06/11: no changes Reason for continued inpatient stay Substantial Risk for: rapid decompensation Time Spent With Patient Time: Total time managing care of this patient today ____ minutes.
[2023-06-12 20:09] VITALS: BP 106/60; PULSE 63; RESP 16; TEMP 36.5; O2SAT 97
[2023-06-12] MEDS: Prazosin HCL 1 MG CAPSULE 2 MG PO (20:11)
[2023-06-12] MEDS: cloNIDine HCL 0.1 MG TABLET PO (20:11)
[2023-06-12] MEDS: Prazosin HCL 5 MG CAPSULE 10 MG PO (20:11)
[2023-06-12] MEDS: hydrOXYzine HCL 50 MG TABLET PO (20:11)
[2023-06-13 06:00] VITALS: BP 98/51; PULSE 63; RESP 16; TEMP 36.9; O2SAT 97
[2023-06-13] MEDS: Dextroamphetamine/Amphetamine XR 10 MG CAP.ER.24H 30 MG PO (08:29)
[2023-06-13] MEDS: Sertraline HCL 100 MG TABLET 150 MG PO (08:29)
[2023-06-13] MEDS: lamoTRIgine 100 MG TABLET 200 MG PO (08:29)
[2023-06-13] MEDS: Spironolactone 25 MG TABLET 100 MG PO ×2 (08:29→20:33)
[2023-06-13] MEDS: methADONE HCl 20 MG/2 ML ORAL.CONC 180 MG PO (08:32)
[2023-06-13] MEDS: estradioL 0.5 MG TABLET 2 MG PO ×3 (09:48→20:33)
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
[2023-06-13 19:05] VITALS: BP 135/90; PULSE 82; RESP 18; TEMP 36.3; O2SAT 96
[2023-06-13] MEDS: cloNIDine HCL 0.1 MG TABLET PO (19:07)
[2023-06-13] MEDS: Prazosin HCL 5 MG CAPSULE 10 MG PO (20:33)
[2023-06-13] MEDS: Prazosin HCL 1 MG CAPSULE 2 MG PO (20:33)
[2023-06-14 06:00] VITALS: BP 130/79; PULSE 99; O2SAT 96
[2023-06-14] MEDS: Sertraline HCL 100 MG TABLET 150 MG PO (08:53)
[2023-06-14] MEDS: Dextroamphetamine/Amphetamine XR 10 MG CAP.ER.24H 30 MG PO (08:54)
[2023-06-14] MEDS: estradioL 0.5 MG TABLET 2 MG PO (08:55)
[2023-06-14] MEDS: lamoTRIgine 100 MG TABLET 200 MG PO (08:55)
[2023-06-14] MEDS: methADONE HCl 20 MG/2 ML ORAL.CONC 180 MG PO (08:56)
[2023-06-14] MEDS: Spironolactone 25 MG TABLET 100 MG PO (10:26)
== END 2023-06-14 10:50 | disposition home or self-care (01) | DRG 885 ==
LOC: HO.ED 03:01 → HO.PADLT16 06-06 12:59
PROVIDERS: Admitting Provider Psychiatry & Neurology Psychiatry; Emergency Provider Emergency Medicine; Visit Provider Psychiatry & Neurology Psychiatry
DX: F33.2 Major depressive disorder, recurrent severe without psychotic features (principal); R45.851 Suicidal ideations; F11.20 Opioid dependence, uncomplicated; F14.20 Cocaine dependence, uncomplicated; F17.210 Nicotine dependence, cigarettes, uncomplicated; F43.12 Post-traumatic stress disorder, chronic; Z71.6 Tobacco abuse counseling; F90.9 Attention-deficit hyperactivity disorder, unspecified type; F12.20 Cannabis dependence, uncomplicated; F60.3 Borderline personality disorder; Z62.810 Personal history of physical and sexual abuse in childhood; Z20.822 Contact with and (suspected) exposure to COVID-19; Z79.899 Other long term (current) drug therapy
CPT/HCPCS: 36415; 80053; 80307; 81003; 82248; 85025; 87635; 93005; 99285; S9485

== ENCOUNTER → 2023-06-03 12:45 | Outpatient (BNV) | payer OTHER, SELFPAY | PROVIDERS: Emergency Provider Emergency Medicine; Visit Provider Internal Medicine Cardiovascular Disease | DX: R00.1 Bradycardia, unspecified (principal) | CPT/HCPCS: 93010 ==

== ENCOUNTER → 2023-06-06 12:59 | Outpatient (BNV) | payer OTHER, SELFPAY | PROVIDERS: Admitting Provider Psychiatry & Neurology Psychiatry; Emergency Provider Emergency Medicine; Visit Provider Psychiatry & Neurology Psychiatry | DX: F33.2 Major depressive disorder, recurrent severe without psychotic features (principal); F14.20 Cocaine dependence, uncomplicated; R45.851 Suicidal ideations; F43.11 Post-traumatic stress disorder, acute; F11.20 Opioid dependence, uncomplicated; F90.9 Attention-deficit hyperactivity disorder, unspecified type; F12.20 Cannabis dependence, uncomplicated; F60.3 Borderline personality disorder | CPT/HCPCS: 90792; 99231; 99232; 99239 ==

== ENCOUNTER 2023-08-15 11:24 | Emergency (ER) | payer OTHER, SELFPAY ==
[2023-08-15 12:55] VITALS: BP 112/77; PULSE 75; RESP 16; TEMP 36.3; O2SAT 97; BMI 35.4
--- NOTE | 2023-08-15 12:55 | ED.GENADULT ---
HPI - General Adult General Chief complaint: General Medical Stated complaint: Methadone dose Time Seen by Provider: 08/15/23 13:48 Source: patient Mode of arrival: ambulatory Limitations: no limitations History of Present Illness ED Provider: Ramonita Nguyễn PA-C HPI narrative: Patient is a 32 year old assigned male at , now female, with a history of PTSD, MDD, bipolar disorder, and methadone use presenting to the emergency department today requesting her methadone dose. Patient states that yesterday she was unable to get to the clinic and today she overslept, missing the clinic. Patient states that she is on 180mg of methadone daily. Patient denies any dizziness, lightheadedness, abdominal pain, nausea, vomiting, fever, chills, blurry vision, double vision, loss of vision, chest pain, difficulty breathing, shortness of breath, back pain, night sweats, pain with urination, increased urinary frequency, increased urinary urgency, blood in her urine or stool, syncope or a near syncopal episode, recent trauma or falls, bowel incontinence, bladder incontinence, or any other complaints at this time. Relieving factors: none Exacerbating factors: none Associated symptoms: denies other symptoms Treatments prior to arrival: none Related Data Home Medications ?Medication ?Instructions ?Recorded ?Confirmed hydroxyzine pamoate 50 mg capsule 50 mg PO TID PRN anxiety 06/04/23 06/04/23 methadone 10 mg/mL oral 180 mg PO DAILY 06/04/23 08/15/23 concentrate (Methadone Intensol) spironolactone 100 mg tablet 100 mg PO BID 06/04/23 06/04/23 Previous Rx's ?Medication ?Instructions ?Recorded estradiol 2 mg tablet 2 mg PO TID 7 days #21 tabs 06/13/23 estradiol valerate 20 mg/mL 10 mg (0.5 mL) IM QWEEK #0 mL 06/13/23 intramuscular oil ibuprofen 600 mg tablet 600 mg PO QID PRN leg pain 30 days 06/13/23 #120 tabs lamotrigine 200 mg tablet 200 mg PO DAILY 30 days #30 tabs 06/13/23 lisdexamfetamine 70 mg capsule 70 mg PO QAM 7 days #7 caps 06/13/23 prazosin 1 mg capsule 2 mg PO BEDTIME 30 days #60 caps 06/13/23 prazosin 5 mg capsule 10 mg PO BEDTIME 30 days #60 caps 06/13/23 sertraline 150 mg capsule 150 mg PO DAILY 30 days #30 caps 06/13/23 Allergies Allergy/AdvReac Type Severity Reaction Status Date / Time aripiprazole [From ABILIFY] Allergy Unknown UNKNOWN Verified 08/15/23 12:58 Review of Systems Constitutional: Constitutional: Reports no additional constitutional complaints, Denies chills, Denies fever(s) and Denies night sweats Eyes: Eyes: Reports no additional eye complaints, Denies blurry vision, Denies change in vision, Denies diplopia, Denies eye discharge, Denies loss of vision and Denies eye pain ENT: Denies dizziness Cardiovascular: Cardiovascular: Reports no additional cardiovascular complaints, Denies chest pain, Denies lightheadedness, Denies Loss of Consciousness and Denies dyspnea Respiratory: Respiratory: Reports no additional respiratory complaints and Denies dyspnea Gastrointestinal: Gastrointestinal: Reports no additional gastrointestinal complaints, Denies abdominal pain, Denies melena, Denies hematochezia, Denies change in bowel habits and Denies change in stool character Genitourinary: Genitourinary: Reports no additional male genitourinary complaints, Denies hematuria, Denies oliguria, Denies difficulty urinating, Denies dysuria, Denies urinary frequency, Denies urinary hesitancy, Denies urinary incontinence and Denies urinary urgency Musculoskeletal: Musculoskeletal: Reports no additional musculoskeletal complaints, Denies numbness and Denies tingling Neurologic: Denies dizziness, Denies loss of vision, Denies numbness and Denies tingling Psychiatric: Psychiatric: Reports no additional psychiatric complaints Endocrine: Endocrine: Reports no additional endocrine complaints Hematologic/Lymphatic: Hematologic/Lymphatic: Reports no additional hematologic/lymphatic complaints Allergic/Immunologic: Allergic/Immunologic: Reports no additional allergic/immunologic complaints [facility] Past Medical History Attestation statement: The following information was validated with the patient. Source: old records reviewed and nursing notes reviewed Medical History MDD (major depressive disorder), recurrent episode, severe Polysubstance abuse Perianal cyst Opioid use disorder, severe, dependence Opiate misuse Cocaine substance abuse Borderline personality disorder PTSD (post-traumatic stress disorder) HTN (hypertension) Tibial torsion, bilateral Asthma IBS (irritable bowel syndrome) Abscess of left upper extremity ADHD Depression Anxiety PTSD (post-traumatic stress disorder) Social History Social History Household Members: Friend(s) Housing: Apartment Housing Other:: [place] [facility] Do you presently have visiting nurse or other home services: No Unable to assess alcohol history related to: Refusing to respond Alcohol intake: never Patient Tobacco Use Status: Current everyday Tobacco user Tobacco use type: Cigarette Cigarette Packs Per Day: 1 Cigarettes Per Day: 20.0 Years Smoked: 15 e-Cigarette/Vaping Use: Never Used Second Hand Smoke Exposure: No Substance Use Type: Crack/Cocaine, Heroin and Opiates service: No Current occupational status: unemployed Sexual orientation: Don't Know Physical Exam ED Vital Signs: Vital Signs - 24 hr 08/15/23 12:55 Temperature 97.3 F Pulse Rate 75 Respiratory Rate 16 Blood Pressure 112/77 Pulse Oximetry 97 Oxygen Delivery Method Room Air BMI result Body Mass Index 35.4 Const General: cooperative, no acute distress, alert and awake Nutritional Appearance: well nourished Orientation/consciousness: patient oriented x3 Limitations: no limitations HENMT Head: Yes normal to inspection and Yes atraumatic Ears: hearing grossly normal bilaterally and external ears normal General nose exam: Normal external nose present, no nasal discharge noted and no epistaxis Face and sinus: Yes normal facial exam, No abrasion and No laceration Mouth: Normal oral and palatal mucosa present, no drooling and no muffled voice Eyes General: appearance normal, both eyes and all related structures Periorbital: periorbital findings normal Eyelids: Yes eyelids normal Conjunctivae: conjunctivae normal Pupils: Equal, round and reactive pupils present EOM: EOMs intact bilaterally Neck Neck: Yes normal visual inspection, Yes full ROM and Yes no lymphadenopathy Chest Chest palpation & inspection: normal inspection of the chest Resp Effort & Inspection: normal respiratory effort and able to speak in complete sentences GI Inspection: Yes normal to inspection Neuro General: patient oriented x3 and moves all extremities Cranial nerves: Yes Equal, round and reactive pupils present Cognition (Neuro): normal cognition Motor exam (neuro): 5/5 motor strength present throughout Sensory Exam: Normal double simultaneous stimulation for sensation Coordination: [id number] test normal Extrem General: Yes normal to inspection, Yes full ROM and Yes capillary refill normal Psych Appearance: grossly normal Mental Status: mental status grossly normal Affect: normal affect Attitude: cooperative Thought process: Normal thought process present Thought content: Normal thought content present Insight: Good insight present (Psych) Course Course Course Narrative: RME performed by Ramonita Nguyễn PA-C. Patient is a 32 year old assigned male, now female, at presenting to the emergency department requesting a methadone dose. Detailed physical exam and review of systems are deferred to the hybrid car mechanic. Patient placed back in the waiting room pending room availability. Medications Administered Discontinued Medications Generic Name Dose Route Start Last Admin Trade Name Virgie PRN Reason Stop Dose Admin Methadone HCl 180 mg 08/15/23 13:37 08/15/23 13:49 Methadone Hcl 20 Mg/2 Ml Oral.Conc PO 08/15/23 13:38 180 mg ONCE ONE Administration Medical Decision Making Medical Decision Making MDM Narrative: Patient is a 32 year old assigned male at , now female, with a history of PTSD, MDD, bipolar disorder, and methadone use presenting to the emergency department today requesting her methadone dose. Patient's physical exam was unremarkable. I explained my physical exam findings to the patient. I answered all questions asked by the patient. Patient's methadone dose was verified and she was given her dose here in the ED. I stressed the importance of the patient taking her medication as prescribed. I stressed the importance of the patient following up with her primary care provider. I stressed the importance of the patient returning to the emergency department immediately if she were to develop any dizziness, shortness of breath, difficulty breathing, chest pain, blurry vision, loss of vision, nausea, vomiting, abdominal pain, fever, chills, back pain, or any other complaints. Patient verbalized agreement and understanding with this treatment plan and discharge. Differential Diagnosis Differential Diagnoses: The differential diagnosis associated with the presentation includes Methadone use Opiate use Admission/Observation Consideration of admission/observation: Escalation of care including admission/observation considered Patient would have been admitted to the hospital had her clinical presentation warranted hospital admission. Discharge Plan Discharge Clinical Impression: Methadone use Patient Disposition: Home, Self-Care Additional Instructions: Follow up with your primary care provider. Return to the emergency department immediately if your symptoms worsen or if you develop any dizziness, shortness of breath, difficulty breathing, chest pain, blurry vision, loss of vision, nausea, vomiting, abdominal pain, fever, chills, back pain, or any other complaints. Prescriptions: No Action methadone [Methadone Intensol] 10 mg/mL Concentrate 180 mg PO DAILY spironolactone 100 mg tablet 100 mg PO BID hydroxyzine pamoate 50 mg capsule 50 mg PO TID PRN (Reason: anxiety) prazosin 1 mg Capsule 2 mg PO BEDTIME 30 Days Qty: 60 0RF Protocol: Hold for SBP< HOLD for SBP < : 90 prazosin 5 mg Capsule 10 mg PO BEDTIME 30 Days Qty: 60 0RF Protocol: Hold for SBP< HOLD for SBP < : 90 lisdexamfetamine 70 mg Capsule 70 mg PO QAM 7 Days Qty: 7 0RF Rx Instructions: Partial Fill upon patient request. estradiol 2 mg tablet 2 mg PO TID 7 Days Qty: 21 0RF estradiol valerate 20 mg/mL Oil 10 mg IM QWEEK Qty: 0 0RF lamotrigine 200 mg tablet 200 mg PO DAILY 30 Days Qty: 30 0RF sertraline 150 mg capsule 150 mg PO DAILY 30 Days Qty: 30 0RF ibuprofen 600 mg tablet 600 mg PO QID PRN (Reason: leg pain) 30 Days Qty: 120 0RF Referrals: [facility] [place]] (Call to establish and follow up with a primary care provider. If you already have a primary care provider, please follow up with them.) [facility] [place] Group] [facility] [[facility] Group] Print Language: [place] Island[place]
--- NOTE | 2023-08-15 13:42 | HE.PHANOTE ---
RE: METHADONE DOSE Last dose of methadone 180 mg was given on 08/13/23 @0735 at [facility] per DEBORAH Oliva.
[2023-08-15] MEDS: methADONE HCl 20 MG/2 ML ORAL.CONC 180 MG PO (13:49)
[2023-08-15 13:54] VITALS: BP 112/77; PULSE 75; RESP 20; TEMP 36.3; O2SAT 97
== END 2023-08-15 13:55 | disposition home or self-care (01) ==
LOC: HO.ED 13:54
PROVIDERS: Emergency Provider Emergency Medicine
DX: F11.20 Opioid dependence, uncomplicated (principal); I10 Essential (primary) hypertension; J45.909 Unspecified asthma, uncomplicated
CPT/HCPCS: 99282; 99283

== ENCOUNTER 2023-10-06 19:23 | Inpatient (IN) | payer OTHER, SELFPAY ==
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
[2023-10-06 20:00] VITALS: BP 159/81; PULSE 161; RESP 22; TEMP 36.6; O2SAT 96
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
--- NOTE | 2023-10-07 08:10 | HE.PHANOTE ---
METHADONE Dose: 185mg, last dosed on 10/05/23@0722 per MIKE Hutchinson. Note also states dose was reconfirmed by [facility] and given 10/06/23.
[2023-10-07] MEDS: methADONE HCl 20 MG/2 ML ORAL.CONC 185 MG PO (08:19)
[2023-10-07 10:00] VITALS: BP 141/67; PULSE 62; RESP 18; TEMP 36.6; O2SAT 97
[2023-10-07] MEDS: Dextroamphetamine/Amphetamine XR 10 MG CAP.ER.24H 30 MG PO (10:24)
[2023-10-07] MEDS: Spironolactone 25 MG TABLET 100 MG PO ×2 (10:25→21:27)
[2023-10-07] MEDS: Sertraline HCL 50 MG TABLET 150 MG PO (10:25)
[2023-10-07] MEDS: lamoTRIgine 100 MG TABLET PO (10:52)
[2023-10-07] MEDS: estradioL 0.5 MG TABLET 2 MG PO ×3 (10:52→21:26)
[2023-10-07] MEDS: Nicotine 21 MG PATCH.TD24 TRANSDERMA (11:26)
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
[2023-10-07] MEDS: LORazepam 0.5 MG TABLET PO ×2 (12:52→16:02)
--- NOTE | 2023-10-07 13:34 | MHC.CLN ---
RE: CONSULT PT DOES NOT HAVE CURRENT HT AND WT AVAILABLE PREVIOUS WT HX REVEALS 108.8KG (08/15/23) HT USED 5'9 FROM PREVIOUS ADMISSION PT IS OBESE FOR HT, BUT REPORTS WT LOSS (OF UNSPECIFIED AMOUNT) D/T FOOD INSECURITY DIET REGULAR-APPROPRIATE PT DOES NOT APPEAR TO BE MALNOURISHED AT THIS TIME PLAN: OBTAIN CURRENT HT AND WT IF PO INTAKE <25% X 3 DAYS, RECOMMEND ADDING NUTRITION SUPPLEMENT CONTINUE CURRENT CARE PLAN
[2023-10-07] MEDS: Dextroamphetamine/Amphetamine XR 5 MG CAP.ER.24H PO (15:27)
[2023-10-07] MEDS: Acetaminophen 325 MG TABLET 650 MG PO (16:01)
[2023-10-07] MEDS: Ibuprofen 800 MG TABLET PO (18:01)
[2023-10-07 20:00] VITALS: BP 124/74; PULSE 61; RESP 16; TEMP 36.5; O2SAT 97
[2023-10-07] MEDS: Prazosin HCL 1 MG CAPSULE 12 MG PO (21:25)
[2023-10-07] MEDS: methocarbamoL 750 MG TABLET PO (21:26)
[2023-10-07] MEDS: hydrOXYzine HCL 50 MG TABLET PO (21:28)
[2023-10-08] MEDS: methADONE HCl 20 MG/2 ML ORAL.CONC 185 MG PO (07:41)
[2023-10-08] MEDS: estradioL 0.5 MG TABLET 2 MG PO ×3 (08:27→22:16)
[2023-10-08] MEDS: Sertraline HCL 50 MG TABLET 150 MG PO (08:27)
[2023-10-08] MEDS: Dextroamphetamine/Amphetamine XR 5 MG CAP.ER.24H PO (08:28)
[2023-10-08] MEDS: lamoTRIgine 25 MG TABLET 125 MG PO (08:28)
[2023-10-08] MEDS: Dextroamphetamine/Amphetamine XR 10 MG CAP.ER.24H 30 MG PO (08:28)
[2023-10-08] MEDS: Nicotine 21 MG PATCH.TD24 TRANSDERMA (08:48)
[2023-10-08] MEDS: Ibuprofen 800 MG TABLET PO ×2 (08:49→17:45)
[2023-10-08 09:04] VITALS: BP 120/73; PULSE 98; RESP 16; TEMP 36.6; O2SAT 99
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
[2023-10-08] MEDS: Spironolactone 25 MG TABLET 100 MG PO ×2 (10:40→22:16)
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
[2023-10-08] MEDS: Acetaminophen 325 MG TABLET 650 MG PO (17:45)
[2023-10-08] MEDS: Benzocaine 20 % Oral Gel 9 GM TUBE 1 APPL MUCOUS MEM (18:29)
[2023-10-08 20:00] VITALS: RESP 18
[2023-10-08] MEDS: Prazosin HCL 1 MG CAPSULE 12 MG PO (22:14)
[2023-10-09] MEDS: methADONE HCl 20 MG/2 ML ORAL.CONC 185 MG PO (07:50)
[2023-10-09] MEDS: Spironolactone 25 MG TABLET 100 MG PO ×2 (08:21→20:42)
[2023-10-09] MEDS: lamoTRIgine 25 MG TABLET 125 MG PO (08:21)
[2023-10-09] MEDS: Sertraline HCL 50 MG TABLET 150 MG PO (08:21)
[2023-10-09] MEDS: estradioL 0.5 MG TABLET 2 MG PO ×3 (08:21→20:41)
[2023-10-09] MEDS: Dextroamphetamine/Amphetamine XR 5 MG CAP.ER.24H PO (08:21)
[2023-10-09] MEDS: Dextroamphetamine/Amphetamine XR 10 MG CAP.ER.24H 30 MG PO (08:22)
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
[2023-10-09] MEDS: Nicotine 21 MG PATCH.TD24 TRANSDERMA (08:43)
[2023-10-09 08:58] VITALS: BP 140/78; PULSE 60; RESP 16; TEMP 36.4; O2SAT 98
[2023-10-09] MEDS: Ibuprofen 800 MG TABLET PO ×2 (09:15→20:41)
[2023-10-09] MEDS: LORazepam 0.5 MG TABLET PO ×2 (09:45→19:02)
[2023-10-09] MEDS: Docusate Sodium 100 MG CAPSULE PO ×2 (11:37→20:41)
[2023-10-09] MEDS: methocarbamoL 750 MG TABLET PO ×3 (13:12→20:41)
[2023-10-09 20:00] VITALS: BP 144/67; PULSE 86; RESP 18; TEMP 36.3; O2SAT 97
[2023-10-09] MEDS: Prazosin HCL 1 MG CAPSULE 8 MG PO (20:40)
[2023-10-09] MEDS: Acetaminophen 325 MG TABLET 650 MG PO (20:41)
[2023-10-09] MEDS: Sennosides 8.6 MG TABLET 17.2 MG PO (20:42)
[2023-10-10 07:30] VITALS: BP 117/54; PULSE 66; RESP 17; TEMP 36.4; O2SAT 97
[2023-10-10] MEDS: methADONE HCl 20 MG/2 ML ORAL.CONC 185 MG PO (07:54)
[2023-10-10] MEDS: Dextroamphetamine/Amphetamine XR 10 MG CAP.ER.24H 30 MG PO (09:01)
[2023-10-10 09:02] VITALS: BP 117/54
[2023-10-10] MEDS: Docusate Sodium 100 MG CAPSULE PO ×2 (09:02→20:52)
[2023-10-10] MEDS: Sertraline HCL 50 MG TABLET 150 MG PO (09:02)
[2023-10-10] MEDS: Spironolactone 25 MG TABLET 100 MG PO ×2 (09:02→20:52)
[2023-10-10] MEDS: lamoTRIgine 100 MG TABLET PO (09:02)
[2023-10-10] MEDS: Dextroamphetamine/Amphetamine XR 5 MG CAP.ER.24H PO (09:03)
[2023-10-10] MEDS: estradioL 0.5 MG TABLET 2 MG PO ×3 (09:03→20:51)
[2023-10-10] MEDS: lamoTRIgine 25 MG TABLET PO (09:03)
[2023-10-10] MEDS: Ibuprofen 800 MG TABLET PO ×2 (09:43→20:49)
[2023-10-10] MEDS: Acetaminophen 325 MG TABLET 650 MG PO (15:24)
[2023-10-10] MEDS: LORazepam 0.5 MG TABLET PO ×2 (15:24→20:51)
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
[2023-10-10 20:00] VITALS: BP 126/75; PULSE 66; RESP 16; TEMP 36.6; O2SAT 98
[2023-10-10 20:50] VITALS: BP 126/75
[2023-10-10] MEDS: Prazosin HCL 1 MG CAPSULE 8 MG PO (20:50)
[2023-10-10] MEDS: methocarbamoL 750 MG TABLET PO (20:51)
[2023-10-10 20:52] VITALS: BP 126/75
[2023-10-10] MEDS: Sennosides 8.6 MG TABLET 17.2 MG PO (20:52)
[2023-10-11] MEDS: methADONE HCl 20 MG/2 ML ORAL.CONC 185 MG PO (08:02)
[2023-10-11 09:15] VITALS: BP 112/64; PULSE 62; RESP 16; TEMP 36.6; O2SAT 99
[2023-10-11] MEDS: Docusate Sodium 100 MG CAPSULE PO ×2 (09:15→21:12)
[2023-10-11] MEDS: Dextroamphetamine/Amphetamine XR 5 MG CAP.ER.24H PO (09:16)
[2023-10-11] MEDS: Dextroamphetamine/Amphetamine XR 10 MG CAP.ER.24H 30 MG PO (09:16)
[2023-10-11] MEDS: lamoTRIgine 100 MG TABLET PO (09:17)
[2023-10-11] MEDS: Sertraline HCL 50 MG TABLET 150 MG PO (09:17)
[2023-10-11] MEDS: lamoTRIgine 25 MG TABLET PO (09:17)
[2023-10-11] MEDS: Spironolactone 25 MG TABLET 100 MG PO ×2 (09:17→21:14)
[2023-10-11] MEDS: estradioL 0.5 MG TABLET 2 MG PO ×3 (09:18→21:15)
[2023-10-11] MEDS: Ibuprofen 800 MG TABLET PO ×2 (09:28→21:13)
[2023-10-11] MEDS: Nicotine 21 MG PATCH.TD24 TRANSDERMA (09:28)
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
[2023-10-11] MEDS: LORazepam 0.5 MG TABLET PO ×2 (12:06→21:12)
[2023-10-11] MEDS: Acetaminophen 325 MG TABLET 650 MG PO (13:37)
[2023-10-11] MEDS: methocarbamoL 750 MG TABLET PO ×2 (13:38→21:22)
[2023-10-11 20:00] VITALS: BP 110/53; PULSE 70; TEMP 36.3; O2SAT 97
[2023-10-11] MEDS: Sennosides 8.6 MG TABLET 17.2 MG PO (21:12)
[2023-10-11 21:13] VITALS: BP 128/75
[2023-10-11] MEDS: Prazosin HCL 1 MG CAPSULE 8 MG PO (21:13)
[2023-10-11 21:14] VITALS: BP 128/75
[2023-10-11] MEDS: hydrOXYzine HCL 50 MG TABLET PO (23:49)
[2023-10-12] MEDS: methADONE HCl 20 MG/2 ML ORAL.CONC 185 MG PO (07:48)
[2023-10-12] MEDS: Dextroamphetamine/Amphetamine XR 10 MG CAP.ER.24H 30 MG PO (08:58)
[2023-10-12] MEDS: lamoTRIgine 100 MG TABLET PO (08:59)
[2023-10-12] MEDS: Sertraline HCL 50 MG TABLET 150 MG PO (08:59)
[2023-10-12] MEDS: lamoTRIgine 25 MG TABLET PO (08:59)
[2023-10-12] MEDS: Spironolactone 25 MG TABLET 100 MG PO ×2 (08:59→21:15)
[2023-10-12] MEDS: Dextroamphetamine/Amphetamine XR 5 MG CAP.ER.24H PO (08:59)
[2023-10-12] MEDS: Docusate Sodium 100 MG CAPSULE PO ×2 (08:59→21:14)
[2023-10-12] MEDS: estradioL 0.5 MG TABLET 2 MG PO ×3 (09:00→21:14)
[2023-10-12 09:09] VITALS: BP 110/56; PULSE 66; RESP 18; TEMP 37.3; O2SAT 97
[2023-10-12] MEDS: LORazepam 0.5 MG TABLET PO ×2 (12:50→17:05)
[2023-10-12] MEDS: Ibuprofen 800 MG TABLET PO (14:29)
[2023-10-12] MEDS: Nicotine 21 MG PATCH.TD24 TRANSDERMA (14:38)
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
[2023-10-12] MEDS: methocarbamoL 750 MG TABLET PO ×2 (15:54→21:24)
[2023-10-12] MEDS: Acetaminophen 325 MG TABLET 650 MG PO (17:04)
[2023-10-12 20:00] VITALS: BP 121/68; PULSE 76; RESP 18; TEMP 36.7; O2SAT 97
[2023-10-12 21:15] VITALS: BP 121/68
[2023-10-12] MEDS: Sennosides 8.6 MG TABLET 17.2 MG PO (21:15)
[2023-10-12 21:19] VITALS: BP 121/68
[2023-10-12] MEDS: Prazosin HCL 1 MG CAPSULE 8 MG PO (21:19)
[2023-10-12] MEDS: hydrOXYzine HCL 50 MG TABLET PO (21:24)
[2023-10-13] MEDS: methADONE HCl 20 MG/2 ML ORAL.CONC 185 MG PO (07:47)
[2023-10-13] MEDS: Dextroamphetamine/Amphetamine XR 10 MG CAP.ER.24H 30 MG PO (09:41)
[2023-10-13] MEDS: Docusate Sodium 100 MG CAPSULE PO ×2 (09:41→20:04)
[2023-10-13] MEDS: Ibuprofen 800 MG TABLET PO ×2 (09:41→20:04)
[2023-10-13] MEDS: Spironolactone 25 MG TABLET 100 MG PO ×2 (09:42→20:02)
[2023-10-13] MEDS: lamoTRIgine 100 MG TABLET PO (09:43)
[2023-10-13] MEDS: Dextroamphetamine/Amphetamine XR 5 MG CAP.ER.24H PO (09:43)
[2023-10-13] MEDS: lamoTRIgine 25 MG TABLET PO (09:44)
[2023-10-13] MEDS: Sertraline HCL 50 MG TABLET 150 MG PO (09:44)
[2023-10-13] MEDS: estradioL 0.5 MG TABLET 2 MG PO (09:48)
[2023-10-13] MEDS: Nicotine 21 MG PATCH.TD24 TRANSDERMA (09:56)
[2023-10-13 12:26] LABS: MANUAL DIFF FLAG NO
[2023-10-13 12:31] LABS: Basophils Percent Auto 0.5 % (0-2); Eosinophils Absolute Auto 0.4 X10*3/uL (0.0-0.4); Eosinophils Percent Auto 4.9 % (0-4); Hematocrit 42.3 % (42.0-52.0); Hemoglobin 13.8 g/dl (14.0-18.0); Imm Gran Abs Auto 0.02 X10*3/uL (0.00-0.03); Imm Gran Pct Auto 0.2 % (0.0-0.4); Lymphocytes Absolute Auto 3.4 X10*3/uL (1.2-4.9); Lymphocytes Percent Auto 41.4 % (20-40); Mean Corpuscular HGB Conc 32.6 g/dl (31.0-36.0); Mean Corpuscular Hemoglobin 28.2 pg (27.0-33.0); Mean Corpuscular Volume 86.5 fL (80.0-98.0); Mean Platelet Volume 9.5 fL (9.4-12.4); Monocytes Absolute Auto 0.7 X10*3/uL (0.1-1.2); Monocytes Percent Auto 8.3 % (2-11); Neutrophils Absolute Auto 3.7 x10*3/uL (2.0-8.3); Neutrophils Percent Auto 44.7 % (45-73); Platelet Count 295 X10*3/uL (160-400); Red Blood Count 4.89 X10*6/uL (4.60-5.80); Red Cell Distribution Width 14.4 % (11.0-16.0); White Blood Count 8.2 X10*3/uL (4.8-10.8)
[2023-10-13 12:42] LABS: Estimated Average Glucose 103 mg/dL; Hemoglobin A1c % 5.2 % (<6.0)
[2023-10-13 13:01] LABS: Alanine Aminotransferase 22 U/L (0-40); Albumin Level 4.2 g/dL (3.5-5.0); Alkaline Phosphatase 63 U/L (39-117); Anion Gap 12 (12-20); Aspartate Amino Transferase 18 U/L (5-37); Bilirubin Total 0.2 mg/dL (0.0-1.0); Blood Urea Nitrogen 31 mg/dL (9-16); Calcium 10.5 mg/dL (8.4-10.2); Carbon Dioxide 33 mmol/L (22-29); Chloride 99 mmol/L (96-108); Cholesterol 213 mg/dL (<200); Estimated Glomerular Filt Rate > 60; Glucose Random 77 mg/dL (60-115); HDL Cholesterol 67 mg/dL (>40); LDL Cholesterol Calculated 134 mg/dL (<100); Potassium 5.8 mmol/L (3.3-5.1); Sodium 138 mmol/L (135-145); Total Protein 7.5 g/dL (6.5-8.0); Triglycerides 63 mg/dL (<150)
[2023-10-13 13:16] LABS: Thyroid Stimulating Hormone 4.46 uIU/mL (0.32-4.0)
[2023-10-13 13:24] LABS: HBS Num1 133.16 mIU/mL (0-7.99); HIV AB/AG Nonreactive (Nonreactive); HIV Num 1 0.05 S/CO (0.00-0.99); Hepatitis B Core Antibody Nonreactive (Nonreactive); Hepatitis B Surface Antigen Negative (Negative); ~HepC Num1 16.52 S/CO (0.00-0.79); ~Hepatitis A Antibody IgM Nonreactive (Nonreactive); ~Hepatitis B Surface Antibody REACTIVE (Nonreactive); ~Hepatitis C Antibody Reactive (Nonreactive)
[2023-10-13 13:29] LABS: Folate 9.9 ng/mL (> or = 4.0); Vitamin B12 750 pg/mL (200-900)
[2023-10-13] MEDS: Acetaminophen 325 MG TABLET 650 MG PO (14:49)
[2023-10-13] MEDS: methocarbamoL 750 MG TABLET PO ×2 (14:49→20:03)
[2023-10-13] MEDS: LORazepam 0.5 MG TABLET PO ×2 (14:50→20:03)
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
[2023-10-13 20:00] VITALS: BP 127/61; PULSE 90; RESP 18; TEMP 36.2; O2SAT 98
[2023-10-13 20:02] VITALS: BP 121/61; BP 127/61
[2023-10-13] MEDS: Prazosin HCL 1 MG CAPSULE 8 MG PO (20:02)
[2023-10-13] MEDS: Sennosides 8.6 MG TABLET 17.2 MG PO (20:04)
[2023-10-14] MEDS: methADONE HCl 20 MG/2 ML ORAL.CONC 185 MG PO (07:57)
[2023-10-14] MEDS: Docusate Sodium 100 MG CAPSULE PO ×2 (07:59→20:45)
[2023-10-14] MEDS: Nicotine 21 MG PATCH.TD24 TRANSDERMA (07:59)
[2023-10-14] MEDS: Sertraline HCL 50 MG TABLET 150 MG PO (07:59)
[2023-10-14] MEDS: Ibuprofen 800 MG TABLET PO ×2 (08:00→16:46)
[2023-10-14] MEDS: Dextroamphetamine/Amphetamine XR 10 MG CAP.ER.24H 30 MG PO (08:00)
[2023-10-14] MEDS: Dextroamphetamine/Amphetamine XR 5 MG CAP.ER.24H PO (08:00)
[2023-10-14] MEDS: lamoTRIgine 25 MG TABLET PO (08:01)
[2023-10-14] MEDS: Spironolactone 25 MG TABLET 100 MG PO ×2 (08:01→20:44)
[2023-10-14] MEDS: lamoTRIgine 100 MG TABLET PO (08:01)
[2023-10-14] MEDS: LORazepam 0.5 MG TABLET PO ×2 (10:54→18:49)
[2023-10-14] MEDS: Acetaminophen 325 MG TABLET 650 MG PO ×2 (10:55→18:49)
[2023-10-14] MEDS: methocarbamoL 750 MG TABLET PO ×2 (14:33→20:46)
[2023-10-14] MEDS: Benzocaine 20 % Oral Gel 9 GM TUBE 1 APPL MUCOUS MEM (16:46)
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
[2023-10-14 20:00] VITALS: BP 135/64; PULSE 78; TEMP 36.3; O2SAT 96
[2023-10-14] MEDS: Sennosides 8.6 MG TABLET 17.2 MG PO (20:47)
[2023-10-14 20:55] VITALS: BP 130/62
[2023-10-14] MEDS: Prazosin HCL 1 MG CAPSULE 8 MG PO (20:55)
[2023-10-15] MEDS: methADONE HCl 20 MG/2 ML ORAL.CONC 185 MG PO (07:52)
[2023-10-15 08:34] VITALS: BP 114/60; PULSE 70; RESP 18; TEMP 36.5; O2SAT 96
[2023-10-15] MEDS: Docusate Sodium 100 MG CAPSULE PO ×2 (08:41→21:36)
[2023-10-15] MEDS: Dextroamphetamine/Amphetamine XR 5 MG CAP.ER.24H PO (08:41)
[2023-10-15] MEDS: lamoTRIgine 25 MG TABLET PO (08:41)
[2023-10-15] MEDS: Dextroamphetamine/Amphetamine XR 10 MG CAP.ER.24H 30 MG PO (08:41)
[2023-10-15] MEDS: Sertraline HCL 50 MG TABLET 150 MG PO (08:41)
[2023-10-15] MEDS: lamoTRIgine 100 MG TABLET PO (08:41)
[2023-10-15] MEDS: Spironolactone 25 MG TABLET 100 MG PO ×2 (08:42→21:36)
[2023-10-15] MEDS: Ibuprofen 800 MG TABLET PO ×2 (09:48→17:47)
[2023-10-15] MEDS: Nicotine 21 MG PATCH.TD24 TRANSDERMA (10:12)
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
[2023-10-15] MEDS: LORazepam 0.5 MG TABLET PO ×2 (11:54→16:32)
[2023-10-15] MEDS: Benzocaine 20 % Oral Gel 9 GM TUBE 1 APPL MUCOUS MEM (14:41)
[2023-10-15] MEDS: Acetaminophen 325 MG TABLET 650 MG PO ×2 (14:43→21:36)
[2023-10-15] MEDS: methocarbamoL 750 MG TABLET PO ×2 (16:32→21:40)
[2023-10-15 20:00] VITALS: BP 121/56; PULSE 82; RESP 18; TEMP 36.6; O2SAT 97
[2023-10-15 21:34] VITALS: BP 121/56
[2023-10-15] MEDS: Prazosin HCL 1 MG CAPSULE 8 MG PO (21:34)
[2023-10-15] MEDS: Sennosides 8.6 MG TABLET 17.2 MG PO (21:35)
[2023-10-15 21:36] VITALS: BP 121/56
[2023-10-16] MEDS: methADONE HCl 20 MG/2 ML ORAL.CONC 185 MG PO (07:50)
[2023-10-16] MEDS: Dextroamphetamine/Amphetamine XR 5 MG CAP.ER.24H PO (09:00)
[2023-10-16] MEDS: Dextroamphetamine/Amphetamine XR 10 MG CAP.ER.24H 30 MG PO (09:00)
[2023-10-16 09:01] VITALS: BP 116/59
[2023-10-16] MEDS: Sertraline HCL 50 MG TABLET 150 MG PO (09:01)
[2023-10-16] MEDS: lamoTRIgine 25 MG TABLET PO (09:01)
[2023-10-16] MEDS: lamoTRIgine 100 MG TABLET PO (09:01)
[2023-10-16] MEDS: Docusate Sodium 100 MG CAPSULE PO (09:01)
[2023-10-16] MEDS: Spironolactone 25 MG TABLET 100 MG PO ×2 (09:01→20:18)
[2023-10-16] MEDS: Acetaminophen 325 MG TABLET 650 MG PO ×2 (09:08→20:19)
[2023-10-16] MEDS: LORazepam 0.5 MG TABLET PO ×2 (10:08→19:04)
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
[2023-10-16 12:34] LABS: CT PCR NOT DETECTED (Not Detect.); NG PCR NOT DETECTED (Not Detect.)
[2023-10-16] MEDS: methocarbamoL 750 MG TABLET PO ×2 (12:51→20:20)
[2023-10-16] MEDS: Ibuprofen 800 MG TABLET PO (14:32)
[2023-10-16] MEDS: Nicotine 21 MG PATCH.TD24 TRANSDERMA (14:32)
[2023-10-16 20:00] VITALS: BP 112/57; PULSE 73; TEMP 36.4
[2023-10-16 20:18] VITALS: BP 112/57
[2023-10-16] MEDS: Sennosides 8.6 MG TABLET 17.2 MG PO (20:19)
[2023-10-16] MEDS: Docusate Sodium 100 MG CAPSULE 200 MG PO (20:21)
[2023-10-16 20:22] VITALS: BP 112/57
[2023-10-16] MEDS: Prazosin HCL 1 MG CAPSULE 8 MG PO (20:22)
[2023-10-16] MEDS: hydrOXYzine HCL 50 MG TABLET PO (22:00)
[2023-10-17] MEDS: methADONE HCl 20 MG/2 ML ORAL.CONC 185 MG PO (07:54)
[2023-10-17] MEDS: lamoTRIgine 100 MG TABLET PO (08:14)
[2023-10-17] MEDS: Dextroamphetamine/Amphetamine XR 10 MG CAP.ER.24H 30 MG PO (08:14)
[2023-10-17] MEDS: Spironolactone 25 MG TABLET 100 MG PO ×2 (08:14→20:36)
[2023-10-17] MEDS: Ibuprofen 800 MG TABLET PO ×2 (08:15→20:36)
[2023-10-17] MEDS: Docusate Sodium 100 MG CAPSULE 200 MG PO ×2 (08:15→20:38)
[2023-10-17] MEDS: Sertraline HCL 50 MG TABLET 150 MG PO (08:15)
[2023-10-17] MEDS: lamoTRIgine 25 MG TABLET PO (08:16)
[2023-10-17] MEDS: Dextroamphetamine/Amphetamine XR 5 MG CAP.ER.24H PO (08:19)
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
[2023-10-17] MEDS: LORazepam 0.5 MG TABLET PO (13:49)
[2023-10-17] MEDS: Nicotine 21 MG PATCH.TD24 TRANSDERMA (14:05)
[2023-10-17 20:00] VITALS: BP 128/58; PULSE 89; RESP 16; TEMP 36.1; O2SAT 99
[2023-10-17] MEDS: methocarbamoL 750 MG TABLET PO (20:36)
[2023-10-17] MEDS: Prazosin HCL 1 MG CAPSULE 8 MG PO (20:37)
[2023-10-17] MEDS: Sennosides 8.6 MG TABLET 17.2 MG PO (20:38)
[2023-10-18] MEDS: methADONE HCl 20 MG/2 ML ORAL.CONC 185 MG PO (07:48)
[2023-10-18] MEDS: Spironolactone 25 MG TABLET 100 MG PO ×2 (08:37→20:58)
[2023-10-18] MEDS: Dextroamphetamine/Amphetamine XR 10 MG CAP.ER.24H 30 MG PO (08:37)
[2023-10-18] MEDS: Sertraline HCL 50 MG TABLET 150 MG PO (08:37)
[2023-10-18] MEDS: lamoTRIgine 25 MG TABLET PO (08:37)
[2023-10-18] MEDS: Docusate Sodium 100 MG CAPSULE 200 MG PO ×2 (08:37→20:57)
[2023-10-18] MEDS: Dextroamphetamine/Amphetamine XR 5 MG CAP.ER.24H PO (08:37)
[2023-10-18] MEDS: lamoTRIgine 100 MG TABLET PO (08:37)
[2023-10-18] MEDS: Nicotine 21 MG PATCH.TD24 TRANSDERMA (08:54)
[2023-10-18] MEDS: Ibuprofen 800 MG TABLET PO ×2 (08:54→19:42)
[2023-10-18 09:07] VITALS: BP 119/59; PULSE 60; RESP 18; TEMP 36.2; O2SAT 100
[2023-10-18] MEDS: LORazepam 0.5 MG TABLET PO ×2 (11:05→19:43)
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
[2023-10-18] MEDS: methocarbamoL 750 MG TABLET PO ×2 (12:26→19:42)
[2023-10-18] MEDS: Acetaminophen 325 MG TABLET 650 MG PO (12:26)
[2023-10-18 20:00] VITALS: BP 118/73; PULSE 91; RESP 16; TEMP 36.8; O2SAT 97
[2023-10-18 20:58] VITALS: BP 118/73
[2023-10-18] MEDS: Sennosides 8.6 MG TABLET 17.2 MG PO (20:58)
[2023-10-18 20:59] VITALS: BP 118/73
[2023-10-18] MEDS: Prazosin HCL 1 MG CAPSULE 8 MG PO (20:59)
[2023-10-19] MEDS: methADONE HCl 20 MG/2 ML ORAL.CONC 185 MG PO (07:52)
[2023-10-19] MEDS: Sertraline HCL 50 MG TABLET 150 MG PO (08:15)
[2023-10-19] MEDS: lamoTRIgine 100 MG TABLET PO (08:15)
[2023-10-19] MEDS: lamoTRIgine 25 MG TABLET PO (08:15)
[2023-10-19] MEDS: Docusate Sodium 100 MG CAPSULE 200 MG PO ×2 (08:15→20:11)
[2023-10-19] MEDS: Dextroamphetamine/Amphetamine XR 5 MG CAP.ER.24H PO (08:15)
[2023-10-19] MEDS: Dextroamphetamine/Amphetamine XR 10 MG CAP.ER.24H 30 MG PO (08:15)
[2023-10-19 08:22] VITALS: BP 129/69; PULSE 64; RESP 16; TEMP 36.2; O2SAT 99
[2023-10-19] MEDS: Ibuprofen 800 MG TABLET PO ×2 (08:49→20:10)
[2023-10-19] MEDS: Spironolactone 25 MG TABLET 100 MG PO ×2 (08:49→20:09)
[2023-10-19] MEDS: Nicotine 21 MG PATCH.TD24 TRANSDERMA (11:08)
[2023-10-19] MEDS: LORazepam 0.5 MG TABLET PO ×2 (11:08→20:09)
[2023-10-19] MEDS: methocarbamoL 750 MG TABLET PO ×2 (14:52→20:09)
[2023-10-19] MEDS: Acetaminophen 325 MG TABLET 650 MG PO (14:52)
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
[2023-10-19 20:00] VITALS: BP 130/73; PULSE 80; RESP 16; TEMP 36.7; O2SAT 98
[2023-10-19 20:09] VITALS: BP 130/73
[2023-10-19 20:10] VITALS: BP 130/73
[2023-10-19] MEDS: Prazosin HCL 1 MG CAPSULE 8 MG PO (20:10)
[2023-10-19] MEDS: Sennosides 8.6 MG TABLET 17.2 MG PO (20:10)
[2023-10-20 08:00] VITALS: BP 123/77; PULSE 62; RESP 16; TEMP 36.2; O2SAT 99
[2023-10-20] MEDS: methADONE HCl 20 MG/2 ML ORAL.CONC 185 MG PO (08:05)
[2023-10-20] MEDS: lamoTRIgine 25 MG TABLET 75 MG PO (08:19)
[2023-10-20] MEDS: Spironolactone 25 MG TABLET 100 MG PO ×2 (08:19→21:04)
[2023-10-20] MEDS: Docusate Sodium 100 MG CAPSULE 200 MG PO ×2 (08:20→21:04)
[2023-10-20] MEDS: Ibuprofen 800 MG TABLET PO ×2 (08:20→21:05)
[2023-10-20] MEDS: Dextroamphetamine/Amphetamine XR 10 MG CAP.ER.24H 30 MG PO (08:20)
[2023-10-20] MEDS: Sertraline HCL 100 MG TABLET 200 MG PO (08:20)
[2023-10-20] MEDS: Dextroamphetamine/Amphetamine XR 5 MG CAP.ER.24H PO (08:21)
[2023-10-20] MEDS: lamoTRIgine 100 MG TABLET PO (08:21)
[2023-10-20] MEDS: Nicotine 21 MG PATCH.TD24 TRANSDERMA (09:20)
[2023-10-20] MEDS: LORazepam 0.5 MG TABLET PO ×2 (09:22→13:54)
[2023-10-20] MEDS: Ondansetron ODT 4 MG TAB.RAPDIS TRANSLINGU (13:19)
[2023-10-20] MEDS: Acetaminophen 325 MG TABLET 650 MG PO (13:54)
[2023-10-20] MEDS: methocarbamoL 750 MG TABLET PO ×2 (13:54→21:05)
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
[2023-10-20 19:47] VITALS: RESP 18
[2023-10-20 21:00] VITALS: BP 130/84; PULSE 70; RESP 16; TEMP 36.5; O2SAT 96
[2023-10-20] MEDS: Sennosides 8.6 MG TABLET 17.2 MG PO (21:05)
[2023-10-20] MEDS: Prazosin HCL 1 MG CAPSULE 8 MG PO (21:05)
[2023-10-21] MEDS: methADONE HCl 20 MG/2 ML ORAL.CONC 185 MG PO (07:58)
[2023-10-21] MEDS: Dextroamphetamine/Amphetamine XR 10 MG CAP.ER.24H 30 MG PO (07:59)
[2023-10-21] MEDS: lamoTRIgine 100 MG TABLET PO (08:00)
[2023-10-21] MEDS: Docusate Sodium 100 MG CAPSULE 200 MG PO ×2 (08:00→20:42)
[2023-10-21] MEDS: Dextroamphetamine/Amphetamine XR 5 MG CAP.ER.24H PO (08:00)
[2023-10-21] MEDS: Sertraline HCL 100 MG TABLET 200 MG PO (08:02)
[2023-10-21] MEDS: lamoTRIgine 25 MG TABLET 75 MG PO (08:02)
[2023-10-21] MEDS: Spironolactone 25 MG TABLET 100 MG PO ×2 (08:02→20:44)
[2023-10-21] MEDS: Nicotine 21 MG PATCH.TD24 TRANSDERMA (08:06)
--- NOTE | 2023-10-21 08:29 | PC.NURSE ---
Late entry for 10/17/23 2289 lorazepam 0.5mg given to Maxi per her request.
[2023-10-21 08:54] VITALS: BP 137/76; PULSE 81; RESP 18; TEMP 36.8; O2SAT 94
[2023-10-21] MEDS: Ibuprofen 800 MG TABLET PO ×2 (09:05→17:24)
[2023-10-21] MEDS: LORazepam 0.5 MG TABLET PO ×2 (09:05→20:43)
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
[2023-10-21 20:00] VITALS: BP 130/54; PULSE 88; RESP 18; TEMP 36.9; O2SAT 96
[2023-10-21] MEDS: Sennosides 8.6 MG TABLET 17.2 MG PO (20:43)
[2023-10-21] MEDS: Acetaminophen 325 MG TABLET 650 MG PO (20:43)
[2023-10-21] MEDS: methocarbamoL 750 MG TABLET PO (20:43)
[2023-10-21] MEDS: Prazosin HCL 1 MG CAPSULE 8 MG PO (20:44)
[2023-10-22] MEDS: methADONE HCl 20 MG/2 ML ORAL.CONC 185 MG PO (08:02)
[2023-10-22] MEDS: lamoTRIgine 100 MG TABLET PO (08:30)
[2023-10-22] MEDS: Docusate Sodium 100 MG CAPSULE 200 MG PO ×2 (08:30→20:49)
[2023-10-22] MEDS: Dextroamphetamine/Amphetamine XR 10 MG CAP.ER.24H 30 MG PO (08:30)
[2023-10-22] MEDS: lamoTRIgine 25 MG TABLET 75 MG PO (08:30)
[2023-10-22] MEDS: Dextroamphetamine/Amphetamine XR 5 MG CAP.ER.24H PO (08:30)
[2023-10-22] MEDS: Sertraline HCL 100 MG TABLET 200 MG PO (08:30)
[2023-10-22] MEDS: Spironolactone 25 MG TABLET 100 MG PO ×2 (08:31→20:49)
[2023-10-22] MEDS: Nicotine 21 MG PATCH.TD24 TRANSDERMA (08:32)
[2023-10-22] MEDS: Ibuprofen 800 MG TABLET PO ×2 (08:46→20:48)
[2023-10-22 08:47] VITALS: BP 114/56; PULSE 69; RESP 18; TEMP 36.6; O2SAT 97
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
[2023-10-22] MEDS: LORazepam 0.5 MG TABLET PO (11:36)
[2023-10-22] MEDS: Acetaminophen 325 MG TABLET 650 MG PO (15:58)
[2023-10-22] MEDS: methocarbamoL 750 MG TABLET PO ×2 (15:58→20:45)
[2023-10-22 20:00] VITALS: BP 123/56; PULSE 88; TEMP 36.6; O2SAT 98
[2023-10-22 20:45] VITALS: BP 123/56
[2023-10-22] MEDS: Prazosin HCL 1 MG CAPSULE 8 MG PO (20:45)
[2023-10-22] MEDS: Sennosides 8.6 MG TABLET 17.2 MG PO (20:48)
[2023-10-22 20:49] VITALS: BP 123/56
[2023-10-23] MEDS: methADONE HCl 20 MG/2 ML ORAL.CONC 185 MG PO (07:44)
[2023-10-23 08:00] VITALS: BP 128/68; PULSE 61; RESP 18; TEMP 2.4; TEMP 36.4; O2SAT 97
[2023-10-23 08:27] VITALS: BP 120/68
[2023-10-23] MEDS: Dextroamphetamine/Amphetamine XR 5 MG CAP.ER.24H PO (08:27)
[2023-10-23] MEDS: Spironolactone 25 MG TABLET 100 MG PO ×2 (08:27→19:53)
[2023-10-23] MEDS: Sertraline HCL 100 MG TABLET 200 MG PO (08:27)
[2023-10-23] MEDS: Dextroamphetamine/Amphetamine XR 10 MG CAP.ER.24H 30 MG PO (08:27)
[2023-10-23] MEDS: Docusate Sodium 100 MG CAPSULE 200 MG PO ×2 (08:28→19:51)
[2023-10-23] MEDS: lamoTRIgine 100 MG TABLET PO (08:28)
[2023-10-23] MEDS: lamoTRIgine 25 MG TABLET 75 MG PO (08:28)
[2023-10-23] MEDS: Nicotine 21 MG PATCH.TD24 TRANSDERMA (08:33)
[2023-10-23] MEDS: Ibuprofen 800 MG TABLET PO ×2 (08:33→19:52)
[2023-10-23] MEDS: LORazepam 0.5 MG TABLET PO ×2 (08:33→14:36)
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
[2023-10-23] MEDS: Acetaminophen 325 MG TABLET 650 MG PO (14:36)
[2023-10-23] MEDS: methocarbamoL 750 MG TABLET PO ×2 (14:36→19:52)
[2023-10-23 19:51] VITALS: BP 126/65
[2023-10-23] MEDS: cloNIDine HCL 0.1 MG TABLET PO (19:51)
[2023-10-23] MEDS: Sennosides 8.6 MG TABLET 17.2 MG PO (19:52)
[2023-10-23 19:53] VITALS: BP 126/65; BP 128/65
[2023-10-23] MEDS: Prazosin HCL 1 MG CAPSULE 8 MG PO (19:53)
[2023-10-23 20:00] VITALS: BP 128/65; PULSE 70; TEMP 36.9; O2SAT 97
[2023-10-24] MEDS: methADONE HCl 20 MG/2 ML ORAL.CONC 185 MG PO (07:54)
[2023-10-24 08:00] VITALS: RESP 18
[2023-10-24] MEDS: lamoTRIgine 25 MG TABLET 75 MG PO (08:20)
[2023-10-24] MEDS: Dextroamphetamine/Amphetamine XR 5 MG CAP.ER.24H PO (08:21)
[2023-10-24] MEDS: Ibuprofen 800 MG TABLET PO ×2 (08:21→17:13)
[2023-10-24] MEDS: lamoTRIgine 100 MG TABLET PO (08:22)
[2023-10-24] MEDS: Sertraline HCL 100 MG TABLET 200 MG PO (08:22)
[2023-10-24] MEDS: Docusate Sodium 100 MG CAPSULE 200 MG PO ×2 (08:22→21:09)
[2023-10-24] MEDS: Dextroamphetamine/Amphetamine XR 10 MG CAP.ER.24H 30 MG PO (08:22)
[2023-10-24] MEDS: Nicotine 21 MG PATCH.TD24 TRANSDERMA (09:22)
[2023-10-24] MEDS: LORazepam 0.5 MG TABLET PO ×2 (10:02→17:14)
[2023-10-24] MEDS: Acetaminophen 325 MG TABLET 650 MG PO ×2 (11:32→21:10)
[2023-10-24] MEDS: methocarbamoL 750 MG TABLET PO ×2 (11:32→21:07)
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
[2023-10-24 20:00] VITALS: BP 152/85; PULSE 86; TEMP 36.2
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
[2023-10-24 21:06] VITALS: BP 152/85
[2023-10-24] MEDS: Prazosin HCL 1 MG CAPSULE 8 MG PO (21:06)
[2023-10-24 21:08] VITALS: BP 152/85
[2023-10-24] MEDS: Spironolactone 25 MG TABLET 100 MG PO (21:08)
[2023-10-24] MEDS: Sennosides 8.6 MG TABLET 17.2 MG PO (21:10)
[2023-10-25 07:51] VITALS: BP 116/70; PULSE 105; RESP 18; TEMP 36.4; O2SAT 98
[2023-10-25] MEDS: methADONE HCl 20 MG/2 ML ORAL.CONC 185 MG PO (07:56)
[2023-10-25] MEDS: Docusate Sodium 100 MG CAPSULE 200 MG PO ×2 (08:18→20:08)
[2023-10-25] MEDS: Dextroamphetamine/Amphetamine XR 10 MG CAP.ER.24H 30 MG PO (08:18)
[2023-10-25] MEDS: Spironolactone 25 MG TABLET 100 MG PO ×2 (08:18→20:10)
[2023-10-25] MEDS: Sertraline HCL 100 MG TABLET 200 MG PO (08:18)
[2023-10-25] MEDS: Dextroamphetamine/Amphetamine XR 5 MG CAP.ER.24H PO (08:19)
[2023-10-25] MEDS: lamoTRIgine 25 MG TABLET 75 MG PO (08:19)
[2023-10-25] MEDS: lamoTRIgine 100 MG TABLET PO (08:19)
[2023-10-25] MEDS: Nicotine 21 MG PATCH.TD24 TRANSDERMA (08:19)
[2023-10-25] MEDS: Ibuprofen 800 MG TABLET PO ×2 (08:23→20:10)
[2023-10-25] MEDS: LORazepam 0.5 MG TABLET PO ×3 (10:57→20:17)
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
[2023-10-25] MEDS: Acetaminophen 325 MG TABLET 650 MG PO (13:46)
[2023-10-25] MEDS: methocarbamoL 750 MG TABLET PO ×2 (13:46→20:11)
[2023-10-25 19:36] VITALS: BP 132/92; PULSE 102; RESP 18; TEMP 36.8; O2SAT 98
[2023-10-25 20:09] VITALS: BP 134/92
[2023-10-25] MEDS: Prazosin HCL 1 MG CAPSULE 8 MG PO (20:09)
[2023-10-25 20:10] VITALS: BP 139/92
[2023-10-25] MEDS: Sennosides 8.6 MG TABLET 17.2 MG PO (20:10)
[2023-10-25 21:05] VITALS: BP 117/62; PULSE 81; RESP 16; TEMP 36.3; O2SAT 98
[2023-10-26] MEDS: methADONE HCl 20 MG/2 ML ORAL.CONC 185 MG PO (07:52)
[2023-10-26 08:00] VITALS: BP 141/67; PULSE 63; RESP 16; TEMP 36.9; O2SAT 98
[2023-10-26] MEDS: Dextroamphetamine/Amphetamine XR 5 MG CAP.ER.24H PO (08:23)
[2023-10-26] MEDS: Nicotine 21 MG PATCH.TD24 TRANSDERMA (08:23)
[2023-10-26] MEDS: Dextroamphetamine/Amphetamine XR 10 MG CAP.ER.24H 30 MG PO (08:24)
[2023-10-26] MEDS: Spironolactone 25 MG TABLET 100 MG PO ×2 (08:24→20:14)
[2023-10-26] MEDS: lamoTRIgine 100 MG TABLET PO (08:25)
[2023-10-26] MEDS: Docusate Sodium 100 MG CAPSULE 200 MG PO ×2 (08:25→20:13)
[2023-10-26] MEDS: lamoTRIgine 25 MG TABLET 75 MG PO (08:26)
[2023-10-26] MEDS: Sertraline HCL 100 MG TABLET 200 MG PO (08:26)
[2023-10-26] MEDS: Ibuprofen 800 MG TABLET PO ×2 (08:46→19:47)
[2023-10-26] MEDS: LORazepam 0.5 MG TABLET PO ×2 (10:23→14:11)
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
[2023-10-26] MEDS: methocarbamoL 750 MG TABLET PO ×2 (14:23→19:46)
[2023-10-26] MEDS: Acetaminophen 325 MG TABLET 650 MG PO (16:07)
[2023-10-26 20:00] VITALS: BP 134/76; PULSE 91; RESP 18; TEMP 36.2; O2SAT 98
[2023-10-26 20:12] VITALS: BP 139/76
[2023-10-26] MEDS: cloNIDine HCL 0.1 MG TABLET PO (20:12)
[2023-10-26 20:13] VITALS: BP 134/76
[2023-10-26] MEDS: Prazosin HCL 1 MG CAPSULE 8 MG PO (20:13)
[2023-10-26] MEDS: Sennosides 8.6 MG TABLET 17.2 MG PO (20:13)
[2023-10-26 20:14] VITALS: BP 134/76
[2023-10-27] MEDS: methADONE HCl 20 MG/2 ML ORAL.CONC 185 MG PO (07:43)
[2023-10-27 08:00] VITALS: BP 131/75; PULSE 82; TEMP 36.5; O2SAT 99
[2023-10-27] MEDS: Nicotine 21 MG PATCH.TD24 TRANSDERMA (08:37)
[2023-10-27] MEDS: Spironolactone 25 MG TABLET 100 MG PO ×2 (08:38→19:46)
[2023-10-27] MEDS: Dextroamphetamine/Amphetamine XR 5 MG CAP.ER.24H PO (08:38)
[2023-10-27] MEDS: lamoTRIgine 25 MG TABLET 75 MG PO (08:38)
[2023-10-27] MEDS: Docusate Sodium 100 MG CAPSULE 200 MG PO ×2 (08:38→19:46)
[2023-10-27] MEDS: Dextroamphetamine/Amphetamine XR 10 MG CAP.ER.24H 30 MG PO (08:38)
[2023-10-27] MEDS: Sertraline HCL 100 MG TABLET 200 MG PO (08:38)
[2023-10-27] MEDS: Ibuprofen 800 MG TABLET PO ×2 (08:39→19:41)
[2023-10-27] MEDS: lamoTRIgine 100 MG TABLET PO (08:39)
[2023-10-27] MEDS: LORazepam 0.5 MG TABLET PO ×2 (09:21→13:54)
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
[2023-10-27] MEDS: methocarbamoL 750 MG TABLET PO ×2 (12:25→19:41)
[2023-10-27] MEDS: Acetaminophen 325 MG TABLET 650 MG PO (12:25)
[2023-10-27] MEDS: hydrOXYzine HCL 50 MG TABLET PO (19:41)
[2023-10-27] MEDS: Sennosides 8.6 MG TABLET 17.2 MG PO (19:45)
[2023-10-27 19:46] VITALS: BP 136/81
[2023-10-27 19:48] VITALS: BP 136/81
[2023-10-27] MEDS: Prazosin HCL 1 MG CAPSULE 8 MG PO (19:48)
[2023-10-27 20:00] VITALS: BP 136/81; PULSE 91; RESP 16; TEMP 36.8; O2SAT 99
[2023-10-28] MEDS: methADONE HCl 20 MG/2 ML ORAL.CONC 185 MG PO (07:49)
[2023-10-28 08:09] VITALS: BP 159/91; PULSE 70; RESP 16; TEMP 36.5; O2SAT 96
[2023-10-28 08:14] VITALS: BP 126/64; PULSE 88; O2SAT 100
[2023-10-28] MEDS: Spironolactone 25 MG TABLET 100 MG PO (08:39)
[2023-10-28] MEDS: Dextroamphetamine/Amphetamine XR 10 MG CAP.ER.24H 30 MG PO (08:40)
[2023-10-28] MEDS: Docusate Sodium 100 MG CAPSULE 200 MG PO (08:40)
[2023-10-28] MEDS: Dextroamphetamine/Amphetamine XR 5 MG CAP.ER.24H PO (08:40)
[2023-10-28] MEDS: Sertraline HCL 100 MG TABLET 200 MG PO (08:40)
[2023-10-28] MEDS: lamoTRIgine 25 MG TABLET 75 MG PO (08:40)
[2023-10-28] MEDS: lamoTRIgine 100 MG TABLET PO (08:40)
[2023-10-28] MEDS: LORazepam 0.5 MG TABLET PO (09:25)
[2023-10-28] MEDS: Ibuprofen 800 MG TABLET PO (09:25)
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
--- NOTE | 2023-10-31 16:55 | PM.EVENT ---
Documented by User: Vero Rosario APRN 10/31/23 16:56 Event Note Date of Service: 10/31/23 Event Note: Received a call from [facility]. Pt has presented to their ER today asking for assistance with housing. Team asks for a medicine list-an updated list was provided from 10/28/23. Time Spent With Patient Time: Total time managing care of this patient today ____ minutes. Documented by User: Erasto Gamboa MD 10/31/23 17:03 Event Note Date of Service: 10/31/23
== END 2023-10-28 11:42 | disposition other institution (70) | DRG 885 ==
PROVIDERS: Admitting Provider Psychiatry & Neurology Psychiatry; PCP Pediatrics; Visit Provider Clinical Nurse Specialist Psychiatric/Mental Health, Adult
DX: F33.2 Major depressive disorder, recurrent severe without psychotic features (principal); S32.038A Other fracture of third lumbar vertebra, initial encounter for closed fracture; S32.048A Other fracture of fourth lumbar vertebra, initial encounter for closed fracture; R45.851 Suicidal ideations; F11.20 Opioid dependence, uncomplicated; F19.20 Other psychoactive substance dependence, uncomplicated; T74.21XA Adult sexual abuse, confirmed, initial encounter; B19.20 Unspecified viral hepatitis C without hepatic coma; G89.11 Acute pain due to trauma; M79.10 Myalgia, unspecified site; J45.20 Mild intermittent asthma, uncomplicated; F17.210 Nicotine dependence, cigarettes, uncomplicated; R45.850 Homicidal ideations; Z71.6 Tobacco abuse counseling; F64.0 Transsexualism; F43.0 Acute stress reaction; F84.0 Autistic disorder; F43.10 Post-traumatic stress disorder, unspecified; F60.3 Borderline personality disorder; Z79.51 Long term (current) use of inhaled steroids; Z79.899 Other long term (current) drug therapy
CPT/HCPCS: 36415; 70450; 72040; 72072; 72100; 73030; 73130; 80053; 80061; 82607; 82746; 83036; 84443; 85025; 86704; 86706; 86709; 86803; 87340; 87389; 87491; 87591

== ENCOUNTER → 2023-10-06 19:23 | Outpatient (BNV) | payer MEDICAID, SELFPAY | PROVIDERS: Admitting Provider Psychiatry & Neurology Psychiatry; PCP Pediatrics; Visit Provider Student in an Organized Health Care Education/Training Program | DX: F43.10 Post-traumatic stress disorder, unspecified (principal); F33.2 Major depressive disorder, recurrent severe without psychotic features; F43.0 Acute stress reaction | CPT/HCPCS: 99222 ==

== ENCOUNTER → 2023-10-06 19:23 | Outpatient (BNV) | payer OTHER, SELFPAY | PROVIDERS: Admitting Provider Psychiatry & Neurology Psychiatry; PCP Pediatrics; Visit Provider Psychiatry & Neurology Psychiatry | DX: F33.2 Major depressive disorder, recurrent severe without psychotic features (principal); F43.11 Post-traumatic stress disorder, acute; F43.0 Acute stress reaction; F19.20 Other psychoactive substance dependence, uncomplicated | CPT/HCPCS: 90792; 99231; 99232; 99238; 99499 ==

== ENCOUNTER 2024-10-27 16:26 | Emergency (ER) | payer MEDICAID, SELFPAY ==
[2024-10-27 16:33] VITALS: BP 129/67; PULSE 85; RESP 20; TEMP 36.1; O2SAT 97; BMI 41.3
--- NOTE | 2024-10-27 16:34 | ED_ITS ---
HPI - General Adult General Chief complaint: General Medical Stated complaint: replacement methadone dose Time Seen by Provider: 10/27/24 17:07 Related Data Home Medications ?Medication ?Instructions ?Recorded ?Confirmed methadone 10 mg/mL oral 145 mg PO DAILY 06/04/23 concentrate (Methadone Intensol) methadone 10 mg/mL oral 90 mg PO DAILY@1800 10/27/24 10/27/24 concentrate (Methadone Intensol) Previous Rx's ?Medication ?Instructions ?Recorded estradiol valerate 20 mg/mL 10 mg (0.5 mL) IM Q7D #5 m L 10/12/23 intramuscular oil Estradiol Valerate 10 mg IM Q7D #4 inserts 10/06 03/30 clonidine HCl 0.1 mg tablet 0.1 mg PO TID PRN ptsd #30 tabs 10/26/23 hydroxyzine pamoate 50 mg capsule 50 mg PO TID PRN anx iety #60 caps 10/26/23 ibuprofen 800 mg tablet 800 mg PO Q8H PRN Pain, 10/06 03/30 Moderate(Pain Scale 4-6) #30 tabs lamotrigine 100 mg tablet 100 mg PO DAILY #30 tabs lamotrigine 25 mg tablet 75 mg (3 x 25 mg) PO DAILY # 90 tabs 10/26/23 lisdexamfetamine 70 mg capsule 70 mg PO QAM 7 days #30 caps 10/26/23 lorazepam 0.5 mg tablet 0.5 mg PO BID PRN Anxiety #1 4 tabs 10/26/23 methocarbamol 750 mg tablet 750 mg PO TID PRN muscle s pasms 10/26/23 #30 tabs sertraline 100 mg tablet 200 mg (2 x 100 mg) PO DAILY #60 10/26/23 tabs docusate sodium 100 mg capsule 200 mg (2 x 100 mg) PO BID #360 10/27/23 (Colace) caps sennosides 8.6 mg tablet (Senna 17.2 mg (2 x 8.6 mg) P O BEDTIME 10/27/23 Lax) #180 tabs spironolactone 100 mg tablet 100 mg PO BID #180 tabs 0 10/27/23 Allergies Allergy/AdvReac Type Severity Reaction Status Date / Time aripiprazole (From [facility]) Allergy Unknown UNKNOWN Verified 10/27/24 16:35 PMFSH Past Medical History Medical History Polysubstance (excluding opioids) dependence ADHD MDD (major depressive disorder), recurrent episode, severe Polysubstance abuse Perianal cyst Opioid use disorder, severe, dependence Opiate misuse Cocaine substance abuse Borderline personality disorder PTSD (post-traumatic stress disorder) HTN (hypertension) Tibial torsion, bilateral Asthma IBS (irritable bowel syndrome) Abscess of left upper extremity ADHD Depression Anxiety PTSD (post-traumatic stress disorder) Social History Social History Household Members: None Housing: Homeless Housing Other:: [place] [facility] Do you presently have visiting nurse or other home services: No Unable to assess alcohol history related to: Refusing to respond Alcohol intake: never Patient Tobacco Use Status: Current everyday Tobacco user Tobacco use type: Cigarette Cigarette Packs Per Day: 2 Cigarettes Per Day: 40.0 Years Smoked: 15 e-Cigarette/Vaping Use: Never Used Second Hand Smoke Exposure: Yes Substance Use Type: Amphetamines, Crack/Cocaine, Heroin, Marijuana, Opiates and Painkillers Advance Directives: No Advance Directives Information Provided: No service: No Current occupational status: unemployed Sexual orientation: Lesbian/Rao/Homosexual Physical Exam ED Vital Signs: Vital Signs - 24 hr 10/27/24 16:33 Temperature 97 F Pulse Rate 85 Respiratory Rate 20 Blood Pressure 129/67 Pulse Oximetry 97 Oxygen Delivery Method Room Air BMI result Body Mass Index 41.3 Course Reevaluation(s) Reevaluation #1: This is a duplicate note. Please see Dr. vu's completed note regarding patient's visit on 10/27/2024. Discharge Plan Discharge Clinical Impression: Methadone dependence Patient Disposition: Home, Self-Care Prescriptions: No Action methadone [Methadone Intensol] 10 mg/mL Concentrate 145 mg PO DAILY estradiol valerate 20 mg/mL oil 10 mg IM Q7D Qty: 5 0RF Rx Instructions: Use 25G, 5/8 or 1 inch needle clonidine HCl 0.1 mg Tablet 0.1 mg PO TID PRN (Reason: ptsd) Qty: 30 0RF Protocol: Hold for SBP< HOLD for SBP < : 90 ibuprofen 800 mg Tablet 800 mg PO Q8H PRN (Reason: Pain, Moderate(Pain Scale 4-6)) Qty: 30 0RF sertraline 100 mg Tablet 200 mg PO DAILY Qty: 60 0RF lamotrigine 25 mg Tablet 75 mg PO DAILY Qty: 90 0RF lorazepam 0.5 mg Tablet 0.5 mg PO BID PRN (Reason: Anxiety) Qty: 14 0RF Estradiol Valer 10 mg IM Q7D Qty: 4 0RF hydroxyzine pamoate 50 mg capsule 50 mg PO TID PRN (Reason: anxiety) Qty: 60 0RF methocarbamol 750 mg Tablet 750 mg PO TID PRN (Reason: muscle spasms) Qty: 30 0RF lamotrigine 100 mg Tablet 100 mg PO DAILY Qty: 30 0RF lisdexamfetamine 70 mg Capsule 70 mg PO QAM 7 Days Qty: 30 0RF Rx Instructions: Partial Fill upon patient request. spironolactone 100 mg tablet 100 mg PO BID Qty: 180 0RF sennosides [Senna Lax] 8.6 mg tablet 17.2 mg PO BEDTIME Qty: 180 0RF docusate sodium [Colace] 100 mg capsule 200 mg PO BID Qty: 360 0RF methadone [Methadone Intensol] 10 mg/mL Concentrate 90 mg PO DAILY@1800 Print Language: [place] Citizen
--- NOTE | 2024-10-27 17:10 | PC.NURSE ---
verified with Taryn at [facility] Clear view pt has split mehadone dosing. last seen in clinic 10/22/24 145mg Qam and 90MG qpm
--- OUTSIDE RECORDS SUMMARY | 2024-10-27 17:14 | XMS_ITS | Clinical Summary ---
Author Organization [facility] Address [address] [place] [address] Phone Care Team Providers Care Manufacturing Technology Professor Name Role Phone Physician, No Pcp Primary Care Provider Unavaila ble Allergies Active Allergy Reactions Criticality Noted Date Comments Aripiprazole 05/03/2024 Medications No known medications Medical History Medical History Date Comments Tibial torsion, bilateral PTSD (post-traumatic stress disorder) Major depression Adhd [id number] transgender person Social History Tobacco Use Types Packs/Day Years Used Date Smoking Tobacco: Every Day Cigarettes 1 15 Tobacco Cessation:Ready to Q uit: Not Asked; Counseling Given: Not Answered Alcohol Use Standard Drinks/Week Comments Yes 0 (1 standard drink = 0.6 oz pure alcohol) social drinker - reports occassional use Comments No Sex and Gender Information Value Date Recorded Sex Assigned at Male 05/03/2024 1:45 PM EST Legal Sex Male 8:34 PM EST Gender Identity Female 05/03/2024 1:45 PM EST Sexual Orientation Choose not to disclose 2024 1:45 PM EST Obstetrics History Last Filed Vital Signs Vital Sign Reading Time Taken Comments Blood Pressure 125/72 05/03/2024 2:02 PM EST Pulse 71 05/03/2024 2:02 PM EST Temperature 36.6 C (97.9 F) 05/03/2024 2:02 PM EST Respiratory Rate 16 05/03/2024 2:02 PM EST Oxygen Saturation 95% 05/03/2024 2:02 PM EST Inhaled Oxygen Concentration - - Weight 118 kg (260 lb) 05/03/2024 2:02 PM EST Height 175.3 cm (5' 9 ) 05/03/2024 2:02 PM EST Body Mass Index 38.4 05/03/2024 2:02 PM EST Plan of Treatment Health Maintenance Due Date Last Done Comments Hepatitis B Vaccines (1 of 3 - 19+ 3-dose series) 12/02/2007 Pneumococcal Vaccine: Pediatrics (0 to 5 Years) and At-Risk Patients (6 to 49 Years) (1 of 2 - PCV) 12/02/2007 Hepatitis A Vaccines (2 of 2 - Risk 2-dose series) 08/17/2021 02/16/2021 Cholesterol Screening (Lipid Panel) 04/01/2023 HIV Screening 04/01/2023 Hepatitis C Screening 04/01/2023 Social Influencers of Health Screening 04/01/2023 COVID-19 Vaccine (3 - 2023-2 5 season) 2023 02/15/2022, 08/18/2020 Depression Screening 03/07/2024 Influenza Vaccine (#1) 2024 DTaP,Tdap,and Td Vaccines (2 - Td or Tdap) 01/25/2032 01/24/2022 HIB Vaccines Aged Out No longer eligi ble based on patient's age to complete this topic HPV Vaccines Aged Out No longer eligi ble based on patient's age to complete this topic IPV Vaccines Aged Out No longer eligi ble based on patient's age to complete this topic MMR Vaccines Aged Out No longer eligi ble based on patient's age to complete this topic Meningococcal ACWY Vaccine Aged Out N o longer eligible based on patient's age to complete this topic Meningococcal B Vaccine Aged Out No l onger eligible based on patient's age to complete this topic RSV Immunization Patients Under 20 months Aged Out No longer eligible b ased on patient's age to complete this topic Varicella Vaccines Aged Out No longer eligible based on patient's age to complete this topic Insurance MEDICAID [facility] Care Teams Manufacturing Technology Professor Relationship Specialty Start Date End Date Physician, No Pcp PCP - General 05/03/24
--- OUTSIDE RECORDS SUMMARY | 2024-10-27 17:14 | XMS_ITS | Clinical Summary ---
Author Organization [facility] Address [address] [place] [address] Care Team Providers Care Temporary Staff Accountant Name Role Phone Unknown Primary Care Provider [phone] Allergies Active Allergy Reactions Criticality Noted Date Comments Aripiprazole GI Intolerance/Nausea/Vomiting Low Medications * This document contains information received from the source organization and may not represent a complete record from that organization. estradiol valerate (DELESTROGEN) 20 MG/ML injection Inject 0.5 mL (10 mg total) into the shoulder, thigh, or buttocks every 7 days. 4 Active methocarbamol (ROBAXIN) 750 MG tabletIndicatio ns:MDD (major depressive disorder), recurrent severe, without psychosis (HCC) Take 1 tablet (750 mg total) by mouth 2 (two) times a day as needed for muscle spasms (muscle cramps). 28 tablet 1 4 Active LORazepam (ATIVAN) 1 MG tabletIndicatio ns:MDD (major depressive disorder), recurrent severe, without psychosis (HCC) Take 1 tablet (1 mg total) by mouth 2 (two) times a day as needed for anxiety. 28 tablet 1 4 Active tenofovir disoproxil fumarate (VIREAD) 300 MG tabletIndicatio ns:MDD (major depressive disorder), recurrent severe, without psychosis (HCC) Take 1 tablet (300 mg total) by mouth every 24 hours around the clock. 14 tablet 1 4 Active senna-docusate (SENNA-S) 8.6-50 MGIndications:M DD (major depressive disorder), recurrent severe, without psychosis (HCC) Take 2 tablets by mouth nightly. 60 tablet 4 Active prazosin (MINIPRESS) 5 MG capsuleIndicati ons:MDD (major depressive disorder), recurrent severe, without psychosis (HCC) Take 1 capsule (5 mg total) by mouth nightly. 14 capsule 1 4 Active nicotine (NICODERM CQ) 21 MG/24HR patchIndication s:MDD (major depressive disorder), recurrent severe, without psychosis (HCC) Place 1 patch on the skin daily. 30 patch 4 Active naloxone (NARCAN) 4 mg/0.1 mL Liquid nasal spray deviceIndicatio ns:MDD (major depressive disorder), recurrent severe, without psychosis (HCC) [place] contents (4mg) into one nostril once. May repeat every 2 to 3 minutes in alternating nostrils. Call 911 immediately after use. 1 each 4 Active hydrOXYzine HCl (ATARAX) 50 MG tabletIndicatio ns:MDD (major depressive disorder), recurrent severe, without psychosis (HCC) Take 1 tablet (50 mg total) by mouth 2 (two) times a day as needed for anxiety. 28 tablet 1 4 Active dolutegravir (TIVICAY) 50 MG Tab tabletIndicatio ns:MDD (major depressive disorder), recurrent severe, without psychosis (HCC) Take 1 tablet (50 mg total) by mouth daily. 14 tablet 1 4 Active spironolactone (ALDACTONE) 100 MG tabletIndicatio ns:MDD (major depressive disorder), recurrent severe, without psychosis (HCC) Take 1 tablet (100 mg total) by mouth 2 (two) times a day with meals. 28 tablet 1 4 Active sertraline (ZOLOFT) 100 MG tabletIndicatio ns:MDD (major depressive disorder), recurrent severe, without psychosis (HCC) Take 2 tablets (200 mg total) by mouth daily. 28 tablet 1 4 Active lamoTRIgine (LaMICtal) 200 MG tabletIndicatio ns:MDD (major depressive disorder), recurrent severe, without psychosis (HCC) Take 1 tablet (200 mg total) by mouth daily. 14 tablet 1 4 Active docusate sodium (COLACE) 100 MG capsuleIndicati ons:MDD (major depressive disorder), recurrent severe, without psychosis (HCC) Take 2 capsules (200 mg total) by mouth 2 (two) times a day. 56 capsule 4 Active cloNIDine (CATAPRES) 0.1 MG tabletIndicatio ns:MDD (major depressive disorder), recurrent severe, without psychosis (HCC) Take 1 tablet (0.1 mg total) by mouth 3 (three) times a day as needed (Anxiety). 42 tablet 1 4 Active Active Problems Problem Noted Date Diagnosed Date Suicidal ideation 10/31/2023 MDD (major depressive disord er), recurrent severe, without psychosis 10/31/2023 Social History Tobacco Use Types Packs/Day Years Used Date Smoking Tobacco: Unknown Tobacco Cessation:Counseling Given: Not Answered [facility] Utilities Answer Date Recorded In the past 12 months has th e [employer], gas, oil, or water Lomography threatened to shut off services in your home? Patient declined 11/09/2023 AUDIT-C Answer Date Recorded Q1: How often do you have a drink containing alcohol? Never 10/31/2023 Q2: How many drinks containi ng alcohol do you have on a typical day when you are drinking? Patient does not drink Q3: How often do you have si x or more drinks on one occasion? Never 10/31/2023 Overall Financial Resource Strain (CARDIA) Answe r Date Recorded How hard is it for you to pa y for the very basics like food, housing, medical care, and heating? Very hard 11/09/2023 PHQ-2 Answer Date Recorded PHQ-2 Total Score 6 10/31/2023 Hunger Vital Sign Answer Date Recorded Within the past 12 months, y ou worried that your food would run out before you got the money to buy more. Sometimes true Within the past 12 months, t he food you bought just didn't last and you didn't have money to get more. Sometimes true 06/2023 PRAPARE - Transportation Answer Date Re corded In the past 12 months, has l ack of transportation kept you from medical appointments or from getting medications? Patient declined 11/09/2023 In the past 12 months, has l ack of transportation kept you from meetings, work, or from getting things needed for daily living? Patient declined 11/09/2023 Housing Stability Vital Sign Answer Cody e Recorded In the last 12 months, was t here a time when you were not able to pay the mortgage or rent on time? Patient declined 11/09/19 24 [address] Lived in the Last Year Not on f ile 11/09/2023 In the last 12 months, was t here a time when you did not have a steady place to sleep or slept in a intermediate (including now)? Patient declined 11/09/2023 Comments Unknown Sex and Gender Information Value Date Recorded Sex Assigned at Female 10/31/2023 1:29 PM EDT Legal Sex Male 10:11 AM EDT Gender Identity Female 10/31/2023 1:29 PM EDT Sexual Orientation Choose not to disclose 2023 1:29 PM EDT Last Filed Vital Signs Vital Sign Reading Time Taken Comments Blood Pressure 126/93 11/08/2023 9:06 PM EDT Pulse 83 11/08/2023 9:05 PM EDT Temperature 36.5 C (97.7 F) 11/08/2023 3:50 PM EDT Respiratory Rate 18 11/06/2023 7:46 AM EDT Oxygen Saturation 90% 11/08/2023 9:06 PM EDT Inhaled Oxygen Concentration - - Weight 109 kg (240 lb) 10/31/2023 7:00 PM EDT Height 175.3 cm (5' 9 ) 10/31/2023 7:00 PM EDT Body Mass Index 35.44 10/31/2023 7:00 PM EDT Plan of Treatment Health Maintenance Due Date Last Done Comments Hepatitis C Virus Screening 1988 DTaP/Tdap/Td Vaccines (1 - Tdap) 12/02/2007 Hepatitis B Vaccines (1 of 3 - 19+ 3-dose series) 12/02/2007 Pap Smear (Ages 21-65) 2009 HPV Vaccines (1 - 3-dose SCD M series) 12/02/2015 COVID-19 Vaccine ( - 2023-2 5 season) 2023 Influenza Vaccine 10/05/2024 HIV Screening Completed 10/31/2023 Pneumococcal Vaccine: Pediat tessie (0-5 Years) and At-Risk Patients (6 to 49 Years) Aged Out No longer eligible b ased on patient's age to complete this topic Procedures Procedure Name Priority Date/Time Associated Diagnosis Comments HIV 1/2 AG/AB CMIA REFLEX TO CONFIRMATION STAT 10/31/2023 12:36 PM EDT from Last 3 Months or Most Recently Relevant to Health Maintenance Results * HIV 1/2 Ag/Ab CMIA Reflex to Confirmation (10/31/2023 12:36 PM EDT) HIV 1/2 Ag/Ab CMIA Nonreactive Nonreactive 11/01/2023 11:15 AM EDT [facility] Comment: Results show no evidence of infection by HIV 1/2. If clinically indicated, repeat CMIA or test by nucleic acid amplification. HIV 1/2 Antigen/Antibody CMIA reflex to confirmation AND HIV-1 RNA viral load recommended in patients who are taking or have recently taken PrEP. Blood Serum specimen / Unknown 10/31/2023 12:36 PM EDT 10/31/2023 1:04 PM EDT us Car Melton PA-C LAB BLOOD ORDERABLES Final Res ult [facility] [address] from Last 3 Months or Most Recently Relevant to Health Maintenance Insurance [facility] Advance Directives * Full Code (Latest Code Status on File) Date Activated Date Inactivated Comments 10/31/2023 5:02 PM Question Answer Comments Decision Thoroughly Discussed with: Patient Care Teams Temporary Staff Accountant Relationship Specialty Start Date End Date Unknown Unknow Provider Address PCP - General Internal Medicine 10/31/23
--- OUTSIDE RECORDS SUMMARY | 2024-10-27 17:14 | XMS_ITS ---
Author Name [facility] Organization Unknown Results Test Name/Text Value Interpretation Date Range Source Folate SerPl-mCnc Specimen hemolyzed. Test not performed. Normal 11/02/2023 7.2 - [facility] PCP Ur Ql Scn>25 ng/mL Negative Normal 11/01/2023 - CCT fentaNYL+Norfentany l Ur Ql Scn Test not performed due to possible interfering substance, suggest repeat testing. Abnormal 11/01/2023 - CCT Amphetamines Ur Ql Positive Abnormal 11/01/2023 - CCT Barbiturates Ur Ql Scn>200 ng/mL Negative Normal 11/01/2023 - [facility] Cannabinoids Ur Ql Scn>50 ng/mL Positive Abnormal 11/01/2023 - CCT BZE Ur Ql Positive Abnormal 11/01/2023 - CCT Benzodiaz Ur Ql Scn>200 ng/mL Negative Normal 11/01/2023 - [facility] Opiates Ur Ql Scn>300 ng/mL Negative Normal 11/01/2023 - CCT HIV 1+2 Ab+HIV1 p24 Ag Ser EIA-aCnc Nonreactive Normal 11/01/2023 - [facility] ALT SerPl-cCnc 832.0 U/L Above high normal 10/31/2023 10 - 5 5 [facility] Anion Gap Bld-sCnc 10.0 Normal 10/31/2023 7 - 17 [facility] Prot SerPl-mCnc 6.7 g/dL Normal 10/31/2023 6.3 - 8.[address] Albumin SerPl-mCnc 4.0 g/dL Normal 10/31/2023 3.5 - 5 [facility] BUN/Creat SerPl 39.0 Ratio Above high normal 10/31/2023 10 - 25 [facility] Chloride SerPl-sCnc 100.0 mmol/L Normal 10/31/2023 98 - 1 07 [facility] Globulin Ser Calc-mCnc 2.7 g/dL Normal 10/31/2023 1.5 - 3.9 [facility] Bilirub SerPl-mCnc 0.4 mg/dL Normal 10/31/2023 0.2 - 1 [facility] CO2 SerPl-sCnc 26.0 mmol/L Normal 10/31/2023 22 - 33 HH CCT Glucose SerPl-mCnc 105.0 mg/dL Above high normal 10/31/2023 65 - 99 [facility] AST SerPl-cCnc 387.0 U/L Above high normal 10/31/2023 10 - 5 5 [facility] Creat SerPl-mCnc 0.8 mg/dL Normal 10/31/2023 0.5 - 1.3 HH CCT GFR/BSA.pred SerPlBld [id number] >90.0 Normal 10/31/2023 59 - [facility] ALP SerPl-cCnc 73.0 U/L Normal 10/31/2023 45 - 128 [facility] T BUN SerPl-mCnc 31.0 mg/dL Above high normal 10/31/2023 8 - 2 1 [facility] Potassium SerPl-sCnc 3.6 mmol/L Normal 10/31/2023 3.4 - 5.3 [facility] Sodium SerPl-sCnc 136.0 mmol/L Normal 10/31/2023 136 - 14 5 [facility] Albumin/Glob SerPl 1.5 Ratio Normal 10/31/2023 1 - 3 [facility] Calcium SerPl-mCnc 8.4 mg/dL Below low normal 10/31/2023 8.7 - 10.5 [facility] Imm Granulocytes num Bld Auto 0.03 Thou/uL Normal 10/31/2023 0 - 0.1 [facility] Eosinophil/leuk NFr Bld Auto 2.1 % Normal 10/31/2023 [facility] RDW RBC Auto-Rto 14.3 % Normal 10/31/2023 11.5 - 14.5 [facility] Basophils num Bld Auto 0.04 Thou/uL Normal 10/31/2023 0 - 0.2 [facility] Imm Granulocytes/leuk NFr Bld Auto 0.3 % Normal 10/31/2023 [facility] MCV RBC Auto 85.0 fL Normal 10/31/2023 80 - 100 [facility] Hgb Bld-mCnc 10.9 g/dL Below low normal 10/31/2023 13 - 17.7 [facility] PMV Bld Auto 10.1 fL Normal 10/31/2023 7.5 - 12.5 [facility] Monocytes num Bld Auto 0.81 Thou/uL Normal 10/31/2023 0.2 - 1.5 [facility] Platelet num Bld Auto 175.0 Thou/uL Normal 10/31/2023 150 - 450 [facility] Eosinophil num Bld Auto 0.19 Thou/uL Normal 10/31/2023 0 - 0.7 [facility] Monocytes/leuk NFr Bld Auto 8.8 % Normal 10/31/2023 [facility] Neutrophils/leuk NFr Bld Auto 63.9 % Normal 10/31/2023 [facility] MCH RBC Qn Auto 27.7 pg Normal 10/31/2023 26 - [address] Lymphocytes/leuk NFr Bld Auto 24.5 % Normal 10/31/2023 [facility] MCHC RBC Auto-mCnc 32.6 g/dL Normal 10/31/2023 30 - 36 [facility] RBC num Bld Auto 3.94 Mil/uL Below low normal 10/31/2023 4.5 - 6.2 H[facility]CT Hct VFr Bld Auto 33.4 % Below low normal 10/31/2023 39 - 54 [facility] Lymphocytes num Bld Auto 2.25 Thou/uL Normal 10/31/2023 1.5 - 4.5 [facility] Neutrophils num Bld Auto 5.86 Thou/uL Normal 10/31/2023 2 - 7.5 [facility] Basophils/leuk NFr Bld Auto 0.4 % Normal 10/31/2023 [facility] WBC num Bld Auto 9.2 Thou/uL Normal 10/31/2023 4 - 11 [facility] Encounters Encounter Type Encounter Reason Primary Diagnosis Location Date Observation Suicidal ideations Suicidal ideations [facility] [employer] 10/31/2023 Care Team Organization Name Specialty Phone Email Start Date End Da te [employer] 10/31/2023 05/23/2024 [employer] 10/31/2023
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
[2024-10-27] MEDS: methADONE HCl 20 MG/2 ML ORAL.CONC 145 MG PO (18:06)
--- NOTE | 2024-10-27 18:11 | PC.NURSE ---
pt medicated per MAR- pt provided with last methadone dose letter
[2024-10-27 18:12] VITALS: BP 129/67; PULSE 85; RESP 20; TEMP 36.1; O2SAT 97
== END 2024-10-27 18:12 | disposition home or self-care (01) ==
PROVIDERS: Emergency Provider Student in an Organized Health Care Education/Training Program
DX: F11.20 Opioid dependence, uncomplicated (principal); Z79.899 Other long term (current) drug therapy
CPT/HCPCS: 99282; 99283

== ENCOUNTER 2024-10-28 10:36 | Emergency (ER) | payer MEDICAID, SELFPAY ==
[2024-10-28 10:39] VITALS: BP 138/67; PULSE 72; RESP 16; TEMP 36.8; O2SAT 96; BMI 43.7
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
--- OUTSIDE RECORDS SUMMARY | 2024-10-28 12:19 | XMS_ITS | Clinical Summary ---
Author Organization [facility] Address [address] [place] [address] Phone Care Team Providers [facility] [employer] Name Role Phone Physician, No Pcp Primary Care Provider Unavaila ble Allergies Active Allergy Reactions Criticality Noted Date Comments Aripiprazole 05/03/2024 Medications No known medications Medical History Medical History Date Comments Tibial torsion, bilateral PTSD (post-traumatic stress disorder) Major depression Adhd [id number] transgender person Social History Tobacco Use Types [...] age to complete this topic Insurance MEDICAID [facility] Care Teams [employer] Relationship Specialty Start Date End Date Physician, No Pcp PCP - General 05/03/24
[2024-10-28] MEDS: methADONE HCl 20 MG/2 ML ORAL.CONC 145 MG PO (12:26)
[2024-10-28 12:29] VITALS: BP 138/67; PULSE 72; RESP 16; TEMP 36.8; O2SAT 96
== END 2024-10-28 12:30 | disposition home or self-care (01) ==
PROVIDERS: Emergency Provider Emergency Medicine
DX: F11.20 Opioid dependence, uncomplicated (principal); Z72.0 Tobacco use
CPT/HCPCS: 99283